=== PATIENT | female | born 1945 | race Caucasian/White ===

== ENCOUNTER 2020-04-14 20:14 | Inpatient (IN) | payer MEDICARE, MEDICAID, SELFPAY ==
--- NOTE | ~2020-04-14 | US_ITS ---
EXAMINATION: NONINVASIVE ASSESSMENT OF THE ARTERIES OF BOTH LOWER EXTREMITIES Kimo Longoria MD CLINICAL INFORMATION: Nonhealing ulcer TECHNIQUE: Bilateral lower extremity duplex ultrasound was performed with velocity measurements and waveform analysis in the common femoral arteries, profunda femoris arteries, proximal mid and distal superficial femoral arteries, popliteal arteries and tibial vessels. This study was performed only at rest. COMPARISON: CT abdomen pelvis 04/15/2020 FINDINGS: Velocities in cm/sec and phasicity as well as the presence of plaque are reported below. RIGHT LEG: There is monophasic flow present in the common femoral artery suggesting inflow disease with SFA occlusion poor runoff visualized. Common Femoral: 38 Profunda Femoris: 37 Proximal SFA: 28 Mid SFA: Occluded Distal SFA: 21, very little flow Popliteal: 48, very little flow Tibial: 27, very little flow LEFT LEG: There is monophasic flow present in the common femoral artery suggesting inflow disease with SFA occlusion and poor runoff. Common Femoral: 132 Profunda Femoris: Not seen Proximal SFA: 13.5, very little flow Mid SFA: Occluded Distal SFA: Occluded Popliteal: 54 Tibial: 28 US/US arterial duplex LE BI IMPRESSION: Marked bilateral peripheral vascular disease bilateral SFA occlusions and monophasic flow in the common femoral arteries suggestive of severe inflow disease. Recent noncontrast CT scan demonstrated considerable atherosclerotic plaque in the aorta and iliac vessels but without IV contrast, the luminal inflow cannot be assessed. CT angiography would be helpful for further evaluation. If the patient's creatinine precludes this, MR angiography may be of value, possibly even with iron contrast agents.
--- NOTE | ~2020-04-14 | XR_ITS ---
EXAMINATION: XR FOOT, RIGHT CLINICAL INFORMATION: Infected great toe. Suspected osteomyelitis. COMPARISON: None TECHNIQUE: AP, lateral, and oblique views of the right foot. FINDINGS: The tip of the terminal phalanx of the right great toe shows cortical destruction and radiolucencies with soft tissue gas seen within the adjacent soft tissues. The findings are highly suspicious for osteomyelitis. Extensive vascular, arterial calcifications are present. No additional sites of osteomyelitis is seen. XR/XR foot RT 2V IMPRESSION: Findings highly concerning for osteomyelitis involving the tip of the terminal phalanx of the right great toe.
--- NOTE | ~2020-04-14 | NM_ITS ---
Myocardial perfusion study Indication: Preoperative cardiovascular risk stratification Technique: The patient was brought in for a Lexiscan perfusion study on 04/21/2020. Patient performed low-level exercise and was injected 0.4 mg of Lexiscan intravenously. Within a minute of injection, 27 mCi of sestamibi was given intravenously. Images were obtained using the SPECT gamma camera interlaced with the gating device. Images were obtained in supine position. Resting perfusion study was performed on 04/20/2020. Patient was administered 27 mCi of sestamibi intravenously at rest. Images were then obtained in supine position. Images obtained with and without CT attenuation. Total DLP 75 mGy-cm. Images were processed with the software and compared side to side in short axis, horizontal long axis and vertical long axis views. Findings: The stress perfusion study showed non attenuated images show mildly reduced uptake in the basal and mid inferior wall of the LV myocardium. Remainder of the LV myocardium is normally perfused. There is suggestion of left ventricle hypertrophy. Attenuation corrected images show moderately reduced uptake in the basal inferior and mildly reduced uptake in the mid inferior as well as distal septum of the LV myocardium.. The gated study shows reduced LV systolic function with calculated LVEF of 41%. LV cavity is mildly dilated size. The gated study shows normal wall thickening and contraction of all segments except basal and mid inferior wall. Resting study shows normal uptake of radiotracer in all segments of LV myocardium on non attenuated images.. Gating at rest reveals normal systolic wall motion with ejection fraction at 58%. The findings are consistent with moderate size mild intensity mid and basal inferior wall ischemia. NM/NM vivienne perf SPECT rest & str Impression: 1. Myocardial perfusion imaging study shows moderate size inferior wall ischemia, however this may be underestimated given the TID and change in ejection fraction at rest 2. Gated LVEF is 41% with stress and 58% with rest 3. Transient ischemic dilatation present EKG is nondiagnostic for ischemia
--- NOTE | ~2020-04-14 | CT_ITS ---
EXAMINATION: CT RIGHT LOWER LEG AND RIGHT FOOT WITHOUT CONTRAST CLINICAL INFORMATION: Right great toe osteonecrosis/cellulitis. COMPARISON: None TECHNIQUE: 3 mm axial images of right lower leg from just above the knee joint to the right foot were obtained without contrast. 1 mm coronal and sagittal images of right lower leg and 2 mm thin sagittal and coronal images of right foot were obtained without contrast. This CT examination was performed using dose optimization techniques as appropriate, variously including the following: Automated exposure control. Adjustment of mA and/or kV according to patient size (this includes techniques or standardized protocols for targeted exams where dose is matched to indication/reason for exam; i.e. extremities or head). Use of iterative reconstruction technique. DLP: 369 mGy-cm FINDINGS: RIGHT LOWER LEG: There is atherosclerotic calcification of popliteal artery and bifurcation into anterior and posterior tibial branches. The posterior tibial artery extends into the right foot. The anterolateral and posterior muscular compartments appear normal and symmetrical to the contralateral side. There is no evidence of a cellulitis in the right mid lower leg. No periosteal thickening, fracture or lesions seen. RIGHT FOOT: There is mild superficial edema along the posterior right lower leg beginning about the ankle joint and extending to the level of ankle joint and inferiorly. There is superficial edema visualized in anterior and lateral foot. This edema extends into the anterior and posterior compartments of the proximal and mid foot region and beyond into the right great toe region. Mild focal gas collection is seen at the dorsal tip of the right greater toe likely from focal inflammatory process. There is no drainable abscess visualized. Visualized calcaneum, tarsal and mid foot bones are intact. No bony erosive changes seen involving the phalanges. No fracture seen either. No fracture or periosteal elevation. There is normal articulation of the intertarsal joints. No lytic or sclerotic process seen. CT/CT lower leg RT wo con IMPRESSION: Diffuse superficial edema involving posterior right lower leg extending into the anterior and posterior compartments of right foot and into the right great toe. There is a focal gas collection seen along the dorsal tip of the right great toe, but no drainable abscess seen. There is no bony erosive changes, periosteal thickening or fracture seen in the right lower extremity or the right foot. The joint spaces are maintained throughout. There is atherosclerotic calcification of anterior and posterior tibial arteries with posterior tibial artery continuing into the right foot.
--- NOTE | ~2020-04-14 | XR_ITS ---
EXAMINATION: XR CHEST CLINICAL INFORMATION: Cough and fever COMPARISON: 09/12/2017 TECHNIQUE: Frontal view of the chest was obtained. FINDINGS: Normal cardiomediastinal silhouette. Hypoinflation of the lungs with subtle hazy opacity in the right lower lobe. No pleural effusion or pneumothorax. No acute osseous abnormality. XR/XR chest 1V IMPRESSION: Low lung volumes with subtle hazy opacity in the right lower lobe that may reflect atelectasis or developing infiltrate.
--- NOTE | ~2020-04-14 | CT_ITS ---
EXAMINATION: CT ABDOMEN AND PELVIS WITHOUT CONTRAST CLINICAL INFORMATION: Abdominal discomfort/back pain COMPARISON: None TECHNIQUE: Multidetector volumetric imaging was performed from the superior aspect of the liver through the pubic symphysis. Sagittal and coronal reformatted images were obtained on the technologist's workstation. This CT examination was performed using dose optimization techniques as appropriate, variously including the following: *Automated exposure control *Adjustment of mA and/or kV according to patient size (this includes techniques or standardized protocols for targeted exams where dose is matched to indication/reason for exam; i.e. extremities or head) *Use of iterative reconstruction technique DLP: 468 mGy-cm FINDINGS: LUNG BASES: The visualized lung bases are unremarkable. LIVER, GALLBLADDER, AND BILIARY TREE: The liver is normal in size, shape, and attenuation. No focal hepatic lesion or biliary ductal dilatation is present. The gallbladder is unremarkable with no evidence of radiopaque gallstones, gallbladder wall thickening, or obvious pericholecystic inflammatory changes. PANCREAS: Unremarkable. SPLEEN: Unremarkable. ADRENAL GLANDS: Unremarkable. KIDNEYS AND URETERS: The kidneys are normal in size, shape, and attenuation. Renal hilar calcifications are suspected to predominantly be vascular, though a few tiny parenchymal calculi may be present in the left kidney. No hydronephrosis, hydroureter, or obstructing calculi seen. No perinephric stranding. BLADDER: Minimally distended with a thick-walled appearance. Tiny focus of gas is present. GASTROINTESTINAL TRACT: Colonic diverticulosis is noted. There is prominent fat density at the hepatic flexure suspicious for a lipoma. No significant bowel wall thickening is seen. No evidence of bowel obstruction. No free fluid or free air is seen. ABDOMINAL WALL: No significant hernia is appreciated. LYMPH NODES: Normal. VASCULAR: There is atherosclerotic calcification along the aorta and iliac arteries. PELVIC VISCERA: Patient is status post hysterectomy. OSSEOUS STRUCTURES: There is extensive facet arthropathy of the lower lumbar spine with slightly greater than anterolisthesis of L3 on L4 and L4 on L5. CT/CT abdomen pelvis wo con IMPRESSION: 1. Extensive facet arthropathy of the lower lumbar spine. 2. Thick-walled appearance of the urinary bladder may be due to underdistention. Small focus of gas is present which could be due to recent catheterization versus infection in the proper clinical setting.
[2020-04-14 20:37] VITALS: BP 196/75; PULSE 108; RESP 20; TEMP 36.8; O2SAT 98; BMI 32.3
--- NOTE | 2020-04-14 20:45 | PC.NURSE ---
patient was brought back from triage by triage nurse, upon arriving into the room the patient was c/o rt foot pain 9/10 and described painful ambulation due to her foot pain.
--- NOTE | 2020-04-14 21:12 | ED.FEMALEGU ---
HPI - Female Genitourinary General Chief complaint: Urogenital-Female Stated complaint: ?Uti Time Seen by Provider: 04/14/20 20:52 Source: patient Mode of arrival: ambulatory Limitations: no limitations History of Present Illness HPI Narrative: 75-year-old female who presents emergency department with multiple complaints. The patient states that she is having pain in her right lower back with pain that radiates down her leg to her right foot. She states she has had back pain for over 2 years and is a constant. She states that she has had increased pain in her right foot and right leg over the last 1-2 weeks. The patient is blind he is not aware that her right foot and toe are swollen in her right foot appears to be infected. She states that the foot pain is moderate to severe in intensity, is constant and throbbing, the pain is worse with walking. She also complains of pain when she urinates. She states that this has been going on since October of 2019. She states she was treated with ciprofloxacin but this did not resolve her symptoms. She currently complains of painful urination and frequency. She denied fever, chills, nausea, vomiting. She states that she is feeling very weak. She also is complaining of constipation. She states that she has had constipation on off for many years. She states that she has been drinking prune juice and she is moving her bowels now. The patient is blind, she states that she lives at home alone. She states that she does have help from her daughter and her grandson. Related Data Allergies Allergy/AdvReac Type Severity Reaction Status Date / Time No Known Allergies Allergy Verified 04/14/20 20:37 [No Known Allergies*] Review of Systems Review of Systems: Yes all other systems are reviewed and are negative Neurologic: Reports Abnormal speech present REPLACED BY [facility] Past Medical History REPLACED BY [facility] Narrative: Patient has a history of diabetes. She is blind. She lives alone. She denies tobacco, alcohol and drug use. Medical History Blind Diabetes Social History Social History Alcohol intake: never Smoking Status: Former smoker Use of substances other than those prescribed or required for medical reasons: No Advance Directives: No Physical Exam Vital Signs: Vital Signs: Last Vital Signs Temp 98.2 F 04/14/20 22:00 Pulse 106 H 04/14/20 23:41 Resp 10 L 04/14/20 23:41 BP 180/84 H 04/14/20 23:41 Pulse Ox 98 04/14/20 23:41 Body Mass Index 32.3 Const: General: cooperative Orientation/consciousness: oriented to person and oriented to place Limitations: no limitations HENMT: Head: Yes normal to inspection, Yes normocephalic and Yes atraumatic Ears: external ears normal General nose exam: Normal external nose present Face and sinus: Yes normal facial exam Mouth: Normal oral and palatal mucosa present Throat: Yes posterior oropharynx normal Eyes: Periorbital: periorbital findings normal Eyelids: Yes eyelids normal Conjunctivae: conjunctivae normal Sclerae: sclerae normal Corneas: corneas normal Pupils: Equal, round and reactive pupils present Neck: Neck: Yes full ROM, Yes no lymphadenopathy, Yes no meningeal signs, Yes trachea midline and Yes supple Chest: Chest palpation & inspection: normal inspection of the chest and normal palpation of entire chest wall Resp: Effort & Inspection: normal respiratory effort and able to speak in complete sentences Auscultation: clear to auscultation bilaterally Cardio: Rate: regular rate Rhythm: regular rhythm Heart sounds: S1 normal heart sound present, S2 normal heart sound present and no murmurs GI: Inspection: Yes normal to inspection Palpation (GI): Soft to palpation, nontender, no guarding, not rigid and No hepatosplenomegaly present : General: Yes no CVA tenderness Back/Spine/Pelvis: Back: no CVA tenderness Cervical Spine: normal cervical lordosis Thoracic/Lumbar Spine: thoracic and lumbar spine normal to inspection and paraspinal muscle tenderness bilaterally in the mid lumbar and in the lower lumbar Skin: Lesions: no lesions Rashes: other (Right great toe infection) Wounds: no wounds Neuro: General: oriented to person, oriented to place and no meningeal signs Cranial nerves: Yes CN's II-XII intact bilaterally and Yes Equal, round and reactive pupils present Cognition (Neuro): normal cognition Speech: Abnormal speech present Motor exam (neuro): 5/5 motor strength present throughout Extrem: Other: The tip of the right great toe appears to be necrotic, the right great toe is erythematous and swollen, very tender to palpation, the erythema extends to the 1st and 2nd MTP joints, the left foot is swollen and tender compared to the right foot the swelling continues down to the right ankle. The right foot and ankle is warm to the touch compared to the left. Psych: Appearance: well kempt Mental Status: mental status grossly normal Speech and movement: Normal speech and movement present Affect: normal affect Attitude: cooperative Thought process: Normal thought process present Thought content: Normal thought content present Course Course Course Narrative: 75-year-old female with history of diabetes who presents with multiple complaints including back pain, constipation, right leg and foot pain and weakness. Physical examination reveals a cellulitis of the right great toe with necrosis at the tip and cellulitis of the right foot. I did order a sepsis workup on the patient. I will obtain an x-ray of the right foot to evaluate for possible osteomyelitis. The patient will be treated with Tylenol 975 mg orally for pain and Ancef 2 g IV for cellulitis. 2254: The patient's laboratory evaluation revealed anemia with an H&H of 8.8 in 28.6, elevated glucose of 293. The patient's BUN and creatinine are elevated at 48 and 3.18. I did order a 2nd L of normal saline IV. Potassium was elevated 6.0, I will repeat this to make sure that this not represent hemolysis. The patient's lactic acid was not elevated and the patient's COVID-19 is negative. I do not think the patient has sepsis at this time. The patient's x-ray of her right foot is consistent with osteomyelitis of the distal phalanx of the great toe. I will discuss the patient's presentation with the covering hospitalist. 2309: I did discuss the patient's presentation with the covering hospitalist the patient will be admitted for further treatment. 0009: The patient's repeat potassium was 5.3. Will continue to follow the potassium. I did reach the patient's daughter and informed her that the patient will be admitted for further treatment. MDM - Female Genitourinary Lab Data Result diagrams: 04/14/20 21:49 04/14/20 23:29 Labs: Lab Results 04/14/20 04/14/20 04/14/20 Range/Units 21:49 21:49 21:49 WBC 9.9 (4.8-10.8) X10*3/uL RBC 3.14 L (4.20-5.50) X10*6/uL Hgb 8.8 L (12.0-16.0) g/dl Hct 28.6 L (37-47) % MCV 91.1 (80-98) fL MCH 28.0 (27.0-33.0) pg MCHC 30.8 L (31.0-35.0) g/dl RDW 12.6 (11.0-16.0) % Plt Count 352 (160-400) X10*3/uL MPV 9.5 (9.4-12.3) fL Immature Gran % (Auto) 0.4 (0.0-0.4) % Neut % (Auto) 73.4 H (45-73) % Lymph % (Auto) 17.4 L (20-40) % [place] % (Auto) 7.3 (2-11) % Eos % (Auto) 0.9 (0-4) % Baso % (Auto) 0.6 (0-2) % Lymph # (Auto) 1.7 (1.2-4.9) X10*3/uL [place] # (Auto) 0.7 (0.1-1.2) X10*3/uL Eos # (Auto) 0.1 (0.0-0.4) X10*3/uL Baso # (Auto) 0.1 (0.0-0.2) X10*3/uL Abs Immat Gran (auto) 0.04 H (0.00-0.03) X10*3/uL Absolute Neuts (auto) 7.3 (2.0-8.3) X10*3/uL Absolute Nucleated RBC 0.000 (0.0-0.012) X10*3/uL Nucleated RBC % (auto) 0.0 (0.0-0.2) /100WBC ESR 114 H (0-20) MM/HR PT 12.8 (10.8-13.0) SEC INR 1.1 (0.9-1.1) APTT 36.8 (24.1-38.0) SEC Sodium (135-145) mmol/L Potassium (3.3-5.1) mmol/L Chloride (96-108) mmol/L Carbon Dioxide (22-29) mmol/L Anion Gap (12-20) BUN (9-16) mg/dL Creatinine (0.5-1.4) mg/dL Estim Creat Clear Calc Estimated GFR Random Glucose (60-115) mg/dL Lactic Acid (0.5-2.0) mmol/L Calcium (8.4-10.2) mg/dL Total Bilirubin (0.0-1.0) mg/dL AST (5-31) U/L ALT (0-31) U/L Alkaline Phosphatase (39-117) U/L Total Protein (6.5-8.0) g/dL Albumin (3.5-5.0) g/dL Lipase (8-78) U/L Urine Color Urine Appearance Urine pH (5.0-8.0) Ur Specific [place] (1.005-1.025) Urine Protein (NEG-TRACE) MG/DL Urine Glucose (UA) (NEG) MG/DL Urine Ketones (NEG) MG/DL Urine Blood (NEG) Urine Nitrite (NEG) Ur Leukocyte Esterase (NEG) Urine RBC (0) /HPF Urine WBC (0-4) /HPF Ur Squamous Epith Cells /LPF Urine Bacteria /LPF Urine Mucus /LPF COVID-19 ([facility]) (Negative) COVID-19 Clin Com 04/14/20 04/14/20 04/14/20 Range/Units 21:49 21:49 21:50 WBC (4.8-10.8) X10*3/uL RBC (4.20-5.50) X10*6/uL Hgb (12.0-16.0) g/dl Hct (37-47) % MCV (80-98) fL MCH (27.0-33.0) pg MCHC (31.0-35.0) g/dl RDW (11.0-16.0) % Plt Count (160-400) X10*3/uL MPV (9.4-12.3) fL Immature Gran % (Auto) (0.0-0.4) % Neut % (Auto) (45-73) % Lymph % (Auto) (20-40) % [place] % (Auto) (2-11) % Eos % (Auto) (0-4) % Baso % (Auto) (0-2) % Lymph # (Auto) (1.2-4.9) X10*3/uL [place] # (Auto) (0.1-1.2) X10*3/uL Eos # (Auto) (0.0-0.4) X10*3/uL Baso # (Auto) (0.0-0.2) X10*3/uL Abs Immat Gran (auto) (0.00-0.03) X10*3/uL Absolute Neuts (auto) (2.0-8.3) X10*3/uL Absolute Nucleated RBC (0.0-0.012) X10*3/uL Nucleated RBC % (auto) (0.0-0.2) /100WBC ESR (0-20) MM/HR PT (10.8-13.0) SEC INR (0.9-1.1) APTT (24.1-38.0) SEC Sodium 137 (135-145) mmol/L Potassium 6.0 H* (3.3-5.1) mmol/L Chloride 106 (96-108) mmol/L Carbon Dioxide 21 L (22-29) mmol/L Anion Gap 16 (12-20) BUN 48 H (9-16) mg/dL Creatinine 3.18 H (0.5-1.4) mg/dL Estim Creat Clear Calc 17.0 Estimated GFR 14 Random Glucose 293 H (60-115) mg/dL Lactic Acid 0.8 (0.5-2.0) mmol/L Calcium 8.3 L (8.4-10.2) mg/dL Total Bilirubin 0.3 (0.0-1.0) mg/dL AST 18 (5-31) U/L ALT < 6 (0-31) U/L Alkaline Phosphatase 78 (39-117) U/L Total Protein 7.3 (6.5-8.0) g/dL Albumin 3.5 (3.5-5.0) g/dL Lipase 66 (8-78) U/L Urine Color Urine Appearance Urine pH (5.0-8.0) Ur Specific [place] (1.005-1.025) Urine Protein (NEG-TRACE) MG/DL Urine Glucose (UA) (NEG) MG/DL Urine Ketones (NEG) MG/DL Urine Blood (NEG) Urine Nitrite (NEG) Ur Leukocyte Esterase (NEG) Urine RBC (0) /HPF Urine WBC (0-4) /HPF Ur Squamous Epith Cells /LPF Urine Bacteria /LPF Urine Mucus /LPF COVID-19 ([facility]) Negative (Negative) COVID-19 Clin Com See Note 04/14/20 Range/Units 23:03 WBC (4.8-10.8) X10*3/uL RBC (4.20-5.50) X10*6/uL Hgb (12.0-16.0) g/dl Hct (37-47) % MCV (80-98) fL MCH (27.0-33.0) pg MCHC (31.0-35.0) g/dl RDW (11.0-16.0) % Plt Count (160-400) X10*3/uL MPV (9.4-12.3) fL Immature Gran % (Auto) (0.0-0.4) % Neut % (Auto) (45-73) % Lymph % (Auto) (20-40) % [place] % (Auto) (2-11) % Eos % (Auto) (0-4) % Baso % (Auto) (0-2) % Lymph # (Auto) (1.2-4.9) X10*3/uL [place] # (Auto) (0.1-1.2) X10*3/uL Eos # (Auto) (0.0-0.4) X10*3/uL Baso # (Auto) (0.0-0.2) X10*3/uL Abs Immat Gran (auto) (0.00-0.03) X10*3/uL Absolute Neuts (auto) (2.0-8.3) X10*3/uL Absolute Nucleated RBC (0.0-0.012) X10*3/uL Nucleated RBC % (auto) (0.0-0.2) /100WBC ESR (0-20) MM/HR PT (10.8-13.0) SEC INR (0.9-1.1) APTT (24.1-38.0) SEC Sodium (135-145) mmol/L Potassium (3.3-5.1) mmol/L Chloride (96-108) mmol/L Carbon Dioxide (22-29) mmol/L Anion Gap (12-20) BUN (9-16) mg/dL Creatinine (0.5-1.4) mg/dL Estim Creat Clear Calc Estimated GFR Random Glucose (60-115) mg/dL Lactic Acid (0.5-2.0) mmol/L Calcium (8.4-10.2) mg/dL Total Bilirubin (0.0-1.0) mg/dL AST (5-31) U/L ALT (0-31) U/L Alkaline Phosphatase (39-117) U/L Total Protein (6.5-8.0) g/dL Albumin (3.5-5.0) g/dL Lipase (8-78) U/L Urine Color YELLOW Urine Appearance CLOUDY Urine pH 6.0 (5.0-8.0) Ur Specific [place] 1.020 (1.005-1.025) Urine Protein 2+ H (NEG-TRACE) MG/DL Urine Glucose (UA) 100 H (NEG) MG/DL Urine Ketones NEG (NEG) MG/DL Urine Blood 2+ H (NEG) Urine Nitrite POS H (NEG) Ur Leukocyte Esterase 2+ H (NEG) Urine RBC 1-4 (0) /HPF Urine WBC TNTC H (0-4) /HPF Ur Squamous Epith Cells 1+ /LPF Urine Bacteria 2+ /LPF Urine Mucus TRACE /LPF COVID-19 ([facility]) (Negative) COVID-19 Clin Com Discharge Plan Discharge Clinical Impression: Diabetic foot infection, Osteomyelitis of great toe of right foot, Acute kidney injury Patient Disposition: Admitted As Inpatient
[2020-04-14 21:56] LABS: MANUAL DIFF FLAG NO
[2020-04-14] MEDS: Acetaminophen 325 MG TABLET 975 MG PO (21:58)
[2020-04-14] MEDS: 0.9 % Sodium Chloride 1,000 ML 999 ML IV ×2 (21:58→23:19)
[2020-04-14 21:59] LABS: Basophils Absolute Auto 0.1 X10*3/uL (0.0-0.2); Basophils Percent Auto 0.6 % (0-2); Eosinophils Absolute Auto 0.1 X10*3/uL (0.0-0.4); Eosinophils Percent Auto 0.9 % (0-4); Hematocrit 28.6 % (37-47); Hemoglobin 8.8 g/dl (12.0-16.0); Imm Gran Abs Auto 0.04 X10*3/uL (0.00-0.03); Imm Gran Pct Auto 0.4 % (0.0-0.4); Lymphocytes Absolute Auto 1.7 X10*3/uL (1.2-4.9); Lymphocytes Percent Auto 17.4 % (20-40); Mean Corpuscular HGB Conc 30.8 g/dl (31.0-35.0); Mean Corpuscular Volume 91.1 fL (80-98); Mean Platelet Volume 9.5 fL (9.4-12.3); Monocytes Absolute Auto 0.7 X10*3/uL (0.1-1.2); Monocytes Percent Auto 7.3 % (2-11); Neutrophils Absolute Auto 7.3 X10*3/uL (2.0-8.3); Neutrophils Percent Auto 73.4 % (45-73); Platelet Count 352 X10*3/uL (160-400); Red Blood Count 3.14 X10*6/uL (4.20-5.50); Red Cell Distribution Width 12.6 % (11.0-16.0); White Blood Count 9.9 X10*3/uL (4.8-10.8)
[2020-04-14] MEDS: ceFAZolin Sodium/Dextrose,Iso 2 GM/50 ML PIGGYBACK IV (21:59)
[2020-04-14 22:00] VITALS: BP 186/79; PULSE 99; RESP 18; TEMP 36.8; O2SAT 99
[2020-04-14 22:05] LABS: INTERNATIONAL NORM RATIO 1.1 (0.9-1.1); Prothrombin Time 12.8 SEC (10.8-13.0)
--- NOTE | 2020-04-14 22:08 | PC.NURSE ---
patient a&ox3, iv inserted, labs drawn, covid swab performed, pt medicated per order, will continue to monitor.
[2020-04-14 22:14] LABS: Partial Thromboplastin Time 36.8 SEC (24.1-38.0)
[2020-04-14 22:19] LABS: COVID-19 Test Negative (Negative); IDNOW Serial# 9DD0AD1C
[2020-04-14 22:28] LABS: Lactic Acid 0.8 mmol/L (0.5-2.0)
[2020-04-14 22:30] LABS: Alanine Aminotransferase < 6 U/L (0-31); Albumin Level 3.5 g/dL (3.5-5.0); Alkaline Phosphatase 78 U/L (39-117); Aspartate Amino Transferase 18 U/L (5-31); Bilirubin Total 0.3 mg/dL (0.0-1.0); Blood Urea Nitrogen 48 mg/dL (9-16); Calcium 8.3 mg/dL (8.4-10.2); Estimated Glomerular Filt Rate 14; Glucose Random 293 mg/dL (60-115); Lipase 66 U/L (8-78); Sodium 137 mmol/L (135-145); Total Protein 7.3 g/dL (6.5-8.0)
[2020-04-14 22:37] LABS: Anion Gap 16 (12-20); Carbon Dioxide 21 mmol/L (22-29); Chloride 106 mmol/L (96-108)
--- NOTE | 2020-04-14 22:44 | ECG_ITS ---
Test Reason : REPEAT Blood Pressure : / mmHG Vent. Rate : 101 BPM Atrial Rate : 101 BPM P-R Int : 134 ms QRS Dur : 078 ms QT Int : 356 ms P-R-T Axes : 069 -61 043 degrees QTc Int : 461 ms Sinus tachycardia Left anterior fascicular block Abnormal ECG When compared with ECG of 12-SEP-2017 23:45, Nonspecific T wave abnormality now evident in Lateral leads Referred By: Adam Diaz Electronically Signed By:GEOVANNI GAITAN
[2020-04-14 22:45] LABS: Erythrocyte Sedimentation Rate 114 MM/HR (0-20)
--- NOTE | 2020-04-14 23:12 | PM.IMHP ---
History of Present Illness Date of Service: 04/14/20 Chief Complaint: leg pain 75-year-old female with a past medical history of hypertension, hyperlipidemia, diabetes, legally blind, lives alone presented to the hospital with a chief complaint of right foot and leg pain. Patient denies any chest pain palpitations lightheadedness or dizziness. Denies any GI or symptoms. Review of all other systems is negative except mentioned above ER course: Per ER physician patient noted to have KRYSTYNA and hyperkalemia, given insulin and dextrose. Repeat labs pending. Also noted to have diabetic foot infection/cellulitis with tip of the right great toe necrosis. X-rays concerning for osteomyelitis. Given IV antibiotics. Blood cultures and. Admitted to the hospital for further management. [facility] Medical History Blind Diabetes Social History Household Members: None Housing: Condominium Do you presently have visiting nurse or other home services: No Alcohol intake: never Smoking Status: Former smoker Use of substances other than those prescribed or required for medical reasons: No Currently Displaying Signs/Symptoms of Drug Intoxication Withdrawal: No Have you been hit, kicked, punched, or otherwise hurt by someone within the past year? If so, by whom?: No Do you feel safe in your current relationship?: No Current Relationship Is there a partner from a previous relationship who is making you feel unsafe now?: No Are you made to feel afraid or neglected: No Advance Directives: No Do you have thoughts of harming others: None Do you have a plan to hurt others: No Plan Recently lost weight without trying: Yes Meds Allergies Allergy/AdvReac Type Severity Reaction Status Date / Time No Known Allergies Allergy Verified 04/14/20 20:37 [No Known Allergies*] Active Medications: Current Medications Generic Name Dose Route Start Last Admin Trade Name Freq PRN Reason Stop Dose Admin Acetaminophen 650 mg 04/14/20 23:06 Acetaminophen 325 Mg Tablet PO Q6H PRN Pain, Mild (Pain Scale 1-3) Docusate Sodium 100 mg 04/15/20 09:00 Docusate Sodium 100 Mg Capsule PO BID RAUL Heparin Sodium (Porcine) 5,000 unit 04/14/20 23:15 Heparin Sodium,Porcine 5,000 Unit/Ml Vial SUBCUT Q12H [facility] Sodium Chloride 1,000 mls @ 999 mls/hr 04/14/20 22:53 Ns IV 04/14/20 23:53 .Q1H1M STA Vancomycin HCl 1,000 mg/ 270 mls @ 270 mls/hr 04/14/20 23:15 Sodium Chloride IV Q12H RAUL Piperacillin Sod/Tazobactam 50 mls @ 100 mls/hr 04/14/20 23:15 Sod 2.25 gm/ Sodium Chloride IV Q8H RAUL Sodium Chloride 1,000 mls @ 100 mls/hr 04/14/20 23:15 IVCONT .Q10H RAUL Insulin Human Lispro 0 unit 04/15/20 07:30 Insulin Lispro 100 Unit/Ml 3 Ml Vial SUBCUT QIDACHS [facility] Protocol Pharmacy Consult 1 each 04/14/20 22:58 Consult Rx Perform Med Rec MISCELLANE ONCE PRN Consult order Pharmacy Consult 1 each 04/14/20 23:02 Consult Rx Vancomycin Dosing MISCELLANE DAILY PRN Consult order Senna 17.2 mg 04/14/20 23:06 Sennosides 8.6 Mg Tablet PO BEDTIME PRN Constipation Sodium Chloride 3 ml 04/15/20 00:00 0.9 % Sodium Chloride Flush 3 Ml Syringe IVFLUSH QSHIFT [facility] Home Medications Medication Instructions Recorded Confirmed Last Taken Type aspirin 81 mg PO DAILY 04/15/20 04/15/20 Unknown History atropine 1 drp BID 04/15/20 04/15/20 Unknown History glyburide 1 tab PO BID 04/15/20 04/15/20 Unknown History prednisolone acetate 1 drp DAILY 04/15/20 04/15/20 Unknown History timolol maleate 1 drp OPHTHALMIC-RIGHT DAILY 04/15/20 04/15/20 Unknown History Physical Exam Vital Signs and Narrative: Vital Signs: Last Vital Signs Temp 98.2 F 04/14/20 22:00 Pulse 99 04/14/20 22:00 Resp 18 04/14/20 22:00 BP 186/79 H 04/14/20 22:00 Pulse Ox 99 04/14/20 22:00 Body Mass Index 32.3 Gen: Appears be in no acute distress HEENT: NCAT, Moist mucosa. Pulmonary: Vesicular breath sounds, fair air entry CVS: Normal S1-S2 Abdomen: BS+, Soft, Nontender Extremities: Warm well perfused; right foot vomited and hyperemia, right great to hyperemic with tip having necrotic findings. Neuro: Alert and awake. Results Labs CBC and Chem 7: 04/15/20 06:03 04/15/20 06:03 Labs: Laboratory Results - last 24 hr 04/14/20 04/14/20 04/14/20 21:49 21:49 21:49 MCV 91.1 MCH 28.0 MCHC 30.8 L RDW 12.6 Plt Count 352 MPV 9.5 Immature Gran % (Auto) 0.4 Neut % (Auto) 73.4 H Lymph % (Auto) 17.4 L [place] % (Auto) 7.3 Eos % (Auto) 0.9 Baso % (Auto) 0.6 Lymph # (Auto) 1.7 [place] # (Auto) 0.7 Eos # (Auto) 0.1 Baso # (Auto) 0.1 Abs Immat Gran (auto) 0.04 H Absolute Neuts (auto) 7.3 Absolute Nucleated RBC 0.000 Nucleated RBC % (auto) 0.0 ESR 114 H PT 12.8 INR 1.1 APTT 36.8 Anion Gap Estim Creat Clear Calc Estimated GFR Random Glucose Lactic Acid Calcium Total Bilirubin AST ALT Alkaline Phosphatase Total Protein Albumin Lipase COVID-19 ([facility]) COVID-[place] 04/14/20 04/14/20 04/14/20 21:49 21:49 21:50 MCV MCH MCHC RDW Plt Count MPV Immature Gran % (Auto) Neut % (Auto) Lymph % (Auto) [place] % (Auto) Eos % (Auto) Baso % (Auto) Lymph # (Auto) [place] # (Auto) Eos # (Auto) Baso # (Auto) Abs Immat Gran (auto) Absolute Neuts (auto) Absolute Nucleated RBC Nucleated RBC % (auto) ESR PT INR APTT Anion Gap 16 Estim Creat Clear Calc 17.0 Estimated GFR 14 Random Glucose 293 H Lactic Acid 0.8 Calcium 8.3 L Total Bilirubin 0.3 AST 18 ALT < 6 Alkaline Phosphatase 78 Total Protein 7.3 Albumin 3.5 Lipase 66 COVID-19 ([facility]) Negative COVID-19 Clin Com See Note Imaging Radiologist's Impressions: Impressions Foot X-Ray 04/14/20 21:05 IMPRESSION: Findings highly concerning for osteomyelitis involving the tip of the terminal phalanx of the right great toe. Assessment and Plan (1) Diabetic foot infection: Status: Acute 75-year-old female with a past medical history of hypertension, hyperlipidemia, diabetes, legally blind, lives alone presented to the hospital with a chief complaint of right lower extremity pain. Right leg cellulitis/diabetic foot infection/osteomyelitis of great toe: Noted tip of the great toe necrosis. Will keep the patient on IV vancomycin and Zosyn. Orthopedics consulted for further recommendations from great toe. Will obtain a CT of the leg and CT of the foot Id consult Back pain: Chronic; Non focal; CT shows There is extensive facet arthropathy of the lower lumbar spine with slightly greater than anterolisthesis of L3 on L4 and L4 on L5. UTI: CT shows Thick bladder; on antibiotics; Urology consult KRYSTYNA: Unknown baseline creatinine. IV fluids. Nephrology consult; CT abdomen Hyperkalemia: Received insulin and dextrose. Repeat levels. Diabetes: Insulin sliding scale Hypertension/hyperlipidemia: Continue home medications. Patient's blood pressure slightly elevated. Will continue to monitor. Legally Mariel: c/w home eye drops; Will defer ti AM to confirm home eye drops dosages and directions. Code status: Full code
[2020-04-14 23:16] LABS: Appearance Urine CLOUDY; Color Urine YELLOW; Glucose Urine UA 100 MG/DL (NEG); Leukocyte Esterase Urine 2+ (NEG); Nitrite Urine POS (NEG); UACC Culture Trigger YES; Urine Blood 2+ (NEG); Urine Ketones NEG (NEG); Urine Protein 2+ MG/DL (NEG-TRACE)
[2020-04-14 23:22] LABS: Bacteria Urine 2+ /LPF; Mucus Urine TRACE /LPF; Squamous Epithelial Cell Urine 1+ /LPF; WBC Urine TNTC /HPF (0-4)
[2020-04-14 23:41] VITALS: BP 180/84; PULSE 106; RESP 10; O2SAT 98
[2020-04-14 23:53] LABS: Potassium 5.3 mmol/L (3.3-5.1)
[2020-04-15] VITALS (7 sets, daily range): BP systolic 140–182; BP diastolic 62–80; PULSE 85–105; RESP 17–18; TEMP 36.6–37.7; O2SAT 93–97
[2020-04-15] MEDS: 0.9 % Sodium Chloride Flush 3 ML SYRINGE IVFLUSH ×2 (02:09→09:11)
[2020-04-15] MEDS: Sodium Chloride 0.45 % 1,000 ML 100 ML IVCONT ×2 (02:10→15:03)
[2020-04-15] MEDS: Heparin Sodium,Porcine 5,000 UNIT/ML VIAL 5000 UNIT SUBCUT ×3 (02:16→22:35)
[2020-04-15] MEDS: Piperacillin Sodium/Tazobactam 2.25 GM in 0.9 % Sodium Chloride 50 ML IV ×3 (02:17→16:59)
[2020-04-15] MEDS: vancomycin HCL 1,000 MG in 0.9 % Sodium Chloride 250 ML 270 MG IV (02:51)
[2020-04-15] MEDS: oxyCODONE HCl Immed Release 5 MG TABLET 2.5 MG PO (03:15)
[2020-04-15 07:04] LABS: MANUAL DIFF FLAG NO
[2020-04-15 07:16] LABS: Basophils Absolute Auto 0.1 X10*3/uL (0.0-0.2); Basophils Percent Auto 0.7 % (0-2); Eosinophils Absolute Auto 0.2 X10*3/uL (0.0-0.4); Eosinophils Percent Auto 2.7 % (0-4); Hematocrit 25.5 % (37-47); Hemoglobin 7.8 g/dl (12.0-16.0); Imm Gran Abs Auto 0.04 X10*3/uL (0.00-0.03); Imm Gran Pct Auto 0.5 % (0.0-0.4); Lymphocytes Percent Auto 23.6 % (20-40); Mean Corpuscular HGB Conc 30.6 g/dl (31.0-35.0); Mean Corpuscular Hemoglobin 27.7 pg (27.0-33.0); Mean Corpuscular Volume 90.4 fL (80-98); Monocytes Absolute Auto 0.8 X10*3/uL (0.1-1.2); Monocytes Percent Auto 9.3 % (2-11); Neutrophils Absolute Auto 5.5 X10*3/uL (2.0-8.3); Neutrophils Percent Auto 63.2 % (45-73); Platelet Count 341 X10*3/uL (160-400); Red Blood Count 2.82 X10*6/uL (4.20-5.50); Red Cell Distribution Width 12.5 % (11.0-16.0); White Blood Count 8.6 X10*3/uL (4.8-10.8)
[2020-04-15 07:39] LABS: Blood Urea Nitrogen 43 mg/dL (9-16); Creatinine Clr Calc Pharmacy 20.5; Estimated Glomerular Filt Rate 18; Glucose Random 137 mg/dL (60-115)
[2020-04-15 07:58] LABS: Anion Gap 13 (12-20); Calcium 7.8 mg/dL (8.4-10.2); Carbon Dioxide 21 mmol/L (22-29); Chloride 111 mmol/L (96-108); Potassium 5.4 mmol/L (3.3-5.1); Sodium 140 mmol/L (135-145)
[2020-04-15 08:05] LABS: Glucose, Whole Blood 129 mg/dL (60-115)
[2020-04-15] MEDS: Docusate Sodium 100 MG CAPSULE PO ×2 (09:12→22:35)
[2020-04-15] MEDS: glyBURIDE 5 MG TABLET PO ×2 (09:12→17:00)
[2020-04-15] MEDS: Aspirin 81 MG TAB.CHEW PO (09:12)
[2020-04-15] MEDS: Atropine Sulfate 1 % Ophth Sol 2 ML BOTTLE 1 DROP EYE-LEFT ×3 (09:13→22:39)
[2020-04-15] MEDS: prednisoLONE Acetate 1 % Oph Susp 5 ML DRPBTL 1 DROP EYE-LEFT (09:14)
--- NOTE | 2020-04-15 09:16 | P.PNIM_ITS ---
Subjective Subjective Date of Service: 04/15/20 <Ronda Yoo NP - Last Filed: 04/15/20 14:08> 04/15/20 <Olivier Root MD - Last Filed: 04/15/20 15:32> Interval History: Follow up for UTI and right great toe necrosis. She is feeling better today, less abdominal pain. She is having some exacerbation of back pain <Ronda Yoo NP - Last Filed: 04/15/20 14:08> Physical Exam Vital Signs: Vital Signs: Last Vital Signs Temp 97.8 F 04/15/20 08:00 Pulse 102 H 04/15/20 08:00 Resp 17 04/15/20 08:00 BP 160/70 H 04/15/20 08:00 Pulse Ox 95 04/15/20 08:00 Body Mass Index 32.3 <Ronda Yoo NP - Last Filed: 04/15/20 14:08> Appearing in no acute distress head is normocephalic atraumatic lung sounds are clear to auscultation heart regular rate rhythm, clear S1, S2 positive bowel sounds, abdomen is soft, nontender neuro patient is alert x3, no focal deficits Skin. Dry feet bilaterally, Right great toe necrosis with eschar <Ronda Yoo NP - Last Filed: 04/15/20 14:08> Objective Data Current Medications Generic Name Dose Route Start Last Admin Trade Name Freq PRN Reason Stop Dose Admin Acetaminophen 650 mg 04/14/20 23:06 Acetaminophen 325 Mg Tablet PO Q6H PRN Pain, Mild (Pain Scale 1-3) Aspirin 81 mg 04/15/20 09:00 Aspirin 81 Mg Tab.Chew PO DAILY [facility] Atropine Sulfate 1 drop 04/15/20 09:00 Atropine Sulfate 1 % Ophth Jacki 2 Ml Bottle EYE-LEFT TID RAUL Docusate Sodium 100 mg 04/15/20 09:00 Docusate Sodium 100 Mg Capsule PO BID RAUL Glyburide 5 mg 04/15/20 08:00 Glyburide 5 Mg Tablet PO BIDWM [facility] Heparin Sodium (Porcine) 5,000 unit 04/14/20 23:15 04/15/20 02:16 Heparin Sodium,Porcine 5,000 Unit/Ml Vial SUBCUT 5,000 unit BID RAUL Administration Piperacillin Sod/Tazobactam 50 mls @ 100 mls/hr 04/15/20 00:00 04/15/20 02:52 Sod 2.25 gm/ Sodium Chloride IV Infused Q8H [facility] Infusion Sodium Chloride 1,000 mls @ 100 mls/hr 04/14/20 23:15 04/15/20 02:10 IVCONT 100 mls/hr .Q10H RAUL Administration Insulin Human Lispro 0 unit 04/15/20 07:30 04/15/20 08:22 Insulin Lispro 100 Unit/Ml 3 Ml Vial SUBCUT Not Given QIDACHS [facility] Protocol Lidocaine 2 patch 04/15/20 09:15 Lidocaine 4 % Patch Adh..Patch TRANSDERMA DAILY [facility] Protocol Oxycodone HCl 2.5 mg 04/15/20 02:39 04/15/20 03:15 Oxycodone Hcl Immed Release 5 Mg Tablet PO 2.5 mg Q6H PRN Administration [facility] Consult 1 each 04/14/20 22:58 Consult Rx Perform Med Rec MISCELLANE ONCE PRN Consult order Pharmacy Consult 1 each 04/14/20 23:02 Consult Rx Vancomycin Dosing MISCELLANE DAILY PRN Consult order Prednisolone Acetate 1 drop 04/15/20 09:00 Prednisolone Acetate 1 % Oph Susp 5 Ml Drpbtl EYE-LEFT DAILY RAUL Senna 17.2 mg 04/14/20 23:06 Sennosides 8.6 Mg Tablet PO BEDTIME PRN Constipation Sodium Chloride 3 ml 04/15/20 00:00 04/15/20 02:09 0.9 % Sodium Chloride Flush 3 Ml Syringe IVFLUSH 3 ml QSHIFT RAUL Administration Timolol Maleate 1 drop 04/15/20 09:00 Timolol Maleate Xe 0.25 % Gel 5 Ml Drbtl EYE-RIGHT DAILY RAUL <Ronda Yoo NP - Last Filed: 04/15/20 14:08> Labs CBC & Chem 7: : 04/15/20 06:03 04/15/20 06:03 <Ronda Yoo NP - Last Filed: 04/15/20 14:08> Assessment and Plan (1) Diabetic foot infection: Status: Acute <Ronda Yoo NP - Last Filed: 04/15/20 14:08> Assessment and Plan: 75-year-old female with a past medical history of hypertension, hyperlipidemia, diabetes, legally blind, lives alone presented to the hospital with a chief complaint of right lower extremity pain. # Diabetic foot infection/? osteomyelitis of great toe -Stop Vanco will continue Zosyn for now -General surgery/vascular consult for debridement, may need amputation. -Consider wound care consult # UTI -Zosyn -Follow urine culture # KRYSTYNA. Patient states chronic, ? diabetic nephropathy -Nephrology consult. -Avoid nephrotoxins. #Hyperkalemia. -Kayex now. Trend. #Back pain. Chronic -Add Lidocaine patch, continue Oxycodone. #Diabetes -Insulin sliding scale, ADA diet # Legally Blind -Home eye drops. Attending: Dr. Root. <Ronda Yoo NP - Last Filed: 04/15/20 14:08>
[2020-04-15] MEDS: Sodium Polystyrene Sulfon/Sorb 15 GM/60 ML ORAL.SUSP PO (10:41)
[2020-04-15] MEDS: Lidocaine 4 % Patch ADH..PATCH 2 PATCH TRANSDERMA (10:42)
--- NOTE | 2020-04-15 10:57 | PM.CNGS ---
History of Present Illness Consult details Consult date: 04/15/20 <MARI Dyson - Last Filed: 04/15/20 11:27> Requesting physician: Ronda Yoo <MARI Dyson - Last Filed: 04/15/20 11:27> Narrative: 75 yo female w/ hx of DM presents for 1-2 weeks of worsening Right foot, Right leg and Right back pain. She states that the pain has been worsening and is consistently worse with walking. Patient is legally blind so she is unable to see how the foot looks. She presented to the ED yesterday for worsening sympotms. X-Ray in ED showed liekly osteomyelitis of the Right great toe. CT scan results are pending. Patient was examined at bedside this AM. She reports that her pain has improved. No new complaints. <MARI Dyson - Last Filed: 04/15/20 11:27> Review of Systems Review of Systems: Yes all other systems are reviewed and are negative <MARI Dyson - Last Filed: 04/15/20 11:27> Musculoskeletal: Musculoskeletal: Reports back pain <MARI Dyson - Last Filed: 04/15/20 11:27> Comments: Right foot pain. <MARI Dyson - Last Filed: 04/15/20 11:27> [facility] Past Medical History Medical History: Medical History Blind Diabetes <MARI Dyson - Last Filed: 04/15/20 11:27> Social History Social History: Social History Household Members: None Housing: Condominium Do you presently have visiting nurse or other home services: No Alcohol intake: never Smoking Status: Former smoker Use of substances other than those prescribed or required for medical reasons: No Currently Displaying Signs/Symptoms of Drug Intoxication Withdrawal: No Have you been hit, kicked, punched, or otherwise hurt by someone within the past year? If so, by whom?: No Do you feel safe in your current relationship?: No Current Relationship Is there a partner from a previous relationship who is making you feel unsafe now?: No Are you made to feel afraid or neglected: No Advance Directives: No Do you have thoughts of harming others: None Do you have a plan to hurt others: No Plan Recently lost weight without trying: Yes <MARI Dyson - Last Filed: 04/15/20 11:27> Meds Allergies/Adverse reactions: Allergies Allergy/AdvReac Type Severity Reaction Status Date / Time No Known Allergies Allergy Verified 04/14/20 20:37 [No Known Allergies*] <MARI Dyson - Last Filed: 04/15/20 11:27> Active Medications: Current Medications Generic Name Dose Route Start Last Admin Trade Name Freq PRN Reason Stop Dose Admin Acetaminophen 650 mg 04/14/20 23:06 Acetaminophen 325 Mg Tablet PO Q6H PRN Pain, Mild (Pain Scale 1-3) Aspirin 81 mg 04/15/20 09:00 04/15/20 09:12 Aspirin 81 Mg Tab.Chew PO 81 mg DAILY [facility] Administration Atropine Sulfate 1 drop 04/15/20 09:00 04/15/20 09:13 Atropine Sulfate 1 % Ophth Jacki 2 Ml Bottle EYE-LEFT 1 drop TID [facility] Administration Docusate Sodium 100 mg 04/15/20 09:00 04/15/20 09:12 Docusate Sodium 100 Mg Capsule PO 100 mg BID RAUL Administration Glyburide 5 mg 04/15/20 08:00 04/15/20 09:12 Glyburide 5 Mg Tablet PO 5 mg BIDWM RAUL Administration Heparin Sodium (Porcine) 5,000 unit 04/14/20 23:15 04/15/20 09:11 Heparin Sodium,Porcine 5,000 Unit/Ml Vial SUBCUT 5,000 unit BID [facility] Administration Piperacillin Sod/Tazobactam 50 mls @ 100 mls/hr 04/15/20 00:00 04/15/20 10:27 Sod 2.25 gm/ Sodium Chloride IV Infused Q8H [facility] Infusion Sodium Chloride 1,000 mls @ 100 mls/hr 04/14/20 23:15 04/15/20 10:45 IVCONT Not Given .Q10H [facility] Insulin Human Lispro 0 unit 04/15/20 07:30 04/15/20 08:22 Insulin Lispro 100 Unit/Ml 3 Ml Vial SUBCUT Not Given QIDACHS [facility] Protocol Lidocaine 2 patch 04/15/20 09:15 04/15/20 10:42 Lidocaine 4 % Patch Adh..Patch TRANSDERMA 2 patch DAILY RAUL Administration Protocol Oxycodone HCl 2.5 mg 04/15/20 02:39 04/15/20 03:15 Oxycodone Hcl Immed Release 5 Mg Tablet PO 2.5 mg Q6H PRN Administration [facility] Consult 1 each 04/14/20 22:58 Consult Rx Perform Med Rec MISCELLANE ONCE PRN Consult order Pharmacy Consult 1 each 04/14/20 23:02 Consult Rx Vancomycin Dosing MISCELLANE DAILY PRN Consult order Prednisolone Acetate 1 drop 04/15/20 09:00 04/15/20 09:14 Prednisolone Acetate 1 % Oph Susp 5 Ml Drpbtl EYE-LEFT 1 drop DAILY RAUL Administration Senna 17.2 mg 04/14/20 23:06 Sennosides 8.6 Mg Tablet PO BEDTIME PRN Constipation Sodium Chloride 3 ml 04/15/20 00:00 04/15/20 09:11 0.9 % Sodium Chloride Flush 3 Ml Syringe IVFLUSH 3 ml QSHIFT RAUL Administration Timolol Maleate 1 drop 04/15/20 09:00 04/15/20 10:07 Timolol Maleate Xe 0.25 % Gel 5 Ml Drbtl EYE-RIGHT Not Given DAILY [facility]UL <MARI Dyson - Last Filed: 04/15/20 11:27> Home medications: Home Medications Medication Instructions Recorded Confirmed Last Taken Type aspirin 81 mg PO DAILY 04/15/20 04/15/20 Unknown History atropine 1 drp BID 04/15/20 04/15/20 Unknown History glyburide 1 tab PO BID 04/15/20 04/15/20 Unknown History prednisolone acetate 1 drp DAILY 04/15/20 04/15/20 Unknown History timolol maleate 1 drp OPHTHALMIC-RIGHT DAILY 04/15/20 04/15/20 Unknown History <MARI Dyson - Last Filed: 04/15/20 11:27> Physical Exam Vital Signs: Vital Signs: Last Vital Signs Temp 97.8 F 04/15/20 08:00 Pulse 102 H 04/15/20 08:00 Resp 17 04/15/20 08:00 BP 160/70 H 04/15/20 08:00 Pulse Ox 95 04/15/20 08:00 Body Mass Index 32.3 <MARI Dyson - Last Filed: 04/15/20 11:27> Const: General: cooperative, no acute distress and awake <MARI Dyson Last Filed: 04/15/20 11:27> Eyes: Other: Legally blind <MARI Dyson Dalia Last Filed: 04/15/20 11:27> Neck: Neck: Yes no JVD <MARI Dyson Dalia Last Filed: 04/15/20 11:27> Resp: Effort & Inspection: normal respiratory effort and able to speak in complete sentences <MARI Dyson - Last Filed: 04/15/20 11:27> Cardio: Rate: tachycardic <MARI Dyson Last Filed: 04/15/20 11:27> Peripheral pulses: other (Unable to plapate DP, PT bilaterally) <MARI Dyson - Last Filed: 04/15/20 11:27> Extrem: Other: Right great toe medial tip appears necrotic, the right great toe is erythematous and swollen, tender to palpation, the erythema extends to the 1st and 2nd MTP joints. Tenderness extends to the ankle. There is no distinct pocket on fluctuance. <MARI Dyson Last Filed: 04/15/20 11:27> Results Labs Result diagrams: : 04/15/20 06:03 04/15/20 06:03 <MARI Dyson - Last Filed: 04/15/20 11:27> Labs: Abnormal lab results 04/14/20 04/14/20 04/14/20 Range/Units 21:49 21:49 21:49 RBC 3.14 L (4.20-5.50) X10*6/uL Hgb 8.8 L (12.0-16.0) g/dl Hct 28.6 L (37-47) % MCHC 30.8 L (31.0-35.0) g/dl Immature Gran % (Auto) (0.0-0.4) % Neut % (Auto) 73.4 H (45-73) % Lymph % (Auto) 17.4 L (20-40) % Abs Immat Gran (auto) 0.04 H (0.00-0.03) X10*3/uL ESR 114 H (0-20) MM/HR Potassium 6.0 H* (3.3-5.1) mmol/L Chloride (96-108) mmol/L Carbon Dioxide 21 L (22-29) mmol/L BUN 48 H (9-16) mg/dL Creatinine 3.18 H (0.5-1.4) mg/dL POC Glucose (60-115) mg/dL Random Glucose 293 H (60-115) mg/dL Calcium 8.3 L (8.4-10.2) mg/dL Urine Protein (NEG-TRACE) MG/DL Urine Glucose (UA) (NEG) MG/DL Urine Blood (NEG) Urine Nitrite (NEG) Ur Leukocyte Esterase (NEG) Urine WBC (0-4) /HPF 04/14/20 04/14/20 04/15/20 Range/Units 23:03 23:29 06:03 RBC 2.82 L (4.20-5.50) X10*6/uL Hgb 7.8 L (12.0-16.0) g/dl Hct 25.5 L (37-47) % MCHC 30.6 L (31.0-35.0) g/dl Immature Gran % (Auto) 0.5 H (0.0-0.4) % Neut % (Auto) (45-73) % Lymph % (Auto) (20-40) % Abs Immat Gran (auto) 0.04 H (0.00-0.03) X10*3/uL ESR (0-20) MM/HR Potassium 5.3 H (3.3-5.1) mmol/L Chloride (96-108) mmol/L Carbon Dioxide (22-29) mmol/L BUN (9-16) mg/dL Creatinine (0.5-1.4) mg/dL POC Glucose (60-115) mg/dL Random Glucose (60-115) mg/dL Calcium (8.4-10.2) mg/dL Urine Protein 2+ H (NEG-TRACE) MG/DL Urine Glucose (UA) 100 H (NEG) MG/DL Urine Blood 2+ H (NEG) Urine Nitrite POS H (NEG) Ur Leukocyte Esterase 2+ H (NEG) Urine WBC TNTC H (0-4) /HPF 04/15/20 04/15/20 Range/Units 06:03 07:26 RBC (4.20-5.50) X10*6/uL Hgb (12.0-16.0) g/dl Hct (37-47) % MCHC (31.0-35.0) g/dl Immature Gran % (Auto) (0.0-0.4) % Neut % (Auto) (45-73) % Lymph % (Auto) (20-40) % Abs Immat Gran (auto) (0.00-0.03) X10*3/uL ESR (0-20) MM/HR Potassium 5.4 H (3.3-5.1) mmol/L Chloride 111 H (96-108) mmol/L Carbon Dioxide 21 L (22-29) mmol/L BUN 43 H (9-16) mg/dL Creatinine 2.65 H (0.5-1.4) mg/dL POC Glucose 129 H (60-115) mg/dL Random Glucose 137 H D (60-115) mg/dL Calcium 7.8 L D (8.4-10.2) mg/dL Urine Protein (NEG-TRACE) MG/DL Urine Glucose (UA) (NEG) MG/DL Urine Blood (NEG) Urine Nitrite (NEG) Ur Leukocyte Esterase (NEG) Urine WBC (0-4) /HPF Short CBC 04/14/20 04/15/20 Range/Units 21:49 06:03 WBC 9.9 8.6 (4.8-10.8) X10*3/uL Hgb 8.8 L 7.8 L (12.0-16.0) g/dl Hct 28.6 L 25.5 L (37-47) % Plt Count 352 341 (160-400) X10*3/uL BMP 04/14/20 04/14/20 04/15/20 21:49 23:29 06:03 Sodium 137 140 Potassium 6.0 H* 5.3 H 5.4 H Chloride 106 111 H Carbon Dioxide 21 L 21 L BUN 48 H 43 H Creatinine 3.18 H 2.65 H Calcium 8.3 L 7.8 L D Liver Function 04/14/20 Range/Units 21:49 Total Bilirubin 0.3 (0.0-1.0) mg/dL AST 18 (5-31) U/L ALT < 6 (0-31) U/L Alkaline Phosphatase 78 (39-117) U/L Albumin 3.5 (3.5-5.0) g/dL Urine 04/14/20 Range/Units 23:03 Urine Color YELLOW Urine Appearance CLOUDY Urine pH 6.0 (5.0-8.0) Ur Specific [place] 1.020 (1.005-1.025) Urine Protein 2+ H (NEG-TRACE) MG/DL Urine Glucose (UA) 100 H (NEG) MG/DL All other labs normal. <MARI Dyson - Last Filed: 04/15/20 11:27> Assessment and Plan (1) Osteomyelitis of great toe of right foot: Problem details: 75 yo female w/ hx of DM presents with 1-2 weeks of worsening Right foot pain. Evidence of osteomyelitis via XR.Absent peripheral pulses. <MARI Dyson - Last Filed: 04/15/20 11:27> Status: Acute <MARI Dyson - Last Filed: 04/15/20 11:27> Vascular consult. Continue IV ABX, pain mgmt and IVF. Keep leg elevated. Surgical intervention to be held until vascular work-up can be done BS control via hospitalist team <MARI Dyson - Last Filed: 04/15/20 11:27> . General Surgery Attending - Noel Lowry M.D. Patient was evaluated and discussed with Mr. Maldonado Byers PA-C. I confirm above findings and plan as documented. Pt will need further vascular workup and determination of arterial inflow. No need for emergent surgery over this weekend. <Rosa Lowry MD - Last Filed: 04/15/20 14:28> Procedures Date of Service Date of Service: 04/15/20 <Rosa Lowry MD - Last Filed: 04/15/20 14:28>
[2020-04-15 12:22] LABS: Glucose, Whole Blood 167 mg/dL (60-115)
--- NOTE | 2020-04-15 13:18 | P.CONNP_ITS ---
History of Present Illness Reason for Consult Consult date: 04/15/20 Chief Complaint Chief complaint: KRYSTYNA Review of Systems Review of Systems Yes all other systems are reviewed and are negative Musculoskeletal: Reports back pain Reports Abnormal speech present [facility] Past Medical History Medical History Blind Diabetes Social History Social History Household Members: None Housing: Condominium Do you presently have visiting nurse or other home services: No Alcohol intake: never Smoking Status: Former smoker Use of substances other than those prescribed or required for medical reasons: No Currently Displaying Signs/Symptoms of Drug Intoxication Withdrawal: No Have you been hit, kicked, punched, or otherwise hurt by someone within the past year? If so, by whom?: No Do you feel safe in your current relationship?: No Current Relationship Is there a partner from a previous relationship who is making you feel unsafe now?: No Are you made to feel afraid or neglected: No Advance Directives: No Do you have thoughts of harming others: None Do you have a plan to hurt others: No Plan Recently lost weight without trying: Yes Meds Allergies Allergy/AdvReac Type Severity Reaction Status Date / Time No Known Allergies Allergy Verified 04/14/20 20:37 [No Known Allergies*] Active Medications: Current Medications Generic Name Dose Route Start Last Admin Trade Name Freq PRN Reason Stop Dose Admin Acetaminophen 650 mg 04/14/20 23:06 Acetaminophen 325 Mg Tablet PO Q6H PRN Pain, Mild (Pain Scale 1-3) Aspirin 81 mg 04/15/20 09:00 04/15/20 09:12 Aspirin 81 Mg Tab.Chew PO 81 mg DAILY RAUL Administration Atropine Sulfate 1 drop 04/15/20 09:00 04/15/20 09:13 Atropine Sulfate 1 % Ophth Jacki 2 Ml Bottle EYE-LEFT 1 drop TID [facility]UL Administration Docusate Sodium 100 mg 04/15/20 09:00 04/15/20 09:12 Docusate Sodium 100 Mg Capsule PO 100 mg BID [facility]UL Administration Glyburide 5 mg 04/15/20 08:00 04/15/20 09:12 Glyburide 5 Mg Tablet PO 5 mg BIDWM RAUL Administration Heparin Sodium (Porcine) 5,000 unit 04/14/20 23:15 04/15/20 09:11 Heparin Sodium,Porcine 5,000 Unit/Ml Vial SUBCUT 5,000 unit BID [facility] Administration Piperacillin Sod/Tazobactam 50 mls @ 100 mls/hr 04/15/20 00:00 04/15/20 10:27 Sod 2.25 gm/ Sodium Chloride IV Infused Q8H [facility] Infusion Sodium Chloride 1,000 mls @ 100 mls/hr 04/14/20 23:15 04/15/20 10:45 IVCONT Not Given .Q10H [facility] Insulin Human Lispro 0 unit 04/15/20 07:30 04/15/20 12:41 Insulin Lispro 100 Unit/Ml 3 Ml Vial SUBCUT Not Given QIDACHS [facility] Protocol Lidocaine 2 patch 04/15/20 09:15 04/15/20 10:42 Lidocaine 4 % Patch Adh..Patch TRANSDERMA 2 patch DAILY [facility] Administration Protocol Oxycodone HCl 2.5 mg 04/15/20 02:39 04/15/20 03:15 Oxycodone Hcl Immed Release 5 Mg Tablet PO 2.5 mg Q6H PRN Administration [facility] Consult 1 each 04/14/20 22:58 Consult Rx Perform Med Rec MISCELLANE ONCE PRN Consult order Pharmacy Consult 1 each 04/14/20 23:02 Consult Rx Vancomycin Dosing MISCELLANE DAILY PRN Consult order Prednisolone Acetate 1 drop 04/15/20 09:00 04/15/20 09:14 Prednisolone Acetate 1 % Oph Susp 5 Ml Drpbtl EYE-LEFT 1 drop DAILY [facility] Administration Senna 17.2 mg 04/14/20 23:06 Sennosides 8.6 Mg Tablet PO BEDTIME PRN Constipation Sodium Chloride 3 ml 04/15/20 00:00 04/15/20 09:11 0.9 % Sodium Chloride Flush 3 Ml Syringe IVFLUSH 3 ml QSHIFT [facility] Administration Timolol Maleate 1 drop 04/15/20 09:00 04/15/20 10:07 Timolol Maleate Xe 0.25 % Gel 5 Ml Drbtl EYE-RIGHT Not Given DAILY [facility] Home Medications Medication Instructions Recorded Confirmed Last Taken Type aspirin 81 mg PO DAILY 04/15/20 04/15/20 Unknown History atropine 1 drp BID 04/15/20 04/15/20 Unknown History glyburide 1 tab PO BID 04/15/20 04/15/20 Unknown History prednisolone acetate 1 drp DAILY 04/15/20 04/15/20 Unknown History timolol maleate 1 drp OPHTHALMIC-RIGHT DAILY 04/15/20 04/15/20 Unknown History Physical Exam Vital Signs: Last Vital Signs Temp 100 F 04/15/20 12:00 Pulse 87 04/15/20 12:00 Resp 18 04/15/20 12:00 BP 150/67 H 04/15/20 12:00 Pulse Ox 94 04/15/20 12:00 Body Mass Index 32.3 Const General: cooperative, no acute distress and awake Orientation/consciousness: oriented to person and oriented to place Limitations: no limitations HENMT Head: Yes normal to inspection, Yes normocephalic and Yes atraumatic Ears: external ears normal General nose exam: Normal external nose present Face and sinus: Yes normal facial exam Mouth: Normal oral and palatal mucosa present Throat: Yes posterior oropharynx normal Eyes Periorbital: periorbital findings normal Eyelids: Yes eyelids normal Conjunctivae: conjunctivae normal Sclerae: sclerae normal Corneas: corneas normal Pupils: Equal, round and reactive pupils present Neck Neck: Yes full ROM, Yes no lymphadenopathy, Yes no meningeal signs, Yes trachea midline, Yes supple and Yes no JVD Chest Chest palpation & inspection: normal inspection of the chest and normal palpation of entire chest wall Resp Effort & Inspection: normal respiratory effort and able to speak in complete sentences Auscultation: clear to auscultation bilaterally Cardio Rate: regular rate and tachycardic Rhythm: regular rhythm Heart sounds: S1 normal heart sound present, S2 normal heart sound present and no murmurs Peripheral pulses: other (Unable to plapate DP, PT bilaterally) GI Inspection: Yes normal to inspection Palpation (GI): Soft to palpation, nontender, no guarding, not rigid and No hepatosplenomegaly present General: Yes no CVA tenderness Back/Spine/Pelvis Back: no CVA tenderness Cervical Spine: normal cervical lordosis Thoracic/Lumbar Spine: thoracic and lumbar spine normal to inspection and paraspinal muscle tenderness bilaterally in the mid lumbar and in the lower lumbar Skin Lesions: no lesions Rashes: other (Right great toe infection) Wounds: no wounds Neuro General: oriented to person, oriented to place and no meningeal signs Cranial nerves: Yes CN's II-XII intact bilaterally and Yes Equal, round and reactive pupils present Cognition (Neuro): normal cognition Speech: Abnormal speech present Motor exam (neuro): 5/5 motor strength present throughout Psych Appearance: well kempt Mental Status: mental status grossly normal Speech and movement: Normal speech and movement present Affect: normal affect Attitude: cooperative Thought process: Normal thought process present Thought content: Normal thought content present Results Lab Results Result Diagrams: 04/15/20 06:03 04/15/20 06:03 Lab results: Chemistry 04/14/20 04/14/20 04/15/20 21:49 23:29 06:03 Sodium 137 140 Potassium 6.0 H* 5.3 H 5.4 H Carbon Dioxide 21 L 21 L BUN 48 H 43 H Creatinine 3.18 H 2.65 H Calcium 8.3 L 7.8 L D Hematology 04/14/20 04/15/20 21:49 06:03 WBC 9.9 8.6 Hgb 8.8 L 7.8 L Plt Count 352 341 Urinalysis 04/14/20 23:03 Urine Color YELLOW Urine Appearance CLOUDY Urine pH 6.0 Ur Specific [place] 1.020 Urine Protein 2+ H Urine Glucose (UA) 100 H Urine Ketones NEG Urine Blood 2+ H Urine Nitrite POS H Ur Leukocyte Esterase 2+ H Urine RBC 1-4 Urine WBC TNTC H Ur Squamous Epith Cells 1+ Assessment and Plan (1) Diabetic foot infection: Status: Acute 75-year-old female with a past medical history of hypertension, hyperlipidemia, diabetes, legally blind, lives alone presented to the hospital with a chief complaint of right lower extremity pain. # Diabetic foot infection/? 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 #Hyperkalemia. -improved with Kayexalate continue gentle fluids will follow as re establish OP Procedures Date of Service Date of Service: 04/15/20
--- NOTE | 2020-04-15 13:36 | W.PM.IDCN ---
History of Present Illness Data of Consult Service Date: 04/15/20 Requesting physician: Olivier Root Primary Care Provider: Unknown Physician HPI Reason for consult: osteomyelitis right great toe She presents to hospital with pain 7/10 down back and involving right great toe. She has no fever or chills She has blindness and cannot see well down to toe area She has no MRSA mentioned Review of Systems Review of Systems: Yes all other systems are reviewed and are negative PMFSH Past Medical History Medical History Blind Diabetes Family History Family history: reviewed and not pertinent Social History Social History Household Members: None Housing: Condominium Do you presently have visiting nurse or other home services: No Alcohol intake: never Smoking Status: Former smoker Use of substances other than those prescribed or required for medical reasons: No Currently Displaying Signs/Symptoms of Drug Intoxication Withdrawal: No Have you been hit, kicked, punched, or otherwise hurt by someone within the past year? If so, by whom?: No Do you feel safe in your current relationship?: No Current Relationship Is there a partner from a previous relationship who is making you feel unsafe now?: No Are you made to feel afraid or neglected: No Advance Directives: No Do you have thoughts of harming others: None Do you have a plan to hurt others: No Plan Recently lost weight without trying: Yes Meds Allergies Allergy/AdvReac Type Severity Reaction Status Date / Time No Known Allergies Allergy Verified 04/14/20 20:37 [No Known Allergies*] Active Medications: Current Medications Generic Name Dose Route Start Last Admin Trade Name Freq PRN Reason Stop Dose Admin Acetaminophen 650 mg 04/14/20 23:06 Acetaminophen 325 Mg Tablet PO Q6H PRN Pain, Mild (Pain Scale 1-3) Aspirin 81 mg 04/15/20 09:00 04/15/20 09:12 Aspirin 81 Mg Tab.Chew PO 81 mg DAILY [facility] Administration Atropine Sulfate 1 drop 04/15/20 09:00 04/15/20 09:13 Atropine Sulfate 1 % Ophth Jacki 2 Ml Bottle EYE-LEFT 1 drop TID [facility] Administration Docusate Sodium 100 mg 04/15/20 09:00 04/15/20 09:12 Docusate Sodium 100 Mg Capsule PO 100 mg BID [facility] Administration Glyburide 5 mg 04/15/20 08:00 04/15/20 09:12 Glyburide 5 Mg Tablet PO 5 mg BIDWM [facility] Administration Heparin Sodium (Porcine) 5,000 unit 04/14/20 23:15 04/15/20 09:11 Heparin Sodium,Porcine 5,000 Unit/Ml Vial SUBCUT 5,000 unit BID [facility] Administration Piperacillin Sod/Tazobactam 50 mls @ 100 mls/hr 04/15/20 00:00 04/15/20 10:27 Sod 2.25 gm/ Sodium Chloride IV Infused Q8H [facility] Infusion Sodium Chloride 1,000 mls @ 100 mls/hr 04/14/20 23:15 04/15/20 10:45 IVCONT Not Given .Q10H [facility] Insulin Human Lispro 0 unit 04/15/20 07:30 04/15/20 12:41 Insulin Lispro 100 Unit/Ml 3 Ml Vial SUBCUT Not Given QIDACHS [facility] Protocol Lidocaine 2 patch 04/15/20 09:15 04/15/20 10:42 Lidocaine 4 % Patch Adh..Patch TRANSDERMA 2 patch DAILY [facility] Administration Protocol Oxycodone HCl 2.5 mg 04/15/20 02:39 04/15/20 03:15 Oxycodone Hcl Immed Release 5 Mg Tablet PO 2.5 mg Q6H PRN Administration [facility] Consult 1 each 04/14/20 22:58 Consult Rx Perform Med Rec MISCELLANE ONCE PRN Consult order Pharmacy Consult 1 each 04/14/20 23:02 Consult Rx Vancomycin Dosing MISCELLANE DAILY PRN Consult order Prednisolone Acetate 1 drop 04/15/20 09:00 04/15/20 09:14 Prednisolone Acetate 1 % Oph Susp 5 Ml Drpbtl EYE-LEFT 1 drop DAILY [facility] Administration Senna 17.2 mg 04/14/20 23:06 Sennosides 8.6 Mg Tablet PO BEDTIME PRN Constipation Sodium Chloride 3 ml 04/15/20 00:00 04/15/20 09:11 0.9 % Sodium Chloride Flush 3 Ml Syringe IVFLUSH 3 ml QSHIFT [facility] Administration Timolol Maleate 1 drop 04/15/20 09:00 04/15/20 10:07 Timolol Maleate Xe 0.25 % Gel 5 Ml Drbtl EYE-RIGHT Not Given DAILY [facility] Home Medications Medication Instructions Recorded Confirmed Last Taken Type aspirin 81 mg PO DAILY 04/15/20 04/15/20 Unknown History atropine 1 drp BID 04/15/20 04/15/20 Unknown History glyburide 1 tab PO BID 04/15/20 04/15/20 Unknown History prednisolone acetate 1 drp DAILY 04/15/20 04/15/20 Unknown History timolol maleate 1 drp OPHTHALMIC-RIGHT DAILY 04/15/20 04/15/20 Unknown History Physical Exam Vital Signs: Vital Signs: Last Vital Signs Temp 100 F 04/15/20 12:00 Pulse 87 04/15/20 12:00 Resp 18 04/15/20 12:00 BP 150/67 H 04/15/20 12:00 Pulse Ox 94 04/15/20 12:00 Body Mass Index 32.3 Const: General: cooperative HENMT: Head: Yes normal to inspection Mouth: Normal oral and palatal mucosa present Eyes: General: appearance normal, both eyes and all related structures Resp: Effort & Inspection: normal respiratory effort Cardio: Rate: regular rate Rhythm: regular rhythm GI: Palpation (GI): Soft to palpation and nontender Skin: General skin exam: no rashes or lesions noted Extrem: Other: great toe black tip,mild proximal cellulitis Results Labs CBC & Chem 7: 04/15/20 06:03 04/15/20 06:03 Labs: Short CBC 04/14/20 04/15/20 Range/Units 21:49 06:03 WBC 9.9 8.6 (4.8-10.8) X10*3/uL Hgb 8.8 L 7.8 L (12.0-16.0) g/dl Hct 28.6 L 25.5 L (37-47) % Plt Count 352 341 (160-400) X10*3/uL BMP 04/14/20 04/14/20 04/15/20 21:49 23:29 06:03 Sodium 137 140 Potassium 6.0 H* 5.3 H 5.4 H Chloride 106 111 H Carbon Dioxide 21 L 21 L BUN 48 H 43 H Creatinine 3.18 H 2.65 H Calcium 8.3 L 7.8 L D Liver Function 04/14/20 Range/Units 21:49 Total Bilirubin 0.3 (0.0-1.0) mg/dL AST 18 (5-31) U/L ALT < 6 (0-31) U/L Alkaline Phosphatase 78 (39-117) U/L Albumin 3.5 (3.5-5.0) g/dL Urine 04/14/20 Range/Units 23:03 Urine Color YELLOW Urine Appearance CLOUDY Urine pH 6.0 (5.0-8.0) Ur Specific [place] 1.020 (1.005-1.025) Urine Protein 2+ H (NEG-TRACE) MG/DL Urine Glucose (UA) 100 H (NEG) MG/DL Assessment and Plan (1) Diabetic foot infection: Status: Acute (2) Osteomyelitis of great toe of right foot: Problem details: 75 yo female w/ hx of DM presents with 1-2 weeks of worsening Right foot pain. Evidence of osteomyelitis via XR.Absent peripheral pulses. Status: Acute Agree Piperacillin/Tazobactam May hold Vancomycin for now as no MRSA and has renal dysfunction Vascular or Surgery evaluation Either amputation area or 6 weeks IV which would not be curative
[2020-04-15] MEDS: Acetaminophen 325 MG TABLET 650 MG PO ×2 (14:03→22:53)
[2020-04-15 16:57] LABS: Glucose, Whole Blood 177 mg/dL (60-115)
[2020-04-15 20:54] LABS: Glucose, Whole Blood 118 mg/dL (60-115)
[2020-04-16] MEDS: Piperacillin Sodium/Tazobactam 2.25 GM in 0.9 % Sodium Chloride 50 ML IV ×4 (00:28→23:49)
[2020-04-16] MEDS: Sodium Chloride 0.45 % 1,000 ML 100 ML IVCONT ×2 (01:09→14:29)
[2020-04-16 04:00] VITALS: BP 168/64; PULSE 91; RESP 18; TEMP 37.2; O2SAT 94
[2020-04-16 07:49] VITALS: BP 163/74; PULSE 83; RESP 20; TEMP 37.3; O2SAT 98
[2020-04-16 07:52] LABS: Glucose, Whole Blood 132 mg/dL (60-115)
[2020-04-16] MEDS: Docusate Sodium 100 MG CAPSULE PO ×2 (07:54→21:07)
[2020-04-16] MEDS: Aspirin 81 MG TAB.CHEW PO (07:54)
[2020-04-16] MEDS: glyBURIDE 5 MG TABLET PO ×2 (07:54→16:19)
[2020-04-16] MEDS: Heparin Sodium,Porcine 5,000 UNIT/ML VIAL 5000 UNIT SUBCUT ×2 (07:55→21:07)
[2020-04-16] MEDS: Atropine Sulfate 1 % Ophth Sol 2 ML BOTTLE 1 DROP EYE-LEFT ×3 (07:56→21:21)
[2020-04-16] MEDS: prednisoLONE Acetate 1 % Oph Susp 5 ML DRPBTL 1 DROP EYE-LEFT (07:56)
[2020-04-16] MEDS: Lidocaine 4 % Patch ADH..PATCH 2 PATCH TRANSDERMA (07:57)
[2020-04-16 08:17] LABS: MANUAL DIFF FLAG NO
[2020-04-16 08:25] LABS: Basophils Absolute Auto 0.1 X10*3/uL (0.0-0.2); Basophils Percent Auto 0.5 % (0-2); Eosinophils Absolute Auto 0.4 X10*3/uL (0.0-0.4); Eosinophils Percent Auto 3.8 % (0-4); Hematocrit 25.1 % (37-47); Hemoglobin 7.7 g/dl (12.0-16.0); Imm Gran Abs Auto 0.03 X10*3/uL (0.00-0.03); Imm Gran Pct Auto 0.3 % (0.0-0.4); Lymphocytes Absolute Auto 2.3 X10*3/uL (1.2-4.9); Lymphocytes Percent Auto 24.1 % (20-40); Mean Corpuscular HGB Conc 30.7 g/dl (31.0-35.0); Mean Corpuscular Hemoglobin 27.7 pg (27.0-33.0); Mean Corpuscular Volume 90.3 fL (80-98); Mean Platelet Volume 9.5 fL (9.4-12.3); Monocytes Absolute Auto 0.9 X10*3/uL (0.1-1.2); Neutrophils Percent Auto 62.3 % (45-73); Platelet Count 316 X10*3/uL (160-400); Red Blood Count 2.78 X10*6/uL (4.20-5.50); Red Cell Distribution Width 12.3 % (11.0-16.0); White Blood Count 9.6 X10*3/uL (4.8-10.8)
[2020-04-16 08:45] LABS: Anion Gap 13 (12-20); Blood Urea Nitrogen 37 mg/dL (9-16); Calcium 7.4 mg/dL (8.4-10.2); Carbon Dioxide 21 mmol/L (22-29); Chloride 110 mmol/L (96-108); Creatinine Clr Calc Pharmacy 21.7; Estimated Glomerular Filt Rate 19; Glucose Random 132 mg/dL (60-115); Potassium 4.5 mmol/L (3.3-5.1); Sodium 139 mmol/L (135-145)
--- NOTE | 2020-04-16 08:59 | PM.PNGS ---
Subjective Subjective Date of Service: 04/16/20 <MARI Dyson - Last Filed: 04/16/20 09:10> 04/16/20 <Rosa Lowry MD - Last Filed: 04/16/20 11:08> Patient reports: no new complaints and pain is less <MARI Dyson - Last Filed: 04/16/20 09:10> Interval history: She reports that the foot is feeling better. Denies new fevers, chills or N/V. No new complaints <MARI Dyson - Last Filed: 04/16/20 09:10> Physical Exam Vital Signs: Vital Signs: Last Vital Signs Temp 99.1 F 04/16/20 07:49 Pulse 83 04/16/20 07:49 Resp 20 04/16/20 07:49 BP 163/74 H 04/16/20 07:49 Pulse Ox 98 04/16/20 07:49 Body Mass Index 32.3 <MARI Dyosn - Last Filed: 04/16/20 09:10> Const: General: no acute distress <MARI Dyson - Last Filed: 04/16/20 09:10> Orientation/consciousness: oriented to person and oriented to place <MARI Dyson Last Filed: 04/16/20 09:10> Skin: Other: Improving erythema of the Right foot and less tenderness to palpation. No drainage. <MARI Dyson - Last Filed: 04/16/20 09:10> Neuro: General: oriented to person and oriented to place <MARI Dyson - Last Filed: 04/16/20 09:10> Progress Note: A&P Assessment and plan (1) Osteomyelitis of great toe of right foot: Problem details: 75 yo female w/ hx of DM presents with 1-2 weeks of worsening Right foot pain. Evidence of osteomyelitis via XR. Absent peripheral pulses. CT showed focal gas collection of the Right great toe but no drainable abscess. There is less erythema present this AM. <MARI Dyson Last Filed: 04/16/20 09:10> Status: Acute <MARI Dyson Last Filed: 04/16/20 09:10> Assessment and Plan: Dr Blood from Vascular will evaluate the patient tomorrow Continue pain mgmt and ABX Surgical intervention will likely be needed to remove the necrotic tissue and bone. This will be determined following vascular evaluation. <MARI Dyson - Last Filed: 04/16/20 09:10> . General Surgery Attending - Noel Lowry M.D. Patient was evaluated and examined at the bedside with Mr. Maldonado Byers PA-C. I confirm above findings and plan as documented. Again, the Right foot has some erythema in great toe with black toe tip c/w clinical dry gangrene, c/w CT finding or some gas at the tip of toe without drainable abscess. This does not require emergent amputation/surgery. Best approach is for Vascular Surgery to evaluate arterial circulation and formulate definitive surgical plan as appropriate. We have been told by [facility] [place] that Vascular Surg has been notified and will see pt tomorrow. Pls call us if further needs arise, or if there is any acute changes before tomorrow. <Rosa Lowry MD - Last Filed: 04/16/20 11:08> Fall Risk Details Current Medications: Current Medications Generic Name Dose Route Start Last Admin Trade Name Freq PRN Reason Stop Dose Admin Acetaminophen 650 mg 04/14/20 23:06 04/15/20 22:53 Acetaminophen 325 Mg Tablet PO 650 mg Q6H PRN Administration Pain, Mild (Pain Scale 1-3) Aspirin 81 mg 04/15/20 09:00 04/16/20 07:54 Aspirin 81 Mg Tab.Chew PO 81 mg DAILY [facility] Administration Atropine Sulfate 1 drop 04/15/20 09:00 04/16/20 07:56 Atropine Sulfate 1 % Ophth Jacki 2 Ml Bottle EYE-LEFT 1 drop TID [facility] Administration Docusate Sodium 100 mg 04/15/20 09:00 04/16/20 07:54 Docusate Sodium 100 Mg Capsule PO 100 mg BID [facility] Administration Glyburide 5 mg 04/15/20 08:00 04/16/20 07:54 Glyburide 5 Mg Tablet PO 5 mg BIDWM [facility] Administration Heparin Sodium (Porcine) 5,000 unit 04/14/20 23:15 04/16/20 07:55 Heparin Sodium,Porcine 5,000 Unit/Ml Vial SUBCUT 5,000 unit BID [facility] Administration Piperacillin Sod/Tazobactam 50 mls @ 100 mls/hr 04/15/20 00:00 04/16/20 08:29 Sod 2.25 gm/ Sodium Chloride IV Infused Q8H [facility] Infusion Sodium Chloride 1,000 mls @ 100 mls/hr 04/14/20 23:15 04/16/20 01:09 IVCONT 100 mls/hr .Q10H [facility] Administration Insulin Human Lispro 0 unit 04/15/20 07:30 04/16/20 08:03 Insulin Lispro 100 Unit/Ml 3 Ml Vial SUBCUT Not Given QIDACHS [facility] Protocol Lidocaine 2 patch 04/15/20 09:15 04/16/20 07:57 Lidocaine 4 % Patch Adh..Patch TRANSDERMA 2 patch DAILY [facility] Administration Protocol Oxycodone HCl 2.5 mg 04/15/20 02:39 04/15/20 03:15 Oxycodone Hcl Immed Release 5 Mg Tablet PO 2.5 mg Q6H PRN Administration [facility] Consult 1 each 04/14/20 23:02 Consult Rx Vancomycin Dosing MISCELLANE DAILY PRN Consult order Prednisolone Acetate 1 drop 04/15/20 09:00 04/16/20 07:56 Prednisolone Acetate 1 % Oph Susp 5 Ml Drpbtl EYE-LEFT 1 drop DAILY [facility] Administration Senna 17.2 mg 04/14/20 23:06 Sennosides 8.6 Mg Tablet PO BEDTIME PRN Constipation Sodium Chloride 3 ml 04/15/20 00:00 04/16/20 08:30 0.9 % Sodium Chloride Flush 3 Ml Syringe IVFLUSH Not Given QSHIFT [facility] Timolol Maleate 1 drop 04/15/20 09:00 04/16/20 07:58 Timolol Maleate Xe 0.25 % Gel 5 Ml Drbtl EYE-RIGHT Not Given DAILY [facility] <MARI Dyson - Last Filed: 04/16/20 09:10> Time Spent With Patient Time: Total time spent is greater than 50% in coordination of care (as documented) at patient's floor/unit and/or counseling patient: <MARI Dyson - Last Filed: 04/16/20 09:10> Time with patient: 15 - 24 minutes <Rosa Lowry MD - Last Filed: 04/16/20 11:08> Procedures Date of Service Date of Service: 04/16/20 <Rosa Lowry MD - Last Filed: 04/16/20 11:08>
--- NOTE | 2020-04-16 09:35 | P.PNIM_ITS ---
Subjective Subjective Date of Service: 04/16/20 Interval History: Follow up for UTI and right great toe necrosis. She is feeling better today. She is having some exacerbation of back pain. Physical Exam Vital Signs: Vital Signs: Last Vital Signs Temp 99.1 F 04/16/20 07:49 Pulse 83 04/16/20 07:49 Resp 20 04/16/20 07:49 BP 163/74 H 04/16/20 07:49 Pulse Ox 98 04/16/20 07:49 Body Mass Index 32.3 Appearing in no acute distress lung sounds are clear to auscultation heart regular rate rhythm, clear S1, S2 positive bowel sounds, abdomen is soft, nontender neuro patient is alert x3, no focal deficits Skin. Dry feet bilaterally, Right great toe necrosis with eschar Objective Data Current Medications Generic Name Dose Route Start Last Admin Trade Name Freq PRN Reason Stop Dose Admin Acetaminophen 650 mg 04/14/20 23:06 04/15/20 22:53 Acetaminophen 325 Mg Tablet PO 650 mg Q6H PRN Administration Pain, Mild (Pain Scale 1-3) Aspirin 81 mg 04/15/20 09:00 04/16/20 07:54 Aspirin 81 Mg Tab.Chew PO 81 mg DAILY [facility] Administration Atropine Sulfate 1 drop 04/15/20 09:00 04/16/20 07:56 Atropine Sulfate 1 % Ophth Jacki 2 Ml Bottle EYE-LEFT 1 drop TID [facility]UL Administration Docusate Sodium 100 mg 04/15/20 09:00 04/16/20 07:54 Docusate Sodium 100 Mg Capsule PO 100 mg BID [facility] Administration Glyburide 5 mg 04/15/20 08:00 04/16/20 07:54 Glyburide 5 Mg Tablet PO 5 mg BIDWM [facility] Administration Heparin Sodium (Porcine) 5,000 unit 04/14/20 23:15 04/16/20 07:55 Heparin Sodium,Porcine 5,000 Unit/Ml Vial SUBCUT 5,000 unit BID [facility] Administration Piperacillin Sod/Tazobactam 50 mls @ 100 mls/hr 04/15/20 00:00 04/16/20 08:29 Sod 2.25 gm/ Sodium Chloride IV Infused Q8H [facility] Infusion Sodium Chloride 1,000 mls @ 100 mls/hr 04/14/20 23:15 04/16/20 01:09 IVCONT 100 mls/hr .Q10H [facility] Administration Insulin Human Lispro 0 unit 04/15/20 07:30 04/16/20 08:03 Insulin Lispro 100 Unit/Ml 3 Ml Vial SUBCUT Not Given QIDACHS [facility] Protocol Lidocaine 2 patch 04/15/20 09:15 04/16/20 07:57 Lidocaine 4 % Patch Adh..Patch TRANSDERMA 2 patch DAILY [facility] Administration Protocol Oxycodone HCl 2.5 mg 04/15/20 02:39 04/15/20 03:15 Oxycodone Hcl Immed Release 5 Mg Tablet PO 2.5 mg Q6H PRN Administration [facility] Consult 1 each 04/14/20 23:02 Consult Rx Vancomycin Dosing MISCELLANE DAILY PRN Consult order Prednisolone Acetate 1 drop 04/15/20 09:00 04/16/20 07:56 Prednisolone Acetate 1 % Oph Susp 5 Ml Drpbtl EYE-LEFT 1 drop DAILY [facility] Administration Senna 17.2 mg 04/14/20 23:06 Sennosides 8.6 Mg Tablet PO BEDTIME PRN Constipation Sodium Chloride 3 ml 04/15/20 00:00 04/16/20 08:30 0.9 % Sodium Chloride Flush 3 Ml Syringe IVFLUSH Not Given QSHIFT [facility] Timolol Maleate 1 drop 04/15/20 09:00 04/16/20 07:58 Timolol Maleate Xe 0.25 % Gel 5 Ml Drbtl EYE-RIGHT Not Given DAILY [facility] Labs CBC & Chem 7: 04/16/20 07:55 04/16/20 07:55 Microbiology Microbiology Results: Microbiology 04/14/20 Unknown Urine clean catch - Clean Catch Midstream Urine Culture - Preliminary Gram negative roderick 04/14/20 21:49 Blood - Venous Blood Culture - Preliminary No growth after 24 hours. 04/14/20 21:49 Blood - Venous Blood Culture - Preliminary No growth after 24 hours. Assessment and Plan (1) Osteomyelitis of great toe of right foot: Problem details: 75 yo female w/ hx of DM presents with 1-2 weeks of worsening Right foot pain. Evidence of osteomyelitis via XR. Absent peripheral pulses. CT showed focal gas collection of the Right great toe but no drainable abscess. There is less erythema present this AM. Status: Acute Assessment and Plan: 75-year-old female with a past medical history of hypertension, hyperlipidemia, diabetes, legally blind, lives alone presented to the hospital with a chief complaint of right lower extremity pain. # Diabetic/vascular foot infection/ gas noted on CT. Foot pain and redness decreasing, seen and examined by general surgery with recommendation for vascular surgery consultation. -vascular surgery consultation, may require amputation. -continue Zosyn -pain management # UTI -Zosyn -Follow urine culture # KRYSTYNA on CKD. Diabetic nephropathy -creatinine trending down -nephrology following -avoid nephrotoxins. #Hyperkalemia. Resolved with kayexalate -trend. #Back pain. Chronic -add Lidocaine patch, continue Oxycodone. #Diabetes -insulin sliding scale, ADA diet # Legally Blind -Home eye drops. Attending: Dr. Root
[2020-04-16 11:35] VITALS: BP 165/74; PULSE 86; RESP 20; TEMP 36.6; O2SAT 97
[2020-04-16 11:44] LABS: Glucose, Whole Blood 202 mg/dL (60-115)
--- NOTE | 2020-04-16 12:17 | P.PNNP_ITS ---
Subjective Subjective Date of Service: 04/16/20 Interval history: Follow up for UTI and right great toe necrosis. She is feeling better today. She is having some exacerbation of back pain. Physical Exam Vital Signs: Vital Signs: Last Vital Signs Temp 97.9 F 04/16/20 11:35 Pulse 86 04/16/20 11:35 Resp 20 04/16/20 11:35 BP 165/74 H 04/16/20 11:35 Pulse Ox 97 04/16/20 11:35 Body Mass Index 32.3 Const: General: cooperative, no acute distress and awake [place] ation/consciousness: oriented to person and oriented to place Limitations: no limitations HENMT: Head: Yes normal to inspection, Yes normocephalic and Yes atraumatic Ears: external ears normal General nose exam: Normal external nose present Face and sinus: Yes normal facial exam Mouth: Normal oral and palatal mucosa present Throat: Yes posterior oropharynx normal Eyes: General: appearance normal, both eyes and all related structures Periorbital: periorbital findings normal Eyelids: Yes eyelids normal Conjunctivae: conjunctivae normal Sclerae: sclerae normal Corneas: corneas normal Pupils: Equal, round and reactive pupils present Neck: Neck: Yes full ROM, Yes no lymphadenopathy, Yes no meningeal signs, Yes trachea midline, Yes supple and Yes no JVD Chest: Chest palpation & inspection: normal inspection of the chest and normal palpation of entire chest wall Resp: Effort & Inspection: normal respiratory effort and able to speak in complete sentences Auscultation: clear to auscultation bilaterally Cardio: Rate: regular rate and tachycardic Rhythm: regular rhythm Heart sounds: S1 normal heart sound present, S2 normal heart sound present and no murmurs Peripheral pulses: other (Unable to plapate DP, PT bilaterally) GI: Inspection: Yes normal to inspection Palpation (GI): Soft to palpation, nontender, no guarding, not rigid and No hepatosplenomegaly present : General: Yes no CVA tenderness Back/Spine/Pelvis: Back: no CVA tenderness Cervical Spine: normal cervical lordosis Thoracic/Lumbar Spine: thoracic and lumbar spine normal to in spection and paraspinal muscle tenderness bilaterally in the mid lumbar and in the lower lumbar Skin: Other: Improving erythema of the Right foot and less tenderness to palpation. No drainage. General skin exam: no rashes or lesions noted Lesions: no lesions Rashes: other (Right great toe infection) Wounds: no wounds Neuro: General: oriented to person, oriented to place and no meningeal signs Cranial nerves: Yes CN's II-XII intact bilaterally and Yes Equal, round and reactive pupils present Cognition (Neuro): normal cognition Speech: Abnormal speech present Motor exam (neuro): 5/5 motor strength present throughout Extrem: Other: great toe black tip,mild proximal cellulitis Psych: Appearance: well kempt Mental Status: mental status grossly normal Speech and movement: Normal speech and movement present Affect: normal affect Attitude: cooperative Thought process: Normal thought process present Thought content: Normal thought content present Objective Data Labs CBC & Chem 7: 04/16/20 07:55 04/16/20 07:55 Labs: Laboratory Results - last 24 hr 04/15/20 04/15/20 04/15/20 12:17 16:48 20:46 WBC RBC Hgb Hct MCV MCH MCHC RDW Plt Count MPV Immature Gran % (Auto) Neut % (Auto) Lymph % (Auto) [place] % (Auto) Eos % (Auto) Baso % (Auto) Lymph # (Auto) [place] # (Auto) Eos # (Auto) Baso # (Auto) Abs Immat Gran (auto) Absolute Neuts (auto) Absolute Nucleated RBC Nucleated RBC % (auto) Sodium Potassium Chloride Carbon Dioxide Anion Gap BUN Creatinine Estim Creat Clear Calc Estimated GFR POC Glucose 167 H 177 H 118 H Random Glucose Calcium 04/16/20 04/16/20 04/16/20 07:45 07:55 07:55 WBC 9.6 RBC 2.78 L Hgb 7.7 L Hct 25.1 L MCV 90.3 MCH 27.7 MCHC 30.7 L RDW 12.3 Plt Count 316 MPV 9.5 Immature Gran % (Auto) 0.3 Neut % (Auto) 62.3 Lymph % (Auto) 24.1 [place] % (Auto) 9.0 Eos % (Auto) 3.8 Baso % (Auto) 0.5 Lymph # (Auto) 2.3 [place] # (Auto) 0.9 Eos # (Auto) 0.4 Baso # (Auto) 0.1 Abs Immat Gran (auto) 0.03 Absolute Neuts (auto) 6.0 Absolute Nucleated RBC 0.000 Nucleated RBC % (auto) 0.0 Sodium 139 Potassium 4.5 Chloride 110 H Carbon Dioxide 21 L Anion Gap 13 BUN 37 H Creatinine 2.50 H Estim Creat Clear Calc 21.7 Estimated GFR 19 POC Glucose 132 H Random Glucose 132 H Calcium 7.4 L 04/16/20 11:32 WBC RBC Hgb Hct MCV MCH MCHC RDW Plt Count MPV Immature Gran % (Auto) Neut % (Auto) Lymph % (Auto) [place] % (Auto) Eos % (Auto) Baso % (Auto) Lymph # (Auto) [place] # (Auto) Eos # (Auto) Baso # (Auto) Abs Immat Gran (auto) Absolute Neuts (auto) Absolute Nucleated RBC Nucleated RBC % (auto) Sodium Potassium Chloride Carbon Dioxide Anion Gap BUN Creatinine Estim Creat Clear Calc Estimated GFR POC Glucose 202 H Random Glucose Calcium Microbiology Microbiology Results: Microbiology 04/14/20 Unknown Urine clean catch - Clean Catch Midstream Urine Culture - Preliminary Gram negative roderick 04/14/20 21:49 Blood - Venous Blood Culture - Preliminary No growth after 24 hours. 04/14/20 21:49 Blood - Venous Blood Culture - Preliminary No growth after 24 hours. Assessment & Plan Assessment and plan (1) Osteomyelitis of great toe of right foot: Problem details: 75 yo female w/ hx of DM presents with 1-2 weeks of worsening Right foot pain. Evidence of osteomyelitis via XR. Absent peripheral pulses. CT showed focal gas collection of the Right great toe but no drainable abscess. There is less erythema present this AM. Status: Acute Assessment and Plan: . (2) Acute kidney injury: Problem details: resolving KRYSTYNA with stable lytes no new suggestions Status: Acute Time Spent With Patient Time: Total time spent is greater than 50% in coordination of care (as documented) at patient's floor/unit and/or counseling patient: Procedures Date of Service Date of Service: 04/16/20
[2020-04-16] MEDS: Acetaminophen 325 MG TABLET 650 MG PO ×2 (13:58→23:48)
[2020-04-16] MEDS: 0.9 % Sodium Chloride Flush 3 ML SYRINGE IVFLUSH ×2 (14:01→21:21)
--- NOTE | 2020-04-16 14:56 | MHC.CM.PN ---
PT REPORTS SHE LIVES ALONE AND IS INDEPENDENT WITH ALL CARE AND MOBILITY. PT REPORTS HER PCP IS AT [facility] IN [place]. PT DENIES HAVING ANY DME OR IN HOME SERVICES. PT REPORTS HER DAUGHTER IS HER HCP, COPY REQUESTED. IMM VERBALLY REVIEWED, PT IS LEGALLY BLIND. PT REPORTS UNDERSTANDING HER RIGHTS. PTS GOAL FOR DC IS HOME WITH NO SERVICES PTS DAUGHTER WILL TRANSPORT
[2020-04-16 15:35] VITALS: BP 130/60; PULSE 84; RESP 18; TEMP 36.9; O2SAT 95
[2020-04-16 16:07] LABS: Glucose, Whole Blood 131 mg/dL (60-115)
[2020-04-16 19:00] VITALS: BP 162/77; PULSE 86; RESP 20; TEMP 36.7; O2SAT 97
[2020-04-16 19:59] LABS: Glucose, Whole Blood 142 mg/dL (60-115)
[2020-04-16 23:26] VITALS: BP 184/82; PULSE 56; RESP 18; TEMP 37.4; O2SAT 96
[2020-04-17] VITALS (8 sets, daily range): BP systolic 154–178; BP diastolic 60–80; PULSE 79–98; RESP 16–20; TEMP 36–37.9; O2SAT 94–97; BMI 32.3
[2020-04-17] MEDS: Acetaminophen 325 MG TABLET 650 MG PO ×3 (06:08→21:03)
[2020-04-17 07:34] LABS: Glucose, Whole Blood 61 mg/dL (60-115)
[2020-04-17] MEDS: Docusate Sodium 100 MG CAPSULE PO (08:08)
[2020-04-17] MEDS: Lidocaine 4 % Patch ADH..PATCH 2 PATCH TRANSDERMA (08:08)
[2020-04-17] MEDS: Aspirin 81 MG TAB.CHEW PO (08:08)
[2020-04-17] MEDS: Piperacillin Sodium/Tazobactam 2.25 GM in 0.9 % Sodium Chloride 50 ML IV ×3 (08:08→23:32)
[2020-04-17] MEDS: Heparin Sodium,Porcine 5,000 UNIT/ML VIAL 5000 UNIT SUBCUT ×2 (08:08→20:58)
[2020-04-17] MEDS: prednisoLONE Acetate 1 % Oph Susp 5 ML DRPBTL 1 DROP EYE-LEFT (08:09)
[2020-04-17] MEDS: Atropine Sulfate 1 % Ophth Sol 2 ML BOTTLE 1 DROP EYE-LEFT ×3 (08:09→20:59)
[2020-04-17] MEDS: 0.9 % Sodium Chloride Flush 3 ML SYRINGE IVFLUSH ×2 (08:09→16:21)
--- NOTE | 2020-04-17 10:51 | MHC.CM.PN ---
Patient is on Iv Zosyn for osteomyelitis to right great toe. Waiting for vasc surg consult with ?of toe amp. Patient will need a PT eval to decide on discharge disposition. Patient lives alone and is legally blind. CM will continue to follow patient for discharge needs.
--- NOTE | 2020-04-17 11:21 | P.PNNP_ITS ---
Subjective Subjective Date of Service: 04/17/20 Interval history: Seen and examined. Events noted Physical Exam Vital Signs: Vital Signs: Last Vital Signs Temp 98.6 F 04/17/20 11:08 Pulse 86 04/17/20 11:08 Resp 18 04/17/20 11:08 BP 166/60 H 04/17/20 11:08 Pulse Ox 94 04/17/20 11:08 Body Mass Index 32.3 Const: General: cooperative, no acute distress and awake Orientation/consciousness: oriented to person and oriented to place Lara itations: no limitations HENMT: Head: Yes normal to inspection, Yes normocephalic and Yes atraumatic Ears: external ears normal General nose exam: Normal external nose present Face and sinus: Yes normal facial exam Mouth: Normal oral and palatal mucosa present Throat: Yes posterior oropharynx normal Eyes: General: appearance normal, both eyes and all related structures Periorbital: periorbital findings normal Eyelids: Yes eyelids normal Conjunctivae: conjunctivae normal Sclerae: sclerae normal Corneas: corneas normal Pupils: Equal, round and reactive pupils present Neck: Neck: Yes full ROM, Yes no lymphadenopathy, Yes no meningeal signs, Yes trachea midline, Yes supple and Yes no JVD Chest: Chest palpation & inspection: normal inspection of the chest and normal palpation of entire chest wall Resp: Effort & Inspection: normal respiratory effort and able to speak in complete sentences Auscultation: clear to auscultation bilaterally Cardio: Rate: regular rate and tachycardic Rhythm: regular rhythm Heart sounds: S1 normal heart sound present, S2 normal heart sound present and no murmurs Peripheral pulses: other (Unable to plapate DP, PT bilaterally) GI: Inspection: Yes normal to inspection Palpation (GI): Soft to palpation, nontender, no guarding, not rigid and No hepatosplenomegaly present : General: Yes no CVA tenderness Back/Spine/Pelvis: Back: no CVA tenderness Cervical Spine: normal cervical lordosis Thoracic/Lumbar Spine: thoracic and lumbar spine normal to inspection and paraspinal muscle tenderness bilaterally in the mid lumbar and in the lower lumbar Skin: Other: Improving erythema of the Right foot and less tenderness to palpation. No drainage. General skin exam: no rashes or lesions noted Lesions: no lesions Rashes: other (Right great toe infection) Wounds: no wounds Neuro: General: oriented to person, oriented to place and no meningeal signs Cranial nerves: Yes CN's II-XII intact bilaterally and Yes Equal, round and reactive pupils present Cognition (Neuro): normal cognition Speech: Abnormal speech present Motor exam (neuro): 5/5 motor strength present throughout Extrem: Other: great toe black tip,mild proximal cellulitis Psych: Appearance: well kempt Mental Status: mental status grossly normal Speech and movement: Normal speech and movement present Affect: normal affect Attitude: cooperative Thought process: Normal thought process present Thought content: Normal thought content present Objective Data Labs CBC & Chem 7: 04/16/20 07:55 04/16/20 07:55 Labs: Laboratory Results - last 24 hr 04/16/20 04/16/20 04/16/20 11:32 16:02 19:54 POC Glucose 202 H 131 H 142 H 04/17/20 07:26 POC Glucose 61 Microbiology Microbiology Results: Microbiology 04/14/20 Unknown Urine clean catch - Clean Catch Midstream Urine Culture - Final Klebsiella pneumoniae 04/14/20 21:49 Blood - Venous Blood Culture - Preliminary No growth after 48 hours. 04/14/20 21:49 Blood - Venous Blood Culture - Preliminary No growth after 48 hours. Assessment & Plan Assessment and plan (1) Osteomyelitis of great toe of right foot: Status: Acute Assessment and Plan: . (2) Acute kidney injury: Problem details: 1. KRYSTYNA: Scr decr with ongoing tx of infection/dehydration 2. CKD 3b: bsl SCr 2.0 range from ( 2018); most c/w DN but needs sero/urine studies to fully evaluate 3. Anemia: Feand/or epo def; need to r/o myeloma 4. MBD of CKD 5. Cellulitis/osteo 6. DM REC: sero/urine studies as ordered; avoid NToxins will follow bayron callejas; she wi;; need close renal f/u as outpt Status: Acute Time Spent With Patient Time: Total time spent is greater than 50% in coordination of care (as documented) at patient's floor/unit and/or counseling patient: Procedures Date of Service Date of Service: 04/17/20
[2020-04-17 11:38] LABS: Glucose, Whole Blood 129 mg/dL (60-115)
--- NOTE | 2020-04-17 12:04 | PM.CNGS ---
History of Present Illness Consult details Consult date: 04/17/20 Reason for consult: wound care (Nonhealing right great toe ulcer) Narrative: Very pleasant 75-year-old diabetic female presents for evaluation regarding nonhealing right great toe ulcer. It has been present for some time. According to the patient who is blind she reports that something had bitten her great toe. It had remained nonhealing. It has been going on for some time. She now presents to us for vascular evaluation. Of note at the time of admission she was noted to have acute kidney injury and was subsequently treated for that. Review of Systems Review of Systems: Yes all other systems are reviewed and are negative Constitutional: Constitutional: Reports no additional constitutional complaints ENT: Reports Normal hearing present Cardiovascular: Cardiovascular: Denies chest pain, Denies chest pain at rest, Denies chest pain with activity and Denies pedal edema Respiratory: Respiratory: Denies cough Gastrointestinal: Gastrointestinal: Denies abdominal pain Musculoskeletal: Musculoskeletal: Denies abnormal gait, Denies muscle cramps and Denies radiating pain into limb Integumentary/Breasts: Skin/Breast: Denies skin ulcer and Denies wounds Neurologic: Reports Normal hearing present and Denies abnormal gait Psychiatric: Psychiatric: Reports no additional psychiatric complaints PMFSH Past Medical History Medical History Blind Diabetes Family History Family history: reviewed and not pertinent Social History Social History Household Members: None Housing: Condominium Do you presently have visiting nurse or other home services: No Alcohol intake: never Smoking Status: Former smoker Use of substances other than those prescribed or required for medical reasons: No Currently Displaying Signs/Symptoms of Drug Intoxication Withdrawal: No Have you been hit, kicked, punched, or otherwise hurt by someone within the past year? If so, by whom?: No Do you feel safe in your current relationship?: No Current Relationship Is there a partner from a previous relationship who is making you feel unsafe now?: No Are you made to feel afraid or neglected: No Advance Directives: No Do you have thoughts of harming others: None Do you have a plan to hurt others: No Plan Recently lost weight without trying: Yes service: No Current occupational status: disabled Meds Allergies Allergy/AdvReac Type Severity Reaction Status Date / Time No Known Allergies Allergy Verified 04/14/20 20:37 [No Known Allergies*] Active Medications: Current Medications Generic Name Dose Route Start Last Admin Trade Name Steve PRN Reason Stop Dose Admin Acetaminophen 650 mg 04/14/20 23:06 04/17/20 06:08 Acetaminophen 325 Mg Tablet PO 650 mg Q6H PRN Administration Pain, Mild (Pain Scale 1-3) Aspirin 81 mg 04/15/20 09:00 04/17/20 08:08 Aspirin 81 Mg Tab.Chew PO 81 mg DAILY RAUL Administration Atropine Sulfate 1 drop 04/15/20 09:00 04/17/20 08:09 Atropine Sulfate 1 % Ophth Jacki 2 Ml Bottle EYE-LEFT 1 drop TID [facility] Administration Docusate Sodium 100 mg 04/15/20 09:00 04/17/20 08:08 Docusate Sodium 100 Mg Capsule PO 100 mg BID RAUL Administration Glyburide 5 mg 04/15/20 08:00 04/17/20 08:01 Glyburide 5 Mg Tablet PO Not Given BIDWM [facility] Heparin Sodium (Porcine) 5,000 unit 04/14/20 23:15 04/17/20 08:08 Heparin Sodium,Porcine 5,000 Unit/Ml Vial SUBCUT 5,000 unit BID RAUL Administration Piperacillin Sod/Tazobactam 50 mls @ 100 mls/hr 04/15/20 00:00 04/17/20 09:02 Sod 2.25 gm/ Sodium Chloride IV Infused Q8H [facility] Infusion Insulin Human Lispro 0 unit 04/15/20 07:30 04/17/20 11:59 Insulin Lispro 100 Unit/Ml 3 Ml Vial SUBCUT Not Given QIDACHS [facility] Protocol Lidocaine 2 patch 04/15/20 09:15 04/17/20 08:08 Lidocaine 4 % Patch Adh..Patch TRANSDERMA 2 patch DAILY RAUL Administration Protocol Oxycodone HCl 2.5 mg 04/15/20 02:39 04/15/20 03:15 Oxycodone Hcl Immed Release 5 Mg Tablet PO 2.5 mg Q6H PRN Administration [facility] Consult 1 each 04/14/20 23:02 Consult Rx Vancomycin Dosing MISCELLANE DAILY PRN Consult order Prednisolone Acetate 1 drop 04/15/20 09:00 04/17/20 08:09 Prednisolone Acetate 1 % Oph Susp 5 Ml Drpbtl EYE-LEFT 1 drop DAILY RAUL Administration Senna 17.2 mg 04/14/20 23:06 Sennosides 8.6 Mg Tablet PO BEDTIME PRN Constipation Sodium Chloride 3 ml 04/15/20 00:00 04/17/20 08:09 0.9 % Sodium Chloride Flush 3 Ml Syringe IVFLUSH 3 ml QSHIFT RAUL Administration Timolol Maleate 1 drop 04/15/20 09:00 04/17/20 09:01 Timolol Maleate Xe 0.25 % Gel 5 Ml Drbtl EYE-RIGHT 1 drop DAILY RAUL Administration Home Medications Medication Instructions Recorded Confirmed Last Taken Type aspirin 81 mg PO DAILY 04/15/20 04/15/20 Unknown History atropine 1 drp BID 04/15/20 04/15/20 Unknown History glyburide 1 tab PO BID 04/15/20 04/15/20 Unknown History prednisolone acetate 1 drp DAILY 04/15/20 04/15/20 Unknown History timolol maleate 1 drp OPHTHALMIC-RIGHT DAILY 04/15/20 04/15/20 Unknown History Physical Exam Vital Signs: Vital Signs: Last Vital Signs Temp 98.6 F 04/17/20 11:08 Pulse 86 04/17/20 11:08 Resp 18 04/17/20 11:08 BP 166/60 H 04/17/20 11:08 Pulse Ox 94 04/17/20 11:08 Body Mass Index 32.3 Const: General: cooperative, healthy appearing and comfortable Orientation/consciousness: oriented to person, oriented to place and oriented to time HENMT: Head: Yes normal to inspection Neck: Neck: Yes normal visual inspection Carotids: no bruits Chest: Chest palpation & inspection: normal inspection of the chest Resp: Effort & Inspection: normal respiratory effort and able to speak in complete sentences Auscultation: clear to auscultation bilaterally, no crackles, no rales, no rhonchi and no wheezes Cardio: Rate: regular rate Rhythm: regular rhythm Heart sounds: S1 normal heart sound present and S2 normal heart sound present Bruits: no carotid bruits Peripheral pulses: other (Bilateral DP signals) GI: Inspection: Yes normal to inspection Skin: Wounds: wounds noted (Right great toe dry gangrene) Hair: normal Neuro: General: oriented to person, oriented to place and oriented to time Cranial nerves: Yes CN's II-XII intact bilaterally and Yes Normal hearing present Cognition (Neuro): normal cognition Motor exam (neuro): 5/5 motor strength present throughout Extrem: Other: venous exam: No significant superficial varicosities or spider telangiectasias, minimal edema General: No clubbing, No cyanosis and No edema Psych: Appearance: grossly normal Mental Status: mental status grossly normal Speech and movement: Normal speech and movement present Results Labs Result diagrams: 04/16/20 07:55 04/16/20 07:55 Labs: Abnormal lab results 04/16/20 04/16/20 04/17/20 Range/Units 16:02 19:54 11:31 POC Glucose 131 H 142 H 129 H (60-115) mg/dL Urine 04/14/20 Range/Units 23:03 Urine Color YELLOW Urine Appearance CLOUDY Urine pH 6.0 (5.0-8.0) Ur Specific [place] 1.020 (1.005-1.025) Urine Protein 2+ H (NEG-TRACE) MG/DL Urine Glucose (UA) 100 H (NEG) MG/DL All other labs normal. Assessment and Plan (1) PAD (peripheral artery disease): Status: Acute In short patient has nonhealing right great toe ulcer. There is concern of underlying osteomyelitis, on CT images which I reviewed. I have taken the liberty of ordering noninvasive arterial testing. Based on that she may require endovascular intervention. Once that is accomplished, she will most likely need great toe amputation. This was related to the patient. She demonstrated a clear understanding. Thank you for allowing us to assist in her care. Forty-five minutes was spent with direct discussion with the patient, record assessment, ordering and reviewing imaging, independent assessment of imaging, and management of services. Procedures Date of Service Date of Service: 04/17/20
[2020-04-17 12:29] LABS: Iron 21 mcg/dL (30-160); Percent Iron Saturation 12 % (15-50); Total Iron Binding Capacity 177 mcg/dL (228-428); Unsaturated Iron Binding 156 ug/dL
[2020-04-17] MEDS: Calcium + Vitamin D 250 MG TABLET 500 MG PO (13:54)
[2020-04-17] MEDS: Ascorbic Acid 500 MG TABLET PO (13:54)
--- NOTE | 2020-04-17 14:10 | HO.PM.IMPN ---
Subjective Subjective Date of Service: 04/17/20 Interval History: Patient seen and examined at bedside patient was reporting pain in her foot ENT Ears, Nose, Mouth, and Throat: Reports Normal hearing present Neurologic Neurologic: Reports Normal hearing present and Reports Abnormal speech present Physical Exam Vital Signs: Vital Signs: Last Vital Signs Temp 98.6 F 04/17/20 11:08 Pulse 86 04/17/20 11:08 Resp 18 04/17/20 11:08 BP 166/60 H 04/17/20 11:08 Pulse Ox 94 04/17/20 11:08 Body Mass Index 32.3 Const: General: cooperative, healthy appearing, comfortable, no acute distress and awake Orientation/consciousness: oriented to person, oriented to place and oriented to time Limitations: no limitations HENMT: Head: Yes normal to inspection, Yes normocephalic and Yes atraumatic Ears: external ears normal General nose exam: Normal external nose present Face and sinus: Yes normal facial exam Mouth: Normal oral and palatal mucosa present Throat: Yes posterior oropharynx normal Eyes: General: appearance normal, both eyes and all related structures Periorbital: periorbital findings normal Eyelids: Yes eyelids normal Conjunctivae: conjunctivae normal Sclerae: sclerae normal Corneas: corneas normal Pupils: Equal, round and reactive pupils present Neck: Neck: Yes normal visual inspection, Yes full ROM, Yes no lymphadenopathy, Yes no meningeal signs, Yes trachea midline, Yes supple and Yes no JVD Carotids: no bruits Chest: Chest palpation & inspection: normal inspection of the chest and normal palpation of entire chest wall Resp: Effort & Inspection: normal respiratory effort and able to speak in complete sentences Auscultation: clear to auscultation bilaterally, no crackles, no rales, no rhonchi and no wheezes Cardio: Rate: regular rate and tachycardic Rhythm: regular rhythm Heart sounds: S1 normal heart sound present, S2 normal heart sound present and no murmurs Bruits: no carotid bruits Peripheral pulses: other (Bilateral DP signals) GI: Inspection: Yes normal to inspection Palpation (GI): Soft to palpation, nontender, no guarding, not rigid and No hepatosplenomegaly present : General: Yes no CVA tenderness Back/Spine/Pelvis: Back: no CVA tenderness Cervical Spine: normal cervical lordosis Thoracic/Lumbar Spine: thoracic and lumbar spine normal to inspection and paraspinal muscle tenderness bilaterally in the mid lumbar and in the lower lumbar Skin: Other: Improving erythema of the Right foot and less tenderness to palpation. No drainage. General skin exam: no rashes or lesions noted Lesions: no lesions Rashes: other (Right great toe infection) Wounds: no wounds and wounds noted (Right great toe dry gangrene) Hair: normal Neuro: General: oriented to person, oriented to place, oriented to time and no meningeal signs Cranial nerves: Yes CN's II-XII intact bilaterally, Yes Equal, round and reactive pupils present and Yes Normal hearing present Cognition (Neuro): normal cognition Speech: Abnormal speech present Motor exam (neuro): 5/5 motor strength present throughout Extrem: Other: venous exam: No significant superficial varicosities or spider telangiectasias, minimal edema General: No clubbing, No cyanosis and No edema Psych: Appearance: grossly normal and well kempt Mental Status: mental status grossly normal Speech and movement: Normal speech and movement present Affect: normal affect Attitude: cooperative Thought process: Normal thought process present Thought content: Normal thought content present Objective Data Current Medications Generic Name Dose Route Start Last Admin Trade Name Freq PRN Reason Stop Dose Admin Acetaminophen 650 mg 04/14/20 23:06 04/17/20 06:08 Acetaminophen 325 Mg Tablet PO 650 mg Q6H PRN Administration Pain, Mild (Pain Scale 1-3) Ascorbic Acid 500 mg 04/17/20 13:30 04/17/20 13:54 Ascorbic Acid 500 Mg Tablet PO 500 mg DAILY [facility] Administration Aspirin 81 mg 04/15/20 09:00 04/17/20 08:08 Aspirin 81 Mg Tab.Chew PO 81 mg DAILY [facility] Administration Atropine Sulfate 1 drop 04/15/20 09:00 04/17/20 08:09 Atropine Sulfate 1 % Ophth Jacki 2 Ml Bottle EYE-LEFT 1 drop TID [facility] Administration Calcium Carbonate/Cholecalciferol 500 mg 04/17/20 13:30 04/17/20 13:54 Calcium + Vitamin D 250 Mg Tablet PO 500 mg DAILY [facility] Administration Docusate Sodium 100 mg 04/15/20 09:00 04/17/20 08:08 Docusate Sodium 100 Mg Capsule PO 100 mg BID [facility] Administration Glyburide 5 mg 04/15/20 08:00 04/17/20 08:01 Glyburide 5 Mg Tablet PO Not Given BIDWM [facility] Heparin Sodium (Porcine) 5,000 unit 04/14/20 23:15 04/17/20 08:08 Heparin Sodium,Porcine 5,000 Unit/Ml Vial SUBCUT 5,000 unit BID [facility] Administration Piperacillin Sod/Tazobactam 50 mls @ 100 mls/hr 04/15/20 00:00 04/17/20 09:02 Sod 2.25 gm/ Sodium Chloride IV Infused Q8H [facility] Infusion Insulin Human Lispro 0 unit 04/15/20 07:30 04/17/20 11:59 Insulin Lispro 100 Unit/Ml 3 Ml Vial SUBCUT Not Given QIDACHS [facility] Protocol Lidocaine 2 patch 04/15/20 09:15 04/17/20 08:08 Lidocaine 4 % Patch Adh..Patch TRANSDERMA 2 patch DAILY [facility] Administration Protocol Oxycodone HCl 2.5 mg 04/15/20 02:39 04/15/20 03:15 Oxycodone Hcl Immed Release 5 Mg Tablet PO 2.5 mg Q6H PRN Administration [facility] Consult 1 each 04/14/20 23:02 Consult Rx Vancomycin Dosing MISCELLANE DAILY PRN Consult order Prednisolone Acetate 1 drop 04/15/20 09:00 04/17/20 08:09 Prednisolone Acetate 1 % Oph Susp 5 Ml Drpbtl EYE-LEFT 1 drop DAILY [facility] Administration Senna 17.2 mg 04/14/20 23:06 Sennosides 8.6 Mg Tablet PO BEDTIME PRN Constipation Sodium Chloride 3 ml 04/15/20 00:00 04/17/20 08:09 0.9 % Sodium Chloride Flush 3 Ml Syringe IVFLUSH 3 ml QSHIFT [facility] Administration Timolol Maleate 1 drop 04/15/20 09:00 04/17/20 09:01 Timolol Maleate Xe 0.25 % Gel 5 Ml Drbtl EYE-RIGHT 1 drop DAILY [facility] Administration Labs CBC & Chem 7: 04/16/20 07:55 04/16/20 07:55 Microbiology Microbiology Results: Microbiology 04/14/20 Unknown Urine clean catch - Clean Catch Midstream Urine Culture - Final Klebsiella pneumoniae 04/14/20 21:49 Blood - Venous Blood Culture - Preliminary No growth after 48 hours. 04/14/20 21:49 Blood - Venous Blood Culture - Preliminary No growth after 48 hours. Assessment and Plan (1) Osteomyelitis of great toe of right foot: Status: Acute Assessment and Plan: 75-year-old female with a past medical history of hypertension, hyperlipidemia, diabetes, legally blind, lives alone presented to the hospital with a chief complaint of right lower extremity pain. Diabetic foot infection/ gas noted on CT. Foot pain and redness decreasing, seen and examined by general surgery with recommendation for vascular surgery consultation. vascular surgery consulted plan for arterial study today may require amputation. continue Zosyn -pain management blood cultures so far negative UTI Continue Zosyn urine culture grew Klebsiella KRYSTYNA on CKD. Diabetic nephropathy creatinine trending down Nephrology following Avoid nephrotoxins. Anemia baseline not clear hemoglobin around 8.8 on admission trending down 7.7 today Will check stool for occult blood iron studies consistent with iron deficiency anemia if hemoglobin dropped further will consider transfusion and GI consult will hold heparin subQ Hyperkalemia. Resolved with kayexalate -trend. Back pain. Chronic continue Lidocaine patch continue Oxycodone. Diabetes continue insulin sliding scale, ADA diet Legally Blind -Home eye drops. DVT prophylaxis on heparin subQ will stop heparin subQ as a H&H dropped will start on Venodyne
[2020-04-17 16:46] LABS: Glucose, Whole Blood 116 mg/dL (60-115)
[2020-04-17] MEDS: glyBURIDE 5 MG TABLET PO (17:08)
[2020-04-17 20:00] LABS: Glucose, Whole Blood 181 mg/dL (60-115)
[2020-04-18] VITALS (7 sets, daily range): BP systolic 144–190; BP diastolic 64–84; PULSE 83–97; RESP 17–18; TEMP 36.9–37.2; O2SAT 94–98
[2020-04-18 00:30] LABS: MANUAL DIFF FLAG NO
[2020-04-18 00:33] LABS: Basophils Absolute Auto 0.1 X10*3/uL (0.0-0.2); Basophils Percent Auto 0.5 % (0-2); Eosinophils Absolute Auto 0.4 X10*3/uL (0.0-0.4); Eosinophils Percent Auto 3.8 % (0-4); Hemoglobin 7.8 g/dl (12.0-16.0); Imm Gran Abs Auto 0.04 X10*3/uL (0.00-0.03); Imm Gran Pct Auto 0.4 % (0.0-0.4); Lymphocytes Absolute Auto 2.3 X10*3/uL (1.2-4.9); Lymphocytes Percent Auto 23.5 % (20-40); Mean Corpuscular HGB Conc 31.2 g/dl (31.0-35.0); Mean Corpuscular Volume 89.6 fL (80-98); Mean Platelet Volume 9.6 fL (9.4-12.3); Monocytes Absolute Auto 0.8 X10*3/uL (0.1-1.2); Monocytes Percent Auto 8.1 % (2-11); Neutrophils Absolute Auto 6.3 X10*3/uL (2.0-8.3); Neutrophils Percent Auto 63.7 % (45-73); Platelet Count 302 X10*3/uL (160-400); Red Blood Count 2.79 X10*6/uL (4.20-5.50); Red Cell Distribution Width 12.4 % (11.0-16.0); White Blood Count 9.9 X10*3/uL (4.8-10.8)
[2020-04-18] MEDS: 0.9 % Sodium Chloride Flush 3 ML SYRINGE IVFLUSH ×3 (00:38→15:53)
[2020-04-18 00:50] LABS: Lactic Acid 0.5 mmol/L (0.5-2.0)
[2020-04-18] MEDS: Acetaminophen 325 MG TABLET 650 MG PO ×3 (03:41→21:12)
[2020-04-18 07:11] LABS: Glucose, Whole Blood 88 mg/dL (60-115)
[2020-04-18] MEDS: Aspirin 81 MG TAB.CHEW PO (08:29)
[2020-04-18] MEDS: Calcium + Vitamin D 250 MG TABLET 500 MG PO (08:29)
[2020-04-18] MEDS: Piperacillin Sodium/Tazobactam 2.25 GM in 0.9 % Sodium Chloride 50 ML IV ×3 (08:30→23:13)
[2020-04-18] MEDS: Ascorbic Acid 500 MG TABLET PO (08:30)
[2020-04-18] MEDS: glyBURIDE 5 MG TABLET PO ×2 (08:30→16:01)
[2020-04-18] MEDS: Heparin Sodium,Porcine 5,000 UNIT/ML VIAL 5000 UNIT SUBCUT ×2 (08:30→21:10)
[2020-04-18] MEDS: Atropine Sulfate 1 % Ophth Sol 2 ML BOTTLE 1 DROP EYE-LEFT ×3 (08:42→21:10)
[2020-04-18] MEDS: prednisoLONE Acetate 1 % Oph Susp 5 ML DRPBTL 1 DROP EYE-LEFT (08:42)
[2020-04-18] MEDS: Lidocaine 4 % Patch ADH..PATCH 2 PATCH TRANSDERMA (08:42)
[2020-04-18 09:39] LABS: Anion Gap 12 (12-20); Blood Urea Nitrogen 35 mg/dL (9-16); Carbon Dioxide 23 mmol/L (22-29); Chloride 111 mmol/L (96-108); Creatinine Clr Calc Pharmacy 22.3; Estimated Glomerular Filt Rate 19; Glucose Random 104 mg/dL (60-115); Potassium 4.4 mmol/L (3.3-5.1); Sodium 142 mmol/L (135-145)
[2020-04-18 09:46] LABS: Calcium 8.2 mg/dL (8.4-10.2)
[2020-04-18 11:41] LABS: Glucose, Whole Blood 79 mg/dL (60-115)
[2020-04-18] MEDS: 0.9 % Sodium Chloride 1,000 ML 100 ML IVCONT ×2 (12:22→23:14)
[2020-04-18 13:57] LABS: Calcium (PTHI) 8.1 mg/dL (8.6-10.4); IgA 213 mg/dL (70-320); IgG 1357 mg/dL (600-1540); IgM 37 mg/dL (50-300); PTHI 75 pg/mL (14-64)
--- NOTE | 2020-04-18 14:14 | P.PNIM_ITS ---
Subjective Subjective Date of Service: 04/19/20 Interval History: Patient seen and examined at bedside patient denies any complaint ENT Ears, Nose, Mouth, and Throat: Reports Normal hearing present Neurologic Neurologic: Reports Normal hearing present and Reports Abnormal speech present Physical Exam Vital Signs: Vital Signs: Last Vital Signs Temp 98.9 F 04/18/20 11:28 Pulse 83 04/18/20 11:28 Resp 18 04/18/20 11:28 BP 189/75 H 04/18/20 11:28 Pulse Ox 95 04/18/20 11:28 Body Mass Index 32.3 Const: General: cooperative, healthy appearing, comfortable, no acute distress and awake Orientation/consciousness: oriented to person, oriented to place and oriented to time Limitations: no limitations HENMT: Head: Yes normal to inspection, Yes normocephalic and Yes atraumatic Ears: external ears normal General nose exam: Normal external nose present Face and sinus: Yes normal facial exam Mouth: Normal oral and palatal mucosa present Throat: Yes posterior oropharynx normal Eyes: General: appearance normal, both eyes and all related structures Periorbital: periorbital findings normal Eyelids: Yes eyelids normal Conjunctivae: conjunctivae normal Sclerae: sclerae normal Corneas: corneas normal Pupils: Equal, round and reactive pupils present Neck: Neck: Yes normal visual inspection, Yes full ROM, Yes no lymphadenopathy, Yes no meningeal signs, Yes trachea midline, Yes supple and Yes no JVD Carotids: no bruits Chest: Chest palpation & inspection: normal inspection of the chest and normal palpation of entire chest wall Resp: Effort & Inspection: normal respiratory effort and able to speak in complete sentences Auscultation: clear to auscultation bilaterally, no crackles, no rales, no rhonchi and no wheezes Cardio: Rate: regular rate and tachycardic Rhythm: regular rhythm Heart sounds: S1 normal heart sound present, S2 normal heart sound present and no murmurs Bruits: no carotid bruits Peripheral pulses: other (Bilateral DP signals) GI: Inspection: Yes normal to inspection Palpation (GI): Soft to palpation, nontender, no guarding, not rigid and No hepatosplenomegaly present : General: Yes no CVA tenderness Back/Spine/Pelvis: Back: no CVA tenderness Cervical Spine: normal cervical lordosis Thoracic/Lumbar Spine: thoracic and lumbar spine normal to inspection and paraspinal muscle tenderness bilaterally in the mid lumbar and in the lower lumbar Skin: Other: Improving erythema of the Right foot and less tenderness to palpation. No drainage. General skin exam: no rashes or lesions noted Lesions: no lesions Rashes: other (Right great toe infection) Wounds: no wounds and wounds noted (Right great toe dry gangrene) Hair: normal Neuro: General: oriented to person, oriented to place, oriented to time and no meningeal signs Cranial nerves: Yes CN's II-XII intact bilaterally, Yes Equal, round and reactive pupils present and Yes Normal hearing present Cogni tion (Neuro): normal cognition Speech: Abnormal speech present Motor exam (neuro): 5/5 motor strength present throughout Extrem: Other: venous exam: No significant superficial varicosities or spider telangiectasias, minimal edema General: No clubbing, No cyanosis and No edema Psych: Appearance: grossly normal and well kempt Mental Status: mental status grossly normal Speech and movement: Normal speech and movement present Affect: normal affect Attitude: cooperative Thought process: Normal thought process present Thought content: Normal thought content present Objective Data Current Medications Generic Name Dose Route Start Last Admin Trade Name Harmanq PRN Reason Stop Dose Admin Acetaminophen 650 mg 04/14/20 23:06 04/18/20 03:41 Acetaminophen 325 Mg Tablet PO 650 mg Q6H PRN Administration Pain, Mild (Pain Scale 1-3) Ascorbic Acid 500 mg 04/17/20 13:30 04/18/20 08:30 Ascorbic Acid 500 Mg Tablet PO 500 mg DAILY [facility] Administration Aspirin 81 mg 04/15/20 09:00 04/18/20 08:29 Aspirin 81 Mg Tab.Chew PO 81 mg DAILY [facility] Administration Atropine Sulfate 1 drop 04/15/20 09:00 04/18/20 08:42 Atropine Sulfate 1 % Ophth Jacki 2 Ml Bottle EYE-LEFT 1 drop TID [facility] Administration Calcium Carbonate/Cholecalciferol 500 mg 04/17/20 13:30 04/18/20 08:29 Calcium + Vitamin D 250 Mg Tablet PO 500 mg DAILY [facility] Administration Docusate Sodium 100 mg 04/15/20 09:00 04/18/20 08:41 Docusate Sodium 100 Mg Capsule PO Not Given BID RAUL Glyburide 5 mg 04/15/20 08:00 04/18/20 08:30 Glyburide 5 Mg Tablet PO 5 mg BIDWM [facility] Administration Heparin Sodium (Porcine) 5,000 unit 04/14/20 23:15 04/18/20 08:30 Heparin Sodium,Porcine 5,000 Unit/Ml Vial SUBCUT 5,000 unit BID [facility] Administration Piperacillin Sod/Tazobactam 50 mls @ 100 mls/hr 04/15/20 00:00 04/18/20 09:45 Sod 2.25 gm/ Sodium Chloride IV Infused Q8H [facility] Infusion Sodium Chloride 1,000 mls @ 100 mls/hr 04/18/20 09:30 04/18/20 12:22 Ns IVCONT 100 mls/hr .Q10H [facility] Administration Insulin Human Lispro 0 unit 04/15/20 07:30 04/18/20 12:22 Insulin Lispro 100 Unit/Ml 3 Ml Vial SUBCUT Not Given QIDACHS [facility] Protocol Lidocaine 2 patch 04/15/20 09:15 04/18/20 08:42 Lidocaine 4 % Patch Adh..Patch TRANSDERMA 2 patch DAILY [facility] Administration Protocol Oxycodone HCl 2.5 mg 04/15/20 02:39 04/15/20 03:15 Oxycodone Hcl Immed Release 5 Mg Tablet PO 2.5 mg Q6H PRN Administration [facility] Consult 1 each 04/14/20 23:02 Consult Rx Vancomycin Dosing MISCELLANE DAILY PRN Consult order Prednisolone Acetate 1 drop 04/15/20 09:00 04/18/20 08:42 Prednisolone Acetate 1 % Oph Susp 5 Ml Drpbtl EYE-LEFT 1 drop DAILY [facility] Administration Senna 17.2 mg 04/14/20 23:06 Sennosides 8.6 Mg Tablet PO BEDTIME PRN Constipation Sodium Chloride 3 ml 04/15/20 00:00 04/18/20 08:29 0.9 % Sodium Chloride Flush 3 Ml Syringe IVFLUSH 3 ml QSHIFT [facility] Administration Timolol Maleate 1 drop 04/15/20 09:00 04/18/20 12:04 Timolol Maleate Xe 0.25 % Gel 5 Ml Drbtl EYE-RIGHT Not Given DAILY [facility] Labs CBC & Chem 7: 04/18/20 00:16 04/19/20 05:15 Microbiology Microbiology Results: Microbiology 04/14/20 Unknown Urine clean catch - Clean Catch Midstream Urine Culture - Final Klebsiella pneumoniae 04/14/20 21:49 Blood - Venous Blood Culture - Preliminary No growth after 48 hours. 04/14/20 21:49 Blood - Venous Blood Culture - Preliminary No growth after 48 hours. Assessment and Plan (1) Osteomyelitis of great toe of right foot: Status: Acute Assessment and Plan: 75-year-old female with a past medical history of hypertension, hyperlipidemia, diabetes, legally blind, lives alone presented to the hospital with a chief c omplaint of right lower extremity pain. Diabetic foot infection/ gas noted on CT. vascular surgery consulted arterial studies shows significant stenosis plan for angiogram today will likely need amputation continue Zosyn -pain management blood cultures so far negative UTI Continue Zosyn urine culture grew Klebsiella KRYSTYNA on CKD. Diabetic nephropathy improving creatinine trending down restarted on IV fluid per vascular for angiogram today Nephrology following Avoid nephrotoxins. Anemia baseline not clear hemoglobin around 8.8 on admission slowly trending down 7.7 today stool for occult blood pending iron studies consistent with iron deficiency anemia gi consult pending hold heparin subQ Hyperkalemia. Resolved with kayexalate -trend. Back pain. Chronic continue Lidocaine patch continue Oxycodone. Diabetes continue insulin sliding scale, ADA diet Legally Blind -Home eye drops. DVT prophylaxis on heparin subQ heparin subQ. For drop in H&H continue Venodyne
--- NOTE | 2020-04-18 14:26 | HO.VASCPN ---
Subjective Subjective Date of Service: 04/18/20 Patient reports: no new complaints and feels better Interval history: Patient seen and examined. No events overnight. Has been receiving IV antibiotics. In general patient states that she feels fairly well. She now presents for routine follow-up. Of note noninvasive arterial testing has been performed. Physical Exam Vital Signs: Vital Signs: Last Vital Signs Temp 98.9 F 04/18/20 11:28 Pulse 83 04/18/20 11:28 Resp 18 04/18/20 11:28 BP 189/75 H 04/18/20 11:28 Pulse Ox 95 04/18/20 11:28 Body Mass Index 32.3 Const: General: cooperative, healthy appearing and no acute distress Orientation/consciousness: oriented to person, oriented to place and oriented to time HENMT: Head: Yes normal to inspection Neck: Carotids: no bruits Chest: Chest palpation & inspection: normal inspection of the chest Resp: Effort & Inspection: normal respiratory effort and able to speak in complete sentences Auscultation: clear to auscultation bilaterally Cardio: Rate: regular rate Heart sounds: S1 normal heart sound present and S2 normal heart sound present Peripheral pulses: dorsalis pedis present (Bilateral DP signals) GI: Inspection: Yes normal to inspection Skin: General skin exam: no rashes or lesions noted Wounds: wounds noted (Right great toe) Neuro: General: oriented to person, oriented to place, oriented to time and CN's II-XI intact bilaterally Extrem: General: Yes normal to inspection, Yes full ROM and Yes no clubbing, cyanosis or edema Psych: Appearance: grossly normal and well kempt Speech and movement: Normal speech and movement present Affect: normal affect Progress Note: A&P Assessment and plan (1) PAD (peripheral artery disease): Status: Acute Assessment and Plan: Patient has nonhealing right great toe ulcer. I have discussed the pathophysiology of peripheral vascular disease with the patient. I have also discussed risk factor modification. I have reviewed the patient's arterial testing which reveals popliteal and below-knee disease.. the patient would benefit from a right leg endovascular peripheral angiogram with possible angioplasty, stent, and/or atherectomy. This has been discussed in detail with the patient along with risks, benefits, and complications. This includes but is not limited to bleeding, infection, heart attack, need for emergent surgical repair, limb ischemia, blood vessel damage, bleeding, puncture, kidney injury, bruising, allergic reaction, and skin reaction. The patient demonstrates a clear understanding. We will schedule for the next appropriate time. Thank you for allowing us to assist in this patient's care. Fall Risk Details Current Medications: Current Medications Generic Name Dose Route Start Last Admin Trade Name Freq PRN Reason Stop Dose Admin Acetaminophen 650 mg 04/14/20 23:06 04/18/20 03:41 Acetaminophen 325 Mg Tablet PO 650 mg Q6H PRN Administration Pain, Mild (Pain Scale 1-3) Amlodipine Besylate 5 mg 04/18/20 14:15 Amlodipine Besylate 5 Mg Tablet PO DAILY [facility] Protocol Ascorbic Acid 500 mg 04/17/20 13:30 04/18/20 08:30 Ascorbic Acid 500 Mg Tablet PO 500 mg DAILY [facility] Administration Aspirin 81 mg 04/15/20 09:00 04/18/20 08:29 Aspirin 81 Mg Tab.Chew PO 81 mg DAILY [facility] Administration Atropine Sulfate 1 drop 04/15/20 09:00 04/18/20 08:42 Atropine Sulfate 1 % Ophth Jacki 2 Ml Bottle EYE-LEFT 1 drop TID [facility] Administration Calcium Carbonate/Cholecalciferol 500 mg 04/17/20 13:30 04/18/20 08:29 Calcium + Vitamin D 250 Mg Tablet PO 500 mg DAILY [facility] Administration Docusate Sodium 100 mg 04/15/20 09:00 04/18/20 08:41 Docusate Sodium 100 Mg Capsule PO Not Given BID [facility]UL Glyburide 5 mg 04/15/20 08:00 04/18/20 08:30 Glyburide 5 Mg Tablet PO 5 mg BIDWM [facility] Administration Heparin Sodium (Porcine) 5,000 unit 04/14/20 23:15 04/18/20 08:30 Heparin Sodium,Porcine 5,000 Unit/Ml Vial SUBCUT 5,000 unit BID [facility] Administration Piperacillin Sod/Tazobactam 50 mls @ 100 mls/hr 04/15/20 00:00 04/18/20 09:45 Sod 2.25 gm/ Sodium Chloride IV Infused Q8H [facility] Infusion Sodium Chloride 1,000 mls @ 100 mls/hr 04/18/20 09:30 04/18/20 12:22 Ns IVCONT 100 mls/hr .Q10H [facility] Administration Insulin Human Lispro 0 unit 04/15/20 07:30 04/18/20 12:22 Insulin Lispro 100 Unit/Ml 3 Ml Vial SUBCUT Not Given QIDACHS [facility] Protocol Lidocaine 2 patch 04/15/20 09:15 04/18/20 08:42 Lidocaine 4 % Patch Adh..Patch TRANSDERMA 2 patch DAILY [facility] Administration Protocol Oxycodone HCl 2.5 mg 04/15/20 02:39 04/15/20 03:15 Oxycodone Hcl Immed Release 5 Mg Tablet PO 2.5 mg Q6H PRN Administration [facility] Consult 1 each 04/14/20 23:02 Consult Rx Vancomycin Dosing MISCELLANE DAILY PRN Consult order Prednisolone Acetate 1 drop 04/15/20 09:00 04/18/20 08:42 Prednisolone Acetate 1 % Oph Susp 5 Ml Drpbtl EYE-LEFT 1 drop DAILY [facility] Administration Senna 17.2 mg 04/14/20 23:06 Sennosides 8.6 Mg Tablet PO BEDTIME PRN Constipation Sodium Chloride 3 ml 04/15/20 00:00 04/18/20 08:29 0.9 % Sodium Chloride Flush 3 Ml Syringe IVFLUSH 3 ml QSHIFT [facility] Administration Timolol Maleate 1 drop 04/15/20 09:00 04/18/20 12:04 Timolol Maleate Xe 0.25 % Gel 5 Ml Drbtl EYE-RIGHT Not Given DAILY [facility] Time Spent With Patient Time: Total time spent is greater than 50% in coordination of care (as documented) at patient's floor/unit and/or counseling patient: Time with patient: 15 - 24 minutes
--- NOTE | 2020-04-18 15:47 | PM.EVENT ---
Event Note Date of Service: 04/18/20 Event Note: To OR per Dr Blood Would give po Augmentin with Doxycycline likely several days on discharge
[2020-04-18 16:10] LABS: Glucose, Whole Blood 106 mg/dL (60-115)
[2020-04-18 18:52] LABS: OBS Int Ctl Valid YES; OBS1 NEG (NEG)
--- NOTE | 2020-04-18 19:17 | PM.PNNEP ---
Subjective Subjective Date of Service: 04/18/20 Interval history: seen and examined. Events noted Physical Exam Vital Signs: Vital Signs: Last Vital Signs Temp 98.5 F 04/18/20 19:01 Pulse 83 04/18/20 19:01 Resp 18 04/18/20 19:01 BP 164/68 H 04/18/20 19:01 Pulse Ox 98 04/18/20 19:01 Body Mass Index 32.3 Const: General: cooperative, no acute distress and awake Orientation/consciousness: oriented to person and oriented to place Limitations: no limitations HENMT: Head: Yes normal to inspection, Yes normocephalic and Yes atraumatic Ears: external ears normal General nose exam: Normal external nose present Face and sinus: Yes normal facial exam Mouth: Normal oral and palatal mucosa present Throat: Yes posterior oropharynx normal Eyes: General: appearance normal, both eyes and all related structures Periorbital: periorbital findings normal Eyelids: Yes eyelids normal Conjunctivae: conjunctivae normal Sclerae: sclerae normal Corneas: corneas normal Pupils: Equal, round and reactive pupils present Neck: Neck: Yes full ROM, Yes no lymphadenopathy, Yes no meningeal signs, Yes trachea midline, Yes supple and Yes no JVD Chest: Chest palpation & inspection: normal inspection of the chest and normal palpation of entire chest wall Resp: Effort & Inspection: normal respiratory effort and able to speak in complete sentences Auscultation: clear to auscultation bilaterally Cardio: Rate: regular rate and tachycardic Rhythm: regular rhythm Heart sounds: S1 normal heart sound present, S2 normal heart sound present and no murmurs Peripheral pulses: other (Unable to plapate DP, PT bilaterally) GI: Inspection: Yes normal to inspection Palpation (GI): Soft to palpation, nontender, no guarding, not rigid and No hepatosplenomegaly present : General: Yes no CVA tenderness Back/Spine/Pelvis: Back: no CVA tenderness Cervical Spine: normal cervical lordosis Thoracic/Lumbar Spine: thoracic and lumbar spine normal to inspection and paraspinal muscle tenderness bilaterally in the mid lumbar and in the lower lumbar Skin: Other: Improving erythema of the Right foot and less tenderness to palpation. No drainage. General skin exam: no rashes or lesions noted Lesions: no lesions Rashes: other (Right great toe infection) Wounds: no wounds Neuro: General: oriented to person, oriented to place and no meningeal signs Cranial nerves: Yes CN's II-XII intact bilaterally and Yes Equal, round and reactive pupils present Cognition (Neuro): normal cognition Speech: Abnormal speech present Motor exam (neuro): 5/5 motor strength present throughout Extrem: Other: great toe black tip,mild proximal cellulitis Psych: Appearance: well kempt Mental Status: mental status grossly normal Speech and movement: Normal speech and movement present Affect: normal affect Attitude: cooperative Thought process: Normal thought process present Thought content: Normal thought content present Objective Data Labs CBC & Chem 7: 04/18/20 00:16 04/18/20 08:35 Labs: Laboratory Results - last 24 hr 04/17/20 04/17/20 04/17/20 11:49 11:49 19:51 WBC RBC Hgb Hct MCV MCH MCHC RDW Plt Count MPV Immature Gran % (Auto) Neut % (Auto) Lymph % (Auto) [place] % (Auto) Eos % (Auto) Baso % (Auto) Lymph # (Auto) [place] # (Auto) Eos # (Auto) Baso # (Auto) Abs Immat Gran (auto) Absolute Neuts (auto) Absolute Nucleated RBC Nucleated RBC % (auto) Sodium Potassium Chloride Carbon Dioxide Anion Gap BUN Creatinine Estim Creat Clear Calc Estimated GFR POC Glucose 181 H Random Glucose Lactic Acid Calcium PTH Intact 75 H Calcium (PTH Intact) 8.1 L Stool Occult Blood IgG Total 1357 IgA Total 213 IgM 37 L ALBERTA Interpretation SEE NOTE 04/18/20 04/18/20 04/18/20 00:16 00:16 07:01 WBC 9.9 RBC 2.79 L Hgb 7.8 L Hct 25.0 L MCV 89.6 MCH 28.0 MCHC 31.2 RDW 12.4 Plt Count 302 MPV 9.6 Immature Gran % (Auto) 0.4 Neut % (Auto) 63.7 Lymph % (Auto) 23.5 [place] % (Auto) 8.1 Eos % (Auto) 3.8 Baso % (Auto) 0.5 Lymph # (Auto) 2.3 [place] # (Auto) 0.8 Eos # (Auto) 0.4 Baso # (Auto) 0.1 Abs Immat Gran (auto) 0.04 H Absolute Neuts (auto) 6.3 Absolute Nucleated RBC 0.000 Nucleated RBC % (auto) 0.0 Sodium Potassium Chloride Carbon Dioxide Anion Gap BUN Creatinine Estim Creat Clear Calc Estimated GFR POC Glucose 88 Random Glucose Lactic Acid 0.5 Calcium PTH Intact Calcium (PTH Intact) Stool Occult Blood IgG Total IgA Total IgM ALBERTA Interpretation 04/18/20 04/18/20 04/18/20 08:35 11:36 16:04 WBC RBC Hgb Hct MCV MCH MCHC RDW Plt Count MPV Immature Gran % (Auto) Neut % (Auto) Lymph % (Auto) [place] % (Auto) Eos % (Auto) Baso % (Auto) Lymph # (Auto) [place] # (Auto) Eos # (Auto) Baso # (Auto) Abs Immat Gran (auto) Absolute Neuts (auto) Absolute Nucleated RBC Nucleated RBC % (auto) Sodium 142 Potassium 4.4 Chloride 111 H Carbon Dioxide 23 Anion Gap 12 BUN 35 H Creatinine 2.43 H Estim Creat Clear Calc 22.3 Estimated GFR 19 POC Glucose 79 106 Random Glucose 104 Lactic Acid Calcium 8.2 L D PTH Intact Calcium (PTH Intact) Stool Occult Blood IgG Total IgA Total IgM ALBERTA Interpretation 04/18/20 18:06 WBC RBC Hgb Hct MCV MCH MCHC RDW Plt Count MPV Immature Gran % (Auto) Neut % (Auto) Lymph % (Auto) [place] % (Auto) Eos % (Auto) Baso % (Auto) Lymph # (Auto) [place] # (Auto) Eos # (Auto) Baso # (Auto) Abs Immat Gran (auto) Absolute Neuts (auto) Absolute Nucleated RBC Nucleated RBC % (auto) Sodium Potassium Chloride Carbon Dioxide Anion Gap BUN Creatinine Estim Creat Clear Calc Estimated GFR POC Glucose Random Glucose Lactic Acid Calcium PTH Intact Calcium (PTH Intact) Stool Occult Blood NEG IgG Total IgA Total IgM ALBERTA Interpretation Microbiology Microbiology Results: Microbiology 04/14/20 Unknown Urine clean catch - Clean Catch Midstream Urine Culture - Final Klebsiella pneumoniae 04/14/20 21:49 Blood - Venous Blood Culture - Preliminary No growth after 48 hours. 04/14/20 21:49 Blood - Venous Blood Culture - Preliminary No growth after 48 hours. Assessment & Plan Assessment and plan (1) Osteomyelitis of great toe of right foot: Status: Acute Assessment and Plan: . (2) Acute kidney injury: Problem details: 1. KRYSTYNA: Scr decr with ongoing tx of infection/dehydration 2. CKD 3b: bsl SCr 2.0 range from ( 2018); most c/w DN but needs sero/urine studies to fully evaluate 3. Anemia: Fe and/or epo def; need to r/o myeloma 4. MBD of CKD 5. Cellulitis/osteo 6. DM REC: sero/urine studies as ordered; avoid NToxins will follow with team britta; she will need close renal f/u as outpt Status: Acute Time Spent With Patient Time: Total time spent is greater than 50% in coordination of care (as documented) at patient's floor/unit and/or counseling patient:
[2020-04-18 19:35] LABS: Glucose, Whole Blood 172 mg/dL (60-115)
[2020-04-18 19:38] LABS: Iron 21 mcg/dL (30-160); Percent Iron Saturation 11 % (15-50); Total Iron Binding Capacity 187 mcg/dL (228-428); Unsaturated Iron Binding 166 ug/dL
[2020-04-18 19:58] LABS: Ferritin 218 ng/mL (10-250)
[2020-04-19] VITALS (13 sets, daily range): BP systolic 152–181; BP diastolic 62–78; PULSE 75–88; RESP 14–20; TEMP 36.3–37.8; O2SAT 95–99
[2020-04-19] MEDS: 0.9 % Sodium Chloride Flush 3 ML SYRINGE IVFLUSH ×2 (00:15→15:04)
[2020-04-19 06:44] LABS: Anion Gap 13 (12-20); Blood Urea Nitrogen 34 mg/dL (9-16); Calcium 7.9 mg/dL (8.4-10.2); Carbon Dioxide 23 mmol/L (22-29); Chloride 110 mmol/L (96-108); Creatinine Clr Calc Pharmacy 21.9; Estimated Glomerular Filt Rate 19; Glucose Random 65 mg/dL (60-115); Potassium 4.5 mmol/L (3.3-5.1); Sodium 141 mmol/L (135-145)
[2020-04-19 07:34] LABS: Glucose, Whole Blood 53 mg/dL (60-115)
[2020-04-19] MEDS: Piperacillin Sodium/Tazobactam 2.25 GM in 0.9 % Sodium Chloride 50 ML IV ×3 (08:24→23:02)
[2020-04-19 08:35] LABS: Glucose, Whole Blood 152 mg/dL (60-115)
[2020-04-19] MEDS: Lidocaine HCl 1 % MPF 5 ML VIAL 10 ML SUBCUT (11:54)
[2020-04-19] MEDS: iohexoL 300 MG/ML 100 ML INFUS..BTL IV (11:55)
--- NOTE | 2020-04-19 12:02 | W.PM.OPN ---
Operative Note Operative Note Date of Service: 04/19/20 Narrative: Angiogram report from [facility] Preoperative diagnosis: Peripheral arterial disease of right lower extremity Postoperative diagnosis: Same Procedure: 1. Ultrasound-guided left common femoral access 2. Aortogram with right lower extremity runoff 3. Angioplasty of left external iliac Surgeon:Mateo Blood M.D. [employer] Manager Architect:None Anesthesia: Local with moderate conscious sedation for a total of 52 minutes, performed by de Specimens:none Drains:none Estimated blood loss: Less than 10 ml Indications: Very pleasant 75-year-old female with a nonhealing diabetic right foot ulceration. On noninvasive testing she was noted to have poor flow. She now presents for endovascular intervention. The patient has signed the informed consent after reviewing risks, complications, benefits, and alternatives previously discussed with the patient in my office. The patient was given the opportunity to ask any additional questions or voice any concerns. All questions were answered to the patient's satisfaction. Procedure in detail: Patient was brought to the angiography suite prior to which a time-out was called for patient identification and site verification. Bilateral groins were prepped and draped in the standard surgical fashion. Under ultrasound guidance left common femoral was punctured with micro puncture needle and wire. Subsequently a precision 4 [place] sheath was then placed. GIGAS wire was advanced to the level of the aorta. 4 Malaysian Flush catheter was brought up and parked at the level of the renal arteries. Aortogram was then undertaken. Catheter was brought down to the level of the iliac bifurcation. Iliacs were subsequently imaged. Catheter was then brought in up only to the aorta as there was a total right iliac occlusion. Runoff study was then undertaken. At this point no intervention could be performed on the right side so we decided to treat the left external iliac. We exchanged of for a 6 [place] sheath. 3000 units of systemic heparin was administered. After 5 minutes of circulation time we plasty this area with a regular 8 x 40 balloon. Subsequently we plasty date with a 7 x 40 drug coated balloon. It required a 2nd 7 x 40 drug coated balloon. This was brought into position and under 3 minutes and insufflated for a total of 3 minutes in duration. Once this was accomplished catheter wire sheath were removed Interpretation of films: 1. Ultrasound demonstrates appropriate femoral puncture. Image of which was saved. 2. Aortogram demonstrates appropriate caliber aorta. Minimal disease. Appropriate take-off of the renals. 3. Iliac images demonstrate direct pressure was held for 10 minutes patient tolerated the procedure well returned to recovery with stable vitals. Still not disease in the left external iliac. 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 4. Right side demonstrated iliac occlusion. There was some flow through the profundus and origin of SFA. SFA was totally occluded with reconstitution at the above knee popliteal. It appeared below knee there was a 2 vessel runoff which was hard to visualize but appeared to be anterior tibial and posterior tibial. Conclusion: 1. Successful plasty of left external iliac artery. This was done in preparation for a femoral to femoral bypass. Patient tolerated the procedure well. Will discuss operative intervention with patient. This note is constructed using voice recognition software. While every effort has been made to ensure accuracy, rn corrections errors may have been included. Thank you for allowing me to participate in the care of your patient. Yours sincerely, Mateo Blood MD, FACS, R.P.V.I.
--- NOTE | 2020-04-19 12:44 | MHC.CM.PN ---
Patient is on IV Zosyn for UTI/osteomyelitis. Patient is NPO for angiogram/palsty to RLE, possible toe amp. Discharge plan is pending hospital course and PT eval. CM will continue to follow for discharge needs.
[2020-04-19] MEDS: Acetaminophen 325 MG TABLET 975 MG PO (12:53)
[2020-04-19] MEDS: Clopidogrel Bisulfate 300 MG TABLET PO (12:54)
[2020-04-19] MEDS: Aspirin 325 MG TABLET PO (12:54)
--- NOTE | 2020-04-19 14:07 | HO.PM.IMPN ---
Subjective Subjective Date of Service: 04/19/20 Interval History: Patient seen and examined at bedside patient denies any complaint ENT Ears, Nose, Mouth, and Throat: Reports Normal hearing present Neurologic Neurologic: Reports Normal hearing present and Reports Abnormal speech present Physical Exam Vital Signs: Vital Signs: Last Vital Signs Temp 97.3 F 04/19/20 12:00 Pulse 84 04/19/20 12:29 Resp 14 04/19/20 12:29 BP 180/70 H 04/19/20 12:29 Pulse Ox 95 04/19/20 12:15 Body Mass Index 32.3 Const: General: cooperative, healthy appearing, comfortable, no acute distress and awake Orientation/consciousness: oriented to person, oriented to place and oriented to time Limitations: no limitations HENMT: Head: Yes normal to inspection, Yes normocephalic and Yes atraumatic Ears: external ears normal General nose exam: Normal external nose present Face and sinus: Yes normal facial exam Mouth: Normal oral and palatal mucosa present Throat: Yes posterior oropharynx normal Eyes: General: appearance normal, both eyes and all related structures Periorbital: periorbital findings normal Eyelids: Yes eyelids normal Conjunctivae: conjunctivae normal Sclerae: sclerae normal Corneas: corneas normal Pupils: Equal, round and reactive pupils present Neck: Neck: Yes normal visual inspection, Yes full ROM, Yes no lymphadenopathy, Yes no meningeal signs, Yes trachea midline, Yes supple and Yes no JVD Carotids: no bruits Chest: Chest palpation & inspection: normal inspection of the chest and normal palpation of entire chest wall Resp: Effort & Inspection: normal respiratory effort and able to speak in complete sentences Auscultation: clear to auscultation bilaterally, no crackles, no rales, no rhonchi and no wheezes Cardio: Rate: regular rate and tachycardic Rhythm: regular rhythm Heart sounds: S1 normal heart sound present, S2 normal heart sound present and no murmurs Bruits: no carotid bruits Peripheral pulses: other (Bilateral DP signals) GI: Inspection: Yes normal to inspection Palpation (GI): Soft to palpation, nontender, no guarding, not rigid and No hepatosplenomegaly present : General: Yes no CVA tenderness Back/Spine/Pelvis: Back: no CVA tenderness Cervical Spine: normal cervical lordosis Thoracic/Lumbar Spine: thoracic and lumbar spine normal to inspection and paraspinal muscle tenderness bilaterally in the mid lumbar and in the lower lumbar Skin: Other: Improving erythema of the Right foot and less tenderness to palpation. No drainage. General skin exam: no rashes or lesions noted Lesions: no lesions Rashes: other (Right great toe infection) Wounds: no wounds and wounds noted (Right great toe dry gangrene) Hair: normal Neuro: General: oriented to person, oriented to place, oriented to time and no meningeal signs Cranial nerves: Yes CN's II-XII intact bilaterally, Yes Equal, round and reactive pupils present and Yes Normal hearing present Cognition (Neuro): normal cognition Speech: Abnormal speech present Motor exam (neuro): 5/5 motor strength present throughout Extrem: Other: venous exam: No significant superficial varicosities or spider telangiectasias, minimal edema General: No clubbing, No cyanosis and No edema Psych: Appearance: grossly normal and well kempt Mental Status: mental status grossly normal Speech and movement: Normal speech and movement present Affect: normal affect Attitude: cooperative Thought process: Normal thought process present Thought content: Normal thought content present Objective Data Current Medications Generic Name Dose Route Start Last Admin Trade Name Freq PRN Reason Stop Dose Admin Acetaminophen 650 mg 04/14/20 23:06 04/18/20 21:12 Acetaminophen 325 Mg Tablet PO 650 mg Q6H PRN Administration Pain, Mild (Pain Scale 1-3) Amlodipine Besylate 5 mg 04/18/20 14:15 04/19/20 08:27 Amlodipine Besylate 5 Mg Tablet PO Not Given DAILY [facility] Protocol Ascorbic Acid 500 mg 04/17/20 13:30 04/19/20 08:28 Ascorbic Acid 500 Mg Tablet PO Not Given DAILY [facility] Aspirin 81 mg 04/15/20 09:00 04/19/20 08:28 Aspirin 81 Mg Tab.Chew PO Not Given DAILY [facility] Aspirin 81 mg 04/20/20 09:00 Aspirin 81 Mg Tab.Chew PO DAILY [facility] Atropine Sulfate 1 drop 04/15/20 09:00 04/19/20 08:32 Atropine Sulfate 1 % Ophth Jacki 2 Ml Bottle EYE-LEFT Not Given TID [facility] Calcium Carbonate/Cholecalciferol 500 mg 04/17/20 13:30 04/19/20 08:28 Calcium + Vitamin D 250 Mg Tablet PO Not Given DAILY [facility] Clopidogrel Bisulfate 75 mg 04/20/20 09:00 Clopidogrel Bisulfate 75 Mg Tablet PO DAILY [facility] Docusate Sodium 100 mg 04/15/20 09:00 04/19/20 08:28 Docusate Sodium 100 Mg Capsule PO Not Given BID [facility] Glyburide 5 mg 04/15/20 08:00 04/19/20 08:27 Glyburide 5 Mg Tablet PO Not Given BIDWM [facility] Heparin Sodium (Porcine) 5,000 unit 04/14/20 23:15 04/19/20 08:28 Heparin Sodium,Porcine 5,000 Unit/Ml Vial SUBCUT Not Given BID [facility] Piperacillin Sod/Tazobactam 50 mls @ 100 mls/hr 04/15/20 00:00 04/19/20 09:04 Sod 2.25 gm/ Sodium Chloride IV Infused Q8H [facility] Infusion Sodium Chloride 1,000 mls @ 100 mls/hr 04/18/20 09:30 04/19/20 11:41 Ns IVCONT Infused .Q10H [facility] Infusion Sodium Chloride 1,000 mls @ 100 mls/hr 04/19/20 12:05 Ns IVCONT 04/19/20 16:00 .Q10H [facility] Insulin Human Lispro 0 unit 04/15/20 07:30 04/19/20 11:41 Insulin Lispro 100 Unit/Ml 3 Ml Vial SUBCUT Not Given QIDACHS [facility] Protocol Lidocaine 2 patch 04/15/20 09:15 04/19/20 08:29 Lidocaine 4 % Patch Adh..Patch TRANSDERMA Not Given DAILY [facility] Protocol Oxycodone HCl 2.5 mg 04/15/20 02:39 04/15/20 03:15 Oxycodone Hcl Immed Release 5 Mg Tablet PO 2.5 mg Q6H PRN Administration [facility] Consult 1 each 04/14/20 23:02 Consult Rx Vancomycin Dosing MISCELLANE DAILY PRN Consult order Prednisolone Acetate 1 drop 04/15/20 09:00 04/19/20 08:33 Prednisolone Acetate 1 % Oph Susp 5 Ml Drpbtl EYE-LEFT Not Given DAILY [facility] Senna 17.2 mg 04/14/20 23:06 Sennosides 8.6 Mg Tablet PO BEDTIME PRN Constipation Sodium Chloride 3 ml 04/15/20 00:00 04/19/20 08:25 0.9 % Sodium Chloride Flush 3 Ml Syringe IVFLUSH Not Given QSHIFT [facility] Timolol Maleate 1 drop 04/15/20 09:00 04/19/20 08:33 Timolol Maleate Xe 0.25 % Gel 5 Ml Drbtl EYE-RIGHT Not Given DAILY [facility] Labs CBC & Chem 7: 04/18/20 00:16 04/19/20 05:15 Microbiology Microbiology Results: Microbiology 04/18/20 00:12 Blood - Venous Blood Culture - Preliminary No growth after 24 hours. 04/18/20 00:16 Blood - Venous Blood Culture - Preliminary No growth after 24 hours. 04/14/20 Unknown Urine clean catch - Clean Catch Midstream Urine Culture - Final Klebsiella pneumoniae 04/14/20 21:49 Blood - Venous Blood Culture - Preliminary No growth after 48 hours. 04/14/20 21:49 Blood - Venous Blood Culture - Preliminary No growth after 48 hours. Assessment and Plan (1) Osteomyelitis of great toe of right foot: Status: Acute Assessment and Plan: 75-year-old female with a past medical history of hypertension, hyperlipidemia, diabetes, legally blind, lives alone presented to the hospital with a chief complaint of right lower extremity pain. Diabetic foot infection/ gas noted on CT. vascular surgery consulted arterial studies shows significant stenosis plan for angiogram today will likely need amputation continue Zosyn -pain management blood cultures so far negative UTI Continue Zosyn urine culture grew Klebsiella KRYSTYNA on CKD. Diabetic nephropathy improving creatinine trending down restarted on IV fluid per vascular for angiogram today Nephrology following Avoid nephrotoxins. Anemia baseline not clear hemoglobin around 8.8 on admission slowly trending down 7.7 today stool for occult blood pending iron studies consistent with iron deficiency anemia gi consult pending hold heparin subQ Hyperkalemia. Resolved with kayexalate -trend. Back pain. Chronic continue Lidocaine patch continue Oxycodone. Diabetes continue insulin sliding scale, ADA diet Legally Blind -Home eye drops. DVT prophylaxis on heparin subQ heparin subQ. For drop in H&H continue Venodyne
[2020-04-19] MEDS: 0.9 % Sodium Chloride 1,000 ML 100 ML IVCONT ×2 (15:04→23:05)
[2020-04-19] MEDS: Atropine Sulfate 1 % Ophth Sol 2 ML BOTTLE 1 DROP EYE-LEFT ×2 (15:04→21:15)
[2020-04-19 16:18] LABS: Glucose, Whole Blood 81 mg/dL (60-115)
[2020-04-19] MEDS: glyBURIDE 5 MG TABLET PO (16:26)
[2020-04-19 20:26] LABS: Glucose, Whole Blood 183 mg/dL (60-115)
--- NOTE | 2020-04-19 21:03 | CONS_ITS ---
DATE OF SERVICE: 04/19/2020 REFERRING PHYSICIAN: Jourdan Siddiqi MD REASON FOR CONSULTATION: Anemia. HISTORY OF PRESENT ILLNESS: The patient is a pleasant 75-year-old woman, who was admitted to the hospital on April 14 after presenting to the emergency room with right foot and leg pain. She was noted to have a diabetic foot infection as well as hyperkalemia and elevated kidney function tests. Consultation is requested regarding the patient's anemia. The patient denies any GI symptoms. She has not noted any change in her bowel movements, but is legally blind. She has no complaints of abdominal pain. She does take an aspirin on a daily basis. She has never undergone colonoscopy because of fear of the procedure. Her blood count on admission showed a hematocrit of 28.6, which has decreased slightly to 25 over the past 4 days. Iron studies have shown a saturation of 11% and stool occult blood testing has been negative. She denies any upper GI symptoms. PAST MEDICAL HISTORY: 1. Hypertension. 2. Hyperlipidemia. 3. Diabetes mellitus. 4. Foot infection as above. 5. Acute on chronic kidney disease. CURRENT MEDICATIONS: Her current medication list is reviewed in the chart. ALLERGIES: THERE ARE NONE REPORTED. FAMILY HISTORY: She denies GI malignancy. SOCIAL HISTORY: There is no current tobacco, alcohol, or substance abuse. REVIEW OF SYSTEMS: SKIN: No pruritus. HEENT: Negative. CARDIOPULMONARY: She denies shortness of breath or chest pain. GASTROINTESTINAL: As above. GENITOURINARY: Negative. NEUROPSYCHIATRIC: Negative. PHYSICAL EXAMINATION: GENERAL: Shows a pleasant female, lying comfortably in bed. VITAL SIGNS: Reviewed in electronic medical record and are stable. SKIN: Anicteric. HEENT: Shows no scleral icterus. NECK: Without lymphadenopathy or thyromegaly. LUNGS: Clear. HEART: Shows a regular rate and rhythm. S1, S2. No murmur. ABDOMEN: Soft without focal masses or tenderness. Bowel sounds are present. No organomegaly is noted. EXTREMITIES: Show gangrenous changes to her right great toe. IMPRESSION: Anemia. She does appear to have a component of iron deficiency given her iron saturation of 11%. Her stool occult blood testing is negative and she does not appear to have any active GI bleeding at this time. She has been using aspirin on a regular basis at home and may have some mild gastritis from this. I would recommend a course of treatment with famotidine to cover any component of gastritis after her acute problems of kidney injury and gangrenous toe are resolved. She could consider elective outpatient colonoscopy. This was discussed with the patient. Thanks for asking me to see her. I will follow her in the hospital with you. MD BENJA Zapata/NEENA / [phone]
[2020-04-19] MEDS: Acetaminophen 325 MG TABLET 650 MG PO (23:05)
[2020-04-20] VITALS (10 sets, daily range): BP systolic 155–192; BP diastolic 62–86; PULSE 75–99; RESP 16–19; TEMP 36.4–38.2; O2SAT 91–98
--- NOTE | 2020-04-20 | CA_ITS ---
Acquisition Time: 2020-04-21 09:02:41 Total Exercise Time: 00:02:00 Test Indications: PREOP Medications: SEE CHART Protocol: LEXISCAN Max HR: 110 BPM 76% of Pred: 144 BPM Max BP: 156/068 mmHG Max Work Load: 1.0 METS Pharmacological stress test using Lexiscan while lying down. Pt denies any anginal sx. EKG with occ. PVC's, non-diagnostic for ischemia. Nuclear images to follow. Normotensive response to test. Test reviewed with Dr. Martin. Referred By: Carson Almeida Overread By: Andrew Bianchi
[2020-04-20] MEDS: Acetaminophen 325 MG TABLET 650 MG PO ×3 (01:59→20:00)
[2020-04-20 06:53] LABS: Anion Gap 10 (12-20); Blood Urea Nitrogen 34 mg/dL (9-16); Calcium 7.3 mg/dL (8.4-10.2); Carbon Dioxide 22 mmol/L (22-29); Chloride 111 mmol/L (96-108); Creatinine Clr Calc Pharmacy 20.7; Estimated Glomerular Filt Rate 18; Glucose Random 142 mg/dL (60-115); Potassium 4.3 mmol/L (3.3-5.1); Sodium 139 mmol/L (135-145)
[2020-04-20 07:34] LABS: Glucose, Whole Blood 126 mg/dL (60-115)
[2020-04-20] MEDS: Piperacillin Sodium/Tazobactam 2.25 GM in 0.9 % Sodium Chloride 50 ML IV ×2 (08:46→15:43)
[2020-04-20] MEDS: 0.9 % Sodium Chloride Flush 3 ML SYRINGE IVFLUSH (08:46)
[2020-04-20] MEDS: glyBURIDE 5 MG TABLET PO (08:48)
[2020-04-20] MEDS: Calcium + Vitamin D 250 MG TABLET 500 MG PO (08:48)
[2020-04-20] MEDS: Aspirin 81 MG TAB.CHEW PO (08:50)
[2020-04-20] MEDS: Ascorbic Acid 500 MG TABLET PO (08:50)
[2020-04-20] MEDS: Atropine Sulfate 1 % Ophth Sol 2 ML BOTTLE 1 DROP EYE-LEFT ×3 (08:52→21:14)
[2020-04-20] MEDS: prednisoLONE Acetate 1 % Oph Susp 5 ML DRPBTL 1 DROP EYE-LEFT (08:53)
[2020-04-20] MEDS: Lidocaine 4 % Patch ADH..PATCH 2 PATCH TRANSDERMA (08:57)
[2020-04-20] MEDS: 0.9 % Sodium Chloride 1,000 ML 100 ML IVCONT ×2 (10:49→21:14)
[2020-04-20 11:23] LABS: Glucose, Whole Blood 148 mg/dL (60-115)
--- NOTE | 2020-04-20 11:35 | PM.CNCAR ---
History of Present Illness History of Present Illness Date of Service: 04/20/20 Requesting physician: Michaelle Knapp Chief complaint: Preoperative cardiovascular risk assessment Narrative: Pleasant 75-year-old female with background history of peripheral vascular disease, diabetes, kidney disease who presented with nonhealing ulcer on lower extremity and underwent angiography showing severe peripheral vascular disease. She is being considered for aortobifem bypass surgery by Dr. Blood. We have been asked to assess her for perioperative cardiovascular risk. She is quite limited in her day-to-day life and does not do exercise regularly. She also is legally blind which limits her. She is denying any chest discomfort shortness of breath at lower level activities that she does. Blood pressure is high. [facility] Past Medical History Medical History Blind Diabetes Family History Family history: reviewed and not pertinent Social History Social History Household Members: None Housing: Condominium Do you presently have visiting nurse or other home services: No Alcohol intake: never Smoking Status: Former smoker Use of substances other than those prescribed or required for medical reasons: No Currently Displaying Signs/Symptoms of Drug Intoxication Withdrawal: No Have you been hit, kicked, punched, or otherwise hurt by someone within the past year? If so, by whom?: No Do you feel safe in your current relationship?: No Current Relationship Is there a partner from a previous relationship who is making you feel unsafe now?: No Are you made to feel afraid or neglected: No Advance Directives: No Do you have thoughts of harming others: None Do you have a plan to hurt others: No Plan Recently lost weight without trying: Yes service: No Current occupational status: disabled Meds Allergies Allergy/AdvReac Type Severity Reaction Status Date / Time No Known Allergies Allergy Verified 04/14/20 20:37 [No Known Allergies*] Active Medications: Current Medications Generic Name Dose Route Start Last Admin Trade Name Freq PRN Reason Stop Dose Admin Acetaminophen 650 mg 04/14/20 23:06 04/20/20 08:57 Acetaminophen 325 Mg Tablet PO 650 mg Q6H PRN Administration Pain, Mild (Pain Scale 1-3) Amlodipine Besylate 5 mg 04/18/20 14:15 04/20/20 09:12 Amlodipine Besylate 5 Mg Tablet PO Not Given DAILY [facility] Protocol Ascorbic Acid 500 mg 04/17/20 13:30 04/20/20 08:50 Ascorbic Acid 500 Mg Tablet PO 500 mg DAILY RAUL Administration Aspirin 81 mg 04/15/20 09:00 04/20/20 08:50 Aspirin 81 Mg Tab.Chew PO 81 mg DAILY RAUL Administration Aspirin 81 mg 04/20/20 09:00 04/20/20 09:13 Aspirin 81 Mg Tab.Chew PO Not Given DAILY [facility] Atropine Sulfate 1 drop 04/15/20 09:00 04/20/20 08:52 Atropine Sulfate 1 % Ophth Jacki 2 Ml Bottle EYE-LEFT 1 drop TID [facility] Administration Calcium Carbonate/Cholecalciferol 500 mg 04/17/20 13:30 04/20/20 08:48 Calcium + Vitamin D 250 Mg Tablet PO 500 mg DAILY [facility] Administration Clopidogrel Bisulfate 75 mg 04/20/20 09:00 04/20/20 09:13 Clopidogrel Bisulfate 75 Mg Tablet PO Not Given DAILY [facility] Docusate Sodium 100 mg 04/15/20 09:00 04/20/20 09:12 Docusate Sodium 100 Mg Capsule PO Not Given BID [facility] Famotidine 20 mg 04/19/20 21:00 04/20/20 09:13 Famotidine 20 Mg Tablet PO Not Given BID [facility] Glyburide 5 mg 04/15/20 08:00 04/20/20 08:48 Glyburide 5 Mg Tablet PO 5 mg BIDWM [facility] Administration Piperacillin Sod/Tazobactam 50 mls @ 100 mls/hr 04/15/20 00:00 04/20/20 10:20 Sod 2.25 gm/ Sodium Chloride IV Infused Q8H [facility] Infusion Sodium Chloride 1,000 mls @ 100 mls/hr 04/18/20 09:30 04/20/20 10:49 Ns IVCONT 100 mls/hr .Q10H [facility] Administration Insulin Human Lispro 0 unit 04/15/20 07:30 04/20/20 07:38 Insulin Lispro 100 Unit/Ml 3 Ml Vial SUBCUT Not Given QIDACHS [facility] Protocol Lidocaine 2 patch 04/15/20 09:15 04/20/20 08:57 Lidocaine 4 % Patch Adh..Patch TRANSDERMA 2 patch DAILY RAUL Administration Protocol Pharmacy Consult 1 each 04/14/20 23:02 Consult Rx Vancomycin Dosing MISCELLANE DAILY PRN Consult order Prednisolone Acetate 1 drop 04/15/20 09:00 04/20/20 08:53 Prednisolone Acetate 1 % Oph Susp 5 Ml Drpbtl EYE-LEFT 1 drop DAILY RAUL Administration Senna 17.2 mg 04/14/20 23:06 Sennosides 8.6 Mg Tablet PO BEDTIME PRN Constipation Sodium Chloride 3 ml 04/15/20 00:00 04/20/20 08:46 0.9 % Sodium Chloride Flush 3 Ml Syringe IVFLUSH 3 ml QSHIFT RAUL Administration Timolol Maleate 1 drop 04/15/20 09:00 04/20/20 09:13 Timolol Maleate Xe 0.25 % Gel 5 Ml Drbtl EYE-RIGHT Not Given DAILY [facility] Home Medications Medication Instructions Recorded Confirmed Last Taken Type aspirin 81 mg PO DAILY 04/15/20 04/15/20 Unknown History atropine 1 drp BID 04/15/20 04/15/20 Unknown History glyburide 1 tab PO BID 04/15/20 04/15/20 Unknown History prednisolone acetate 1 drp DAILY 04/15/20 04/15/20 Unknown History timolol maleate 1 drp OPHTHALMIC-RIGHT DAILY 04/15/20 04/15/20 Unknown History Physical Exam Vital Signs: Vital Signs: Last Vital Signs Temp 98.2 F 04/20/20 09:09 Pulse 99 04/20/20 09:09 Resp 18 04/20/20 09:09 BP 192/66 H 04/20/20 09:09 Pulse Ox 95 04/20/20 09:09 Body Mass Index 32.3 GENERAL APPEARANCE: in no acute distress, legally blind. HEENT: unremarkable. HEAD: normocephalic, atraumatic. NECK/THYROID: no carotid bruit, no jugular venous distention. SKIN: no suspicious lesions, warm and dry. HEART: no murmurs, regular rate and rhythm, S1, S2 normal. LUNGS: clear to auscultation bilaterally. ABDOMEN: normal, bowel sounds present, soft, nontender, nondistended. EXTREMITIES: no clubbing, cyanosis, or edema. NEUROLOGIC: nonfocal, alert and oriented. Line PSYCH: Depressed. Results Labs and Meds Result diagrams: 04/18/20 00:16 04/20/20 05:33 Lab results: Laboratory Results - last 24 hr 04/19/20 04/19/20 04/20/20 16:08 20:10 05:33 Sodium 139 Potassium 4.3 Chloride 111 H Carbon Dioxide 22 Anion Gap 10 L BUN 34 H Creatinine 2.61 H Estim Creat Clear Calc 20.7 Estimated GFR 18 POC Glucose 81 183 H Random Glucose 142 H D Calcium 7.3 L D 04/20/20 04/20/20 07:21 11:19 Sodium Potassium Chloride Carbon Dioxide Anion Gap BUN Creatinine Estim Creat Clear Calc Estimated GFR POC Glucose 126 H 148 H Random Glucose Calcium Assessment and Plan (1) PAD (peripheral artery disease): Status: Acute (2) Essential hypertension: Status: Acute (3) Preoperative cardiovascular examination: Status: Acute 75-year-old female who is being considered for aortobifem bypass surgery for peripheral vascular disease and nonhealing wound. She is quite limited in her day-to-day life. We will start with echocardiography to assess LV for any structural issues. She needs a pharmacologic stress test before we proceed with surgery. Blood pressure is quite elevated. Her kidney function is abnormal at baseline. I think amlodipine should be increased to 10 mg. She can be started on carvedilol 3.125 mg twice a day if amlodipine does not bring the blood pressure down. Due to advanced kidney disease I would not use a thiazide diuretic. Lasix may help her in this situation for blood pressure control. We will follow along with you and help risk stratify her based on the above testing. Thank you for allowing me to participate in the care of your patient. Please feel free to contact me if you have any questions.
--- NOTE | 2020-04-20 14:06 | P.PNVS_ITS ---
Subjective Subjective Date of Service: 04/20/20 Patient reports: no new complaints and feels better Interval history: 75-year-old female postop day 1 status post endovascular intervention of left iliac artery. No postprocedure issues. Doing relatively well. Relatively comfortable. She was already seen this morning by Cardiology. As I was seeing her Nephrology was seeing her as well. Physical Exam Vital Signs: Vital Signs: Last Vital Signs Temp 98.6 F 04/20/20 12:00 Pulse 89 04/20/20 12:00 Resp 18 04/20/20 09:09 BP 180/76 H 04/20/20 12:00 Pulse Ox 96 04/20/20 12:00 Body Mass Index 32.3 Const: General: cooperative, healthy appearing and no acute distress Orientation/consciousness: oriented to person, oriented to place and oriented to time HENMT: Head: Yes normal to inspection Neck: Carotids: no bruits Chest: Chest palpation & inspection: normal inspection of the chest Resp: Effort & Inspection: normal respiratory effort and able to speak in complete sentences Auscultation: clear to auscultation bilaterally Cardio: Rate: regular rate Heart sounds: S1 normal heart sound present and S2 normal heart sound present Peripheral pulses: dorsalis pedis present (Bilateral signals only) GI: Inspection: Yes normal to inspection Skin: General skin exam: no rashes or lesions noted Wounds: no wounds Neuro: General: oriented to person, oriented to place, oriented to time and CN's II-XI intact bilaterally Extrem: General: Yes normal to inspection, Yes full ROM and Yes no clubbing, cyanosis or edema Psych: Appearance: grossly normal and well kempt Speech and movement: Normal speech and movement present Affect: normal affect Progress Note: A&P Assessment and plan (1) PAD (peripheral artery disease): Status: Acute Assessment and Plan: Patient is doing well from endovascular standpoint she will require a femoral to femoral bypass (left to right). I did spend a fair amount of time discussing this procedure with the patient and a laying her fears. We will obtain formal cardiac risk stratification. Based on that will proceed. Her right foot wound is stable at the current time. Thank you for allowing us to assist in her care. Fall Risk Details Current Medications: Current Medications Generic Name Dose Route Start Last Admin Trade Name Freq PRN Reason Stop Dose Admin Acetaminophen 650 mg 04/14/20 23:06 04/20/20 08:57 Acetaminophen 325 Mg Tablet PO 650 mg Q6H PRN Administration Pain, Mild (Pain Scale 1-3) Amlodipine Besylate 5 mg 04/18/20 14:15 04/20/20 09:12 Amlodipine Besylate 5 Mg Tablet PO Not Given DAILY [facility] Protocol Ascorbic Acid 500 mg 04/17/20 13:30 04/20/20 08:50 Ascorbic Acid 500 Mg Tablet PO 500 mg DAILY RAUL Administration Aspirin 81 mg 04/15/20 09:00 04/20/20 08:50 Aspirin 81 Mg Tab.Chew PO 81 mg DAILY [facility] Administration Atropine Sulfate 1 drop 04/15/20 09:00 04/20/20 08:52 Atropine Sulfate 1 % Ophth Jacki 2 Ml Bottle EYE-LEFT 1 drop TID [facility] Administration Calcium Carbonate/Cholecalciferol 500 mg 04/17/20 13:30 04/20/20 08:48 Calcium + Vitamin D 250 Mg Tablet PO 500 mg DAILY [facility] Administration Clopidogrel Bisulfate 75 mg 04/20/20 09:00 04/20/20 09:13 Clopidogrel Bisulfate 75 Mg Tablet PO Not Given DAILY [facility] Docusate Sodium 100 mg 04/15/20 09:00 04/20/20 09:12 Docusate Sodium 100 Mg Capsule PO Not Given BID [facility] Famotidine 20 mg 04/19/20 21:00 04/20/20 09:13 Famotidine 20 Mg Tablet PO Not Given BID [facility] Glyburide 5 mg 04/15/20 08:00 04/20/20 08:48 Glyburide 5 Mg Tablet PO 5 mg BIDWM [facility] Administration Piperacillin Sod/Tazobactam 50 mls @ 100 mls/hr 04/15/20 00:00 04/20/20 10:20 Sod 2.25 gm/ Sodium Chloride IV Infused Q8H [facility] Infusion Sodium Chloride 1,000 mls @ 100 mls/hr 04/18/20 09:30 04/20/20 10:49 Ns IVCONT 100 mls/hr .Q10H [facility] Administration Insulin Human Lispro 0 unit 04/15/20 07:30 04/20/20 12:51 Insulin Lispro 100 Unit/Ml 3 Ml Vial SUBCUT Not Given QIDACHS [facility]PL[facility] Protocol Lidocaine 2 patch 04/15/20 09:15 04/20/20 08:57 Lidocaine 4 % Patch Adh..Patch TRANSDERMA 2 patch DAILY RAUL Administration Protocol Pharmacy Consult 1 each 04/14/20 23:02 Consult Rx Vancomycin Dosing MISCELLANE DAILY PRN Consult order Prednisolone Acetate 1 drop 04/15/20 09:00 04/20/20 08:53 Prednisolone Acetate 1 % Oph Susp 5 Ml Drpbtl EYE-LEFT 1 drop DAILY RAUL Administration Senna 17.2 mg 04/14/20 23:06 Sennosides 8.6 Mg Tablet PO BEDTIME PRN Constipation Sodium Chloride 3 ml 04/15/20 00:00 04/20/20 08:46 0.9 % Sodium Chloride Flush 3 Ml Syringe IVFLUSH 3 ml QSHIFT RAUL Administration Timolol Maleate 1 drop 04/15/20 09:00 04/20/20 09:13 Timolol Maleate Xe 0.25 % Gel 5 Ml Drbtl EYE-RIGHT Not Given DAILY RAUL Time Spent With Patient Time: Total time spent is greater than 50% in coordination of care (as documented) at patient's floor/unit and/or counseling patient: Time with patient: 15 - 24 minutes
--- NOTE | 2020-04-20 16:27 | P.PNIM_ITS ---
Subjective Subjective Date of Service: 04/21/20 Interval History: Patient refusing to take nifedipine since she feels aspirin 325 mg was keeping her blood pressure within normal range, patient is refusing Plavix since she feel bed aspirin 325 mg is enough for her, refusing Pepcid, patient denies any headache or dizziness, noted to have elevated blood pressure 192/66 this morning. General no headache, no dizziness ,no chills. CVS no chest pain, no palpitation. Respiratory no cough, no shortness of breath Gastrointestinal no nausea, no vomiting, no abdominal pain Physical Exam Vital Signs: Vital Signs: Last Vital Signs Temp 100.7 F H 04/20/20 15:48 Pulse 89 04/20/20 15:48 Resp 18 04/20/20 15:48 BP 174/74 H 04/20/20 15:48 Pulse Ox 95 04/20/20 15:48 Body Mass Index 32.3 General patient is legally blind,no acute distress. Neck is supple no JVD. CVS regular rate rhythm, Respiratory lungs clear to auscultation, no respiratory distress, no wheeze, no rhonchi. Gastrointestinal abdomen soft, nontender, bowel sounds audible, no guarding , no rigidity. Extremities right great toe dry gangrene, no drainage, no redness and swelling on dorsum of foot Neuro nonfocal Skin no rash Objective Data Current Medications Generic Name Dose Route Start Last Admin Trade Name Freq PRN Reason Stop Dose Admin Acetaminophen 650 mg 04/14/20 23:06 04/20/20 08:57 Acetaminophen 325 Mg Tablet PO 650 mg Q6H PRN Administration Pain, Mild (Pain Scale 1-3) Amlodipine Besylate 5 mg 04/18/20 14:15 04/20/20 09:12 Amlodipine Besylate 5 Mg Tablet PO Not Given DAILY [facility] Protocol Ascorbic Acid 500 mg 04/17/20 13:30 04/20/20 08:50 Ascorbic Acid 500 Mg Tablet PO 500 mg DAILY RAUL Administration Aspirin 81 mg 04/15/20 09:00 04/20/20 08:50 Aspirin 81 Mg Tab.Chew PO 81 mg DAILY RAUL Administration Atropine Sulfate 1 drop 04/15/20 09:00 04/20/20 15:44 Atropine Sulfate 1 % Ophth Jacki 2 Ml Bottle EYE-LEFT 1 drop TID RAUL Administration Calcium Carbonate/Cholecalciferol 500 mg 04/17/20 13:30 04/20/20 08:48 Calcium + Vitamin D 250 Mg Tablet PO 500 mg DAILY RAUL Administration Clopidogrel Bisulfate 75 mg 04/20/20 09:00 04/20/20 09:13 Clopidogrel Bisulfate 75 Mg Tablet PO Not Given DAILY [facility] Docusate Sodium 100 mg 04/15/20 09:00 04/20/20 09:12 Docusate Sodium 100 Mg Capsule PO Not Given BID [facility] Famotidine 20 mg 04/19/20 21:00 04/20/20 09:13 Famotidine 20 Mg Tablet PO Not Given BID [facility] Glyburide 5 mg 04/15/20 08:00 04/20/20 08:48 Glyburide 5 Mg Tablet PO 5 mg BIDWM RAUL Administration Piperacillin Sod/Tazobactam 50 mls @ 100 mls/hr 04/15/20 00:00 04/20/20 15:43 Sod 2.25 gm/ Sodium Chloride IV 100 mls/hr Q8H RAUL Administration Sodium Chloride 1,000 mls @ 100 mls/hr 04/18/20 09:30 04/20/20 10:49 Ns IVCONT 100 mls/hr .Q10H RAUL Administration Insulin Human Lispro 0 unit 04/15/20 07:30 04/20/20 12:51 Insulin Lispro 100 Unit/Ml 3 Ml Vial SUBCUT Not Given QIDACHS [facility] Protocol Lidocaine 2 patch 04/15/20 09:15 04/20/20 08:57 Lidocaine 4 % Patch Adh..Patch TRANSDERMA 2 patch DAILY RAUL Administration Protocol Pharmacy Consult 1 each 04/14/20 23:02 Consult Rx Vancomycin Dosing MISCELLANE DAILY PRN Consult order Prednisolone Acetate 1 drop 04/15/20 09:00 04/20/20 08:53 Prednisolone Acetate 1 % Oph Susp 5 Ml Drpbtl EYE-LEFT 1 drop DAILY [facility] Administration Senna 17.2 mg 04/14/20 23:06 Sennosides 8.6 Mg Tablet PO BEDTIME PRN Constipation Sodium Chloride 3 ml 04/15/20 00:00 04/20/20 15:42 0.9 % Sodium Chloride Flush 3 Ml Syringe IVFLUSH Not Given QSHIFT [facility] Timolol Maleate 1 drop 04/15/20 09:00 04/20/20 09:13 Timolol Maleate Xe 0.25 % Gel 5 Ml Drbtl EYE-RIGHT Not Given DAILY [facility] Labs CBC & Chem 7: 04/21/20 04:59 04/21/20 04:59 Microbiology Microbiology Results: Microbiology 04/18/20 00:12 Blood - Venous Blood Culture - Preliminary No growth after 48 hours. 04/18/20 00:16 Blood - Venous Blood Culture - Preliminary No growth after 48 hours. 04/14/20 21:49 Blood - Venous Blood Culture - Final No growth after 5 days. 04/14/20 21:49 Blood - Venous Blood Culture - Final No growth after 5 days. 04/14/20 Unknown Urine clean catch - Clean Catch Midstream Urine Culture - Final Klebsiella pneumoniae Assessment and Plan (1) Diabetic foot infection: Status: Acute (2) Acute kidney injury: Status: Acute (3) Essential hypertension: Status: Acute (4) PAD (peripheral artery disease): Status: Acute (5) Osteomyelitis of great toe of right foot: Status: Acute Assessment and Plan: 75-year-old female with a past medical history of hypertension, hyperlipidemia, diabetes, legally blind, lives alone presented to the hospital with a chief complaint of right lower extremity pain. Diabetic right foot infection/peripheral arterial disease Continue IV Zosyn renally dosed, being followed by Dr. Blood is scheduled for left to right femoral to femorral bypass on Friday , patient is status post successful plasty of left external iliac artery yesterday, continue pain medication, blood cultures x2 negative, patient started on Plavix however she is refusing to take Plavix and demanding to be placed on aspirin 325 mg daily patient has been given explanation for need for dual anti-platelet agent with peripheral arterial disease but she continued to refuse Patient being followed by Cardiology and Nephrology for preop clearance for upcoming bypass surgery. UTI urine culture grew Klebsiella pneumonia resistant to ampicillin will add IV ceftriaxone Uncontrolled hypertension patient is refusing antihypertensive medications she feels aspirin alone is enough to take care of her blood pressure patient has been inform about the risk of persistent hypertension including CVA, cardiac disease and hemorrhage. KRYSTYNA on CKD. History of chronic kidney disease with baseline creatinine around 2 most consistent with diabetic nephropathy, creatinine trending down Diabetic nephropathy improving creatinine trending down but slight bump today since yesterday, will follow renal function closely since patient underwent angiogram yesterday, being followed closely by Dr. Carey Avoid nephrotoxins. Anemia baseline hematocrit not available History of chronic anemia noted to have drop in hemoglobin, stool guaiac came back negative patient seen by Dr. Diego he recommended Pepcid with possibility of gastritis with chronic use of aspirin And recommend outpatient colonoscopy, iron studies consistent with iron deficiency anemia due to low iron saturation , will follow CBC patient refusing to take Pepcid, patient has been inform about need for use of Pepcid she understands but continue to refuse Hyperkalemia. Resolved with kayexalate Back pain. Chronic with no acute exacerbation continue lidocaine and oxycodone Diabetes Blood sugars stable continue ADA diet and insulin sliding scale at home patient takes glyburide twice daily will reduce dose due to acute renal failure to glyburide once daily. Legally Blind continue Home eye drops. DVT prophylaxis on mechanical device avoid anticoagulation due to low H&H
[2020-04-20 16:32] LABS: Glucose, Whole Blood 74 mg/dL (60-115)
[2020-04-20] MEDS: cefTRIAXone sodium 1 GM in 0.9 % Sodium Chloride 50 ML IV (17:46)
--- NOTE | 2020-04-20 18:48 | PC.NURSE ---
Patient underwent nuclear stress test today, resting images tomorrow morning. Patient continued to refuse prescribed medications, including amlodipine, Plavix, and pepcid. Manual BP elevated in the morning, patient reporting that aspirin helps with BP. Patient affixed to c/o leg pain and only requests aspirin for relief. Hospitalist educated patient extensively and vascular surgeon notified of patient's medication non-compliance. Some BP improvement on own, now in the 170s systolic. Patient on continuous fluids and abx. No further complaints or complications.
[2020-04-20 20:05] LABS: Glucose, Whole Blood 125 mg/dL (60-115)
--- NOTE | 2020-04-20 20:07 | P.PNNP_ITS ---
Subjective Subjective Date of Service: 04/20/20 Interval history: Seen and examined. Events noted Physical Exam Vital Signs: Vital Signs: Last Vital Signs Temp 97.6 F 04/20/20 19:38 Pulse 75 04/20/20 19:38 Resp 18 04/20/20 19:38 BP 155/62 H 04/20/20 19:38 Pulse Ox 95 04/20/20 19:38 Body Mass Index 32.3 Const: General: cooperative, no acute distress and awake Orientation/consciousness: oriented to person and oriented to place Lara itations: no limitations HENMT: Head: Yes normal to inspection, Yes normocephalic and Yes atraumatic Ears: external ears normal General nose exam: Normal external nose present Face and sinus: Yes normal facial exam Mouth: Normal oral and palatal mucosa present Throat: Yes posterior oropharynx normal Eyes: General: appearance normal, both eyes and all related structures Periorbital: periorbital findings normal Eyelids: Yes eyelids normal Conjunctivae: conjunctivae normal Sclerae: sclerae normal Corneas: corneas normal Pupils: Equal, round and reactive pupils present Neck: Neck: Yes full ROM, Yes no lymphadenopathy, Yes no meningeal signs, Yes trachea midline, Yes supple and Yes no JVD Chest: Chest palpation & inspection: normal inspection of the chest and normal palpation of entire chest wall Resp: Effort & Inspection: normal respiratory effort and able to speak in complete sentences Auscultation: clear to auscultation bilaterally Cardio: Rate: regular rate and tachycardic Rhythm: regular rhythm Heart sounds: S1 normal heart sound present, S2 normal heart sound present and no murmurs Peripheral pulses: other (Unable to plapate DP, PT bilaterally) GI: Inspection: Yes normal to inspection Palpation (GI): Soft to palpation, nontender, no guarding, not rigid and No hepatosplenomegaly present : General: Yes no CVA tenderness Back/Spine/Pelvis: Back: no CVA tenderness Cervical Spine: normal cervical lordosis Thoracic/Lumbar Spine: thoracic and lumbar spine normal to inspection and paraspinal muscle tenderness bilaterally in the mid lumbar and in the lower lumbar Skin: Other: Improving erythema of the Right foot and less tenderness to palpation. No drainage. General skin exam: no rashes or lesions noted Lesions: no lesions Rashes: other (Right great toe infection) Wounds: no wounds Neuro: General: oriented to person, oriented to place and no meningeal signs Cranial nerves: Yes CN's II-XII intact bilaterally and Yes Equal, round and reactive pupils present Cognition (Neuro): normal cognition Speech: Abnormal speech present Motor exam (neuro): 5/5 motor strength present throughout Extrem: Other: great toe black tip,mild proximal cellulitis Psych: Appearance: well kempt Mental Status: mental status grossly normal Speech and movement: Normal speech and movement present Affect: normal affect Attitude: cooperative Thought process: Normal thought process present Thought content: Normal thought content present Objective Data Labs CBC & Chem 7: 04/18/20 00:16 04/20/20 05:33 Labs: Laboratory Results - last 24 hr 04/19/20 04/20/20 04/20/20 20:10 05:33 07:21 Sodium 139 Potassium 4.3 Chloride 111 H Carbon Dioxide 22 Anion Gap 10 L BUN 34 H Creatinine 2.61 H Estim Creat Clear Calc 20.7 Estimated GFR 18 POC Glucose 183 H 126 H Random Glucose 142 H D Calcium 7.3 L D 04/20/20 04/20/20 04/20/20 11:19 16:24 19:55 Sodium Potassium Chloride Carbon Dioxide Anion Gap BUN Creatinine Estim Creat Clear Calc Estimated GFR POC Glucose 148 H 74 125 H Random Glucose Calcium Microbiology Microbiology Results: Microbiology 04/18/20 00:12 Blood - Venous Blood Culture - Preliminary No growth after 48 hours. 04/18/20 00:16 Blood - Venous Blood Culture - Preliminary No growth after 48 hours. 04/14/20 21:49 Blood - Venous Blood Culture - Final No growth after 5 days. 04/14/20 21:49 Blood - Venous Blood Culture - Final No growth after 5 days. 04/14/20 Unknown Urine clean catch - Clean Catch Midstream Urine Culture - Final Klebsiella pneumoniae Assessment & Plan Assessment and plan (1) Osteomyelitis of great toe of right foot: Status: Acute Assessment and Plan: . (2) Acute kidney injury: Problem details: 1. KRYSTYNA: Scr decr with ongoing tx of infection/dehydration and now IV Contrast load makes her at risk for superimposed WOODY KRYSTYNA insult 2. CKD 3b: bsl SCr 2.0 range from ( 2018); most c/w DN but needs sero/urine studies to fully evaluate 3. Anemia: Fe and epo def; need to r/o myeloma 4. MBD of CKD 5. Cellulitis/osteo and ischemic leg now being scheduled for LE vascular bypass 6. DM 7. HTN labile REC: sero/urine studies as ordered; avoid NToxins; po Fe ( avoid IV Fe in setting of infection) will follow with team britta; she will need close renal f/u as outpt Status: Acute Time Spent With Patient Time: Total time spent is greater than 50% in coordination of care (as documented) at patient's floor/unit and/or counseling patient:
[2020-04-21] VITALS (8 sets, daily range): BP systolic 160–190; BP diastolic 62–79; PULSE 97–108; RESP 18–20; TEMP 36.2–38.8; O2SAT 92–96
[2020-04-21] MEDS: Piperacillin Sodium/Tazobactam 2.25 GM in 0.9 % Sodium Chloride 50 ML IV ×2 (00:26→07:33)
[2020-04-21] MEDS: Acetaminophen 325 MG TABLET 650 MG PO ×2 (04:16→19:59)
--- NOTE | 2020-04-21 05:13 | PC.NURSE ---
pt febrile throughout shift despite Tylenol, heart rate increased to 100's, upon 4am assessment pt found to be hypoxic with 02 sat 86% on room air, pt placed on 2l nc wiht good effect. made aware, new order for BC and lactic acid. pt getting NS at 100ml/hr, ? another covid swab, nonew order at this time. pt resting in bed, call talamantes within reach, high fall risk precautions in place.
[2020-04-21 05:22] LABS: MANUAL DIFF FLAG NO
[2020-04-21 05:24] LABS: Basophils Absolute Auto 0.1 X10*3/uL (0.0-0.2); Basophils Percent Auto 0.4 % (0-2); Eosinophils Absolute Auto 0.2 X10*3/uL (0.0-0.4); Eosinophils Percent Auto 1.4 % (0-4); Hematocrit 22.3 % (37-47); Imm Gran Abs Auto 0.05 X10*3/uL (0.00-0.03); Imm Gran Pct Auto 0.4 % (0.0-0.4); Lymphocytes Absolute Auto 1.4 X10*3/uL (1.2-4.9); Lymphocytes Percent Auto 11.4 % (20-40); Mean Corpuscular HGB Conc 30.5 g/dl (31.0-35.0); Mean Corpuscular Hemoglobin 27.6 pg (27.0-33.0); Mean Corpuscular Volume 90.7 fL (80-98); Mean Platelet Volume 10.2 fL (9.4-12.3); Monocytes Percent Auto 8.1 % (2-11); Neutrophils Absolute Auto 9.8 X10*3/uL (2.0-8.3); Neutrophils Percent Auto 78.3 % (45-73); Platelet Count 250 X10*3/uL (160-400); Red Blood Count 2.46 X10*6/uL (4.20-5.50); Red Cell Distribution Width 12.7 % (11.0-16.0); White Blood Count 12.5 X10*3/uL (4.8-10.8)
[2020-04-21 05:34] LABS: Hemoglobin 6.8 g/dl (12.0-16.0)
[2020-04-21 05:41] LABS: Lactic Acid 0.6 mmol/L (0.5-2.0)
[2020-04-21 05:45] LABS: Anion Gap 15 (12-20); Blood Urea Nitrogen 32 mg/dL (9-16); Calcium 7.6 mg/dL (8.4-10.2); Carbon Dioxide 17 mmol/L (22-29); Chloride 112 mmol/L (96-108); Creatinine Clr Calc Pharmacy 18.8; Estimated Glomerular Filt Rate 16; Glucose Random 132 mg/dL (60-115); Sodium 140 mmol/L (135-145)
[2020-04-21 07:29] LABS: Glucose, Whole Blood 108 mg/dL (60-115)
[2020-04-21] MEDS: 0.9 % Sodium Chloride 1,000 ML 100 ML IVCONT (07:33)
[2020-04-21] MEDS: Calcium + Vitamin D 250 MG TABLET 500 MG PO (07:37)
[2020-04-21] MEDS: Lidocaine 4 % Patch ADH..PATCH 2 PATCH TRANSDERMA (07:37)
[2020-04-21] MEDS: glyBURIDE 5 MG TABLET PO (07:38)
[2020-04-21] MEDS: Aspirin 81 MG TAB.CHEW PO (07:38)
[2020-04-21] MEDS: Ascorbic Acid 500 MG TABLET PO (07:38)
--- NOTE | 2020-04-21 09:00 | CA_ITS ---
Transthoracic Echocardiogram Patient (Last, First, Middle): Vesta Vences, Gender: Female Date of : 1945 Age: 75 Procedure Date: 04/21/2020 Procedure Type: Transthoracic Echocardiogram Location: [facility] [place] Height: 167.64 cm Weight: 90.72 kg BSA: 2.00 m2 Heart Rate: bpm BP: 192 / 66 mmHg Environmental Adviser: Referring MD: Mateo Blood MD Symptoms: cad history Study Quality: Good Conclusions: - The visually estimated ejection fraction is between 60-65%. - Elevated filling pressures. - Normal right ventricular cavity size and systolic function. - There is moderate mitral valve regurgitation. Findings Left Ventricle Normal left ventricular size and systolic function. There is moderately increased left ventricular wall thickness. The visually estimated ejection fraction is between 60-65%. There is no evidence of regional wall motion abnormalities. Abnormal diastolic function is noted. Spectral Doppler is indicative of an impaired relaxation filling pattern. Elevated filling pressures. Right Ventricle Normal right ventricular cavity size and systolic function. Atria The left atrium is likely dilated. Aortic Valve The aortic valve structure and function is likely normal. There is no aortic valve stenosis. There is no aortic valve regurgitation. Mitral Valve There is moderate mitral valve regurgitation. There is no mitral valve stenosis. Posterior mitral valve leaflet appears restricted in some views. Pulmonic Valve The pulmonic valve is likely normal. Tricuspid Valve Normal tricuspid valve structure and function. There is mild tricuspid valve regurgitation. Great Vessels All visible segments of the aorta are normal in size. The visualized portions of the pulmonary artery and branches are normal. Venous The inferior vena cava is normal in size and collapses less than 50% with inspiration. Pericardium/Pleural There is no evidence of pericardial effusion. Prior Study Comparison No prior study available for comparison. Measurements 2D Linear Measurements IVSd: 1.22 0.6-0.9/0.6-1.0 cm LVIDd: 4.87 3.9-5.3/4.2-5.9 cm LVIDs: 3.02 2.0-3.6 cm LVPWd: 1.24 0.7-1.1 cm Ao Root: 3.05 2.1-3.5 cm LV Mass: 288.17 67-162/88-224 g LVOT Diam: 2.26 3.0+(-)1.3 cm Mitral Valve MV Pk E: 0.93 MV PK A: 1.05 MV Decel Time: 145.71 E/A: 0.88 E'Lateral: 0.06 E'Medial: 0.03 Decel [place]: 6.35 Aortic Valve AoV Pk Rodríguez: 1.37 AoV Mn Rodríguez: 1.04 AoV VTI: 0.32 AoV Pk Grad: 7.47 Aov Mn Grad: 4.77 LVOT LVOT Pk Rodríguez: 1.01 LVOT Mn Rodríguez: 0.68 LVOT VTI: 0.21 LVOT Pk Grad: 4.09 LVOT Mn Grad: 2.18 LVOT Diam: 2.26 LVOT Area: 4.02 Diastolic Function MV Pk E: 0.93 MV Pk A: 1.05 E/A: 0.88 E'Medial: 0.03 E' Laterial: 0.06 Tricuspid Valve TR Pk Rodríguez: 3.08 TR Pk Grad: 38.06 RA Press: 3.00 RVSP: 43.00 Great Vessels Aorta Ao Root-2D: 3.05 2.0-3.7 cm Ao Asc: 2.84 2.1-3.4 cm Pulmonary Valve PV Pk Rodríguez: 0.92 Peak PV Grad: 3.36 Updated in Other Vendor System with Status of Final Carson Almeida MD electronically signed on 04/22/2020 10:26:07 AM with status of Final
[2020-04-21] MEDS: Atropine Sulfate 1 % Ophth Sol 2 ML BOTTLE 1 DROP EYE-LEFT ×2 (10:55→16:21)
[2020-04-21] MEDS: prednisoLONE Acetate 1 % Oph Susp 5 ML DRPBTL 1 DROP EYE-LEFT (10:56)
[2020-04-21 11:42] LABS: Glucose, Whole Blood 86 mg/dL (60-115)
[2020-04-21 11:51] LABS: CDIFF Ag Negative (Negative); CDIFF Internal ctrl Dots and bkg OK (V); CDiff Toxin Negative (Negative)
--- NOTE | 2020-04-21 11:55 | MHC.CM.PN ---
ROMERO attempted to contact pts daughter, Amara ([phone]), to request a copy of pts HCP and discuss pts treatment/DC plan, however the call went to . A message was left requesting a call back. CM called [facility] ([phone]) where pt reported receiving her primary care. ROMERO was informed the pt had never been seen there but they were able to see that her PCP is Supa Hair. They also confirmed they did not see a HCP on file. ROMERO attempted to contact pts PCP, supa Hair ([phone]) however the number is out of service.
[2020-04-21] MEDS: Loperamide HCl 2 MG CAPSULE PO (12:08)
[2020-04-21] MEDS: Sodium Ferric Gluconat/Sucrose 125 MG in 0.9 % Sodium Chloride 100 ML 100 MG IV (12:08)
[2020-04-21 13:09] LABS: Immature Retic Fraction 12.5 % (3.0-15.9); Retic HGB Equivalent 27.9 pg (30.0-35.0); Reticulocyte Percent 1.2 % (0.5-1.8); Reticulocytes Absolute 0.032 X10*6/uL (0.026-0.095)
--- NOTE | 2020-04-21 13:13 | P.PNVS_ITS ---
Subjective Subjective Date of Service: 04/21/20 Patient reports: no new complaints and feels better Interval history: Patient seen and examined. No significant interval issues. She was on her way down to get stress testing this morning. Notes the lower extremity feels approximately the same. She has several questions in regards to her lower extremity. She has been fairly noncompliant. She has been refusing multiple medications including Plavix. of note, she is being treated for a UTI as well. Physical Exam Vital Signs: Vital Signs: Last Vital Signs Temp 98.8 F 04/21/20 11:04 Pulse 102 H 04/21/20 11:04 Resp 18 04/21/20 11:04 BP 190/77 H 04/21/20 11:04 Pulse Ox 95 04/21/20 11:04 Body Mass Index 32.3 Const: General: cooperative, healthy appearing and no acute distress Orientation/consciousness: oriented to person, oriented to place and oriented to time HENMT: Head: Yes normal to inspection Neck: Carotids: no bruits Chest: Chest palpation & inspection: normal inspection of the chest Resp: Effort & Inspection: normal respiratory effort and able to speak in complete sentences Auscultation: clear to auscultation bilaterally Cardio: Rate: regular rate Heart sounds: S1 normal heart sound present and S2 normal heart sound present GI: Inspection: Yes normal to inspection Skin: General skin exam: no rashes or lesions noted Wounds: wounds noted (Right great toe gangrene) Neuro: General: oriented to person, oriented to place, oriented to time and CN's II-XI intact bilaterally Extrem: General: Yes normal to inspection, Yes full ROM and Yes no clubbing, cyanosis or edema Psych: Appearance: grossly normal and well kempt Speech and movement: Normal speech and movement present Affect: normal affect Progress Note: A&P Assessment and plan (1) PAD (peripheral artery disease): Status: Acute Assessment and Plan: await cardio eval.upon echo and stress. Anemia and infection must be resolved prior to intervention. Discussed with patient the need for compliance of medications. Will follow up. Fall Risk Details Current Medications: Current Medications Generic Name Dose Route Start Last Admin Trade Name Freq PRN Reason Stop Dose Admin Acetaminophen 650 mg 04/14/20 23:06 04/21/20 04:16 Acetaminophen 325 Mg Tablet PO 650 mg Q6H PRN Administration Pain, Mild (Pain Scale 1-3) Amlodipine Besylate 5 mg 04/18/20 14:15 04/21/20 09:05 Amlodipine Besylate 5 Mg Tablet PO Not Given DAILY [facility] Protocol Ascorbic Acid 500 mg 04/17/20 13:30 04/21/20 07:38 Ascorbic Acid 500 Mg Tablet PO 500 mg DAILY [facility] Administration Aspirin 81 mg 04/15/20 09:00 04/21/20 07:38 Aspirin 81 Mg Tab.Chew PO 81 mg DAILY [facility] Administration Atropine Sulfate 1 drop 04/15/20 09:00 04/21/20 10:55 Atropine Sulfate 1 % Ophth Jacki 2 Ml Bottle EYE-LEFT 1 drop TID [facility] Administration Calcium Carbonate/Cholecalciferol 500 mg 04/17/20 13:30 04/21/20 07:37 Calcium + Vitamin D 250 Mg Tablet PO 500 mg DAILY [facility] Administration Clopidogrel Bisulfate 75 mg 04/20/20 09:00 04/21/20 09:06 Clopidogrel Bisulfate 75 Mg Tablet PO Not Given DAILY [facility] Docusate Sodium 100 mg 04/15/20 09:00 04/21/20 09:06 Docusate Sodium 100 Mg Capsule PO Not Given BID [facility] Famotidine 20 mg 04/22/20 09:00 Famotidine 20 Mg Tablet PO DAILY [facility] Glyburide 5 mg 04/21/20 09:00 04/21/20 07:38 Glyburide 5 Mg Tablet PO 5 mg DAILY [facility] Administration Piperacillin Sod/Tazobactam 50 mls @ 100 mls/hr 04/15/20 00:00 04/21/20 09:06 Sod 2.25 gm/ Sodium Chloride IV Infused Q8H [facility] Infusion Sodium Chloride 1,000 mls @ 100 mls/hr 04/18/20 09:30 04/21/20 07:33 Ns IVCONT 100 mls/hr .Q10H [facility] Administration Ceftriaxone Sodium 1 gm/ 50 mls @ 100 mls/hr 04/20/20 17:00 04/20/20 18:28 Sodium Chloride IV Infused Q24H [facility] Infusion Insulin Human Lispro 0 unit 04/15/20 07:30 04/21/20 11:42 Insulin Lispro 100 Unit/Ml 3 Ml Vial SUBCUT Not Given QIDACHS [facility] Protocol Lidocaine 2 patch 04/15/20 09:15 04/21/20 07:37 Lidocaine 4 % Patch Adh..Patch TRANSDERMA 2 patch DAILY [facility] Administration Protocol Omeprazole 20 mg 04/22/20 06:30 Omeprazole 20 Mg Capsule.Dr PO DAILY@0630 [facility] Pharmacy Consult 1 each 04/14/20 23:02 Consult Rx Vancomycin Dosing MISCELLANE DAILY PRN Consult order Prednisolone Acetate 1 drop 04/15/20 09:00 04/21/20 10:56 Prednisolone Acetate 1 % Oph Susp 5 Ml Drpbtl EYE-LEFT 1 drop DAILY [facility] Administration Senna 17.2 mg 04/14/20 23:06 Sennosides 8.6 Mg Tablet PO BEDTIME PRN Constipation Sodium Chloride 3 ml 04/15/20 00:00 04/21/20 07:38 0.9 % Sodium Chloride Flush 3 Ml Syringe IVFLUSH Not Given QSHIFT [facility] Timolol Maleate 1 drop 04/15/20 09:00 04/21/20 09:06 Timolol Maleate Xe 0.25 % Gel 5 Ml Drbtl EYE-RIGHT Not Given DAILY [facility] Time Spent With Patient Time: Total time spent is greater than 50% in coordination of care (as documented) at patient's floor/unit and/or counseling patient: Time with patient: 15 - 24 minutes
--- NOTE | 2020-04-21 13:14 | P.CNHO_ITS ---
Subjective - Subjective Chief complaint: None Patient: new to practice Consult date: 04/21/20 Requesting Physician: Dr. Knapp Primary Care Provider: Unknown Physician HPI - Consult Narrative Reason for consult: Worsening anemia Narrative: Vesta Vences is a 75 year old female who has been admitted with diabetic foot infection, osteomyelitis and now found to have worsening anemia. On admission was 8.8 G/dL and this gradually declined to 6.8 G/dL on 04/21/2020. She has renal insufficiency, her creatinine on admission was 3.18. Further blood work revealed iron deficiency. She refused blood transfusion and also most of her oral medications including iron supplementation. Review of Systems - Neurologic Reports hearing normal, Reports abnormal speech, Denies abnormal gait [facility] Medical History: Medical History (Last Reviewed 04/23/20 @ 18:17 by Kwasi Nolasco) Blind Diabetes UTI due to Klebsiella species Family history: reviewed and not pertinent Social History: Social History (Last Reviewed 04/15/20 @ 13:37 by Rosina Stein MD) Living Situation History: Household Members: None Housing: Condominium Do you presently have visiting nurse or other home services: No Alcohol History: Alcohol intake: never Tobacco History: Smoking Status: Former smoker Substance Use History: Use of substances other than those prescribed or required for medical reasons : No Currently Displaying Signs/Symptoms of Drug Intoxication Withdrawal: No Domestic Abuse History: Have you been hit, kicked, punched, or otherwise hurt by someone within the past year? If so, by whom?: No Do you feel safe in your current relationship?: No Current Relationship Is there a partner from a previous relationship who is making you feel unsafe now?: No Are you made to feel afraid or neglected: No Advance Directives: Advance Directives: No Advance Directives Information Provided: Advance Directives Information Provided comment: declined Homicidal Assessment: Do you have thoughts of harming others: None Do you have a plan to hurt others: No Plan Nutrition Assessment: Recently lost weight without trying: Yes How much weight loss: Unsure Eating poorly because of decreased appetite: No Nutrition screen score: 4 Occupation Assessmet: service: No Current occupational status: disabled Smoking status: Former smoker Home Medications and Allergies Current Medications: Current Medications Generic Name Dose Route Start Last Admin Trade Name Freq PRN Reason Stop Dose Admin Acetaminophen 650 mg 04/14/20 23:06 04/21/20 04:16 Acetaminophen 325 Mg Tablet PO 650 mg Q6H PRN Administration Pain, Mild (Pain Scale 1-3) Amlodipine Besylate 5 mg 04/18/20 14:15 04/21/20 09:05 Amlodipine Besylate 5 Mg Tablet PO Not Given DAILY [facility] Protocol Ascorbic Acid 500 mg 04/17/20 13:30 04/21/20 07:38 Ascorbic Acid 500 Mg Tablet PO 500 mg DAILY [facility] Administration Aspirin 81 mg 04/15/20 09:00 04/21/20 07:38 Aspirin 81 Mg Tab.Chew PO 81 mg DAILY [facility] Administration Atropine Sulfate 1 drop 04/15/20 09:00 04/21/20 10:55 Atropine Sulfate 1 % Ophth Jacki 2 Ml Bottle EYE-LEFT 1 drop TID [facility] Administration Calcium Carbonate/Cholecalciferol 500 mg 04/17/20 13:30 04/21/20 07:37 Calcium + Vitamin D 250 Mg Tablet PO 500 mg DAILY [facility] Administration Clopidogrel Bisulfate 75 mg 04/20/20 09:00 04/21/20 09:06 Clopidogrel Bisulfate 75 Mg Tablet PO Not Given DAILY [facility] Docusate Sodium 100 mg 04/15/20 09:00 04/21/20 09:06 Docusate Sodium 100 Mg Capsule PO Not Given BID [facility] Famotidine 20 mg 04/22/20 09:00 Famotidine 20 Mg Tablet PO DAILY [facility] Glyburide 5 mg 04/21/20 09:00 04/21/20 07:38 Glyburide 5 Mg Tablet PO 5 mg DAILY [facility] Administration Piperacillin Sod/Tazobactam 50 mls @ 100 mls/hr 04/15/20 00:00 04/21/20 09:06 Sod 2.25 gm/ Sodium Chloride IV Infused Q8H [facility] Infusion Sodium Chloride 1,000 mls @ 100 mls/hr 04/18/20 09:30 04/21/20 07:33 Ns IVCONT 100 mls/hr .Q10H [facility] Administration Ceftriaxone Sodium 1 gm/ 50 mls @ 100 mls/hr 04/20/20 17:00 04/20/20 18:28 Sodium Chloride IV Infused Q24H [facility] Infusion Insulin Human Lispro 0 unit 04/15/20 07:30 04/21/20 11:42 Insulin Lispro 100 Unit/Ml 3 Ml Vial SUBCUT Not Given QIDACHS [facility] Protocol Lidocaine 2 patch 04/15/20 09:15 04/21/20 07:37 Lidocaine 4 % Patch Adh..Patch TRANSDERMA 2 patch DAILY [facility] Administration Protocol Omeprazole 20 mg 04/22/20 06:30 Omeprazole 20 Mg Capsule.Dr PO DAILY@0630 [facility] Pharmacy Consult 1 each 04/14/20 23:02 Consult Rx Vancomycin Dosing MISCELLANE DAILY PRN Consult order Prednisolone Acetate 1 drop 04/15/20 09:00 04/21/20 10:56 Prednisolone Acetate 1 % Oph Susp 5 Ml Drpbtl EYE-LEFT 1 drop DAILY [facility] Administration Senna 17.2 mg 04/14/20 23:06 Sennosides 8.6 Mg Tablet PO BEDTIME PRN Constipation Sodium Chloride 3 ml 04/15/20 00:00 04/21/20 07:38 0.9 % Sodium Chloride Flush 3 Ml Syringe IVFLUSH Not Given QSHIFT [facility] Timolol Maleate 1 drop 04/15/20 09:00 04/21/20 09:06 Timolol Maleate Xe 0.25 % Gel 5 Ml Drbtl EYE-RIGHT Not Given DAILY [facility] Home Medications Medication Instructions Recorded Confirmed Type aspirin 81 mg PO DAILY 04/15/20 04/15/20 History atropine 1 drp BID 04/15/20 04/15/20 History glyburide 1 tab PO BID 04/15/20 04/15/20 History prednisolone acetate 1 drp DAILY 04/15/20 04/15/20 History timolol maleate 1 drp OPHTHALMIC-RIGHT DAILY 04/15/20 04/15/20 History Allergies Allergy/AdvReac Type Severity Reaction Status Date / Time No Known Allergies Allergy Verified 04/14/20 20:37 [No Known Allergies*] Physical Exam Vital signs: Vital Signs Temp 98.8 F 04/21/20 11:04 Pulse 102 H 04/21/20 11:04 Resp 18 04/21/20 11:04 BP 190/77 H 04/21/20 11:04 Pulse Ox 95 04/21/20 11:04 Intake & Output 04/20/20 04/21/20 04/21/20 18:59 06:59 18:59 Intake Total 1390 / 2940 1550 / 2940 1050 / 1050 Output Total Balance 1390 / 2939 1549 / 2939 1050 / 1050 Intake: Intake, Oral Amount 240 / 740 500 / 740 Intake, IV Amount 1150 / 2200 1050 / 2200 1050 / 1050 Piperacillin Sodium/Tazobactam 100 / 150 50 / 150 50 / 50 2.25 gm In 0.9 % Sodium Chloride 50 ml @ 100 mls/hr IV Q8H [facility] Rx#:[id number] cefTRIAXone sodium 1 gm In 0.9 50 / 50 % Sodium Chloride 50 ml @ 100 mls/hr IV Q24H [facility] Rx#: [id number] 0.9 % Sodium Chloride 1,000 ml 1000 / 2000 1000 / 2000 1000 / 1000 @ 100 mls/hr IVCONT .Q10H [facility] Rx#:[id number] Output: Output, Stool Amount Other: Meal Refused No NPO Yes No Breakfast % Eaten 75% Dinner % Eaten 100% Number of Incontinent Voids 2 1 Number of Bowel Movements 1 3 Urine inc Urine Color Yellow Yellow Last Bowel Movement 04/21/20 04/21/20 Stool Incontinent Incontinent Stool Amount Moderate Large Stool Color Brown Green Stool Consistency Loose Pasty Liquid Weight 90.718 kg Hem/Onc Consult Result - Labs CBC & Chem 7: 04/23/20 06:01 04/24/20 05:18 Labs: Short CBC 04/21/20 Range/Units 04:59 WBC 12.5 H (4.8-10.8) X10*3/uL Hgb 6.8 L* (12.0-16.0) g/dl Hct 22.3 L (37-47) % Plt Count 250 (160-400) X10*3/uL BMP 04/21/20 04:59 Sodium 140 Potassium 4.0 Chloride 112 H Carbon Dioxide 17 L BUN 32 H Creatinine 2.89 H Calcium 7.6 L Assessment and Plan (1) Anemia Status: Acute Qualifiers: Anemia type: iron deficiency 1. 75-year-old woman with multiple medical problems presenting with right leg cellulitis, osteomyelitis of great toe. She has renal insufficiency and has developed normocytic anemia. Hemoglobin was 8.8 gram/dL, this gradually declined to 6.8 gram/dL. She has iron deficiency, renal insufficiency as well as infection/osteomyelitis, chronic diabetes all of which are contributing to her anemia. She refused blood transfusion. Her hemoglobin today is below 7 gram/dL, ideally she should receive blood transfusion. Parenteral iron therapy is generally not given in the face of active infection, however because of her worsening anemia and multiple comorbidities I would recommend at least 1 dose of IV Ferrlecit. She should also be started on oral iron supplementation twice daily with vitamin-C. Apparently she has been refusing oral medications. Procrit can be administered, but transferrin saturation should be at least 30% for Procrit to be effective. Vitamin B12, folate levels are pending. I thank you for this consultation.
[2020-04-21 13:16] LABS: Lactate Dehydrogenase 250 U/L (122-220)
[2020-04-21 15:36] LABS: Kappa, Serum 368 mg/dL (176-443); Kappa/Lambda Ratio, Serum 2.37 (1.29-2.55); Lambda, Serum 155 mg/dL (91-240)
--- NOTE | 2020-04-21 15:47 | PM.IDPN ---
Subjective Subjective Date of Service: 04/27/20 Interval History: she has no dysuria at this time ,not sure if had earlier Objective Data Labs CBC & Chem 7: 04/26/20 05:45 04/26/20 05:45 Labs: Laboratory Results - last 24 hr 04/17/20 04/20/20 04/20/20 11:49 16:24 19:55 WBC RBC Hgb Hct MCV MCH MCHC RDW Plt Count MPV Immature Gran % (Auto) Neut % (Auto) Lymph % (Auto) [place] % (Auto) Eos % (Auto) Baso % (Auto) Lymph # (Auto) [place] # (Auto) Eos # (Auto) Baso # (Auto) Abs Immat Gran (auto) Absolute Neuts (auto) Absolute Nucleated RBC Nucleated RBC % (auto) Absolute Retic Percent Retic Immature Retic Fraction Retic Hgb Equivalent Sodium Potassium Chloride Carbon Dioxide Anion Gap BUN Creatinine Estim Creat Clear Calc Estimated GFR POC Glucose 74 125 H Random Glucose Lactic Acid Calcium Lactate Dehydrogenase [place]/Lambda Ratio 2.37 [place] Light Chain Anal 368 Lambda Light Chain Anal 155 C. difficile Toxin A&B C. difficile Antigen C. difficile Interpret Blood Type Antibody Screen Crossmatch 04/21/20 04/21/20 04/21/20 04:59 04:59 04:59 WBC 12.5 H RBC 2.46 L Hgb 6.8 L* Hct 22.3 L MCV 90.7 MCH 27.6 MCHC 30.5 L RDW 12.7 Plt Count 250 MPV 10.2 Immature Gran % (Auto) 0.4 Neut % (Auto) 78.3 H Lymph % (Auto) 11.4 L [place] % (Auto) 8.1 Eos % (Auto) 1.4 Baso % (Auto) 0.4 Lymph # (Auto) 1.4 [place] # (Auto) 1.0 Eos # (Auto) 0.2 Baso # (Auto) 0.1 Abs Immat Gran (auto) 0.05 H Absolute Neuts (auto) 9.8 H Absolute Nucleated RBC 0.000 Nucleated RBC % (auto) 0.0 Absolute Retic Percent Retic Immature Retic Fraction Retic Hgb Equivalent Sodium 140 Potassium 4.0 Chloride 112 H Carbon Dioxide 17 L Anion Gap 15 BUN 32 H Creatinine 2.89 H Estim Creat Clear Calc 18.8 Estimated GFR 16 POC Glucose Random Glucose 132 H Lactic Acid 0.6 Calcium 7.6 L Lactate Dehydrogenase [place]/Lambda Ratio [place] Light Chain Anal Lambda Light Chain Anal C. difficile Toxin A&B C. difficile Antigen C. difficile Interpret Blood Type Antibody Screen Crossmatch 04/21/20 04/21/20 04/21/20 07:23 11:05 11:37 WBC RBC Hgb Hct MCV MCH MCHC RDW Plt Count MPV Immature Gran % (Auto) Neut % (Auto) Lymph % (Auto) [place] % (Auto) Eos % (Auto) Baso % (Auto) Lymph # (Auto) [place] # (Auto) Eos # (Auto) Baso # (Auto) Abs Immat Gran (auto) Absolute Neuts (auto) Absolute Nucleated RBC Nucleated RBC % (auto) Absolute Retic Percent Retic Immature Retic Fraction Retic Hgb Equivalent Sodium Potassium Chloride Carbon Dioxide Anion Gap BUN Creatinine Estim Creat Clear Calc Estimated GFR POC Glucose 108 86 Random Glucose Lactic Acid Calcium Lactate Dehydrogenase [place]/Lambda Ratio [place] Light Chain Anal Lambda Light Chain Anal C. difficile Toxin A&B Negative C. difficile Antigen Negative C. difficile Interpret SEE NOTE Blood Type Antibody Screen Crossmatch 04/21/20 04/21/20 04/21/20 12:33 12:33 12:33 WBC RBC Hgb Hct MCV MCH MCHC RDW Plt Count MPV Immature Gran % (Auto) Neut % (Auto) Lymph % (Auto) [place] % (Auto) Eos % (Auto) Baso % (Auto) Lymph # (Auto) [place] # (Auto) Eos # (Auto) Baso # (Auto) Abs Immat Gran (auto) Absolute Neuts (auto) Absolute Nucleated RBC Nucleated RBC % (auto) Absolute Retic 0.032 Percent Retic 1.2 Immature Retic Fraction 12.5 Retic Hgb Equivalent 27.9 L Sodium Potassium Chloride Carbon Dioxide Anion Gap BUN Creatinine Estim Creat Clear Calc Estimated GFR POC Glucose Random Glucose Lactic Acid Calcium Lactate Dehydrogenase 250 H [place]/Lambda Ratio [place] Light Chain Anal Lambda Light Chain Anal C. difficile Toxin A&B C. difficile Antigen C. difficile Interpret Blood Type O Positive Antibody Screen NEGATIVE Crossmatch See Detail Microbiology Microbiology Results: Microbiology 04/18/20 00:12 Blood - Venous Blood Culture - Preliminary No growth after 48 hours. 04/18/20 00:16 Blood - Venous Blood Culture - Preliminary No growth after 48 hours. 04/14/20 21:49 Blood - Venous Blood Culture - Final No growth after 5 days. 04/14/20 21:49 Blood - Venous Blood Culture - Final No growth after 5 days. 04/14/20 Unknown Urine clean catch - Clean Catch Midstream Urine Culture - Final Klebsiella pneumoniae Physical Exam Vital Signs: Vital Signs: Last Vital Signs Temp 100.2 F 04/21/20 12:00 Pulse 103 H 04/21/20 12:00 Resp 20 04/21/20 12:00 BP 173/76 H 04/21/20 12:00 Pulse Ox 96 04/21/20 12:00 Body Mass Index 32.3 Const: General: cooperative HENMT: Head: Yes normal to inspection Mouth: Normal oral and palatal mucosa present Eyes: General: appearance normal, both eyes and all related structures Resp: Effort & Inspection: normal respiratory effort Cardio: Rate: regular rate Rhythm: regular rhythm GI: Palpation (GI): Soft to palpation and nontender Skin: General skin exam: no rashes or lesions noted Extrem: General: Yes normal to inspection Assessment and Plan Assessment and plan (1) Osteomyelitis of great toe of right foot: Status: Acute (2) UTI due to Klebsiella species: Problem details: She is on antibiotics Some fever may be due to diabetic foot infection She seems to have no rash or reaction to antibiotics Status: Acute Assessment and Plan: Ceftriaxone also covers foot Flagyl foot Time Spent With Patient Time: Total time spent is greater than 50% in coordination of care (as documented) at patient's floor/unit and/or counseling patient: Time with patient: 15 - 24 minutes
[2020-04-21] MEDS: metroNIDAZOLE/NS 500 MG/100 ML PIGGYBACK 100 MG IV ×2 (16:20→22:30)
[2020-04-21 16:40] LABS: Glucose, Whole Blood 161 mg/dL (60-115)
--- NOTE | 2020-04-21 18:06 | PM.PNNEP ---
Subjective Subjective Date of Service: 04/21/20 Interval history: Seen and examined. Events noted Refusing meds on/off Physical Exam Vital Signs: Vital Signs: Last Vital Signs Temp 97.2 F 04/21/20 15:51 Pulse 66 04/21/20 18:05 Resp 18 04/21/20 15:51 BP 160/70 H 04/21/20 15:51 Pulse Ox 93 04/21/20 15:51 Body Mass Index 32.3 Const: General: cooperative, no acute distress and awake Orientation/consciousness: oriented to person and oriented to place Limitations: no limitations HENMT: Head: Yes normal to inspection, Yes normocephalic and Yes atraumatic Ears: external ears normal General nose exam: Normal external nose present Face and sinus: Yes normal facial exam Mouth: Normal oral and palatal mucosa present Throat: Yes posterior oropharynx normal Eyes: General: appearance normal, both eyes and all related structures Periorbital: periorbital findings normal Eyelids: Yes eyelids normal Conjunctivae: conjunctivae normal Sclerae: sclerae normal Corneas: corneas normal Pupils: Equal, round and reactive pupils present Neck: Neck: Yes full ROM, Yes no lymphadenopathy, Yes no meningeal signs, Yes trachea midline, Yes supple and Yes no JVD Carotids: no bruits Chest: Chest palpation & inspection: normal inspection of the chest and normal palpation of entire chest wall Resp: Effort & Inspection: normal respiratory effort and able to speak in complete sentences Auscultation: clear to auscultation bilaterally Cardio: Rate: regular rate and tachycardic Rhythm: regular rhythm Heart sounds: S1 normal heart sound present, S2 normal heart sound present and no murmurs Bruits: no carotid bruits Peripheral pulses: other (Unable to plapate DP, PT bilaterally) GI: Inspection: Yes normal to inspection Palpation (GI): Soft to palpation, nontender, no guarding, not rigid and No hepatosplenomegaly present : General: Yes no CVA tenderness Back/Spine/Pelvis: Back: no CVA tenderness Cervical Spine: normal cervical lordosis Thoracic/Lumbar Spine: thoracic and lumbar spine normal to inspection and paraspinal muscle tenderness bilaterally in the mid lumbar and in the lower lumbar Skin: Other: Improving erythema of the Right foot and less tenderness to palpation. No drainage. General skin exam: no rashes or lesions noted Lesions: no lesions Rashes: other (Right great toe infection) Wounds: no wounds Hair: normal Neuro: General: oriented to person, oriented to place and no meningeal signs Cranial nerves: Yes CN's II-XII intact bilaterally and Yes Equal, round and reactive pupils present Cognition (Neuro): normal cognition Speech: Abnormal speech present Motor exam (neuro): 5/5 motor strength present throughout Extrem: Other: great toe black tip,mild proximal cellulitis General: Yes normal to inspection, Yes full ROM, Yes no clubbing, cyanosis or edema, No clubbing, No cyanosis and No edema Psych: Appearance: well kempt Mental Status: mental status grossly normal Speech and movement: Normal speech and movement present Affect: normal affect Attitude: cooperative Thought process: Normal thought process present Thought content: Normal thought content present Objective Data Labs CBC & Chem 7: 04/21/20 04:59 04/21/20 04:59 Labs: Laboratory Results - last 24 hr 04/17/20 04/20/20 04/21/20 11:49 19:55 04:59 WBC RBC Hgb Hct MCV MCH MCHC RDW Plt Count MPV Immature Gran % (Auto) Neut % (Auto) Lymph % (Auto) [place] % (Auto) Eos % (Auto) Baso % (Auto) Lymph # (Auto) [place] # (Auto) Eos # (Auto) Baso # (Auto) Abs Immat Gran (auto) Absolute Neuts (auto) Absolute Nucleated RBC Nucleated RBC % (auto) Absolute Retic Percent Retic Immature Retic Fraction Retic Hgb Equivalent Sodium 140 Potassium 4.0 Chloride 112 H Carbon Dioxide 17 L Anion Gap 15 BUN 32 H Creatinine 2.89 H Estim Creat Clear Calc 18.8 Estimated GFR 16 POC Glucose 125 H Random Glucose 132 H Lactic Acid Calcium 7.6 L Lactate Dehydrogenase [place]/Lambda Ratio 2.37 [place] Light Chain Anal 368 L[place] Light Chain Anal 155 C. difficile Toxin A&B C. difficile Antigen C. difficile Interpret Blood Type Antibody Screen Crossmatch 04/21/20 04/21/20 04/21/20 04:59 04:59 07:23 WBC 12.5 H RBC 2.46 L Hgb 6.8 L* Hct 22.3 L MCV 90.7 MCH 27.6 MCHC 30.5 L RDW 12.7 Plt Count 250 MPV 10.2 Immature Gran % (Auto) 0.4 Neut % (Auto) 78.3 H Lymph % (Auto) 11.4 L [place] % (Auto) 8.1 Eos % (Auto) 1.4 Baso % (Auto) 0.4 Lymph # (Auto) 1.4 [place] # (Auto) 1.0 Eos # (Auto) 0.2 Baso # (Auto) 0.1 Abs Immat Gran (auto) 0.05 H Absolute Neuts (auto) 9.8 H Absolute Nucleated RBC 0.000 Nucleated RBC % (auto) 0.0 Absolute Retic Percent Retic Immature Retic Fraction Retic Hgb Equivalent Sodium Potassium Chloride Carbon Dioxide Anion Gap BUN Creatinine Estim Creat Clear Calc Estimated GFR POC Glucose 108 Random Glucose Lactic Acid 0.6 Calcium Lactate Dehydrogenase [place]/Lambda Ratio [place] Light Chain Anal Lambda Light Chain Anal C. difficile Toxin A&B C. difficile Antigen C. difficile Interpret Blood Type Antibody Screen Crossmatch 04/21/20 04/21/20 04/21/20 11:05 11:37 12:33 WBC RBC Hgb Hct MCV MCH MCHC RDW Plt Count MPV Immature Gran % (Auto) Neut % (Auto) Lymph % (Auto) [place] % (Auto) Eos % (Auto) Baso % (Auto) Lymph # (Auto) [place] # (Auto) Eos # (Auto) Baso # (Auto) Abs Immat Gran (auto) Absolute Neuts (auto) Absolute Nucleated RBC Nucleated RBC % (auto) Absolute Retic Percent Retic Immature Retic Fraction Retic Hgb Equivalent Sodium Potassium Chloride Carbon Dioxide Anion Gap BUN Creatinine Estim Creat Clear Calc Estimated GFR POC Glucose 86 Random Glucose Lactic Acid Calcium Lactate Dehydrogenase [place]/Lambda Ratio [place] Light Chain Anal Lambda Light Chain Anal C. difficile Toxin A&B Negative C. difficile Antigen Negative C. difficile Interpret SEE NOTE Blood Type O Positive Antibody Screen NEGATIVE Crossmatch See Detail 04/21/20 04/21/20 04/21/20 12:33 12:33 16:21 WBC RBC Hgb Hct MCV MCH MCHC RDW Plt Count MPV Immature Gran % (Auto) Neut % (Auto) Lymph % (Auto) [place] % (Auto) Eos % (Auto) Baso % (Auto) Lymph # (Auto) [place] # (Auto) Eos # (Auto) Baso # (Auto) Abs Immat Gran (auto) Absolute Neuts (auto) Absolute Nucleated RBC Nucleated RBC % (auto) Absolute Retic 0.032 Percent Retic 1.2 Immature Retic Fraction 12.5 Retic Hgb Equivalent 27.9 L Sodium Potassium Chloride Carbon Dioxide Anion Gap BUN Creatinine Estim Creat Clear Calc Estimated GFR POC Glucose 161 H Random Glucose Lactic Acid Calcium Lactate Dehydrogenase 250 H [place]/Lambda Ratio [place] Light Chain Anal Lambda Light Chain Anal C. difficile Toxin A&B C. difficile Antigen C. difficile Interpret Blood Type Antibody Screen Crossmatch Microbiology Microbiology Results: Microbiology 04/18/20 00:12 Blood - Venous Blood Culture - Preliminary No growth after 48 hours. 04/18/20 00:16 Blood - Venous Blood Culture - Preliminary No growth after 48 hours. 04/14/20 21:49 Blood - Venous Blood Culture - Final No growth after 5 days. 04/14/20 21:49 Blood - Venous Blood Culture - Final No growth after 5 days. 04/14/20 Unknown Urine clean catch - Clean Catch Midstream Urine Culture - Final Klebsiella pneumoniae Assessment & Plan Assessment and plan (1) Osteomyelitis of great toe of right foot: Status: Acute (2) Acute kidney injury: Status: Acute (3) Diabetic foot infection: Status: Acute (4) Essential hypertension: Status: Acute (5) PAD (peripheral artery disease): Status: Acute Assessment and Plan: . 75-year-old female with a past medical history of hypertension, hyperlipidemia, diabetes, legally blind, lives alone presented to the hospital with a chief complaint of right lower extremity pain w/u c/w osteo and isxchemic leg s/p angio and now being eval for vasc leg bypass 1. KRYSTYNA: multoifact including IV dye load; active infection and uncontrolled HTN 2. 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 Anemia: epo and Fe def 4. PVDz 5. Uncontrolled HTN: refusing meds 6. Blind 7. Ques competnecy given her refusal of BP meds and xfusion REC: track UOP/renal fumc; encourage her to take meds and xfusion; procrit once BP contorlloed; PO Fe ( avoid IV Fe fgivne active infection). Time Spent With Patient Time: Total time spent is greater than 50% in coordination of care (as documented) at patient's floor/unit and/or counseling patient:
[2020-04-21] MEDS: cefTRIAXone sodium 1 GM in 0.9 % Sodium Chloride 50 ML IV (18:15)
--- NOTE | 2020-04-21 18:15 | P.PNIM_ITS ---
Subjective Subjective Date of Service: 04/22/20 Interval History: Patient noted to have diarrhea this morning multiple episodes non bloody denies abdominal pain no associated nausea, last night noted to have a temp of 101.2 degrees, with no worsening shortness of breath or cough. [employer] no headache, no dizziness CVS no chest pain, no palpitation GI no nausea, no vomiting no abdominal pain , multiple episodes of diarrhea Physical Exam Vital Signs: Vital Signs: Last Vital Signs Temp 97.2 F 04/21/20 15:51 Pulse 100 04/21/20 15:51 Resp 18 04/21/20 15:51 BP 160/70 H 04/21/20 15:51 Pulse Ox 93 04/21/20 15:51 Body Mass Index 32.3 General patient is legally blind,no acute distress. Neck is supple no JVD. CVS regular rate rhythm, Respiratory lungs clear to auscultation, no respiratory distress, no wheeze, no rhonchi. Gastrointestinal abdomen soft, nontender, bowel sounds audible, no guarding , no rigidity. Extremities right great toe dry gangrene, no drainage, no redness and swelling on dorsum of foot Neuro nonfocal Skin no rash Objective Data Current Medications Generic Name Dose Route Start Last Admin Trade Name Freq PRN Reason Stop Dose Admin Acetaminophen 650 mg 04/14/20 23:06 04/21/20 04:16 Acetaminophen 325 Mg Tablet PO 650 mg Q6H PRN Administration Pain, Mild (Pain Scale 1-3) Amlodipine Besylate 5 mg 04/18/20 14:15 04/21/20 09:05 Amlodipine Besylate 5 Mg Tablet PO Not Given DAILY [facility] Protocol Ascorbic Acid 500 mg 04/17/20 13:30 04/21/20 07:38 Ascorbic Acid 500 Mg Tablet PO 500 mg DAILY RAUL Administration Aspirin 325 mg 04/22/20 09:00 Aspirin 325 Mg Tablet PO DAILY [facility] Atropine Sulfate 1 drop 04/15/20 09:00 04/21/20 16:21 Atropine Sulfate 1 % Ophth Jacki 2 Ml Bottle EYE-LEFT 1 drop TID RAUL Administration Calcium Carbonate/Cholecalciferol 500 mg 04/17/20 13:30 04/21/20 07:37 Calcium + Vitamin D 250 Mg Tablet PO 500 mg DAILY RAUL Administration Clopidogrel Bisulfate 75 mg 04/20/20 09:00 04/21/20 09:06 Clopidogrel Bisulfate 75 Mg Tablet PO Not Given DAILY [facility] Docusate Sodium 100 mg 04/15/20 09:00 04/21/20 09:06 Docusate Sodium 100 Mg Capsule PO Not Given BID [facility] Glyburide 5 mg 04/21/20 09:00 04/21/20 07:38 Glyburide 5 Mg Tablet PO 5 mg DAILY [facility] Administration Sodium Chloride 1,000 mls @ 100 mls/hr 04/18/20 09:30 04/21/20 07:33 Ns IVCONT 100 mls/hr .Q10H [facility] Administration Ceftriaxone Sodium 1 gm/ 50 mls @ 100 mls/hr 04/20/20 17:00 04/20/20 18:28 Sodium Chloride IV Infused Q24H [facility] Infusion Metronidazole 500 mg in 100 mls @ 100 mls/hr 04/21/20 16:00 04/21/20 16:20 Flagyl IV 100 mls/hr Q8H [facility] Administration Insulin Human Lispro 0 unit 04/15/20 07:30 04/21/20 18:13 Insulin Lispro 100 Unit/Ml 3 Ml Vial SUBCUT Not Given QIDACHS [facility] Protocol Lidocaine 2 patch 04/15/20 09:15 04/21/20 07:37 Lidocaine 4 % Patch Adh..Patch TRANSDERMA 2 patch DAILY [facility] Administration Protocol Omeprazole 20 mg 04/22/20 06:30 Omeprazole 20 Mg Capsule.Dr PO DAILY@0630 [facility] Pharmacy Consult 1 each 04/14/20 23:02 Consult Rx Vancomycin Dosing MISCELLANE DAILY PRN Consult order Prednisolone Acetate 1 drop 04/15/20 09:00 04/21/20 10:56 Prednisolone Acetate 1 % Oph Susp 5 Ml Drpbtl EYE-LEFT 1 drop DAILY [facility] Administration Senna 17.2 mg 04/14/20 23:06 Sennosides 8.6 Mg Tablet PO BEDTIME PRN Constipation Sodium Chloride 3 ml 04/15/20 00:00 04/21/20 18:13 0.9 % Sodium Chloride Flush 3 Ml Syringe IVFLUSH Not Given QSHIFT [facility] Timolol Maleate 1 drop 04/15/20 09:00 04/21/20 09:06 Timolol Maleate Xe 0.25 % Gel 5 Ml Drbtl EYE-RIGHT Not Given DAILY [facility] Labs CBC & Chem 7: 04/22/20 06:07 04/22/20 06:07 Microbiology Microbiology Results: Microbiology 04/18/20 00:12 Blood - Venous Blood Culture - Preliminary No growth after 48 hours. 04/18/20 00:16 Blood - Venous Blood Culture - Preliminary No growth after 48 hours. 04/14/20 21:49 Blood - Venous Blood Culture - Final No growth after 5 days. 04/14/20 21:49 Blood - Venous Blood Culture - Final No growth after 5 days. 04/14/20 Unknown Urine clean catch - Clean Catch Midstream Urine Culture - Final Klebsiella pneumoniae Assessment and Plan (1) UTI due to Klebsiella species: Problem details: It is unclear activity, she may have colonization Status: Acute (2) Anemia: Status: Acute (3) Essential hypertension: Status: Acute (4) PAD (peripheral artery disease): Status: Acute (5) Diabetic foot infection: Status: Acute (6) Osteomyelitis of great toe of right foot: Status: Acute (7) Acute kidney injury: Status: Acute Assessment and Plan: 75-year-old female with a past medical history of hypertension, hyperlipidemia, diabetes, legally blind, lives alone presented to the hospital with a chief complaint of right lower extremity pain. Diabetic right foot infection/peripheral arterial disease Patient denies foot pain, noted to have fever last night while on IV Zosyn, case discussed with ID , Dr. Stein adjusted antibiotic IV Zosyn discontinued patient continued on IV ceftriaxone and Flagyl added, being followed by Dr. Blood is scheduled for left to right femoral to femorral bypass on Friday , patient is status post successful plasty of left external iliac artery 0n 04/19/20, continue pain medication, blood cultures x2 negative, patient started on Plavix however she is refusing to take Plavix and demanding to be placed on aspirin 325 mg daily , spoke with Dr. Blood and he agreed to place patient on aspirin 325 severino ly will discontinue Plavix Patient being followed by Cardiology and Nephrology for preop clearance for upcoming bypass surgery. Undergoing Lexiscan stress test and echocardiogram report pending. Diarrhea Patient noted to have multiple loose stools with no blood will check stool for C diff and order Imodium question likely contributed by antibiotic. UTI urine culture grew Klebsiella pneumonia continue IV ceftriaxone day 2 Uncontrolled hypertension patient is refusing antihypertensive medications she feels aspirin alone is enough to take care of her blood pressure patient has been inform about the risk of persistent hypertension including CVA, cardiac disease and hemorrhage. Will obtain psych eval for competency KRYSTYNA on CKD. History of chronic kidney disease with baseline creatinine around 2 most consistent with diabetic nephropathy, creatinine gradually trending up, will follow renal function closely since patient underwent angiogram and today having diarrhea, case discussed with Dr. Carey will decrease rate of IV fluids to 80 mL/hour Avoid nephrotoxins. Acute on chronic anemia, noted to have significant drop in hematocrit this a.m. patient asymptomatic with no chest pain, no shortness of breath, lightheadedness or dizziness, no hematemesis or melena noted. stool guaiac came back negative, iron studies consistent with mild iron deficiency, patient seen by Dr. Diego he recommended Pepcid with possibility of gastritis with chronic use of aspirin And recommend outpatient colonoscopy, iron studies consistent with iron deficiency anemia ordered to 2 unit of packed RBC however patient is refusing blood transfusion, workup for hemolysis, B12 folate ordered, also consulted Dr. Monroy to assist with anemia, she is recommending IV Ferrlecit and by mouth iron replacement with vitamin-C and once transferrin saturation is 30% she recommend Procrit, will follow CBC closely. Hyperkalemia. Resolved with kayexalate Back pain. Chronic with no acute exacerbation continue lidocaine and oxycodone Diabetes Blood sugars stable continue ADA diet and insulin sliding scale at home patient takes glyburide twice daily ,dose reduce to once daily due to acute renal fail ure . Legally Blind continue Home eye drops. DVT prophylaxis on mechanical device avoid anticoagulation due to low H&H
--- NOTE | 2020-04-21 18:43 | PC.NURSE ---
When patient awoke this morning, she was in a cold sweat following a low grade fever of 100.0/101.0 last night; PRN tylenol effective, temp 98.8 this morning. Patient refused Plavix, Amlodipine, and pepcid. Patient's H+H low, patient refused blood transfusion despite education from this RN and hospitalist. Patient agreed to receive 1 time dose of IV iron. Patient had multiple bouts of diarrhea, stool specimen collected, negative for C-Diff, 1 time dose of Loperamide given with good effect. Patient underwent stress test this morning and echocardiogram this afternoon. Patient's POC prior to dinner 161; patient refused insulin per facility sliding scale policy.
[2020-04-21] MEDS: 0.9 % Sodium Chloride Flush 3 ML SYRINGE IVFLUSH (20:03)
[2020-04-21 20:16] LABS: Glucose, Whole Blood 199 mg/dL (60-115)
[2020-04-22] VITALS (15 sets, daily range): BP systolic 151–188; BP diastolic 62–81; PULSE 77–110; RESP 20–24; TEMP 36.3–38; O2SAT 94–98
[2020-04-22] MEDS: hydrALAZINE HCl 20 MG/ML VIAL 5 MG IVPUSH (02:15)
[2020-04-22] MEDS: Acetaminophen 325 MG TABLET 650 MG PO ×2 (02:43→20:45)
--- NOTE | 2020-04-22 02:47 | PC.NURSE ---
At beginning of shift pt. refusing most medications and treatments, made aware. BP elevated, refusing anything but aspirin. States, My doctor at home prescribed me aspirin and that is all I will take. Pt. educated about importance of BP medications and hgb levels and need for blood. Pt spoke with sister in front of this RN who convinced pt to receive ordered blood transfusions. Dr. Hernandez made aware. Pt signed consent form and 1st unit transfused. Pt spiking low grade temps between 99.9-100.0. Medicated with tylenol. Pt also has blood pressures sustaining in the 180s systolic. made aware and one time order dose of 5mg IV hydralazine administered. 2nd unit of blood transfusing at this time. Pt remains asymptomatic, all other VSS. Pt is on 2L O2 satting 95%. Will continue to monitor and reassess.
[2020-04-22] MEDS: 0.9 % Sodium Chloride 1,000 ML 75 ML IVCONT ×2 (05:11→18:10)
[2020-04-22 06:58] LABS: MANUAL DIFF FLAG NO
[2020-04-22 07:03] LABS: Basophils Absolute Auto 0.1 X10*3/uL (0.0-0.2); Basophils Percent Auto 0.5 % (0-2); Eosinophils Absolute Auto 0.3 X10*3/uL (0.0-0.4); Eosinophils Percent Auto 2.3 % (0-4); Hematocrit 25.9 % (37-47); Imm Gran Abs Auto 0.08 X10*3/uL (0.00-0.03); Imm Gran Pct Auto 0.6 % (0.0-0.4); Lymphocytes Absolute Auto 1.9 X10*3/uL (1.2-4.9); Lymphocytes Percent Auto 14.1 % (20-40); Mean Corpuscular HGB Conc 30.9 g/dl (31.0-35.0); Mean Corpuscular Volume 90.6 fL (80-98); Mean Platelet Volume 10.1 fL (9.4-12.3); Monocytes Absolute Auto 1.3 X10*3/uL (0.1-1.2); Monocytes Percent Auto 9.7 % (2-11); Neutrophils Absolute Auto 9.6 X10*3/uL (2.0-8.3); Neutrophils Percent Auto 72.8 % (45-73); Platelet Count 236 X10*3/uL (160-400); Red Blood Count 2.86 X10*6/uL (4.20-5.50); Red Cell Distribution Width 13.1 % (11.0-16.0); White Blood Count 13.2 X10*3/uL (4.8-10.8)
[2020-04-22 07:14] LABS: Glucose, Whole Blood 91 mg/dL (60-115)
[2020-04-22 07:33] LABS: Anion Gap 12 (12-20); Blood Urea Nitrogen 31 mg/dL (9-16); Calcium 7.5 mg/dL (8.4-10.2); Carbon Dioxide 19 mmol/L (22-29); Chloride 114 mmol/L (96-108); Creatinine Clr Calc Pharmacy 17.7; Estimated Glomerular Filt Rate 15; Glucose Random 110 mg/dL (60-115); Sodium 141 mmol/L (135-145)
[2020-04-22] MEDS: Lidocaine 4 % Patch ADH..PATCH 2 PATCH TRANSDERMA (08:02)
[2020-04-22] MEDS: Calcium + Vitamin D 250 MG TABLET 500 MG PO (08:04)
[2020-04-22] MEDS: amLODIPine Besylate 5 MG TABLET PO (08:05)
[2020-04-22] MEDS: 0.9 % Sodium Chloride Flush 3 ML SYRINGE IVFLUSH ×3 (08:11→20:42)
[2020-04-22] MEDS: metroNIDAZOLE/NS 500 MG/100 ML PIGGYBACK 100 MG IV ×2 (08:11→17:06)
[2020-04-22] MEDS: glyBURIDE 5 MG TABLET PO (08:12)
[2020-04-22] MEDS: Aspirin 325 MG TABLET PO (08:12)
[2020-04-22] MEDS: Ascorbic Acid 500 MG TABLET PO (08:12)
[2020-04-22] MEDS: Atropine Sulfate 1 % Ophth Sol 2 ML BOTTLE 1 DROP EYE-LEFT ×2 (08:15→17:07)
[2020-04-22] MEDS: prednisoLONE Acetate 1 % Oph Susp 5 ML DRPBTL 1 DROP EYE-LEFT (08:15)
--- NOTE | 2020-04-22 09:46 | P.PNIM_ITS ---
Subjective Subjective Date of Service: 04/22/20 Interval History: Patient had fever last night and is soaked in sweat this morning complaining of postnasal drip and cough requesting for Robitussin DM, admits that every year same time she gets sinus infections, diarrhea resolved, patient is more cooperative received blood transfusion later in the afternoon agreeing to take blood pressure medication. ROS GEN fever, postnasal drip [employer] no headache, no dizziness CVS no chest pain, no palpitation GI no nausea, no vomiting no abdominal pain ,no diarrhea Physical Exam Vital Signs: Vital Signs: Last Vital Signs Temp 98.8 F 04/22/20 07:34 Pulse 110 H 04/22/20 08:05 Resp 24 H 04/22/20 07:34 BP 178/68 H 04/22/20 08:05 Pulse Ox 94 04/22/20 07:34 Body Mass Index 32.3 General awake alert, and cooperative. Neck is supple no JVD. CVS regular rate rhythm, Respiratory lungs clear to auscultation, no respiratory distress, no wheeze, no rhonchi. Gastrointestinal abdomen soft, nontender, bowel sounds audible, no guarding , no rigidity. Extremities right great toe dry gangrene, no drainage, no redness and no swelling on dorsum of foot Neuro nonfocal, legally blind Skin no rash Objective Data Current Medications Generic Name Dose Route Start Last Admin Trade Name Harmanq PRN Reason Stop Dose Admin Acetaminophen 650 mg 04/14/20 23:06 04/22/20 02:43 Acetaminophen 325 Mg Tablet PO 650 mg Q6H PRN Administration Pain, Mild (Pain Scale 1-3) Amlodipine Besylate 5 mg 04/18/20 14:15 04/22/20 08:05 Amlodipine Besylate 5 Mg Tablet PO 5 mg DAILY RAUL Administration Protocol Ascorbic Acid 500 mg 04/17/20 13:30 04/22/20 08:12 Ascorbic Acid 500 Mg Tablet PO 500 mg DAILY RAUL Administration Aspirin 325 mg 04/22/20 09:00 04/22/20 08:12 Aspirin 325 Mg Tablet PO 325 mg DAILY RAUL Administration Atropine Sulfate 1 drop 04/15/20 09:00 04/22/20 08:15 Atropine Sulfate 1 % Ophth Jacki 2 Ml Bottle EYE-LEFT 1 drop TID RAUL Administration Calcium Carbonate/Cholecalciferol 500 mg 04/17/20 13:30 04/22/20 08:04 Calcium + Vitamin D 250 Mg Tablet PO 500 mg DAILY RAUL Administration Docusate Sodium 100 mg 04/15/20 09:00 04/22/20 08:20 Docusate Sodium 100 Mg Capsule PO Not Given BID RAUL Glyburide 5 mg 04/21/20 09:00 04/22/20 08:12 Glyburide 5 Mg Tablet PO 5 mg DAILY RAUL Administration Guaifenesin/Dextromethorphan 10 ml 04/22/20 09:30 Guaifenesin Dm 100/10/5 Ml 5 Ml Syrup PO Q6H [facility] Sodium Chloride 1,000 mls @ 75 mls/hr 04/18/20 09:30 04/22/20 05:11 Ns IVCONT 75 mls/hr .[id number] [facility] Administration Ceftriaxone Sodium 1 gm/ 50 mls @ 100 mls/hr 04/20/20 17:00 04/21/20 18:46 Sodium Chloride IV Infused Q24H [facility] Infusion Metronidazole 500 mg in 100 mls @ 100 mls/hr 04/21/20 16:00 04/22/20 08:11 Flagyl IV 100 mls/hr Q8H [facility] Administration Insulin Human Lispro 0 unit 04/15/20 07:30 04/22/20 08:14 Insulin Lispro 100 Unit/Ml 3 Ml Vial SUBCUT Not Given QIDACHS [facility] Protocol Lidocaine 2 patch 04/15/20 09:15 04/22/20 08:02 Lidocaine 4 % Patch Adh..Patch TRANSDERMA 2 patch DAILY [facility] Administration Protocol Omeprazole 20 mg 04/22/20 06:30 04/22/20 05:55 Omeprazole 20 Mg Capsule.Dr PO Not Given DAILY@0630 [facility] Pharmacy Consult 1 each 04/14/20 23:02 Consult Rx Vancomycin Dosing MISCELLANE DAILY PRN Consult order Prednisolone Acetate 1 drop 04/15/20 09:00 04/22/20 08:15 Prednisolone Acetate 1 % Oph Susp 5 Ml Drpbtl EYE-LEFT 1 drop DAILY [facility] Administration Senna 17.2 mg 04/14/20 23:06 Sennosides 8.6 Mg Tablet PO BEDTIME PRN Constipation Sodium Chloride 3 ml 04/15/20 00:00 04/22/20 08:11 0.9 % Sodium Chloride Flush 3 Ml Syringe IVFLUSH 3 ml QSHIFT [facility] Administration Timolol Maleate 1 drop 04/15/20 09:00 04/22/20 08:38 Timolol Maleate Xe 0.25 % Gel 5 Ml Drbtl EYE-RIGHT 1 drop DAILY RAUL Administration Labs CBC & Chem 7: 04/22/20 06:07 04/22/20 06:07 Microbiology Microbiology Results: Microbiology 04/21/20 05:05 Blood - Venous Blood Culture - Preliminary No growth after 24 hours. 04/21/20 04:59 Blood - Venous Blood Culture - Preliminary No growth after 24 hours. 04/18/20 00:12 Blood - Venous Blood Culture - Preliminary No growth after 48 hours. 04/18/20 00:16 Blood - Venous Blood Culture - Preliminary No growth after 48 hours. 04/14/20 21:49 Blood - Venous Blood Culture - Final No growth after 5 days. 04/14/20 21:49 Blood - Venous Blood Culture - Final No growth after 5 days. 04/14/20 Unknown Urine clean catch - Clean Catch Midstream Urine Culture - Final Klebsiella pneumoniae Assessment and Plan (1) Osteomyelitis of great toe of right foot: Status: Acute (2) UTI due to Klebsiella species: Problem details: It is unclear activity, she may have colonization Status: Acute (3) Anemia: Status: Acute (4) Essential hypertension: Status: Acute (5) PAD (peripheral artery disease): Status: Acute (6) Diabetic foot infection: Status: Acute (7) Acute kidney injury: Status: Acute (8) Diarrhea: Status: Acute Assessment and Plan: 75-year-old female with a past medical history of hypertension, hyperlipidemia, diabetes, legally blind, lives alone presented to the hospital with a chief complaint of right lower extremity pain. Diabetic right foot infection/peripheral arterial disease Recurrent fever at night, WBC trending up patient seen by Dr. Stein she discontinued IV Zosyn, and continued treatment with IV ceftriaxone and Flagyl added, will discuss further adjustment of antibiotic due to persistent fevers being followed by Dr. Blood is scheduled for left to right femoral to femorral bypass on Friday , patient is status post successful plasty of left external iliac artery 0n 04/19/20, continue pain medication, blood cultures x2 negative, patient started on Plavix however she is refusing to take Plavix and demanding to be placed on aspirin 325 mg daily , spoke with Dr. Blood and he agreed to place patient on aspirin 325 daily , Plavix discontinued. Patient being followed by Cardiology and Nephrology for preop clearance for upcoming bypass surgery. Lexiscan showed moderate size inferior wall ischemia EF 41% with stress and 58 with rest and echocardiogram report pending. Will discuss treatment options with Cardiology. Will check lipid profile add beta- blockers continue asa. Diarrhea Resolved, C diff negative was likely related to antibiotics. UTI urine culture grew Klebsiella pneumonia continue IV ceftriaxone day 3 Uncontrolled hypertension patient agreeing to take blood pressure medication will give Norvasc 5 mg and add beta-isidra. 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 History of chronic kidney disease with baseline creatinine around 2 most consistent with diabetic nephropathy, creatinine gradually trending up, will follow renal function closely since patient underwent angiogram and had diarrhea, case discussed with Dr. Carey will continue IV fluids to 80 mL/hour Avoid nephrotoxins. Acute on chronic anemia, noted to have significant drop in hematocrit therefore received 2 units of packed RBC hematocrit improved, patient received 1 dose of IV Ferrlecit Will place patient on iron supplement and vitamin-C B12/ folate are pending ,patient asymptomatic with no chest pain, no shortness of breath, lightheadedness or dizziness, no hematemesis or melena noted. stool guaiac came back negative, iron studies consistent with mild iron deficiency, patient seen by Dr. Diego he recommended Pepcid with possibility of gastritis with chronic use of aspirin And recommend outpatient colonoscopy. Patient also evaluated by Dr. Monroy will follow recommendation Hyperkalemia. Resolved with kayexalate Back pain. Chronic with no acute exacerbation continue lidocaine and oxycodone Diabetes Blood sugars stable continue ADA diet and insulin sliding scale at home patient takes glyburide twice daily ,dose reduce to once daily due to acute renal failure . Legally Blind continue Home eye drops. DVT prophylaxis on mechanical device avoid anticoagulation due to low H&H
[2020-04-22] MEDS: guaiFENesin DM 100/10/5 ML 5 ML SYRUP 10 ML PO ×3 (10:09→20:42)
[2020-04-22 10:29] LABS: Cholesterol 219 mg/dL; HDL Cholesterol 31 mg/dL; LDL Cholesterol Calculated 160 mg/dl; Triglycerides 144 mg/dL
[2020-04-22 11:31] LABS: Glucose, Whole Blood 75 mg/dL (60-115)
--- NOTE | 2020-04-22 11:42 | PM.HEMONCPN ---
Medical Summary - Medical Summary Date of Service: 04/22/20 Chief complaint: normochromic normocytic multifactorial anemia Review of Systems - Constitutional Reports anorexia - ENT Reports system reviewed and no additional complaints, except as documented - Cardiovascular Reports fast heart rate - Respiratory Reports chest congestion - Gastrointestinal Reports other - Genitourinary Reports other - Musculoskeletal Reports other - Neurologic Reports hearing normal, Reports abnormal speech, Denies abnormal gait [facility] Medical History: Medical History (Last Updated 04/21/20 @ 15:49 by Rosina Stein MD) Blind Diabetes UTI due to Klebsiella species Family history: reviewed and not pertinent Social History: Social History (Last Reviewed 04/15/20 @ 13:37 by Rosina Stein MD) Living Situation History: Household Members: None Housing: Condominium Do you presently have visiting nurse or other home services: No Alcohol History: Alcohol intake: never Tobacco History: Smoking Status: Former smoker Substance Use History: Use of substances other than those prescribed or required for medical reasons: No Currently Displaying Signs/Symptoms of Drug Intoxication Withdrawal: No Domestic Abuse History: Have you been hit, kicked, punched, or otherwise hurt by someone within the past year? If so, by whom?: No Do you feel safe in your current relationship?: No Current Relationship Is there a partner from a previous relationship who is making you feel unsafe now?: No Are you made to feel afraid or neglected: No Advance Directives: Advance Directives: No Advance Directives Information Provided: Advance Directives Information Provided comment: declined Homicidal Assessment: Do you have thoughts of harming others: None Do you have a plan to hurt others: No Plan Nutrition Assessment: Recently lost weight without trying: Yes How much weight loss: Unsure Eating poorly because of decreased appetite: No Nutrition screen score: 4 Occupation Assessmet: service: No Current occupational status: disabled Smoking status: Former smoker Home Medications and Allergies Current Medications: Current Medications Generic Name Dose Route Start Last Admin Trade Name Freq PRN Reason Stop Dose Admin Acetaminophen 650 mg 04/14/20 23:06 04/22/20 02:43 Acetaminophen 325 Mg Tablet PO 650 mg Q6H PRN Administration Pain, Mild (Pain Scale 1-3) Amlodipine Besylate 5 mg 04/18/20 14:15 04/22/20 08:05 Amlodipine Besylate 5 Mg Tablet PO 5 mg DAILY RAUL Administration Protocol Ascorbic Acid 500 mg 04/17/20 13:30 04/22/20 08:12 Ascorbic Acid 500 Mg Tablet PO 500 mg DAILY RAUL Administration Aspirin 325 mg 04/22/20 09:00 04/22/20 08:12 Aspirin 325 Mg Tablet PO 325 mg DAILY RAUL Administration Atropine Sulfate 1 drop 04/15/20 09:00 04/22/20 08:15 Atropine Sulfate 1 % Ophth Jacki 2 Ml Bottle EYE-LEFT 1 drop TID RAUL Administration Calcium Carbonate/Cholecalciferol 500 mg 04/17/20 13:30 04/22/20 08:04 Calcium + Vitamin D 250 Mg Tablet PO 500 mg DAILY RAUL Administration Docusate Sodium 100 mg 04/15/20 09:00 04/22/20 08:20 Docusate Sodium 100 Mg Capsule PO Not Given BID RAUL Glyburide 5 mg 04/21/20 09:00 04/22/20 08:12 Glyburide 5 Mg Tablet PO 5 mg DAILY RAUL Administration Guaifenesin/Dextromethorphan 10 ml 04/22/20 09:30 04/22/20 10:09 Guaifenesin Dm 100/10/5 Ml 5 Ml Syrup PO 10 ml Q6H RAUL Administration Sodium Chloride 1,000 mls @ 75 mls/hr 04/18/20 09:30 04/22/20 05:11 Ns IVCONT 75 mls/hr .[id number] RAUL Administration Ceftriaxone Sodium 1 gm/ 50 mls @ 100 mls/hr 04/20/20 17:00 04/21/20 18:46 Sodium Chloride IV Infused Q24H RAUL Infusion Metronidazole 500 mg in 100 mls @ 100 mls/hr 04/21/20 16:00 04/22/20 09:56 Flagyl IV Infused Q8H [facility] Infusion Insulin Human Lispro 0 unit 04/15/20 07:30 04/22/20 08:14 Insulin Lispro 100 Unit/Ml 3 Ml Vial SUBCUT Not Given QIDACHS [facility] Protocol Lidocaine 2 patch 04/15/20 09:15 04/22/20 08:02 Lidocaine 4 % Patch Adh..Patch TRANSDERMA 2 patch DAILY RAUL Administration Protocol Metoprolol Tartrate 25 mg 04/22/20 21:00 Metoprolol Tartrate 25 Mg Tablet PO BID [facility] Protocol Omeprazole 20 mg 04/22/20 06:30 04/22/20 05:55 Omeprazole 20 Mg Capsule.Dr PO Not Given DAILY@0630 [facility] Pharmacy Consult 1 each 04/14/20 23:02 Consult Rx Vancomycin Dosing MISCELLANE DAILY PRN Consult order Prednisolone Acetate 1 drop 04/15/20 09:00 04/22/20 08:15 Prednisolone Acetate 1 % Oph Susp 5 Ml Drpbtl EYE-LEFT 1 drop DAILY RAUL Administration Senna 17.2 mg 04/14/20 23:06 Sennosides 8.6 Mg Tablet PO BEDTIME PRN Constipation Sodium Chloride 3 ml 04/15/20 00:00 04/22/20 08:11 0.9 % Sodium Chloride Flush 3 Ml Syringe IVFLUSH 3 ml QSHIFT [facility] Administration Timolol Maleate 1 drop 04/15/20 09:00 04/22/20 08:38 Timolol Maleate Xe 0.25 % Gel 5 Ml Drbtl EYE-RIGHT 1 drop DAILY [facility] Administration Home Medications Medication Instructions Recorded Confirmed Type aspirin 81 mg PO DAILY 04/15/20 04/15/20 History atropine 1 drp BID 04/15/20 04/15/20 History glyburide 1 tab PO BID 04/15/20 04/15/20 History prednisolone acetate 1 drp DAILY 04/15/20 04/15/20 History timolol maleate 1 drp OPHTHALMIC-RIGHT DAILY 04/15/20 04/15/20 History Allergies Allergy/AdvReac Type Severity Reaction Status Date / Time No Known Allergies Allergy Verified 04/14/20 20:37 [No Known Allergies*] Exam Vital signs: Vital Signs Temp 98.8 F 04/22/20 07:34 Pulse 110 H 04/22/20 08:05 Resp 24 H 04/22/20 07:34 BP 178/68 H 04/22/20 08:05 Pulse Ox 94 04/22/20 07:34 Intake & Output 04/21/20 04/22/20 04/22/20 18:59 06:59 18:59 Intake Total 2550 / 3711 1161 / 3711 100 / 100 Output Total 800 / 800 Balance 2550 / 2911 361 / 2911 100 / 100 Urine Output (Average ml/kg/hr) 0.18 0.18 Intake: Intake, Oral Amount 240 / 740 500 / 740 Intake (Blood Product) Amount 561 / 561 Red Blood Cells Aph (E0685) 283 / 283 Unit [id number] Red Blood Cells Aph (E0686) 278 / 278 Unit [id number] Intake, IV Amount 2310 / 2410 100 / 2410 100 / 100 Piperacillin Sodium/Tazobactam 50 / 50 2.25 gm In 0.9 % Sodium Chloride 50 ml @ 100 mls/hr IV Q8H [facility] Rx#:[id number] Sodium Ferric Gluconat/Sucrose 110 / 110 125 mg In 0.9 % Sodium Chloride 100 ml @ 100 mls/hr IV ONCE ONE Rx#:[id number] cefTRIAXone sodium 1 gm In 0.9 50 / 50 % Sodium Chloride 50 ml @ 100 mls/hr IV Q24H [facility] Rx#: [id number] metroNIDAZOLE/NS 500 mg In 100 100 / 200 100 / 200 100 / 100 ml @ 100 mls/hr IV Q8H [facility] Rx#: [id number] 0.9 % Sodium Chloride 1,000 ml 2000 / 2000 @ 75 mls/hr IVCONT .[id number] [facility] Rx#:[id number] Output: Output, Urine Amount 200 / 200 Output, Stool Amount 600 / 600 Other: Lunch % Eaten 75% Dinner % Eaten 100% Number of Incontinent Voids 2 1 Number of Bowel Movements 4 Urine Bedpan Urine Color Yellow Last Bowel Movement 04/21/20 04/21/20 Stool Bedpan Stool Amount Moderate Stool Color Yellow Stool Consistency Liquid Weight 90.718 kg Body Mass Index 32.3 - Constitutional Present: no acute distress - Routine HEENT Exam Head: Present: atraumatic - Routine Neck Exam Present: full ROM (clear) - Routine Cardiovascular Exam Cardiovascular: Present: RRR - Routine Abdominal Exam Present: soft - Routine Rectal Exam Patient deferred: visual exam - Routine Extremities Exam Present: nontender Data - Labs CBC & Chem 7: 04/22/20 06:07 04/22/20 06:07 Labs: 04/14/20 Urine Culture Routine 04/14/20 21:05 XR foot RT 2V Stat 0.9 % Sodium Chloride [Ns] 1,000 ml IV 999 mls/hr Acetaminophen [Tylenol] 975 mg PO ONCE STA 04/14/20 21:19 ceFAZolin Sodium/Dextrose,Iso [Ancef] 2 gm in 50 ml IV ONCE 04/14/20 21:49 Complete Blood Count Auto Diff Stat Comprehensive Met. Panel Stat Erythrocyte Sedimentation Rate Stat Lactic Acid Stat Lipase Stat Partial Thromboplastin Time Stat Prothrombin Time INR Stat Blood Culture X2 [BC] Stat 04/14/20 21:50 COVID-19 ID NOW (Martinez) Stat 04/14/20 22:44 ECG 12 lead EKG Stat EKG Documentation DIRECTED 04/14/20 22:53 0.9 % Sodium Chloride [Ns] 1,000 ml IV 999 mls/hr 04/14/20 22:58 Consult Rx Perform Med Rec 1 each MISCELLANE ONCE PRN 04/14/20 23:03 UA CC w/rflx Micro + Cult Stat 04/14/20 23:08 Transfer Order Routine 04/14/20 23:15 Heparin Sodium,Porcine 5,000 unit SUBCUT BID Sodium Chloride 0.45 % 1,000 ml IVCONT 100 mls/hr 04/14/20 23:29 Potassium Stat 04/14/20 23:45 vancomycin HCL 1,000 mg 0.9 % Sodium Chloride [Ns] 250 ml IV ONCE 04/15/20 00:00 CT abdomen pelvis wo con Stat CT foot RT wo con Routine CT lower leg RT wo con Routine Piperacillin Sodium/Tazobactam [Zosyn] 2.25 gm 0.9 % Sodium Chloride [Ns] 50 ml IV Q8H 04/15/20 02:12 Piperacillin Sodium/Tazobactam [Zosyn] 2.25 gm IV .STK-MED ONE 04/15/20 02:26 vancomycin HCL 1,000 mg .ROUTE .STK-MED ONE 04/15/20 02:39 oxyCODONE HCl Immed Release [Roxicodone] 2.5 mg PO Q6H PRN 04/15/20 02:43 Consult to Urology Routine 04/15/20 06:03 Basic Metabolic Panel DAILY Complete Blood Count Auto Diff DAILY@0600 Magnesium Routine 04/15/20 07:26 Glucose, Whole Blood Routine 04/15/20 08:00 glyBURIDE [Diabeta] 5 mg PO BIDWM 04/15/20 08:54 Piperacillin Sodium/Tazobactam [Zosyn] 2.25 gm IV .STK-MED ONE 04/15/20 09:00 Aspirin 81 mg PO DAILY Atropine Sulfate 1 % Ophth Jacki 1 drop EYE-LEFT BID 04/15/20 09:12 Diabetic Diet 04/15/20 09:26 Sodium Polystyrene Sulfon/Sorb [Kayexalate] 15 gm PO ONCE ONE 04/15/20 12:17 Glucose, Whole Blood Routine 04/15/20 16:48 Glucose, Whole Blood Routine 04/15/20 16:52 Piperacillin Sodium/Tazobactam [Zosyn] 2.25 gm IV .STK-MED ONE 04/15/20 20:46 Glucose, Whole Blood Routine 04/16/20 00:23 Piperacillin Sodium/Tazobactam [Zosyn] 2.25 gm IV .STK-MED ONE 04/16/20 06:00 vancomycin HCL 750 mg vancomycin HCL 500 mg 0.9 % Sodium Chloride [Ns] 250 ml IV Q48H 04/16/20 07:41 Piperacillin Sodium/Tazobactam [Zosyn] 2.25 gm IV .STK-MED ONE 04/16/20 07:45 Glucose, Whole Blood Routine 04/16/20 07:55 Basic Metabolic Panel Stat Complete Blood Count Auto Diff Stat 04/16/20 11:32 Glucose, Whole Blood Routine 04/16/20 15:32 Piperacillin Sodium/Tazobactam [Zosyn] 2.25 gm IV .STK-MED ONE 04/16/20 16:02 Glucose, Whole Blood Routine 04/16/20 19:54 Glucose, Whole Blood Routine 04/16/20 23:43 Piperacillin Sodium/Tazobactam [Zosyn] 2.25 gm IV .STK-MED ONE 04/17/20 07:26 Glucose, Whole Blood Routine 04/17/20 07:51 Piperacillin Sodium/Tazobactam [Zosyn] 2.25 gm IV .STK-MED ONE 04/17/20 11:31 Glucose, Whole Blood Routine 04/17/20 11:49 Immunofixation Pnl, Serum Routine [place]/Lambda Light Chain Serum Routine PTHI Routine 04/17/20 11:50 IRON PROFILE Routine 04/17/20 12:03 US arterial duplex LE BI Routine 04/17/20 15:58 Piperacillin Sodium/Tazobactam [Zosyn] 2.25 gm IV .STK-MED ONE 04/17/20 16:34 Glucose, Whole Blood Routine 04/17/20 19:51 Glucose, Whole Blood Routine 04/17/20 23:18 Piperacillin Sodium/Tazobactam [Zosyn] 2.25 gm IV .STK-MED ONE 04/17/20 23:59 Complete Blood Count Auto Diff Stat Lactic Acid Stat 04/18/20 IR guard captain iliac Routine 04/18/20 07:01 Glucose, Whole Blood Routine 04/18/20 08:22 Piperacillin Sodium/Tazobactam [Zosyn] 2.25 gm IV .STK-MED ONE 04/18/20 08:35 Basic Metabolic Panel Routine Ferritin Routine IRON PROFILE Routine 04/18/20 09:18 Vital Signs PROTOCOL 04/18/20 11:36 Glucose, Whole Blood Routine 04/18/20 15:38 Piperacillin Sodium/Tazobactam [Zosyn] 2.25 gm IV .STK-MED ONE 04/18/20 16:04 Glucose, Whole Blood Routine 04/18/20 18:06 [id number] Routine 04/18/20 19:21 Glucose, Whole Blood Routine 04/18/20 19:26 Add Laboratory Test Routine 04/18/20 23:06 Piperacillin Sodium/Tazobactam [Zosyn] 2.25 gm IV .STK-MED ONE 04/19/20 IR us guide venous access Routine 04/19/20 00:01 NPO Diet 04/19/20 05:15 Basic Metabolic Panel DAILY@0600 04/19/20 07:20 Glucose, Whole Blood Routine 04/19/20 07:58 Dextrose 50 % [D50] 25 gm .ROUTE .STK-MED ONE 04/19/20 08:08 Dextrose 50 % [D50] 25 gm IVPUSH ONCE ONE 04/19/20 08:21 Piperacillin Sodium/Tazobactam [Zosyn] 2.25 gm IV .STK-MED ONE 04/19/20 08:31 Glucose, Whole Blood Routine 04/19/20 10:07 Lidocaine HCl 1 % MPF [Xylocaine 1 % MPF] 5 ml .ROUTE .STK-MED ONE iohexoL 300 MG/ML [Omnipaque 300 MG/ML] 100 ml .ROUTE .STK-MED ONE iohexoL 300 MG/ML [Omnipaque 300 MG/ML] 50 ml .ROUTE .STK-MED ONE 04/19/20 10:08 Heparin Sodium (Porcine)/NS/PF 2,000 unit in 1,000 ml IV As directed 04/19/20 10:12 Heparin Sodium,Porcine 10,000 unit IVPUSH .STK-MED ONE Midazolam HCl/PF [Versed] 2 mg .ROUTE .STK-MED ONE Naloxone HCl [Narcan] 0.4 mg .ROUTE .STK-MED ONE fentaNYL citrate/PF [Sublimaze] 50 mcg .ROUTE .STK-MED ONE flumazeniL [Romazicon] 0.05 mg .ROUTE .STK-MED ONE 04/19/20 11:53 Lidocaine HCl 1 % MPF [Xylocaine 1 % MPF] 10 ml SUBCUT ONCE ONE 04/19/20 11:54 iohexoL 300 MG/ML [Omnipaque 300 MG/ML] 50 ml IV ONCE ONE 04/19/20 11:55 iohexoL 300 MG/ML [Omnipaque 300 MG/ML] 100 ml IV ONCE ONE 04/19/20 12:00 Diabetic Diet 04/19/20 12:05 0.9 % Sodium Chloride [Ns] 1,000 ml IVCONT 100 mls/hr 04/19/20 12:08 Clopidogrel Bisulfate [Plavix] 300 mg PO ONCE ONE 04/19/20 12:09 Aspirin 325 mg PO ONCE ONE 04/19/20 12:41 Acetaminophen [Tylenol] 975 mg PO NOW STA 04/19/20 12:50 Acetaminophen [Tylenol] 325 mg .ROUTE .STK-MED ONE Aspirin 325 mg .ROUTE .STK-MED ONE Clopidogrel Bisulfate [Plavix] 300 mg .ROUTE .STK-MED ONE 04/19/20 14:45 Piperacillin Sodium/Tazobactam [Zosyn] 2.25 gm IV .STK-MED ONE 04/19/20 16:08 Glucose, Whole Blood Routine 04/19/20 20:10 Glucose, Whole Blood Routine 04/19/20 21:00 Famotidine [Pepcid] 20 mg PO BID 04/19/20 22:57 Piperacillin Sodium/Tazobactam [Zosyn] 2.25 gm IV .STK-MED ONE 04/20/20 CA lexiscan stress w vivienne Routine 04/20/20 05:33 Basic Metabolic Panel DAILY@0600 04/20/20 07:21 Glucose, Whole Blood Routine 04/20/20 08:33 Piperacillin Sodium/Tazobactam [Zosyn] 2.25 gm IV .STK-MED ONE 04/20/20 09:00 Aspirin 81 mg PO DAILY Clopidogrel Bisulfate [Plavix] 75 mg PO DAILY 04/20/20 11:10 NPO Diet 04/20/20 11:19 Glucose, Whole Blood Routine 04/20/20 11:33 NM vivienne perf SPECT rest & str Routine 04/20/20 11:45 hydroCHLOROthiazide [Microzide] 12.5 mg PO DAILY 04/20/20 15:38 Piperacillin Sodium/Tazobactam [Zosyn] 2.25 gm IV .STK-MED ONE 04/20/20 16:24 Glucose, Whole Blood Routine 04/20/20 17:27 cefTRIAXone sodium [Rocephin] 1 gm .ROUTE .STK-MED ONE 04/20/20 19:55 Glucose, Whole Blood Routine 04/20/20 23:41 Piperacillin Sodium/Tazobactam [Zosyn] 2.25 gm IV .STK-MED ONE 04/21/20 04:59 Basic Metabolic Panel DAILY@0600 Complete Blood Count Auto Diff Stat Lactic Acid Stat 04/21/20 07:23 Glucose, Whole Blood Routine 04/21/20 07:28 Piperacillin Sodium/Tazobactam [Zosyn] 2.25 gm IV .STK-MED ONE 04/21/20 09:00 CA echo transthoracic complete Routine 04/21/20 09:10 Aminophylline 500 mg IV .STK-MED ONE Regadenoson [Lexiscan] 0.4 mg .ROUTE .STK-MED ONE 04/21/20 11:05 CDiff with Reflex to PCR Routine 04/21/20 11:26 Loperamide HCl [Imodium] 2 mg PO ONCE ONE 04/21/20 11:37 Glucose, Whole Blood Routine 04/21/20 11:38 Sodium Ferric Gluconat/Sucrose [Ferrlecit] 125 mg 0.9 % Sodium Chloride [Ns] 100 ml IV ONCE 04/21/20 11:48 Add Laboratory Test Routine 04/21/20 12:33 Red Blood Cells Urgent Type and Screen Urgent Lactate Dehydrogenase Urgent Reticulocyte Count Urgent 04/21/20 16:21 Glucose, Whole Blood Routine 04/21/20 18:11 cefTRIAXone sodium [Rocephin] 1 gm .ROUTE .STK-MED ONE 04/21/20 18:14 Epoetin Tacho [Procrit] 20,000 unit SUBCUT ONCE ONE 04/21/20 20:07 Glucose, Whole Blood Routine 04/22/20 01:52 hydrALAZINE HCl [Apresoline] 5 mg IVPUSH ONCE ONE 04/22/20 06:07 Basic Metabolic Panel DAILY@0600 Complete Blood Count Auto Diff Routine Lipid Panel Routine 04/22/20 07:10 Glucose, Whole Blood Routine 04/22/20 09:00 Famotidine [Pepcid] 20 mg PO DAILY 04/22/20 10:12 Add Laboratory Test Routine 04/22/20 11:26 Glucose, Whole Blood Routine Laboratory Last Values WBC 13.2 X10*3/uL (4.8-10.8) H 04/22/20 06:07 RBC 2.86 X10*6/uL (4.20-5.50) L 04/22/20 06:07 Hgb 8.0 g/dl (12.0-16.0) L 04/22/20 06:07 Hct 25.9 % (37-47) L 04/22/20 06:07 MCV 90.6 fL (80-98) 04/22/20 06:07 MCH 28.0 pg (27.0-33.0) 04/22/20 06:07 MCHC 30.9 g/dl (31.0-35.0) L 04/22/20 06:07 RDW 13.1 % (11.0-16.0) 04/22/20 06:07 Plt Count 236 X10*3/uL (160-400) 04/22/20 06:07 MPV 10.1 fL (9.4-12.3) 04/22/20 06:07 Immature Gran % (Auto) 0.6 % (0.0-0.4) H 04/22/20 06:07 Neut % (Auto) 72.8 % (45-73) 04/22/20 06:07 Lymph % (Auto) 14.1 % (20-40) L 04/22/20 06:07 Ray % (Auto) 9.7 % (2-11) 04/22/20 06:07 Eos % (Auto) 2.3 % (0-4) 04/22/20 06:07 Baso % (Auto) 0.5 % (0-2) 04/22/20 06:07 Lymph # (Auto) 1.9 X10*3/uL (1.2-4.9) 04/22/20 06:07 Ray # (Auto) 1.3 X10*3/uL (0.1-1.2) H 04/22/20 06:07 Eos # (Auto) 0.3 X10*3/uL (0.0-0.4) 04/22/20 06:07 Baso # (Auto) 0.1 X10*3/uL (0.0-0.2) 04/22/20 06:07 Abs Immat Gran (auto) 0.08 X10*3/uL (0.00-0.03) H 04/22/20 06:07 Absolute Neuts (auto) 9.6 X10*3/uL (2.0-8.3) H 04/22/20 06:07 Absolute Nucleated RBC 0.000 X10*3/uL (0.0-0.012) 04/22/20 06:07 Nucleated RBC % (auto) 0.0 /100WBC (0.0-0.2) 04/22/20 06:07 ESR 114 MM/HR (0-20) H 04/14/20 21:49 Absolute Retic 0.032 X10*6/uL (0.026-0.095) 04/21/20 12:33 Percent Retic 1.2 % (0.5-1.8) 04/21/20 12:33 Immature Retic Fraction 12.5 % (3.0-15.9) 04/21/20 12:33 Retic Hgb Equivalent 27.9 pg (30.0-35.0) L 04/21/20 12:33 PT 12.8 SEC (10.8-13.0) 04/14/20 21:49 INR 1.1 (0.9-1.1) 04/14/20 21:49 APTT 36.8 SEC (24.1-38.0) 04/14/20 21:49 Sodium 141 mmol/L (135-145) 04/22/20 06:07 Potassium 4.0 mmol/L (3.3-5.1) 04/22/20 06:07 Chloride 114 mmol/L (96-108) H 04/22/20 06:07 Carbon Dioxide 19 mmol/L (22-29) L 04/22/20 06:07 Anion Gap 12 (12-20) 04/22/20 06:07 BUN 31 mg/dL (9-16) H 04/22/20 06:07 Creatinine 3.07 mg/dL (0.5-1.4) H 04/22/20 06:07 Estim Creat Clear Calc 17.7 04/22/20 06:07 Estimated GFR 15 04/22/20 06:07 POC Glucose 75 mg/dL (60-115) 04/22/20 11:26 Random Glucose 110 mg/dL (60-115) 04/22/20 06:07 Lactic Acid 0.6 mmol/L (0.5-2.0) 04/21/20 04:59 Calcium 7.5 mg/dL (8.4-10.2) L 04/22/20 06:07 Magnesium 2.0 mg/dL (1.6-2.6) 04/15/20 06:03 Magnesium Cancelled 04/15/20 06:03 Iron 21 mcg/dL (30-160) L 04/18/20 08:35 TIBC 187 mcg/dL (228-428) L 04/18/20 08:35 % Saturation 11 % (15-50) L 04/18/20 08:35 Unsat Iron Binding 166 ug/dL 04/18/20 08:35 Ferritin 218 ng/mL (10-250) 04/18/20 08:35 Total Bilirubin 0.3 mg/dL (0.0-1.0) 04/14/20 21:49 AST 18 U/L (5-31) 04/14/20 21:49 ALT < 6 U/L (0-31) 04/14/20 21:49 Alkaline Phosphatase 78 U/L (39-117) 04/14/20 21:49 Lactate Dehydrogenase 250 U/L (122-220) H 04/21/20 12:33 Total Protein 7.3 g/dL (6.5-8.0) 04/14/20 21:49 Albumin 3.5 g/dL (3.5-5.0) 04/14/20 21:49 Triglycerides 144 mg/dL 04/22/20 06:07 Cholesterol 219 mg/dL 04/22/20 06:07 LDL Cholesterol, Calc 160 mg/dl 04/22/20 06:07 HDL Cholesterol 31 mg/dL 04/22/20 06:07 Lipase 66 U/L (8-78) 04/14/20 21:49 PTH Intact 75 pg/mL (14-64) H 04/17/20 11:49 Calcium (PTH Intact) 8.1 mg/dL (8.6-10.4) L 04/17/20 11:49 Urine Color YELLOW 04/14/20 23:03 Urine Appearance CLOUDY 04/14/20 23:03 Urine pH 6.0 (5.0-8.0) 04/14/20 23:03 Ur Specific [place] 1.020 (1.005-1.025) 04/14/20 23:03 Urine Protein 2+ MG/DL (NEG-TRACE) H 04/14/20 23:03 Urine Glucose (UA) 100 MG/DL (NEG) H 04/14/20 23:03 Urine Ketones NEG MG/DL (NEG) 04/14/20 23:03 Urine Blood 2+ (NEG) H 04/14/20 23:03 Urine Nitrite POS (NEG) H 04/14/20 23:03 Ur Leukocyte Esterase 2+ (NEG) H 04/14/20 23:03 Urine RBC 1-4 /HPF (0) 04/14/20 23:03 Urine WBC TNTC /HPF (0-4) H 04/14/20 23:03 Ur Squamous Epith Cells 1+ /LPF 04/14/20 23:03 Urine Bacteria 2+ /LPF 04/14/20 23:03 Urine Mucus TRACE /LPF 04/14/20 23:03 Stool Occult Blood NEG (NEG) 04/18/20 18:06 IgG Total 1357 mg/dL (600-1540) 04/17/20 11:49 IgA Total 213 mg/dL (70-320) 04/17/20 11:49 IgM 37 mg/dL (50-300) L 04/17/20 11:49 [place]/Lambda Ratio 2.37 (1.29-2.55) 04/17/20 11:49 ALBERTA Interpretation SEE NOTE 04/17/20 11:49 [place] Light Chain Anal 368 mg/dL (176-443) 04/17/20 11:49 Lambda Light Chain Anal 155 mg/dL (91-240) 04/17/20 11:49 C. difficile Toxin A&B Negative (Negative) 04/21/20 11:05 C. difficile Antigen Negative (Negative) 04/21/20 11:05 C. difficile Interpret SEE NOTE 04/21/20 11:05 COVID-19 (CHANTELLE) Negative (Negative) 04/14/20 21:50 COVID-19 Clin Com See Note 04/14/20 21:50 Blood Type O Positive 04/21/20 12:33 Antibody Screen NEGATIVE 04/21/20 12:33 Crossmatch See Detail 04/21/20 12:33 - Imaging Radiologist's impression: ITS Impressions Foot X-Ray 04/14/20 21:05 IMPRESSION: Findings highly concerning for osteomyelitis involving the tip of the terminal phalanx of the right great toe. Abdomen/Pelvis CT 04/15/20 00:00 IMPRESSION: 1. Extensive facet arthropathy of the lower lumbar spine. 2. Thick-walled appearance of the urinary bladder may be due to underdistention. Small focus of gas is present which could be due to recent catheterization versus infection in the proper clinical setting. Lower Extremity CT 04/15/20 00:00 IMPRESSION: Diffuse superficial edema involving posterior right lower leg extending into the anterior and posterior compartments of right foot and into the right great toe. There is a focal gas collection seen along the dorsal tip of the right great toe, but no drainable abscess seen. There is no bony erosive changes, periosteal thickening or fracture seen in the right lower extremity or the right foot. The joint spaces are maintained throughout. There is atherosclerotic calcification of anterior and posterior tibial arteries with posterior tibial artery continuing into the right foot. Foot CT 04/15/20 00:45 IMPRESSION: Diffuse superficial edema involving posterior right lower leg extending into the anterior and posterior compartments of right foot and into the right great toe. There is a focal gas collection seen along the dorsal tip of the right great toe, but no drainable abscess seen. There is no bony erosive changes, periosteal thickening or fracture seen in the right lower extremity or the right foot. The joint spaces are maintained throughout. There is atherosclerotic calcification of anterior and posterior tibial arteries with posterior tibial artery continuing into the right foot. Duplex Scan Lower Extremity Artery 04/17/20 12:03 IMPRESSION: Marked bilateral peripheral vascular disease bilateral SFA occlusions and monophasic flow in the common femoral arteries suggestive of severe inflow disease. Recent noncontrast CT scan demonstrated considerable atherosclerotic plaque in the aorta and iliac vessels but without IV contrast, the luminal inflow cannot be assessed. CT angiography would be helpful for further evaluation. If the patient's creatinine precludes this, MR angiography may be of value, possibly even with iron contrast agents. Myocardial Perfusion Scan Nuc Med 04/20/20 11:33 Impression: 1. Myocardial perfusion imaging study shows moderate size inferior wall ischemia, however this may be underestimated given the TID and change in ejection fraction at rest 2. Gated LVEF is 41% with stress and 58% with rest 3. Transient ischemic dilatation present EKG is nondiagnostic for ischemia Progress Note: A/P (1) Anemia Start date: 04/22/20 (The evaluation is still in progress. Recommend transfusion of red cells if she becomes asymptomatic. I will cover this weekend.) Status: Acute - Time Spent With Patient Total time spent is greater than 50% in coordination of care (as documented) at patient's floor/unit and/or counseling patient: 15 - 24 minutes
[2020-04-22 13:09] LABS: Folate 9.8 ng/mL (> or = 4.0); Vitamin B12 159 pg/mL (200-900)
--- NOTE | 2020-04-22 13:38 | PM.PNCARD ---
Subjective Subjective Date of Service: 04/22/20 Interval history: Spiked fever yesterday. Quite confused this morning. Denying any symptoms. Was refusing medications but agreeable to take medications now. Nuclear stress test was high risk showing transient ischemic dilatation pointing towards multivessel disease. Review of Systems Review of Systems Limited. Denying any chest discomfort. Physical Exam Vital Signs: Last Vital Signs Temp 99.1 F 04/22/20 11:50 Pulse 87 04/22/20 11:50 Resp 20 04/22/20 11:50 BP 158/76 H 04/22/20 11:50 Pulse Ox 94 04/22/20 11:50 Body Mass Index 32.3 GENERAL APPEARANCE: in no acute distress, legally blind. HEENT: unremarkable. HEAD: normocephalic, atraumatic. HEART: no murmurs, regular rate and rhythm, S1, S2 normal. LUNGS: clear to auscultation bilaterally. ABDOMEN: normal, bowel sounds present, soft, nontender, nondistended. EXTREMITIES: no clubbing, cyanosis, or edema. NEUROLOGIC: nonfocal, alert and oriented. Blind. PSYCH: Depressed. Results Labs and Meds Result diagrams: 04/22/20 06:07 04/22/20 06:07 Lab results: Laboratory Results - last 24 hr 04/17/20 04/21/20 04/21/20 11:49 04:59 12:33 WBC RBC Hgb Hct MCV MCH MCHC RDW Plt Count MPV Immature Gran % (Auto) Neut % (Auto) Lymph % (Auto) [place] % (Auto) Eos % (Auto) Baso % (Auto) Lymph # (Auto) [place] # (Auto) Eos # (Auto) Baso # (Auto) Abs Immat Gran (auto) Absolute Neuts (auto) Absolute Nucleated RBC Nucleated RBC % (auto) Sodium Potassium Chloride Carbon Dioxide Anion Gap BUN Creatinine Estim Creat Clear Calc Estimated GFR POC Glucose Random Glucose Calcium Triglycerides Cholesterol LDL Cholesterol, Calc HDL Cholesterol Vitamin B12 159 L Folate 9.8 [place]/Lambda Ratio 2.37 [place] Light Chain Anal 368 Lambda Light Chain Anal 155 Blood Type O Positive Antibody Screen NEGATIVE Crossmatch See Detail 04/21/20 04/21/20 04/22/20 16:21 20:07 06:07 WBC RBC Hgb Hct MCV MCH MCHC RDW Plt Count MPV Immature Gran % (Auto) Neut % (Auto) Lymph % (Auto) [place] % (Auto) Eos % (Auto) Baso % (Auto) Lymph # (Auto) [place] # (Auto) Eos # (Auto) Baso # (Auto) Abs Immat Gran (auto) Absolute Neuts (auto) Absolute Nucleated RBC Nucleated RBC % (auto) Sodium 141 Potassium 4.0 Chloride 114 H Carbon Dioxide 19 L Anion Gap 12 BUN 31 H Creatinine 3.07 H Estim Creat Clear Calc 17.7 Estimated GFR 15 POC Glucose 161 H 199 H Random Glucose 110 Calcium 7.5 L Triglycerides 144 Cholesterol 219 LDL Cholesterol, Calc 160 HDL Cholesterol 31 Vitamin B12 Folate [place]/Lambda Ratio [place] Light Chain Anal Lambda Light Chain Anal Blood Type Antibody Screen Crossmatch 04/22/20 04/22/20 04/22/20 06:07 07:10 11:26 WBC 13.2 H RBC 2.86 L Hgb 8.0 L Hct 25.9 L MCV 90.6 MCH 28.0 MCHC 30.9 L RDW 13.1 Plt Count 236 MPV 10.1 Immature Gran % (Auto) 0.6 H Neut % (Auto) 72.8 Lymph % (Auto) 14.1 L [place] % (Auto) 9.7 Eos % (Auto) 2.3 Baso % (Auto) 0.5 Lymph # (Auto) 1.9 [place] # (Auto) 1.3 H Eos # (Auto) 0.3 Baso # (Auto) 0.1 Abs Immat Gran (auto) 0.08 H Absolute Neuts (auto) 9.6 H Absolute Nucleated RBC 0.000 Nucleated RBC % (auto) 0.0 Sodium Potassium Chloride Carbon Dioxide Anion Gap BUN Creatinine Estim Creat Clear Calc Estimated GFR POC Glucose 91 75 Random Glucose Calcium Triglycerides Cholesterol LDL Cholesterol, Calc HDL Cholesterol Vitamin B12 Folate [place]/Lambda Ratio [place] Light Chain Anal Lambda Light Chain Anal Blood Type Antibody Screen Crossmatch Imaging Radiologist's impression: Impressions Chest X-Ray 04/22/20 12:30 IMPRESSION: Low lung volumes with subtle hazy opacity in the right lower lobe that may reflect atelectasis or developing infiltrate. Progress Note: A&P Assessment and plan (1) Essential hypertension: Status: Acute (2) PAD (peripheral artery disease): Status: Acute (3) Preoperative cardiovascular examination: Status: Acute Assessment and Plan: 75-year-old female with diabetes, chronic kidney disease and peripheral vascular disease. She was being assessed for aortobifem bypass surgery for nonhealing wound on leg. She underwent echocardiography which did not show any significant issues but nuclear stress tests is showing inferior perfusion defect as well as transient ischemic dilatation pointing to her multivessel disease. I think with her risk factors it is likely that she has underlying multivessel disease. I think she is high risk for surgery at this stage. Unfortunately she is quite unstable with confusion and fevers ongoing and I feel currently we cannot do further testing for coronary disease. As she improves we can rediscuss this. She also has been refusing medications and has agreed to take medications today. Her blood pressure is quite elevated. I think the metoprolol should be increased to 50 mg twice a day. Her amlodipine should be increased to 10 mg once a day. She does not want to take baby aspirin and has been adamant that she wants to take 325 mg of aspirin. She should stay on PPI. Thank you for allowing me to participate in the care of your patient. Please feel free to contact me if you have any questions. Fall Risk Details Current Medications: Current Medications Generic Name Dose Route Start Last Admin Trade Name Freq PRN Reason Stop Dose Admin Acetaminophen 650 mg 04/14/20 23:06 04/22/20 02:43 Acetaminophen 325 Mg Tablet PO 650 mg Q6H PRN Administration Pain, Mild (Pain Scale 1-3) Amlodipine Besylate 10 mg 04/23/20 09:00 Amlodipine Besylate 5 Mg Tablet PO DAILY [facility] Protocol Ascorbic Acid 500 mg 04/17/20 13:30 04/22/20 08:12 Ascorbic Acid 500 Mg Tablet PO 500 mg DAILY RAUL Administration Aspirin 325 mg 04/22/20 09:00 04/22/20 08:12 Aspirin 325 Mg Tablet PO 325 mg DAILY RAUL Administration Atorvastatin Calcium 80 mg 04/22/20 21:00 Atorvastatin Calcium 80 Mg Tablet PO BEDTIME RAUL Atropine Sulfate 1 drop 04/15/20 09:00 04/22/20 08:15 Atropine Sulfate 1 % Ophth Jacki 2 Ml Bottle EYE-LEFT 1 drop TID RAUL Administration Calcium Carbonate/Cholecalciferol 500 mg 04/17/20 13:30 04/22/20 08:04 Calcium + Vitamin D 250 Mg Tablet PO 500 mg DAILY RAUL Administration Docusate Sodium 100 mg 04/15/20 09:00 04/22/20 08:20 Docusate Sodium 100 Mg Capsule PO Not Given BID [facility] Glyburide 5 mg 04/21/20 09:00 04/22/20 08:12 Glyburide 5 Mg Tablet PO 5 mg DAILY RAUL Administration Guaifenesin/Dextromethorphan 10 ml 04/22/20 09:30 04/22/20 10:09 Guaifenesin Dm 100/10/5 Ml 5 Ml Syrup PO 10 ml Q6H RAUL Administration Sodium Chloride 1,000 mls @ 75 mls/hr 04/18/20 09:30 04/22/20 05:11 Ns IVCONT 75 mls/hr .[id number] [facility] Administration Ceftriaxone Sodium 1 gm/ 50 mls @ 100 mls/hr 04/20/20 17:00 04/21/20 18:46 Sodium Chloride IV Infused Q24H [facility] Infusion Metronidazole 500 mg in 100 mls @ 100 mls/hr 04/21/20 16:00 04/22/20 09:56 Flagyl IV Infused Q8H [facility] Infusion Insulin Human Lispro 0 unit 04/15/20 07:30 04/22/20 13:28 Insulin Lispro 100 Unit/Ml 3 Ml Vial SUBCUT Not Given QIDACHS [facility] Protocol Lidocaine 2 patch 04/15/20 09:15 04/22/20 08:02 Lidocaine 4 % Patch Adh..Patch TRANSDERMA 2 patch DAILY [facility] Administration Protocol Metoprolol Tartrate 25 mg 04/22/20 21:00 Metoprolol Tartrate 25 Mg Tablet PO BID [facility] Protocol Omeprazole 20 mg 04/22/20 06:30 04/22/20 05:55 Omeprazole 20 Mg Capsule.Dr PO Not Given DAILY@0630 [facility] Pharmacy Consult 1 each 04/14/20 23:02 Consult Rx Vancomycin Dosing MISCELLANE DAILY PRN Consult order Prednisolone Acetate 1 drop 04/15/20 09:00 04/22/20 08:15 Prednisolone Acetate 1 % Oph Susp 5 Ml Drpbtl EYE-LEFT 1 drop DAILY [facility] Administration Senna 17.2 mg 04/14/20 23:06 Sennosides 8.6 Mg Tablet PO BEDTIME PRN Constipation Sodium Chloride 3 ml 04/15/20 00:00 04/22/20 08:11 0.9 % Sodium Chloride Flush 3 Ml Syringe IVFLUSH 3 ml QSHIFT [facility] Administration Timolol Maleate 1 drop 04/15/20 09:00 04/22/20 08:38 Timolol Maleate Xe 0.25 % Gel 5 Ml Drbtl EYE-RIGHT 1 drop DAILY RAUL Administration Time Spent With Patient Time: Total time spent is greater than 50% in coordination of care (as documented) at patient's floor/unit and/or counseling patient: Time with patient: less than 15 minutes
--- NOTE | 2020-04-22 14:51 | PM.IDPN ---
Subjective Subjective Date of Service: 04/22/20 Interval History: patient offers no complaints Objective Data Labs CBC & Chem 7: 04/22/20 06:07 04/22/20 06:07 Labs: Laboratory Results - last 24 hr 04/17/20 04/21/20 04/21/20 11:49 04:59 12:33 WBC RBC Hgb Hct MCV MCH MCHC RDW Plt Count MPV Immature Gran % (Auto) Neut % (Auto) Lymph % (Auto) [place] % (Auto) Eos % (Auto) Baso % (Auto) Lymph # (Auto) [place] # (Auto) Eos # (Auto) Baso # (Auto) Abs Immat Gran (auto) Absolute Neuts (auto) Absolute Nucleated RBC Nucleated RBC % (auto) Sodium Potassium Chloride Carbon Dioxide Anion Gap BUN Creatinine Estim Creat Clear Calc Estimated GFR POC Glucose Random Glucose Calcium Triglycerides Cholesterol LDL Cholesterol, Calc HDL Cholesterol Vitamin B12 159 L Folate 9.8 [place]/Lambda Ratio 2.37 [place] Light Chain Anal 368 [place] Light Chain Anal 155 Blood Type O Positive Antibody Screen NEGATIVE Crossmatch See Detail 04/21/20 04/21/20 04/22/20 16:21 20:07 06:07 WBC RBC Hgb Hct MCV MCH MCHC RDW Plt Count MPV Immature Gran % (Auto) Neut % (Auto) Lymph % (Auto) [place] % (Auto) Eos % (Auto) Baso % (Auto) Lymph # (Auto) [place] # (Auto) Eos # (Auto) Baso # (Auto) Abs Immat Gran (auto) Absolute Neuts (auto) Absolute Nucleated RBC Nucleated RBC % (auto) Sodium 141 Potassium 4.0 Chloride 114 H Carbon Dioxide 19 L Anion Gap 12 BUN 31 H Creatinine 3.07 H Estim Creat Clear Calc 17.7 Estimated GFR 15 POC Glucose 161 H 199 H Random Glucose 110 Calcium 7.5 L Triglycerides 144 Cholesterol 219 LDL Cholesterol, Calc 160 HDL Cholesterol 31 Vitamin B12 Folate [place]/Lambda Ratio [place] Light Chain Anal Lambda Light Chain Anal Blood Type Antibody Screen Crossmatch 04/22/20 04/22/20 04/22/20 06:07 07:10 11:26 WBC 13.2 H RBC 2.86 L Hgb 8.0 L Hct 25.9 L MCV 90.6 MCH 28.0 MCHC 30.9 L RDW 13.1 Plt Count 236 MPV 10.1 Immature Gran % (Auto) 0.6 H Neut % (Auto) 72.8 Lymph % (Auto) 14.1 L [place] % (Auto) 9.7 Eos % (Auto) 2.3 Baso % (Auto) 0.5 Lymph # (Auto) 1.9 [place] # (Auto) 1.3 H Eos # (Auto) 0.3 Baso # (Auto) 0.1 Abs Immat Gran (auto) 0.08 H Absolute Neuts (auto) 9.6 H Absolute Nucleated RBC 0.000 Nucleated RBC % (auto) 0.0 Sodium Potassium Chloride Carbon Dioxide Anion Gap BUN Creatinine Estim Creat Clear Calc Estimated GFR POC Glucose 91 75 Random Glucose Calcium Triglycerides Cholesterol LDL Cholesterol, Calc HDL Cholesterol Vitamin B12 Folate [place]/Lambda Ratio [place] Light Chain Anal Lambda Light Chain Anal Blood Type Antibody Screen Crossmatch Microbiology Microbiology Results: Microbiology 04/21/20 05:05 Blood - Venous Blood Culture - Preliminary No growth after 24 hours. 04/21/20 04:59 Blood - Venous Blood Culture - Preliminary No growth after 24 hours. 04/18/20 00:12 Blood - Venous Blood Culture - Preliminary No growth after 48 hours. 04/18/20 00:16 Blood - Venous Blood Culture - Preliminary No growth after 48 hours. 04/14/20 21:49 Blood - Venous Blood Culture - Final No growth after 5 days. 04/14/20 21:49 Blood - Venous Blood Culture - Final No growth after 5 days. 04/14/20 Unknown Urine clean catch - Clean Catch Midstream Urine Culture - Final Klebsiella pneumoniae Physical Exam Vital Signs: Vital Signs: Last Vital Signs Temp 99.1 F 04/22/20 11:50 Pulse 87 04/22/20 11:50 Resp 20 04/22/20 11:50 BP 158/76 H 04/22/20 11:50 Pulse Ox 94 04/22/20 11:50 Body Mass Index 32.3 Const: General: cooperative HENMT: Head: Yes normal to inspection Resp: Effort & Inspection: normal respiratory effort Cardio: Rate: regular rate Rhythm: regular rhythm Assessment and Plan Assessment and plan (1) UTI due to Klebsiella species: Problem details: She is on antibiotics Some fever may be due to diabetic foot infection She seems to have no rash or reaction to antibiotics Status: Acute Assessment and Plan: Continue Ceftriaxone OK infection point of view for surgical intervention at this time (2) Diabetic foot infection: Problem details: continue antibiotics,plan per Dr Blood Status: Acute Time Spent With Patient Time: Total time spent is greater than 50% in coordination of care (as documented) at patient's floor/unit and/or counseling patient: Time with patient: 15 - 24 minutes
[2020-04-22 16:05] LABS: Glucose, Whole Blood 81 mg/dL (60-115)
--- NOTE | 2020-04-22 17:03 | PM.PNNEP ---
Subjective Subjective Date of Service: 04/22/20 Interval history: Seen and examined. Events noted Physical Exam Vital Signs: Vital Signs: Last Vital Signs Temp 97.4 F 04/22/20 15:23 Pulse 90 04/22/20 15:23 Resp 20 04/22/20 15:23 BP 163/68 H 04/22/20 15:23 Pulse Ox 94 04/22/20 15:23 Body Mass Index 32.3 Const: General: cooperative, no acute distress and awake Orientation/consciousness: oriented to person and oriented to place Limitations: no limitations HENMT: Head: Yes normal to inspection, Yes normocephalic and Yes atraumatic Ears: external ears normal General nose exam: Normal external nose present Face and sinus: Yes normal facial exam Mouth: Normal oral and palatal mucosa present Throat: Yes posterior oropharynx normal Eyes: General: appearance normal, both eyes and all related structures Periorbital: periorbital findings normal Eyelids: Yes eyelids normal Conjunctivae: conjunctivae normal Sclerae: sclerae normal Corneas: corneas normal Pupils: Equal, round and reactive pupils present Neck: Neck: Yes full ROM, Yes no lymphadenopathy, Yes no meningeal signs, Yes trachea midline, Yes supple and Yes no JVD Carotids: no bruits Chest: Chest palpation & inspection: normal inspection of the chest and normal palpation of entire chest wall Resp: Effort & Inspection: normal respiratory effort and able to speak in complete sentences Auscultation: clear to auscultation bilaterally Cardio: Rate: regular rate and tachycardic Rhythm: regular rhythm Heart sounds: S1 normal heart sound present, S2 normal heart sound present and no murmurs Bruits: no carotid bruits Peripheral pulses: other (Unable to plapate DP, PT bilaterally) GI: Inspection: Yes normal to inspection Palpation (GI): Soft to palpation, nontender, no guarding, not rigid and No hepatosplenomegaly present : General: Yes no CVA tenderness Back/Spine/Pelvis: Back: no CVA tenderness Cervical Spine: normal cervical lordosis Thoracic/Lumbar Spine: thoracic and lumbar spine normal to inspection and paraspinal muscle tenderness bilaterally in the mid lumbar and in the lower lumbar Skin: Other: Improving erythema of the Right foot and less tenderness to palpation. No drainage. General skin exam: no rashes or lesions noted Lesions: no lesions Rashes: other (Right great toe infection) Wounds: no wounds Hair: normal Neuro: General: oriented to person, oriented to place and no meningeal signs Cranial nerves: Yes CN's II-XII intact bilaterally and Yes Equal, round and reactive pupils present Cognition (Neuro): normal cognition Speech: Abnormal speech present Motor exam (neuro): 5/5 motor strength present throughout Extrem: Other: great toe black tip,mild proximal cellulitis General: Yes normal to inspection, Yes full ROM, Yes no clubbing, cyanosis or edema, No clubbing, No cyanosis and No edema Psych: Appearance: well kempt Mental Status: mental status grossly normal Speech and movement: Normal speech and movement present Affect: normal affect Attitude: cooperative Thought process: Normal thought process present Thought content: Normal thought content present Objective Data Labs CBC & Chem 7: 04/22/20 06:07 04/22/20 06:07 Labs: Laboratory Results - last 24 hr 04/21/20 04/21/20 04/21/20 04:59 12:33 20:07 WBC RBC Hgb Hct MCV MCH MCHC RDW Plt Count MPV Immature Gran % (Auto) Neut % (Auto) Lymph % (Auto) [place] % (Auto) Eos % (Auto) Baso % (Auto) Lymph # (Auto) [place] # (Auto) Eos # (Auto) Baso # (Auto) Abs Immat Gran (auto) Absolute Neuts (auto) Absolute Nucleated RBC Nucleated RBC % (auto) Sodium Potassium Chloride Carbon Dioxide Anion Gap BUN Creatinine Estim Creat Clear Calc Estimated GFR POC Glucose 199 H Random Glucose Calcium Triglycerides Cholesterol LDL Cholesterol, Calc HDL Cholesterol Vitamin B12 159 L Folate 9.8 Blood Type O Positive Antibody Screen NEGATIVE Crossmatch See Detail 04/22/20 04/22/20 04/22/20 06:07 06:07 07:10 WBC 13.2 H RBC 2.86 L Hgb 8.0 L Hct 25.9 L MCV 90.6 MCH 28.0 MCHC 30.9 L RDW 13.1 Plt Count 236 MPV 10.1 Immature Gran % (Auto) 0.6 H Neut % (Auto) 72.8 Lymph % (Auto) 14.1 L [place] % (Auto) 9.7 Eos % (Auto) 2.3 Baso % (Auto) 0.5 Lymph # (Auto) 1.9 [place] # (Auto) 1.3 H Eos # (Auto) 0.3 Baso # (Auto) 0.1 Abs Immat Gran (auto) 0.08 H Absolute Neuts (auto) 9.6 H Absolute Nucleated RBC 0.000 Nucleated RBC % (auto) 0.0 Sodium 141 Potassium 4.0 Chloride 114 H Carbon Dioxide 19 L Anion Gap 12 BUN 31 H Creatinine 3.07 H Estim Creat Clear Calc 17.7 Estimated GFR 15 POC Glucose 91 Random Glucose 110 Calcium 7.5 L Triglycerides 144 Cholesterol 219 LDL Cholesterol, Calc 160 HDL Cholesterol 31 Vitamin B12 Folate Blood Type Antibody Screen Crossmatch 04/22/20 04/22/20 11:26 15:59 WBC RBC Hgb Hct MCV MCH MCHC RDW Plt Count MPV Immature Gran % (Auto) Neut % (Auto) Lymph % (Auto) [place] % (Auto) Eos % (Auto) Baso % (Auto) Lymph # (Auto) [place] # (Auto) Eos # (Auto) Baso # (Auto) Abs Immat Gran (auto) Absolute Neuts (auto) Absolute Nucleated RBC Nucleated RBC % (auto) Sodium Potassium Chloride Carbon Dioxide Anion Gap BUN Creatinine Estim Creat Clear Calc Estimated GFR POC Glucose 75 81 Random Glucose Calcium Triglycerides Cholesterol LDL Cholesterol, Calc HDL Cholesterol Vitamin B12 Folate Blood Type Antibody Screen Crossmatch Microbiology Microbiology Results: Microbiology 04/21/20 05:05 Blood - Venous Blood Culture - Preliminary No growth after 24 hours. 04/21/20 04:59 Blood - Venous Blood Culture - Preliminary No growth after 24 hours. 04/18/20 00:12 Blood - Venous Blood Culture - Preliminary No growth after 48 hours. 04/18/20 00:16 Blood - Venous Blood Culture - Preliminary No growth after 48 hours. 04/14/20 21:49 Blood - Venous Blood Culture - Final No growth after 5 days. 04/14/20 21:49 Blood - Venous Blood Culture - Final No growth after 5 days. 04/14/20 Unknown Urine clean catch - Clean Catch Midstream Urine Culture - Final Klebsiella pneumoniae Assessment & Plan Assessment and plan (1) Osteomyelitis of great toe of right foot: Status: Acute (2) Acute kidney injury: Status: Acute (3) Diabetic foot infection: Problem details: continue antibiotics,plan per Dr Blood Status: Acute (4) Essential hypertension: Status: Acute (5) PAD (peripheral artery disease): Status: Acute Assessment and Plan: . 75-year-old female with a past medical history of hypertension, hyperlipidemia, diabetes, legally blind, lives alone presented to the hospital with a chief complaint of right lower extremity pain w/u c/w osteo and isxchemic leg s/p angio and now being eval for vasc leg bypass 1. KRYSTYNA: cont incr Scr today; multoifact including IV dye load; active infection and uncontrolled HTN 2. 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 Anemia: epo and Fe def 4. PVDz 5. Uncontrolled HTN: refusing meds on/off 6. Blind 7. Ques competnecy given her refusal of BP meds and xfusion REC: track UOP/renal fumc; encourage her to take meds and xfusion; procrit as noted; PO Fe ( avoid IV Fe given active infection). Time Spent With Patient Time: Total time spent is greater than 50% in coordination of care (as documented) at patient's floor/unit and/or counseling patient:
[2020-04-22] MEDS: cefTRIAXone sodium 1 GM in 0.9 % Sodium Chloride 50 ML IV (18:23)
[2020-04-22 19:47] LABS: Glucose, Whole Blood 85 mg/dL (60-115)
[2020-04-22] MEDS: Metoprolol Tartrate 25 MG TABLET PO (20:41)
[2020-04-22] MEDS: Atorvastatin Calcium 80 MG TABLET PO (20:41)
[2020-04-23] MEDS: metroNIDAZOLE/NS 500 MG/100 ML PIGGYBACK 100 MG IV ×4 (00:38→23:24)
[2020-04-23 03:35] VITALS: BP 174/69; PULSE 91; RESP 18; TEMP 37.3; O2SAT 96
[2020-04-23] MEDS: guaiFENesin DM 100/10/5 ML 5 ML SYRUP 10 ML PO ×4 (03:36→21:01)
[2020-04-23 06:28] LABS: MANUAL DIFF FLAG NO
[2020-04-23 06:46] LABS: Basophils Absolute Auto 0.1 X10*3/uL (0.0-0.2); Basophils Percent Auto 0.5 % (0-2); Eosinophils Absolute Auto 0.3 X10*3/uL (0.0-0.4); Eosinophils Percent Auto 2.3 % (0-4); Hematocrit 26.2 % (37-47); Hemoglobin 8.1 g/dl (12.0-16.0); Imm Gran Abs Auto 0.07 X10*3/uL (0.00-0.03); Imm Gran Pct Auto 0.5 % (0.0-0.4); Lymphocytes Percent Auto 15.3 % (20-40); Mean Corpuscular HGB Conc 30.9 g/dl (31.0-35.0); Mean Corpuscular Hemoglobin 28.1 pg (27.0-33.0); Mean Platelet Volume 10.4 fL (9.4-12.3); Monocytes Absolute Auto 1.2 X10*3/uL (0.1-1.2); Monocytes Percent Auto 9.2 % (2-11); Neutrophils Absolute Auto 9.4 X10*3/uL (2.0-8.3); Neutrophils Percent Auto 72.2 % (45-73); Platelet Count 251 X10*3/uL (160-400); Red Blood Count 2.88 X10*6/uL (4.20-5.50); Red Cell Distribution Width 13.2 % (11.0-16.0)
[2020-04-23 07:19] VITALS: BP 152/68; PULSE 92; RESP 18; TEMP 37.2; O2SAT 95
[2020-04-23 08:00] LABS: Glucose, Whole Blood 42 mg/dL (60-115)
[2020-04-23 08:01] LABS: Anion Gap 13 (12-20); Blood Urea Nitrogen 31 mg/dL (9-16); Calcium 7.4 mg/dL (8.4-10.2); Carbon Dioxide 18 mmol/L (22-29); Chloride 113 mmol/L (96-108); Estimated Glomerular Filt Rate 16; Glucose Random 48 mg/dL (60-115); Potassium 3.9 mmol/L (3.3-5.1); Sodium 140 mmol/L (135-145)
[2020-04-23 08:31] LABS: Glucose, Whole Blood 72 mg/dL (60-115)
[2020-04-23] MEDS: Metoprolol Tartrate 25 MG TABLET PO ×2 (08:45→12:06)
[2020-04-23] MEDS: Aspirin 325 MG TABLET PO (08:45)
[2020-04-23] MEDS: Ascorbic Acid 250 MG TABLET PO ×2 (08:46→21:03)
[2020-04-23] MEDS: Docusate Sodium 100 MG CAPSULE PO ×2 (08:46→21:02)
[2020-04-23] MEDS: Ferrous Sulfate 324 MG TABLET.DR PO ×2 (08:46→16:45)
[2020-04-23] MEDS: amLODIPine Besylate 5 MG TABLET 10 MG PO (08:51)
[2020-04-23] MEDS: Lidocaine 4 % Patch ADH..PATCH 2 PATCH TRANSDERMA (08:59)
[2020-04-23] MEDS: Calcium + Vitamin D 250 MG TABLET 500 MG PO (09:00)
[2020-04-23 09:09] LABS: Glucose, Whole Blood 120 mg/dL (60-115)
[2020-04-23] MEDS: Atropine Sulfate 1 % Ophth Sol 2 ML BOTTLE 1 DROP EYE-LEFT ×3 (10:28→21:03)
[2020-04-23] MEDS: prednisoLONE Acetate 1 % Oph Susp 5 ML DRPBTL 1 DROP EYE-LEFT (10:28)
[2020-04-23] MEDS: 0.9 % Sodium Chloride 1,000 ML 75 ML IVCONT (10:31)
[2020-04-23] MEDS: 0.9 % Sodium Chloride Flush 3 ML SYRINGE IVFLUSH ×3 (10:31→23:27)
[2020-04-23 11:14] VITALS: BP 142/72; PULSE 87; RESP 20; TEMP 36.8; O2SAT 92
[2020-04-23 11:33] LABS: Glucose, Whole Blood 151 mg/dL (60-115)
--- NOTE | 2020-04-23 13:40 | HO.PM.IMPN ---
Subjective Subjective Date of Service: 04/23/20 Interval History: Patient offers no acute complaints but enquiring about all the medicines, she wants to know why she is getting high dose of Lipitor and want to know other reasons in dosages of all antihypertensive medication otherwise denies any chest pain, no shortness of breath or palpitation. ROS General no headache, no dizziness, no fever chills. CVS no chest pain, no palpitation. Respiratory no cough, no shortness of breath Gastrointestinal no nausea no vomiting, no abdominal pain, no diarrhea Physical Exam Vital Signs: Vital Signs: Last Vital Signs Temp 98.3 F 04/23/20 11:14 Pulse 87 04/23/20 11:14 Resp 20 04/23/20 11:14 BP 142/72 H 04/23/20 11:14 Pulse Ox 92 04/23/20 11:14 Body Mass Index 32.3 General awake alert, and cooperative. Neck is supple no JVD. CVS regular rate rhythm, Respiratory lungs clear to auscultation, no respiratory distress, no wheeze, no rhonchi. Gastrointestinal abdomen soft, nontender, bowel sounds audible, no guarding , no rigidity. Extremities right great toe dry gangrene, no drainage, no redness and no swelling on dorsum of foot Neuro nonfocal, legally blind Skin no rash Objective Data Current Medications Generic Name Dose Route Start Last Admin Trade Name Steve PRN Reason Stop Dose Admin Acetaminophen 650 mg 04/14/20 23:06 04/22/20 20:45 Acetaminophen 325 Mg Tablet PO 650 mg Q6H PRN Administration Pain, Mild (Pain Scale 1-3) Amlodipine Besylate 10 mg 04/23/20 09:00 04/23/20 08:51 Amlodipine Besylate 5 Mg Tablet PO 10 mg DAILY RAUL Administration Protocol Ascorbic Acid 250 mg 04/23/20 09:00 04/23/20 08:46 Ascorbic Acid 250 Mg Tablet PO 250 mg BID RAUL Administration Aspirin 325 mg 04/22/20 09:00 04/23/20 08:45 Aspirin 325 Mg Tablet PO 325 mg DAILY RAUL Administration Atorvastatin Calcium 80 mg 04/22/20 21:00 04/22/20 20:41 Atorvastatin Calcium 80 Mg Tablet PO 80 mg BEDTIME RAUL Administration Atropine Sulfate 1 drop 04/15/20 09:00 04/23/20 10:28 Atropine Sulfate 1 % Ophth Jacki 2 Ml Bottle EYE-LEFT 1 drop TID [facility] Administration Calcium Carbonate/Cholecalciferol 500 mg 04/17/20 13:30 04/23/20 09:00 Calcium + Vitamin D 250 Mg Tablet PO 500 mg DAILY [facility] Administration Docusate Sodium 100 mg 04/15/20 09:00 04/23/20 08:46 Docusate Sodium 100 Mg Capsule PO 100 mg BID [facility] Administration Ferrous Sulfate 324 mg 04/23/20 08:00 04/23/20 08:46 Ferrous Sulfate 324 Mg Tablet. PO 324 mg BIDWM [facility] Administration Guaifenesin/Dextromethorphan 10 ml 04/22/20 09:30 04/23/20 10:30 Guaifenesin Dm 100/10/5 Ml 5 Ml Syrup PO 10 ml Q6H [facility] Administration Ceftriaxone Sodium 1 gm/ 50 mls @ 100 mls/hr 04/20/20 17:00 04/22/20 19:03 Sodium Chloride IV Infused Q24H [facility] Infusion Metronidazole 500 mg in 100 mls @ 100 mls/hr 04/21/20 16:00 04/23/20 10:00 Flagyl IV Infused Q8H [facility] Infusion Insulin Human Lispro 0 unit 04/15/20 07:30 04/23/20 12:13 Insulin Lispro 100 Unit/Ml 3 Ml Vial SUBCUT Not Given QIDACHS [facility] Protocol Lidocaine 2 patch 04/15/20 09:15 04/23/20 08:59 Lidocaine 4 % Patch Adh..Patch TRANSDERMA 2 patch DAILY [facility] Administration Protocol Metoprolol Tartrate 50 mg 04/23/20 21:00 Metoprolol Tartrate 25 Mg Tablet PO BID [facility] Protocol Omeprazole 20 mg 04/22/20 06:30 04/23/20 06:28 Omeprazole 20 Mg Capsule. PO Not Given DAILY@0630 [facility] Pharmacy Consult 1 each 04/14/20 23:02 Consult Rx Vancomycin Dosing MISCELLANE DAILY PRN Consult order Prednisolone Acetate 1 drop 04/15/20 09:00 04/23/20 10:28 Prednisolone Acetate 1 % Oph Susp 5 Ml Drpbtl EYE-LEFT 1 drop DAILY [facility] Administration Senna 17.2 mg 04/14/20 23:06 Sennosides 8.6 Mg Tablet PO BEDTIME PRN Constipation Sodium Chloride 3 ml 04/15/20 00:00 04/23/20 10:31 0.9 % Sodium Chloride Flush 3 Ml Syringe IVFLUSH 3 ml QSHIFT RAUL Administration Timolol Maleate 1 drop 04/15/20 09:00 04/23/20 10:29 Timolol Maleate Xe 0.25 % Gel 5 Ml Drbtl EYE-RIGHT 1 drop DAILY RAUL Administration Labs CBC & Chem 7: 04/23/20 06:01 04/23/20 06:01 Microbiology Microbiology Results: Microbiology 04/21/20 05:05 Blood - Venous Blood Culture - Preliminary No growth after 48 hours. 04/21/20 04:59 Blood - Venous Blood Culture - Preliminary No growth after 48 hours. 04/18/20 00:12 Blood - Venous Blood Culture - Final No growth after 5 days. 04/18/20 00:16 Blood - Venous Blood Culture - Final No growth after 5 days. 04/14/20 21:49 Blood - Venous Blood Culture - Final No growth after 5 days. 04/14/20 21:49 Blood - Venous Blood Culture - Final No growth after 5 days. 04/14/20 Unknown Urine clean catch - Clean Catch Midstream Urine Culture - Final Klebsiella pneumoniae Assessment and Plan (1) Diarrhea: Status: Acute (2) UTI due to Klebsiella species: Problem details: She is on antibiotics Some fever may be due to diabetic foot infection She seems to have no rash or reaction to antibiotics Status: Acute (3) Anemia: Status: Acute (4) Essential hypertension: Status: Acute (5) PAD (peripheral artery disease): Status: Acute (6) Osteomyelitis of great toe of right foot: Status: Acute (7) Acute kidney injury: Status: Acute Assessment and Plan: 75-year-old female with a past medical history of hypertension, hyperlipidemia, diabetes, legally blind, lives alone presented to the hospital with a chief complaint of right lower extremity pain. Diabetic right foot infection/peripheral arterial disease No recurrent fevers, WBC remains elevated with no change, on IV ceftriaxone and Flagyl for right toe infection being followed by Dr. Blood and need left to right femoral to femorral bypass but patient deemed high risk by Cardiology and seems has underlying multivessel coronary artery disease Will continue current IV antibiotics and will discuss further treatment options with Dr. Blood Lexiscan showed moderate size inferior wall ischemia EF 41% with stress and 58 with rest and echocardiogram Diarrhea Resolved, C diff negative was likely related to antibiotics. UTI urine culture grew Klebsiella pneumonia continue IV ceftriaxone day 4/7 Uncontrolled hypertension blood pressure improved since patient agreed to take blood pressure medication dose of Norvasc increased to 10 mg and metoprolol increased to 50 mg b.i.d. 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 History of chronic kidney disease with baseline creatinine around 2 most consistent with diabetic nephropathy, creatinine today stable at 2.8 will follow renal function closely case discussed with Dr. Carey will DC IV fluid Avoid nephrotoxins. Acute on chronic anemia, noted to have significant drop in hematocrit therefore received 2 units of packed RBC hematocrit improved, patient received 1 dose of IV Ferrlecit And now on iron supplement and vitamin-C B12 is low at 159/ folate is normal will place patient on B12 supplement. stool guaiac came back negative, iron studies consistent with mild iron deficiency, patient seen by Dr. Diego he recommended Pepcid with possibility of gastritis with chronic use of aspirin And recommend outpatient colonoscopy. Patient also evaluated by Dr. Monroy and she agrees with iron replacement. Hyperkalemia. Resolved with kayexalate Back pain. Chronic with no acute exacerbation continue lidocaine and oxycodone Diabetes Noted to have low blood sugars today therefore will discontinue glyburide, follow blood sugar closely and continue ADA diet and insulin sliding scale Legally Blind continue Home eye drops. DVT prophylaxis on mechanical device avoid anticoagulation due to low H&H
--- NOTE | 2020-04-23 15:17 | P.PNHO_ITS ---
Medical Summary - Medical Summary Date of Service: 04/23/20 Interval History Interval history: Her hematocrit has increased to 26.2. Her concern today was with new cholesterol medication. Review of Systems - Neurologic Reports hearing normal, Reports abnormal speech, Denies abnormal gait [facility] Medical History: Medical History (Last Updated 04/21/20 @ 15:49 by Rosina Stein MD) Blind Diabetes UTI due to Klebsiella species Family history: reviewed and not pertinent Social History: Social History (Last Reviewed 04/15/20 @ 13:37 by Rosina Stein MD) Living Situation History: Household Members: None Housing: Condominium Do you presently have visiting nurse or other home services: No Alcohol History: Alcohol intake: never Tobacco History: Smoking Status: Former smoker Substance Use History: Use of substances other than those prescribed or required for medical reasons : No Currently Displaying Signs/Symptoms of Drug Intoxication Withdrawal: No Domestic Abuse History: Have you been hit, kicked, punched, or otherwise hurt by someone within the past year? If so, by whom?: No Do you feel safe in your current relationship?: No Current Relationship Is there a partner from a previous relationship who is making you feel unsafe now?: No Are you made to feel afraid or neglected: No Advance Directives: Advance Directives: No Advance Directives Information Provided: Advance Directives Information Provided comment: declined Homicidal Assessment: Do you have thoughts of harming others: None Do you have a plan to hurt others: No Plan Nutrition Assessment: Recently lost weight without trying: Yes How much weight loss: Unsure Eating poorly because of decreased appetite: No Nutrition screen score: 4 Occupation Assessmet: service: No Current occupational status: disabled Smoking status: Former smoker Home Medications and Allergies Current Medications: Current Medications Generic Name Dose Route Start Last Admin Trade Name Freq PRN Reason Stop Dose Admin Acetaminophen 650 mg 04/14/20 23:06 04/22/20 20:45 Acetaminophen 325 Mg Tablet PO 650 mg Q6H PRN Administration Pain, Mild (Pain Scale 1-3) Amlodipine Besylate 10 mg 04/23/20 09:00 04/23/20 08:51 Amlodipine Besylate 5 Mg Tablet PO 10 mg DAILY RAUL Administration Protocol Ascorbic Acid 250 mg 04/23/20 09:00 04/23/20 08:46 Ascorbic Acid 250 Mg Tablet PO 250 mg BID RAUL Administration Aspirin 325 mg 04/22/20 09:00 04/23/20 08:45 Aspirin 325 Mg Tablet PO 325 mg DAILY RAUL Administration Atorvastatin Calcium 80 mg 04/22/20 21:00 04/22/20 20:41 Atorvastatin Calcium 80 Mg Tablet PO 80 mg BEDTIME RAUL Administration Atropine Sulfate 1 drop 04/15/20 09:00 04/23/20 10:28 Atropine Sulfate 1 % Ophth Jacki 2 Ml Bottle EYE-LEFT 1 drop TID RAUL Administration Calcium Carbonate/Cholecalciferol 500 mg 04/17/20 13:30 04/23/20 09:00 Calcium + Vitamin D 250 Mg Tablet PO 500 mg DAILY RAUL Administration Cyanocobalamin 1,000 mcg 04/23/20 14:15 Cyanocobalamin (Vitamin B-12) 1,000 Mcg/Ml Vial IM 05/14/20 09:01 Q7D@0900 RAUL Docusate Sodium 100 mg 04/15/20 09:00 04/23/20 08:46 Docusate Sodium 100 Mg Capsule PO 100 mg BID COUNT INCLUDES THE [facility] Administration Ferrous Sulfate 324 mg 04/23/20 08:00 04/23/20 08:46 Ferrous Sulfate 324 Mg Tablet. PO 324 mg BIDWM RAUL Administration Guaifenesin/Dextromethorphan 10 ml 04/22/20 09:30 04/23/20 10:30 Guaifenesin Dm 100/10/5 Ml 5 Ml Syrup PO 10 ml Q6H RAUL Administration Ceftriaxone Sodium 1 gm/ 50 mls @ 100 mls/hr 04/20/20 17:00 04/22/20 19:03 Sodium Chloride IV Infused Q24H RAUL Infusion Metronidazole 500 mg in 100 mls @ 100 mls/hr 04/21/20 16:00 04/23/20 10:00 Flagyl IV Infused Q8H COUNT INCLUDES THE [facility] Infusion Insulin Human Lispro 0 unit 04/15/20 07:30 04/23/20 12:13 Insulin Lispro 100 Unit/Ml 3 Ml Vial SUBCUT Not Given QIDACHS COUNT INCLUDES THE [facility] Protocol Lidocaine 2 patch 04/15/20 09:15 04/23/20 08:59 Lidocaine 4 % Patch Adh..Patch TRANSDERMA 2 patch DAILY COUNT INCLUDES THE [facility] Administration Protocol Metoprolol Tartrate 50 mg 04/23/20 21:00 Metoprolol Tartrate 25 Mg Tablet PO BID COUNT INCLUDES THE [facility] Protocol Omeprazole 20 mg 04/22/20 06:30 04/23/20 06:28 Omeprazole 20 Mg Capsule.Dr PO Not Given DAILY@0630 COUNT INCLUDES THE [facility] Pharmacy Consult 1 each 04/14/20 23:02 Consult Rx Vancomycin Dosing MISCELLANE DAILY PRN Consult order Prednisolone Acetate 1 drop 04/15/20 09:00 04/23/20 10:28 Prednisolone Acetate 1 % Oph Susp 5 Ml Drpbtl EYE-LEFT 1 drop DAILY RAUL Administration Senna 17.2 mg 04/14/20 23:06 Sennosides 8.6 Mg Tablet PO BEDTIME PRN Constipation Sodium Chloride 3 ml 04/15/20 00:00 04/23/20 10:31 0.9 % Sodium Chloride Flush 3 Ml Syringe IVFLUSH 3 ml QSHIFT COUNT INCLUDES THE [facility] Administration Timolol Maleate 1 drop 04/15/20 09:00 04/23/20 10:29 Timolol Maleate Xe 0.25 % Gel 5 Ml Drbtl EYE-RIGHT 1 drop DAILY RAUL Administration Home Medications Medication Instructions Recorded Confirmed Type aspirin 81 mg PO DAILY 04/15/20 04/15/20 History atropine 1 drp BID 04/15/20 04/15/20 History glyburide 1 tab PO BID 04/15/20 04/15/20 History prednisolone acetate 1 drp DAILY 04/15/20 04/15/20 History timolol maleate 1 drp OPHTHALMIC-RIGHT DAILY 04/15/20 04/15/20 History Allergies Allergy/AdvReac Type Severity Reaction Status Date / Time No Known Allergies Allergy Verified 04/14/20 20:37 [No Known Allergies*] Exam Vital signs: Vital Signs Temp 98.3 F 04/23/20 11:14 Pulse 87 04/23/20 11:14 Resp 20 04/23/20 11:14 BP 142/72 H 04/23/20 11:14 Pulse Ox 92 04/23/20 11:14 Intake & Output 04/22/20 04/23/20 04/23/20 17:59 06:59 18:59 Intake Total 661.25 / 661.25 Output Total 200 / 200 Balance 461.25 / 461.25 Urine Output (Average ml/kg/hr) 0.18 Intake: Intake, Oral Amount 360 / 360 Intake, IV Amount 301.25 / 301.25 cefTRIAXone sodium 1 gm In 0.9 % Sodium Chloride 50 ml @ 100 mls/hr IV Q24H COUNT INCLUDES THE [facility] Rx#: [id number] metroNIDAZOLE/NS 500 mg In 100 100 / 100 ml @ 100 mls/hr IV Q8H COUNT INCLUDES THE [facility] Rx#: [id number] 0.9 % Sodium Chloride 1,000 ml 201.25 / 201.25 @ 75 mls/hr IVCONT .[id number] COUNT INCLUDES THE [facility] Rx#:[id number] Output: Output, Urine Amount 200 / 200 Other: Breakfast % Eaten 50% Lunch % Eaten 50% Number of Bowel Movements 1 Urine Bedside Commode Urine Color Last Bowel Movement Stool Bedside Commode Stool Consistency Loose Weight 90.718 kg Body Mass Index 32.3 - Constitutional Present: no acute distress - Routine HEENT Exam Head: Present: atraumatic - Routine Neck Exam Present: full ROM (clear) - Routine Cardiovascular Exam Cardiovascular: Present: RRR - Routine Abdominal Exam Present: soft - Routine Rectal Exam Patient deferred: visual exam - Routine Extremities Exam Present: nontender Data - Labs CBC & Chem 7: 04/23/20 06:01 04/23/20 06:01 Labs: 04/14/20 Urine Culture Routine 04/14/20 21:05 XR foot RT 2V Stat 0.9 % Sodium Chloride [Ns] 1,000 ml IV 999 mls/hr Acetaminophen [Tylenol] 975 mg PO ONCE STA 04/14/20 21:19 ceFAZolin Sodium/Dextrose,Iso [Ancef] 2 gm in 50 ml IV ONCE 04/14/20 21:49 Complete Blood Count Auto Diff Stat Comprehensive Met. Panel Stat Erythrocyte Sedimentation Rate Stat Lactic Acid Stat Lipase Stat Partial Thromboplastin Time Stat Prothrombin Time INR Stat Blood Culture X2 [BC] Stat 04/14/20 21:50 COVID-19 ID NOW (Martinez) Stat 04/14/20 22:44 ECG 12 lead EKG Stat EKG Documentation DIRECTED 04/14/20 22:53 0.9 % Sodium Chloride [Ns] 1,000 ml IV 999 mls/hr 04/14/20 22:58 Consult Rx Perform Med Rec 1 each MISCELLANE ONCE PRN 04/14/20 23:03 UA CC w/rflx Micro + Cult Stat 04/14/20 23:08 Transfer Order Routine 04/14/20 23:15 Heparin Sodium,Porcine 5,000 unit SUBCUT BID Sodium Chloride 0.45 % 1,000 ml IVCONT 100 mls/hr 04/14/20 23:29 Potassium Stat 04/14/20 23:45 vancomycin HCL 1,000 mg 0.9 % Sodium Chloride [Ns] 250 ml IV ONCE 04/15/20 00:00 CT abdomen pelvis wo con Stat CT foot RT wo con Routine CT lower leg RT wo con Routine Piperacillin Sodium/Tazobactam [Zosyn] 2.25 gm 0.9 % Sodium Chloride [Ns] 50 ml IV Q8H 04/15/20 02:12 Piperacillin Sodium/Tazobactam [Zosyn] 2.25 gm IV .STK-MED ONE 04/15/20 02:26 vancomycin HCL 1,000 mg .ROUTE .STK-MED ONE 04/15/20 02:39 oxyCODONE HCl Immed Release [Roxicodone] 2.5 mg PO Q6H PRN 04/15/20 02:43 Consult to Urology Routine 04/15/20 06:03 Basic Metabolic Panel DAILY Complete Blood Count Auto Diff DAILY@0600 Magnesium Routine 04/15/20 07:26 Glucose, Whole Blood Routine 04/15/20 08:00 glyBURIDE [Diabeta] 5 mg PO BIDWM 04/15/20 08:54 Piperacillin Sodium/Tazobactam [Zosyn] 2.25 gm IV .STK-MED ONE 04/15/20 09:00 Aspirin 81 mg PO DAILY Atropine Sulfate 1 % Ophth Jacki 1 drop EYE-LEFT BID 04/15/20 09:12 Diabetic Diet 04/15/20 09:26 Sodium Polystyrene Sulfon/Sorb [Kayexalate] 15 gm PO ONCE ONE 04/15/20 12:17 Glucose, Whole Blood Routine 04/15/20 16:48 Glucose, Whole Blood Routine 04/15/20 16:52 Piperacillin Sodium/Tazobactam [Zosyn] 2.25 gm IV .STK-MED ONE 04/15/20 20:46 Glucose, Whole Blood Routine 04/16/20 00:23 Piperacillin Sodium/Tazobactam [Zosyn] 2.25 gm IV .STK-MED ONE 04/16/20 06:00 vancomycin HCL 750 mg vancomycin HCL 500 mg 0.9 % Sodium Chloride [Ns] 250 ml IV Q48H 04/16/20 07:41 Piperacillin Sodium/Tazobactam [Zosyn] 2.25 gm IV .STK-MED ONE 04/16/20 07:45 Glucose, Whole Blood Routine 04/16/20 07:55 Basic Metabolic Panel Stat Complete Blood Count Auto Diff Stat 04/16/20 11:32 Glucose, Whole Blood Routine 04/16/20 15:32 Piperacillin Sodium/Tazobactam [Zosyn] 2.25 gm IV .STK-MED ONE 04/16/20 16:02 Glucose, Whole Blood Routine 04/16/20 19:54 Glucose, Whole Blood Routine 04/16/20 23:43 Piperacillin Sodium/Tazobactam [Zosyn] 2.25 gm IV .STK-MED ONE 04/17/20 07:26 Glucose, Whole Blood Routine 04/17/20 07:51 Piperacillin Sodium/Tazobactam [Zosyn] 2.25 gm IV .STK-MED ONE 04/17/20 11:31 Glucose, Whole Blood Routine 04/17/20 11:49 Immunofixation Pnl, Serum Routine [place]/Lambda Light Chain Serum Routine PTHI Routine 04/17/20 11:50 IRON PROFILE Routine 04/17/20 12:03 US arterial duplex LE BI Routine 04/17/20 15:58 Piperacillin Sodium/Tazobactam [Zosyn] 2.25 gm IV .STK-MED ONE 04/17/20 16:34 Glucose, Whole Blood Routine 04/17/20 19:51 Glucose, Whole Blood Routine 04/17/20 23:18 Piperacillin Sodium/Tazobactam [Zosyn] 2.25 gm IV .STK-MED ONE 04/17/20 23:59 Complete Blood Count Auto Diff Stat Lactic Acid Stat 04/18/20 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 Routine 04/18/20 07:01 Glucose, Whole Blood Routine 04/18/20 08:22 Piperacillin Sodium/Tazobactam [Zosyn] 2.25 gm IV .STK-MED ONE 04/18/20 08:35 Basic Metabolic Panel Routine Ferritin Routine IRON PROFILE Routine 04/18/20 09:18 Vital Signs PROTOCOL 04/18/20 11:36 Glucose, Whole Blood Routine 04/18/20 15:38 Piperacillin Sodium/Tazobactam [Zosyn] 2.25 gm IV .STK-MED ONE 04/18/20 16:04 Glucose, Whole Blood Routine 04/18/20 18:06 [id number] Routine 04/18/20 19:21 Glucose, Whole Blood Routine 04/18/20 19:26 Add Laboratory Test Routine 04/18/20 23:06 Piperacillin Sodium/Tazobactam [Zosyn] 2.25 gm IV .STK-MED ONE 04/19/20 IR us guide venous access Routine 04/19/20 00:01 NPO Diet 04/19/20 05:15 Basic Metabolic Panel DAILY@0600 04/19/20 07:20 Glucose, Whole Blood Routine 04/19/20 07:58 Dextrose 50 % [D50] 25 gm .ROUTE .STK-MED ONE 04/19/20 08:08 Dextrose 50 % [D50] 25 gm IVPUSH ONCE ONE 04/19/20 08:21 Piperacillin Sodium/Tazobactam [Zosyn] 2.25 gm IV .STK-MED ONE 04/19/20 08:31 Glucose, Whole Blood Routine 04/19/20 10:07 Lidocaine HCl 1 % MPF [Xylocaine 1 % MPF] 5 ml .ROUTE .STK-MED ONE iohexoL 300 MG/ML [Omnipaque 300 MG/ML] 100 ml .ROUTE .STK-MED ONE iohexoL 300 MG/ML [Omnipaque 300 MG/ML] 50 ml .ROUTE .STK-MED ONE 04/19/20 10:08 Heparin Sodium (Porcine)/NS/PF 2,000 unit in 1,000 ml IV As directed 04/19/20 10:12 Heparin Sodium,Porcine 10,000 unit IVPUSH .STK-MED ONE Midazolam HCl/PF [Versed] 2 mg .ROUTE .STK-MED ONE Naloxone HCl [Narcan] 0.4 mg .ROUTE .STK-MED ONE fentaNYL citrate/PF [Sublimaze] 50 mcg .ROUTE .STK-MED ONE flumazeniL [Romazicon] 0.05 mg .ROUTE .STK-MED ONE 04/19/20 11:53 Lidocaine HCl 1 % MPF [Xylocaine 1 % MPF] 10 ml SUBCUT ONCE ONE 04/19/20 11:54 iohexoL 300 MG/ML [Omnipaque 300 MG/ML] 50 ml IV ONCE ONE 04/19/20 11:55 iohexoL 300 MG/ML [Omnipaque 300 MG/ML] 100 ml IV ONCE ONE 04/19/20 12:00 Diabetic Diet 04/19/20 12:05 0.9 % Sodium Chloride [Ns] 1,000 ml IVCONT 100 mls/hr 04/19/20 12:08 Clopidogrel Bisulfate [Plavix] 300 mg PO ONCE ONE 04/19/20 12:09 Aspirin 325 mg PO ONCE ONE 04/19/20 12:41 Acetaminophen [Tylenol] 975 mg PO NOW STA 04/19/20 12:50 Acetaminophen [Tylenol] 325 mg .ROUTE .STK-MED ONE Aspirin 325 mg .ROUTE .STK-MED ONE Clopidogrel Bisulfate [Plavix] 300 mg .ROUTE .STK-MED ONE 04/19/20 14:45 Piperacillin Sodium/Tazobactam [Zosyn] 2.25 gm IV .STK-MED ONE 04/19/20 16:08 Glucose, Whole Blood Routine 04/19/20 20:10 Glucose, Whole Blood Routine 04/19/20 21:00 Famotidine [Pepcid] 20 mg PO BID 04/19/20 22:57 Piperacillin Sodium/Tazobactam [Zosyn] 2.25 gm IV .STK-MED ONE 04/20/20 CA lexiscan stress w vivienne Routine 04/20/20 05:33 Basic Metabolic Panel DAILY@0600 04/20/20 07:21 Glucose, Whole Blood Routine 04/20/20 08:33 Piperacillin Sodium/Tazobactam [Zosyn] 2.25 gm IV .STK-MED ONE 04/20/20 09:00 Aspirin 81 mg PO DAILY Clopidogrel Bisulfate [Plavix] 75 mg PO DAILY 04/20/20 11:10 NPO Diet 04/20/20 11:19 Glucose, Whole Blood Routine 04/20/20 11:33 NM vivienne perf SPECT rest & str Routine 04/20/20 11:45 hydroCHLOROthiazide [Microzide] 12.5 mg PO DAILY 04/20/20 15:38 Piperacillin Sodium/Tazobactam [Zosyn] 2.25 gm IV .STK-MED ONE 04/20/20 16:24 Glucose, Whole Blood Routine 04/20/20 17:27 cefTRIAXone sodium [Rocephin] 1 gm .ROUTE .STK-MED ONE 04/20/20 19:55 Glucose, Whole Blood Routine 04/20/20 23:41 Piperacillin Sodium/Tazobactam [Zosyn] 2.25 gm IV .STK-MED ONE 04/21/20 04:59 Basic Metabolic Panel DAILY@0600 Complete Blood Count Auto Diff Stat Lactic Acid Stat 04/21/20 07:23 Glucose, Whole Blood Routine 04/21/20 07:28 Piperacillin Sodium/Tazobactam [Zosyn] 2.25 gm IV .STK-MED ONE 04/21/20 09:00 CA echo transthoracic complete Routine 04/21/20 09:10 Aminophylline 500 mg IV .STK-MED ONE Regadenoson [Lexiscan] 0.4 mg .ROUTE .STK-MED ONE 04/21/20 11:05 CDiff with Reflex to PCR Routine 04/21/20 11:26 Loperamide HCl [Imodium] 2 mg PO ONCE ONE 04/21/20 11:37 Glucose, Whole Blood Routine 04/21/20 11:38 Sodium Ferric Gluconat/Sucrose [Ferrlecit] 125 mg 0.9 % Sodium Chloride [Ns] 100 ml IV ONCE 04/21/20 11:48 Add Laboratory Test Routine 04/21/20 12:33 Red Blood Cells Urgent Type and Screen Urgent Lactate Dehydrogenase Urgent Reticulocyte Count Urgent 04/21/20 16:21 Glucose, Whole Blood Routine 04/21/20 18:11 cefTRIAXone sodium [Rocephin] 1 gm .ROUTE .STK-MED ONE 04/21/20 18:14 Epoetin Tacho [Procrit] 20,000 unit SUBCUT ONCE ONE 04/21/20 20:07 Glucose, Whole Blood Routine 04/22/20 01:52 hydrALAZINE HCl [Apresoline] 5 mg IVPUSH ONCE ONE 04/22/20 06:07 Basic Metabolic Panel DAILY@0600 Complete Blood Count Auto Diff Routine Lipid Panel Routine 04/22/20 07:10 Glucose, Whole Blood Routine 04/22/20 09:00 Famotidine [Pepcid] 20 mg PO DAILY 04/22/20 10:12 Add Laboratory Test Routine 04/22/20 11:26 Glucose, Whole Blood Routine Laboratory Last Values WBC 13.2 X10*3/uL (4.8-10.8) H 04/22/20 06:07 RBC 2.86 X10*6/uL (4.20-5.50) L 04/22/20 06:07 Hgb 8.0 g/dl (12.0-16.0) L 04/22/20 06:07 Hct 25.9 % (37-47) L 04/22/20 06:07 MCV 90.6 fL (80-98) 04/22/20 06:07 MCH 28.0 pg (27.0-33.0) 04/22/20 06:07 MCHC 30.9 g/dl (31.0-35.0) L 04/22/20 06:07 RDW 13.1 % (11.0-16.0) 04/22/20 06:07 Plt Count 236 X10*3/uL (160-400) 04/22/20 06:07 MPV 10.1 fL (9.4-12.3) 04/22/20 06:07 Immature Gran % (Auto) 0.6 % (0.0-0.4) H 04/22/20 06:07 Neut % (Auto) 72.8 % (45-73) 04/22/20 06:07 Lymph % (Auto) 14.1 % (20-40) L 04/22/20 06:07 Cloud % (Auto) 9.7 % (2-11) 04/22/20 06:07 Eos % (Auto) 2.3 % (0-4) 04/22/20 06:07 Baso % (Auto) 0.5 % (0-2) 04/22/20 06:07 Lymph # (Auto) 1.9 X10*3/uL (1.2-4.9) 04/22/20 06:07 Cloud # (Auto) 1.3 X10*3/uL (0.1-1.2) H 04/22/20 06:07 Eos # (Auto) 0.3 X10*3/uL (0.0-0.4) 04/22/20 06:07 Baso # (Auto) 0.1 X10*3/uL (0.0-0.2) 04/22/20 06:07 Abs Immat Gran (auto) 0.08 X10*3/uL (0.00-0.03) H 04/22/20 06:07 Absolute Neuts (auto) 9.6 X10*3/uL (2.0-8.3) H 04/22/20 06:07 Absolute Nucleated RBC 0.000 X10*3/uL (0.0-0.012) 04/22/20 06:07 Nucleated RBC % (auto) 0.0 /100WBC (0.0-0.2) 04/22/20 06:07 ESR 114 MM/HR (0-20) H 04/14/20 21:49 Absolute Retic 0.032 X10*6/uL (0.026-0.095) 04/21/20 12:33 Percent Retic 1.2 % (0.5-1.8) 04/21/20 12:33 Immature Retic Fraction 12.5 % (3.0-15.9) 04/21/20 12:33 Retic Hgb Equivalent 27.9 pg (30.0-35.0) L 04/21/20 12:33 PT 12.8 SEC (10.8-13.0) 04/14/20 21:49 INR 1.1 (0.9-1.1) 04/14/20 21:49 APTT 36.8 SEC (24.1-38.0) 04/14/20 21:49 Sodium 141 mmol/L (135-145) 04/22/20 06:07 Potassium 4.0 mmol/L (3.3-5.1) 04/22/20 06:07 Chloride 114 mmol/L (96-108) H 04/22/20 06:07 Carbon Dioxide 19 mmol/L (22-29) L 04/22/20 06:07 Anion Gap 12 (12-20) 04/22/20 06:07 BUN 31 mg/dL (9-16) H 04/22/20 06:07 Creatinine 3.07 mg/dL (0.5-1.4) H 04/22/20 06:07 Estim Creat Clear Calc 17.7 04/22/20 06:07 Estimated GFR 15 04/22/20 06:07 POC Glucose 75 mg/dL (60-115) 04/22/20 11:26 Random Glucose 110 mg/dL (60-115) 04/22/20 06:07 Lactic Acid 0.6 mmol/L (0.5-2.0) 04/21/20 04:59 Calcium 7.5 mg/dL (8.4-10.2) L 04/22/20 06:07 Magnesium 2.0 mg/dL (1.6-2.6) 04/15/20 06:03 Magnesium Cancelled 04/15/20 06:03 Iron 21 mcg/dL (30-160) L 04/18/20 08:35 TIBC 187 mcg/dL (228-428) L 04/18/20 08:35 % Saturation 11 % (15-50) L 04/18/20 08:35 Unsat Iron Binding 166 ug/dL 04/18/20 08:35 Ferritin 218 ng/mL (10-250) 04/18/20 08:35 Total Bilirubin 0.3 mg/dL (0.0-1.0) 04/14/20 21:49 AST 18 U/L (5-31) 04/14/20 21:49 ALT < 6 U/L (0-31) 04/14/20 21:49 Alkaline Phosphatase 78 U/L (39-117) 04/14/20 21:49 Lactate Dehydrogenase 250 U/L (122-220) H 04/21/20 12:33 Total Protein 7.3 g/dL (6.5-8.0) 04/14/20 21:49 Albumin 3.5 g/dL (3.5-5.0) 04/14/20 21:49 Triglycerides 144 mg/dL 04/22/20 06:07 Cholesterol 219 mg/dL 04/22/20 06:07 LDL Cholesterol, Calc 160 mg/dl 04/22/20 06:07 HDL Cholesterol 31 mg/dL 04/22/20 06:07 Lipase 66 U/L (8-78) 04/14/20 21:49 PTH Intact 75 pg/mL (14-64) H 04/17/20 11:49 Calcium (PTH Intact) 8.1 mg/dL (8.6-10.4) L 04/17/20 11:49 Urine Color YELLOW 04/14/20 23:03 Urine Appearance CLOUDY 04/14/20 23:03 Urine pH 6.0 (5.0-8.0) 04/14/20 23:03 Ur Specific [place] 1.020 (1.005-1.025) 04/14/20 23:03 Urine Protein 2+ MG/DL (NEG-TRACE) H 04/14/20 23:03 Urine Glucose (UA) 100 MG/DL (NEG) H 04/14/20 23:03 Urine Ketones NEG MG/DL (NEG) 04/14/20 23:03 Urine Blood 2+ (NEG) H 04/14/20 23:03 Urine Nitrite POS (NEG) H 04/14/20 23:03 Ur Leukocyte Esterase 2+ (NEG) H 04/14/20 23:03 Urine RBC 1-4 /HPF (0) 04/14/20 23:03 Urine WBC TNTC /HPF (0-4) H 04/14/20 23:03 Ur Squamous Epith Cells 1+ /LPF 04/14/20 23:03 Urine Bacteria 2+ /LPF 04/14/20 23:03 Urine Mucus TRACE /LPF 04/14/20 23:03 Stool Occult Blood NEG (NEG) 04/18/20 18:06 IgG Total 1357 mg/dL (600-1540) 04/17/20 11:49 IgA Total 213 mg/dL (70-320) 04/17/20 11:49 IgM 37 mg/dL (50-300) L 04/17/20 11:49 [place]/Lambda Ratio 2.37 (1.29-2.55) 04/17/20 11:49 ALBERTA Interpretation SEE NOTE 04/17/20 11:49 [place] Light Chain Anal 368 mg/dL (176-443) 04/17/20 11:49 Lambda Light Chain Anal 155 mg/dL (91-240) 04/17/20 11:49 C. difficile Toxin A&B Negative (Negative) 04/21/20 11:05 C. difficile Antigen Negative (Negative) 04/21/20 11:05 C. difficile Interpret SEE NOTE 04/21/20 11:05 COVID-19 (CHANTELLE) Negative (Negative) 04/14/20 21:50 COVID-19 Clin Com See Note 04/14/20 21:50 Blood Type O Positive 04/21/20 12:33 Antibody Screen NEGATIVE 04/21/20 12:33 Crossmatch See Detail 04/21/20 12:33 - Imaging Radiologist's impression: ITS Impressions Foot X-Ray 04/14/20 21:05 IMPRESSION: Findings highly concerning for osteomyelitis involving the tip of the terminal phalanx of the right great toe. Abdomen/Pelvis CT 04/15/20 00:00 IMPRESSION: 1. Extensive facet arthropathy of the lower lumbar spine. 2. Thick-walled appearance of the urinary bladder may be due to underdistention. Small focus of gas is present which could be due to recent catheterization versus infection in the proper clinical setting. Lower Extremity CT 04/15/20 00:00 IMPRESSION: Diffuse superficial edema involving posterior right lower leg extending into the anterior and posterior compartments of right foot and into the right great toe. There is a focal gas collection seen along the dorsal tip of the right great toe, but no drainable abscess seen. There is no bony erosive changes, periosteal thickening or fracture seen in the right lower extremity or the right foot. The joint spaces are maintained throughout. There is atherosclerotic calcification of anterior and posterior tibial arteries with posterior tibial artery continuing into the right foot. Foot CT 04/15/20 00:45 IMPRESSION: Diffuse superficial edema involving posterior right lower leg extending into the anterior and posterior compartments of right foot and into the right great toe. There is a focal gas collection seen along the dorsal tip of the right great toe, but no drainable abscess seen. There is no bony erosive changes, periosteal thickening or fracture seen in the right lower extremity or the right foot. The joint spaces are maintained throughout. There is atherosclerotic calcification of anterior and posterior tibial arteries with posterior tibial artery continuing into the right foot. Duplex Scan Lower Extremity Artery 04/17/20 12:03 IMPRESSION: Marked bilateral peripheral vascular disease bilateral SFA occlusions and monophasic flow in the common femoral arteries suggestive of severe inflow disease. Recent noncontrast CT scan demonstrated considerable atherosclerotic plaque in the aorta and iliac vessels but without IV contrast, the luminal inflow cannot be assessed. CT angiography would be helpful for further evaluation. If the patient's creatinine precludes this, MR angiography may be of value, possibly even with iron contrast agents. Myocardial Perfusion Scan Nuc Med 04/20/20 11:33 Impression: 1. Myocardial perfusion imaging study shows moderate size inferior wall ischemia, however this may be underestimated given the TID and change in ejection fraction at rest 2. Gated LVEF is 41% with stress and 58% with rest 3. Transient ischemic dilatation present EKG is nondiagnostic for ischemia Chest X-Ray 04/22/20 12:30 IMPRESSION: Low lung volumes with subtle hazy opacity in the right lower lobe that may reflect atelectasis or developing infiltrate. Progress Note: A/P (1) Anemia Start date: 04/22/20 (The evaluation is still in progress. Recommend transfusion of red cells if she becomes asymptomatic. I will cover this weekend.) Status: Acute - Time Spent With Patient Total time spent is greater than 50% in coordination of care (as documented) at patient's floor/unit and/or counseling patient: 15 - 24 minutes
[2020-04-23 15:40] VITALS: BP 151/71; PULSE 86; RESP 18; TEMP 37.4; O2SAT 94
[2020-04-23 16:34] LABS: Glucose, Whole Blood 71 mg/dL (60-115)
[2020-04-23] MEDS: Cyanocobalamin (Vitamin B-12) 1,000 MCG/ML VIAL 1000 MCG IM (16:45)
[2020-04-23] MEDS: cefTRIAXone sodium 1 GM in 0.9 % Sodium Chloride 50 ML IV (17:27)
--- NOTE | 2020-04-23 17:54 | P.CNPS_ITS ---
History of Present Illness Date of Service: 04/23/2020 Chief Complaint: Preoperative cardiovascular risk assessment Reason for Consult: competency evaluation Requesting physician: Michaelle Knapp Discussed with referring provider: Yes Sources of Information: patient interviewed and chart reviewed HPI Narrative: I was asked to evaluate competency for this patient with multiple medical issues as noted by the primary team. For Patient is pre-surgical for a femoral bypass. Has also been refusing some medications. Question of competency was raised. I initially tried to see the patient on 04/22/2020 but was unable as she was not arousable and gave random responses. I returned today to evaluate patient and she seemed to be pleasant cooperative oriented in all fo urs. She was aware she was at [facility] and the purpose of the hospitalization. she is aware that she is pre-surgical. She knew the purpose of surgery and wished to undergo surgery to improve circulation in her legs and to aid in healing her ulcer. She requested clarification on the risk of surgery and complications. I have discussed this with and she will defer to Dr. Blood. from a psychiatric standpoint patient reports having multiple losses recently which has got her worried and stressed. However she expresses motivation to live and continue seeking care despite multiple medical issues as noted in the medical record. Past Psychiatric History: None that patient reported Medical Evaluation Reviewed: Yes Review of Systems Review of Systems per primary service No all other systems are reviewed and are negative, unobtainable due to endotracheal tube, Unobtainable due to mental condition, Unobtainable due to mental status or Other [facility] Medical History Blind Diabetes UTI due to Klebsiella species Family History: deferred Social History: lives by herself Substance History: none Diagnostics Vital Signs (24Hr): Vital Signs - 24 hr 04/22/20 19:19 04/22/20 20:41 04/22/20 23:33 Temperature 99.2 F 97.9 F Pulse Rate 94 92 77 Respiratory Rate 20 20 Blood Pressure 169/67 H 169/67 H 151/62 H Pulse Oximetry 96 98 04/23/20 03:35 04/23/20 07:19 04/23/20 11:14 Temperature 99.1 F 98.9 F 98.3 F Pulse Rate 91 92 87 Respiratory Rate 18 18 20 Blood Pressure 174/69 H 152/68 H 142/72 H Pulse Oximetry 96 95 92 04/23/20 15:40 Temperature 99.3 F Pulse Rate 86 Respiratory Rate 18 Blood Pressure 151/71 H Pulse Oximetry 94 Body Mass Index 32.3 Labs Results: 04/23/20 06:01 04/23/20 06:01 Labs: Laboratory Results - last 48 hr 04/21/20 04/21/20 04/21/20 04:59 12:33 20:07 WBC RBC Hgb Hct MCV MCH MCHC RDW Plt Count MPV Immature Gran % (Auto) Neut % (Auto) Lymph % (Auto) [place] % (Auto) Eos % (Auto) Baso % (Auto) Lymph # (Auto) [place] # (Auto) Eos # (Auto) Baso # (Auto) Abs Immat Gran (auto) Absolute Neuts (auto) Absolute Nucleated RBC Nucleated RBC % (auto) Sodium Potassium Chloride Carbon Dioxide Anion Gap BUN Creatinine Estim Creat Clear Calc Estimated GFR POC Glucose 199 H Random Glucose Calcium Triglycerides Cholesterol LDL Cholesterol, Calc HDL Cholesterol Vitamin B12 159 L Folate 9.8 Blood Type O Positive Antibody Screen NEGATIVE Crossmatch See Detail 04/22/20 04/22/20 04/22/20 06:07 06:07 07:10 WBC 13.2 H RBC 2.86 L Hgb 8.0 L Hct 25.9 L MCV 90.6 MCH 28.0 MCHC 30.9 L RDW 13.1 Plt Count 236 MPV 10.1 Immature Gran % (Auto) 0.6 H Neut % (Auto) 72.8 Lymph % (Auto) 14.1 L [place] % (Auto) 9.7 Eos % (Auto) 2.3 Baso % (Auto) 0.5 Lymph # (Auto) 1.9 [place] # (Auto) 1.3 H Eos # (Auto) 0.3 Baso # (Auto) 0.1 Abs Immat Gran (auto) 0.08 H Absolute Neuts (auto) 9.6 H Absolute Nucleated RBC 0.000 Nucleated RBC % (auto) 0.0 Sodium 141 Potassium 4.0 Chloride 114 H Carbon Dioxide 19 L Anion Gap 12 BUN 31 H Creatinine 3.07 H Estim Creat Clear Calc 17.7 Estimated GFR 15 POC Glucose 91 Random Glucose 110 Calcium 7.5 L Triglycerides 144 Cholesterol 219 LDL Cholesterol, Calc 160 HDL Cholesterol 31 Vitamin B12 Folate Blood Type Antibody Screen Crossmatch 04/22/20 04/22/20 04/22/20 11:26 15:59 19:41 WBC RBC Hgb Hct MCV MCH MCHC RDW Plt Count MPV Immature Gran % (Auto) Neut % (Auto) Lymph % (Auto) [place] % (Auto) Eos % (Auto) Baso % (Auto) Lymph # (Auto) [place] # (Auto) Eos # (Auto) Baso # (Auto) Abs Immat Gran (auto) Absolute Neuts (auto) Absolute Nucleated RBC Nucleated RBC % (auto) Sodium Potassium Chloride Carbon Dioxide Anion Gap BUN Creatinine Estim Creat Clear Calc Estimated GFR POC Glucose 75 81 85 Random Glucose Calcium Triglycerides Cholesterol LDL Cholesterol, Calc HDL Cholesterol Vitamin B12 Folate Blood Type Antibody Screen Crossmatch 04/23/20 04/23/20 04/23/20 06:01 06:01 07:24 WBC 13.0 H RBC 2.88 L Hgb 8.1 L Hct 26.2 L MCV 91.0 MCH 28.1 MCHC 30.9 L RDW 13.2 Plt Count 251 MPV 10.4 Immature Gran % (Auto) 0.5 H Neut % (Auto) 72.2 Lymph % (Auto) 15.3 L [place] % (Auto) 9.2 Eos % (Auto) 2.3 Baso % (Auto) 0.5 Lymph # (Auto) 2.0 [place] # (Auto) 1.2 Eos # (Auto) 0.3 Baso # (Auto) 0.1 Abs Immat Gran (auto) 0.07 H Absolute Neuts (auto) 9.4 H Absolute Nucleated RBC 0.000 Nucleated RBC % (auto) 0.0 Sodium 140 Potassium 3.9 Chloride 113 H Carbon Dioxide 18 L Anion Gap 13 BUN 31 H Creatinine 2.85 H Estim Creat Clear Calc 19.0 Estimated GFR 16 POC Glucose 42 L* Random Glucose 48 L* Calcium 7.4 L Triglycerides Cholesterol LDL Cholesterol, Calc HDL Cholesterol Vitamin B12 Folate Blood Type Antibody Screen Crossmatch 04/23/20 04/23/20 04/23/20 08:22 09:05 11:20 WBC RBC Hgb Hct MCV MCH MCHC RDW Plt Count MPV Immature Gran % (Auto) Neut % (Auto) Lymph % (Auto) [place] % (Auto) Eos % (Auto) Baso % (Auto) Lymph # (Auto) [place] # (Auto) Eos # (Auto) Baso # (Auto) Abs Immat Gran (auto) Absolute Neuts (auto) Absolute Nucleated RBC Nucleated RBC % (auto) Sodium Potassium Chloride Carbon Dioxide Anion Gap BUN Creatinine Estim Creat Clear Calc Estimated GFR POC Glucose 72 120 H 151 H Random Glucose Calcium Triglycerides Cholesterol LDL Cholesterol, Calc HDL Cholesterol Vitamin B12 Folate Blood Type Antibody Screen Crossmatch 04/23/20 16:30 WBC RBC Hgb Hct MCV MCH MCHC RDW Plt Count MPV Immature Gran % (Auto) Neut % (Auto) Lymph % (Auto) [place] % (Auto) Eos % (Auto) Baso % (Auto) Lymph # (Auto) [place] # (Auto) Eos # (Auto) Baso # (Auto) Abs Immat Gran (auto) Absolute Neuts (auto) Absolute Nucleated RBC Nucleated RBC % (auto) Sodium Potassium Chloride Carbon Dioxide Anion Gap BUN Creatinine Estim Creat Clear Calc Estimated GFR POC Glucose 71 Random Glucose Calcium Triglycerides Cholesterol LDL Cholesterol, Calc HDL Cholesterol Vitamin B12 Folate Blood Type Antibody Screen Crossmatch Imaging Radiology Impressions: ITS Impressions Foot X-Ray 04/14/20 21:05 IMPRESSION: Findings highly concerning for osteomyelitis involving the tip of the terminal phalanx of the right great toe. Abdomen/Pelvis CT 04/15/20 00:00 IMPRESSION: 1. Extensive facet arthropathy of the lower lumbar spine. 2. Thick-walled appearance of the urinary bladder may be due to underdistention. Small focus of gas is present which could be due to recent catheterization versus infection in the proper clinical setting. Lower Extremity CT 04/15/20 00:00 IMPRESSION: Diffuse superficial edema involving posterior right lower leg extending into the anterior and posterior compartments of right foot and into the right great toe. There is a focal gas collection seen along the dorsal tip of the right great toe, but no drainable abscess seen. There is no bony erosive changes, periosteal thickening or fracture seen in the right lower extremity or the right foot. The joint spaces are maintained throughout. There is atherosclerotic calcification of anterior and posterior tibial arteries with posterior tibial artery continuing into the right foot. Foot CT 04/15/20 00:45 IMPRESSION: Diffuse superficial edema involving posterior right lower leg extending into the anterior and posterior compartments of right foot and into the right great toe. There is a focal gas collection seen along the dorsal tip of the right great toe, but no drainable abscess seen. There is no bony erosive changes, periosteal thickening or fracture seen in the right lower extremity or the right foot. The joint spaces are maintained throughout. There is atherosclerotic calcification of anterior and posterior tibial arteries with posterior tibial artery continuing into the right foot. Duplex Scan Lower Extremity Artery 04/17/20 12:03 IMPRESSION: Marked bilateral peripheral vascular disease bilateral SFA occlusions and monophasic flow in the common femoral arteries suggestive of severe inflow disease. Recent noncontrast CT scan demonstrated considerable atherosclerotic plaque in the aorta and iliac vessels but without IV contrast, the luminal inflow cannot be assessed. CT angiography would be helpful for further evaluation. If the patient's creatinine precludes this, MR angiography may be of value, possibly even with iron contrast agents. Myocardial Perfusion Scan Nuc Med 04/20/20 11:33 Impression: 1. Myocardial perfusion imaging study shows moderate size inferior wall ischemia, however this may be underestimated given the TID and change in ejection fraction at rest 2. Gated LVEF is 41% with stress and 58% with rest 3. Transient ischemic dilatation present EKG is nondiagnostic for ischemia Chest X-Ray 04/22/20 12:30 IMPRESSION: Low lung volumes with subtle hazy opacity in the right lower lobe that may reflect atelectasis or developing infiltrate. Mental Status Exam Mental Status Exam Patient Appearance: Fatigued and Disheveled Patient Orientation: Person, Place, Time and Situation Level of Consciousness: Awake Patient Behavior: Talkative Mood Description: Calm and Anxious Affect Description: Calm Patient Cognition Impaired: No Ability to Follow Directions: Good Speech Pattern: Clear Memory Description: Intact Hallucinations: None Delusions: Not Present Thought Process: Intact Thought Content: positive for Intact Judgement: Fair Judgement and Insight: patient is aware of the nature surgery and medical interventions and agrees to the same. However she wishes for more clarification as to the risks given cardiac status. Medications Medications Current Medications Generic Name Dose Route Start Last Admin Trade Name Freq PRN Reason Stop Dose Admin Acetaminophen 650 mg 04/14/20 23:06 04/22/20 20:45 Acetaminophen 325 Mg Tablet PO 650 mg Q6H PRN Administration Pain, Mild (Pain Scale 1-3) Amlodipine Besylate 10 mg 04/23/20 09:00 04/23/20 08:51 Amlodipine Besylate 5 Mg Tablet PO 10 mg DAILY RAUL Administration Protocol Ascorbic Acid 250 mg 04/23/20 09:00 04/23/20 08:46 Ascorbic Acid 250 Mg Tablet PO 250 mg BID RAUL Administration Aspirin 325 mg 04/22/20 09:00 04/23/20 08:45 Aspirin 325 Mg Tablet PO 325 mg DAILY RAUL Administration Atorvastatin Calcium 80 mg 04/22/20 21:00 04/22/20 20:41 Atorvastatin Calcium 80 Mg Tablet PO 80 mg BEDTIME RAUL Administration Atropine Sulfate 1 drop 04/15/20 09:00 04/23/20 16:29 Atropine Sulfate 1 % Ophth Jacki 2 Ml Bottle EYE-LEFT 1 drop TID RAUL Administration Calcium Carbonate/Cholecalciferol 500 mg 04/17/20 13:30 04/23/20 09:00 Calcium + Vitamin D 250 Mg Tablet PO 500 mg DAILY [facility] Administration Cyanocobalamin 1,000 mcg 04/23/20 14:15 04/23/20 16:45 Cyanocobalamin (Vitamin B-12) 1,000 Mcg/Ml Vial IM 05/14/20 09:01 1,000 mcg Q7D@0900 [facility] Administration Docusate Sodium 100 mg 04/15/20 09:00 04/23/20 08:46 Docusate Sodium 100 Mg Capsule PO 100 mg BID RAUL Administration Ferrous Sulfate 324 mg 04/23/20 08:00 04/23/20 16:45 Ferrous Sulfate 324 Mg Tablet. PO 324 mg BIDWM RAUL Administration Guaifenesin/Dextromethorphan 10 ml 04/22/20 09:30 04/23/20 16:28 Guaifenesin Dm 100/10/5 Ml 5 Ml Syrup PO 10 ml Q6H [facility] Administration Ceftriaxone Sodium 1 gm/ 50 mls @ 100 mls/hr 04/20/20 17:00 04/23/20 17:27 Sodium Chloride IV 100 mls/hr Q24H [facility] Administration Metronidazole 500 mg in 100 mls @ 100 mls/hr 04/21/20 16:00 04/23/20 17:33 Flagyl IV Infused Q8H [facility] Infusion Insulin Human Lispro 0 unit 04/15/20 07:30 04/23/20 16:31 Insulin Lispro 100 Unit/Ml 3 Ml Vial SUBCUT Not Given QIDACHS [facility] Protocol Lidocaine 2 patch 04/15/20 09:15 04/23/20 08:59 Lidocaine 4 % Patch Adh..Patch TRANSDERMA 2 patch DAILY [facility] Administration Protocol Metoprolol Tartrate 50 mg 04/23/20 21:00 Metoprolol Tartrate 25 Mg Tablet PO BID [facility] Protocol Omeprazole 20 mg 04/22/20 06:30 04/23/20 06:28 Omeprazole 20 Mg Capsule. PO Not Given DAILY@0630 [facility] Pharmacy Consult 1 each 04/14/20 23:02 Consult Rx Vancomycin Dosing MISCELLANE DAILY PRN Consult order Prednisolone Acetate 1 drop 04/15/20 09:00 04/23/20 10:28 Prednisolone Acetate 1 % Oph Susp 5 Ml Drpbtl EYE-LEFT 1 drop DAILY [facility]UL Administration Senna 17.2 mg 04/14/20 23:06 Sennosides 8.6 Mg Tablet PO BEDTIME PRN Constipation Sodium Chloride 3 ml 04/15/20 00:00 04/23/20 16:28 0.9 % Sodium Chloride Flush 3 Ml Syringe IVFLUSH 3 ml QSHIFT [facility] Administration Timolol Maleate 1 drop 04/15/20 09:00 04/23/20 10:29 Timolol Maleate Xe 0.25 % Gel 5 Ml Drbtl EYE-RIGHT 1 drop DAILY [facility]UL Administration Allergies Allergies Allergy/AdvReac Type Severity Reaction Status Date / Time No Known Allergies Allergy Verified 04/14/20 20:37 [No Known Allergies*] Assessment & Plan Patient is competent to make medical decisions. Today she was in clear mentation and has a good idea of the need for surgery. However she wants clarification regarding risks of surgery in the context of cardiac status. And approach of education clarification and communication with this patient would be helpful. I have discussed the case with Dr. Knapp Greater than 50% of the session was spent on counseling and/or coordination of care
--- NOTE | 2020-04-23 19:21 | P.PNNP_ITS ---
Subjective Subjective Date of Service: 04/23/20 Interval history: Seen and examined. Events noted Physical Exam Vital Signs: Vital Signs: Last Vital Signs Temp 99.3 F 04/23/20 15:40 Pulse 86 04/23/20 15:40 Resp 18 04/23/20 15:40 BP 151/71 H 04/23/20 15:40 Pulse Ox 94 04/23/20 15:40 Body Mass Index 32.3 Const: General: cooperative, no acute distress and awake Orientation/consciousness: oriented to person and oriented to place Li mitations: no limitations HENMT: Head: Yes normal to inspection, Yes normocephalic and Yes atraumatic Ears: external ears normal General nose exam: Normal external nose present Face and sinus: Yes normal facial exam Mouth: Normal oral and palatal mucosa present Throat: Yes posterior oropharynx normal Eyes: General: appearance normal, both eyes and all related structures Periorbital: periorbital findings normal Eyelids: Yes eyelids normal Conjunctivae: conjunctivae normal Sclerae: sclerae normal Corneas: corneas normal Pupils: Equal, round and reactive pupils present Neck: Neck: Yes full ROM, Yes no lymphadenopathy, Yes no meningeal signs, Yes trachea midline, Yes supple and Yes no JVD Carotids: no bruits Chest: Chest palpation & inspection: normal inspection of the chest and normal palpation of entire chest wall Resp: Effort & Inspection: normal respiratory effort and able to speak in complete sentences Auscultation: clear to auscultation bilaterally Cardio: Rate: regular rate and tachycardic Rhythm: regular rhythm Heart sounds: S1 normal heart sound present, S2 normal heart sound present and no murmurs Bruits: no carotid bruits Peripheral pulses: other (Unable to plapate DP, PT bilaterally) GI: Inspection: Yes normal to inspection Palpation (GI): Soft to palpation, nontender, no guarding, not rigid and No hepatosplenomegaly present : General: Yes no CVA tenderness Back/Spine/Pelvis: Back: no CVA tenderness Cervical Spine: normal cervical lordosis Thoracic/Lumbar Spine: thoracic and lumbar spine normal to inspection and paraspinal muscle tenderness bilaterally in the mid lumbar and in the lower lumbar Skin: Other: Improving erythema of the Right foot and less tenderness to palpation. No drainage. General skin exam: no rashes or lesions noted Lesions: no lesions Rashes: other (Right great toe infection) Wounds: no wounds Hair: normal Neuro: General: oriented to person, oriented to place and no meningeal signs Cranial nerves: Yes CN's II-XII intact bilaterally and Yes Equal, round and reactive pupils present Cognition (Neuro): normal cognition Speech: Abnormal speech present Motor exam (neuro): 5/5 motor strength present throughout Extrem: Other: great toe black tip,mild proximal cellulitis General: Yes normal to inspection, Yes full ROM, Yes no clubbing, cyanosis or edema, No clubbing, No cyanosis and No edema Psych: Appearance: well kempt Mental Status: mental status grossly normal Speech and movement: Normal speech and movement present Affect: normal affect Attitude: cooperative Thought process: Normal thought process p resent Thought content: Normal thought content present Objective Data Labs CBC & Chem 7: 04/23/20 06:01 04/23/20 06:01 Labs: Laboratory Results - last 24 hr 04/22/20 04/23/20 04/23/20 19:41 06:01 06:01 WBC 13.0 H RBC 2.88 L Hgb 8.1 L Hct 26.2 L MCV 91.0 MCH 28.1 MCHC 30.9 L RDW 13.2 Plt Count 251 MPV 10.4 Immature Gran % (Auto) 0.5 H Neut % (Auto) 72.2 Lymph % (Auto) 15.3 L [place] % (Auto) 9.2 Eos % (Auto) 2.3 Baso % (Auto) 0.5 Lymph # (Auto) 2.0 [place] # (Auto) 1.2 Eos # (Auto) 0.3 Baso # (Auto) 0.1 Abs Immat Gran (auto) 0.07 H Absolute Neuts (auto) 9.4 H Absolute Nucleated RBC 0.000 Nucleated RBC % (auto) 0.0 Sodium 140 Potassium 3.9 Chloride 113 H Carbon Dioxide 18 L Anion Gap 13 BUN 31 H Creatinine 2.85 H Estim Creat Clear Calc 19.0 Estimated GFR 16 POC Glucose 85 Random Glucose 48 L* Calcium 7.4 L 04/23/20 04/23/20 04/23/20 07:24 08:22 09:05 WBC RBC Hgb Hct MCV MCH MCHC RDW Plt Count MPV Immature Gran % (Auto) Neut % (Auto) Lymph % (Auto) [place] % (Auto) Eos % (Auto) Baso % (Auto) Lymph # (Auto) [place] # (Auto) Eos # (Auto) Baso # (Auto) Abs Immat Gran (auto) Absolute Neuts (auto) Absolute Nucleated RBC Nucleated RBC % (auto) Sodium Potassium Chloride Carbon Dioxide Anion Gap BUN Creatinine Estim Creat Clear Calc Estimated GFR POC Glucose 42 L* 72 120 H Random Glucose Calcium 04/23/20 04/23/20 11:20 16:30 WBC RBC Hgb Hct MCV MCH MCHC RDW Plt Count MPV Immature Gran % (Auto) Neut % (Auto) Lymph % (Auto) [place] % (Auto) Eos % (Auto) Baso % (Auto) Lymph # (Auto) [place] # (Auto) Eos # (Auto) Baso # (Auto) Abs Immat Gran (auto) Absolute Neuts (auto) Absolute Nucleated RBC Nucleated RBC % (auto) Sodium Potassium Chloride Carbon Dioxide Anion Gap BUN Creatinine Estim Creat Clear Calc Estimated GFR POC Glucose 151 H 71 Random Glucose Calcium Microbiology Microbiology Results: Microbiology 04/21/20 05:05 Blood - Venous Blood Culture - Preliminary No growth after 48 hours. 04/21/20 04:59 Blood - Venous Blood Culture - Preliminary No growth after 48 hours. 04/18/20 00:12 Blood - Venous Blood Culture - Final No growth after 5 days. 04/18/20 00:16 Blood - Venous Blood Culture - Final No growth after 5 days. 04/14/20 21:49 Blood - Venous Blood Culture - Final No growth after 5 days. 04/14/20 21:49 Blood - Venous Blood Culture - Final No growth after 5 days. 04/14/20 Unknown Urine clean catch - Clean Catch Midstream Urine Culture - Final Klebsiella pneumoniae Assessment & Plan Assessment and plan (1) Osteomyelitis of great toe of right foot: Status: Acute (2) Acute kidney injury: Status: Acute (3) Diabetic foot infection: Problem details: continue antibiotics,plan per Dr Blood Status: Acute (4) Essential hypertension: Status: Acute (5) PAD (peripheral artery disease): Status: Acute Assessment and Plan: . 75-year-old female with a past medical history of hypertension, hyperlipidemia, diabetes, legally blind, lives alone presented to the hospital with a chief complaint of right lower extremity pain w/u c/w osteo and isxchemic leg s/p angio and now being eval for vasc leg bypass 1. KRYSTYNA: Scr slrt better today but still not back to bsl; multoifact including IV dye load; active infection and uncontrolled HTN 2. 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 Anemia: epo and Fe def 4. PVDz 5. H/O Uncontrolled HTN: refusing meds on/off 6. Blind REC: track UOP/renal fumc; encourage her to take meds and xfusion as needed; procrit as noted; PO Fe ( avoid IV Fe given active infection); protect non- dominant arm for future AVF Time Spent With Patient Time: Total time spent is greater than 50% in coordination of care (as documented) at patient's floor/unit and/or counseling patient:
[2020-04-23 19:26] VITALS: BP 176/76; PULSE 92; RESP 18; TEMP 37.1; O2SAT 94
[2020-04-23 19:55] LABS: Glucose, Whole Blood 106 mg/dL (60-115)
[2020-04-23] MEDS: Metoprolol Tartrate 25 MG TABLET 50 MG PO (21:02)
[2020-04-23] MEDS: Atorvastatin Calcium 80 MG TABLET PO (21:03)
[2020-04-24] VITALS (9 sets, daily range): BP systolic 144–175; BP diastolic 64–77; PULSE 58–94; RESP 18–20; TEMP 36.1–36.9; O2SAT 92–98
[2020-04-24] MEDS: traZODone HCL 25 MG HALFTAB PO (00:23)
[2020-04-24] MEDS: Acetaminophen 325 MG TABLET 650 MG PO (00:23)
[2020-04-24] MEDS: Omeprazole 20 MG CAPSULE.DR PO (05:04)
[2020-04-24] MEDS: guaiFENesin DM 100/10/5 ML 5 ML SYRUP 10 ML PO ×2 (05:04→16:49)
--- NOTE | 2020-04-24 05:46 | MHC.PIE ---
late entry 04/233 p; pt c/o sob, anxious and agitated i; dr cary notified; new order trazodone 25 mg now, atarax 25 mg q8 prn, duoneb upd q4 prn i; pt slept comfortably throughout the night, will cont to monitor
[2020-04-24 06:28] LABS: Anion Gap 15 (12-20); Blood Urea Nitrogen 36 mg/dL (9-16); Calcium 7.7 mg/dL (8.4-10.2); Carbon Dioxide 17 mmol/L (22-29); Chloride 112 mmol/L (96-108); Creatinine Clr Calc Pharmacy 18.8; Estimated Glomerular Filt Rate 16; Glucose Random 90 mg/dL (60-115); Potassium 4.5 mmol/L (3.3-5.1); Sodium 139 mmol/L (135-145)
[2020-04-24 08:02] LABS: Glucose, Whole Blood 87 mg/dL (60-115)
[2020-04-24] MEDS: Aspirin 325 MG TABLET PO (08:15)
[2020-04-24] MEDS: Calcium + Vitamin D 250 MG TABLET 500 MG PO (08:16)
[2020-04-24] MEDS: Metoprolol Tartrate 25 MG TABLET 50 MG PO ×2 (08:17→20:46)
[2020-04-24] MEDS: amLODIPine Besylate 5 MG TABLET 10 MG PO (08:18)
[2020-04-24] MEDS: Ascorbic Acid 250 MG TABLET PO ×2 (08:18→20:46)
[2020-04-24] MEDS: Ferrous Sulfate 324 MG TABLET.DR PO ×2 (08:19→16:49)
[2020-04-24] MEDS: Docusate Sodium 100 MG CAPSULE PO (08:19)
[2020-04-24] MEDS: 0.9 % Sodium Chloride Flush 3 ML SYRINGE IVFLUSH ×2 (08:21→16:52)
[2020-04-24] MEDS: metroNIDAZOLE/NS 500 MG/100 ML PIGGYBACK 100 MG IV ×2 (08:21→16:51)
[2020-04-24] MEDS: Atropine Sulfate 1 % Ophth Sol 2 ML BOTTLE 1 DROP EYE-LEFT ×2 (08:22→16:52)
[2020-04-24] MEDS: prednisoLONE Acetate 1 % Oph Susp 5 ML DRPBTL 1 DROP EYE-LEFT (08:23)
[2020-04-24] MEDS: Lidocaine 4 % Patch ADH..PATCH 2 PATCH TRANSDERMA (08:28)
--- NOTE | 2020-04-24 08:52 | MHC.CM.PN ---
pt is in need of surgery, however it is unclear as to if she will have it. pt may be in need of STR at some point after this hospitalization pending a PT eval. cm to cont. to follow.
--- NOTE | 2020-04-24 11:43 | HO.VASCPN ---
Subjective Subjective Date of Service: 04/24/20 Patient reports: no new complaints and feels better Interval history: 75-year-old female with nonhealing right great toe ulcer. She has significantly more confused this morning. Did have a pleasant conversation but upon discussion with her she was not oriented to time place or person. She has undergone cardiac risk stratification. No significant change in her nonhealing ulcer. Physical Exam Vital Signs: Vital Signs: Last Vital Signs Temp 98.1 F 04/24/20 08:00 Pulse 94 04/24/20 08:18 Resp 20 04/24/20 08:00 BP 169/77 H 04/24/20 08:18 Pulse Ox 98 04/24/20 08:00 Body Mass Index 32.3 Const: General: cooperative, healthy appearing and no acute distress Orientation/consciousness: oriented to person, oriented to place and oriented to time HENMT: Head: Yes normal to inspection Neck: Carotids: no bruits Chest: Chest palpation & inspection: normal inspection of the chest Resp: Effort & Inspection: normal respiratory effort and able to speak in complete sentences Auscultation: clear to auscultation bilaterally Cardio: Rate: regular rate Heart sounds: S1 normal heart sound present and S2 normal heart sound present GI: Inspection: Yes normal to inspection Skin: General skin exam: no rashes or lesions noted Wounds: wounds noted (Right great toe dry gangrene with surrounding cellulitis) Neuro: General: oriented to person, oriented to place, oriented to time and CN's II-XI intact bilaterally Extrem: General: Yes normal to inspection, Yes full ROM and Yes no clubbing, cyanosis or edema Psych: Appearance: grossly normal and well kempt Speech and movement: Normal speech and movement present Affect: normal affect Progress Note: A&P Assessment and plan (1) PAD (peripheral artery disease): Status: Acute Assessment and Plan: Patient has nonhealing right great toe ulcer. Will continue with conservative measures including antibiotics for now. She does need femoral to femoral bypass. She will need cardiac clearance prior to major intervention. At the current time she is on stable to undergo cardiac catheterization. Once she is stable and undergoes cardiac catheterization she may have vascular revision which will most likely require a femoral to femoral bypass (left to right). If she undergoes amp without revascularization it will most likely be nonhealing and end up as a BKA. At the current time would continue would conservative antibiotics right now. Once stable will undergo cardiac risk stratification. We will peripherally follow with you. Thank you for allowing us to assist in her care. Fall Risk Details Current Medications: Current Medications Generic Name Dose Route Start Last Admin Trade Name Steve PRN Reason Stop Dose Admin Acetaminophen 650 mg 04/14/20 23:06 04/24/20 00:23 Acetaminophen 325 Mg Tablet PO 650 mg Q6H PRN Administration Pain, Mild (Pain Scale 1-3) Albuterol/Ipratropium 3 ml 04/23/20 23:39 Albuterol/Iprat 2.5/0.5mg 3 Ml Ampul.Neb INHALE RQ4H PRN Shortness of Breath/Wheezing Amlodipine Besylate 10 mg 04/23/20 09:00 04/24/20 08:18 Amlodipine Besylate 5 Mg Tablet PO 10 mg DAILY RAUL Administration Protocol Ascorbic Acid 250 mg 04/23/20 09:00 04/24/20 08:18 Ascorbic Acid 250 Mg Tablet PO 250 mg BID RAUL Administration Aspirin 325 mg 04/22/20 09:00 04/24/20 08:15 Aspirin 325 Mg Tablet PO 325 mg DAILY RAUL Administration Atorvastatin Calcium 80 mg 04/22/20 21:00 04/23/20 21:03 Atorvastatin Calcium 80 Mg Tablet PO 80 mg BEDTIME RAUL Administration Atropine Sulfate 1 drop 04/15/20 09:00 04/24/20 08:22 Atropine Sulfate 1 % Ophth Jacki 2 Ml Bottle EYE-LEFT 1 drop TID RAUL Administration Calcium Carbonate/Cholecalciferol 500 mg 04/17/20 13:30 04/24/20 08:16 Calcium + Vitamin D 250 Mg Tablet PO 500 mg DAILY RAUL Administration Cyanocobalamin 1,000 mcg 04/23/20 14:15 04/23/20 16:45 Cyanocobalamin (Vitamin B-12) 1,000 Mcg/Ml Vial IM 05/14/20 09:01 1,000 mcg Q7D@0900 RAUL Administration Docusate Sodium 100 mg 04/15/20 09:00 04/24/20 08:19 Docusate Sodium 100 Mg Capsule PO 100 mg BID RAUL Administration Ferrous Sulfate 324 mg 04/23/20 08:00 04/24/20 08:19 Ferrous Sulfate 324 Mg Tablet. PO 324 mg BIDWM RAUL Administration Guaifenesin/Dextromethorphan 10 ml 04/22/20 09:30 04/24/20 09:52 Guaifenesin Dm 100/10/5 Ml 5 Ml Syrup PO Not Given Q6H RAUL Hydroxyzine HCl 25 mg 04/23/20 23:39 Hydroxyzine Hcl 25 Mg Tablet PO Q8H PRN anxiety/restlessness Ceftriaxone Sodium 1 gm/ 50 mls @ 100 mls/hr 04/20/20 17:00 04/23/20 18:14 Sodium Chloride IV Infused Q24H RAUL Infusion Metronidazole 500 mg in 100 mls @ 100 mls/hr 04/21/20 16:00 04/24/20 09:52 Flagyl IV Infused Q8H RAUL Infusion Insulin Human Lispro 0 unit 04/15/20 07:30 04/24/20 08:35 Insulin Lispro 100 Unit/Ml 3 Ml Vial SUBCUT Not Given QIDACHS [facility] Protocol Lidocaine 2 patch 04/15/20 09:15 04/24/20 08:28 Lidocaine 4 % Patch Adh..Patch TRANSDERMA 2 patch DAILY [facility] Administration Protocol Metoprolol Tartrate 50 mg 04/23/20 21:00 04/24/20 08:17 Metoprolol Tartrate 25 Mg Tablet PO 50 mg BID [facility] Administration Protocol Omeprazole 20 mg 04/22/20 06:30 04/24/20 05:04 Omeprazole 20 Mg Capsule.Dr PO 20 mg DAILY@0630 [facility] Administration Pharmacy Consult 1 each 04/14/20 23:02 Consult Rx Vancomycin Dosing MISCELLANE DAILY PRN Consult order Prednisolone Acetate 1 drop 04/15/20 09:00 04/24/20 08:23 Prednisolone Acetate 1 % Oph Susp 5 Ml Drpbtl EYE-LEFT 1 drop DAILY [facility] Administration Senna 17.2 mg 04/14/20 23:06 Sennosides 8.6 Mg Tablet PO BEDTIME PRN Constipation Sodium Chloride 3 ml 04/15/20 00:00 04/24/20 08:21 0.9 % Sodium Chloride Flush 3 Ml Syringe IVFLUSH 3 ml QSHIFT [facility] Administration Timolol Maleate 1 drop 04/15/20 09:00 04/24/20 08:23 Timolol Maleate Xe 0.25 % Gel 5 Ml Drbtl EYE-RIGHT 1 drop DAILY RAUL Administration Time Spent With Patient Time: Total time spent is greater than 50% in coordination of care (as documented) at patient's floor/unit and/or counseling patient: Time with patient: 15 - 24 minutes
[2020-04-24 11:56] LABS: Glucose, Whole Blood 71 mg/dL (60-115)
--- NOTE | 2020-04-24 13:04 | HO.PM.IMPN ---
Subjective Subjective Date of Service: 04/24/20 Interval History: Patient complaining of something chewing on her toes, especially right big toe, otherwise denies any shortness of breath, no pain, no fever chills no other acute issues overnight ROS General no headache, no dizziness, no fever, chills. CVS no chest pain, no palpitation. Respiratory no cough, no shortness of breath Gastrointestinal no nausea, no vomiting, no abdominal pain, no diarrhea Physical Exam Vital Signs: Vital Signs: Last Vital Signs Temp 98.4 F 04/24/20 11:51 Pulse 58 04/24/20 11:51 Resp 18 04/24/20 11:51 BP 163/70 H 04/24/20 11:51 Pulse Ox 95 04/24/20 11:51 Body Mass Index 32.3 General awake alert, and cooperative. Neck is supple no JVD. CVS regular rate rhythm, Respiratory lungs clear to auscultation, no respiratory distress, no wheeze, no rhonchi. Gastrointestinal abdomen soft, nontender, bowel sounds audible, no guarding , no rigidity. Extremities right great toe dry gangrene, no drainage, no redness and no swelling on dorsum of foot Neuro nonfocal, legally blind Skin no rash Objective Data Current Medications Generic Name Dose Route Start Last Admin Trade Name Freq PRN Reason Stop Dose Admin Acetaminophen 650 mg 04/14/20 23:06 04/24/20 00:23 Acetaminophen 325 Mg Tablet PO 650 mg Q6H PRN Administration Pain, Mild (Pain Scale 1-3) Albuterol/Ipratropium 3 ml 04/23/20 23:39 Albuterol/Iprat 2.5/0.5mg 3 Ml Ampul.Neb INHALE RQ4H PRN Shortness of Breath/Wheezing Amlodipine Besylate 10 mg 04/23/20 09:00 04/24/20 08:18 Amlodipine Besylate 5 Mg Tablet PO 10 mg DAILY RAUL Administration Protocol Ascorbic Acid 250 mg 04/23/20 09:00 04/24/20 08:18 Ascorbic Acid 250 Mg Tablet PO 250 mg BID RAUL Administration Aspirin 325 mg 04/22/20 09:00 04/24/20 08:15 Aspirin 325 Mg Tablet PO 325 mg DAILY RAUL Administration Atorvastatin Calcium 80 mg 04/22/20 21:00 04/23/20 21:03 Atorvastatin Calcium 80 Mg Tablet PO 80 mg BEDTIME RAUL Administration Atropine Sulfate 1 drop 04/15/20 09:00 04/24/20 08:22 Atropine Sulfate 1 % Ophth Jacki 2 Ml Bottle EYE-LEFT 1 drop TID [facility] Administration Calcium Carbonate/Cholecalciferol 500 mg 04/17/20 13:30 04/24/20 08:16 Calcium + Vitamin D 250 Mg Tablet PO 500 mg DAILY RAUL Administration Cyanocobalamin 1,000 mcg 04/23/20 14:15 04/23/20 16:45 Cyanocobalamin (Vitamin B-12) 1,000 Mcg/Ml Vial IM 05/14/20 09:01 1,000 mcg Q7D@0900 RAUL Administration Docusate Sodium 100 mg 04/15/20 09:00 04/24/20 08:19 Docusate Sodium 100 Mg Capsule PO 100 mg BID [facility] Administration Ferrous Sulfate 324 mg 04/23/20 08:00 04/24/20 08:19 Ferrous Sulfate 324 Mg Tablet. PO 324 mg BIDWM RAUL Administration Guaifenesin/Dextromethorphan 10 ml 04/22/20 09:30 04/24/20 09:52 Guaifenesin Dm 100/10/5 Ml 5 Ml Syrup PO Not Given Q6H [facility] Heparin Sodium (Porcine) 5,000 unit 04/24/20 12:45 Heparin Sodium,Porcine 5,000 Unit/Ml Vial SUBCUT Q12H [facility] Hydroxyzine HCl 25 mg 04/23/20 23:39 Hydroxyzine Hcl 25 Mg Tablet PO Q8H PRN anxiety/restlessness Ceftriaxone Sodium 1 gm/ 50 mls @ 100 mls/hr 04/20/20 17:00 04/23/20 18:14 Sodium Chloride IV Infused Q24H [facility] Infusion Metronidazole 500 mg in 100 mls @ 100 mls/hr 04/21/20 16:00 04/24/20 09:52 Flagyl IV Infused Q8H [facility] Infusion Insulin Human Lispro 0 unit 04/15/20 07:30 04/24/20 12:47 Insulin Lispro 100 Unit/Ml 3 Ml Vial SUBCUT Not Given QIDACHS [facility] Protocol Lidocaine 2 patch 04/15/20 09:15 04/24/20 08:28 Lidocaine 4 % Patch Adh..Patch TRANSDERMA 2 patch DAILY [facility] Administration Protocol Metoprolol Tartrate 50 mg 04/23/20 21:00 04/24/20 08:17 Metoprolol Tartrate 25 Mg Tablet PO 50 mg BID [facility] Administration Protocol Omeprazole 20 mg 04/22/20 06:30 04/24/20 05:04 Omeprazole 20 Mg Capsule.Dr PO 20 mg DAILY@0630 [facility] Administration Pharmacy Consult 1 each 04/14/20 23:02 Consult Rx Vancomycin Dosing MISCELLANE DAILY PRN Consult order Prednisolone Acetate 1 drop 04/15/20 09:00 04/24/20 08:23 Prednisolone Acetate 1 % Oph Susp 5 Ml Drpbtl EYE-LEFT 1 drop DAILY [facility] Administration Senna 17.2 mg 04/14/20 23:06 Sennosides 8.6 Mg Tablet PO BEDTIME PRN Constipation Sodium Chloride 3 ml 04/15/20 00:00 04/24/20 08:21 0.9 % Sodium Chloride Flush 3 Ml Syringe IVFLUSH 3 ml QSHIFT [facility] Administration Timolol Maleate 1 drop 04/15/20 09:00 04/24/20 08:23 Timolol Maleate Xe 0.25 % Gel 5 Ml Drbtl EYE-RIGHT 1 drop DAILY [facility] Administration Labs CBC & Chem 7: 04/23/20 06:01 04/24/20 05:18 Microbiology Microbiology Results: Microbiology 04/21/20 05:05 Blood - Venous Blood Culture - Preliminary No growth after 48 hours. 04/21/20 04:59 Blood - Venous Blood Culture - Preliminary No growth after 48 hours. 04/18/20 00:12 Blood - Venous Blood Culture - Final No growth after 5 days. 04/18/20 00:16 Blood - Venous Blood Culture - Final No growth after 5 days. 04/14/20 21:49 Blood - Venous Blood Culture - Final No growth after 5 days. 04/14/20 21:49 Blood - Venous Blood Culture - Final No growth after 5 days. 04/14/20 Unknown Urine clean catch - Clean Catch Midstream Urine Culture - Final Klebsiella pneumoniae Assessment and Plan (1) Diarrhea: Status: Acute (2) UTI due to Klebsiella species: Problem details: She is on antibiotics Some fever may be due to diabetic foot infection She seems to have no rash or reaction to antibiotics Status: Acute (3) Anemia: Status: Acute (4) Essential hypertension: Status: Acute (5) PAD (peripheral artery disease): Status: Acute (6) Diabetic foot infection: Problem details: continue antibiotics,plan per Dr Blood Status: Acute (7) Osteomyelitis of great toe of right foot: Status: Acute (8) Acute kidney injury: Status: Acute Assessment and Plan: 75-year-old female with a past medical history of hypertension, hyperlipidemia, diabetes, legally blind, lives alone presented to the hospital with a chief complaint of right lower extremity pain. Diabetic right foot infection/right toe gangrene/peripheral arterial disease No recurrent fevers, WBC remains elevated around 13,000, on IV ceftriaxone and Flagyl for right toe infection being followed by Dr. Blood , since patient has a positive stress test and require a cardiac catheterization, he recommend to proceed with femur old to female oral bypass left to right after patient undergoes cardiac catheterization since he feels that patient undergo amputation without revascularization it will most likely be nonhealing and end up as a BKA, therefore discuss case with Dr. Jinny Stein really recommend ertapenem 0.5 mg for 6 weeks, will place a midline anti biotic use Will discuss with Cardiology about plan for cardiac catheterization Lexiscan showed moderate size inferior wall ischemia EF 41% with stress and 58 with rest and echocardiogram Diarrhea Resolved, C diff negative was likely related to antibiotics. UTI urine culture grew Klebsiella pneumonia continue IV ceftriaxone day 5/7 Uncontrolled hypertension blood pressure remains elevated increased dose of Norvasc to 10 mg and metoprolol increased to 50 mg b.i.d. yesterday follow blood pressure today remains elevated will add Hydralazine KRYSTYNA on CKD 3B. History of chronic kidney disease with baseline creatinine around 2 most consistent with diabetic nephropathy, creatinine today stable around 2.8 will follow renal function closely case discussed with Dr. Carey s/p IV fluid Avoid nephrotoxins. Acute on chronic anemia, noted to have significant drop in hematocrit therefore received 2 units of packed RBC hematocrit improved, patient received 1 dose of IV Ferrlecit And now on iron supplement and vitamin-C B12 is low at 159/ folate is normal patient started on im B12 supplement. stool guaiac came back negative, iron studies consistent with mild iron deficiency, patient seen by Dr. Diego he recommended Pepcid with possibility of gastritis with chronic use of aspirin And recommend outpatient colonoscopy. Patient also evaluated by Dr. Monroy and she agrees with iron replacement. Hyperkalemia. Resolved with kayexalate Back pain. Chronic with no acute exacerbation continue lidocaine and oxycodone Diabetes Noted to have low blood sugars today therefore will discontinue glyburide, follow blood sugar closely and continue ADA diet and insulin sliding scale Legally Blind continue Home eye drops. Competency eval obtained since patient was refusing medications and was resistant to treatment, patient currently more cooperative taking medication, seen by Dr. Nolasco patient is competent to make medical decision, case discussed with psychiatrist. DVT prophylaxis will place patient on subQ heparin and DC mechanical device since stool guaiac negative.
--- NOTE | 2020-04-24 13:31 | MHC.CLN ---
F/U 75/100% PO INTAKE DIET RX: 2200DM-RECOMMEND 1600 CALORIES PER DAY TO PROMOTE SLOW WT LOSS NOTED FRAGILE SKIN FOLLOWING
--- NOTE | 2020-04-24 14:26 | PM.EVENT ---
Event Note Date of Service: 04/24/20 Event Note: would give 6 weeks total Ertapenem .5 mg daily if surgery not done to remove toe
[2020-04-24] MEDS: Heparin Sodium,Porcine 5,000 UNIT/ML VIAL 5000 UNIT SUBCUT (14:48)
[2020-04-24 16:07] LABS: Haptoglobin 357 mg/dL (43-212)
[2020-04-24 16:18] LABS: Glucose, Whole Blood 95 mg/dL (60-115)
--- NOTE | 2020-04-24 16:19 | P.PNNP_ITS ---
Subjective Subjective Date of Service: 04/24/20 Interval history: Seen and examined. Events noted Physical Exam Vital Signs: Vital Signs: Last Vital Signs Temp 97.3 F 04/24/20 15:46 Pulse 82 04/24/20 15:46 Resp 18 04/24/20 15:46 BP 144/64 H 04/24/20 15:46 Pulse Ox 95 04/24/20 15:46 Body Mass Index 32.3 Const: General: cooperative, no acute distress and awake Orientation/consciousness: oriented to person and oriented to place Li mitations: no limitations HENMT: Head: Yes normal to inspection, Yes normocephalic and Yes atraumatic Ears: external ears normal General nose exam: Normal external nose present Face and sinus: Yes normal facial exam Mouth: Normal oral and palatal mucosa present Throat: Yes posterior oropharynx normal Eyes: General: appearance normal, both eyes and all related structures Periorbital: periorbital findings normal Eyelids: Yes eyelids normal Conjunctivae: conjunctivae normal Sclerae: sclerae normal Corneas: corneas normal Pupils: Equal, round and reactive pupils present Neck: Neck: Yes full ROM, Yes no lymphadenopathy, Yes no meningeal signs, Yes trachea midline, Yes supple and Yes no JVD Carotids: no bruits Chest: Chest palpation & inspection: normal inspection of the chest and normal palpation of entire chest wall Resp: Effort & Inspection: normal respiratory effort and able to speak in complete sentences Auscultation: clear to auscultation bilaterally Cardio: Rate: regular rate and tachycardic Rhythm: regular rhythm Heart sounds: S1 normal heart sound present, S2 normal heart sound present and no murmurs Bruits: no carotid bruits Peripheral pulses: other (Unable to plapate DP, PT bilaterally) GI: Inspection: Yes normal to inspection Palpation (GI): Soft to palpation, nontender, no guarding, not rigid and No hepatosplenomegaly present : General: Yes no CVA tenderness Back/Spine/Pelvis: Back: no CVA tenderness Cervical Spine: normal cervical lordosis Thoracic/Lumbar Spine: thoracic and lumbar spine normal to inspection and paraspinal muscle tenderness bilaterally in the mid lumbar and in the lower lumbar Skin: Other: Improving erythema of the Right foot and less tenderness to palpation. No drainage. General skin exam: no rashes or lesions noted Lesions: no lesions Rashes: other (Right great toe infection) Wounds: no wounds Hair: normal Neuro: General: oriented to person, oriented to place and no meningeal signs Cranial nerves: Yes CN's II-XII intact bilaterally and Yes Equal, round and reactive pupils present Cognition (Neuro): normal cognition Speech: Abnormal speech present Motor exam (neuro): 5/5 motor strength present throughout Extrem: Other: great toe black tip,mild proximal cellulitis General: Yes normal to inspection, Yes full ROM, Yes no clubbing, cyanosis or edema, No clubbing, No cyanosis and No edema Psych: Appearance: well kempt Mental Status: mental status grossly normal Speech and movement: Normal speech and movement present Affect: normal affect Attitude: cooperative Thought process: Normal thought process p resent Thought content: Normal thought content present Objective Data Labs CBC & Chem 7: 04/23/20 06:01 04/24/20 05:18 Labs: Laboratory Results - last 24 hr 04/21/20 04/23/20 04/23/20 12:32 16:30 19:51 Haptoglobin 357 H Sodium Potassium Chloride Carbon Dioxide Anion Gap BUN Creatinine Estim Creat Clear Calc Estimated GFR POC Glucose 71 106 Random Glucose Calcium 04/24/20 04/24/20 04/24/20 05:18 07:55 11:49 Haptoglobin Sodium 139 Potassium 4.5 Chloride 112 H Carbon Dioxide 17 L Anion Gap 15 BUN 36 H Creatinine 2.88 H Estim Creat Clear Calc 18.8 Estimated GFR 16 POC Glucose 87 71 Random Glucose 90 D Calcium 7.7 L 04/24/20 16:11 Haptoglobin Sodium Potassium Chloride Carbon Dioxide Anion Gap BUN Creatinine Estim Creat Clear Calc Estimated GFR POC Glucose 95 Random Glucose Calcium Microbiology Microbiology Results: Microbiology 04/21/20 05:05 Blood - Venous Blood Culture - Preliminary No growth after 48 hours. 04/21/20 04:59 Blood - Venous Blood Culture - Preliminary No growth after 48 hours. 04/18/20 00:12 Blood - Venous Blood Culture - Final No growth after 5 days. 04/18/20 00:16 Blood - Venous Blood Culture - Final No growth after 5 days. 04/14/20 21:49 Blood - Venous Blood Culture - Final No growth after 5 days. 04/14/20 21:49 Blood - Venous Blood Culture - Final No growth after 5 days. 04/14/20 Unknown Urine clean catch - Clean Catch Midstream Urine Culture - Final Klebsiella pneumoniae Assessment & Plan Assessment and plan (1) Osteomyelitis of great toe of right foot: Status: Acute (2) Acute kidney injury: Status: Acute (3) Diabetic foot infection: Problem details: continue antibiotics,plan per Dr Blood Status: Acute (4) Essential hypertension: Status: Acute (5) PAD (peripheral artery disease): Status: Acute Assessment and Plan: . 75-year-old female with a past medical history of hypertension, hyperlipidemia, diabetes, legally blind, lives alone presented to the hospital with a chief complaint of right lower extremity pain w/u c/w osteo and isxchemic leg s/p angio and now being eval for vasc leg bypass 1. KRYSTYNA: Scrstuck at 2.8 and ques new bsl vs delayed furhter recovery 2. 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 Anemia: epo and Fe def 4. PVDz 5. H/O Uncontrolled HTN: refusing meds on/off 6. Blind REC: cont procrit and PO Fe; track UOP/renal fumc; encourage her to take meds and xfusion as needed; PO Fe ( avoid IV Fe given active infection); protect non-dominant arm for future AVF; ques vascular bypass later this week Time Spent With Patient Time: Total time spent is greater than 50% in coordination of care (as doc umented) at patient's floor/unit and/or counseling patient:
[2020-04-24] MEDS: cefTRIAXone sodium 1 GM in 0.9 % Sodium Chloride 50 ML IV (18:41)
[2020-04-24 19:56] LABS: Glucose, Whole Blood 158 mg/dL (60-115)
[2020-04-24] MEDS: Atorvastatin Calcium 80 MG TABLET PO (20:47)
[2020-04-25] VITALS (8 sets, daily range): BP systolic 139–168; BP diastolic 53–84; PULSE 63–84; RESP 18–20; TEMP 36.4–37.2; O2SAT 94–97
[2020-04-25] MEDS: 0.9 % Sodium Chloride Flush 3 ML SYRINGE IVFLUSH ×4 (01:15→23:53)
[2020-04-25] MEDS: Heparin Sodium,Porcine 5,000 UNIT/ML VIAL 5000 UNIT SUBCUT ×3 (01:15→23:54)
[2020-04-25] MEDS: metroNIDAZOLE/NS 500 MG/100 ML PIGGYBACK 100 MG IV ×4 (01:15→23:53)
[2020-04-25] MEDS: Acetaminophen 325 MG TABLET 650 MG PO ×2 (05:22→10:37)
[2020-04-25] MEDS: guaiFENesin DM 100/10/5 ML 5 ML SYRUP 10 ML PO ×4 (05:23→21:10)
[2020-04-25] MEDS: Omeprazole 20 MG CAPSULE.DR PO (05:23)
[2020-04-25 07:59] LABS: Glucose, Whole Blood 166 mg/dL (60-115)
[2020-04-25] MEDS: Docusate Sodium 100 MG CAPSULE PO (09:24)
[2020-04-25] MEDS: Ascorbic Acid 250 MG TABLET PO ×2 (09:24→21:12)
[2020-04-25] MEDS: Calcium + Vitamin D 250 MG TABLET 500 MG PO (09:24)
[2020-04-25] MEDS: Metoprolol Tartrate 25 MG TABLET 50 MG PO ×2 (09:24→21:12)
[2020-04-25] MEDS: Aspirin 325 MG TABLET PO (09:24)
[2020-04-25] MEDS: Lidocaine 4 % Patch ADH..PATCH 2 PATCH TRANSDERMA (09:24)
[2020-04-25] MEDS: Ferrous Sulfate 324 MG TABLET.DR PO ×2 (09:25→17:45)
[2020-04-25] MEDS: amLODIPine Besylate 5 MG TABLET 10 MG PO (09:25)
[2020-04-25] MEDS: Atropine Sulfate 1 % Ophth Sol 2 ML BOTTLE 1 DROP EYE-LEFT ×2 (10:29→21:15)
[2020-04-25] MEDS: prednisoLONE Acetate 1 % Oph Susp 5 ML DRPBTL 1 DROP EYE-LEFT (10:31)
[2020-04-25 11:13] LABS: Glucose, Whole Blood 186 mg/dL (60-115)
--- NOTE | 2020-04-25 12:14 | P.PNNP_ITS ---
Subjective Subjective Date of Service: 04/25/20 Interval history: Seen and examined. Events noted Physical Exam Vital Signs: Vital Signs: Last Vital Signs Temp 97.6 F 04/25/20 08:00 Pulse 82 04/25/20 11:11 Resp 18 04/25/20 08:00 BP 163/73 H 04/25/20 11:11 Pulse Ox 97 04/25/20 11:11 Body Mass Index 32.3 Const: General: cooperative, no acute distress and awake Orientation/consciousness: oriented to person and oriented to place Li mitations: no limitations HENMT: Head: Yes normal to inspection, Yes normocephalic and Yes atraumatic Ears: external ears normal General nose exam: Normal external nose present Face and sinus: Yes normal facial exam Mouth: Normal oral and palatal mucosa present Throat: Yes posterior oropharynx normal Eyes: General: appearance normal, both eyes and all related structures Periorbital: periorbital findings normal Eyelids: Yes eyelids normal Conjunctivae: conjunctivae normal Sclerae: sclerae normal Corneas: corneas normal Pupils: Equal, round and reactive pupils present Neck: Neck: Yes full ROM, Yes no lymphadenopathy, Yes no meningeal signs, Yes trachea midline, Yes supple and Yes no JVD Carotids: no bruits Chest: Chest palpation & inspection: normal inspection of the chest and normal palpation of entire chest wall Resp: Effort & Inspection: normal respiratory effort and able to speak in complete sentences Auscultation: clear to auscultation bilaterally Cardio: Rate: regular rate and tachycardic Rhythm: regular rhythm Heart sounds: S1 normal heart sound present, S2 normal heart sound present and no murmurs Bruits: no carotid bruits Peripheral pulses: other (Unable to plapate DP, PT bilaterally) GI: Inspection: Yes normal to inspection Palpation (GI): Soft to palpation, nontender, no guarding, not rigid and No hepatosplenomegaly present : General: Yes no CVA tenderness Back/Spine/Pelvis: Back: no CVA tenderness Cervical Spine: normal cervical lordosis Thoracic/Lumbar Spine: thoracic and lumbar spine normal to inspection and paraspinal muscle tenderness bilaterally in the mid lumbar and in the lower lumbar Skin: Other: Improving erythema of the Right foot and less tenderness to palpation. No drainage. General skin exam: no rashes or lesions noted Lesions: no lesions Rashes: other (Right great toe infection) Wounds: no wounds Hair: normal Neuro: General: oriented to person, oriented to place and no meningeal signs Cranial nerves: Yes CN's II-XII intact bilaterally and Yes Equal, round and reactive pupils present Cognition (Neuro): normal cognition Speech: Abnormal speech present Motor exam (neuro): 5/5 motor strength present throughout Extrem: Other: great toe black tip,mild proximal cellulitis General: Yes normal to inspection, Yes full ROM, Yes no clubbing, cyanosis or edema, No clubbing, No cyanosis and No edema Psych: Appearance: well kempt Mental Status: mental status grossly normal Speech and movement: Normal speech and movement present Affect: normal affect Attitude: cooperative Thought process: Normal thought process p resent Thought content: Normal thought content present Objective Data Labs CBC & Chem 7: 04/23/20 06:01 04/24/20 05:18 Labs: Laboratory Results - last 24 hr 04/21/20 04/24/20 04/24/20 12:32 16:11 19:45 Haptoglobin 357 H POC Glucose 95 158 H 04/25/20 04/25/20 07:54 11:10 Haptoglobin POC Glucose 166 H 186 H Microbiology Microbiology Results: Microbiology 04/21/20 05:05 Blood - Venous Blood Culture - Preliminary No growth after 48 hours. 04/21/20 04:59 Blood - Venous Blood Culture - Preliminary No growth after 48 hours. 04/18/20 00:12 Blood - Venous Blood Culture - Final No growth after 5 days. 04/18/20 00:16 Blood - Venous Blood Culture - Final No growth after 5 days. 04/14/20 21:49 Blood - Venous Blood Culture - Final No growth after 5 days. 04/14/20 21:49 Blood - Venous Blood Culture - Final No growth after 5 days. 04/14/20 Unknown Urine clean catch - Clean Catch Midstream Urine Culture - Final Klebsiella pneumoniae Assessment & Plan Assessment and plan (1) Osteomyelitis of great toe of right foot: Status: Acute (2) Acute kidney injury: Status: Acute (3) Diabetic foot infection: Problem details: continue antibiotics,plan per Dr Blood Status: Acute (4) Essential hypertension: Status: Acute (5) PAD (peripheral artery disease): Status: Acute Assessment and Plan: . 75-year-old female with a past medical history of hypertension, hyperlipidemia, diabetes, legally blind, lives alone presented to the hospital with a chief complaint of right lower extremity pain w/u c/w osteo and isxchemic leg s/p angio and now being eval for vasc leg bypass 1. KRYSTYNA: Scr stuck at 2.8 and ques new bsl vs delayed furhter recovery 2. 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 Anemia: epo and Fe def 4. PVDz 5. H/O Uncontrolled HTN: refusing meds on/off 6. Blind 7. NAGMA REC: cont procrit and PO Fe; cont po NaHCO3; track UOP/renal fumc; encourage her to take meds and xfusion as needed; PO Fe ( avoid IV Fe given active infection); protect non-dominant arm for future AVF; ques vascular bypass later this week Time Spent With Patient Time: Total time spent is greater than 50% in coordination of care (as documented) at patient's floor/unit and/or counseling patient:
--- NOTE | 2020-04-25 13:35 | MHC.CM.PN ---
CM met with patient at the bedside to get STR choices, patient's choice [facility]. Instructed patient might need meet criteria for acute rehab but will make referrals. Patient is refusing to give choices for STR stating I'm not going to a shelter. CM instructed patient she will not be going to the LTC floor and will be going to rehab department which is separate from LTC. Patient continue to refuse to give choices. CM made referral's to [facility] and [facility]. CM will continue to follow patient for discharge needs.
--- NOTE | 2020-04-25 15:52 | HO.PM.IMPN ---
Subjective Subjective Date of Service: 04/25/20 Interval History: Patient eating request this morning, denies shortness of breath cough no other acute issues overnight has been mostly in bed, prior to coming to hospital patient was ambulating. ROS General no headache, no dizziness, no fever, chills. CVS no chest pain, no palpitation. Respiratory no cough, no shortness of breath Gastrointestinal no nausea, no vomiting, no abdominal pain, no diarrhea Physical Exam Vital Signs: Vital Signs: Last Vital Signs Temp 98 F 04/25/20 15:24 Pulse 80 04/25/20 15:24 Resp 18 04/25/20 15:24 BP 139/53 L 04/25/20 15:24 Pulse Ox 96 04/25/20 15:24 Body Mass Index 32.3 General awake, alert, and cooperative. No change in examination today Neck is supple no JVD. CVS regular rate rhythm, Respiratory lungs clear to auscultation, no respiratory distress, no wheeze, no rhonchi. Gastrointestinal abdomen soft, nontender, bowel sounds audible, no guarding , no rigidity. Extremities right great toe dry gangrene, no drainage, no redness and no swelling on dorsum of foot Neuro nonfocal, legally blind Skin no rash Objective Data Current Medications Generic Name Dose Route Start Last Admin Trade Name Freq PRN Reason Stop Dose Admin Acetaminophen 650 mg 04/14/20 23:06 04/25/20 10:37 Acetaminophen 325 Mg Tablet PO 650 mg Q6H PRN Administration Pain, Mild (Pain Scale 1-3) Albuterol/Ipratropium 3 ml 04/23/20 23:39 Albuterol/Iprat 2.5/0.5mg 3 Ml Ampul.Neb INHALE RQ4H PRN Shortness of Breath/Wheezing Amlodipine Besylate 10 mg 04/23/20 09:00 04/25/20 09:25 Amlodipine Besylate 5 Mg Tablet PO 10 mg DAILY RAUL Administration Protocol Ascorbic Acid 250 mg 04/23/20 09:00 04/25/20 09:24 Ascorbic Acid 250 Mg Tablet PO 250 mg BID RAUL Administration Aspirin 325 mg 04/22/20 09:00 04/25/20 09:24 Aspirin 325 Mg Tablet PO 325 mg DAILY RAUL Administration Atorvastatin Calcium 80 mg 04/22/20 21:00 04/24/20 20:47 Atorvastatin Calcium 80 Mg Tablet PO 80 mg BEDTIME RAUL Administration Atropine Sulfate 1 drop 04/15/20 09:00 04/25/20 14:00 Atropine Sulfate 1 % Ophth Jacki 2 Ml Bottle EYE-LEFT Not Given TID [facility] Calcium Carbonate/Cholecalciferol 500 mg 04/17/20 13:30 04/25/20 09:24 Calcium + Vitamin D 250 Mg Tablet PO 500 mg DAILY [facility] Administration Cyanocobalamin 1,000 mcg 04/23/20 14:15 04/23/20 16:45 Cyanocobalamin (Vitamin B-12) 1,000 Mcg/Ml Vial IM 05/14/20 09:01 1,000 mcg Q7D@0900 [facility]1983 Administration Docusate Sodium 100 mg 04/15/20 09:00 04/25/20 09:24 Docusate Sodium 100 Mg Capsule PO 100 mg BID [facility]1983 Administration Ferrous Sulfate 324 mg 04/23/20 08:00 04/25/20 09:25 Ferrous Sulfate 324 Mg Tablet. PO 324 mg BIDWM [facility]1983 Administration Guaifenesin/Dextromethorphan 10 ml 04/22/20 09:30 04/25/20 13:58 Guaifenesin Dm 100/10/5 Ml 5 Ml Syrup PO 10 ml Q6H [facility]1983 Administration Heparin Sodium (Porcine) 5,000 unit 04/24/20 12:45 04/25/20 13:59 Heparin Sodium,Porcine 5,000 Unit/Ml Vial SUBCUT 5,000 unit Q12H [facility]1983 Administration Hydroxyzine HCl 25 mg 04/23/20 23:39 Hydroxyzine Hcl 25 Mg Tablet PO Q8H PRN anxiety/restlessness Ceftriaxone Sodium 1 gm/ 50 mls @ 100 mls/hr 04/20/20 17:00 04/24/20 19:24 Sodium Chloride IV Infused Q24H [facility] Infusion Metronidazole 500 mg in 100 mls @ 100 mls/hr 04/21/20 16:00 04/25/20 15:43 Flagyl IV 100 mls/hr Q8H [facility] Administration Insulin Human Lispro 0 unit 04/15/20 07:30 04/25/20 12:05 Insulin Lispro 100 Unit/Ml 3 Ml Vial SUBCUT Not Given QIDACHS [facility] Protocol Lidocaine 2 patch 04/15/20 09:15 04/25/20 09:24 Lidocaine 4 % Patch Adh..Patch TRANSDERMA 2 patch DAILY [facility] Administration Protocol Metoprolol Tartrate 50 mg 04/23/20 21:00 04/25/20 09:24 Metoprolol Tartrate 25 Mg Tablet PO 50 mg BID [facility] Administration Protocol Omeprazole 20 mg 04/22/20 06:30 04/25/20 05:23 Omeprazole 20 Mg Capsule.Dr PO 20 mg DAILY@0630 [facility] Administration Pharmacy Consult 1 each 04/14/20 23:02 Consult Rx Vancomycin Dosing MISCELLANE DAILY PRN Consult order Prednisolone Acetate 1 drop 04/15/20 09:00 04/25/20 10:31 Prednisolone Acetate 1 % Oph Susp 5 Ml Drpbtl EYE-LEFT 1 drop DAILY [facility] Administration Senna 17.2 mg 04/14/20 23:06 Sennosides 8.6 Mg Tablet PO BEDTIME PRN Constipation Sodium Bicarbonate 650 mg 04/25/20 21:00 Sodium Bicarbonate 650 Mg Tablet PO BID RAUL Sodium Chloride 3 ml 04/15/20 00:00 04/25/20 15:43 0.9 % Sodium Chloride Flush 3 Ml Syringe IVFLUSH 3 ml QSHIFT [facility] Administration Timolol Maleate 1 drop 04/15/20 09:00 04/25/20 10:30 Timolol Maleate Xe 0.25 % Gel 5 Ml Drbtl EYE-RIGHT 1 drop DAILY RAUL Administration Labs CBC & Chem 7: 04/23/20 06:01 04/24/20 05:18 Microbiology Microbiology Results: Microbiology 04/21/20 05:05 Blood - Venous Blood Culture - Preliminary No growth after 48 hours. 04/21/20 04:59 Blood - Venous Blood Culture - Preliminary No growth after 48 hours. 04/18/20 00:12 Blood - Venous Blood Culture - Final No growth after 5 days. 04/18/20 00:16 Blood - Venous Blood Culture - Final No growth after 5 days. 04/14/20 21:49 Blood - Venous Blood Culture - Final No growth after 5 days. 04/14/20 21:49 Blood - Venous Blood Culture - Final No growth after 5 days. 04/14/20 Unknown Urine clean catch - Clean Catch Midstream Urine Culture - Final Klebsiella pneumoniae Assessment and Plan (1) Osteomyelitis of great toe of right foot: Status: Acute (2) UTI due to Klebsiella species: Problem details: She is on antibiotics Some fever may be due to diabetic foot infection She seems to have no rash or reaction to antibiotics Status: Acute (3) Anemia: Status: Acute (4) Preoperative cardiovascular examination: Status: Acute (5) Essential hypertension: Status: Acute (6) PAD (peripheral artery disease): Status: Acute (7) Acute kidney injury: Status: Acute (8) Diabetic foot infection: Problem details: continue antibiotics,plan per Dr Blood Status: Acute Assessment and Plan: 75-year-old female with a past medical history of hypertension, hyperlipidemia, diabetes, legally blind, lives alone presented to the hospital with a chief complaint of right lower extremity pain. Diabetic right foot infection/right toe gangrene/peripheral arterial disease No recurrent fevers, WBC elevated around 13,000, on IV ceftriaxone and Flagyl day 5 for right toe infection being followed by Dr. Blood , since patient has a positive stress test and require a cardiac catheterization, he recommend to proceed with fem to feml bypass left to right after patient undergoes cardiac catheterization since he feels if patient undergo amputation without revascularization it will most likely be nonhealing and end up as a BKA, therefore discuss case with Dr. Jinny Stein she recommend ertapenem 0.5 mg for 6 weeks, will place a Santos catheter for IV antibiotic to prevent her arm for future dialysis catheter spoke with Dr. Patterson from Cardiology there is no plan for cardiac catheterization with ongoing renal failure . Lexiscan showed moderate size inferior wall ischemia EF 41% with stress and 58 with rest and echocardiogram Informed patient about long-term antibiotics since surgery cannot be performed due to reasons mentioned above. Acute hypoxic respiratory failure Likely related to atelectasis/or pneumonia right lower lobe, patient is on IV ceftriaxone, encourage incentive spirometry out of bed to chair continue supportive care. Diarrhea Resolved, C diff negative was likely related to antibiotics. UTI urine culture grew Klebsiella pneumonia continue IV ceftriaxone day 6/7 Uncontrolled hypertension blood pressure better controlled with increased dose of Norvasc 10 mg and metoprolol 50 mg b.i.d. follow blood pressure closely KRYSTYNA on CKD 3B. History of chronic kidney disease with baseline creatinine around 2 most consistent with diabetic nephropathy, creatinine remains around 2.[address] Carey He feels likely its new baseline versus delayed recovery he recommend to continue soda bicarb and wants to protect nondominant arm for future AVF. Acute on chronic anemia, noted to have significant drop in hematocrit therefore received 2 units of packed RBC hematocrit improved, patient received 1 dose of IV Ferrlecit And now on iron supplement and vitamin-C. B12 is low at 159/ folate is normal patient started on im B12 supplement. stool guaiac came back negative, iron studies consistent with mild iron deficiency, patient seen by Dr. Diego he recommended Pepcid with possibility of gastritis with chronic use of aspirin And recommend outpatient colonoscopy. Patient also evaluated by Dr. Monroy and she agrees with iron replacement. Hyperkalemia. Resolved with kayexalate Back pain. Chronic with no acute exacerbation continue lidocaine and oxycodone Diabetes Noted to have low blood sugars today therefore will discontinue glyburide, follow blood sugar closely and continue ADA diet and insulin sliding scale Legally Blind continue Home eye drops. Competency eval obtained since patient was refusing medications and was resistant to treatment, patient currently more cooperative taking medication, seen by Dr. Nolasco patient is competent to make medical decision, case discussed with psychiatrist. Disposition patient evaluated by Physical therapy and they are recommending short-term rehab to maximize function and safety in the home DVT prophylaxis will place patient on subQ heparin and DC mechanical device since stool guaiac negative.
[2020-04-25 16:05] LABS: Glucose, Whole Blood 240 mg/dL (60-115)
[2020-04-25] MEDS: cefTRIAXone sodium 1 GM in 0.9 % Sodium Chloride 50 ML IV (17:45)
[2020-04-25 21:05] LABS: Glucose, Whole Blood 227 mg/dL (60-115)
[2020-04-25] MEDS: Atorvastatin Calcium 80 MG TABLET PO (21:11)
[2020-04-25] MEDS: Sodium Bicarbonate 650 MG TABLET PO (21:11)
--- NOTE | 2020-04-25 22:57 | PM.EVENT ---
Event Note Date of Service: 04/25/20 Event Note: Elevated troponin: Patient denied pain. EKG nonischemic. Forwarded EKG to Dr Martin, recommended no further intervention/therapy.
--- NOTE | 2020-04-25 23:16 | PC.NURSE ---
2100 poc 227; Patient refusing insulin coverage, educated patient on importance of medication. Hospitalist made aware patient refused insulin.
[2020-04-26] VITALS: BP 152/70; PULSE 89; RESP 16; TEMP 37.3; O2SAT 91
[2020-04-26] MEDS: Acetaminophen 325 MG TABLET 650 MG PO (01:25)
[2020-04-26] MEDS: hydrOXYzine HCL 25 MG TABLET PO (01:25)
[2020-04-26 03:59] VITALS: BP 158/72; PULSE 88; RESP 16; TEMP 37.2; O2SAT 92
[2020-04-26] MEDS: guaiFENesin DM 100/10/5 ML 5 ML SYRUP 10 ML PO ×4 (04:33→20:11)
[2020-04-26] MEDS: Omeprazole 20 MG CAPSULE.DR PO (06:09)
[2020-04-26 06:51] LABS: MANUAL DIFF FLAG NO
[2020-04-26 06:56] LABS: Basophils Absolute Auto 0.1 X10*3/uL (0.0-0.2); Basophils Percent Auto 0.4 % (0-2); Eosinophils Absolute Auto 0.5 X10*3/uL (0.0-0.4); Eosinophils Percent Auto 4.2 % (0-4); Hematocrit 28.8 % (37-47); Imm Gran Abs Auto 0.11 X10*3/uL (0.00-0.03); Lymphocytes Absolute Auto 1.8 X10*3/uL (1.2-4.9); Lymphocytes Percent Auto 16.3 % (20-40); Mean Corpuscular HGB Conc 31.3 g/dl (31.0-35.0); Mean Corpuscular Hemoglobin 28.3 pg (27.0-33.0); Mean Corpuscular Volume 90.6 fL (80-98); Mean Platelet Volume 9.9 fL (9.4-12.3); Monocytes Absolute Auto 1.1 X10*3/uL (0.1-1.2); Monocytes Percent Auto 9.5 % (2-11); Neutrophils Absolute Auto 7.8 X10*3/uL (2.0-8.3); Neutrophils Percent Auto 68.6 % (45-73); Platelet Count 380 X10*3/uL (160-400); Red Blood Count 3.18 X10*6/uL (4.20-5.50); Red Cell Distribution Width 13.3 % (11.0-16.0); White Blood Count 11.3 X10*3/uL (4.8-10.8)
[2020-04-26 07:28] LABS: Anion Gap 13 (12-20); Blood Urea Nitrogen 44 mg/dL (9-16); Calcium 7.7 mg/dL (8.4-10.2); Carbon Dioxide 18 mmol/L (22-29); Chloride 113 mmol/L (96-108); Creatinine Clr Calc Pharmacy 18.8; Estimated Glomerular Filt Rate 16; Glucose Random 211 mg/dL (60-115); Potassium 4.5 mmol/L (3.3-5.1); Sodium 139 mmol/L (135-145)
[2020-04-26 08:00] VITALS: BP 176/81; PULSE 71; RESP 18; TEMP 36.3; O2SAT 97
[2020-04-26 08:12] LABS: Glucose, Whole Blood 171 mg/dL (60-115)
[2020-04-26] MEDS: Ferrous Sulfate 324 MG TABLET.DR PO ×2 (08:34→17:27)
[2020-04-26] MEDS: Sodium Bicarbonate 650 MG TABLET PO ×2 (08:34→20:11)
[2020-04-26] MEDS: amLODIPine Besylate 5 MG TABLET 10 MG PO (08:34)
[2020-04-26] MEDS: Docusate Sodium 100 MG CAPSULE PO ×2 (08:34→20:11)
[2020-04-26] MEDS: Metoprolol Tartrate 25 MG TABLET 50 MG PO ×2 (08:34→20:11)
[2020-04-26] MEDS: Aspirin 325 MG TABLET PO (08:34)
[2020-04-26] MEDS: Ascorbic Acid 250 MG TABLET PO ×2 (08:35→20:12)
[2020-04-26] MEDS: Calcium + Vitamin D 250 MG TABLET 500 MG PO (08:35)
[2020-04-26] MEDS: 0.9 % Sodium Chloride Flush 3 ML SYRINGE IVFLUSH ×2 (08:35→17:13)
[2020-04-26] MEDS: metroNIDAZOLE/NS 500 MG/100 ML PIGGYBACK 100 MG IV ×2 (08:35→17:14)
[2020-04-26] MEDS: Lidocaine 4 % Patch ADH..PATCH 2 PATCH TRANSDERMA (08:36)
[2020-04-26] MEDS: prednisoLONE Acetate 1 % Oph Susp 5 ML DRPBTL 1 DROP EYE-LEFT (08:58)
[2020-04-26] MEDS: Atropine Sulfate 1 % Ophth Sol 2 ML BOTTLE 1 DROP EYE-LEFT ×3 (08:58→20:12)
[2020-04-26 11:22] LABS: Glucose, Whole Blood 202 mg/dL (60-115)
[2020-04-26 11:34] VITALS: BP 110/60; PULSE 75; RESP 20; TEMP 36.8; O2SAT 99
[2020-04-26] MEDS: Heparin Sodium,Porcine 5,000 UNIT/ML VIAL 5000 UNIT SUBCUT (13:57)
--- NOTE | 2020-04-26 14:21 | MHC.CM.PN ---
Patient will need STR upon discharge, [facility] denied and [facility] is interested. Patient will get PICC line placement for IV ABT. Patient will need BLS transport. CM will continue to follow for discharge needs.
[2020-04-26 15:31] VITALS: BP 155/65; PULSE 82; RESP 19; TEMP 36.5; O2SAT 93
[2020-04-26 16:08] LABS: Glucose, Whole Blood 195 mg/dL (60-115)
--- NOTE | 2020-04-26 16:19 | HO.PM.IMPN ---
Subjective Subjective Date of Service: 04/26/20 Interval History: Patient feels tired did not have a good night sleep but unable to explain why, denies pain, no nausea vomiting eating breakfast, no acute issues overnight. ROS General no headache, no dizziness, no fever, chills. CVS no chest pain, no palpitation. Respiratory no cough, no shortness of breath Gastrointestinal no nausea, no vomiting, no abdominal pain, no diarrhea Physical Exam Vital Signs: Vital Signs: Last Vital Signs Temp 97.7 F 04/26/20 15:31 Pulse 82 04/26/20 15:31 Resp 19 04/26/20 15:31 BP 155/65 H 04/26/20 15:31 Pulse Ox 93 04/26/20 15:31 Body Mass Index 32.3 General awake, alert, in no acute distress Neck is supple no JVD. CVS regular rate rhythm, Respiratory lungs clear to auscultation, no respiratory distress, no wheeze, no rhonchi. Gastrointestinal abdomen soft, nontender, bowel sounds audible, no guarding , no rigidity. Extremities right great toe dry gangrene, no drainage, no redness and no swelling on dorsum of foot Neuro nonfocal, legally blind Skin no rash Objective Data Current Medications Generic Name Dose Route Start Last Admin Trade Name Freq PRN Reason Stop Dose Admin Acetaminophen 650 mg 04/14/20 23:06 04/26/20 01:25 Acetaminophen 325 Mg Tablet PO 650 mg Q6H PRN Administration Pain, Mild (Pain Scale 1-3) Albuterol/Ipratropium 3 ml 04/23/20 23:39 Albuterol/Iprat 2.5/0.5mg 3 Ml Ampul.Neb INHALE RQ4H PRN Shortness of Breath/Wheezing Amlodipine Besylate 10 mg 04/23/20 09:00 04/26/20 08:34 Amlodipine Besylate 5 Mg Tablet PO 10 mg DAILY RAUL Administration Protocol Ascorbic Acid 250 mg 04/23/20 09:00 04/26/20 08:35 Ascorbic Acid 250 Mg Tablet PO 250 mg BID RAUL Administration Aspirin 325 mg 04/22/20 09:00 04/26/20 08:34 Aspirin 325 Mg Tablet PO 325 mg DAILY RAUL Administration Atorvastatin Calcium 80 mg 04/22/20 21:00 04/25/20 21:11 Atorvastatin Calcium 80 Mg Tablet PO 80 mg BEDTIME RAUL Administration Atropine Sulfate 1 drop 04/15/20 09:00 04/26/20 13:57 Atropine Sulfate 1 % Ophth Jacki 2 Ml Bottle EYE-LEFT 1 drop TID RAUL Administration Calcium Carbonate/Cholecalciferol 500 mg 04/17/20 13:30 04/26/20 08:35 Calcium + Vitamin D 250 Mg Tablet PO 500 mg DAILY RAUL Administration Cyanocobalamin 1,000 mcg 04/23/20 14:15 04/23/20 16:45 Cyanocobalamin (Vitamin B-12) 1,000 Mcg/Ml Vial IM 05/14/20 09:01 1,000 mcg Q7D@0900 RAUL Administration Docusate Sodium 100 mg 04/15/20 09:00 04/26/20 08:34 Docusate Sodium 100 Mg Capsule PO 100 mg BID RAUL Administration Ferrous Sulfate 324 mg 04/23/20 08:00 04/26/20 08:34 Ferrous Sulfate 324 Mg Tablet. PO 324 mg BIDWM RAUL Administration Guaifenesin/Dextromethorphan 10 ml 04/22/20 09:30 04/26/20 13:57 Guaifenesin Dm 100/10/5 Ml 5 Ml Syrup PO 10 ml Q6H RAUL Administration Heparin Sodium (Porcine) 5,000 unit 04/24/20 12:45 04/26/20 13:57 Heparin Sodium,Porcine 5,000 Unit/Ml Vial SUBCUT 5,000 unit Q12H RAUL Administration Hydroxyzine HCl 25 mg 04/23/20 23:39 04/26/20 01:25 Hydroxyzine Hcl 25 Mg Tablet PO 25 mg Q8H PRN Administration anxiety/restlessness Ceftriaxone Sodium 1 gm/ 50 mls @ 100 mls/hr 04/20/20 17:00 04/25/20 18:46 Sodium Chloride IV Infused Q24H RAUL Infusion Metronidazole 500 mg in 100 mls @ 100 mls/hr 04/21/20 16:00 04/26/20 12:30 Flagyl IV Infused Q8H [facility] Infusion Insulin Human Lispro 0 unit 04/15/20 07:30 04/26/20 12:30 Insulin Lispro 100 Unit/Ml 3 Ml Vial SUBCUT Not Given QIDACHS [facility] Protocol Lidocaine 2 patch 04/15/20 09:15 04/26/20 08:36 Lidocaine 4 % Patch Adh..Patch TRANSDERMA 1 patch DAILY RAUL Administration Protocol Metoprolol Tartrate 50 mg 04/23/20 21:00 04/26/20 08:34 Metoprolol Tartrate 25 Mg Tablet PO 50 mg BID [facility] Administration Protocol Omeprazole 20 mg 04/22/20 06:30 04/26/20 06:09 Omeprazole 20 Mg Capsule.Dr PO 20 mg DAILY@0630 [facility] Administration Pharmacy Consult 1 each 04/14/20 23:02 Consult Rx Vancomycin Dosing MISCELLANE DAILY PRN Consult order Prednisolone Acetate 1 drop 04/15/20 09:00 04/26/20 08:58 Prednisolone Acetate 1 % Oph Susp 5 Ml Drpbtl EYE-LEFT 1 drop DAILY [facility] Administration Senna 17.2 mg 04/14/20 23:06 Sennosides 8.6 Mg Tablet PO BEDTIME PRN Constipation Sodium Bicarbonate 650 mg 04/25/20 21:00 04/26/20 08:34 Sodium Bicarbonate 650 Mg Tablet PO 650 mg BID RAUL Administration Sodium Chloride 3 ml 04/15/20 00:00 04/26/20 08:35 0.9 % Sodium Chloride Flush 3 Ml Syringe IVFLUSH 3 ml QSHIFT [facility] Administration Timolol Maleate 1 drop 04/15/20 09:00 04/26/20 08:58 Timolol Maleate Xe 0.25 % Gel 5 Ml Drbtl EYE-RIGHT 1 drop DAILY RAUL Administration Labs CBC & Chem 7: 04/26/20 05:45 04/26/20 05:45 Microbiology Microbiology Results: Microbiology 04/21/20 05:05 Blood - Venous Blood Culture - Final No growth after 5 days. 04/21/20 04:59 Blood - Venous Blood Culture - Final No growth after 5 days. 04/18/20 00:12 Blood - Venous Blood Culture - Final No growth after 5 days. 04/18/20 00:16 Blood - Venous Blood Culture - Final No growth after 5 days. 04/14/20 21:49 Blood - Venous Blood Culture - Final No growth after 5 days. 04/14/20 21:49 Blood - Venous Blood Culture - Final No growth after 5 days. 04/14/20 Unknown Urine clean catch - Clean Catch Midstream Urine Culture - Final Klebsiella pneumoniae Assessment and Plan (1) Osteomyelitis of great toe of right foot: Status: Acute (2) Diabetic foot infection: Problem details: continue antibiotics,plan per Dr Blood Status: Acute (3) Diarrhea: Status: Acute (4) UTI due to Klebsiella species: Problem details: She is on antibiotics Some fever may be due to diabetic foot infection She seems to have no rash or reaction to antibiotics Status: Acute (5) Anemia: Status: Acute (6) Essential hypertension: Status: Acute (7) PAD (peripheral artery disease): Status: Acute (8) Acute kidney injury: Status: Acute (9) Coronary artery disease: Status: Acute Assessment and Plan: 75-year-old female with a past medical history of hypertension, hyperlipidemia, diabetes, legally blind, lives alone presented to the hospital with a chief complaint of right lower extremity pain. Diabetic right foot infection/right toe gangrene/peripheral arterial disease No recurrent fevers, WBC trended down,on IV ceftriaxone and Flagyl day 7 for right toe infection will change to ertapenem 0.5 mg upon discharge for 6 weeks. being followed by Dr. Blood , since patient has a positive stress test and will require a cardiac catheterization, he recommend to proceed with fem to fem bypass left to right after patient undergoes cardiac catheterization since he feels if patient undergo amputation without revascularization it will most likely be nonhealing and end up as a BKA, therefore discuss case with Dr. Jinny Stein she recommend ertapenem 0.5 mg for 6 weeks, Santos catheter will be placed tomorrow for IV antibiotic to prevent her arm for future dialysis catheter, will keep her NPO spoke with Dr. Patterson from Cardiology there is no plan for cardiac catheterization with ongoing renal failure . Lexiscan showed moderate size inferior wall ischemia EF 41% with stress and 58 with rest and echocardiogram Informed patient about long-term antibiotics since surgery cannot be performed due to reasons mentioned above. Coronary artery disease diagnosed by Lexiscan stress test continue aspirin Lopressor amlodipine and statin, patient is adamant that she wants to take 325 mg of aspirin therefore continue the same However patient declined Plavix that was recommended by Dr. Blood for peripheral artery disease. Acute hypoxic respiratory failure Likely related to atelectasis/ pneumonia right lower lobe, patient is on IV ceftriaxone, encourage incentive spirometry out of bed to chair continue supportive care, cough medication. Diarrhea Resolved, C diff negative was likely related to antibiotics. UTI urine culture grew Klebsiella pneumonia continue IV ceftriaxone day 7 Uncontrolled hypertension blood pressure better controlled with increased dose of Norvasc 10 mg and metoprolol 50 mg b.i.d. follow blood pressure closely still with intermittent high blood pressure KRYSTYNA on CKD 3B. History of chronic kidney disease with baseline creatinine around 2 most consistent with diabetic nephropathy, creatinine remains around 2.[address] Carey He feels likely its new baseline versus delayed recovery he recommend to continue soda bicarb and wants to protect nondominant arm for future AVF. Acute on chronic anemia, noted to have significant drop in hematocrit therefore received 2 units of packed RBC hematocrit improved, patient received 1 dose of IV Ferrlecit And now on iron supplement and vitamin-C. B12 is low at 159/ folate is normal patient started on im B12 supplement for 7 days will need weekly B12 shots for 4 weeks and then Q monthly. stool guaiac came back negative, iron studies consistent with mild iron deficiency, patient seen by Dr. Diego he recommended ppi with possibility of gastritis with chronic use of aspirin And recommend outpatient colonoscopy. Patient also evaluated by Dr. Monroy and she agrees with iron replacement. Hyperkalemia. Resolved with kayexalate Back pain. Chronic with no acute exacerbation continue lidocaine and oxycodone Diabetes Noted to have low blood sugars therefore discontinue glyburide, blood sugar trending up will resume glyburide, continue ADA diet and insulin sliding scale Legally Blind continue Home eye drops. Competency eval obtained since patient was refusing medications and was resistant to treatment, patient currently more cooperative taking medication, seen by Dr. Nolasco patient is competent to make medical decision, case discussed with psychiatrist. Disposition patient evaluated by Physical therapy and they are recommending short-term rehab to maximize function and safety in the home DVT prophylaxis will place patient on subQ heparin and DC mechanical device since stool guaiac negative.
[2020-04-26] MEDS: Cyanocobalamin (Vitamin B-12) 1,000 MCG/ML VIAL 1000 MCG IM (17:14)
[2020-04-26] MEDS: cefTRIAXone sodium 1 GM in 0.9 % Sodium Chloride 50 ML IV (18:11)
[2020-04-26 19:14] VITALS: BP 151/65; PULSE 86; RESP 19; TEMP 36.3; O2SAT 93
--- NOTE | 2020-04-26 19:42 | P.PNNP_ITS ---
Subjective Subjective Date of Service: 04/26/20 Interval history: Seen and examiend. Events noted Physical Exam Vital Signs: Vital Signs: Last Vital Signs Temp 97.4 F 04/26/20 19:14 Pulse 86 04/26/20 19:14 Resp 19 04/26/20 19:14 BP 151/65 H 04/26/20 19:14 Pulse Ox 93 04/26/20 19:14 Body Mass Index 32.3 Const: General: cooperative, no acute distress and awake Orientation/consciousness: oriented to person and oriented to place Li mitations: no limitations HENMT: Head: Yes normal to inspection, Yes normocephalic and Yes atraumatic Ears: external ears normal General nose exam: Normal external nose present Face and sinus: Yes normal facial exam Mouth: Normal oral and palatal mucosa present Throat: Yes posterior oropharynx normal Eyes: General: appearance normal, both eyes and all related structures Periorbital: periorbital findings normal Eyelids: Yes eyelids normal Conjunctivae: conjunctivae normal Sclerae: sclerae normal Corneas: corneas normal Pupils: Equal, round and reactive pupils present Neck: Neck: Yes full ROM, Yes no lymphadenopathy, Yes no meningeal signs, Yes trachea midline, Yes supple and Yes no JVD Carotids: no bruits Chest: Chest palpation & inspection: normal inspection of the chest and normal palpation of entire chest wall Resp: Effort & Inspection: normal respiratory effort and able to speak in complete sentences Auscultation: clear to auscultation bilaterally Cardio: Rate: regular rate and tachycardic Rhythm: regular rhythm Heart sounds: S1 normal heart sound present, S2 normal heart sound present and no murmurs Bruits: no carotid bruits Peripheral pulses: other (Unable to plapate DP, PT bilaterally) GI: Inspection: Yes normal to inspection Palpation (GI): Soft to palpation, nontender, no guarding, not rigid and No hepatosplenomegaly present : General: Yes no CVA tenderness Back/Spine/Pelvis: Back: no CVA tenderness Cervical Spine: normal cervical lordosis Thoracic/Lumbar Spine: thoracic and lumbar spine normal to inspection and paraspinal muscle tenderness bilaterally in the mid lumbar and in the lower lumbar Skin: Other: Improving erythema of the Right foot and less tenderness to palpation. No drainage. General skin exam: no rashes or lesions noted Lesions: no lesions Rashes: other (Right great toe infection) Wounds: no wounds Hair: normal Neuro: General: oriented to person, oriented to place and no meningeal signs Cranial nerves: Yes CN's II-XII intact bilaterally and Yes Equal, round and reactive pupils present Cognition (Neuro): normal cognition Speech: Abnormal speech present Motor exam (neuro): 5/5 motor strength present throughout Extrem: Other: great toe black tip,mild proximal cellulitis General: Yes normal to inspection, Yes full ROM, Yes no clubbing, cyanosis or edema, No clubbing, No cyanosis and No edema Psych: Appearance: well kempt Mental Status: mental status grossly normal Speech and movement: Normal speech and movement present Affect: normal affect Attitude: cooperative Thought process: Normal thought process p resent Thought content: Normal thought content present Objective Data Labs CBC & Chem 7: 04/26/20 05:45 04/26/20 05:45 Labs: Laboratory Results - last 24 hr 04/25/20 04/26/20 04/26/20 21:00 05:45 05:45 WBC 11.3 H RBC 3.18 L Hgb 9.0 L Hct 28.8 L MCV 90.6 MCH 28.3 MCHC 31.3 RDW 13.3 Plt Count 380 D MPV 9.9 Immature Gran % (Auto) 1.0 H Neut % (Auto) 68.6 Lymph % (Auto) 16.3 L [place] % (Auto) 9.5 Eos % (Auto) 4.2 H Baso % (Auto) 0.4 Lymph # (Auto) 1.8 [place] # (Auto) 1.1 Eos # (Auto) 0.5 H Baso # (Auto) 0.1 Abs Immat Gran (auto) 0.11 H Absolute Neuts (auto) 7.8 Absolute Nucleated RBC 0.000 Nucleated RBC % (auto) 0.0 Sodium 139 Potassium 4.5 Chloride 113 H Carbon Dioxide 18 L Anion Gap 13 BUN 44 H Creatinine 2.88 H Estim Creat Clear Calc 18.8 Estimated GFR 16 POC Glucose 227 H Random Glucose 211 H D Calcium 7.7 L 04/26/20 04/26/20 04/26/20 08:06 11:19 16:05 WBC RBC Hgb Hct MCV MCH MCHC RDW Plt Count MPV Immature Gran % (Auto) Neut % (Auto) Lymph % (Auto) [place] % (Auto) Eos % (Auto) Baso % (Auto) Lymph # (Auto) [place] # (Auto) Eos # (Auto) Baso # (Auto) Abs Immat Gran (auto) Absolute Neuts (auto) Absolute Nucleated RBC Nucleated RBC % (auto) Sodium Potassium Chloride Carbon Dioxide Anion Gap BUN Creatinine Estim Creat Clear Calc Estimated GFR POC Glucose 171 H 202 H 195 H Random Glucose Calcium Microbiology Microbiology Results: Microbiology 04/21/20 05:05 Blood - Venous Blood Culture - Final No growth after 5 days. 04/21/20 04:59 Blood - Venous Blood Culture - Final No growth after 5 days. 04/18/20 00:12 Blood - Venous Blood Culture - Final No growth after 5 days. 04/18/20 00:16 Blood - Venous Blood Culture - Final No growth after 5 days. 04/14/20 21:49 Blood - Venous Blood Culture - Final No growth after 5 days. 04/14/20 21:49 Blood - Venous Blood Culture - Final No growth after 5 days. 04/14/20 Unknown Urine clean catch - Clean Catch Midstream Urine Culture - Final Klebsiella pneumoniae Assessment & Plan Assessment and plan (1) Osteomyelitis of great toe of right foot: Status: Acute (2) Acute kidney injury: Status: Acute (3) Diabetic foot infection: Problem details: continue antibiotics,plan per Dr Blood Status: Acute (4) Essential hypertension: Status: Acute (5) PAD (peripheral artery disease): Status: Acute Assessment and Plan: . 75-year-old female with a past medical history of hypertension, hyperlipidemia, diabetes, legally blind, lives alone presented to the hospital with a chief complaint of right lower extremity pain w/u c/w osteo and isxchemic leg s/p angio and now being eval for vasc leg bypass 1. KRYSTYNA: Scr stuck at 2.8 and ques new bsl vs delayed furhter recovery 2. 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 Anemia: epo and Fe def 4. PVDz 5. HTN: doing betterf 6. Blind 7. NAGMA REC: cont procrit and PO Fe; cont po NaHCO3; track UOP/renal fumc; encourage her to take meds and xfusion as needed; PO Fe ( avoid IV Fe given active infection); protect non-dominant arm for future AVF; ques vascular bypass later this week appears to be cancelled and to get IV ABx via herrera Time Spent With Patient Time: Total time spent is greater than 50% in coordination of care (as documented) at patient's floor/unit and/or counseling patient:
[2020-04-26 19:43] LABS: Glucose, Whole Blood 231 mg/dL (60-115)
[2020-04-26] MEDS: Insulin Lispro 100 UNIT/ML 3 ML VIAL SUBCUT (20:10)
[2020-04-26] MEDS: Atorvastatin Calcium 80 MG TABLET PO (20:11)
[2020-04-27] VITALS (9 sets, daily range): BP systolic 155–190; BP diastolic 66–81; PULSE 75–89; RESP 16–22; TEMP 36.1–37.2; O2SAT 90–94
[2020-04-27] MEDS: Heparin Sodium,Porcine 5,000 UNIT/ML VIAL 5000 UNIT SUBCUT ×2 (00:08→23:01)
[2020-04-27] MEDS: metroNIDAZOLE/NS 500 MG/100 ML PIGGYBACK 100 MG IV ×4 (00:10→22:59)
[2020-04-27] MEDS: 0.9 % Sodium Chloride Flush 3 ML SYRINGE IVFLUSH ×4 (00:32→23:03)
[2020-04-27] MEDS: guaiFENesin DM 100/10/5 ML 5 ML SYRUP 10 ML PO ×3 (03:12→19:44)
[2020-04-27] MEDS: Metoprolol Tartrate 25 MG TABLET PO (04:47)
[2020-04-27 06:38] LABS: INTERNATIONAL NORM RATIO 1.2 (0.9-1.1); Prothrombin Time 14.2 SEC (10.8-13.0)
[2020-04-27 06:41] LABS: Partial Thromboplastin Time 35.3 SEC (24.1-38.0)
[2020-04-27 07:21] LABS: Glucose, Whole Blood 187 mg/dL (60-115)
[2020-04-27] MEDS: Metoprolol Tartrate 25 MG TABLET 50 MG PO ×2 (09:08→19:44)
[2020-04-27] MEDS: amLODIPine Besylate 5 MG TABLET 10 MG PO (09:08)
--- NOTE | 2020-04-27 11:15 | IR_ITS ---
PROCEDURE: IR TUNNELED CENTRAL VENOUS CATHETER PLACEMENT REFERRING PROVIDER: Jerad Lopes PROCEDURAL PERSONNEL: Attending Physician(s): Mc Samuels MD Resident Physician(s): None Advanced Practice Provider(s): None PREPROCEDURE DIAGNOSIS: Osteomyelitis POSTPROCEDURE DIAGNOSIS: Same INDICATION: Long-term antibiotic therapy ADDITIONAL CLINICAL HISTORY: None COMPLICATIONS: No immediate complications. IR/IR cvc insert peripheral IMPRESSION: Insertion of [id number] power injectable single-lumen tunneled Proline catheter, with tip in the expected location of the cavoatrial junction. PLAN: The catheter may be used immediately. PROCEDURE SUMMARY: - Venous access with ultrasound guidance - Tunneled central venous catheter insertion with fluoroscopic guidance - Additional procedure(s): None PROCEDURE DETAILS: PREPROCEDURE: Consent: Informed consent for the procedure including risks, benefits and alternatives was obtained and time out was performed prior to the procedure. Preparation (MIPS): The site was prepared and draped using all elements of maximal sterile barrier technique including sterile gloves, sterile gown, cap, mask, large sterile sheet, sterile ultrasound probe cover, hand hygiene and cutaneous antisepsis with 2% chlorhexidine. Medical reason for site preparation exception (MIPS): Not applicable ANESTHESIA/SEDATION: Level of anesthesia/sedation: Moderate sedation (conscious sedation) Anesthesia/sedation administered by: Independent trained observer under attending supervision with continuous monitoring of the patient?s level of consciousness and physiologic status Total intra-service sedation time (minutes): 20 Sedation Medications 1. Versed: 0.5 mg IV 2. Fentanyl: 25 mcg IV ACCESS: Local anesthesia was administered. The vessel was sonographically evaluated and determined to be patent. Real time ultrasound was used to visualize needle entry into the vessel and a permanent image was stored. Vein accessed: Internal jugular vein Access technique: Micropuncture set with 21 gauge needle Access attempts: 1 Following access the guidewire was removed in its entirety, visually inspected and determined to be intact. CATHETER PLACEMENT: An incision was made near the venous access site and the catheter was tunneled subcutaneously to the venous access site and trimmed to appropriate length. The catheter was advanced via a peel-away sheath into the vein under fluoroscopic guidance. Catheter tip location was fluoroscopically verified and a permanent image was stored. Catheter placed: Proline (Medcomp) Catheter size (Kosovan): 5 Catheter trimmed length (cm): 30 Catheter flush: Heparin (100 units/mL) CLOSURE: A sterile dressing was applied. Access site closure technique: Tissue adhesive Catheter securement technique: Stat-Lock CONTRAST: Contrast agent: None Contrast volume (mL): 0 RADIATION DOSE: Fluoroscopy time (minutes): 1.2 Kerma area product (uGy-m2): 127 ADDITIONAL DETAILS: Additional description of procedure: None Equipment details: None Specimens removed: None Estimated blood loss (mL): Less than 10 Standardized report: [email or web address] ATTESTATION: Signer name: Mc Samuels I attest that I was present for the entire procedure. I reviewed the stored images and agree with the report as written.
[2020-04-27 11:43] LABS: Glucose, Whole Blood 157 mg/dL (60-115)
[2020-04-27] MEDS: prednisoLONE Acetate 1 % Oph Susp 5 ML DRPBTL 1 DROP EYE-LEFT (11:46)
[2020-04-27] MEDS: Atropine Sulfate 1 % Ophth Sol 2 ML BOTTLE 1 DROP EYE-LEFT ×2 (11:46→19:45)
[2020-04-27] MEDS: Lidocaine HCl 1 % MPF 5 ML VIAL 10 ML SUBCUT (11:47)
[2020-04-27] MEDS: Calcium + Vitamin D 250 MG TABLET 500 MG PO (13:24)
[2020-04-27] MEDS: Sodium Bicarbonate 650 MG TABLET PO ×2 (13:25→19:44)
[2020-04-27] MEDS: Docusate Sodium 100 MG CAPSULE PO ×2 (13:25→19:44)
[2020-04-27] MEDS: Ferrous Sulfate 324 MG TABLET.DR PO (13:25)
[2020-04-27] MEDS: Aspirin 325 MG TABLET PO (13:25)
[2020-04-27] MEDS: Cyanocobalamin (Vitamin B-12) 1,000 MCG/ML VIAL 1000 MCG IM (13:25)
[2020-04-27] MEDS: Ascorbic Acid 250 MG TABLET PO ×2 (13:26→19:44)
--- NOTE | 2020-04-27 13:55 | HO.PM.IMPN ---
Subjective Subjective Date of Service: 04/27/20 Interval History: no pain Cardiovascular Cardiovascular: Reports no additional cardiovascular complaints Gastrointestinal Gastrointestinal: Reports no additional gastrointestinal complaints Physical Exam Vital Signs: Vital Signs: Last Vital Signs Temp 97 F 04/27/20 11:40 Pulse 81 04/27/20 11:40 Resp 20 04/27/20 11:40 BP 169/77 H 04/27/20 11:40 Pulse Ox 94 04/27/20 11:40 Body Mass Index 32.3 General: AO X 3, no acute distress Resp: CTA bilateral CVS: S1,S2,RRR GI: soft, non tender, non distended Neuro: motor grossly intact Psych: appropriate affect Objective Data Current Medications Generic Name Dose Route Start Last Admin Trade Name Freq PRN Reason Stop Dose Admin Acetaminophen 650 mg 04/14/20 23:06 04/26/20 01:25 Acetaminophen 325 Mg Tablet PO 650 mg Q6H PRN Administration Pain, Mild (Pain Scale 1-3) Albuterol/Ipratropium 3 ml 04/23/20 23:39 Albuterol/Iprat 2.5/0.5mg 3 Ml Ampul.Neb INHALE RQ4H PRN Shortness of Breath/Wheezing Amlodipine Besylate 10 mg 04/23/20 09:00 04/27/20 09:08 Amlodipine Besylate 5 Mg Tablet PO 10 mg DAILY RAUL Administration Protocol Ascorbic Acid 250 mg 04/23/20 09:00 04/27/20 13:26 Ascorbic Acid 250 Mg Tablet PO 250 mg BID RAUL Administration Aspirin 325 mg 04/22/20 09:00 04/27/20 13:25 Aspirin 325 Mg Tablet PO 325 mg DAILY RAUL Administration Atorvastatin Calcium 80 mg 04/22/20 21:00 04/26/20 20:11 Atorvastatin Calcium 80 Mg Tablet PO 80 mg BEDTIME RAUL Administration Atropine Sulfate 1 drop 04/15/20 09:00 04/27/20 11:46 Atropine Sulfate 1 % Ophth Jacki 2 Ml Bottle EYE-LEFT 1 drop TID RAUL Administration Calcium Carbonate/Cholecalciferol 500 mg 04/17/20 13:30 04/27/20 13:24 Calcium + Vitamin D 250 Mg Tablet PO 500 mg DAILY RAUL Administration Cyanocobalamin 1,000 mcg 04/26/20 16:45 04/27/20 13:25 Cyanocobalamin (Vitamin B-12) 1,000 Mcg/Ml Vial IM 04/29/20 09:01 1,000 mcg DAILY RAUL Administration Docusate Sodium 100 mg 04/15/20 09:00 04/27/20 13:25 Docusate Sodium 100 Mg Capsule PO 100 mg BID [facility] Administration Ferrous Sulfate 324 mg 04/23/20 08:00 04/27/20 13:25 Ferrous Sulfate 324 Mg Tablet. PO 324 mg BIDWM RAUL Administration Glyburide 2.5 mg 04/27/20 09:00 04/27/20 13:26 Glyburide 2.5 Mg Tablet PO Not Given DAILY [facility] Guaifenesin/Dextromethorphan 10 ml 04/22/20 09:30 04/27/20 13:24 Guaifenesin Dm 100/10/5 Ml 5 Ml Syrup PO 10 ml Q6H [facility] Administration Heparin Sodium (Porcine) 5,000 unit 04/24/20 12:45 04/27/20 00:08 Heparin Sodium,Porcine 5,000 Unit/Ml Vial SUBCUT 5,000 unit Q12H [facility] Administration Hydroxyzine HCl 25 mg 04/23/20 23:39 04/26/20 01:25 Hydroxyzine Hcl 25 Mg Tablet PO 25 mg Q8H PRN Administration anxiety/restlessness Ceftriaxone Sodium 1 gm/ 50 mls @ 100 mls/hr 04/20/20 17:00 04/26/20 19:40 Sodium Chloride IV Infused Q24H [facility] Infusion Metronidazole 500 mg in 100 mls @ 100 mls/hr 04/21/20 16:00 04/27/20 11:45 Flagyl IV 100 mls/hr Q8H [facility] Administration Insulin Human Lispro 0 unit 04/15/20 07:30 04/27/20 13:49 Insulin Lispro 100 Unit/Ml 3 Ml Vial SUBCUT Not Given QIDACHS [facility] Protocol Lidocaine 2 patch 04/15/20 09:15 04/27/20 13:26 Lidocaine 4 % Patch Adh..Patch TRANSDERMA Not Given DAILY [facility] Protocol Metoprolol Tartrate 50 mg 04/23/20 21:00 04/27/20 09:08 Metoprolol Tartrate 25 Mg Tablet PO 50 mg BID [facility] Administration Protocol Omeprazole 20 mg 04/22/20 06:30 04/27/20 06:06 Omeprazole 20 Mg Capsule. PO Not Given DAILY@0630 [facility] Pharmacy Consult 1 each 04/14/20 23:02 Consult Rx Vancomycin Dosing MISCELLANE DAILY PRN Consult order Prednisolone Acetate 1 drop 04/15/20 09:00 04/27/20 11:46 Prednisolone Acetate 1 % Oph Susp 5 Ml Drpbtl EYE-LEFT 1 drop DAILY RAUL Administration Senna 17.2 mg 04/14/20 23:06 Sennosides 8.6 Mg Tablet PO BEDTIME PRN Constipation Sodium Bicarbonate 650 mg 04/25/20 21:00 04/27/20 13:25 Sodium Bicarbonate 650 Mg Tablet PO 650 mg BID RAUL Administration Sodium Chloride 3 ml 04/15/20 00:00 04/27/20 11:45 0.9 % Sodium Chloride Flush 3 Ml Syringe IVFLUSH 3 ml QSHIFT RAUL Administration Timolol Maleate 1 drop 04/15/20 09:00 04/27/20 11:46 Timolol Maleate Xe 0.25 % Gel 5 Ml Drbtl EYE-RIGHT 1 drop DAILY RAUL Administration Labs CBC & Chem 7: 04/26/20 05:45 04/26/20 05:45 Microbiology Microbiology Results: Microbiology 04/21/20 05:05 Blood - Venous Blood Culture - Final No growth after 5 days. 04/21/20 04:59 Blood - Venous Blood Culture - Final No growth after 5 days. 04/18/20 00:12 Blood - Venous Blood Culture - Final No growth after 5 days. 04/18/20 00:16 Blood - Venous Blood Culture - Final No growth after 5 days. 04/14/20 21:49 Blood - Venous Blood Culture - Final No growth after 5 days. 04/14/20 21:49 Blood - Venous Blood Culture - Final No growth after 5 days. 04/14/20 Unknown Urine clean catch - Clean Catch Midstream Urine Culture - Final Klebsiella pneumoniae Assessment and Plan (1) Osteomyelitis of great toe of right foot: Status: Acute (2) Diabetic foot infection: Problem details: continue antibiotics,plan per Dr Blood Status: Acute (3) Diarrhea: Status: Acute (4) UTI due to Klebsiella species: Problem details: She is on antibiotics Some fever may be due to diabetic foot infection She seems to have no rash or reaction to antibiotics Status: Acute (5) Anemia: Status: Acute (6) Essential hypertension: Status: Acute (7) PAD (peripheral artery disease): Status: Acute (8) Acute kidney injury: Status: Acute (9) Coronary artery disease: Status: Acute Assessment and Plan: 75-year-old female with a past medical history of hypertension, hyperlipidemia, diabetes, legally blind, lives alone presented to the hospital with a chief complaint of right lower extremity pain. Diabetic right foot infection/right toe gangrene/peripheral arterial disease No recurrent fevers, WBC trended down,on IV ceftriaxone and Flagyl day 8 for right toe infection will change to ertapenem 0.5 mg upon discharge for 6 weeks. - may be issue with [facility] however, will see if can be changed being followed by Dr. Blood , since patient has a positive stress test and will require a cardiac catheterization, he recommend to proceed with fem to fem bypass left to right after patient undergoes cardiac catheterization since he feels if patient undergo amputation without revascularization it will most likely be nonhealing and end up as a BKA, therefore discuss case with Dr. Jinny Stein she recommend ertapenem 0.5 mg for 6 weeks, Santos catheter placed today for IV antibiotic to prevent her arm for future dialysis catheter per Cardiology there is no plan for cardiac catheterization with ongoing renal failure . Lexiscan showed moderate size inferior wall ischemia EF 41% with stress and 58 with rest and echocardiogram Informed patient about long-term antibiotics since surgery cannot be performed due to reasons mentioned above. Coronary artery disease diagnosed by Lexiscan stress test continue aspirin Lopressor amlodipine and statin, patient is adamant that she wants to take 325 mg of aspirin therefore continue the same However patient declined Plavix that was recommended by Dr. Blood for peripheral artery disease. Acute hypoxic respiratory failure Likely related to atelectasis/ pneumonia right lower lobe, patient is on IV ceftriaxone, encourage incentive spirometry out of bed to chair continue supportive care, cough medication. Diarrhea Resolved, C diff negative was likely related to antibiotics. UTI urine culture grew Klebsiella pneumonia continue IV ceftriaxone day 8 Uncontrolled hypertension blood pressure better controlled with increased dose of Norvasc 10 mg and metoprolol 50 mg b.i.d. follow blood pressure closely still with intermittent high blood pressure KRYSTYNA on CKD 3B. History of chronic kidney disease with baseline creatinine around 2 most consistent with diabetic nephropathy, creatinine remains around 2.[address] Carey He feels likely its new baseline versus delayed recovery he recommend to continue soda bicarb and wants to protect nondominant arm for future AVF. Acute on chronic anemia, noted to have significant drop in hematocrit therefore received 2 units of packed RBC hematocrit improved, patient received 1 dose of IV Ferrlecit And now on iron supplement and vitamin-C. B12 is low at 159/ folate is normal patient started on im B12 supplement for 7 days will need weekly B12 shots for 4 weeks and then Q monthly. stool guaiac came back negative, iron studies consistent with mild iron deficiency, patient seen by Dr. Diego he recommended ppi with possibility of gastritis with chronic use of aspirin And recommend outpatient colonoscopy. Patient also evaluated by Dr. Monroy and she agrees with iron replacement. Hyperkalemia. Resolved with kayexalate Back pain. Chronic with no acute exacerbation continue lidocaine and oxycodone Diabetes gylburide Legally Blind continue Home eye drops. Competency eval obtained since patient was refusing medications and was resistant to treatment, patient currently more cooperative taking medication, seen by Dr. Nolasco patient is competent to make medical decision, case discussed with psychiatrist. Disposition patient evaluated by Physical therapy and they are recommending short-term rehab to maximize function and safety in the home DVT prophylaxis will place patient on subQ heparin and DC mechanical device since stool guaiac negative.
--- NOTE | 2020-04-27 15:01 | MHC.CM.PN ---
CM met with patient to explain [facility] are not willing to take her r/t she does not meet acute rehab criteria. Patient choices are [facility], [facility], [facility] and [facility]. Referrals made via allscripts. CM will continue to follow for discharge needs.
--- NOTE | 2020-04-27 15:22 | P.PNNP_ITS ---
Subjective Subjective Date of Service: 04/27/20 Interval history: Seen and examined. Events noted Physical Exam Vital Signs: Vital Signs: Last Vital Signs Temp 97 F 04/27/20 11:40 Pulse 81 04/27/20 11:40 Resp 20 04/27/20 11:40 BP 169/77 H 04/27/20 11:40 Pulse Ox 94 04/27/20 11:40 Body Mass Index 32.3 Const: General: cooperative, no acute distress and awake Orientation/consciousness: oriented to person and oriented to place Lara itations: no limitations HENMT: Head: Yes normal to inspection, Yes normocephalic and Yes atraumatic Ears: external ears normal General nose exam: Normal external nose present Face and sinus: Yes normal facial exam Mouth: Normal oral and palatal mucosa present Throat: Yes posterior oropharynx normal Eyes: General: appearance normal, both eyes and all related structures Periorbital: periorbital findings normal Eyelids: Yes eyelids normal Conjunctivae: conjunctivae normal Sclerae: sclerae normal Corneas: corneas normal Pupils: Equal, round and reactive pupils present Neck: Neck: Yes full ROM, Yes no lymphadenopathy, Yes no meningeal signs, Yes trachea midline, Yes supple and Yes no JVD Carotids: no bruits Chest: Chest palpation & inspection: normal inspection of the chest and normal palpation of entire chest wall Resp: Effort & Inspection: normal respiratory effort and able to speak in complete sentences Auscultation: clear to auscultation bilaterally Cardio: Rate: regular rate and tachycardic Rhythm: regular rhythm Heart sounds: S1 normal heart sound present, S2 normal heart sound present and no murmurs Bruits: no carotid bruits Peripheral pulses: other (Unable to plapate DP, PT bilaterally) GI: Inspection: Yes normal to inspection Palpation (GI): Soft to palpation, nontender, no guarding, not rigid and No hepatosplenomegaly present : General: Yes no CVA tenderness Back/Spine/Pelvis: Back: no CVA tenderness Cervical Spine: normal cervical lordosis Thoracic/Lumbar Spine: thoracic and lumbar spine normal to inspection and paraspinal muscle tenderness bilaterally in the mid lumbar and in the lower lumbar Skin: Other: Improving erythema of the Right foot and less tenderness to palpation. No drainage. General skin exam: no rashes or lesions noted Lesions: no lesions Rashes: other (Right great toe infection) Wounds: no wounds Hair: normal Neuro: General: oriented to person, oriented to place and no meningeal signs Cranial nerves: Yes CN's II-XII intact bilaterally and Yes Equal, round and reactive pupils present Cognition (Neuro): normal cognition Speech: Abnormal speech present Motor exam (neuro): 5/5 motor strength present throughout Extrem: Other: great toe black tip,mild proximal cellulitis General: Yes normal to inspection, Yes full ROM, Yes no clubbing, cyanosis or edema, No clubbing, No cyanosis and No edema Psych: Appearance: well kempt Mental Status: mental status grossly normal Speech and movement: Normal speech and movement present Affect: normal affect Attitude: cooperative Thought process: Normal thought process pr esent Thought content: Normal thought content present Objective Data Labs CBC & Chem 7: 04/26/20 05:45 04/26/20 05:45 Labs: Laboratory Results - last 24 hr 04/26/20 04/26/20 04/27/20 16:05 19:37 05:31 PT 14.2 H INR 1.2 H APTT 35.3 POC Glucose 195 H 231 H 04/27/20 04/27/20 07:04 11:39 PT INR APTT POC Glucose 187 H 157 H Microbiology Microbiology Results: Microbiology 04/21/20 05:05 Blood - Venous Blood Culture - Final No growth after 5 days. 04/21/20 04:59 Blood - Venous Blood Culture - Final No growth after 5 days. 04/18/20 00:12 Blood - Venous Blood Culture - Final No growth after 5 days. 04/18/20 00:16 Blood - Venous Blood Culture - Final No growth after 5 days. 04/14/20 21:49 Blood - Venous Blood Culture - Final No growth after 5 days. 04/14/20 21:49 Blood - Venous Blood Culture - Final No growth after 5 days. 04/14/20 Unknown Urine clean catch - Clean Catch Midstream Urine Culture - Final Klebsiella pneumoniae Assessment & Plan Assessment and plan (1) Osteomyelitis of great toe of right foot: Status: Acute (2) Acute kidney injury: Status: Acute (3) Diabetic foot infection: Problem details: continue antibiotics,plan per Dr Blood Status: Acute (4) Essential hypertension: Status: Acute (5) PAD (peripheral artery disease): Status: Acute Assessment and Plan: . 75-year-old female with a past medical history of hypertension, hyperlipidemia, diabetes, legally blind, lives alone presented to the hospital with a chief complaint of right lower extremity pain w/u c/w osteo and isxchemic leg s/p angio and was being eval for vasc leg bypass but decision was NOT to do this 1. KRYSTYNA: Scr stuck at 2.8 and ques new bsl vs delayed furhter recovery 2. 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 Anemia: epo and Fe def 4. PVDz 5. HTN: remains labile 6. Blind 7. NAGMA 8. AMS: ques bsl dementia and at her bsl REC: cont procrit and PO Fe; cont po NaHCO3; track UOP/renal fumc; encourage her to take meds and xfusion as needed; PO Fe ( avoid IV Fe given active infection); protect non-dominant arm for future AVF; IV ABx via herrera Time Spent With Patient Time: Total time spent is greater than 50% in coordination of care (as documented) at patient's floor/unit and/or counseling patient:
[2020-04-27 16:29] LABS: Glucose, Whole Blood 273 mg/dL (60-115)
[2020-04-27] MEDS: cefTRIAXone sodium 1 GM in 0.9 % Sodium Chloride 50 ML IV (16:29)
[2020-04-27] MEDS: Atorvastatin Calcium 80 MG TABLET PO (19:45)
[2020-04-27] MEDS: Acetaminophen 325 MG TABLET 650 MG PO (19:55)
[2020-04-27 19:56] LABS: Glucose, Whole Blood 253 mg/dL (60-115)
[2020-04-27] MEDS: hydrOXYzine HCL 25 MG TABLET PO (19:56)
[2020-04-28 04:00] VITALS: BP 158/72; PULSE 80; RESP 18; TEMP 36.9; O2SAT 98
[2020-04-28] MEDS: Omeprazole 20 MG CAPSULE.DR PO (04:45)
[2020-04-28] MEDS: guaiFENesin DM 100/10/5 ML 5 ML SYRUP 10 ML PO (04:45)
[2020-04-28 06:08] LABS: MANUAL DIFF FLAG NO
[2020-04-28 06:19] LABS: Basophils Absolute Auto 0.1 X10*3/uL (0.0-0.2); Basophils Percent Auto 0.5 % (0-2); Eosinophils Absolute Auto 0.4 X10*3/uL (0.0-0.4); Hematocrit 28.5 % (37-47); Hemoglobin 8.7 g/dl (12.0-16.0); Imm Gran Abs Auto 0.13 X10*3/uL (0.00-0.03); Imm Gran Pct Auto 1.2 % (0.0-0.4); Lymphocytes Absolute Auto 1.8 X10*3/uL (1.2-4.9); Lymphocytes Percent Auto 16.4 % (20-40); Mean Corpuscular HGB Conc 30.5 g/dl (31.0-35.0); Mean Corpuscular Hemoglobin 27.7 pg (27.0-33.0); Mean Corpuscular Volume 90.8 fL (80-98); Mean Platelet Volume 9.6 fL (9.4-12.3); Monocytes Percent Auto 8.7 % (2-11); Neutrophils Absolute Auto 7.6 X10*3/uL (2.0-8.3); Neutrophils Percent Auto 69.2 % (45-73); Platelet Count 439 X10*3/uL (160-400); Red Blood Count 3.14 X10*6/uL (4.20-5.50); Red Cell Distribution Width 13.8 % (11.0-16.0)
[2020-04-28 06:58] LABS: Anion Gap 14 (12-20); Blood Urea Nitrogen 44 mg/dL (9-16); Carbon Dioxide 17 mmol/L (22-29); Chloride 114 mmol/L (96-108); Creatinine Clr Calc Pharmacy 17.2; Estimated Glomerular Filt Rate 14; Glucose Fasting 200 mg/dL (60-99); Potassium 4.2 mmol/L (3.3-5.1); Sodium 141 mmol/L (135-145)
[2020-04-28 07:52] VITALS: BP 179/82; PULSE 91; RESP 22; TEMP 36.9; O2SAT 91
[2020-04-28] MEDS: 0.9 % Sodium Chloride Flush 3 ML SYRINGE IVFLUSH (08:02)
[2020-04-28] MEDS: prednisoLONE Acetate 1 % Oph Susp 5 ML DRPBTL 1 DROP EYE-LEFT (08:05)
[2020-04-28] MEDS: Atropine Sulfate 1 % Ophth Sol 2 ML BOTTLE 1 DROP EYE-LEFT (08:05)
[2020-04-28] MEDS: metroNIDAZOLE/NS 500 MG/100 ML PIGGYBACK 100 MG IV (08:12)
[2020-04-28] MEDS: Acetaminophen 325 MG TABLET 650 MG PO (08:14)
[2020-04-28] MEDS: hydrOXYzine HCL 25 MG TABLET PO (08:15)
[2020-04-28] MEDS: Ferrous Sulfate 324 MG TABLET.DR PO (08:15)
[2020-04-28] MEDS: amLODIPine Besylate 5 MG TABLET 10 MG PO (08:16)
[2020-04-28] MEDS: Ascorbic Acid 250 MG TABLET PO (08:17)
[2020-04-28] MEDS: Calcium + Vitamin D 250 MG TABLET 500 MG PO (08:17)
[2020-04-28] MEDS: Cyanocobalamin (Vitamin B-12) 1,000 MCG/ML VIAL 1000 MCG IM (08:17)
[2020-04-28] MEDS: Metoprolol Tartrate 25 MG TABLET 50 MG PO (08:18)
[2020-04-28] MEDS: Sodium Bicarbonate 650 MG TABLET PO (08:19)
[2020-04-28] MEDS: glyBURIDE 2.5 MG TABLET PO (08:20)
[2020-04-28] MEDS: Heparin Sodium,Porcine Flush 50 UNITS, 0.9 % Sodium Chloride Flush 5 ML IVFLUSH (08:27)
[2020-04-28 10:00] VITALS: BP 179/82; PULSE 91; O2SAT 91
--- NOTE | 2020-04-28 10:55 | PM.DS ---
DS: Providers Provider Date of Service: 04/28/20 Date of admission: 04/14/20 23:05 Primary care physician: Unknown Physician Consults: 04/14/20 23:02 Consult to Nephrology Routine Consulting Provider: Jayjay Bentley Reason for consultation: balta/hyperkalemia 04/15/20 00:01 Consult to Infectious Diseases Routine Consulting Provider: Rosina Stein Reason for consultation: DM foot infection/osteomyelitis 04/15/20 02:43 Consult to Urology Routine Consulting Provider: Da De La Torre Reason for consultation: uti; thick urnary bladder 04/15/20 09:12 Consult to General Surgery Routine Consulting Provider: Maldonado Byers Reason for consultation: Right great toe ulcer, ? debridement Has provider been notified: No 04/15/20 12:26 Consult to Vascular Surgery Routine Consulting Provider: Mateo Blood Reason for consultation: diabetic foot ulcer vs vascular ulcer Has provider been notified: No 04/18/20 14:23 Consult to Gastroenterology Routine Consulting Provider: Billie Chahal Reason for consultation: anemia 04/20/20 07:51 Consult to Cardiology Routine Consulting Provider: Moise Martin Reason for consultation: pre op eval for open fem-fem bypass Has provider been notified: No 04/21/20 11:32 Consult to Hematology / Oncology Routine Consulting Provider: Chrissy Monroy Reason for consultation: anemia Has provider been notified: Yes 04/21/20 14:49 Consult to Psychiatry Routine Consulting Provider: Cece Morley Reason for consultation: competency Has provider been notified: No DS: Diagnosis Discharge Diagnosis (1) Osteomyelitis of great toe of right foot: Status: Acute (2) UTI due to Klebsiella species: Status: Acute Problem details: She is on antibiotics Some fever may be due to diabetic foot infection She seems to have no rash or reaction to antibiotics (3) Coronary artery disease: Status: Acute (4) Diarrhea: Status: Acute (5) PAD (peripheral artery disease): Status: Acute (6) Acute kidney injury: Status: Acute DS: Medications Discharge Medications Home Medications: Home Medications Medication Instructions Recorded Confirmed aspirin 81 mg PO DAILY 04/15/20 04/15/20 atropine 1 drp BID 04/15/20 04/15/20 prednisolone acetate 1 drp DAILY 04/15/20 04/15/20 timolol maleate 1 drp OPHTHALMIC-RIGHT DAILY 04/15/20 04/15/20 Previous Rx's Medication Instructions Recorded amlodipine 10 mg PO DAILY #30 tab 04/28/20 ascorbic acid (vitamin C) 250 mg PO BID #30 tab 04/28/20 atorvastatin 80 mg PO BEDTIME #30 tab 04/28/20 ertapenem [Invanz] 0.5 g IV Q24H #34 ea 04/28/20 ferrous sulfate 324 mg PO BIDWM #30 tab 04/28/20 glyburide 2.5 mg PO DAILY #30 tab 04/28/20 metoprolol tartrate 50 mg PO BID #60 tab 04/28/20 omeprazole 20 mg PO DAILY@0630 #30 cap 04/28/20 sodium bicarbonate 650 mg PO BID #60 tab 04/28/20 DS: Summary Hospital Course Hospital Course: patient was admitted for Diabetic right foot infection/right toe gangrene/peripheral arterial disease. she was treated with ceftriaxone and Flagyl for 8 days during inpatient stay. At discharge she will be treated with ertapenem 0.5 g IV daily for total course of 6 weeks via herrera catheter. End date 05/31/2020. Patient was evaluated by vascular surgery determine patient will require fem to fem bypass [id number] prior to any amputation. This is put on hold due to positive stress test. Patient should eventually need cardiac catheterization. However, given acute on chronic kidney injury this was postponed. Patient was evaluated by Nephrology who felt this was likely consistent with diabetic nephropathy and patient is at new baseline around 2.8. Therefore, plan is to conservatively treat with IV antibiotics although there is high likelihood of failure. Ultimately patient would need amputation, but this will need to be done after both cardiac catheterization and lower extremity revascularization. Patient is to follow up with Cardiology as outpatient to set up cardiac catheterization. In the meantime she will continue with IV antibiotics at [facility]. Patient was noted to be B12 deficient and was started on B12 IM and should continue orally. Time Spent with Patient Time attestation: Total time spent providing and/or coordinating discharge services: Discharge coordination time: Greater than 30 minutes Physical Exam Vital Signs: Vital Signs: Last Vital Signs Temp 98.5 F 04/28/20 07:52 Pulse 91 04/28/20 10:00 Resp 22 H 04/28/20 07:52 BP 179/82 H 04/28/20 10:00 Pulse Ox 91 L 04/28/20 10:00 Body Mass Index 32.3 General: AO X 3, no acute distress Resp: CTA bilateral CVS: S1,S2,RRR GI: soft, non tender, non distended Neuro: motor grossly intact Psych: appropriate affect DS: Data Data Completed and Pending Labs on day of discharge: Laboratory Results - last 24 hr 04/27/20 04/27/20 04/27/20 11:39 16:25 19:49 WBC RBC Hgb Hct MCV MCH MCHC RDW Plt Count MPV Immature Gran % (Auto) Neut % (Auto) Lymph % (Auto) [place] % (Auto) Eos % (Auto) Baso % (Auto) Lymph # (Auto) [place] # (Auto) Eos # (Auto) Baso # (Auto) Abs Immat Gran (auto) Absolute Neuts (auto) Absolute Nucleated RBC Nucleated RBC % (auto) Sodium Potassium Chloride Carbon Dioxide Anion Gap BUN Creatinine Estim Creat Clear Calc Estimated GFR POC Glucose 157 H 273 H 253 H Fasting Glucose Calcium 04/28/20 04/28/20 05:24 05:24 WBC 11.0 H RBC 3.14 L Hgb 8.7 L Hct 28.5 L MCV 90.8 MCH 27.7 MCHC 30.5 L RDW 13.8 Plt Count 439 H MPV 9.6 Immature Gran % (Auto) 1.2 H Neut % (Auto) 69.2 Lymph % (Auto) 16.4 L [place] % (Auto) 8.7 Eos % (Auto) 4.0 Baso % (Auto) 0.5 Lymph # (Auto) 1.8 [place] # (Auto) 1.0 Eos # (Auto) 0.4 Baso # (Auto) 0.1 Abs Immat Gran (auto) 0.13 H Absolute Neuts (auto) 7.6 Absolute Nucleated RBC 0.000 Nucleated RBC % (auto) 0.0 Sodium 141 Potassium 4.2 Chloride 114 H Carbon Dioxide 17 L Anion Gap 14 BUN 44 H Creatinine 3.16 H Estim Creat Clear Calc 17.2 Estimated GFR 14 POC Glucose Fasting Glucose 200 H Calcium 8.0 L Discharge Plan Discharge Patient Disposition: Xfer SNF Referrals: Physician,Unknown [Primary Care Provider] - Discharge Medications: New ferrous sulfate 324 mg (65 mg iron) Tablet,Delayed Release (Dr/Ec) 324 mg PO BIDWM Qty: 30 RF: 0 amlodipine 5 mg Tablet 10 mg PO DAILY Qty: 30 RF: 0 atorvastatin 80 mg Tablet 80 mg PO BEDTIME Qty: 30 RF: 0 metoprolol tartrate 25 mg Tablet 50 mg PO BID Qty: 60 RF: 0 omeprazole 20 mg Capsule,Delayed Release(Dr/Ec) 20 mg PO DAILY@0630 Qty: 30 RF: 0 sodium bicarbonate 650 mg Tablet 650 mg PO BID Qty: 60 RF: 0 glyburide 2.5 mg Tablet 2.5 mg PO DAILY Qty: 30 RF: 0 ascorbic acid (vitamin C) 250 mg Tablet 250 mg PO BID Qty: 30 RF: 0 ertapenem [Invanz] 1 gram recon soln 0.5 g IV Q24H Qty: 34 RF: 0 Continued prednisolone acetate 1 % drops,suspension 1 drp DAILY RF: 0 timolol maleate 0.25 % drops 1 drp ophthalmic-Right DAILY RF: 0 aspirin 81 mg Tablet 81 mg PO DAILY RF: 0 atropine 1 % drops 1 drp BID RF: 0 Discontinued glyburide 5 mg tablet 1 tab PO BID RF: 0 Discharge Orders: Discharge Order (Routine); Ordered 04/28/20 Ordered By: Jerad Lopes Activity on Discharge: As tolerated Stand Alone Forms: Patient Portal Discharge page Care Plan Goals: recovery Health Concerns: DFU, PVD, CAD Plan of Treatment: total 6 week ertapenem, follow up vascular and cardiology
[2020-04-28 11:29] LABS: Glucose, Whole Blood 197 mg/dL (60-115)
[2020-04-28 11:29] LABS: Glucose, Whole Blood 211 mg/dL (60-115)
--- NOTE | 2020-04-28 11:48 | MHC.CM.PN ---
Patient will be discharging today to [place] in [facility] at 2pm via BLS transport. Patient and nurse are aware.
[2020-04-28 11:52] LABS: COVID-19 Test Negative (Negative); IDNOW Serial# 9DD0AD1C
[2020-04-28 12:00] VITALS: BP 152/79; PULSE 81; RESP 18; TEMP 36.9; O2SAT 93
[2020-04-28 13:43] VITALS: BP 152/79; PULSE 81; O2SAT 93
== END 2020-04-28 14:49 | disposition skilled nursing facility (03) | DRG 628 ==
LOC: HO.ED 22:57 → HO.EDOVER 23:14 → HO.IMC 23:18
PROVIDERS: Family Medicine; Hospitalist; Internal Medicine; Internal Medicine Nephrology; Nurse Practitioner Acute Care; Radiology Diagnostic Radiology; Surgery Vascular Surgery; Admitting Provider Hospitalist; Emergency Provider Emergency Medicine Emergency Medical Services; PCP Internal Medicine; Visit Provider Internal Medicine
PROC: 047J3Z1 Dilation of Left External Iliac Artery using Drug-Coated Balloon, Percutaneous Approach (ICD-10-PCS; principal; 2020-04-19 09:00)
DX: E11.69 Type 2 diabetes mellitus with other specified complication (principal); J96.01 Acute respiratory failure with hypoxia; A48.0 Gas gangrene; N39.0 Urinary tract infection, site not specified; M86.9 Osteomyelitis, unspecified; L03.115 Cellulitis of right lower limb; E87.2 Acidosis; E11.52 Type 2 diabetes mellitus with diabetic peripheral angiopathy with gangrene; N17.9 Acute kidney failure, unspecified; E87.5 Hyperkalemia; E11.621 Type 2 diabetes mellitus with foot ulcer; L97.514 Non-pressure chronic ulcer of other part of right foot with necrosis of bone; D63.1 Anemia in chronic kidney disease; E11.22 Type 2 diabetes mellitus with diabetic chronic kidney disease; E78.5 Hyperlipidemia, unspecified; N25.0 Renal osteodystrophy; N18.4 Chronic kidney disease, stage 4 (severe); B96.1 Klebsiella pneumoniae [K. pneumoniae] as the cause of diseases classified elsewhere; H54.8 Legal blindness, as defined in USA; Z91.14 Patient's other noncompliance with medication regimen; G89.29 Other chronic pain; Z20.822 Contact with and (suspected) exposure to COVID-19; Z87.891 Personal history of nicotine dependence; Z79.82 Long term (current) use of aspirin; Z79.899 Other long term (current) drug therapy
CPT/HCPCS: 36415; 36573; 37220; 71045; 73620; 73700; 74176; 75625; 76937; 78452; 80048; 80053; 80061; 81001; 81003; 82272; 82607; 82728; 82746; 82784; 82947; 83010; 83540; 83605; 83615; 83690; 83735; 83883; 83970; 84132; 85025; 85045; 85610; 85652; 85730; 86334; 86850; 86900; 86923; 87040; 87086; 87088; 87186; 87324; 87449; 87635; 93005; 93017; 93306; 93925; 96361; 96365; 97116; 97162; 97530; 99152; 99153; 99231; 99285; A9500; C1725; C1751; C1769; C1887; C1894; J0280; J0690; J0696; J0885; J1642; J2543; J2785; J2916; J3370; P9016; Q9967

== ENCOUNTER → 2020-05-26 13:48 | Outpatient (BNVA) | payer MEDICARE, MEDICAID, SELFPAY | PROVIDERS: Visit Provider Internal Medicine | DX: M86.9 Osteomyelitis, unspecified (principal) | CPT/HCPCS: 99212 ==

== ENCOUNTER → 2020-06-15 15:57 | Outpatient (BNVA) | payer MEDICARE, MEDICAID, SELFPAY | PROVIDERS: Visit Provider Surgery Vascular Surgery | DX: I73.9 Peripheral vascular disease, unspecified (principal) | CPT/HCPCS: 99212 ==

== ENCOUNTER → 2020-06-26 12:41 | Day surgery (SDC) | payer MEDICARE, MEDICAID, SELFPAY ==
--- NOTE | ~2020-06-26 | IR_ITS ---
EXAMINATION: IR REMOVAL OF RIGHT CRANDALL CLINICAL INFORMATION: No need of Crandall catheter. Long-term antibiotics have been terminated. COMPARISON: Insertion of Crandall catheter 04/27/2020 TECHNIQUE: Following prepping the left anterior chest wall entry point of the Crandall catheter in a sterile fashion, 1% lidocaine was injected at entry point and subcutaneously. A curved hemostat was administered through a small skin incision at the entry point, and blunt dissection was performed around the cuff of the catheter. Within 5 minutes, the cuff was loosened from the underlying scar, and the whole catheter was removed. Complete hemostasis achieved at puncture site. A sterile dressing was applied post-procedure. Patient tolerated procedure extremely well. 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 There was no bleeding seen.
== END ==
PROVIDERS: Visit Provider Radiology Diagnostic Radiology
DX: Z45.2 Encounter for adjustment and management of vascular access device (principal)
CPT/HCPCS: 36589; 36597

== ENCOUNTER 2020-07-06 12:37 | Outpatient (RCR) | payer MEDICARE, MEDICAID, SELFPAY | END 2020-08-04 11:37 | disposition home or self-care (01) | LOC: HO.WCC 12:37 | PROVIDERS: Visit Provider Surgery | DX: E11.621 Type 2 diabetes mellitus with foot ulcer (principal); E11.52 Type 2 diabetes mellitus with diabetic peripheral angiopathy with gangrene; L97.514 Non-pressure chronic ulcer of other part of right foot with necrosis of bone; E11.22 Type 2 diabetes mellitus with diabetic chronic kidney disease; N18.9 Chronic kidney disease, unspecified; H54.7 Unspecified visual loss; Z79.899 Other long term (current) drug therapy | CPT/HCPCS: 99213 ==

== ENCOUNTER 2020-07-27 16:05 | Inpatient (IN) | payer MEDICARE, MEDICAID, SELFPAY ==
--- NOTE | ~2020-07-27 | XR_ITS ---
EXAMINATION: RIGHT FOOT AND KUB. CLINICAL INFORMATION: Right great toe wound. Evaluate for stricture. COMPARISON: None TECHNIQUE: 3 views right foot. 2 views one view KUB.. FINDINGS: KUB: There is moderate stool and gas seen throughout the colon without distention. There is no organomegaly. No radiopaque calculi. There is mild scoliosis of dorsolumbar spine. Right toe: There is ostial lysis involving the medial aspect distal phalanx, right great toe consistent with osteomyelitis. There is moderate soft tissue swelling. The PIP joint space is preserved. The proximal phalanx first digit and the rest of the right foot appears unremarkable. There is vascular calcification seen throughout the right foot. No acute fracture. XR/XR foot RT 2V IMPRESSION: Findings suggestive of osteomyelitis distal phalanx right great toe with moderate soft tissue swelling and edema. No visible acute fracture or dislocation. Moderate constipation. Moderate S-shaped scoliosis of dorsolumbar spine.
--- NOTE | ~2020-07-27 | XR_ITS ---
EXAMINATION: RIGHT FOOT AND KUB. CLINICAL INFORMATION: Right great toe wound. Evaluate for stricture. COMPARISON: None TECHNIQUE: 3 views right foot. 2 views one view KUB.. FINDINGS: KUB: There is moderate stool and gas seen throughout the colon without distention. There is no organomegaly. No radiopaque calculi. There is mild scoliosis of dorsolumbar spine. Right toe: There is ostial lysis involving the medial aspect distal phalanx, right great toe consistent with osteomyelitis. There is moderate soft tissue swelling. The PIP joint space is preserved. The proximal phalanx first digit and the rest of the right foot appears unremarkable. There is vascular calcification seen throughout the right foot. No acute fracture. XR/XR KUB IMPRESSION: Findings suggestive of osteomyelitis distal phalanx right great toe with moderate soft tissue swelling and edema. No visible acute fracture or dislocation. Moderate constipation. Moderate S-shaped scoliosis of dorsolumbar spine.
--- NOTE | ~2020-07-27 | CT_ITS ---
EXAMINATION: CT ABDOMEN AND PELVIS WITHOUT CONTRAST CLINICAL INFORMATION: Vomiting. Constipation. COMPARISON: CT abdomen pelvis 04/15/2020 TECHNIQUE: Multidetector volumetric imaging was performed from the superior aspect of the liver through the pubic symphysis. Sagittal and coronal reformatted images were obtained on the technologist's workstation. This CT examination was performed using dose optimization techniques as appropriate, variously including the following: *Automated exposure control *Adjustment of mA and/or kV according to patient size (this includes techniques or standardized protocols for targeted exams where dose is matched to indication/reason for exam; i.e. extremities or head) *Use of iterative reconstruction technique DLP: 453 mGy-cm FINDINGS: LUNG BASES: The visualized lung bases are unremarkable. LIVER, GALLBLADDER, AND BILIARY TREE: The liver is normal in size, shape, and attenuation. No focal hepatic lesion or biliary ductal dilatation is present. The gallbladder is unremarkable with no evidence of radiopaque gallstones, gallbladder wall thickening, or obvious pericholecystic inflammatory changes. PANCREAS: Unremarkable. SPLEEN: Unremarkable. ADRENAL GLANDS: Unremarkable. KIDNEYS AND URETERS: There are numerous small calcifications in the right and left renal joan that are likely vascular. Could not entirely excluded though tiny nonobstructive renal stones. There is no hydronephrosis. No ureteral stone BLADDER: Unremarkable. GASTROINTESTINAL TRACT: There are numerous diverticula of the sigmoid colon and left colon. There are scattered diverticula in the right colon There is no diverticulitis. There is no bowel wall thickening /edema. There is no bowel obstruction. There is a moderate volume of stool in the colon. The appendix is normal . There are mildly prominent proximal small bowel loops but no transition point. The stomach is normal. There is no hiatal hernia. ABDOMINAL WALL: No significant hernia is appreciated. LYMPH NODES: Normal. VASCULAR: Vascular calcifications throughout the abdomen and the pelvis. There is no aneurysm. PELVIC VISCERA: Uterus is absent. There is no adnexal abnormality. OSSEOUS STRUCTURES: Unremarkable. CT/CT abdomen pelvis wo con IMPRESSION: 1. No acute abnormality the abdomen or pelvis. 2. Marked diverticulosis of the colon. No evidence of diverticulitis. There is no acute abnormality of the bowel.
--- NOTE | ~2020-07-27 | XR_ITS ---
EXAMINATION: XR ABDOMEN KUB CLINICAL INDICATION: Vomiting bile COMPARISON: CT abdomen pelvis 07/27/2020. KUB 07/27/2020 TECHNIQUE: AP view of the abdomen. FINDINGS: Surgical skin clips and a vertical longitudinal line over the left and right groin. Moderate volume of stool in the colon. No abnormally dilated bowel loop. Nonobstructive bowel pattern. No radiopaque urinary calculi. There are vascular calcifications in the right and left renal joan and of the aorta and iliac arteries. XR/XR KUB IMPRESSION: No acute change.
--- NOTE | 2020-07-27 16:17 | ECG_ITS ---
Test Reason : VOMITTING Blood Pressure : / mmHG Vent. Rate : 102 BPM Atrial Rate : 102 BPM P-R Int : 132 ms QRS Dur : 088 ms QT Int : 354 ms P-R-T Axes : 054 -58 062 degrees QTc Int : 461 ms Sinus tachycardia Left anterior fascicular block Abnormal ECG When compared with ECG of 14-APR-2020 23:35, No significant change was found Referred By: Jada Chaves Electronically Signed By:GEOVANNI GAITAN
[2020-07-27 16:23] VITALS: BP 172/72; PULSE 100; RESP 18; TEMP 36.8; O2SAT 98; BMI 23.1
--- NOTE | 2020-07-27 16:34 | ED.EXTPRO ---
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 Concern from staff at wound care who has been taking care of a chronic wound on the right great toe that the wound is worsened with both wet and dry gangrene with a foul odor. Dr Blood from vascular has been involved. She has had some nausea, vomiting x 2 days and feeling generally weak in addition to body aches, chills. Related Data Home Medications Medication Instructions Recorded Confirmed atropine 1 drp OPHTHALMIC-LEFT TID 04/15/20 07/27/20 prednisolone acetate 1 drp OPHTHALMIC-LEFT DAILY 04/15/20 07/27/20 timolol maleate 1 drp OPHTHALMIC-RIGHT DAILY 04/15/20 07/27/20 acetaminophen 1,000 mg PO TID PRN 07/27/20 07/27/20 aspirin 81 mg PO DAILY 07/27/20 07/27/20 bumetanide 0.5 mg PO BID 07/27/20 07/27/20 calcitriol 0.25 mcg PO DAILY 07/27/20 07/27/20 cholecalciferol (vitamin D3) 50 mcg PO DAILY 07/27/20 07/27/20 cyanocobalamin (vitamin B-12) 1,000 mcg IM QMONTH 07/27/20 07/27/20 fexofenadine 60 mg PO DAILY 07/27/20 07/27/20 fluticasone propionate [Flonase] 1 spray INTRANASAL DAILY 07/27/20 07/27/20 glyburide 5 mg PO DAILY 07/27/20 07/27/20 sevelamer HCl 800 mg PO TID 07/27/20 07/27/20 vitamin E 400 unit PO DAILY 07/27/20 07/27/20 Previous Rx's Medication Instructions Recorded amlodipine 10 mg PO DAILY #30 tab 04/28/20 ascorbic acid (vitamin C) 250 mg PO BID #30 tab 04/28/20 atorvastatin 80 mg PO BEDTIME #30 tab 04/28/20 metoprolol tartrate 50 mg PO BID #60 tab 04/28/20 omeprazole 20 mg PO DAILY@0630 #30 cap 04/28/20 doxycycline hyclate 100 mg capsule 100 mg PO BID 30 Days #60 cap 05/26/20 Allergies Allergy/AdvReac Type Severity Reaction Status Date / Time No Known Allergies Allergy Verified 06/15/20 16:02 [No Known Allergies*] Review of Systems Review of Systems: Yes all other systems are reviewed and are negative Constitutional: Constitutional: Reports no additional constitutional complaints, Reports body ache(s), Reports chills, Denies fever(s), Denies headache(s) and Reports weakness Eyes: Eyes: Reports no additional eye complaints and Denies change in vision ENT: Reports system reviewed and no additional complaints, except as documented, Denies dizziness, Denies headache(s), Denies nasal congestion, Denies nasal discharge and Denies neck pain Cardiovascular: Cardiovascular: Reports no additional cardiovascular complaints, Denies chest pain, Denies leg edema and Denies dyspnea Respiratory: Respiratory: Reports no additional respiratory complaints, Denies cough and Denies dyspnea Gastrointestinal: Gastrointestinal: Reports no additional gastrointestinal complaints, Denies abdominal pain, Denies diarrhea, Reports nausea and Reports vomiting Genitourinary: Genitourinary: Reports no additional female genitourinary complaints and Denies urinary incontinence Musculoskeletal: Musculoskeletal: Reports no additional musculoskeletal complaints, Denies back pain, Denies arthralgias, Denies joint swelling, Denies neck pain, Denies numbness and Denies tingling Integumentary/Breasts: Skin/Breast: Reports system reviewed and no additional complaints, except as docu and Denies rash Neurologic: Reports system reviewed and no additional complaints, except as documented, Denies Abnormal speech present, Denies dizziness, Denies headache(s), Denies numbness, Denies tingling and Reports weakness PMFSH Past Medical History Attestation statement: The following information was validated with the patient. Source: old records reviewed and nursing notes reviewed Medical History Blind Diabetes UTI due to Klebsiella species Social History Social History Household Members: None Housing: Condominium Do you presently have visiting nurse or other home services: No Alcohol intake: unknown Smoked in Last 30 Days: No Use of substances other than those prescribed or required for medical reasons: No Advance Directives: No Advance Directives Information Provided: Yes service: No Current occupational status: disabled Physical Exam Vital Signs: Vital Signs: Last Vital Signs Temp 98.2 F 07/27/20 16:23 Pulse 97 07/27/20 18:33 Resp 16 07/27/20 18:33 BP 172/67 H 07/27/20 18:33 Pulse Ox 100 07/27/20 18:33 Body Mass Index 23.1 Const: General: cooperative, healthy appearing, comfortable and no acute distress Orientation/consciousness: patient oriented x3 Limitations: no limitations HENMT: Head: Yes normal to inspection Ears: hearing grossly normal bilaterally General nose exam: Normal external nose present Face and sinus: Yes normal facial exam Mouth: Normal oral and palatal mucosa present Throat: Yes posterior oropharynx normal Neck: Neck: Yes normal visual inspection Chest: Chest palpation & inspection: normal inspection of the chest Resp: Effort & Inspection: normal respiratory effort Auscultation: clear to auscultation bilaterally Cardio: Rate: regular rate Rhythm: regular rhythm Peripheral pulses: Peripheral pulses 2+ throughout GI: Inspection: Yes normal to inspection Palpation (GI): Soft to palpation and nontender Auscultation: normal bowel sounds Back/Spine/Pelvis: Thoracic/Lumbar Spine: thoracic and lumbar spine normal to inspection Skin: General skin exam: no rashes or lesions noted Neuro: General: patient oriented x3 and moves all extremities Cognition (Neuro): normal cognition Speech: No Abnormal speech present Extrem: Other: General: Yes normal to inspection Course Course Course Narrative: 75 yo female coming from wound care with worsening right great toe infection (now wet/dry gangrene, foul odor) with chills, body aches, gen weakness and vomiting. Will need labs including blood cultures, lactic acid, COVID screen, foot/abdomen x-ray, antibiotics and admission. 1900-Anemia at baseline, renal function at baseline. X-ray concerning for osteo. Discussed with Dr Hernandez who accepted admission. MDM - Extremity (Nontraumatic) Lab Data Result diagrams: 07/27/20 17:10 07/27/20 17:10 Labs: Lab Results 07/27/20 07/27/20 07/27/20 Range/Units 17:10 17:10 17:10 WBC 9.0 (4.8-10.8) X10*3/uL RBC 3.18 L (4.20-5.50) X10*6/uL Hgb 8.8 L (12.0-16.0) g/dl Hct 27.1 L (37-47) % MCV 85.2 (80-98) fL MCH 27.7 (27.0-33.0) pg MCHC 32.5 (31.0-35.0) g/dl RDW 15.7 (11.0-16.0) % Plt Count 288 D (160-400) X10*3/uL MPV 9.5 (9.4-12.3) fL Immature Gran % (Auto) 0.2 (0.0-0.4) % Neut % (Auto) 72.6 (45-73) % Lymph % (Auto) 17.6 L (20-40) % Posey % (Auto) 7.6 (2-11) % Eos % (Auto) 1.3 (0-4) % Baso % (Auto) 0.7 (0-2) % Lymph # (Auto) 1.6 (1.2-4.9) X10*3/uL Posey # (Auto) 0.7 (0.1-1.2) X10*3/uL Eos # (Auto) 0.1 (0.0-0.4) X10*3/uL Baso # (Auto) 0.1 (0.0-0.2) X10*3/uL Abs Immat Gran (auto) 0.02 (0.00-0.03) X10*3/uL Absolute Neuts (auto) 6.5 (2.0-8.3) X10*3/uL Absolute Nucleated RBC 0.000 (0.0-0.012) X10*3/uL Nucleated RBC % (auto) 0.0 (0.0-0.2) /100WBC Sodium 137 (135-145) mmol/L Potassium 5.0 (3.3-5.1) mmol/L Chloride 109 H (96-108) mmol/L Carbon Dioxide 18 L (22-29) mmol/L Anion Gap 15 (12-20) BUN 65 H (9-16) mg/dL Creatinine 3.10 H (0.5-1.4) mg/dL Estim Creat Clear Calc 14.5 Estimated GFR 15 Random Glucose 159 H (60-115) mg/dL Lactic Acid 0.7 (0.5-2.0) mmol/L Calcium 9.5 D (8.4-10.2) mg/dL Total Bilirubin 0.4 (0.0-1.0) mg/dL Direct Bilirubin < 0.2 (0.0-0.5) mg/dL AST 12 (5-31) U/L ALT < 6 (0-31) U/L Alkaline Phosphatase 85 (39-117) U/L Total Protein 7.7 (6.5-8.0) g/dL Albumin 3.7 (3.5-5.0) g/dL COVID-19 ([facility]) (Negative) COVID-19 Clin Com 07/27/20 Range/Units 17:10 WBC (4.8-10.8) X10*3/uL RBC (4.20-5.50) X10*6/uL Hgb (12.0-16.0) g/dl Hct (37-47) % MCV (80-98) fL MCH (27.0-33.0) pg MCHC (31.0-35.0) g/dl RDW (11.0-16.0) % Plt Count (160-400) X10*3/uL MPV (9.4-12.3) fL Immature Gran % (Auto) (0.0-0.4) % Neut % (Auto) (45-73) % Lymph % (Auto) (20-40) % Posey % (Auto) (2-11) % Eos % (Auto) (0-4) % Baso % (Auto) (0-2) % Lymph # (Auto) (1.2-4.9) X10*3/uL Posey # (Auto) (0.1-1.2) X10*3/uL Eos # (Auto) (0.0-0.4) X10*3/uL Baso # (Auto) (0.0-0.2) X10*3/uL Abs Immat Gran (auto) (0.00-0.03) X10*3/uL Absolute Neuts (auto) (2.0-8.3) X10*3/uL Absolute Nucleated RBC (0.0-0.012) X10*3/uL Nucleated RBC % (auto) (0.0-0.2) /100WBC Sodium (135-145) mmol/L Potassium (3.3-5.1) mmol/L Chloride (96-108) mmol/L Carbon Dioxide (22-29) mmol/L Anion Gap (12-20) BUN (9-16) mg/dL Creatinine (0.5-1.4) mg/dL Estim Creat Clear Calc Estimated GFR Random Glucose (60-115) mg/dL Lactic Acid (0.5-2.0) mmol/L Calcium (8.4-10.2) mg/dL Total Bilirubin (0.0-1.0) mg/dL Direct Bilirubin (0.0-0.5) mg/dL AST (5-31) U/L ALT (0-31) U/L Alkaline Phosphatase (39-117) U/L Total Protein (6.5-8.0) g/dL Albumin (3.5-5.0) g/dL COVID-19 ([facility]) Negative (Negative) COVID-19 Clin Com See Note Imaging Data Abdominal x-ray: Attestation: I personally reviewed and interpreted this imaging study as follows: Radiologist's impression: Moderate constipation. Moderate S-shaped scoliosis of dorsolumbar spine. right foot xray: Attestation: I personally reviewed and interpreted this imaging study as follows: Radiologist's impression: IMPRESSION: Findings suggestive of osteomyelitis distal phalanx right great toe with moderate soft tissue swelling and edema. No visible acute fracture or dislocation. ECG Data Attestation EKG: I personally reviewed and interpreted this ECG as follows: ECG interpretation date: 07/27/20 ECG interpretation time: 17:13 Interpretation: ST with rate 102, normal pr, normal qrs, normal qtc Discharge Plan Discharge Clinical Impression: Osteomyelitis of great toe of right foot, Anemia, CKD (chronic kidney disease) Patient Disposition: Admitted As Inpatient Prescriptions: No Action prednisolone acetate 1 % drops,suspension 1 drp ophthalmic-Left DAILY RF: 0 timolol maleate 0.25 % drops 1 drp ophthalmic-Right DAILY RF: 0 atropine 1 % drops 1 drp ophthalmic-Left TID RF: 0 amlodipine 5 mg Tablet 10 mg PO DAILY Qty: 30 RF: 0 atorvastatin 80 mg Tablet 80 mg PO BEDTIME Qty: 30 RF: 0 metoprolol tartrate 25 mg Tablet 50 mg PO BID Qty: 60 RF: 0 omeprazole 20 mg Capsule,Delayed Release(Dr/Ec) 20 mg PO DAILY@0630 Qty: 30 RF: 0 ascorbic acid (vitamin C) 250 mg Tablet 250 mg PO BID Qty: 30 RF: 0 fexofenadine 60 mg Tablet 60 mg PO DAILY RF: 0 glyburide 5 mg Tablet 5 mg PO DAILY RF: 0 sevelamer HCl 800 mg Tablet 800 mg PO TID RF: 0 aspirin 81 mg Tablet,Delayed Release (Dr/Ec) 81 mg PO DAILY RF: 0 acetaminophen 500 mg Tablet 1,000 mg PO TID PRN (Reason: Pain (Scale Score 1-3)) RF: 0 bumetanide 0.5 mg Tablet 0.5 mg PO BID RF: 0 fluticasone propionate [Flonase] 50 mcg/actuation [place],Suspension 1 spray INTRANASAL DAILY RF: 0 calcitriol 0.25 mcg Capsule 0.25 mcg PO DAILY RF: 0 vitamin E 400 unit Capsule 400 unit PO DAILY RF: 0 cholecalciferol (vitamin D3) 50 mcg (2,000 unit) Tablet 50 mcg PO DAILY RF: 0 cyanocobalamin (vitamin B-12) 1,000 mcg/mL Kit 1,000 mcg IM QMONTH RF: 0 doxycycline hyclate 100 mg capsule 100 mg PO BID 30 Days Qty: 60 RF: 1
[2020-07-27 17:17] LABS: MANUAL DIFF FLAG NO
[2020-07-27 17:20] LABS: Basophils Absolute Auto 0.1 X10*3/uL (0.0-0.2); Basophils Percent Auto 0.7 % (0-2); Eosinophils Absolute Auto 0.1 X10*3/uL (0.0-0.4); Eosinophils Percent Auto 1.3 % (0-4); Hematocrit 27.1 % (37-47); Hemoglobin 8.8 g/dl (12.0-16.0); Imm Gran Abs Auto 0.02 X10*3/uL (0.00-0.03); Imm Gran Pct Auto 0.2 % (0.0-0.4); Lymphocytes Absolute Auto 1.6 X10*3/uL (1.2-4.9); Lymphocytes Percent Auto 17.6 % (20-40); Mean Corpuscular HGB Conc 32.5 g/dl (31.0-35.0); Mean Corpuscular Hemoglobin 27.7 pg (27.0-33.0); Mean Corpuscular Volume 85.2 fL (80-98); Mean Platelet Volume 9.5 fL (9.4-12.3); Monocytes Absolute Auto 0.7 X10*3/uL (0.1-1.2); Monocytes Percent Auto 7.6 % (2-11); Neutrophils Absolute Auto 6.5 X10*3/uL (2.0-8.3); Neutrophils Percent Auto 72.6 % (45-73); Platelet Count 288 X10*3/uL (160-400); Red Blood Count 3.18 X10*6/uL (4.20-5.50); Red Cell Distribution Width 15.7 % (11.0-16.0)
[2020-07-27] MEDS: ondansetron HCL 4 MG/2 ML VIAL IVPUSH ×2 (17:25→22:41)
[2020-07-27] MEDS: Piperacillin Sodium/Tazobactam 3.375 GM in 0.9 % Sodium Chloride 50 ML IV (17:25)
[2020-07-27] MEDS: Morphine Sulfate 4 MG/ML CARTRIDGE IVPUSH ×2 (17:32→22:41)
[2020-07-27 17:36] LABS: Lactic Acid 0.7 mmol/L (0.5-2.0)
[2020-07-27 17:45] LABS: Alanine Aminotransferase < 6 U/L (0-31); Albumin Level 3.7 g/dL (3.5-5.0); Alkaline Phosphatase 85 U/L (39-117); Anion Gap 15 (12-20); Aspartate Amino Transferase 12 U/L (5-31); Bilirubin Direct < 0.2 mg/dL (0.0-0.5); Bilirubin Total 0.4 mg/dL (0.0-1.0); Blood Urea Nitrogen 65 mg/dL (9-16); COVID-19 Test Negative (Negative); Calcium 9.5 mg/dL (8.4-10.2); Carbon Dioxide 18 mmol/L (22-29); Chloride 109 mmol/L (96-108); Creatinine Clr Calc Pharmacy 14.5; Estimated Glomerular Filt Rate 15; Glucose Random 159 mg/dL (60-115); IDNOW Serial# 9DD0AD1C; Sodium 137 mmol/L (135-145); Total Protein 7.7 g/dL (6.5-8.0)
[2020-07-27 17:52] VITALS: PULSE 95; RESP 16; O2SAT 100
[2020-07-27] MEDS: vancomycin HCL 1,000 MG in 0.9 % Sodium Chloride 250 ML 270 MG IV (18:28)
--- NOTE | 2020-07-27 18:29 | HE.PHANOTE ---
Pharmacy Consult ? Medication Reconciliation Pharmacy has completed the medication reconciliation and there were no significant medication issues requiring provider attention. Suni JohnsonD
[2020-07-27 18:33] VITALS: BP 172/67; PULSE 97; RESP 16; O2SAT 100
--- NOTE | 2020-07-27 21:29 | MHC.CM.PN ---
Addendum entered by Nani Montes 07/27/20 21:55: IMM read to patient. Pt verbalizes understand and signed with initials. 07/27/20@2054 Original Note: CM met with pt. Pt has been blind since 2013. Pt lives in LTC at [facility]. Pt has been there since April for PT and wound care. Pt uses a wheelchair and tells CM she doesn't walk anymore. Pt has wet/dry gangrene of R great toe. Pt has osteomyelitis in the right great toe. Pt tells CM she does not want to return to [facility], as she feels they have not taken very good care of her toe and she is not comfortable there. Pt states she would like to go to [facility]. HCP is on file. HCP/daughter, Amara Paredes ([phone]). D/C plan is to continue LTC, possibly at another facility. Transportation via S. CM to follow for d/c needs.
[2020-07-27 22:41] VITALS: RESP 20
[2020-07-27] MEDS: Acetaminophen 325 MG TABLET 650 MG PO (22:41)
[2020-07-27 22:57] VITALS: BP 179/78; PULSE 105; RESP 15; TEMP 36.6; O2SAT 98
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
[2020-07-27 23:23] VITALS: BP 177/67; PULSE 105; RESP 18; TEMP 37.1; O2SAT 97
[2020-07-27] MEDS: Atropine Sulfate 1 % Ophth Sol 2 ML BOTTLE 1 DROP EYE-LEFT (23:33)
[2020-07-27] MEDS: 0.9 % Sodium Chloride Flush 3 ML SYRINGE IVFLUSH (23:40)
[2020-07-28] MEDS: Piperacillin Sodium/Tazobactam 3.375 GM in 0.9 % Sodium Chloride 50 ML IV ×3 (01:00→16:43)
[2020-07-28 03:36] VITALS: BP 131/61; PULSE 87; RESP 17; TEMP 36.3; O2SAT 98
[2020-07-28] MEDS: Omeprazole 20 MG CAPSULE.DR PO (05:52)
[2020-07-28 06:36] LABS: MANUAL DIFF FLAG NO
[2020-07-28 06:57] LABS: Basophils Absolute Auto 0.1 X10*3/uL (0.0-0.2); Basophils Percent Auto 0.7 % (0-2); Eosinophils Absolute Auto 0.2 X10*3/uL (0.0-0.4); Eosinophils Percent Auto 1.7 % (0-4); Hematocrit 24.7 % (37-47); Hemoglobin 7.9 g/dl (12.0-16.0); Imm Gran Abs Auto 0.03 X10*3/uL (0.00-0.03); Imm Gran Pct Auto 0.3 % (0.0-0.4); Lymphocytes Absolute Auto 2.9 X10*3/uL (1.2-4.9); Lymphocytes Percent Auto 29.5 % (20-40); Mean Corpuscular Hemoglobin 27.9 pg (27.0-33.0); Mean Corpuscular Volume 87.3 fL (80-98); Mean Platelet Volume 9.7 fL (9.4-12.3); Monocytes Absolute Auto 1.1 X10*3/uL (0.1-1.2); Monocytes Percent Auto 11.1 % (2-11); Neutrophils Absolute Auto 5.6 X10*3/uL (2.0-8.3); Neutrophils Percent Auto 56.7 % (45-73); Platelet Count 290 X10*3/uL (160-400); Red Blood Count 2.83 X10*6/uL (4.20-5.50); Red Cell Distribution Width 15.7 % (11.0-16.0); White Blood Count 9.8 X10*3/uL (4.8-10.8)
--- NOTE | 2020-07-28 07:09 | PC.NURSE ---
pt refused all pm medications aware
[2020-07-28 07:19] LABS: Anion Gap 16 (12-20); Blood Urea Nitrogen 64 mg/dL (9-16); Calcium 9.2 mg/dL (8.4-10.2); Carbon Dioxide 18 mmol/L (22-29); Chloride 111 mmol/L (96-108); Creatinine Clr Calc Pharmacy 13.9; Estimated Glomerular Filt Rate 14; Glucose Random 105 mg/dL (60-115); Potassium 5.2 mmol/L (3.3-5.1); Sodium 140 mmol/L (135-145)
[2020-07-28 07:26] LABS: Glucose, Whole Blood 94 mg/dL (60-115)
[2020-07-28 07:29] LABS: Erythrocyte Sedimentation Rate 95 MM/HR (0-20)
[2020-07-28 08:00] VITALS: BP 166/74; PULSE 92; RESP 18; TEMP 36.3; O2SAT 98
[2020-07-28] MEDS: Cholecalciferol (Vitamin D3) 25 MCG TABLET 50 MCG PO (08:25)
[2020-07-28] MEDS: Aspirin Enteric Coated 81 MG TABLET.DR PO (08:25)
[2020-07-28] MEDS: Ascorbic Acid 250 MG TABLET PO (08:26)
[2020-07-28] MEDS: Atropine Sulfate 1 % Ophth Sol 2 ML BOTTLE 1 DROP EYE-LEFT ×3 (08:27→20:52)
[2020-07-28] MEDS: 0.9 % Sodium Chloride Flush 3 ML SYRINGE IVFLUSH ×2 (08:32→16:43)
--- NOTE | 2020-07-28 10:26 | P.CONGS_ITS ---
History of Present Illness Consult details Consult date: 07/28/20 Reason for consult: wound care Narrative: Complex 75-year-old female presents for vascular evaluation. She is a patient well known to me with history of peripheral vascular disease and nonhealing right great toe. [facility] and there was concern about her overall status of the foot. She has been subsequently admitted. She now presents for vascular evaluation. Review of Systems Review of Systems: Yes all other systems are reviewed and are negative Constitutional: Constitutional: Reports no additional constitutional complaints ENT: Reports Normal hearing present Cardiovascular: Cardiovascular: Denies chest pain, Denies chest pain at rest, Denies chest pain with activity and Denies pedal edema Respiratory: Respiratory: Denies cough Gastrointestinal: Gastrointestinal: Denies abdominal pain Musculoskeletal: Musculoskeletal: Denies abnormal gait, Denies muscle cramps and Denies radiating pain into limb Integumentary/Breasts: Skin/Breast: Denies skin ulcer and Denies wounds Neurologic: Reports Normal hearing present and Denies abnormal gait Psychiatric: Psychiatric: Reports no additional psychiatric complaints [facility] Past Medical History Medical History (Updated 07/28/20 @ 10:30 by Mateo Blood MD) Anemia Blind CKD (chronic kidney disease) Coronary artery disease Diabetes Diabetic foot infection Essential hypertension PAD (peripheral artery disease) UTI due to Klebsiella species Social History Social History Household Members: None Housing: [facility]dc Do you presently have visiting nurse or other home services: No Alcohol intake: unknown Patient Tobacco Use Status: Never used Tobacco Smoked in Last 30 Days: No Use of substances other than those prescribed or required for medical reasons: No Currently Displaying Signs/Symptoms of Drug Intoxication Withdrawal: No Have you been hit, kicked, punched, or otherwise hurt by someone within the past year? If so, by whom?: No Do you feel safe in your current relationship?: No Current Relationship Is there a partner from a previous relationship who is making you feel unsafe no w?: No Are you made to feel afraid or neglected: No Advance Directives: No Advance Directives Information Provided: Yes Recently lost weight without trying: Yes How much weight loss: 24-33 pounds Nutrition Risks: No Nutritional Risk service: No Current occupational status: disabled Meds Allergies Allergy/AdvReac Type Severity Reaction Status Date / Time No Known Allergies Allergy Verified 06/15/20 16:02 [No Known Allergies*] Active Medications: Current Medications Generic Name Dose Route Start Last Admin Trade Name Steve PRN Reason Stop Dose Admin Acetaminophen 650 mg 07/27/20 22:23 07/27/20 22:41 Acetaminophen 325 Mg Tablet PO 650 mg Q6H PRN Administration Pain, Mild (Pain Scale 1-3) Amlodipine Besylate 10 mg 07/28/20 09:00 07/28/20 08:13 Amlodipine Besylate 5 Mg Tablet PO Not Given DAILY [facility] Protocol Ascorbic Acid 250 mg 07/28/20 09:00 07/28/20 08:26 Ascorbic Acid 250 Mg Tablet PO 250 mg BID RAUL Administration Aspirin 81 mg 07/28/20 09:00 07/28/20 08:25 Aspirin Enteric Coated 81 Mg Tablet. PO 81 mg DAILY [facility] Administration Atorvastatin Calcium 80 mg 07/27/20 22:23 07/27/20 23:32 Atorvastatin Calcium 80 Mg Tablet PO Not Given BEDTIME [facility] Atropine Sulfate 1 drop 07/27/20 22:23 07/28/20 08:27 Atropine Sulfate 1 % Ophth Jacki 2 Ml Bottle EYE-LEFT 1 drop TID [facility] Administration Bumetanide 0.5 mg 07/27/20 22:23 07/28/20 08:14 Bumetanide 1 Mg Tablet PO Not Given BID [facility] Protocol Calcitriol 0.25 mcg 07/28/20 09:00 Calcitriol 0.25 Mcg Capsule PO DAILY [facility] Cyanocobalamin 1,000 mcg 08/15/20 09:00 Cyanocobalamin (Vitamin B-12) 1,000 Mcg/Ml Vial IM Q28D [facility] Docusate Sodium 100 mg 07/27/20 22:23 Docusate Sodium 100 Mg Capsule PO DAILY PRN Constipation Fluticasone Propionate 1 spray 07/28/20 09:00 Fluticasone Propionate Nasal 16 Gm [place] NOSTRIL-B DAILY [facility] Vancomycin HCl 750 mg/ Sodium 265 mls @ 265 mls/hr 07/29/20 17:00 Chloride IV Q24H [facility] Piperacillin Sod/Tazobactam 50 mls @ 100 mls/hr 07/28/20 01:00 07/28/20 09:02 Sod 3.375 gm/ Sodium Chloride IV Infused Q8H [facility] Infusion Insulin Human Lispro 0 unit 07/28/20 07:30 07/28/20 08:11 Insulin Lispro 100 Unit/Ml 3 Ml Vial SUBCUT Not Given QIDACHS [facility] Protocol Loratadine 10 mg 07/28/20 09:00 07/28/20 08:14 Loratadine 10 Mg Tablet PO Not Given DAILY [facility] Metoprolol Tartrate 50 mg 07/27/20 22:23 07/28/20 08:13 Metoprolol Tartrate 50 Mg Tablet PO Not Given BID [facility] Protocol Morphine Sulfate 4 mg 07/27/20 22:23 07/27/20 22:41 Morphine Sulfate 4 Mg/Ml Cartridge IVPUSH 4 mg Q4H PRN Administration Pain, Severe (Pain Scale 7-10) Non-Formulary Medication 1 drop 07/28/20 09:00 Timolol Maleate EYE-RIGHT DAILY [facility] Omeprazole 20 mg 07/28/20 06:30 07/28/20 05:52 Omeprazole 20 Mg Capsule.Dr PO 20 mg DAILY@0630 [facility] Administration Ondansetron HCl 4 mg 07/27/20 22:23 07/27/20 22:41 Ondansetron Hcl 4 Mg/2 Ml Vial IVPUSH 4 mg Q8H PRN Administration Nausea and Vomiting Pharmacy Consult 1 each 07/27/20 16:25 Consult Rx Perform Med Rec MISCELLANE ONCE PRN Consult order Pharmacy Consult 1 each 07/27/20 16:38 Consult Rx Vancomycin Dosing MISCELLANE DAILY PRN Consult order Polyethylene Glycol 17 gm 07/28/20 09:00 07/28/20 08:12 Polyethylene Glycol 3350 17 Gm Powd.Pack PO Not Given DAILY [facility] Prednisolone Acetate 1 drop 07/28/20 09:00 Prednisolone Acetate 1 % Oph Susp 5 Ml Drpbtl EYE-LEFT DAILY [facility] Sevelamer Carbonate 800 mg 07/28/20 09:00 07/28/20 08:12 Sevelamer Carbonate Tablet 800 Mg Tablet PO Not Given TID [facility] Sodium Chloride 3 ml 07/28/20 00:00 07/28/20 08:32 0.9 % Sodium Chloride Flush 3 Ml Syringe IVFLUSH 3 ml QSHIFT [facility] Administration Vitamin D 50 mcg 07/28/20 09:00 07/28/20 08:25 Cholecalciferol (Vitamin D3) 25 Mcg Tablet PO 50 mcg DAILY [facility] Administration Home Medications Medication Instructions Recorded Confirmed Last Taken Type atropine 1 drp OPHTHALMIC-LEFT TID 04/15/20 07/27/20 Unknown History prednisolone acetate 1 drp OPHTHALMIC-LEFT DAILY 04/15/20 07/27/20 Unknown History timolol maleate 1 drp OPHTHALMIC-RIGHT DAILY 04/15/20 07/27/20 Unknown History acetaminophen 1,000 mg PO TID PRN 07/27/20 07/27/20 Unknown History aspirin 81 mg PO DAILY 07/27/20 07/27/20 Unknown History bumetanide 0.5 mg PO BID 07/27/20 07/27/20 Unknown History calcitriol 0.25 mcg PO DAILY 07/27/20 07/27/20 Unknown History cholecalciferol (vitamin D3) 50 mcg PO DAILY 07/27/20 07/27/20 Unknown History cyanocobalamin (vitamin B-12) 1,000 mcg IM QMONTH 07/27/20 07/27/20 07/18/20 History fexofenadine 60 mg PO DAILY 07/27/20 07/27/20 Unknown History fluticasone propionate [Flonase] 1 spray INTRANASAL DAILY 07/27/20 07/27/20 Unknown History glyburide 5 mg PO DAILY 07/27/20 07/27/20 Unknown History sevelamer HCl 800 mg PO TID 07/27/20 07/27/20 Unknown History vitamin E 400 unit PO DAILY 07/27/20 07/27/20 Unknown History Physical Exam Vital Signs: Vital Signs: Last Vital Signs Temp 97.4 F 07/28/20 08:00 Pulse 92 07/28/20 08:00 Resp 18 07/28/20 08:00 BP 166/74 H 07/28/20 08:00 Pulse Ox 98 07/28/20 08:00 Body Mass Index 23.1 Const: General: cooperative, healthy appearing and comfortable Orientation/consciousness: oriented to person, oriented to place and oriented to time HENMT: Head: Yes normal to inspection Neck: Neck: Yes normal visual inspection Carotids: no bruits Chest: Chest palpation & inspection: normal inspection of the chest Resp: Effort & Inspection: normal respiratory effort and able to speak in complete sentences Auscultation: clear to auscultation bilaterally, no crackles, no rales, no rhonchi and no wheezes Cardio: Rate: regular rate Rhythm: regular rhythm Heart sounds: S1 normal heart sound present and S2 normal heart sound present Bruits: no carotid bruits Peripheral pulses: dorsalis pedis present (Right side DP signal) GI: Inspection: Yes normal to inspection Skin: Wounds: wounds noted (Right great toe gangrene) Hair: normal Neuro: General: oriented to person, oriented to place and oriented to time Cranial nerves: Yes CN's II-XII intact bilaterally and Yes Normal hearing present Cognition (Neuro): normal cognition Motor exam (neuro): 5/5 motor strength present throughout Extrem: Other: venous exam: No significant superficial varicosities or spider telangiectasias, minimal edema General: No clubbing, No cyanosis and No edema Psych: Appearance: grossly normal Mental Status: mental status grossly normal Speech and movement: Normal speech and movement present Results Labs Result diagrams: 07/28/20 06:05 07/28/20 06:05 Labs: Abnormal lab results 07/27/20 07/27/20 07/28/20 Range/Units 17:10 17:10 06:05 RBC 3.18 L 2.83 L (4.20-5.50) X10*6/uL Hgb 8.8 L 7.9 L (12.0-16.0) g/dl Hct 27.1 L 24.7 L (37-47) % Lymph % (Auto) 17.6 L (20-40) % [place] % (Auto) 11.1 H (2-11) % ESR (0-20) MM/HR Potassium (3.3-5.1) mmol/L Chloride 109 H (96-108) mmol/L Carbon Dioxide 18 L (22-29) mmol/L BUN 65 H (9-16) mg/dL Creatinine 3.10 H (0.5-1.4) mg/dL Random Glucose 159 H (60-115) mg/dL 07/28/20 07/28/20 Range/Units 06:05 06:06 RBC (4.20-5.50) X10*6/uL Hgb (12.0-16.0) g/dl Hct (37-47) % Lymph % (Auto) (20-40) % [place] % (Auto) (2-11) % ESR 95 H (0-20) MM/HR Potassium 5.2 H (3.3-5.1) mmol/L Chloride 111 H (96-108) mmol/L Carbon Dioxide 18 L (22-29) mmol/L BUN 64 H (9-16) mg/dL Creatinine 3.22 H (0.5-1.4) mg/dL Random Glucose (60-115) mg/dL Short CBC 07/27/20 07/28/20 Range/Units 17:10 06:05 WBC 9.0 9.8 (4.8-10.8) X10*3/uL Hgb 8.8 L 7.9 L (12.0-16.0) g/dl Hct 27.1 L 24.7 L (37-47) % Plt Count 288 D 290 (160-400) X10*3/uL BMP 07/27/20 07/28/20 17:10 06:05 Sodium 137 140 Potassium 5.0 5.2 H Chloride 109 H 111 H Carbon Dioxide 18 L 18 L BUN 65 H 64 H Creatinine 3.10 H 3.22 H Calcium 9.5 D 9.2 Liver Function 07/27/20 Range/Units 17:10 Total Bilirubin 0.4 (0.0-1.0) mg/dL Direct Bilirubin < 0.2 (0.0-0.5) mg/dL AST 12 (5-31) U/L ALT < 6 (0-31) U/L Alkaline Phosphatase 85 (39-117) U/L Albumin 3.7 (3.5-5.0) g/dL All other labs normal. Assessment and Plan (1) PAD (peripheral artery disease): Status: Acute In short patient has nonhealing great toe ulceration - right. She has significant peripheral vascular disease. She had undergone an angiogram on 04/19/2020 which demonstrated an occluded right iliac artery. She is in need for a fem-fem bypass (left to right). Unfortunately and amputation will not heal without revascularization. She was seen and evaluated by Dr. Almeida from Cardiology on 04/22/2020. At that time it was felt she had multi-vessel coronary disease. She had some confusion and fevers at that point and cardiac catheterization was withheld. She appears to be stable now. She may need transfer to [facility] for cardiac catheterization. Would recommend radial approach. Once she is stable from a cardiac standpoint would perform fem-fem bypass and subsequent toe amputation. Thank you for allowing us to assist in her care. If there are any questions or concerns please do not hesitate to contact us. Procedures Date of Service Date of Service: 07/28/20
[2020-07-28 11:19] VITALS: BP 158/61; PULSE 86; RESP 18; TEMP 36.3; O2SAT 97
[2020-07-28 11:21] VITALS: BMI 23.1
[2020-07-28 11:31] LABS: Glucose, Whole Blood 85 mg/dL (60-115)
[2020-07-28] MEDS: calcitrioL 0.25 MCG CAPSULE PO (11:56)
--- NOTE | 2020-07-28 12:32 | MHC.CM.PN ---
EMR REVIEWED, PER VASCULAR CONSULT PT MAY NEED TXFR TO [facility] FOR CARDIAC CATH WHICH WAS DECLINED IN APRIL 2020 DUE TO CONFUSION AND FEVERS, PT WILL ALSO NEED RIGHT GREAT TOE AMP DUE TO NONHEALING WOUND, NO PLAN FOR D/C TODAY, PER PT REQUEST REFERRAL MADE TO [facility] FOR LTC DUE TO PT NOT BEING HAPPY WITH [facility] [place].
--- NOTE | 2020-07-28 13:47 | P.CONGS_ITS ---
History of Present Illness Consult details Consult date: 07/28/20 Requesting physician: Michaelle Knapp Narrative: Vesta Vences is a 75-year-old female patient with a known history of peripheral vascular disease presenting with a nonhealing right great toe wound. The patient has been under the care of Dr. Blood from vascular surgery with plans for possible fem-fem bypass. General surgery consultation was requested for management of the great toe wound. [facility] feels the dressings were not being changed appropriately. She denies current pain in the foot and toe. The patient is currently admitted to the hospitalist service. Foot x-ray upon admission reveals: Right toe: There is ostial lysis involving the medial aspect distal phalanx, right great toe consistent with osteomyelitis. There is moderate soft tissue swelling. The PIP joint space is preserved. The proximal phalanx first digit and the rest of the right foot appears unremarkable. There is vascular calcification seen throughout the right foot. No acute fracture. Review of Systems Constitutional: Constitutional: Reports body ache(s), Denies chills and Denies fever(s) Eyes: Comments: Blindness Respiratory: Respiratory: Denies chest congestion, Denies cough and Denies hemoptysis Gastrointestinal: Gastrointestinal: Denies abdominal pain, Denies hematochezia, Reports nausea and Denies vomiting Musculoskeletal: Musculoskeletal: Reports as per [facility] Past Medical History Medical History Anemia Blind CKD (chronic kidney disease) Coronary artery disease Diabetes Diabetic foot infection Essential hypertension PAD (peripheral artery disease) UTI due to Klebsiella species Social History Social History Household Members: None Housing: Shelter Do you presently have visiting nurse or other home services: No Alcohol intake: unknown Patient Tobacco Use Status: Never used Tobacco Smoked in Last 30 Days: No Use of substances other than those prescribed or required for medical reasons: No Currently Displaying Signs/Symptoms of Drug Intoxication Withdrawal: No Have you been hit, kicked, punched, or otherwise hurt by someone within the past year? If so, by whom?: No Do you feel safe in your current relationship?: No Current Relationship Is there a partner from a previous relationship who is making you feel unsafe now?: No Are you made to feel afraid or neglected: No Advance Directives: No Advance Directives Information Provided: Yes Do you have thoughts of harming others: None Do you have a plan to hurt others: No Plan Recently lost weight without trying: Yes How much weight loss: 24-33 pounds Nutrition Risks: No Nutritional Risk service: No Current occupational status: disabled Meds Allergies Allergy/AdvReac Type Severity Reaction Status Date / Time No Known Allergies Allergy Verified 06/15/20 16:02 [No Known Allergies*] Active Medications: Current Medications Generic Name Dose Route Start Last Admin Trade Name Freq PRN Reason Stop Dose Admin Acetaminophen 650 mg 07/27/20 22:23 07/27/20 22:41 Acetaminophen 325 Mg Tablet PO 650 mg Q6H PRN Administration Pain, Mild (Pain Scale 1-3) Amlodipine Besylate 10 mg 07/28/20 09:00 07/28/20 08:13 Amlodipine Besylate 5 Mg Tablet PO Not Given DAILY [facility] Protocol Ascorbic Acid 250 mg 07/28/20 09:00 07/28/20 08:26 Ascorbic Acid 250 Mg Tablet PO 250 mg BID RAUL Administration Aspirin 81 mg 07/28/20 09:00 07/28/20 08:25 Aspirin Enteric Coated 81 Mg Tablet.Dr PO 81 mg DAILY RAUL Administration Atorvastatin Calcium 80 mg 07/27/20 22:23 07/27/20 23:32 Atorvastatin Calcium 80 Mg Tablet PO Not Given BEDTIME RAUL Atropine Sulfate 1 drop 07/27/20 22:23 07/28/20 08:27 Atropine Sulfate 1 % Ophth Jacki 2 Ml Bottle EYE-LEFT 1 drop TID RAUL Administration Bumetanide 0.5 mg 07/27/20 22:23 07/28/20 08:14 Bumetanide 1 Mg Tablet PO Not Given BID [facility] Protocol Calcitriol 0.25 mcg 07/28/20 09:00 07/28/20 11:56 Calcitriol 0.25 Mcg Capsule PO 0.25 mcg DAILY [facility] Administration Cyanocobalamin 1,000 mcg 08/15/20 09:00 Cyanocobalamin (Vitamin B-12) 1,000 Mcg/Ml Vial IM Q28D [facility] Docusate Sodium 100 mg 07/27/20 22:23 Docusate Sodium 100 Mg Capsule PO DAILY PRN Constipation Fluticasone Propionate 1 spray 07/28/20 09:00 Fluticasone Propionate Nasal 16 Gm Chloride NOSTRIL-B DAILY [facility] Vancomycin HCl 750 mg/ Sodium 265 mls @ 265 mls/hr 07/29/20 17:00 Chloride IV Q24H [facility] Piperacillin Sod/Tazobactam 50 mls @ 100 mls/hr 07/28/20 01:00 07/28/20 09:02 Sod 3.375 gm/ Sodium Chloride IV Infused Q8H [facility] Infusion Insulin Human Lispro 0 unit 07/28/20 07:30 07/28/20 11:56 Insulin Lispro 100 Unit/Ml 3 Ml Vial SUBCUT Not Given QIDACHS [facility] Protocol Loratadine 10 mg 07/28/20 09:00 07/28/20 08:14 Loratadine 10 Mg Tablet PO Not Given DAILY [facility] Metoprolol Tartrate 50 mg 07/27/20 22:23 07/28/20 08:13 Metoprolol Tartrate 50 Mg Tablet PO Not Given BID [facility] Protocol Morphine Sulfate 4 mg 07/27/20 22:23 07/27/20 22:41 Morphine Sulfate 4 Mg/Ml Cartridge IVPUSH 4 mg Q4H PRN Administration Pain, Severe (Pain Scale 7-10) Non-Formulary Medication 1 drop 07/28/20 09:00 Timolol Maleate EYE-RIGHT DAILY [facility] Omeprazole 20 mg 07/28/20 06:30 07/28/20 05:52 Omeprazole 20 Mg Capsule.Dr PO 20 mg DAILY@0630 [facility] Administration Ondansetron HCl 4 mg 07/27/20 22:23 07/27/20 22:41 Ondansetron Hcl 4 Mg/2 Ml Vial IVPUSH 4 mg Q8H PRN Administration Nausea and Vomiting Pharmacy Consult 1 each 07/27/20 16:25 Consult Rx Perform Med Rec MISCELLANE ONCE PRN Consult order Pharmacy Consult 1 each 07/27/20 16:38 Consult Rx Vancomycin Dosing MISCELLANE DAILY PRN Consult order Polyethylene Glycol 17 gm 07/28/20 09:00 07/28/20 08:12 Polyethylene Glycol 3350 17 Gm Powd.Pack PO Not Given DAILY [facility] Prednisolone Acetate 1 drop 07/28/20 09:00 Prednisolone Acetate 1 % Oph Susp 5 Ml Drpbtl EYE-LEFT DAILY [facility] Sevelamer Carbonate 800 mg 07/28/20 09:00 07/28/20 08:12 Sevelamer Carbonate Tablet 800 Mg Tablet PO Not Given TID [facility] Sodium Chloride 3 ml 07/28/20 00:00 07/28/20 08:32 0.9 % Sodium Chloride Flush 3 Ml Syringe IVFLUSH 3 ml QSHIFT [facility] Administration Vitamin D 50 mcg 07/28/20 09:00 07/28/20 08:25 Cholecalciferol (Vitamin D3) 25 Mcg Tablet PO 50 mcg DAILY [facility] Administration Home Medications Medication Instructions Recorded Confirmed Last Taken Type atropine 1 drp OPHTHALMIC-LEFT TID 04/15/20 07/27/20 Unknown History prednisolone acetate 1 drp OPHTHALMIC-LEFT DAILY 04/15/20 07/27/20 Unknown History timolol maleate 1 drp OPHTHALMIC-RIGHT DAILY 04/15/20 07/27/20 Unknown History acetaminophen 1,000 mg PO TID PRN 07/27/20 07/27/20 Unknown History aspirin 81 mg PO DAILY 07/27/20 07/27/20 Unknown History bumetanide 0.5 mg PO BID 07/27/20 07/27/20 Unknown History calcitriol 0.25 mcg PO DAILY 07/27/20 07/27/20 Unknown History cholecalciferol (vitamin D3) 50 mcg PO DAILY 07/27/20 07/27/20 Unknown History cyanocobalamin (vitamin B-12) 1,000 mcg IM QMONTH 07/27/20 07/27/20 07/18/20 History fexofenadine 60 mg PO DAILY 07/27/20 07/27/20 Unknown History fluticasone propionate [Flonase] 1 spray INTRANASAL DAILY 07/27/20 07/27/20 Unknown History glyburide 5 mg PO DAILY 07/27/20 07/27/20 Unknown History sevelamer HCl 800 mg PO TID 07/27/20 07/27/20 Unknown History vitamin E 400 unit PO DAILY 07/27/20 07/27/20 Unknown History Physical Exam Vital Signs: Vital Signs: Last Vital Signs Temp 97.4 F 07/28/20 11:19 Pulse 86 07/28/20 11:19 Resp 18 07/28/20 11:19 BP 158/61 H 07/28/20 11:19 Pulse Ox 97 07/28/20 11:19 Body Mass Index 23.1 Const: General: cooperative, comfortable, no acute distress, alert and awake Nutritional Appearance: average body habitus Orientation/consciousness: patient oriented x3 Limitations: no limitations Resp: Effort & Inspection: normal respiratory effort, no stridor and not tachypneic Auscultation: no wheezes Skin: Other: warm, dry, no rash Neuro: General: patient oriented x3 Extrem: Other: dry gangrene involving the distal phalanx of the great toe right foot with some foul-smelling discharge noted. No tenderness to palpation. Results Labs Result diagrams: 07/28/20 06:05 07/28/20 06:05 Labs: Abnormal lab results 07/27/20 07/27/20 07/28/20 Range/Units 17:10 17:10 06:05 RBC 3.18 L 2.83 L (4.20-5.50) X10*6/uL Hgb 8.8 L 7.9 L (12.0-16.0) g/dl Hct 27.1 L 24.7 L (37-47) % Lymph % (Auto) 17.6 L (20-40) % [place] % (Auto) 11.1 H (2-11) % ESR (0-20) MM/HR Potassium (3.3-5.1) mmol/L Chloride 109 H (96-108) mmol/L Carbon Dioxide 18 L (22-29) mmol/L BUN 65 H (9-16) mg/dL Creatinine 3.10 H (0.5-1.4) mg/dL Random Glucose 159 H (60-115) mg/dL 07/28/20 07/28/20 Range/Units 06:05 06:06 RBC (4.20-5.50) X10*6/uL Hgb (12.0-16.0) g/dl Hct (37-47) % Lymph % (Auto) (20-40) % [place] % (Auto) (2-11) % ESR 95 H (0-20) MM/HR Potassium 5.2 H (3.3-5.1) mmol/L Chloride 111 H (96-108) mmol/L Carbon Dioxide 18 L (22-29) mmol/L BUN 64 H (9-16) mg/dL Creatinine 3.22 H (0.5-1.4) mg/dL Random Glucose (60-115) mg/dL Short CBC 06/17/21 06/18/21 Range/Units 17:10 06:05 WBC 9.0 9.8 (4.8-10.8) X10*3/uL Hgb 8.8 L 7.9 L (12.0-16.0) g/dl Hct 27.1 L 24.7 L (37-47) % Plt Count 288 D 290 (160-400) X10*3/uL BMP 07/27/20 07/28/20 17:10 06:05 Sodium 137 140 Potassium 5.0 5.2 H Chloride 109 H 111 H Carbon Dioxide 18 L 18 L BUN 65 H 64 H Creatinine 3.10 H 3.22 H Calcium 9.5 D 9.2 Liver Function 07/27/20 Range/Units 17:10 Total Bilirubin 0.4 (0.0-1.0) mg/dL Direct Bilirubin < 0.2 (0.0-0.5) mg/dL AST 12 (5-31) U/L ALT < 6 (0-31) U/L Alkaline Phosphatase 85 (39-117) U/L Albumin 3.7 (3.5-5.0) g/dL All other labs normal. Assessment and Plan (1) Osteomyelitis of great toe of right foot: Status: Acute 75-year-old female patient with gangrenous changes of the right great toe as noted above. Patient is being evaluated by vascular surgery (Dr. 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 Patient is felt to require a fem-fem bypass but 1st requires management of her multivessel coronary artery disease. Once this is completed, further management of her vascular disease and great toe gangrene would best be managed by Dr. Blood. I will defer further management to Dr. Blood and sign off. Please re-consult if needed. Procedures Date of Service Date of Service: 07/28/20
[2020-07-28 15:43] VITALS: BP 145/62; PULSE 93; RESP 19; TEMP 37.4; O2SAT 98
[2020-07-28 16:14] LABS: Glucose, Whole Blood 140 mg/dL (60-115)
--- NOTE | 2020-07-28 16:15 | P.PNIM_ITS ---
Subjective Subjective Date of Service: 07/28/20 Interval History: Patient awake alert refusing her blood pressure medication, argues that she is not on antihypertensive medications and she does not have hypertension, requesting for eye cream for left eye dryness and itching, denies fever chills, complaining of pain right big toe. ROS General no fever, no chills [employer] no headache no dizziness CVS no chest pain, no palpitation GI no nausea, no vomiting, no diarrhea no urinary frequency no urgency Physical Exam Vital Signs: Vital Signs: Last Vital Signs Temp 99.4 F 07/28/20 15:43 Pulse 93 07/28/20 15:43 Resp 19 07/28/20 15:43 BP 145/62 H 07/28/20 15:43 Pulse Ox 98 07/28/20 15:43 Body Mass Index 23.1 General awake, alert, in no acute distress Left eye, dry scaly skin at the margins of upper and lower eyelid, patient legally blind Neck is supple no JVD. CVS regular rate rhythm, Respiratory lungs clear to auscultation, no respiratory distress, no wheeze, no rhonchi. Gastrointestinal abdomen soft, nontender, bowel sounds audible, no guarding , no rigidity. Extremities right great toe dry gangrene, no drainage, mild surrounding erythema Neuro nonfocal Skin no rash Objective Data Current Medications Generic Name Dose Route Start Last Admin Trade Name Harmanq PRN Reason Stop Dose Admin Acetaminophen 650 mg 07/27/20 22:23 07/27/20 22:41 Acetaminophen 325 Mg Tablet PO 650 mg Q6H PRN Administration Pain, Mild (Pain Scale 1-3) Amlodipine Besylate 10 mg 07/28/20 09:00 07/28/20 08:13 Amlodipine Besylate 5 Mg Tablet PO Not Given DAILY [facility] Protocol Ascorbic Acid 250 mg 07/28/20 09:00 07/28/20 08:26 Ascorbic Acid 250 Mg Tablet PO 250 mg BID [facility]UL Administration Aspirin 81 mg 07/28/20 09:00 07/28/20 08:25 Aspirin Enteric Coated 81 Mg Tablet. PO 81 mg DAILY [facility] Administration Atorvastatin Calcium 80 mg 07/27/20 22:23 07/27/20 23:32 Atorvastatin Calcium 80 Mg Tablet PO Not Given BEDTIME [facility] Atropine Sulfate 1 drop 07/27/20 22:23 07/28/20 15:06 Atropine Sulfate 1 % Ophth Jacki 2 Ml Bottle EYE-LEFT 1 drop TID [facility] Administration Bumetanide 0.5 mg 07/27/20 22:23 07/28/20 08:14 Bumetanide 1 Mg Tablet PO Not Given BID [facility] Protocol Calcitriol 0.25 mcg 07/28/20 09:00 07/28/20 11:56 Calcitriol 0.25 Mcg Capsule PO 0.25 mcg DAILY [facility] Administration Cyanocobalamin 1,000 mcg 08/15/20 09:00 Cyanocobalamin (Vitamin B-12) 1,000 Mcg/Ml Vial IM Q28D [facility] Docusate Sodium 100 mg 07/27/20 22:23 Docusate Sodium 100 Mg Capsule PO DAILY PRN Constipation Fluticasone Propionate 1 spray 07/28/20 09:00 07/28/20 13:56 Fluticasone Propionate Nasal 16 Gm [place] NOSTRIL-B Not Given DAILY [facility] Vancomycin HCl 750 mg/ Sodium 265 mls @ 265 mls/hr 07/29/20 17:00 Chloride IV Q24H [facility] Piperacillin Sod/Tazobactam 50 mls @ 100 mls/hr 07/28/20 01:00 07/28/20 09:02 Sod 3.375 gm/ Sodium Chloride IV Infused Q8H [facility] Infusion Insulin Human Lispro 0 unit 07/28/20 07:30 07/28/20 11:56 Insulin Lispro 100 Unit/Ml 3 Ml Vial SUBCUT Not Given QIDACHS [facility] Protocol Loratadine 10 mg 07/28/20 09:00 07/28/20 08:14 Loratadine 10 Mg Tablet PO Not Given DAILY [facility] Metoprolol Tartrate 50 mg 07/27/20 22:23 07/28/20 08:13 Metoprolol Tartrate 50 Mg Tablet PO Not Given BID [facility] Protocol Morphine Sulfate 4 mg 07/27/20 22:23 07/27/20 22:41 Morphine Sulfate 4 Mg/Ml Cartridge IVPUSH 4 mg Q4H PRN Administration Pain, Severe (Pain Scale 7-10) Non-Formulary Medication 1 drop 07/28/20 09:00 Timolol Maleate EYE-RIGHT DAILY [facility] Omeprazole 20 mg 07/28/20 06:30 07/28/20 05:52 Omeprazole 20 Mg Capsule.Dr PO 20 mg DAILY@0630 [facility] Administration Ondansetron HCl 4 mg 07/27/20 22:23 07/27/20 22:41 Ondansetron Hcl 4 Mg/2 Ml Vial IVPUSH 4 mg Q8H PRN Administration Nausea and Vomiting Pharmacy Consult 1 each 07/27/20 16:25 Consult Rx Perform Med Rec MISCELLANE ONCE PRN Consult order Pharmacy Consult 1 each 07/27/20 16:38 Consult Rx Vancomycin Dosing MISCELLANE DAILY PRN Consult order Polyethylene Glycol 17 gm 07/28/20 09:00 07/28/20 08:12 Polyethylene Glycol 3350 17 Gm Powd.Pack PO Not Given DAILY [facility] Prednisolone Acetate 1 drop 07/28/20 09:00 07/28/20 13:57 Prednisolone Acetate 1 % Oph Susp 5 Ml Drpbtl EYE-LEFT Not Given DAILY [facility] Sevelamer Carbonate 800 mg 07/28/20 17:00 Sevelamer Carbonate Tablet 800 Mg Tablet PO TIDWM [facility] Sodium Chloride 3 ml 07/28/20 00:00 07/28/20 08:32 0.9 % Sodium Chloride Flush 3 Ml Syringe IVFLUSH 3 ml QSHIFT [facility] Administration Vitamin D 50 mcg 07/28/20 09:00 07/28/20 08:25 Cholecalciferol (Vitamin D3) 25 Mcg Tablet PO 50 mcg DAILY [facility] Administration Labs CBC & Chem 7: 07/28/20 06:05 07/28/20 06:05 Labs: Laboratory Results - last 24 hr 07/27/20 07/27/20 07/27/20 17:10 17:10 17:10 WBC 9.0 RBC 3.18 L Hgb 8.8 L Hct 27.1 L MCV 85.2 MCH 27.7 MCHC 32.5 RDW 15.7 Plt Count 288 D MPV 9.5 Immature Gran % (Auto) 0.2 Neut % (Auto) 72.6 Lymph % (Auto) 17.6 L [place] % (Auto) 7.6 Eos % (Auto) 1.3 Baso % (Auto) 0.7 Lymph # (Auto) 1.6 [place] # (Auto) 0.7 Eos # (Auto) 0.1 Baso # (Auto) 0.1 Abs Immat Gran (auto) 0.02 Absolute Neuts (auto) 6.5 Absolute Nucleated RBC 0.000 Nucleated RBC % (auto) 0.0 ESR Sodium 137 Potassium 5.0 Chloride 109 H Carbon Dioxide 18 L Anion Gap 15 BUN 65 H Creatinine 3.10 H Estim Creat Clear Calc 14.5 Estimated GFR 15 POC Glucose Random Glucose 159 H Lactic Acid 0.7 Calcium 9.5 D Total Bilirubin 0.4 Direct Bilirubin < 0.2 AST 12 ALT < 6 Alkaline Phosphatase 85 C-Reactive Protein Total Protein 7.7 Albumin 3.7 COVID-19 ([facility]) COVID-19 Clin Com 07/27/20 07/28/20 07/28/20 17:10 06:05 06:05 WBC 9.8 RBC 2.83 L Hgb 7.9 L Hct 24.7 L MCV 87.3 MCH 27.9 MCHC 32.0 RDW 15.7 Plt Count 290 MPV 9.7 Immature Gran % (Auto) 0.3 Neut % (Auto) 56.7 Lymph % (Auto) 29.5 [place] % (Auto) 11.1 H Eos % (Auto) 1.7 Baso % (Auto) 0.7 Lymph # (Auto) 2.9 [place] # (Auto) 1.1 Eos # (Auto) 0.2 Baso # (Auto) 0.1 Abs Immat Gran (auto) 0.03 Absolute Neuts (auto) 5.6 Absolute Nucleated RBC 0.000 Nucleated RBC % (auto) 0.0 ESR Sodium 140 Potassium 5.2 H Chloride 111 H Carbon Dioxide 18 L Anion Gap 16 BUN 64 H Creatinine 3.22 H Estim Creat Clear Calc 13.9 Estimated GFR 14 POC Glucose Random Glucose 105 Lactic Acid Calcium 9.2 Total Bilirubin Direct Bilirubin AST ALT Alkaline Phosphatase C-Reactive Protein 0.20 Total Protein Albumin COVID-19 ([facility]) Negative COVID-19 Clin Com See Note 07/28/20 07/28/20 07/28/20 06:06 07:07 11:18 WBC RBC Hgb Hct MCV MCH MCHC RDW Plt Count MPV Immature Gran % (Auto) Neut % (Auto) Lymph % (Auto) [place] % (Auto) Eos % (Auto) Baso % (Auto) Lymph # (Auto) [place] # (Auto) Eos # (Auto) Baso # (Auto) Abs Immat Gran (auto) Absolute Neuts (auto) Absolute Nucleated RBC Nucleated RBC % (auto) ESR 95 H Sodium Potassium Chloride Carbon Dioxide Anion Gap BUN Creatinine Estim Creat Clear Calc Estimated GFR POC Glucose 94 85 Random Glucose Lactic Acid Calcium Total Bilirubin Direct Bilirubin AST ALT Alkaline Phosphatase C-Reactive Protein Total Protein Albumin COVID-19 ([facility]) COVID-19 Clin Com 07/28/20 16:07 WBC RBC Hgb Hct MCV MCH MCHC RDW Plt Count MPV Immature Gran % (Auto) Neut % (Auto) Lymph % (Auto) [place] % (Auto) Eos % (Auto) Baso % (Auto) Lymph # (Auto) [place] # (Auto) Eos # (Auto) Baso # (Auto) Abs Immat Gran (auto) Absolute Neuts (auto) Absolute Nucleated RBC Nucleated RBC % (auto) ESR Sodium Potassium Chloride Carbon Dioxide Anion Gap BUN Creatinine Estim Creat Clear Calc Estimated GFR POC Glucose 140 H Random Glucose Lactic Acid Calcium Total Bilirubin Direct Bilirubin AST ALT Alkaline Phosphatase C-Reactive Protein Total Protein Albumin COVID-19 ([facility]) COVID-19 Clin Com Quality Stroke Does the patient have a stroke diagnosis?: No VTE Prior VTE?: No VTE Risk Level:: Medical - moderate - high VTE Device Contraindication: N/A - Device Ordered VTE Drug Contraindication: Treatment Not Indicated Assessment and Plan (1) Osteomyelitis of great toe of right foot: Status: Acute (2) PAD (peripheral artery disease): Status: Acute Assessment and Plan: 75-year-old female a past medical history of diabetes, hypertension, osteomyelitis of the right great toe who presents to the hospital with nonhealing as well as gangrene and was smelly discharge from right great toe. # acute osteomyelitis of the right great toe with significant peripheral vascular disease recently admitted in April and underwent extensive workup. - afebrile, no leukocytosis, patient was treated for the same toe in April with antibiotic ertapenem but returns today sent by wound clinic for gangrenous toe - continue IV Vanco and IV Zosyn day 1, patient seen by Dr. Blood he recommend fem-fem bypass left to right, but prior to that he recommend cardiac catheterization due to history of multivessel coronary artery disease therefore he recommend Cardiology consultation and transfer to [facility] once she is stable from cardiac standpoint he will perform the surgery and subsequent toe amputation. ESR 95 # severe constipation - continue bowel regimen # normocytic anemia - patient chronically anemic, no evidence of acute bleed, likely due to acute infection hold transfusion - follow CBC # hypertension - patient refusing medication, patient had similar behavior during last hospitalization and a competency eval was obtained patient seen by psych and they felt that patient is competent to make decision Inform patient about consequences of high blood pressure but she adamantly continue to refuse # diabetes mellitus - stable blood sugars, continue low-dose sliding scale insulin, patient takes glyburide at home, continue diabetic diet # left eye upper and lower eyelid dryness and rash likely eczema question related to chronic use of eye drops will use emolient and if not better consider steroid cream. DVT prophylaxis: SCDs in the setting of possible intervention by surgery for osteomyelitis
--- NOTE | 2020-07-28 16:33 | P.CNID_ITS ---
History of Present Illness Data of Consult Service Date: 07/28/20 Requesting physician: Michaelle Knapp Primary Care Provider: Nonstaff Physician HPI Reason for consult: right toe redness,chills She presents with weakness and chills for a day She has had right great toe with necrosis and has seen Wound Center necrosis present several days Review of Systems Review of Systems: Yes Unobtainable due to mental status PMFSH Past Medical History Medical History Anemia Blind CKD (chronic kidney disease) Coronary artery disease Diabetes Diabetic foot infection Essential hypertension PAD (peripheral artery disease) UTI due to Klebsiella species Family History Family history: reviewed and not pertinent Social History Social History Household Members: None Housing: Long Term Do you presently have visiting nurse or other home services: No Alcohol intake: unknown Patient Tobacco Use Status: Never used Tobacco Smoked in Last 30 Days: No Use of substances other than those prescribed or required for medical reasons: No Currently Displaying Signs/Symptoms of Drug Intoxication Withdrawal: No Have you been hit, kicked, punched, or otherwise hurt by someone within the past year? If so, by whom?: No Do you feel safe in your current relationship?: No Current Relationship Is there a partner from a previous relationship who is making you feel unsafe now?: No Are you made to feel afraid or neglected: No Advance Directives: No Advance Directives Information Provided: Yes Do you have thoughts of harming others: None Do you have a plan to hurt others: No Plan Recently lost weight without trying: Yes How much weight loss: 24-33 pounds Nutrition Risks: No Nutritional Risk service: No Current occupational status: disabled Meds Allergies Allergy/AdvReac Type Severity Reaction Status Date / Time No Known Allergies Allergy Verified 06/15/20 16:02 [No Known Allergies*] Active Medications: Current Medications Generic Name Dose Route Start Last Admin Trade Name Freq PRN Reason Stop Dose Admin Acetaminophen 650 mg 07/27/20 22:23 07/27/20 22:41 Acetaminophen 325 Mg Tablet PO 650 mg Q6H PRN Administration Pain, Mild (Pain Scale 1-3) Amlodipine Besylate 10 mg 07/28/20 09:00 07/28/20 08:13 Amlodipine Besylate 5 Mg Tablet PO Not Given DAILY [facility] Protocol Ascorbic Acid 250 mg 07/28/20 09:00 07/28/20 08:26 Ascorbic Acid 250 Mg Tablet PO 250 mg BID [facility] Administration Aspirin 81 mg 07/28/20 09:00 07/28/20 08:25 Aspirin Enteric Coated 81 Mg Tablet.Dr PO 81 mg DAILY [facility] Administration Atorvastatin Calcium 80 mg 07/27/20 22:23 07/27/20 23:32 Atorvastatin Calcium 80 Mg Tablet PO Not Given BEDTIME [facility] Atropine Sulfate 1 drop 07/27/20 22:23 07/28/20 15:06 Atropine Sulfate 1 % Ophth Jacki 2 Ml Bottle EYE-LEFT 1 drop TID [facility] Administration Bumetanide 0.5 mg 07/27/20 22:23 07/28/20 08:14 Bumetanide 1 Mg Tablet PO Not Given BID [facility] Protocol Calcitriol 0.25 mcg 07/28/20 09:00 07/28/20 11:56 Calcitriol 0.25 Mcg Capsule PO 0.25 mcg DAILY [facility] Administration Cyanocobalamin 1,000 mcg 08/15/20 09:00 Cyanocobalamin (Vitamin B-12) 1,000 Mcg/Ml Vial IM Q28D [facility] Docusate Sodium 100 mg 07/27/20 22:23 Docusate Sodium 100 Mg Capsule PO DAILY PRN Constipation Fluticasone Propionate 1 spray 07/28/20 09:00 07/28/20 13:56 Fluticasone Propionate Nasal 16 Gm [place] NOSTRIL-B Not Given DAILY [facility] Vancomycin HCl 750 mg/ Sodium 265 mls @ 265 mls/hr 07/29/20 17:00 Chloride IV Q24H [facility] Piperacillin Sod/Tazobactam 50 mls @ 100 mls/hr 07/28/20 01:00 07/28/20 09:02 Sod 3.375 gm/ Sodium Chloride IV Infused Q8H [facility] Infusion Insulin Human Lispro 0 unit 07/28/20 07:30 07/28/20 11:56 Insulin Lispro 100 Unit/Ml 3 Ml Vial SUBCUT Not Given QIDACHS [facility] Protocol Loratadine 10 mg 07/28/20 09:00 07/28/20 08:14 Loratadine 10 Mg Tablet PO Not Given DAILY [facility] Metoprolol Tartrate 50 mg 07/27/20 22:23 07/28/20 08:13 Metoprolol Tartrate 50 Mg Tablet PO Not Given BID [facility] Protocol Morphine Sulfate 4 mg 07/27/20 22:23 07/27/20 22:41 Morphine Sulfate 4 Mg/Ml Cartridge IVPUSH 4 mg Q4H PRN Administration Pain, Severe (Pain Scale 7-10) Non-Formulary Medication 1 drop 07/28/20 09:00 Timolol Maleate EYE-RIGHT DAILY [facility] Omeprazole 20 mg 07/28/20 06:30 07/28/20 05:52 Omeprazole 20 Mg Capsule.Dr PO 20 mg DAILY@0630 [facility] Administration Ondansetron HCl 4 mg 07/27/20 22:23 07/27/20 22:41 Ondansetron Hcl 4 Mg/2 Ml Vial IVPUSH 4 mg Q8H PRN Administration Nausea and Vomiting Pharmacy Consult 1 each 07/27/20 16:25 Consult Rx Perform Med Rec MISCELLANE ONCE PRN Consult order Pharmacy Consult 1 each 07/27/20 16:38 Consult Rx Vancomycin Dosing MISCELLANE DAILY PRN Consult order Polyethylene Glycol 17 gm 07/28/20 09:00 07/28/20 08:12 Polyethylene Glycol 3350 17 Gm Powd.Pack PO Not Given DAILY [facility] Prednisolone Acetate 1 drop 07/28/20 09:00 07/28/20 13:57 Prednisolone Acetate 1 % Oph Susp 5 Ml Drpbtl EYE-LEFT Not Given DAILY [facility] Sevelamer Carbonate 800 mg 07/28/20 17:00 Sevelamer Carbonate Tablet 800 Mg Tablet PO TIDWM [facility] Sodium Chloride 3 ml 07/28/20 00:00 07/28/20 08:32 0.9 % Sodium Chloride Flush 3 Ml Syringe IVFLUSH 3 ml QSHIFT [facility] Administration Vitamin D 50 mcg 07/28/20 09:00 07/28/20 08:25 Cholecalciferol (Vitamin D3) 25 Mcg Tablet PO 50 mcg DAILY [facility] Administration Home Medications Medication Instructions Recorded Confirmed Last Taken Type atropine 1 drp OPHTHALMIC-LEFT TID 04/15/20 07/27/20 Unknown History prednisolone acetate 1 drp OPHTHALMIC-LEFT DAILY 04/15/20 07/27/20 Unknown History timolol maleate 1 drp OPHTHALMIC-RIGHT DAILY 04/15/20 07/27/20 Unknown History acetaminophen 1,000 mg PO TID PRN 07/27/20 07/27/20 Unknown History aspirin 81 mg PO DAILY 07/27/20 07/27/20 Unknown History bumetanide 0.5 mg PO BID 07/27/20 07/27/20 Unknown History calcitriol 0.25 mcg PO DAILY 07/27/20 07/27/20 Unknown History cholecalciferol (vitamin D3) 50 mcg PO DAILY 07/27/20 07/27/20 Unknown History cyanocobalamin (vitamin B-12) 1,000 mcg IM QMONTH 07/27/20 07/27/20 07/18/20 History fexofenadine 60 mg PO DAILY 07/27/20 07/27/20 Unknown History fluticasone propionate [Flonase] 1 spray INTRANASAL DAILY 07/27/20 07/27/20 Unknown History glyburide 5 mg PO DAILY 07/27/20 07/27/20 Unknown History sevelamer HCl 800 mg PO TID 07/27/20 07/27/20 Unknown History vitamin E 400 unit PO DAILY 07/27/20 07/27/20 Unknown History Physical Exam Vital Signs: Vital Signs: Last Vital Signs Temp 99.4 F 07/28/20 15:43 Pulse 93 07/28/20 15:43 Resp 19 07/28/20 15:43 BP 145/62 H 07/28/20 15:43 Pulse Ox 98 07/28/20 15:43 Body Mass Index 23.1 Const: General: cooperative HENMT: Head: Yes normal to inspection Mouth: Normal oral and palatal mucosa present Resp: Effort & Inspection: normal respiratory effort Cardio: Rate: regular rate Rhythm: regular rhythm GI: Palpation (GI): Soft to palpation and nontender Extrem: Other: right great toe necrosis Results Labs CBC & Chem 7: 07/28/20 06:05 07/28/20 06:05 Labs: Short CBC 07/27/20 07/28/20 Range/Units 17:10 06:05 WBC 9.0 9.8 (4.8-10.8) X10*3/uL Hgb 8.8 L 7.9 L (12.0-16.0) g/dl Hct 27.1 L 24.7 L (37-47) % Plt Count 288 D 290 (160-400) X10*3/uL BMP 07/27/20 07/28/20 17:10 06:05 Sodium 137 140 Potassium 5.0 5.2 H Chloride 109 H 111 H Carbon Dioxide 18 L 18 L BUN 65 H 64 H Creatinine 3.10 H 3.22 H Calcium 9.5 D 9.2 Liver Function 07/27/20 Range/Units 17:10 Total Bilirubin 0.4 (0.0-1.0) mg/dL Direct Bilirubin < 0.2 (0.0-0.5) mg/dL AST 12 (5-31) U/L ALT < 6 (0-31) U/L Alkaline Phosphatase 85 (39-117) U/L Albumin 3.7 (3.5-5.0) g/dL Assessment and Plan (1) Osteomyelitis of great toe of right foot: Status: Acute She has area of gangrene ,demarcated She has chills and reported anorexia There is concern over bacteremia,staph or other,including gram negative Suggest Continue IV Vancomycin and Zosyn If not bacteremic stop IV antibiotics and amputation of affected areas of toe
[2020-07-28 19:42] VITALS: BP 156/64; PULSE 96; RESP 19; TEMP 36.6; O2SAT 98
[2020-07-28 20:19] LABS: Glucose, Whole Blood 188 mg/dL (60-115)
[2020-07-28] MEDS: Acetaminophen 325 MG TABLET 650 MG PO (20:49)
[2020-07-29] VITALS (7 sets, daily range): BP systolic 140–192; BP diastolic 60–77; PULSE 84–99; RESP 14–18; TEMP 36.2–36.8; O2SAT 97–99
[2020-07-29] MEDS: 0.9 % Sodium Chloride Flush 3 ML SYRINGE IVFLUSH ×3 (00:23→16:24)
[2020-07-29] MEDS: Piperacillin Sodium/Tazobactam 3.375 GM in 0.9 % Sodium Chloride 50 ML IV ×3 (01:51→16:25)
[2020-07-29] MEDS: Acetaminophen 325 MG TABLET 650 MG PO (06:01)
[2020-07-29] MEDS: Omeprazole 20 MG CAPSULE.DR PO (06:01)
[2020-07-29 07:39] LABS: Glucose, Whole Blood 86 mg/dL (60-115)
[2020-07-29] MEDS: Cholecalciferol (Vitamin D3) 25 MCG TABLET 50 MCG PO (08:53)
[2020-07-29] MEDS: Aspirin Enteric Coated 81 MG TABLET.DR PO (08:53)
[2020-07-29] MEDS: Ascorbic Acid 250 MG TABLET PO (08:53)
[2020-07-29] MEDS: calcitrioL 0.25 MCG CAPSULE PO (08:58)
[2020-07-29] MEDS: Atropine Sulfate 1 % Ophth Sol 2 ML BOTTLE 1 DROP EYE-LEFT ×3 (08:58→21:51)
[2020-07-29] MEDS: prednisoLONE Acetate 1 % Oph Susp 5 ML DRPBTL 1 DROP EYE-LEFT (08:59)
[2020-07-29 11:17] LABS: Anion Gap 14 (12-20); Blood Urea Nitrogen 69 mg/dL (9-16); Calcium 8.9 mg/dL (8.4-10.2); Carbon Dioxide 20 mmol/L (22-29); Chloride 108 mmol/L (96-108); Creatinine Clr Calc Pharmacy 12.8; Estimated Glomerular Filt Rate 13; Glucose Random 149 mg/dL (60-115); Potassium 4.6 mmol/L (3.3-5.1); Sodium 137 mmol/L (135-145)
[2020-07-29 11:24] LABS: Glucose, Whole Blood 153 mg/dL (60-115)
--- NOTE | 2020-07-29 11:37 | PC.NURSE ---
Dr Bradshaw aware opf pt refusal for certain medications today
--- NOTE | 2020-07-29 11:44 | PM.CNCAR ---
History of Present Illness History of Present Illness Date of Service: 07/29/20 Consult reason: pre-op evaluation Chief complaint: Osteo Narrative: This is a cardiology consultation regarding preoperative risk stratification for vascular surgery. She was previously seen by our colleagues about 3 months ago. At that time, based on stress test, she was thought to have possibly multivessel coronary artery disease. However it does not appear that she underwent any further workup due to ongoing medical issues at that time. Now she is admitted again with nonhealing ulcer in her lower extremity and we have been asked to once again see her in this regard. Patient denies any known history of coronary disease myocardial infarction. She has visual impairment but states that she still lives alone. Otherwise within limits of her activity, she has not noticed any cardiac symptoms like angina or shortness of breath or in fact anything else at all. Review of Systems Review of Systems: Yes all other systems are reviewed and are negative Cardiovascular: Cardiovascular: Reports as per HPI, Reports no additional cardiovascular complaints, Denies acrocyanosis, Denies cool extremities, Denies painful fingertips, Denies chest pain, Denies chest pain at rest, Denies diaphoresis, Denies syncope, Denies irregular heart rhythm, Denies claudication, Denies leg edema, Denies lightheadedness, Denies palpitations and Denies dyspnea Respiratory: Respiratory: Denies dyspnea Neurologic: Denies syncope Endocrine: Endocrine: Denies palpitations PMFSH Past Medical History Medical History Anemia Blind CKD (chronic kidney disease) Coronary artery disease Diabetes Diabetic foot infection Essential hypertension PAD (peripheral artery disease) UTI due to Klebsiella species Family History Family history: reviewed and not pertinent Social History Social History Household Members: None Housing: Senior Living Do you presently have visiting nurse or other home services: No Alcohol intake: unknown Patient Tobacco Use Status: Never used Tobacco Smoked in Last 30 Days: No Use of substances other than those prescribed or required for medical reasons: No Currently Displaying Signs/Symptoms of Drug Intoxication Withdrawal: No Have you been hit, kicked, punched, or otherwise hurt by someone within the past year? If so, by whom?: No Do you feel safe in your current relationship?: No Current Relationship Is there a partner from a previous relationship who is making you feel unsafe now?: No Are you made to feel afraid or neglected: No Advance Directives: No Advance Directives Information Provided: Yes Do you have thoughts of harming others: None Do you have a plan to hurt others: No Plan Recently lost weight without trying: Yes How much weight loss: 24-33 pounds Nutrition Risks: No Nutritional Risk service: No Current occupational status: disabled Meds Allergies Allergy/AdvReac Type Severity Reaction Status Date / Time No Known Allergies Allergy Verified 06/15/20 16:02 [No Known Allergies*] Active Medications: Current Medications Generic Name Dose Route Start Last Admin Trade Name Freq PRN Reason Stop Dose Admin Acetaminophen 650 mg 07/27/20 22:23 07/29/20 06:01 Acetaminophen 325 Mg Tablet PO 650 mg Q6H PRN Administration Pain, Mild (Pain Scale 1-3) Amlodipine Besylate 10 mg 07/28/20 09:00 07/29/20 08:57 Amlodipine Besylate 5 Mg Tablet PO Not Given DAILY [facility] Protocol Artificial Tears 2 drop 07/29/20 13:00 Artificial Tears 15 Ml Drops EYE-LEFT QID RAUL Ascorbic Acid 250 mg 07/28/20 09:00 07/29/20 08:53 Ascorbic Acid 250 Mg Tablet PO 250 mg BID RAUL Administration Aspirin 81 mg 07/28/20 09:00 07/29/20 08:53 Aspirin Enteric Coated 81 Mg Tablet.Dr PO 81 mg DAILY [facility] Administration Atorvastatin Calcium 80 mg 07/27/20 22:23 07/28/20 20:56 Atorvastatin Calcium 80 Mg Tablet PO Not Given BEDTIME [facility] Atropine Sulfate 1 drop 07/27/20 22:23 07/29/20 08:58 Atropine Sulfate 1 % Ophth Jacki 2 Ml Bottle EYE-LEFT 1 drop TID RAUL Administration Bumetanide 0.5 mg 07/27/20 22:23 07/29/20 08:57 Bumetanide 1 Mg Tablet PO Not Given BID [facility] Protocol Calcitriol 0.25 mcg 07/28/20 09:00 07/29/20 08:58 Calcitriol 0.25 Mcg Capsule PO 0.25 mcg DAILY [facility] Administration Cyanocobalamin 1,000 mcg 08/15/20 09:00 Cyanocobalamin (Vitamin B-12) 1,000 Mcg/Ml Vial IM Q28D [facility] Docusate Sodium 100 mg 07/27/20 22:23 Docusate Sodium 100 Mg Capsule PO DAILY PRN Constipation Erythromycin 1 cm 07/29/20 13:00 Erythromycin Base 0.5% Oph Oin 1 Gm Tube EYE-LEFT QID [facility] Fluticasone Propionate 1 spray 07/28/20 09:00 07/29/20 08:58 Fluticasone Propionate Nasal 16 Gm [place] NOSTRIL-B Not Given DAILY [facility] Vancomycin HCl 750 mg/ Sodium 265 mls @ 265 mls/hr 07/29/20 17:00 Chloride IV Q24H [facility] Piperacillin Sod/Tazobactam 50 mls @ 100 mls/hr 07/28/20 01:00 07/29/20 09:24 Sod 3.375 gm/ Sodium Chloride IV Infused Q8H [facility] Infusion Insulin Human Lispro 0 unit 07/28/20 07:30 07/29/20 11:36 Insulin Lispro 100 Unit/Ml 3 Ml Vial SUBCUT Not Given QIDACHS [facility] Protocol Loratadine 10 mg 07/28/20 09:00 07/29/20 08:54 Loratadine 10 Mg Tablet PO Not Given DAILY [facility] Metoprolol Tartrate 50 mg 07/27/20 22:23 07/29/20 08:55 Metoprolol Tartrate 50 Mg Tablet PO Not Given BID [facility] Protocol Morphine Sulfate 4 mg 07/27/20 22:23 07/27/20 22:41 Morphine Sulfate 4 Mg/Ml Cartridge IVPUSH 4 mg Q4H PRN Administration Pain, Severe (Pain Scale 7-10) Non-Formulary Medication 1 drop 07/28/20 09:00 Timolol Maleate EYE-RIGHT DAILY [facility] Omeprazole 20 mg 07/28/20 06:30 07/29/20 06:01 Omeprazole 20 Mg Capsule.Dr PO 20 mg DAILY@0630 [facility] Administration Ondansetron HCl 4 mg 07/27/20 22:23 07/27/20 22:41 Ondansetron Hcl 4 Mg/2 Ml Vial IVPUSH 4 mg Q8H PRN Administration Nausea and Vomiting Pharmacy Consult 1 each 07/27/20 16:25 Consult Rx Perform Med Rec MISCELLANE ONCE PRN Consult order Pharmacy Consult 1 each 07/27/20 16:38 Consult Rx Vancomycin Dosing MISCELLANE DAILY PRN Consult order Polyethylene Glycol 17 gm 07/28/20 09:00 07/29/20 08:59 Polyethylene Glycol 3350 17 Gm Powd.Pack PO Not Given DAILY [facility] Prednisolone Acetate 1 drop 07/28/20 09:00 07/29/20 08:59 Prednisolone Acetate 1 % Oph Susp 5 Ml Drpbtl EYE-LEFT 1 drop DAILY [facility] Administration Sevelamer Carbonate 800 mg 07/28/20 17:00 07/29/20 11:36 Sevelamer Carbonate Tablet 800 Mg Tablet PO Not Given TIDWM [facility] Sodium Chloride 3 ml 07/28/20 00:00 07/29/20 08:51 0.9 % Sodium Chloride Flush 3 Ml Syringe IVFLUSH 3 ml QSHIFT [facility] Administration Vitamin D 50 mcg 07/28/20 09:00 07/29/20 08:53 Cholecalciferol (Vitamin D3) 25 Mcg Tablet PO 50 mcg DAILY [facility] Administration Home Medications Medication Instructions Recorded Confirmed Last Taken Type atropine 1 drp OPHTHALMIC-LEFT TID 04/15/20 07/27/20 Unknown History prednisolone acetate 1 drp OPHTHALMIC-LEFT DAILY 04/15/20 07/27/20 Unknown History timolol maleate 1 drp OPHTHALMIC-RIGHT DAILY 04/15/20 07/27/20 Unknown History acetaminophen 1,000 mg PO TID PRN 07/27/20 07/27/20 Unknown History aspirin 81 mg PO DAILY 07/27/20 07/27/20 Unknown History bumetanide 0.5 mg PO BID 07/27/20 07/27/20 Unknown History calcitriol 0.25 mcg PO DAILY 07/27/20 07/27/20 Unknown History cholecalciferol (vitamin D3) 50 mcg PO DAILY 07/27/20 07/27/20 Unknown History cyanocobalamin (vitamin B-12) 1,000 mcg IM QMONTH 07/27/20 07/27/20 07/18/20 History fexofenadine 60 mg PO DAILY 07/27/20 07/27/20 Unknown History fluticasone propionate [Flonase] 1 spray INTRANASAL DAILY 07/27/20 07/27/20 Unknown History glyburide 5 mg PO DAILY 07/27/20 07/27/20 Unknown History sevelamer HCl 800 mg PO TID 07/27/20 07/27/20 Unknown History vitamin E 400 unit PO DAILY 07/27/20 07/27/20 Unknown History Physical Exam Vital Signs: Vital Signs: Last Vital Signs Temp 98.2 F 07/29/20 08:00 Pulse 84 07/29/20 08:00 Resp 18 07/29/20 08:00 BP 157/66 H 07/29/20 08:00 Pulse Ox 99 07/29/20 08:00 Body Mass Index 23.1 Const: General: cooperative and no acute distress HENMT: Other: Unremarkable Neck: Neck: Yes normal visual inspection Chest: Chest palpation & inspection: normal inspection of the chest Resp: Auscultation: clear to auscultation bilaterally, no crackles and no wheezes Cardio: Jugular venous distension: no JVD Palpation: normal PMI Heart sounds: S1 normal heart sound present, S2 normal heart sound present, no gallops, no murmurs and no rubs GI: Palpation (GI): Soft to palpation Back/Spine/Pelvis: Other: unremarkable Skin: General skin exam: no rashes or lesions noted Neuro: Cranial nerves: Yes Other cranial nerve findings present Extrem: General: Yes no clubbing, cyanosis or edema Psych: Mental Status: other Results Labs and Meds Result diagrams: 07/28/20 06:05 07/29/20 10:28 Lab results: Laboratory Results - last 24 hr 07/28/20 07/28/20 07/29/20 16:07 20:05 07:35 Sodium Potassium Chloride Carbon Dioxide Anion Gap BUN Creatinine Estim Creat Clear Calc Estimated GFR POC Glucose 140 H 188 H 86 Random Glucose Calcium 07/29/20 07/29/20 10:28 11:20 Sodium 137 Potassium 4.6 Chloride 108 Carbon Dioxide 20 L Anion Gap 14 BUN 69 H Creatinine 3.49 H Estim Creat Clear Calc 12.8 Estimated GFR 13 POC Glucose 153 H Random Glucose 149 H D Calcium 8.9 ECG Attestation: I personally reviewed and interpreted this ECG as follows: Interpretation: EKG with sinus tachycardia, 102/Min; left anterior fascicular block; cannot exclude old anterior infarct. Overall, similar to prior. Assessment and Plan (1) Preoperative cardiovascular examination: Status: Acute (2) Abnormal myocardial perfusion study: Status: Acute (3) PAD (peripheral artery disease): Status: Acute (4) Osteomyelitis of great toe of right foot: Status: Acute Labs reviewed. Hemoglobin 7.9. White cells 9.8. Platelets 290. BUN is 69. Creatinine is 3.49. Potassium 4.6. Creatinine is overall have been high in the last few months. Echocardiogram with LVEF of 60-65% but no obvious wall motion abnormalities. There was moderate mitral regurgitation. Myocardial perfusion imaging study showed moderate-sized inferior ischemia and transient ischemic dilatation. Overall, there is suspicion for multivessel coronary artery disease. However when I talked to her about cardiac catheterization does not appear that she is too inclined for it. There is a clear risk of contrast induced nephropathy. Overall, from the vascular standpoint, she will be at high risk for any vascular procedures. Will follow up with you. Procedures Date of Service Date of Service: 07/29/20
[2020-07-29] MEDS: Artificial Tears 15 ML DROPS 2 DROP EYE-LEFT ×3 (13:55→21:51)
[2020-07-29] MEDS: Erythromycin Base 0.5% Oph Oin 1 GM TUBE 1 CM EYE-LEFT ×3 (13:55→21:48)
--- NOTE | 2020-07-29 14:36 | P.PNIM_ITS ---
Subjective Subjective Date of Service: 07/29/20 Interval History: painful R great toe R eyelid itching denies chest pain not willing to undergo HD Physical Exam Vital Signs: Vital Signs: Last Vital Signs Temp 98.3 F 07/29/20 12:00 Pulse 89 07/29/20 12:00 Resp 18 07/29/20 12:00 BP 140/60 H 07/29/20 12:00 Pulse Ox 98 07/29/20 12:00 Body Mass Index 23.1 Gen: in NAD, legally blind HEENT: edema and scaly discharge of L upper and lower eyelids, sclera anicteric, moist mucus membranes Neck: supple Lungs: clear to auscultation bilaterally Heart: regular rate and rhythm, no murmurs Abd: soft, non-tender, non-distended Ext: R great toe with dry gangrene, no proximal erythema or purulence Skin: warm/well-perfused Neuro: alert and oriented x3, no focal findings Psych: appropriate affect Objective Data Current Medications Generic Name Dose Route Start Last Admin Trade Name Harmanq PRN Reason Stop Dose Admin Acetaminophen 650 mg 07/27/20 22:23 07/29/20 06:01 Acetaminophen 325 Mg Tablet PO 650 mg Q6H PRN Administration Pain, Mild (Pain Scale 1-3) Amlodipine Besylate 10 mg 07/28/20 09:00 07/29/20 08:57 Amlodipine Besylate 5 Mg Tablet PO Not Given DAILY [facility] Protocol Artificial Tears 2 drop 07/29/20 13:00 07/29/20 13:55 Artificial Tears 15 Ml Drops EYE-LEFT 2 drop QID [facility] Administration Ascorbic Acid 250 mg 07/28/20 09:00 07/29/20 08:53 Ascorbic Acid 250 Mg Tablet PO 250 mg BID [facility]UL Administration Aspirin 81 mg 07/28/20 09:00 07/29/20 08:53 Aspirin Enteric Coated 81 Mg Tablet.Dr PO 81 mg DAILY [facility] Administration Atorvastatin Calcium 80 mg 07/27/20 22:23 07/28/20 20:56 Atorvastatin Calcium 80 Mg Tablet PO Not Given BEDTIME [facility] Atropine Sulfate 1 drop 07/27/20 22:23 07/29/20 08:58 Atropine Sulfate 1 % Ophth Jacki 2 Ml Bottle EYE-LEFT 1 drop TID [facility] Administration Bumetanide 0.5 mg 07/27/20 22:23 07/29/20 08:57 Bumetanide 1 Mg Tablet PO Not Given BID [facility] Protocol Calcitriol 0.25 mcg 07/28/20 09:00 07/29/20 08:58 Calcitriol 0.25 Mcg Capsule PO 0.25 mcg DAILY [facility] Administration Cyanocobalamin 1,000 mcg 08/15/20 09:00 Cyanocobalamin (Vitamin B-12) 1,000 Mcg/Ml Vial IM Q28D [facility] Docusate Sodium 100 mg 07/27/20 22:23 Docusate Sodium 100 Mg Capsule PO DAILY PRN Constipation Erythromycin 1 cm 07/29/20 13:00 07/29/20 13:55 Erythromycin Base 0.5% Oph Oin 1 Gm Tube EYE-LEFT 1 cm QID [facility] Administration Fluticasone Propionate 1 spray 07/28/20 09:00 07/29/20 08:58 Fluticasone Propionate Nasal 16 Gm [place] NOSTRIL-B Not Given DAILY [facility] Vancomycin HCl 750 mg/ Sodium 265 mls @ 265 mls/hr 07/29/20 17:00 Chloride IV Q24H [facility] Piperacillin Sod/Tazobactam 50 mls @ 100 mls/hr 07/28/20 01:00 07/29/20 09:24 Sod 3.375 gm/ Sodium Chloride IV Infused Q8H [facility] Infusion Insulin Human Lispro 0 unit 07/28/20 07:30 07/29/20 11:36 Insulin Lispro 100 Unit/Ml 3 Ml Vial SUBCUT Not Given QIDACHS [facility] Protocol Loratadine 10 mg 07/28/20 09:00 07/29/20 08:54 Loratadine 10 Mg Tablet PO Not Given DAILY [facility] Metoprolol Tartrate 50 mg 07/27/20 22:23 07/29/20 08:55 Metoprolol Tartrate 50 Mg Tablet PO Not Given BID [facility] Protocol Morphine Sulfate 4 mg 07/27/20 22:23 07/27/20 22:41 Morphine Sulfate 4 Mg/Ml Cartridge IVPUSH 4 mg Q4H PRN Administration Pain, Severe (Pain Scale 7-10) Non-Formulary Medication 1 drop 07/28/20 09:00 Timolol Maleate EYE-RIGHT DAILY [facility] Omeprazole 20 mg 07/28/20 06:30 07/29/20 06:01 Omeprazole 20 Mg Capsule.Dr PO 20 mg DAILY@0630 [facility] Administration Ondansetron HCl 4 mg 07/27/20 22:23 07/27/20 22:41 Ondansetron Hcl 4 Mg/2 Ml Vial IVPUSH 4 mg Q8H PRN Administration Nausea and Vomiting Pharmacy Consult 1 each 07/27/20 16:25 Consult Rx Perform Med Rec MISCELLANE ONCE PRN Consult order Pharmacy Consult 1 each 07/27/20 16:38 Consult Rx Vancomycin Dosing MISCELLANE DAILY PRN Consult order Polyethylene Glycol 17 gm 07/28/20 09:00 07/29/20 08:59 Polyethylene Glycol 3350 17 Gm Powd.Pack PO Not Given DAILY [facility] Prednisolone Acetate 1 drop 07/28/20 09:00 07/29/20 08:59 Prednisolone Acetate 1 % Oph Susp 5 Ml Drpbtl EYE-LEFT 1 drop DAILY [facility] Administration Sevelamer Carbonate 800 mg 07/28/20 17:00 07/29/20 11:36 Sevelamer Carbonate Tablet 800 Mg Tablet PO Not Given TIDWM [facility] Sodium Chloride 3 ml 07/28/20 00:00 07/29/20 08:51 0.9 % Sodium Chloride Flush 3 Ml Syringe IVFLUSH 3 ml QSHIFT [facility] Administration Vitamin D 50 mcg 07/28/20 09:00 07/29/20 08:53 Cholecalciferol (Vitamin D3) 25 Mcg Tablet PO 50 mcg DAILY [facility] Administration Labs CBC & Chem 7: 07/28/20 06:05 07/29/20 10:28 Labs: Laboratory Results - last 24 hr 07/28/20 07/28/20 07/29/20 16:07 20:05 07:35 Sodium Potassium Chloride Carbon Dioxide Anion Gap BUN Creatinine Estim Creat Clear Calc Estimated GFR POC Glucose 140 H 188 H 86 Random Glucose Calcium 07/29/20 07/29/20 10:28 11:20 Sodium 137 Potassium 4.6 Chloride 108 Carbon Dioxide 20 L Anion Gap 14 BUN 69 H Creatinine 3.49 H Estim Creat Clear Calc 12.8 Estimated GFR 13 POC Glucose 153 H Random Glucose 149 H D Calcium 8.9 Microbiology Microbiology Results: Microbiology 07/27/20 17:11 Blood Culture - Preliminary Blood - Venous No growth after 24 hours. 07/27/20 17:10 Blood Culture - Preliminary Blood - Venous No growth after 24 hours. Quality Stroke Does the patient have a stroke diagnosis?: No VTE Prior VTE?: No VTE Risk Level:: Medical - moderate - high VTE Device Contraindication: N/A - Device Ordered VTE Drug Contraindication: Treatment Not Indicated Assessment and Plan (1) Osteomyelitis of great toe of right foot: Status: Acute (2) PAD (peripheral artery disease): Status: Acute Assessment and Plan: hospital d#3 75yo F with DM2, HTN, PAD, abnormal stress test back in April [facility] in [facility] with nonhealing gangrenous R great toe # acute osteomyelitis R great toe with gangrene # PAD # likely underlying CAD - previously treated at last admission in April with long-term IV ertapenem - IV vanco + pip/anny d#2; follow vanco trough - per Vascular Surgery needs fem-fem bypass L->R but due to hx of abnormal stress test (04/20/20 inferior perfusion defect as well as transient ischemic dilatation) indicated likely multivessel disease. 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 per psychiatry evaluation last admission pt competent to make own decision. continue to revisit. # L eye blepharitis - erythromycin ointment, artifical tears # DM2 - correction-dose lispro # VTE ppx - UFH
[2020-07-29] MEDS: Heparin Sodium,Porcine 5,000 UNIT/ML VIAL 5000 UNIT SUBCUT (16:31)
[2020-07-29 16:42] LABS: Glucose, Whole Blood 148 mg/dL (60-115)
[2020-07-29] MEDS: vancomycin HCL 750 MG in 0.9 % Sodium Chloride 250 ML 265 MG IV (17:02)
[2020-07-29] MEDS: Morphine Sulfate 4 MG/ML CARTRIDGE IVPUSH (18:35)
[2020-07-29 20:40] LABS: Glucose, Whole Blood 169 mg/dL (60-115)
[2020-07-30] MEDS: Piperacillin Sodium/Tazobactam 3.375 GM in 0.9 % Sodium Chloride 50 ML IV ×3 (02:28→16:28)
[2020-07-30 03:26] VITALS: BP 170/71; PULSE 94; RESP 16; TEMP 36.6; O2SAT 94
[2020-07-30] MEDS: Omeprazole 20 MG CAPSULE.DR PO (06:18)
[2020-07-30 06:49] LABS: Hematocrit 23.4 % (37-47); Hemoglobin 7.3 g/dl (12.0-16.0); Mean Corpuscular HGB Conc 31.2 g/dl (31.0-35.0); Mean Corpuscular Hemoglobin 27.1 pg (27.0-33.0); Mean Platelet Volume 9.6 fL (9.4-12.3); Platelet Count 241 X10*3/uL (160-400); Red Blood Count 2.69 X10*6/uL (4.20-5.50); Red Cell Distribution Width 15.4 % (11.0-16.0); White Blood Count 8.7 X10*3/uL (4.8-10.8)
[2020-07-30 07:06] LABS: Anion Gap 13 (12-20); Blood Urea Nitrogen 72 mg/dL (9-16); Calcium 8.8 mg/dL (8.4-10.2); Carbon Dioxide 21 mmol/L (22-29); Chloride 110 mmol/L (96-108); Creatinine Clr Calc Pharmacy 13.5; Estimated Glomerular Filt Rate 14; Glucose Random 102 mg/dL (60-115); Potassium 4.7 mmol/L (3.3-5.1); Sodium 139 mmol/L (135-145)
[2020-07-30 07:09] LABS: Iron 34 mcg/dL (30-160); Percent Iron Saturation 20 % (15-50); Total Iron Binding Capacity 173 mcg/dL (228-428); Unsaturated Iron Binding 139 ug/dL
[2020-07-30 07:19] VITALS: BP 154/85; PULSE 96; RESP 18; TEMP 36.6; O2SAT 98
[2020-07-30 07:31] LABS: Glucose, Whole Blood 96 mg/dL (60-115)
[2020-07-30] MEDS: 0.9 % Sodium Chloride Flush 3 ML SYRINGE IVFLUSH ×3 (08:36→21:25)
[2020-07-30] MEDS: Cholecalciferol (Vitamin D3) 25 MCG TABLET 50 MCG PO (08:37)
[2020-07-30] MEDS: Bumetanide 1 MG TABLET 0.5 MG PO (08:37)
[2020-07-30] MEDS: calcitrioL 0.25 MCG CAPSULE PO (08:38)
[2020-07-30] MEDS: Aspirin Enteric Coated 81 MG TABLET.DR PO (08:38)
[2020-07-30] MEDS: Metoprolol Tartrate 50 MG TABLET PO ×2 (08:39→21:22)
[2020-07-30] MEDS: Ascorbic Acid 250 MG TABLET PO ×2 (08:39→21:22)
[2020-07-30] MEDS: amLODIPine Besylate 5 MG TABLET 10 MG PO (08:39)
[2020-07-30] MEDS: Atropine Sulfate 1 % Ophth Sol 2 ML BOTTLE 1 DROP EYE-LEFT ×3 (08:45→21:27)
[2020-07-30] MEDS: Erythromycin Base 0.5% Oph Oin 1 GM TUBE 1 CM EYE-LEFT ×4 (08:46→20:05)
[2020-07-30] MEDS: Artificial Tears 15 ML DROPS 2 DROP EYE-LEFT ×4 (08:46→21:27)
[2020-07-30 10:57] LABS: Glucose, Whole Blood 134 mg/dL (60-115)
[2020-07-30 11:03] VITALS: BP 161/73; PULSE 93; RESP 18; TEMP 36.1; O2SAT 99
--- NOTE | 2020-07-30 14:19 | HO.PM.IMPN ---
Subjective Subjective Date of Service: 07/30/20 Interval History: R great toe pain improved L eye swelling/irritation improving Declines blood transfusion Does not want to undergo cardiac catheterization Adamant about never wanting to undergo HD Physical Exam Vital Signs: Vital Signs: Last Vital Signs Temp 97.0 F 07/30/20 11:03 Pulse 93 07/30/20 11:03 Resp 18 07/30/20 11:03 BP 161/73 H 07/30/20 11:03 Pulse Ox 99 07/30/20 11:03 Body Mass Index 23.1 Gen: in NAD, legally blind HEENT: edema of L upper and lower eyelids, sclera anicteric, moist mucus membranes Neck: supple Lungs: clear to auscultation bilaterally Heart: regular rate and rhythm, no murmurs Abd: soft, non-tender, non-distended Ext: R great toe with dry gangrene, no proximal erythema or purulence Skin: warm/well-perfused Neuro: alert and oriented x3, no focal findings Psych: appropriate affect Objective Data Current Medications Generic Name Dose Route Start Last Admin Trade Name Harmanq PRN Reason Stop Dose Admin Acetaminophen 650 mg 07/27/20 22:23 07/29/20 06:01 Acetaminophen 325 Mg Tablet PO 650 mg Q6H PRN Administration Pain, Mild (Pain Scale 1-3) Amlodipine Besylate 10 mg 07/28/20 09:00 07/30/20 08:39 Amlodipine Besylate 5 Mg Tablet PO 10 mg DAILY RAUL Administration Protocol Artificial Tears 2 drop 07/29/20 13:00 07/30/20 12:42 Artificial Tears 15 Ml Drops EYE-LEFT 2 drop QID RAUL Administration Ascorbic Acid 250 mg 07/28/20 09:00 07/30/20 08:39 Ascorbic Acid 250 Mg Tablet PO 250 mg BID RAUL Administration Aspirin 81 mg 07/28/20 09:00 07/30/20 08:38 Aspirin Enteric Coated 81 Mg Tablet.Dr PO 81 mg DAILY RAUL Administration Atorvastatin Calcium 80 mg 07/27/20 22:23 07/29/20 21:23 Atorvastatin Calcium 80 Mg Tablet PO Not Given BEDTIME RAUL Atropine Sulfate 1 drop 07/27/20 22:23 07/30/20 08:45 Atropine Sulfate 1 % Ophth Jacki 2 Ml Bottle EYE-LEFT 1 drop TID RAUL Administration Bumetanide 0.5 mg 07/27/20 22:23 07/30/20 08:37 Bumetanide 1 Mg Tablet PO 0.5 mg BID [facility] Administration Protocol Calcitriol 0.25 mcg 07/28/20 09:00 07/30/20 08:38 Calcitriol 0.25 Mcg Capsule PO 0.25 mcg DAILY [facility] Administration Cyanocobalamin 1,000 mcg 08/15/20 09:00 Cyanocobalamin (Vitamin B-12) 1,000 Mcg/Ml Vial IM Q28D [facility] Docusate Sodium 100 mg 07/27/20 22:23 Docusate Sodium 100 Mg Capsule PO DAILY PRN Constipation Erythromycin 1 cm 07/29/20 13:00 07/30/20 13:31 Erythromycin Base 0.5% Oph Oin 1 Gm Tube EYE-LEFT 1 cm QID [facility] Administration Fluticasone Propionate 1 spray 07/28/20 09:00 07/30/20 08:44 Fluticasone Propionate Nasal 16 Gm [place] NOSTRIL-B Not Given DAILY [facility] Heparin Sodium (Porcine) 5,000 unit 07/29/20 17:00 07/30/20 06:03 Heparin Sodium,Porcine 5,000 Unit/Ml Vial SUBCUT Not Given Q12H [facility] Vancomycin HCl 750 mg/ Sodium 265 mls @ 265 mls/hr 07/29/20 17:00 07/29/20 18:02 Chloride IV Infused Q24H [facility] Infusion Piperacillin Sod/Tazobactam 50 mls @ 100 mls/hr 07/28/20 01:00 07/30/20 09:09 Sod 3.375 gm/ Sodium Chloride IV Infused Q8H [facility] Infusion Insulin Human Lispro 0 unit 07/28/20 07:30 07/30/20 11:42 Insulin Lispro 100 Unit/Ml 3 Ml Vial SUBCUT Not Given QIDACHS [facility] Protocol Loratadine 10 mg 07/28/20 09:00 07/30/20 08:43 Loratadine 10 Mg Tablet PO Not Given DAILY [facility] Metoprolol Tartrate 50 mg 07/27/20 22:23 07/30/20 08:39 Metoprolol Tartrate 50 Mg Tablet PO 50 mg BID [facility] Administration Protocol Morphine Sulfate 4 mg 07/27/20 22:23 07/29/20 18:35 Morphine Sulfate 4 Mg/Ml Cartridge IVPUSH 4 mg Q4H PRN Administration Pain, Severe (Pain Scale 7-10) Non-Formulary Medication 1 drop 06/18/21 09:00 Timolol Maleate EYE-RIGHT DAILY [facility] Omeprazole 20 mg 07/28/20 06:30 07/30/20 06:18 Omeprazole 20 Mg Capsule.Dr PO 20 mg DAILY@0630 RAUL Administration Ondansetron HCl 4 mg 07/27/20 22:23 07/27/20 22:41 Ondansetron Hcl 4 Mg/2 Ml Vial IVPUSH 4 mg Q8H PRN Administration Nausea and Vomiting Pharmacy Consult 1 each 07/27/20 16:25 Consult Rx Perform Med Rec MISCELLANE ONCE PRN Consult order Pharmacy Consult 1 each 07/27/20 16:38 Consult Rx Vancomycin Dosing MISCELLANE DAILY PRN Consult order Polyethylene Glycol 17 gm 07/28/20 09:00 07/30/20 08:42 Polyethylene Glycol 3350 17 Gm Powd.Pack PO Not Given DAILY RAUL Prednisolone Acetate 1 drop 07/28/20 09:00 07/30/20 08:45 Prednisolone Acetate 1 % Oph Susp 5 Ml Drpbtl EYE-LEFT Not Given DAILY [facility] Sevelamer Carbonate 800 mg 07/28/20 17:00 07/30/20 11:43 Sevelamer Carbonate Tablet 800 Mg Tablet PO Not Given TIDWM [facility] Sodium Chloride 3 ml 07/28/20 00:00 07/30/20 08:36 0.9 % Sodium Chloride Flush 3 Ml Syringe IVFLUSH 3 ml QSHIFT [facility] Administration Vitamin D 50 mcg 07/28/20 09:00 07/30/20 08:37 Cholecalciferol (Vitamin D3) 25 Mcg Tablet PO 50 mcg DAILY [facility] Administration Labs CBC & Chem 7: 07/30/20 06:25 07/30/20 06:25 Labs: Laboratory Results - last 24 hr 07/29/20 07/29/20 07/30/20 16:33 20:36 06:25 WBC 8.7 RBC 2.69 L Hgb 7.3 L Hct 23.4 L MCV 87.0 MCH 27.1 MCHC 31.2 RDW 15.4 Plt Count 241 MPV 9.6 Absolute Nucleated RBC 0.000 Nucleated RBC % (auto) 0.0 Sodium Potassium Chloride Carbon Dioxide Anion Gap BUN Creatinine Estim Creat Clear Calc Estimated GFR POC Glucose 148 H 169 H Random Glucose Calcium Iron TIBC % Saturation Unsat Iron Binding 07/30/20 07/30/2007/30/21 06:25 06:25 07:23 WBC RBC Hgb Hct MCV MCH MCHC RDW Plt Count MPV Absolute Nucleated RBC Nucleated RBC % (auto) Sodium 139 Potassium 4.7 Chloride 110 H Carbon Dioxide 21 L Anion Gap 13 BUN 72 H Creatinine 3.31 H Estim Creat Clear Calc 13.5 Estimated GFR 14 POC Glucose 96 Random Glucose 102 Calcium 8.8 Iron 34 TIBC 173 L % Saturation 20 Unsat Iron Binding 139 07/30/20 10:49 WBC RBC Hgb Hct MCV MCH MCHC RDW Plt Count MPV Absolute Nucleated RBC Nucleated RBC % (auto) Sodium Potassium Chloride Carbon Dioxide Anion Gap BUN Creatinine Estim Creat Clear Calc Estimated GFR POC Glucose 134 H Random Glucose Calcium Iron TIBC % Saturation Unsat Iron Binding Microbiology Microbiology Results: Microbiology 07/27/20 17:11 Blood Culture - Preliminary Blood - Venous No growth after 48 hours. 07/27/20 17:10 Blood Culture - Preliminary Blood - Venous No growth after 48 hours. Quality Stroke Does the patient have a stroke diagnosis?: No VTE Prior VTE?: No VTE Risk Level:: Medical - moderate - high VTE Device Contraindication: N/A - Device Ordered VTE Drug Contraindication: Treatment Not Indicated Assessment and Plan (1) Osteomyelitis of great toe of right foot: Status: Acute (2) PAD (peripheral artery disease): Status: Acute Assessment and Plan: hospital d#5 75yo F with DM2, HTN, PAD, abnormal stress test back in April sent in from [facility] with nonhealing gangrenous R great toe # acute osteomyelitis R great toe with gangrene # PAD (R iliac artery occlusion) # likely underlying CAD - previously treated at last admission in April with long-term IV ertapenem - IV vanco + pip/anny d#3; follow vanco trough - per Vascular Surgery needs fem-fem bypass L->R, without which an amputation site would not heal properly. But she had an abnormal stress test (04/20/20 inferior perfusion defect as well as transient ischemic dilatation) indicating likely multivessel disease. She refuses cardiac catheterization, however. Will discuss options with Vascular Surgery and ID tomorrow. 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 # normocytic anemia - likely anemia of CKD + due to underlying osteomyelitis but check FOBT. T+S but refuses blood transfusion # severe constipation - continue bowel regimen # B12 deficiency - on IM repletion monthly, level pending # HTN - refusing medication (amlodipine + metoprolol). per psychiatry evaluation last admission pt competent to make own decision. continue to revisit. # L eye blepharitis - erythromycin ointment, artifical tears # DM2 - correction-dose lispro # VTE ppx - UFH
--- NOTE | 2020-07-30 14:35 | PM.PNNEP ---
Subjective Subjective Date of Service: 07/30/20 Interval history: Resting in the bed Blind R great toe pain improved L eye swelling/irritation Apparantly declines blood transfusion/ Does not want to undergo cardiac catheterization Physical Exam Vital Signs: Vital Signs: Last Vital Signs Temp 97.0 F 07/30/20 11:03 Pulse 93 07/30/20 11:03 Resp 18 07/30/20 11:03 BP 161/73 H 07/30/20 11:03 Pulse Ox 99 07/30/20 11:03 Body Mass Index 23.1 Const: General: cooperative, healthy appearing, comfortable, no acute distress, alert and awake Nutritional Appearance: average body habitus Orientation/consciousness: oriented to person, oriented to place, oriented to time and patient oriented x3 Limitations: no limitations HENMT: Other: Unremarkable Head: Yes normal to inspection Ears: hearing grossly normal bilaterally General nose exam: Normal external nose present Face and sinus: Yes normal facial exam Mouth: Normal oral and palatal mucosa present Throat: Yes posterior oropharynx normal Eyes: Other: 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 eyes, scabbing under the left lower eyelid General: appearance normal, both eyes and all related structures Pupils: Equal, round and reactive pupils present Neck: Neck: Yes normal visual inspection Carotids: no bruits Chest: Chest palpation & inspection: normal inspection of the chest Resp: Effort & Inspection: normal respiratory effort, able to speak in complete sentences, no stridor and not tachypneic Auscultation: clear to auscultation bilaterally, no crackles, no rales, no rhonchi and no wheezes Cardio: Jugular venous distension: no JVD Palpation: normal PMI Rate: regular rate Rhythm: regular rhythm Heart sounds: S1 normal heart sound present, S2 normal heart sound present, no gallops, no murmurs and no rubs Bruits: no carotid bruits Peripheral pulses: Peripheral pulses 2+ throughout and dorsalis pedis present (Right side DP signal) GI: Inspection: Yes normal to inspection Palpation (GI): Soft to palpation and nontender Auscultation: normal bowel sounds Back/Spine/Pelvis: Other: unremarkable Thoracic/Lumbar Spine: thoracic and lumbar spine normal to inspection Skin: Other: warm, dry, no rash General skin exam: no rashes or lesions noted Wounds: wounds noted (Right great toe gangrene) Hair: normal Neuro: General: oriented to person, oriented to place, oriented to time, patient oriented x3 and moves all extremities Cranial nerves: Yes CN's II-XII intact bilaterally, Yes Equal, round and reactive pupils present, Yes Normal hearing present and Yes Other cranial nerve findings present Cognition (Neuro): normal cognition Speech: No Abnormal speech present Gait exam (Neuro): Normal gait present Motor exam (neuro): 5/5 motor strength present throughout Extrem: Other: right great toe necrosis General: Yes normal to inspection, Yes no clubbing, cyanosis or edema, Yes no pedal edema, No clubbing, No cyanosis and No edema Psych: Appearance: grossly normal Mental Status: mental status grossly normal and other Speech and movement: Normal speech and movement present Objective Data Labs CBC & Chem 7: 07/30/20 06:25 07/30/20 06:25 Labs: Laboratory Results - last 24 hr 07/29/20 07/29/20 07/30/20 16:33 20:36 06:25 WBC 8.7 RBC 2.69 L Hgb 7.3 L Hct 23.4 L MCV 87.0 MCH 27.1 MCHC 31.2 RDW 15.4 Plt Count 241 MPV 9.6 Absolute Nucleated RBC 0.000 Nucleated RBC % (auto) 0.0 Sodium Potassium Chloride Carbon Dioxide Anion Gap BUN Creatinine Estim Creat Clear Calc Estimated GFR POC Glucose 148 H 169 H Random Glucose Calcium Iron TIBC % Saturation Unsat Iron Binding 07/30/20 07/30/20 07/30/20 06:25 06:25 07:23 WBC RBC Hgb Hct MCV MCH MCHC RDW Plt Count MPV Absolute Nucleated RBC Nucleated RBC % (auto) Sodium 139 Potassium 4.7 Chloride 110 H Carbon Dioxide 21 L Anion Gap 13 BUN 72 H Creatinine 3.31 H Estim Creat Clear Calc 13.5 Estimated GFR 14 POC Glucose 96 Random Glucose 102 Calcium 8.8 Iron 34 TIBC 173 L % Saturation 20 Unsat Iron Binding 139 07/30/20 10:49 WBC RBC Hgb Hct MCV MCH MCHC RDW Plt Count MPV Absolute Nucleated RBC Nucleated RBC % (auto) Sodium Potassium Chloride Carbon Dioxide Anion Gap BUN Creatinine Estim Creat Clear Calc Estimated GFR POC Glucose 134 H Random Glucose Calcium Iron TIBC % Saturation Unsat Iron Binding Microbiology Microbiology Results: Microbiology 07/27/20 17:11 Blood - Venous Blood Culture - Preliminary No growth after 48 hours. 07/27/20 17:10 Blood - Venous Blood Culture - Preliminary No growth after 48 hours. Assessment & Plan Assessment and plan (1) Osteomyelitis of great toe of right foot: Status: Acute (2) PAD (peripheral artery disease): Status: Acute Assessment and Plan: 75yo F with DM2, HTN, PAD, abnormal stress test back in April sent in from [facility] with nonhealing gangrenous R great toe -Mild KRYSTYNA - Better -CKD 4/5 at baseline -Acute osteomyelitis R great toe with gangrene - PAD (R iliac artery occlusion) -likely underlying CAD Avoid Nephrotoxins On Vanco and Zosyn- Follow Vanc levels Per Vascular Surgery needs fem-fem bypass L->R, Needs a cardiac cath She refuses cardiac catheterization If She agrees for a cath - Suggest IVF 100 ml 8 hrs pre and post cath likely anemia of CKD - refuses blood transfusion- ? Epo def - % sat is 20% - Fe stores OK Will check Ferritin Epo- 20 K x 1 dose today Time Spent With Patient Time: Total time spent is greater than 50% in coordination of care (as documented) at patient's floor/unit and/or counseling patient: Procedures Date of Service Date of Service: 07/30/20 Progress Note: Quality Stroke Does the patient have a stroke diagnosis?: No
[2020-07-30 15:38] VITALS: BP 136/63; PULSE 84; RESP 16; TEMP 36.5; O2SAT 97
[2020-07-30] MEDS: Heparin Sodium,Porcine 5,000 UNIT/ML VIAL 5000 UNIT SUBCUT (16:28)
[2020-07-30 16:32] LABS: Glucose, Whole Blood 156 mg/dL (60-115)
[2020-07-30] MEDS: vancomycin HCL 750 MG in 0.9 % Sodium Chloride 250 ML 265 MG IV (17:05)
--- NOTE | 2020-07-30 17:54 | PC.NURSE ---
PT CONTINUES TO REFUSE SOME MEDICATIONS THROUGHOUT THE DAY. ENCOURAGED TO TAKE MEDICATIONS PRESCRIBED. STILL REMAINS ADAMANT ABOUT CERTAIN MEDICATIONS.
[2020-07-30 19:36] VITALS: BP 175/77; PULSE 86; RESP 14; TEMP 36.4; O2SAT 95
[2020-07-30] MEDS: Acetaminophen 325 MG TABLET 650 MG PO (20:00)
[2020-07-30 20:40] LABS: Glucose, Whole Blood 158 mg/dL (60-115)
[2020-07-30 21:22] VITALS: BP 175/77; PULSE 86
[2020-07-31] VITALS (7 sets, daily range): BP systolic 137–180; BP diastolic 52–79; PULSE 77–98; RESP 14–18; TEMP 36–37.2; O2SAT 96–98
[2020-07-31] MEDS: Piperacillin Sodium/Tazobactam 3.375 GM in 0.9 % Sodium Chloride 50 ML IV ×3 (01:01→16:19)
[2020-07-31] MEDS: Omeprazole 20 MG CAPSULE.DR PO (05:40)
[2020-07-31] MEDS: Heparin Sodium,Porcine 5,000 UNIT/ML VIAL 5000 UNIT SUBCUT ×2 (05:40→16:27)
[2020-07-31 06:41] LABS: Hematocrit 23.3 % (37-47); Hemoglobin 7.3 g/dl (12.0-16.0); Mean Corpuscular HGB Conc 31.3 g/dl (31.0-35.0); Mean Corpuscular Hemoglobin 27.4 pg (27.0-33.0); Mean Corpuscular Volume 87.6 fL (80-98); Mean Platelet Volume 9.9 fL (9.4-12.3); Platelet Count 240 X10*3/uL (160-400); Red Blood Count 2.66 X10*6/uL (4.20-5.50); Red Cell Distribution Width 15.5 % (11.0-16.0); White Blood Count 7.3 X10*3/uL (4.8-10.8)
[2020-07-31 06:55] LABS: Anion Gap 12 (12-20); Blood Urea Nitrogen 68 mg/dL (9-16); Calcium 8.9 mg/dL (8.4-10.2); Carbon Dioxide 19 mmol/L (22-29); Chloride 110 mmol/L (96-108); Creatinine Clr Calc Pharmacy 13.8; Estimated Glomerular Filt Rate 14; Glucose Random 120 mg/dL (60-115); Potassium 4.4 mmol/L (3.3-5.1); Sodium 137 mmol/L (135-145)
[2020-07-31 07:11] LABS: Ferritin 320 ng/mL (10-250)
[2020-07-31 07:42] LABS: Glucose, Whole Blood 108 mg/dL (60-115)
[2020-07-31 08:48] LABS: Vitamin B12 > 2000 pg/mL (200-900)
[2020-07-31] MEDS: 0.9 % Sodium Chloride Flush 3 ML SYRINGE IVFLUSH ×3 (09:26→23:19)
[2020-07-31] MEDS: Aspirin Enteric Coated 81 MG TABLET.DR PO (09:29)
[2020-07-31] MEDS: Cholecalciferol (Vitamin D3) 25 MCG TABLET 50 MCG PO (09:29)
[2020-07-31] MEDS: Erythromycin Base 0.5% Oph Oin 1 GM TUBE 1 CM EYE-LEFT ×4 (09:29→21:27)
[2020-07-31] MEDS: calcitrioL 0.25 MCG CAPSULE PO (09:29)
[2020-07-31] MEDS: Ascorbic Acid 250 MG TABLET PO ×2 (09:37→21:26)
[2020-07-31] MEDS: Atropine Sulfate 1 % Ophth Sol 2 ML BOTTLE 1 DROP EYE-LEFT ×3 (09:56→21:26)
[2020-07-31] MEDS: Artificial Tears 15 ML DROPS 2 DROP EYE-LEFT ×4 (09:56→21:26)
[2020-07-31] MEDS: Metoprolol Tartrate 50 MG TABLET PO ×2 (09:59→21:26)
--- NOTE | 2020-07-31 11:31 | CONS_ITS ---
DATE OF SERVICE: 07/29/2020 REASON FOR CONSULTATION: Consult requested by the medical team to evaluate and help in management of patient with renal insufficiency who might be scheduled for a cardiac cath. HISTORY OF PRESENT ILLNESS: The patient is a 75-year-old female with past medical history of chronic kidney disease, history of hypertension, and chronic anemia, who presented to the hospital with right big toe pain. She has had this big toe problem since March when she was admitted. She had osteomyelitis and treatment, which included an antibiotic with ertapenem. She was also planning to have a surgical intervention by Dr. Blood and followed by Wound Care. She went to Wound Care the day of admission was noticed to have gangrene and she was advised to come to the hospital. There was no headache, vision changes, chest pain, shortness of breath, abdominal pain, nausea, vomiting, dysuria, urgency of urination, or frequent urination. In the ER, the patient was hemodynamically stable. Lab work showed the patient was anemic with a hemoglobin of 8.8, BUN of 65, and creatinine of 3.1. She had sinus tachycardia. CT scan of the abdomen and pelvis is negative for any acute changes. This CT was done without intravenous contrast. There is no hydronephrosis. REVIEW OF SYSTEMS: As noted above. Other systems are reviewed and negative. PAST MEDICAL HISTORY: History of coronary artery disease, hypertension, chronic anemia, blindness, CKD stage 4/5, followed by Dr. Carey in his office. MEDICATIONS: At home include amlodipine, ascorbic acid, aspirin, atorvastatin, bumetanide, calcitriol, cyanocobalamin, Colace, fluticasone, polyethylene glycol, prednisolone, sevelamer, vitamin D. PERTINENT AND SOCIAL HISTORY: The patient does not smoke, drink, or use alcohol. PHYSICAL EXAMINATION: GENERAL: The patient is resting in the bed, awake, able to follow commands. VITAL SIGNS: Blood pressure was 140/60, pulse 89, afebrile. HEENT: Shows pupils equal and bilaterally reactive to light. She is legally blind. NECK: Supple. CARDIOVASCULAR SYSTEM: S1, S2 without rub or murmur. RESPIRATORY SYSTEM: Air entry decreased in the bases. ABDOMEN: Soft, nontender. No guarding. No rigidity. Bowel sounds normal. EXTREMITIES: Showed right toe gangrene, which is dressed. No edema. LABORATORY DATA: Labs done today. Sodium 137, potassium 4.6, chloride 108, CO2 of 20, BUN 69, creatinine 3.49. Hemoglobin 7.9, hematocrit 25, WBC 9.8, platelets 290. IMPRESSION: 1. 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 I doubt there is significant acute component. 2. Gangrene of the toe. 3. Normocytic anemia due to multifactorial reasons. We will check iron stores. She likely has erythropoietin deficiency as well. She has history of B12 deficiency. 4. Hypertension and she has been refusing medication apparently. 5. Type 2 diabetes mellitus. 6. The patient needs a cardiac catheterization before her revascularization surgery by vascular surgery/fem-fem bypass. RECOMMENDATIONS: The patient is at high of worsening renal function. Her creatinine is already on the high side with severely depressed renal function. She might benefit from intravenous hydration pre and post catheterization. I explained to the patient about the risk of contrast nephropathy. Apparently, the patient has been refusing to have a cardiac cath. In the meantime, I agree with the present antibiotic regimens include vancomycin and Zosyn. We need to follow vancomycin and dose based on the levels. In regard to anemia, I have taken the liberty to order iron stores. We will consider giving her erythropoietin if her iron stores are adequate. As the patient is on antibiotics, she is not a candidate for IV iron, but if she is iron deficient, we can certainly start her on p.o. iron. I recommend continuation of Renagel for hyperphosphatemia. Apparently, she is refusing blood pressure medication, which needs to be addressed and I will continue the present dose of Bumex. Thank you for allowing me to participate in medical management of the patient. MD MICHELLE Son/NEENA / [id number]
[2020-07-31 11:35] LABS: Glucose, Whole Blood 173 mg/dL (60-115)
--- NOTE | 2020-07-31 11:53 | P.PNVS_ITS ---
Subjective Subjective Date of Service: 07/31/20 Patient reports: no new complaints Interval history: Patient seen and examined. No events over the past weekend. Doing fairly well. In much better spirits this morning. Patient was seen in conjunction with Cardiology P Physical Exam Vital Signs: Vital Signs: Last Vital Signs Temp 97.1 F 07/31/20 11:30 Pulse 81 07/31/20 11:30 Resp 18 07/31/20 11:30 BP 141/52 H 07/31/20 11:30 Pulse Ox 98 07/31/20 11:30 Body Mass Index 23.1 Const: General: cooperative, healthy appearing and no acute distress Orientation/consciousness: oriented to person, oriented to place and oriented to time HENMT: Head: Yes normal to inspection Neck: Carotids: no bruits Chest: Chest palpation & inspection: normal inspection of the chest Resp: Effort & Inspection: normal respiratory effort and able to speak in complete sentences Auscultation: clear to auscultation bilaterally Cardio: Rate: regular rate Heart sounds: S1 normal heart sound present and S2 normal heart sound present Peripheral pulses: dorsalis pedis present on the right (Right side DP signal) GI: Inspection: Yes normal to inspection Skin: General skin exam: no rashes or lesions noted Wounds: wounds noted (Right great toe gangrene) Neuro: General: oriented to person, oriented to place, oriented to time and CN's II-XI intact bilaterally Extrem: General: Yes normal to inspection, Yes full ROM and Yes no clubbing, cyanosis or edema Psych: Appearance: grossly normal and well kempt Speech and movement: Normal speech and movement present Affect: normal affect Progress Note: A&P Assessment and plan (1) PAD (peripheral artery disease): Status: Acute Assessment and Plan: Very complex patient with nonhealing right great toe ulcer. Unfortunately she has significant peripheral vascular disease and will require femoral to femoral bypass. It appears that she has multivessel coronary disease. She will most likely require cardiac catheterization prior to intervention. Of note I did do a prior intervention on her on 04/18 2020 which was a peripheral intervention with a contrast load. At that time her GFR was 14. It did improve somewhat after the procedure and is now back to baseline of 14. Nephrology input appreciated - pre and post procedure hydration orders noted. Cardiac catheterization may be prudent prior to peripheral bypass. Unfortunately great toe amputation would not heal, prior to vascular is a bolanos. Would note most likely end up with a BKA. Will continue to follow with you. Thank you for allowing us to assist in her care. If there are any questions or concerns please do not hesitate to contact us. Fall Risk Details Current Medications: Current Medications Generic Name Dose Route Start Last Admin Trade Name Harmanq PRN Reason Stop Dose Admin Acetaminophen 650 mg 07/27/20 22:23 07/30/20 20:00 Acetaminophen 325 Mg Tablet PO 650 mg Q6H PRN Administration Pain, Mild (Pain Scale 1-3) Amlodipine Besylate 10 mg 07/28/20 09:00 07/31/20 09:34 Amlodipine Besylate 5 Mg Tablet PO Not Given DAILY [facility] Protocol Artificial Tears 2 drop 07/29/20 13:00 07/31/20 09:56 Artificial Tears 15 Ml Drops EYE-LEFT 2 drop QID [facility]UL Administration Ascorbic Acid 250 mg 07/28/20 09:00 07/31/20 09:37 Ascorbic Acid 250 Mg Tablet PO 250 mg BID [facility]UL Administration Aspirin 81 mg 07/28/20 09:00 07/31/20 09:29 Aspirin Enteric Coated 81 Mg Tablet. PO 81 mg DAILY [facility] Administration Atorvastatin Calcium 80 mg 07/27/20 22:23 07/30/20 21:31 Atorvastatin Calcium 80 Mg Tablet PO Not Given BEDTIME [facility] Atropine Sulfate 1 drop 07/27/20 22:23 07/31/20 09:56 Atropine Sulfate 1 % Ophth Jacki 2 Ml Bottle EYE-LEFT 1 drop TID RAUL Administration Bumetanide 0.5 mg 07/27/20 22:23 07/31/20 09:29 Bumetanide 1 Mg Tablet PO Not Given BID [facility] Protocol Calcitriol 0.25 mcg 07/28/20 09:00 07/31/20 09:29 Calcitriol 0.25 Mcg Capsule PO 0.25 mcg DAILY [facility] Administration Cyanocobalamin 1,000 mcg 08/15/20 09:00 Cyanocobalamin (Vitamin B-12) 1,000 Mcg/Ml Vial IM Q28D [facility] Docusate Sodium 100 mg 07/27/20 22:23 Docusate Sodium 100 Mg Capsule PO DAILY PRN Constipation Erythromycin 1 cm 07/29/20 13:00 07/31/20 09:29 Erythromycin Base 0.5% Oph Oin 1 Gm Tube EYE-LEFT 1 cm QID RAUL Administration Fluticasone Propionate 1 spray 07/28/20 09:00 07/31/20 09:56 Fluticasone Propionate Nasal 16 Gm [place] NOSTRIL-B Not Given DAILY [facility] Heparin Sodium (Porcine) 5,000 unit 07/29/20 17:00 07/31/20 05:40 Heparin Sodium,Porcine 5,000 Unit/Ml Vial SUBCUT 5,000 unit Q12H [facility] Administration Vancomycin HCl 750 mg/ Sodium 265 mls @ 265 mls/hr 07/29/20 17:00 07/30/20 18:05 Chloride IV Infused Q24H [facility] Infusion Piperacillin Sod/Tazobactam 50 mls @ 100 mls/hr 07/28/20 01:00 07/31/20 10:02 Sod 3.375 gm/ Sodium Chloride IV Infused Q8H [facility] Infusion Insulin Human Lispro 0 unit 07/28/20 07:30 07/31/20 11:46 Insulin Lispro 100 Unit/Ml 3 Ml Vial SUBCUT Not Given QIDACHS [facility] Protocol Loratadine 10 mg 07/28/20 09:00 07/31/20 09:57 Loratadine 10 Mg Tablet PO Not Given DAILY [facility] Metoprolol Tartrate 50 mg 07/27/20 22:23 07/31/20 09:59 Metoprolol Tartrate 50 Mg Tablet PO 50 mg BID [facility] Administration Protocol Morphine Sulfate 4 mg 07/27/20 22:23 07/29/20 18:35 Morphine Sulfate 4 Mg/Ml Cartridge IVPUSH 4 mg Q4H PRN Administration Pain, Severe (Pain Scale 7-10) Non-Formulary Medication 1 drop 07/28/20 09:00 Timolol Maleate EYE-RIGHT DAILY [facility] Omeprazole 20 mg 07/28/20 06:30 07/31/20 05:40 Omeprazole 20 Mg Capsule.Dr PO 20 mg DAILY@0630 [facility] Administration Ondansetron HCl 4 mg 07/27/20 22:23 07/27/20 22:41 Ondansetron Hcl 4 Mg/2 Ml Vial IVPUSH 4 mg Q8H PRN Administration Nausea and Vomiting Pharmacy Consult 1 each 07/27/20 16:25 Consult Rx Perform Med Rec MISCELLANE ONCE PRN Consult order Pharmacy Consult 1 each 07/27/20 16:38 Consult Rx Vancomycin Dosing MISCELLANE DAILY PRN Consult order Polyethylene Glycol 17 gm 07/28/20 09:00 07/31/20 09:57 Polyethylene Glycol 3350 17 Gm Powd.Pack PO Not Given DAILY [facility] Prednisolone Acetate 1 drop 07/28/20 09:00 07/31/20 10:02 Prednisolone Acetate 1 % Oph Susp 5 Ml Drpbtl EYE-LEFT Not Given DAILY [facility] Sevelamer Carbonate 800 mg 07/28/20 17:00 07/31/20 09:34 Sevelamer Carbonate Tablet 800 Mg Tablet PO Not Given TIDWM [facility] Sodium Chloride 3 ml 07/28/20 00:00 07/31/20 09:26 0.9 % Sodium Chloride Flush 3 Ml Syringe IVFLUSH 3 ml QSHIFT [facility] Administration Vitamin D 50 mcg 07/28/20 09:00 07/31/20 09:29 Cholecalciferol (Vitamin D3) 25 Mcg Tablet PO 50 mcg DAILY [facility] Administration Time Spent With Patient Time: Total time spent is greater than 50% in coordination of care (as documented) at patient's floor/unit and/or counseling patient: Time with patient: 15 - 24 minutes Procedures Date of Service Date of Service: 07/31/20 Quality Stroke Does the patient have a stroke diagnosis?: No VTE Prior VTE?: No VTE Risk Level:: Medical - moderate - high VTE Device Contraindication: N/A - Device Ordered VTE Drug Contraindication: Treatment Not Indicated
--- NOTE | 2020-07-31 11:55 | PM.PNCARD ---
Subjective Subjective Date of Service: 08/01/20 Interval history: Complaining of right great toe pain. Review of Systems Review of Systems Good appetite. No fevers Physical Exam Vital Signs: Last Vital Signs Temp 97.1 F 07/31/20 11:30 Pulse 81 07/31/20 11:30 Resp 18 07/31/20 11:30 BP 141/52 H 07/31/20 11:30 Pulse Ox 98 07/31/20 11:30 Body Mass Index 23.1 GENERAL APPEARANCE: in no acute distress, pleasant. NECK: no carotid bruit, no jugular venous distention. SKIN: no suspicious lesions, warm and dry. HEART: no murmurs, regular rate and rhythm. LUNGS: clear to auscultation bilaterally. ABDOMEN: soft, nontender. NEUROLOGIC: No gross deficits, AAO X 3 Results Labs and Meds Result diagrams: 07/31/20 06:05 07/31/20 06:05 Lab results: Laboratory Results - last 24 hr 07/29/20 07/30/20 07/30/20 10:28 16:27 20:25 WBC RBC Hgb Hct MCV MCH MCHC RDW Plt Count MPV Absolute Nucleated RBC Nucleated RBC % (auto) Sodium Potassium Chloride Carbon Dioxide Anion Gap BUN Creatinine Estim Creat Clear Calc Estimated GFR POC Glucose 156 H 158 H Random Glucose Calcium Ferritin Vitamin B12 > 2000 H Blood Type Antibody Screen 07/31/20 07/31/20 07/31/20 06:05 06:05 06:05 WBC 7.3 RBC 2.66 L Hgb 7.3 L Hct 23.3 L MCV 87.6 MCH 27.4 MCHC 31.3 RDW 15.5 Plt Count 240 MPV 9.9 Absolute Nucleated RBC 0.000 Nucleated RBC % (auto) 0.0 Sodium 137 Potassium 4.4 Chloride 110 H Carbon Dioxide 19 L Anion Gap 12 BUN 68 H Creatinine 3.24 H Estim Creat Clear Calc 13.8 Estimated GFR 14 POC Glucose Random Glucose 120 H Calcium 8.9 Ferritin Vitamin B12 Blood Type O Positive Antibody Screen NEGATIVE 07/31/20 07/31/20 07/31/20 06:05 07:35 11:29 WBC RBC Hgb Hct MCV MCH MCHC RDW Plt Count MPV Absolute Nucleated RBC Nucleated RBC % (auto) Sodium Potassium Chloride Carbon Dioxide Anion Gap BUN Creatinine Estim Creat Clear Calc Estimated GFR POC Glucose 108 173 H Random Glucose Calcium Ferritin 320 H Vitamin B12 Blood Type Antibody Screen Progress Note: A&P Assessment and plan (1) Abnormal myocardial perfusion study: Status: Acute (2) PAD (peripheral artery disease): Status: Acute (3) Osteomyelitis of great toe of right foot: Status: Acute Assessment and Plan: 75-year-old female with osteomyelitis and PVD. She had a high risk stress test with TID pointing towards multivessel disease. She has CKD and we have been asked to risk stratify her before vascular surgery. She require a high risk surgery. She has DM, CKD and high risk stress test. I think she is high risk for surgery. Cardiac catheterization will not change her surgical risk and will add to procedural complications including worsening of renal function which can worsen her morbidity. We will follow along with you. Fall Risk Details Current Medications: Current Medications Generic Name Dose Route Start Last Admin Trade Name Freq PRN Reason Stop Dose Admin Acetaminophen 650 mg 07/27/20 22:23 07/30/20 20:00 Acetaminophen 325 Mg Tablet PO 650 mg Q6H PRN Administration Pain, Mild (Pain Scale 1-3) Amlodipine Besylate 10 mg 07/28/20 09:00 07/31/20 09:34 Amlodipine Besylate 5 Mg Tablet PO Not Given DAILY [facility] Protocol Artificial Tears 2 drop 07/29/20 13:00 07/31/20 09:56 Artificial Tears 15 Ml Drops EYE-LEFT 2 drop QID RAUL Administration Ascorbic Acid 250 mg 07/28/20 09:00 07/31/20 09:37 Ascorbic Acid 250 Mg Tablet PO 250 mg BID RAUL Administration Aspirin 81 mg 07/28/20 09:00 07/31/20 09:29 Aspirin Enteric Coated 81 Mg Tablet. PO 81 mg DAILY [facility] Administration Atorvastatin Calcium 80 mg 07/27/20 22:23 07/30/20 21:31 Atorvastatin Calcium 80 Mg Tablet PO Not Given BEDTIME RAUL Atropine Sulfate 1 drop 07/27/20 22:23 07/31/20 09:56 Atropine Sulfate 1 % Ophth Jacki 2 Ml Bottle EYE-LEFT 1 drop TID RAUL Administration Bumetanide 0.5 mg 07/27/20 22:23 07/31/20 09:29 Bumetanide 1 Mg Tablet PO Not Given BID RAUL Protocol Calcitriol 0.25 mcg 07/28/20 09:00 07/31/20 09:29 Calcitriol 0.25 Mcg Capsule PO 0.25 mcg DAILY [facility] Administration Cyanocobalamin 1,000 mcg 08/15/20 09:00 Cyanocobalamin (Vitamin B-12) 1,000 Mcg/Ml Vial IM Q28D [facility] Docusate Sodium 100 mg 07/27/20 22:23 Docusate Sodium 100 Mg Capsule PO DAILY PRN Constipation Erythromycin 1 cm 07/29/20 13:00 07/31/20 09:29 Erythromycin Base 0.5% Oph Oin 1 Gm Tube EYE-LEFT 1 cm QID RAUL Administration Fluticasone Propionate 1 spray 07/28/20 09:00 07/31/20 09:56 Fluticasone Propionate Nasal 16 Gm [place] NOSTRIL-B Not Given DAILY [facility] Heparin Sodium (Porcine) 5,000 unit 07/29/20 17:00 07/31/20 05:40 Heparin Sodium,Porcine 5,000 Unit/Ml Vial SUBCUT 5,000 unit Q12H [facility] Administration Vancomycin HCl 750 mg/ Sodium 265 mls @ 265 mls/hr 07/29/20 17:00 07/30/20 18:05 Chloride IV Infused Q24H [facility] Infusion Piperacillin Sod/Tazobactam 50 mls @ 100 mls/hr 07/28/20 01:00 07/31/20 10:02 Sod 3.375 gm/ Sodium Chloride IV Infused Q8H [facility] Infusion Insulin Human Lispro 0 unit 07/28/20 07:30 07/31/20 11:46 Insulin Lispro 100 Unit/Ml 3 Ml Vial SUBCUT Not Given QIDACHS [facility] Protocol Loratadine 10 mg 07/28/20 09:00 07/31/20 09:57 Loratadine 10 Mg Tablet PO Not Given DAILY [facility] Metoprolol Tartrate 50 mg 07/27/20 22:23 07/31/20 09:59 Metoprolol Tartrate 50 Mg Tablet PO 50 mg BID [facility] Administration Protocol Morphine Sulfate 4 mg 07/27/20 22:23 07/29/20 18:35 Morphine Sulfate 4 Mg/Ml Cartridge IVPUSH 4 mg Q4H PRN Administration Pain, Severe (Pain Scale 7-10) Non-Formulary Medication 1 drop 07/28/20 09:00 Timolol Maleate EYE-RIGHT DAILY [facility] Omeprazole 20 mg 07/28/20 06:30 07/31/20 05:40 Omeprazole 20 Mg Capsule.Dr PO 20 mg DAILY@0630 [facility] Administration Ondansetron HCl 4 mg 07/27/20 22:23 07/27/20 22:41 Ondansetron Hcl 4 Mg/2 Ml Vial IVPUSH 4 mg Q8H PRN Administration Nausea and Vomiting Pharmacy Consult 1 each 07/27/20 16:25 Consult Rx Perform Med Rec MISCELLANE ONCE PRN Consult order Pharmacy Consult 1 each 07/27/20 16:38 Consult Rx Vancomycin Dosing MISCELLANE DAILY PRN Consult order Polyethylene Glycol 17 gm 07/28/20 09:00 07/31/20 09:57 Polyethylene Glycol 3350 17 Gm Powd.Pack PO Not Given DAILY [facility] Prednisolone Acetate 1 drop 07/28/20 09:00 07/31/20 10:02 Prednisolone Acetate 1 % Oph Susp 5 Ml Drpbtl EYE-LEFT Not Given DAILY [facility] Sevelamer Carbonate 800 mg 07/28/20 17:00 07/31/20 09:34 Sevelamer Carbonate Tablet 800 Mg Tablet PO Not Given TIDWM [facility] Sodium Chloride 3 ml 07/28/20 00:00 07/31/20 09:26 0.9 % Sodium Chloride Flush 3 Ml Syringe IVFLUSH 3 ml QSHIFT [facility] Administration Vitamin D 50 mcg 07/28/20 09:00 07/31/20 09:29 Cholecalciferol (Vitamin D3) 25 Mcg Tablet PO 50 mcg DAILY [facility] Administration Time Spent With Patient Time: Total time spent is greater than 50% in coordination of care (as documented) at patient's floor/unit and/or counseling patient: Time with patient: 25 - 35 minutes Progress Note: Quality Stroke Does the patient have a stroke diagnosis?: No Procedures Date of Service Date of Service: 07/31/20
--- NOTE | 2020-07-31 12:20 | MHC.CM.PN ---
EMR REVIEWED, PT DECLINING CARDIAC CATH, FEM-BIPAP AND BLOOD TRANSFUSIONS, HOSPITALIST TO CONSULT WITH DR. GAMBLE TO DETERMINE WHETHER HE WILL CONTINUE W/TOE AMP, CM ALSO WORKING ON NEW SNF FOR PT AURY TO HER NOT WANTING TO RETURN TO CARE ONE OF [facility] IS REVIEWEING PT. D/C PLAN: STR - UNCLEAR OF FACILITY AT THIS TIME, BLS TRANSPORT
--- NOTE | 2020-07-31 12:52 | P.PNIM_ITS ---
Subjective Subjective Date of Service: 07/31/20 Interval History: still refuses cardiac cath + transfusion and would not want HD pain well-controlled Physical Exam Vital Signs: Vital Signs: Last Vital Signs Temp 97.1 F 07/31/20 11:30 Pulse 81 07/31/20 11:30 Resp 18 07/31/20 11:30 BP 141/52 H 07/31/20 11:30 Pulse Ox 98 07/31/20 11:30 Body Mass Index 23.1 Gen: in NAD, legally blind HEENT: edema of L upper and lower eyelids, sclera anicteric, moist mucus membranes Neck: supple Lungs: clear to auscultation bilaterally Heart: regular rate and rhythm, no murmurs Abd: soft, non-tender, non-distended Ext: R great toe with dry gangrene, no proximal erythema or purulence Skin: warm/well-perfused Neuro: alert and oriented x3, no focal findings Psych: appropriate affect Objective Data Current Medications Generic Name Dose Route Start Last Admin Trade Name Freq PRN Reason Stop Dose Admin Acetaminophen 650 mg 07/27/20 22:23 07/30/20 20:00 Acetaminophen 325 Mg Tablet PO 650 mg Q6H PRN Administration Pain, Mild (Pain Scale 1-3) Amlodipine Besylate 10 mg 07/28/20 09:00 07/31/20 09:34 Amlodipine Besylate 5 Mg Tablet PO Not Given DAILY [facility] Protocol Artificial Tears 2 drop 07/29/20 13:00 07/31/20 09:56 Artificial Tears 15 Ml Drops EYE-LEFT 2 drop QID RAUL Administration Ascorbic Acid 250 mg 07/28/20 09:00 07/31/20 09:37 Ascorbic Acid 250 Mg Tablet PO 250 mg BID RAUL Administration Aspirin 81 mg 07/28/20 09:00 07/31/20 09:29 Aspirin Enteric Coated 81 Mg Tablet.Dr PO 81 mg DAILY [facility] Administration Atorvastatin Calcium 80 mg 07/27/20 22:23 07/30/20 21:31 Atorvastatin Calcium 80 Mg Tablet PO Not Given BEDTIME RAUL Atropine Sulfate 1 drop 07/27/20 22:23 07/31/20 09:56 Atropine Sulfate 1 % Ophth Jacki 2 Ml Bottle EYE-LEFT 1 drop TID RAUL Administration Bumetanide 0.5 mg 07/27/20 22:23 07/31/20 09:29 Bumetanide 1 Mg Tablet PO Not Given BID RAUL Protocol Calcitriol 0.25 mcg 07/28/20 09:00 07/31/20 09:29 Calcitriol 0.25 Mcg Capsule PO 0.25 mcg DAILY [facility] Administration Cyanocobalamin 1,000 mcg 08/15/20 09:00 Cyanocobalamin (Vitamin B-12) 1,000 Mcg/Ml Vial IM Q28D [facility] Docusate Sodium 100 mg 07/27/20 22:23 Docusate Sodium 100 Mg Capsule PO DAILY PRN Constipation Erythromycin 1 cm 07/29/20 13:00 07/31/20 09:29 Erythromycin Base 0.5% Oph Oin 1 Gm Tube EYE-LEFT 1 cm QID [facility] Administration Fluticasone Propionate 1 spray 07/28/20 09:00 07/31/20 09:56 Fluticasone Propionate Nasal 16 Gm [place] NOSTRIL-B Not Given DAILY [facility] Heparin Sodium (Porcine) 5,000 unit 07/29/20 17:00 07/31/20 05:40 Heparin Sodium,Porcine 5,000 Unit/Ml Vial SUBCUT 5,000 unit Q12H [facility] Administration Vancomycin HCl 750 mg/ Sodium 265 mls @ 265 mls/hr 07/29/20 17:00 07/30/20 18:05 Chloride IV Infused Q24H [facility] Infusion Piperacillin Sod/Tazobactam 50 mls @ 100 mls/hr 07/28/20 01:00 07/31/20 10:02 Sod 3.375 gm/ Sodium Chloride IV Infused Q8H [facility] Infusion Insulin Human Lispro 0 unit 07/28/20 07:30 07/31/20 11:46 Insulin Lispro 100 Unit/Ml 3 Ml Vial SUBCUT Not Given QIDACHS [facility] Protocol Loratadine 10 mg 07/28/20 09:00 07/31/20 09:57 Loratadine 10 Mg Tablet PO Not Given DAILY [facility] Metoprolol Tartrate 50 mg 07/27/20 22:23 07/31/20 09:59 Metoprolol Tartrate 50 Mg Tablet PO 50 mg BID [facility] Administration Protocol Morphine Sulfate 4 mg 07/27/20 22:23 07/29/20 18:35 Morphine Sulfate 4 Mg/Ml Cartridge IVPUSH 4 mg Q4H PRN Administration Pain, Severe (Pain Scale 7-10) Non-Formulary Medication 1 drop 07/28/20 09:00 Timolol Maleate EYE-RIGHT DAILY [facility] Omeprazole 20 mg 07/28/20 06:30 07/31/20 05:40 Omeprazole 20 Mg Capsule.Dr PO 20 mg DAILY@0630 [facility] Administration Ondansetron HCl 4 mg 07/27/20 22:23 07/27/20 22:41 Ondansetron Hcl 4 Mg/2 Ml Vial IVPUSH 4 mg Q8H PRN Administration Nausea and Vomiting Pharmacy Consult 1 each 07/27/20 16:25 Consult Rx Perform Med Rec MISCELLANE ONCE PRN Consult order Pharmacy Consult 1 each 07/27/20 16:38 Consult Rx Vancomycin Dosing MISCELLANE DAILY PRN Consult order Polyethylene Glycol 17 gm 07/28/20 09:00 07/31/20 09:57 Polyethylene Glycol 3350 17 Gm Powd.Pack PO Not Given DAILY [facility] Prednisolone Acetate 1 drop 07/28/20 09:00 07/31/20 10:02 Prednisolone Acetate 1 % Oph Susp 5 Ml Drpbtl EYE-LEFT Not Given DAILY [facility] Sevelamer Carbonate 800 mg 07/28/20 17:00 07/31/20 12:03 Sevelamer Carbonate Tablet 800 Mg Tablet PO Not Given TIDWM [facility] Sodium Chloride 3 ml 07/28/20 00:00 07/31/20 09:26 0.9 % Sodium Chloride Flush 3 Ml Syringe IVFLUSH 3 ml QSHIFT [facility] Administration Vitamin D 50 mcg 07/28/20 09:00 07/31/20 09:29 Cholecalciferol (Vitamin D3) 25 Mcg Tablet PO 50 mcg DAILY [facility] Administration Labs CBC & Chem 7: 07/31/20 06:05 07/31/20 06:05 Labs: Laboratory Results - last 24 hr 07/29/20 07/30/20 07/30/20 10:28 16:27 20:25 WBC RBC Hgb Hct MCV MCH MCHC RDW Plt Count MPV Absolute Nucleated RBC Nucleated RBC % (auto) Sodium Potassium Chloride Carbon Dioxide Anion Gap BUN Creatinine Estim Creat Clear Calc Estimated GFR POC Glucose 156 H 158 H Random Glucose Calcium Ferritin Vitamin B12 > 2000 H Blood Type Antibody Screen 07/31/20 07/31/20 07/31/20 06:05 06:05 06:05 WBC 7.3 RBC 2.66 L Hgb 7.3 L Hct 23.3 L MCV 87.6 MCH 27.4 MCHC 31.3 RDW 15.5 Plt Count 240 MPV 9.9 Absolute Nucleated RBC 0.000 Nucleated RBC % (auto) 0.0 Sodium 137 Potassium 4.4 Chloride 110 H Carbon Dioxide 19 L Anion Gap 12 BUN 68 H Creatinine 3.24 H Estim Creat Clear Calc 13.8 Estimated GFR 14 POC Glucose Random Glucose 120 H Calcium 8.9 Ferritin Vitamin B12 Blood Type O Positive Antibody Screen NEGATIVE 07/31/20 07/31/20 07/31/20 06:05 07:35 11:29 WBC RBC Hgb Hct MCV MCH MCHC RDW Plt Count MPV Absolute Nucleated RBC Nucleated RBC % (auto) Sodium Potassium Chloride Carbon Dioxide Anion Gap BUN Creatinine Estim Creat Clear Calc Estimated GFR POC Glucose 108 173 H Random Glucose Calcium Ferritin 320 H Vitamin B12 Blood Type Antibody Screen Quality Stroke Does the patient have a stroke diagnosis?: No VTE Prior VTE?: No VTE Risk Level:: Medical - moderate - high VTE Device Contraindication: N/A - Device Ordered VTE Drug Contraindication: Treatment Not Indicated Assessment and Plan (1) Osteomyelitis of great toe of right foot: Status: Acute (2) PAD (peripheral artery disease): Status: Acute Assessment and Plan: hospital d#5 75yo F with DM2, HTN, PAD, abnormal stress test back in April [facility] in [facility] with nonhealing gangrenous R great toe # acute osteomyelitis R great toe with gangrene # PAD (R iliac artery occlusion) # suspect underlying CAD - previously treated at last admission in April with long-term IV ertapenem - IV vanco + pip/anny d#4; follow vanco trough - per Vascular Surgery needs fem-fem bypass L->R, without which an amputation site would not heal properly. But she had an abnormal stress test (04/20/20 inferior perfusion defect as well as transient ischemic dilatation) indicating likely multivessel disease. She refuses cardiac catheterization, however. Without revascularization, the only viable option is a BKA. She also refuses blood transfusion and as such will not be able to undergo vascular surgery at this institution. 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 avoid nephrotoxins. if she consents to a contrast study, recommend pre- and post-contrast IV hydration # normocytic anemia - likely anemia of CKD + due to underlying osteomyelitis but check FOBT. T+S active but refuses transfusion. epo given as per Nephrology 07/30 # severe constipation - continue bowel regimen # B12 deficiency - on IM repletion monthly # HTN - refusing medication (amlodipine + metoprolol). per psychiatry evaluation last admission pt competent to make own decision. continue to revisit. # L eye blepharitis - improving with erythromycin ointment, artificial tears # DM2 - correction-dose lispro # VTE ppx - UFH
--- NOTE | 2020-07-31 15:36 | MHC.CLN ---
NUTRITION FOLLOW UP PO DOCUMENTATION SHOWS PATIENT EATING 50-100% AT MEALS. CONTINUE CURRENT DIET AND SUPPLEMENTS.
--- NOTE | 2020-07-31 15:48 | PC.NURSE ---
Skin assessment completed today. Gangrenous right great toe. Reddened and swollen left eye.
[2020-07-31 16:35] LABS: Glucose, Whole Blood 154 mg/dL (60-115)
--- NOTE | 2020-07-31 16:36 | PM.PNNEP ---
Subjective Subjective Date of Service: 07/31/20 Interval history: still refuses cardiac cath + transfusion and would not want HD Physical Exam Vital Signs: Vital Signs: Last Vital Signs Temp 97.5 F 07/31/20 15:14 Pulse 79 07/31/20 15:14 Resp 14 07/31/20 15:14 BP 166/72 H 07/31/20 15:14 Pulse Ox 97 07/31/20 15:14 Body Mass Index 23.1 Gen: in NAD, legally blind HEENT: edema of L upper and lower eyelids, sclera anicteric, moist mucus membranes Neck: supple Lungs: clear to auscultation bilaterally Heart: regular rate and rhythm, no murmurs Abd: soft, non-tender, non-distended Ext: R great toe with dry gangrene, no proximal erythema or purulence Skin: warm/well-perfused Neuro: alert and oriented x3, no focal findings Psych: appropriate affect Objective Data Labs CBC & Chem 7: 07/31/20 06:05 07/31/20 06:05 Labs: Laboratory Results - last 24 hr 07/29/20 07/30/20 07/31/20 10:28 20:25 06:05 WBC 7.3 RBC 2.66 L Hgb 7.3 L Hct 23.3 L MCV 87.6 MCH 27.4 MCHC 31.3 RDW 15.5 Plt Count 240 MPV 9.9 Absolute Nucleated RBC 0.000 Nucleated RBC % (auto) 0.0 Sodium Potassium Chloride Carbon Dioxide Anion Gap BUN Creatinine Estim Creat Clear Calc Estimated GFR POC Glucose 158 H Random Glucose Calcium Ferritin Vitamin B12 > 2000 H Blood Type Antibody Screen 07/31/20 07/31/20 07/31/20 06:05 06:05 06:05 WBC RBC Hgb Hct MCV MCH MCHC RDW Plt Count MPV Absolute Nucleated RBC Nucleated RBC % (auto) Sodium 137 Potassium 4.4 Chloride 110 H Carbon Dioxide 19 L Anion Gap 12 BUN 68 H Creatinine 3.24 H Estim Creat Clear Calc 13.8 Estimated GFR 14 POC Glucose Random Glucose 120 H Calcium 8.9 Ferritin 320 H Vitamin B12 Blood Type O Positive Antibody Screen NEGATIVE 07/31/20 07/31/20 07/31/20 07:35 11:29 16:26 WBC RBC Hgb Hct MCV MCH MCHC RDW Plt Count MPV Absolute Nucleated RBC Nucleated RBC % (auto) Sodium Potassium Chloride Carbon Dioxide Anion Gap BUN Creatinine Estim Creat Clear Calc Estimated GFR POC Glucose 108 173 H 154 H Random Glucose Calcium Ferritin Vitamin B12 Blood Type Antibody Screen Microbiology Microbiology Results: Microbiology 07/27/20 17:11 Blood - Venous Blood Culture - Preliminary No growth after 48 hours. 07/27/20 17:10 Blood - Venous Blood Culture - Preliminary No growth after 48 hours. Assessment & Plan Time Spent With Patient Time: 75yo F with DM2, HTN, PAD, abnormal stress test back in April sent in from [facility] with nonhealing gangrenous R great toe -Mild KRYSTYNA - Better -CKD 4/5 at baseline -Acute osteomyelitis R great toe with gangrene - PAD (R iliac artery occlusion) -likely underlying CAD Avoid Nephrotoxins On Vanco and Zosyn- Follow Vanc levels Per Vascular Surgery needs fem-fem bypass L->R, Needs a cardiac cath She refuses cardiac catheterization If She agrees for a cath - Suggest IVF 100 ml 8 hrs pre and post cath likely anemia of CKD - refuses blood transfusion- ? Epo def - % sat is 20% - Fe stores OK Epo- 20 K x 1 dose given yesterday Total time spent is greater than 50% in coordination of care (as documented) at patient's floor/unit and/or counseling patient: Procedures Date of Service Date of Service: 07/31/20 Progress Note: Quality Stroke Does the patient have a stroke diagnosis?: No
[2020-07-31 17:26] LABS: Vancomycin Random 15.7 mcg/mL (15-20)
[2020-07-31 20:49] LABS: Glucose, Whole Blood 161 mg/dL (60-115)
[2020-08-01] VITALS (7 sets, daily range): BP systolic 140–176; BP diastolic 63–70; PULSE 75–83; RESP 16–18; TEMP 36–36.8; O2SAT 97
[2020-08-01] MEDS: Piperacillin Sodium/Tazobactam 3.375 GM in 0.9 % Sodium Chloride 50 ML IV ×3 (00:16→16:46)
[2020-08-01] MEDS: Acetaminophen 325 MG TABLET 650 MG PO ×3 (04:08→22:46)
[2020-08-01] MEDS: Heparin Sodium,Porcine 5,000 UNIT/ML VIAL 5000 UNIT SUBCUT ×2 (06:10→18:22)
[2020-08-01] MEDS: Omeprazole 20 MG CAPSULE.DR PO (06:10)
[2020-08-01 08:03] LABS: Glucose, Whole Blood 119 mg/dL (60-115)
[2020-08-01] MEDS: calcitrioL 0.25 MCG CAPSULE PO (09:20)
[2020-08-01] MEDS: Ascorbic Acid 250 MG TABLET PO ×2 (09:20→22:45)
[2020-08-01] MEDS: Erythromycin Base 0.5% Oph Oin 1 GM TUBE 1 CM EYE-LEFT ×3 (09:20→22:46)
[2020-08-01] MEDS: Aspirin Enteric Coated 81 MG TABLET.DR PO (09:20)
[2020-08-01] MEDS: Cholecalciferol (Vitamin D3) 25 MCG TABLET 50 MCG PO (09:20)
[2020-08-01] MEDS: Atropine Sulfate 1 % Ophth Sol 2 ML BOTTLE 1 DROP EYE-LEFT ×3 (09:21→22:46)
[2020-08-01] MEDS: Artificial Tears 15 ML DROPS 2 DROP EYE-LEFT ×3 (09:21→22:45)
[2020-08-01] MEDS: 0.9 % Sodium Chloride Flush 3 ML SYRINGE IVFLUSH ×3 (09:23→22:46)
[2020-08-01 11:41] LABS: Glucose, Whole Blood 164 mg/dL (60-115)
--- NOTE | 2020-08-01 14:12 | P.PNVS_ITS ---
Subjective Subjective Date of Service: 08/01/20 Patient reports: no new complaints Physical Exam Vital Signs: Vital Signs: Last Vital Signs Temp 97.7 F 08/01/20 11:22 Pulse 77 08/01/20 11:22 Resp 18 08/01/20 11:22 BP 161/70 H 08/01/20 11:22 Pulse Ox 97 08/01/20 11:22 Body Mass Index 23.1 Const: General: cooperative, healthy appearing and no acute distress Orientation/consciousness: oriented to person, oriented to place and oriented to time HENMT: Head: Yes normal to inspection Neck: Carotids: no bruits Chest: Chest palpation & inspection: normal inspection of the chest Resp: Effort & Inspection: normal respiratory effort and able to speak in complete sentences Auscultation: clear to auscultation bilaterally Cardio: Rate: regular rate Heart sounds: S1 normal heart sound present and S2 normal heart sound present GI: Inspection: Yes normal to inspection Skin: General skin exam: no rashes or lesions noted Wounds: wounds noted (Right great toe gangrene) Neuro: General: oriented to person, oriented to place, oriented to time and CN's II-XI intact bilaterally Extrem: General: Yes normal to inspection, Yes full ROM and Yes no clubbing, cyanosis or edema Psych: Appearance: grossly normal and well kempt Speech and movement: Normal speech and movement present Affect: normal affect Progress Note: A&P Assessment and plan (1) PAD (peripheral artery disease): Status: Acute Assessment and Plan: Patient for femoral to femoral bypass. Cardiology input appreciated in apparently cardiac catheterization is now not needed. I have discussed the procedure in detail with the patient including risks benefits complications. In addition we did discuss the importance of the potential of blood transfusion as well. She is in agreement. She would like me to have a discussion with her sister tomorrow regarding this. If all are agreeable we will schedule soon thereafter. Thank you for allowing us to assist in her care. If there are any questions or concerns please do not hesitate to contact us. Fall Risk Details Current Medications: Current Medications Generic Name Dose Route Start Last Admin Trade Name Freq PRN Reason Stop Dose Admin Acetaminophen 650 mg 07/27/20 22:23 08/01/20 09:20 Acetaminophen 325 Mg Tablet PO 650 mg Q6H PRN Administration Pain, Mild (Pain Scale 1-3) Amlodipine Besylate 10 mg 07/28/20 09:00 08/01/20 09:25 Amlodipine Besylate 5 Mg Tablet PO Not Given DAILY [facility] Protocol Artificial Tears 2 drop 07/29/20 13:00 08/01/20 09:21 Artificial Tears 15 Ml Drops EYE-LEFT 2 drop QID RAUL Administration Ascorbic Acid 250 mg 07/28/20 09:00 08/01/20 09:20 Ascorbic Acid 250 Mg Tablet PO 250 mg BID [facility] Administration Aspirin 81 mg 07/28/20 09:00 08/01/20 09:20 Aspirin Enteric Coated 81 Mg Tablet.Dr PO 81 mg DAILY [facility] Administration Atorvastatin Calcium 80 mg 07/27/20 22:23 07/31/20 21:27 Atorvastatin Calcium 80 Mg Tablet PO Not Given BEDTIME [facility] Atropine Sulfate 1 drop 07/27/20 22:23 08/01/20 09:21 Atropine Sulfate 1 % Ophth Jacki 2 Ml Bottle EYE-LEFT 1 drop TID [facility] Administration Bumetanide 0.5 mg 07/27/20 22:23 08/01/20 09:22 Bumetanide 1 Mg Tablet PO Not Given BID [facility] Protocol Calcitriol 0.25 mcg 07/28/20 09:00 08/01/20 09:20 Calcitriol 0.25 Mcg Capsule PO 0.25 mcg DAILY [facility] Administration Cyanocobalamin 1,000 mcg 08/15/20 09:00 Cyanocobalamin (Vitamin B-12) 1,000 Mcg/Ml Vial IM Q28D [facility] Docusate Sodium 100 mg 07/27/20 22:23 Docusate Sodium 100 Mg Capsule PO DAILY PRN Constipation Erythromycin 1 cm 07/29/20 13:00 08/01/20 09:20 Erythromycin Base 0.5% Oph Oin 1 Gm Tube EYE-LEFT 1 cm QID [facility] Administration Fluticasone Propionate 1 spray 07/28/20 09:00 08/01/20 09:33 Fluticasone Propionate Nasal 16 Gm [place] NOSTRIL-B Not Given DAILY [facility] Heparin Sodium (Porcine) 5,000 unit 07/29/20 17:00 08/01/20 06:10 Heparin Sodium,Porcine 5,000 Unit/Ml Vial SUBCUT 5,000 unit Q12H [facility] Administration Piperacillin Sod/Tazobactam 50 mls @ 100 mls/hr 07/28/20 01:00 08/01/20 12:02 Sod 3.375 gm/ Sodium Chloride IV Infused Q8H [facility] Infusion Vancomycin HCl 750 mg/ Sodium 265 mls @ 265 mls/hr 08/01/20 17:00 Chloride IV Q48H [facility] Sodium Chloride 500 mls @ 125 mls/hr 08/03/20 01:00 Ns IV 08/03/20 08:59 .Q4H [facility] Insulin Human Lispro 0 unit 07/28/20 07:30 08/01/20 12:01 Insulin Lispro 100 Unit/Ml 3 Ml Vial SUBCUT Not Given QIDACHS [facility] Protocol Loratadine 10 mg 07/28/20 09:00 08/01/20 09:23 Loratadine 10 Mg Tablet PO Not Given DAILY [facility] Metoprolol Tartrate 50 mg 07/27/20 22:23 08/01/20 09:23 Metoprolol Tartrate 50 Mg Tablet PO Not Given BID [facility] Protocol Morphine Sulfate 4 mg 07/27/20 22:23 07/29/20 18:35 Morphine Sulfate 4 Mg/Ml Cartridge IVPUSH 4 mg Q4H PRN Administration Pain, Severe (Pain Scale 7-10) Non-Formulary Medication 1 drop 07/28/20 09:00 Timolol Maleate EYE-RIGHT DAILY [facility] Omeprazole 20 mg 07/28/20 06:30 08/01/20 06:10 Omeprazole 20 Mg Capsule.Dr PO 20 mg DAILY@0630 [facility] Administration Ondansetron HCl 4 mg 07/27/20 22:23 07/27/20 22:41 Ondansetron Hcl 4 Mg/2 Ml Vial IVPUSH 4 mg Q8H PRN Administration Nausea and Vomiting Pharmacy Consult 1 each 07/27/20 16:25 Consult Rx Perform Med Rec MISCELLANE ONCE PRN Consult order Pharmacy Consult 1 each 07/27/20 16:38 Consult Rx Vancomycin Dosing MISCELLANE DAILY PRN Consult order Polyethylene Glycol 17 gm 07/28/20 09:00 08/01/20 09:23 Polyethylene Glycol 3350 17 Gm Powd.Pack PO Not Given DAILY [facility] Sevelamer Carbonate 800 mg 07/28/20 17:00 08/01/20 12:02 Sevelamer Carbonate Tablet 800 Mg Tablet PO Not Given TIDWM [facility] Sodium Chloride 3 ml 07/28/20 00:00 08/01/20 09:23 0.9 % Sodium Chloride Flush 3 Ml Syringe IVFLUSH 3 ml QSHIFT [facility] Administration Vitamin D 50 mcg 07/28/20 09:00 08/01/20 09:20 Cholecalciferol (Vitamin D3) 25 Mcg Tablet PO 50 mcg DAILY [facility] Administration Time Spent With Patient Time: Total time spent is greater than 50% in coordination of care (as documented) at patient's floor/unit and/or counseling patient: Time with patient: 25 - 35 minutes Procedures Date of Service Date of Service: 08/01/20 Quality Stroke Does the patient have a stroke diagnosis?: No VTE Prior VTE?: No VTE Risk Level:: Medical - moderate - high VTE Device Contraindication: N/A - Device Ordered VTE Drug Contraindication: Treatment Not Indicated
--- NOTE | 2020-08-01 14:44 | P.PNIM_ITS ---
Subjective Subjective Date of Service: 08/01/20 Interval History: No new complaints Now willing to undergo fem/fem bypass and blood transfusion if necessary Physical Exam Vital Signs: Vital Signs: Last Vital Signs Temp 97.7 F 08/01/20 11:22 Pulse 77 08/01/20 11:22 Resp 18 08/01/20 11:22 BP 161/70 H 08/01/20 11:22 Pulse Ox 97 08/01/20 11:22 Body Mass Index 23.1 Gen: in NAD, legally blind HEENT: edema of L upper and lower eyelids, sclera anicteric, moist mucus membranes Neck: supple Lungs: clear to auscultation bilaterally Heart: regular rate and rhythm, no murmurs Abd: soft, non-tender, non-distended Ext: R great toe with dry gangrene, no proximal erythema or purulence Skin: warm/well-perfused Neuro: alert and oriented x3, no focal findings Psych: appropriate affect Objective Data Current Medications Generic Name Dose Route Start Last Admin Trade Name Freq PRN Reason Stop Dose Admin Acetaminophen 650 mg 07/27/20 22:23 08/01/20 09:20 Acetaminophen 325 Mg Tablet PO 650 mg Q6H PRN Administration Pain, Mild (Pain Scale 1-3) Amlodipine Besylate 10 mg 07/28/20 09:00 08/01/20 09:25 Amlodipine Besylate 5 Mg Tablet PO Not Given DAILY [facility] Protocol Artificial Tears 2 drop 07/29/20 13:00 08/01/20 09:21 Artificial Tears 15 Ml Drops EYE-LEFT 2 drop QID RAUL Administration Ascorbic Acid 250 mg 07/28/20 09:00 08/01/20 09:20 Ascorbic Acid 250 Mg Tablet PO 250 mg BID [facility]UL Administration Aspirin 81 mg 07/28/20 09:00 08/01/20 09:20 Aspirin Enteric Coated 81 Mg Tablet.Dr PO 81 mg DAILY [facility] Administration Atorvastatin Calcium 80 mg 07/27/20 22:23 07/31/20 21:27 Atorvastatin Calcium 80 Mg Tablet PO Not Given BEDTIME [facility] Atropine Sulfate 1 drop 07/27/20 22:23 08/01/20 09:21 Atropine Sulfate 1 % Ophth Jacki 2 Ml Bottle EYE-LEFT 1 drop TID [facility] Administration Bumetanide 0.5 mg 07/27/20 22:23 08/01/20 09:22 Bumetanide 1 Mg Tablet PO Not Given BID [facility] Protocol Calcitriol 0.25 mcg 07/28/20 09:00 08/01/20 09:20 Calcitriol 0.25 Mcg Capsule PO 0.25 mcg DAILY [facility] Administration Cyanocobalamin 1,000 mcg 08/15/20 09:00 Cyanocobalamin (Vitamin B-12) 1,000 Mcg/Ml Vial IM Q28D [facility] Docusate Sodium 100 mg 07/27/20 22:23 Docusate Sodium 100 Mg Capsule PO DAILY PRN Constipation Erythromycin 1 cm 07/29/20 13:00 08/01/20 09:20 Erythromycin Base 0.5% Oph Oin 1 Gm Tube EYE-LEFT 1 cm QID [facility] Administration Fluticasone Propionate 1 spray 07/28/20 09:00 08/01/20 09:33 Fluticasone Propionate Nasal 16 Gm [place] NOSTRIL-B Not Given DAILY [facility] Heparin Sodium (Porcine) 5,000 unit 07/29/20 17:00 08/01/20 06:10 Heparin Sodium,Porcine 5,000 Unit/Ml Vial SUBCUT 5,000 unit Q12H [facility] Administration Piperacillin Sod/Tazobactam 50 mls @ 100 mls/hr 07/28/20 01:00 08/01/20 12:02 Sod 3.375 gm/ Sodium Chloride IV Infused Q8H [facility] Infusion Vancomycin HCl 750 mg/ Sodium 265 mls @ 265 mls/hr 08/01/20 17:00 Chloride IV Q48H [facility] Sodium Chloride 500 mls @ 125 mls/hr 08/03/20 01:00 Ns IV 08/03/20 08:59 .Q4H [facility] Insulin Human Lispro 0 unit 07/28/20 07:30 08/01/20 12:01 Insulin Lispro 100 Unit/Ml 3 Ml Vial SUBCUT Not Given QIDACHS [facility] Protocol Loratadine 10 mg 07/28/20 09:00 08/01/20 09:23 Loratadine 10 Mg Tablet PO Not Given DAILY [facility] Metoprolol Tartrate 50 mg 07/27/20 22:23 08/01/20 09:23 Metoprolol Tartrate 50 Mg Tablet PO Not Given BID [facility] Protocol Morphine Sulfate 4 mg 07/27/20 22:23 07/29/20 18:35 Morphine Sulfate 4 Mg/Ml Cartridge IVPUSH 4 mg Q4H PRN Administration Pain, Severe (Pain Scale 7-10) Non-Formulary Medication 1 drop 07/28/20 09:00 Timolol Maleate EYE-RIGHT DAILY [facility] Omeprazole 20 mg 07/28/20 06:30 08/01/20 06:10 Omeprazole 20 Mg Capsule. PO 20 mg DAILY@0630 [facility] Administration Ondansetron HCl 4 mg 07/27/20 22:23 07/27/20 22:41 Ondansetron Hcl 4 Mg/2 Ml Vial IVPUSH 4 mg Q8H PRN Administration Nausea and Vomiting Pharmacy Consult 1 each 07/27/20 16:25 Consult Rx Perform Med Rec MISCELLANE ONCE PRN Consult order Pharmacy Consult 1 each 07/27/20 16:38 Consult Rx Vancomycin Dosing MISCELLANE DAILY PRN Consult order Polyethylene Glycol 17 gm 07/28/20 09:00 08/01/20 09:23 Polyethylene Glycol 3350 17 Gm Powd.Pack PO Not Given DAILY [facility] Sevelamer Carbonate 800 mg 07/28/20 17:00 08/01/20 12:02 Sevelamer Carbonate Tablet 800 Mg Tablet PO Not Given TIDWM [facility] Sodium Chloride 3 ml 07/28/20 00:00 08/01/20 09:23 0.9 % Sodium Chloride Flush 3 Ml Syringe IVFLUSH 3 ml QSHIFT [facility] Administration Vitamin D 50 mcg 07/28/20 09:00 08/01/20 09:20 Cholecalciferol (Vitamin D3) 25 Mcg Tablet PO 50 mcg DAILY [facility] Administration Labs CBC & Chem 7: 07/31/20 06:05 07/31/20 06:05 Labs: Laboratory Results - last 24 hr 07/31/20 07/31/20 07/31/20 16:26 16:37 20:39 POC Glucose 154 H 161 H Random Vancomycin 15.7 08/01/20 08/01/20 07:56 11:21 POC Glucose 119 H 164 H Random Vancomycin Quality Stroke Does the patient have a stroke diagnosis?: No VTE Prior VTE?: No VTE Risk Level:: Medical - moderate - high VTE Device Contraindication: N/A - Device Ordered VTE Drug Contraindication: Treatment Not Indicated Assessment and Plan (1) Osteomyelitis of great toe of right foot: Status: Acute (2) PAD (peripheral artery disease): Status: Acute Assessment and Plan: hospital d#6 75yo F with DM2, HTN, PAD, abnormal stress test back in April sent in from [facility] with nonhealing gangrenous R great toe # acute osteomyelitis R great toe with gangrene # PAD (R iliac artery occlusion) # suspect underlying CAD - previously treated at last admission in April with long-term IV ertapenem - IV vanco + pip/anny d#5; vanco trough therapeutic - per Vascular Surgery needs fem-fem bypass L->R, without which an amputation site would not heal properly. But she had an abnormal stress test (04/20/20 inferior perfusion defect as well as transient ischemic dilatation) indicating likely multivessel disease. Per Cardiology, she cardiac catheterization would not change her surgical risk and will add to procedural complications including worsening of renal function. Without revascularization, the only viable option is a BKA. 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 avoid nephrotoxins. will give pre- and post- angiogram IV normal saline # normocytic anemia - likely anemia of CKD + due to underlying osteomyelitis but check FOBT. T+S active and now agreeable to transfusion if needed. epo given as per Nephrology 07/30 # severe constipation - continue bowel regimen # B12 deficiency - on IM repletion monthly # HTN - refusing medication (amlodipine + metoprolol). per psychiatry evaluation last admission pt competent to make own decision. continue to revisit. # L eye blepharitis - improving with erythromycin ointment, artificial tears # DM2 - correction-dose lispro # VTE ppx - UFH
[2020-08-01 16:40] LABS: Glucose, Whole Blood 162 mg/dL (60-115)
[2020-08-01 17:26] LABS: Vancomycin Random 12.9 mcg/mL (15-20)
[2020-08-01] MEDS: vancomycin HCL 750 MG in 0.9 % Sodium Chloride 250 ML 265 MG IV (18:21)
[2020-08-01 20:31] LABS: Glucose, Whole Blood 163 mg/dL (60-115)
[2020-08-01] MEDS: Metoprolol Tartrate 50 MG TABLET PO (22:46)
[2020-08-02] VITALS (7 sets, daily range): BP systolic 145–168; BP diastolic 60–74; PULSE 60–90; RESP 18–20; TEMP 36.3–37.1; O2SAT 96–98
[2020-08-02] MEDS: Piperacillin Sodium/Tazobactam 3.375 GM in 0.9 % Sodium Chloride 50 ML IV ×3 (01:51→16:43)
[2020-08-02] MEDS: Heparin Sodium,Porcine 5,000 UNIT/ML VIAL 5000 UNIT SUBCUT ×2 (05:52→16:43)
[2020-08-02 08:07] LABS: Glucose, Whole Blood 182 mg/dL (60-115)
[2020-08-02 09:04] LABS: Hematocrit 24.6 % (37-47); Hemoglobin 7.7 g/dl (12.0-16.0); Mean Corpuscular HGB Conc 31.3 g/dl (31.0-35.0); Mean Corpuscular Hemoglobin 27.6 pg (27.0-33.0); Mean Corpuscular Volume 88.2 fL (80-98); Mean Platelet Volume 9.9 fL (9.4-12.3); Platelet Count 258 X10*3/uL (160-400); Red Blood Count 2.79 X10*6/uL (4.20-5.50); Red Cell Distribution Width 15.4 % (11.0-16.0); White Blood Count 9.6 X10*3/uL (4.8-10.8)
[2020-08-02 09:11] LABS: Partial Thromboplastin Time 48.3 SEC (24.1-38.0)
[2020-08-02 09:15] LABS: Estimated Average Glucose 131 mg/dL; Hemoglobin A1C 94.5927 umol/L; Hemoglobin A1c % 6.2 %
[2020-08-02 09:19] LABS: Anion Gap 11 (12-20); Blood Urea Nitrogen 49 mg/dL (9-16); C Reactive Protein 0.24 mg/dL (< or = 0.50); Calcium 8.9 mg/dL (8.4-10.2); Carbon Dioxide 21 mmol/L (22-29); Chloride 111 mmol/L (96-108); Creatinine Clr Calc Pharmacy 13.8; Estimated Glomerular Filt Rate 14; Glucose Random 186 mg/dL (60-115); Potassium 4.1 mmol/L (3.3-5.1); Sodium 139 mmol/L (135-145)
[2020-08-02] MEDS: Cholecalciferol (Vitamin D3) 25 MCG TABLET 50 MCG PO (09:43)
[2020-08-02] MEDS: Erythromycin Base 0.5% Oph Oin 1 GM TUBE 1 CM EYE-LEFT ×4 (09:43→21:00)
[2020-08-02] MEDS: Aspirin Enteric Coated 81 MG TABLET.DR PO (09:43)
[2020-08-02] MEDS: Ascorbic Acid 250 MG TABLET PO ×2 (09:43→20:59)
[2020-08-02] MEDS: calcitrioL 0.25 MCG CAPSULE PO (09:43)
[2020-08-02] MEDS: 0.9 % Sodium Chloride Flush 3 ML SYRINGE IVFLUSH ×3 (09:45→23:36)
--- NOTE | 2020-08-02 09:45 | MHC.CM.NN ---
EMR REVIEWED, CM IN ROOM WHEN PT WAS MTG W/DR GAMBLE AND HOSPITALIST, PT GIVING VERBAL AGREEMENT FOR TRANSFUSION IF NECESSARY, FEM-FEM BIPAP AND GREAT TOE AMP TOMORROW 08/03/20, CM WILL CONT TO FOLLOW D/C NEEDS. D/C PLAN: [facility]RICK LEWIS FOR STR, [facility] FOR BLS TRANSPORT.
[2020-08-02] MEDS: Artificial Tears 15 ML DROPS 2 DROP EYE-LEFT ×4 (09:59→20:59)
[2020-08-02] MEDS: Atropine Sulfate 1 % Ophth Sol 2 ML BOTTLE 1 DROP EYE-LEFT ×3 (10:01→20:59)
--- NOTE | 2020-08-02 11:42 | HO.VASCPN ---
Subjective Subjective Date of Service: 08/02/20 Patient reports: no new complaints Interval history: 75-year-old diabetic female for vascular follow-up of nonhealing right great toe ulcer. She is in need of a vascular bypass. She has been doing relatively well overnight. She has requested that I have a conversation with her sister regarding the operation. The patient was seen in conjunction with the hospitalist team. Physical Exam Vital Signs: Vital Signs: Last Vital Signs Temp 97.4 F 08/02/20 07:57 Pulse 83 08/02/20 07:57 Resp 18 08/02/20 07:57 BP 164/74 H 08/02/20 07:57 Pulse Ox 98 08/02/20 07:57 Body Mass Index 23.1 Const: General: cooperative, healthy appearing and no acute distress Orientation/consciousness: oriented to person, oriented to place and oriented to time HENMT: Head: Yes normal to inspection Neck: Carotids: no bruits Chest: Chest palpation & inspection: normal inspection of the chest Resp: Effort & Inspection: normal respiratory effort and able to speak in complete sentences Auscultation: clear to auscultation bilaterally Cardio: Rate: regular rate Heart sounds: S1 normal heart sound present and S2 normal heart sound present GI: Inspection: Yes normal to inspection Skin: General skin exam: no rashes or lesions noted Wounds: wounds noted (Right great toe gangrene) Neuro: General: oriented to person, oriented to place, oriented to time and CN's II-XI intact bilaterally Extrem: General: Yes normal to inspection, Yes full ROM and Yes no clubbing, cyanosis or edema Psych: Appearance: grossly normal and well kempt Speech and movement: Normal speech and movement present Affect: normal affect Progress Note: A&P Assessment and plan (1) PAD (peripheral artery disease): Status: Acute Assessment and Plan: In short patient has a nonhealing right great toe ulceration. The patient will require a femoral to femoral bypass with right great toe amputation. I had a detailed discussion with the patient regarding risks benefits complications. After much discussion she was in agreement. In addition she did consent to use of blood products. I had a a telephone conversation with her Mayuri Peoples was in [place]. Her telephone #[phone]. I did review the procedure in detail with her. She was in agreement as well. I also did review with her that cardiology did not feel a coronary angiogram was of benefit. We will schedule her for tomorrow. Thank you for allowing us to assist in her care. If there are any questions or concerns please do not hesitate to contact us. Fall Risk Details Current Medications: Current Medications Generic Name Dose Route Start Last Admin Trade Name Steve PRN Reason Stop Dose Admin Acetaminophen 650 mg 07/27/20 22:23 08/01/20 22:46 Acetaminophen 325 Mg Tablet PO 650 mg Q6H PRN Administration Pain, Mild (Pain Scale 1-3) Amlodipine Besylate 10 mg 07/28/20 09:00 08/02/20 09:45 Amlodipine Besylate 5 Mg Tablet PO Not Given DAILY [facility] Protocol Artificial Tears 2 drop 07/29/20 13:00 08/02/20 09:59 Artificial Tears 15 Ml Drops EYE-LEFT 2 drop QID RAUL Administration Ascorbic Acid 250 mg 07/28/20 09:00 08/02/20 09:43 Ascorbic Acid 250 Mg Tablet PO 250 mg BID RAUL Administration Aspirin 81 mg 07/28/20 09:00 08/02/20 09:43 Aspirin Enteric Coated 81 Mg Tablet. PO 81 mg DAILY RAUL Administration Atorvastatin Calcium 80 mg 07/27/20 22:23 08/01/20 22:37 Atorvastatin Calcium 80 Mg Tablet PO Not Given BEDTIME RAUL Atropine Sulfate 1 drop 07/27/20 22:23 08/02/20 10:01 Atropine Sulfate 1 % Ophth Jacki 2 Ml Bottle EYE-LEFT 1 drop TID RAUL Administration Bumetanide 0.5 mg 07/27/20 22:23 08/02/20 09:45 Bumetanide 1 Mg Tablet PO Not Given BID [facility] Protocol Calcitriol 0.25 mcg 07/28/20 09:00 08/02/20 09:43 Calcitriol 0.25 Mcg Capsule PO 0.25 mcg DAILY RAUL Administration Cyanocobalamin 1,000 mcg 08/15/20 09:00 Cyanocobalamin (Vitamin B-12) 1,000 Mcg/Ml Vial IM Q28D RAUL Docusate Sodium 100 mg 07/27/20 22:23 Docusate Sodium 100 Mg Capsule PO DAILY PRN Constipation Erythromycin 1 cm 07/29/20 13:00 08/02/20 09:43 Erythromycin Base 0.5% Oph Oin 1 Gm Tube EYE-LEFT 1 cm QID RAUL Administration Fluticasone Propionate 1 spray 07/28/20 09:00 08/02/20 10:02 Fluticasone Propionate Nasal 16 Gm [place] NOSTRIL-B Not Given DAILY [facility] Heparin Sodium (Porcine) 5,000 unit 07/29/20 17:00 08/02/20 05:52 Heparin Sodium,Porcine 5,000 Unit/Ml Vial SUBCUT 5,000 unit Q12H [facility] Administration Piperacillin Sod/Tazobactam 50 mls @ 100 mls/hr 07/28/20 01:00 08/02/20 10:12 Sod 3.375 gm/ Sodium Chloride IV Infused Q8H [facility] Infusion Vancomycin HCl 750 mg/ Sodium 265 mls @ 265 mls/hr 08/01/20 17:00 08/01/20 20:10 Chloride IV Infused Q48H [facility] Infusion Sodium Chloride 500 mls @ 125 mls/hr 08/03/20 01:00 Ns IV 08/03/20 08:59 .Q4H [facility] Insulin Human Lispro 0 unit 07/28/20 07:30 08/02/20 08:44 Insulin Lispro 100 Unit/Ml 3 Ml Vial SUBCUT Not Given QIDACHS [facility] Protocol Loratadine 10 mg 07/28/20 09:00 08/02/20 09:46 Loratadine 10 Mg Tablet PO Not Given DAILY [facility] Metoprolol Tartrate 50 mg 07/27/20 22:23 08/02/20 10:02 Metoprolol Tartrate 50 Mg Tablet PO Not Given BID [facility] Protocol Non-Formulary Medication 1 drop 07/28/20 09:00 Timolol Maleate EYE-RIGHT DAILY [facility] Omeprazole 20 mg 07/28/20 06:30 08/02/20 05:53 Omeprazole 20 Mg Capsule.Dr PO Not Given DAILY@0630 [facility] Ondansetron HCl 4 mg 07/27/20 22:23 07/27/20 22:41 Ondansetron Hcl 4 Mg/2 Ml Vial IVPUSH 4 mg Q8H PRN Administration Nausea and Vomiting Pharmacy Consult 1 each 07/27/20 16:25 Consult Rx Perform Med Rec MISCELLANE ONCE PRN Consult order Pharmacy Consult 1 each 07/27/20 16:38 Consult Rx Vancomycin Dosing MISCELLANE DAILY PRN Consult order Polyethylene Glycol 17 gm 07/28/20 09:00 08/02/20 09:46 Polyethylene Glycol 3350 17 Gm Powd.Pack PO Not Given DAILY [facility] Sevelamer Carbonate 800 mg 07/28/20 17:00 08/02/20 09:45 Sevelamer Carbonate Tablet 800 Mg Tablet PO Not Given TIDWM RAUL Sodium Chloride 3 ml 07/28/20 00:00 08/02/20 09:45 0.9 % Sodium Chloride Flush 3 Ml Syringe IVFLUSH 3 ml QSHIFT RAUL Administration Vitamin D 50 mcg 07/28/20 09:00 08/02/20 09:43 Cholecalciferol (Vitamin D3) 25 Mcg Tablet PO 50 mcg DAILY RAUL Administration Time Spent With Patient Time: Total time spent is greater than 50% in coordination of care (as documented) at patient's floor/unit and/or counseling patient: Time with patient: Greater than 35 minutes Procedures Date of Service Date of Service: 08/02/20 Quality Stroke Does the patient have a stroke diagnosis?: No VTE Prior VTE?: No VTE Risk Level:: Medical - moderate - high VTE Device Contraindication: N/A - Device Ordered VTE Drug Contraindication: Treatment Not Indicated
[2020-08-02 11:47] LABS: Glucose, Whole Blood 227 mg/dL (60-115)
--- NOTE | 2020-08-02 11:55 | PM.PNNEP ---
Subjective Subjective Date of Service: 08/02/20 Interval history: No new complaints Now willing to undergo fem/fem bypass Scheduled for AM Physical Exam Vital Signs: Vital Signs: Last Vital Signs Temp 97.4 F 08/02/20 07:57 Pulse 83 08/02/20 07:57 Resp 18 08/02/20 07:57 BP 164/74 H 08/02/20 07:57 Pulse Ox 98 08/02/20 07:57 Body Mass Index 23.1 Const General: cooperative, healthy appearing and no acute distress Orientation/consciousness: oriented to person, oriented to place and oriented to time HENMT Head: Yes normal to inspection Neck Carotids: no bruits Chest Chest palpation & inspection: normal inspection of the chest Resp Effort & Inspection: normal respiratory effort and able to speak in complete sentences Auscultation: clear to auscultation bilaterally Cardio Rate: regular rate Heart sounds: S1 normal heart sound present and S2 normal heart sound present GI Inspection: Yes normal to inspection Skin General skin exam: no rashes or lesions noted Wounds: wounds noted (Right great toe gangrene) Neuro General: oriented to person, oriented to place, oriented to time and CN's II-XI intact bilaterally Extrem General: Yes normal to inspection, Yes full ROM and Yes no clubbing, cyanosis or edema Psych Appearance: grossly normal and well kempt Speech and movement: Normal speech and movement present Affect: normal affect Const: General: cooperative, healthy appearing, comfortable, no acute distress, alert and awake Nutritional Appearance: average body habitus Orientation/consciousness: oriented to person, oriented to place, oriented to time and patient oriented x3 Limitations: no limitations HENMT: Other: Unremarkable Head: Yes normal to inspection Ears: hearing grossly normal bilaterally General nose exam: Normal external nose present Face and sinus: Yes normal facial exam Mouth: Normal oral and palatal mucosa present Throat: Yes posterior oropharynx normal Eyes: Other: 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 eyes, scabbing under the left lower eyelid General: appearance normal, both eyes and all related structures Pupils: Equal, round and reactive pupils present Neck: Neck: Yes normal visual inspection Carotids: no bruits Chest: Chest palpation & inspection: normal inspection of the chest Resp: Effort & Inspection: normal respiratory effort, able to speak in complete sentences, no stridor and not tachypneic Auscultation: clear to auscultation bilaterally, no crackles, no rales, no rhonchi and no wheezes Cardio: Jugular venous distension: no JVD Palpation: normal PMI Rate: regular rate Rhythm: regular rhythm Heart sounds: S1 normal heart sound present, S2 normal heart sound present, no gallops, no murmurs and no rubs Bruits: no carotid bruits Peripheral pulses: Peripheral pulses 2+ throughout and dorsalis pedis present (Right side DP signal) GI: Inspection: Yes normal to inspection Palpation (GI): Soft to palpation and nontender Auscultation: normal bowel sounds Back/Spine/Pelvis: Other: unremarkable Thoracic/Lumbar Spine: thoracic and lumbar spine normal to inspection Skin: Other: warm, dry, no rash General skin exam: no rashes or lesions noted Wounds: wounds noted (Right great toe gangrene) Hair: normal Neuro: General: oriented to person, oriented to place, oriented to time, patient oriented x3 and moves all extremities Cranial nerves: Yes CN's II-XII intact bilaterally, Yes Equal, round and reactive pupils present, Yes Normal hearing present and Yes Other cranial nerve findings present Cognition (Neuro): normal cognition Speech: No Abnormal speech present Gait exam (Neuro): Normal gait present Motor exam (neuro): 5/5 motor strength present throughout Extrem: Other: right great toe necrosis General: Yes normal to inspection, Yes no clubbing, cyanosis or edema, Yes no pedal edema, No clubbing, No cyanosis and No edema Psych: Appearance: grossly normal Mental Status: mental status grossly normal and other Speech and movement: Normal speech and movement present Objective Data Labs CBC & Chem 7: 08/02/20 08:41 08/02/20 08:41 Labs: Laboratory Results - last 24 hr 08/01/20 08/01/20 08/01/20 16:24 16:32 20:23 WBC RBC Hgb Hct MCV MCH MCHC RDW Plt Count MPV Absolute Nucleated RBC Nucleated RBC % (auto) APTT Sodium Potassium Chloride Carbon Dioxide Anion Gap BUN Creatinine Estim Creat Clear Calc Estimated GFR POC Glucose 162 H 163 H Random Glucose Estimat Average Glucose Hemoglobin A1c % Calcium C-Reactive Protein Random Vancomycin 12.9 L 08/02/20 08/02/20 08/02/20 07:56 08:41 08:41 WBC RBC Hgb Hct MCV MCH MCHC RDW Plt Count MPV Absolute Nucleated RBC Nucleated RBC % (auto) APTT 48.3 H Sodium 139 Potassium 4.1 Chloride 111 H Carbon Dioxide 21 L Anion Gap 11 L BUN 49 H Creatinine 3.25 H Estim Creat Clear Calc 13.8 Estimated GFR 14 POC Glucose 182 H Random Glucose 186 H D Estimat Average Glucose Hemoglobin A1c % Calcium 8.9 C-Reactive Protein 0.24 Random Vancomycin 08/02/20 08/02/20 08/02/20 08:41 08:41 11:40 WBC 9.6 RBC 2.79 L Hgb 7.7 L Hct 24.6 L MCV 88.2 MCH 27.6 MCHC 31.3 RDW 15.4 Plt Count 258 MPV 9.9 Absolute Nucleated RBC 0.000 Nucleated RBC % (auto) 0.0 APTT Sodium Potassium Chloride Carbon Dioxide Anion Gap BUN Creatinine Estim Creat Clear Calc Estimated GFR POC Glucose 227 H Random Glucose Estimat Average Glucose 131 Hemoglobin A1c % 6.2 Calcium C-Reactive Protein Random Vancomycin Microbiology Microbiology Results: Microbiology 07/27/20 17:11 Blood - Venous Blood Culture - Final No growth after 5 days. 07/27/20 17:10 Blood - Venous Blood Culture - Final No growth after 5 days. Assessment & Plan Assessment and plan (1) PAD (peripheral artery disease): Status: Acute Assessment and Plan: 75yo F with DM2, HTN, PAD, abnormal stress test back in April sent in from [facility] with nonhealing gangrenous R great toe -Mild KRYSTYNA - Better- Close to baseline -CKD 4/5 at baseline -Acute osteomyelitis R great toe with gangrene - PAD (R iliac artery occlusion) -likely underlying CAD Avoid Nephrotoxins On Vanco and Zosyn- Follow Vanc levels Refusing a cardiac cath likely anemia of CKD - now agrees for a blood transfusion- ? Epo def - % sat is 20% - Fe stores OK Epo- 20 K x 1 dose given this week For FEm- Fem bypass soon Will follow Time Spent With Patient Time: Total time spent is greater than 50% in coordination of care (as documented) at patient's floor/unit and/or counseling patient: Procedures Date of Service Date of Service: 08/02/20 Progress Note: Quality Stroke Does the patient have a stroke diagnosis?: No
[2020-08-02 12:17] LABS: Erythrocyte Sedimentation Rate 92 MM/HR (0-20)
--- NOTE | 2020-08-02 13:24 | MHC.CLN ---
FOLLOW UP REVIEWED PO DOCUMENTATION, SHOWING IMPROVED INTAKE, WITH MEALS 50-100%. CONTINUE CURRENT DIET AND SUPPLEMENT.
--- NOTE | 2020-08-02 15:10 | P.PNIM_ITS ---
Subjective Subjective Date of Service: 08/02/20 Interval History: Consents to surgery tomorrow Minimal R toe pain Physical Exam Vital Signs: Vital Signs: Last Vital Signs Temp 97.4 F 08/02/20 12:00 Pulse 82 08/02/20 12:00 Resp 18 08/02/20 12:00 BP 161/70 H 08/02/20 12:00 Pulse Ox 96 08/02/20 12:00 Body Mass Index 23.1 Gen: in NAD, legally blind HEENT: edema of L upper and lower eyelids, sclera anicteric, moist mucus membranes Neck: supple Lungs: clear to auscultation bilaterally Heart: regular rate and rhythm, no murmurs Abd: soft, non-tender, non-distended Ext: R great toe with dry gangrene, no proximal erythema or purulence Skin: warm/well-perfused Neuro: alert and oriented x3, no focal findings Psych: appropriate affect Objective Data Current Medications Generic Name Dose Route Start Last Admin Trade Name Freq PRN Reason Stop Dose Admin Acetaminophen 650 mg 07/27/20 22:23 08/01/20 22:46 Acetaminophen 325 Mg Tablet PO 650 mg Q6H PRN Administration Pain, Mild (Pain Scale 1-3) Amlodipine Besylate 10 mg 07/28/20 09:00 08/02/20 09:45 Amlodipine Besylate 5 Mg Tablet PO Not Given DAILY [facility] Protocol Artificial Tears 2 drop 07/29/20 13:00 08/02/20 14:05 Artificial Tears 15 Ml Drops EYE-LEFT 2 drop QID RAUL Administration Ascorbic Acid 250 mg 07/28/20 09:00 08/02/20 09:43 Ascorbic Acid 250 Mg Tablet PO 250 mg BID RAUL Administration Aspirin 81 mg 07/28/20 09:00 08/02/20 09:43 Aspirin Enteric Coated 81 Mg Tablet.Dr PO 81 mg DAILY RAUL Administration Atorvastatin Calcium 80 mg 07/27/20 22:23 08/01/20 22:37 Atorvastatin Calcium 80 Mg Tablet PO Not Given BEDTIME RAUL Atropine Sulfate 1 drop 07/27/20 22:23 08/02/20 14:06 Atropine Sulfate 1 % Ophth Jacki 2 Ml Bottle EYE-LEFT 1 drop TID RAUL Administration Bumetanide 0.5 mg 07/27/20 22:23 08/02/20 09:45 Bumetanide 1 Mg Tablet PO Not Given BID [facility] Protocol Calcitriol 0.25 mcg 07/28/20 09:00 08/02/20 09:43 Calcitriol 0.25 Mcg Capsule PO 0.25 mcg DAILY RAUL Administration Cyanocobalamin 1,000 mcg 08/15/20 09:00 Cyanocobalamin (Vitamin B-12) 1,000 Mcg/Ml Vial IM Q28D [facility] Docusate Sodium 100 mg 07/27/20 22:23 Docusate Sodium 100 Mg Capsule PO DAILY PRN Constipation Erythromycin 1 cm 07/29/20 13:00 08/02/20 14:06 Erythromycin Base 0.5% Oph Oin 1 Gm Tube EYE-LEFT 1 cm QID [facility] Administration Fluticasone Propionate 1 spray 07/28/20 09:00 08/02/20 10:02 Fluticasone Propionate Nasal 16 Gm [place] NOSTRIL-B Not Given DAILY [facility] Heparin Sodium (Porcine) 5,000 unit 07/29/20 17:00 08/02/20 05:52 Heparin Sodium,Porcine 5,000 Unit/Ml Vial SUBCUT 5,000 unit Q12H [facility] Administration Piperacillin Sod/Tazobactam 50 mls @ 100 mls/hr 07/28/20 01:00 08/02/20 10:12 Sod 3.375 gm/ Sodium Chloride IV Infused Q8H [facility] Infusion Vancomycin HCl 750 mg/ Sodium 265 mls @ 265 mls/hr 08/01/20 17:00 08/01/20 20:10 Chloride IV Infused Q48H [facility] Infusion Sodium Chloride 500 mls @ 125 mls/hr 08/03/20 01:00 Ns IV 08/03/20 08:59 .Q4H [facility] Insulin Human Lispro 0 unit 07/28/20 07:30 08/02/20 13:06 Insulin Lispro 100 Unit/Ml 3 Ml Vial SUBCUT Not Given QIDACHS [facility] Protocol Loratadine 10 mg 07/28/20 09:00 08/02/20 09:46 Loratadine 10 Mg Tablet PO Not Given DAILY [facility] Metoprolol Tartrate 50 mg 07/27/20 22:23 08/02/20 10:02 Metoprolol Tartrate 50 Mg Tablet PO Not Given BID [facility] Protocol Non-Formulary Medication 1 drop 07/28/20 09:00 Timolol Maleate EYE-RIGHT DAILY [facility] Omeprazole 20 mg 07/28/20 06:30 08/02/20 05:53 Omeprazole 20 Mg Capsule. PO Not Given DAILY@0630 [facility] Ondansetron HCl 4 mg 07/27/20 22:23 07/27/20 22:41 Ondansetron Hcl 4 Mg/2 Ml Vial IVPUSH 4 mg Q8H PRN Administration Nausea and Vomiting Pharmacy Consult 1 each 07/27/20 16:25 Consult Rx Perform Med Rec MISCELLANE ONCE PRN Consult order Pharmacy Consult 1 each 07/27/20 16:38 Consult Rx Vancomycin Dosing MISCELLANE DAILY PRN Consult order Polyethylene Glycol 17 gm 07/28/20 09:00 08/02/20 09:46 Polyethylene Glycol 3350 17 Gm Powd.Pack PO Not Given DAILY [facility] Sevelamer Carbonate 800 mg 07/28/20 17:00 08/02/20 13:06 Sevelamer Carbonate Tablet 800 Mg Tablet PO Not Given TIDWM [facility] Sodium Chloride 3 ml 07/28/20 00:00 08/02/20 09:45 0.9 % Sodium Chloride Flush 3 Ml Syringe IVFLUSH 3 ml QSHIFT [facility] Administration Vitamin D 50 mcg 07/28/20 09:00 08/02/20 09:43 Cholecalciferol (Vitamin D3) 25 Mcg Tablet PO 50 mcg DAILY [facility] Administration Labs CBC & Chem 7: 08/02/20 08:41 08/02/20 08:41 Labs: Laboratory Results - last 24 hr 08/01/20 08/01/20 08/01/20 16:24 16:32 20:23 WBC RBC Hgb Hct MCV MCH MCHC RDW Plt Count MPV Absolute Nucleated RBC Nucleated RBC % (auto) ESR APTT Sodium Potassium Chloride Carbon Dioxide Anion Gap BUN Creatinine Estim Creat Clear Calc Estimated GFR POC Glucose 162 H 163 H Random Glucose Estimat Average Glucose Hemoglobin A1c % Calcium C-Reactive Protein Random Vancomycin 12.9 L 08/02/20 08/02/20 08/02/20 07:56 08:41 08:41 WBC RBC Hgb Hct MCV MCH MCHC RDW Plt Count MPV Absolute Nucleated RBC Nucleated RBC % (auto) ESR 92 H APTT Sodium 139 Potassium 4.1 Chloride 111 H Carbon Dioxide 21 L Anion Gap 11 L BUN 49 H Creatinine 3.25 H Estim Creat Clear Calc 13.8 Estimated GFR 14 POC Glucose 182 H Random Glucose 186 H D Estimat Average Glucose Hemoglobin A1c % Calcium 8.9 C-Reactive Protein 0.24 Random Vancomycin 08/02/20 08/02/20 08/02/20 08:41 08:41 08:41 WBC 9.6 RBC 2.79 L Hgb 7.7 L Hct 24.6 L MCV 88.2 MCH 27.6 MCHC 31.3 RDW 15.4 Plt Count 258 MPV 9.9 Absolute Nucleated RBC 0.000 Nucleated RBC % (auto) 0.0 ESR APTT 48.3 H Sodium Potassium Chloride Carbon Dioxide Anion Gap BUN Creatinine Estim Creat Clear Calc Estimated GFR POC Glucose Random Glucose Estimat Average Glucose 131 Hemoglobin A1c % 6.2 Calcium C-Reactive Protein Random Vancomycin 08/02/20 11:40 WBC RBC Hgb Hct MCV MCH MCHC RDW Plt Count MPV Absolute Nucleated RBC Nucleated RBC % (auto) ESR APTT Sodium Potassium Chloride Carbon Dioxide Anion Gap BUN Creatinine Estim Creat Clear Calc Estimated GFR POC Glucose 227 H Random Glucose Estimat Average Glucose Hemoglobin A1c % Calcium C-Reactive Protein Random Vancomycin Microbiology Microbiology Results: Microbiology 07/27/20 17:11 Blood Culture - Final Blood - Venous No growth after 5 days. 07/27/20 17:10 Blood Culture - Final Blood - Venous No growth after 5 days. Quality Stroke Does the patient have a stroke diagnosis?: No VTE Prior VTE?: No VTE Risk Level:: Medical - moderate - high VTE Device Contraindication: N/A - Device Ordered VTE Drug Contraindication: Treatment Not Indicated Assessment and Plan (1) Osteomyelitis of great toe of right foot: Status: Acute (2) PAD (peripheral artery disease): Status: Acute Assessment and Plan: hospital d#7 75yo F with DM2, HTN, PAD, abnormal stress test back in April sent in from [facility] with nonhealing gangrenous R great toe # acute osteomyelitis R great toe with gangrene # PAD (R iliac artery occlusion) # suspect underlying CAD - previously treated at last admission in April with long-term IV ertapenem - IV vanco + pip/anny d#6; vanco trough therapeutic; change to PO ABX after amputation - per Vascular Surgery needs fem-fem bypass L->R, without which an amputation site would not heal properly. But she had an abnormal stress test (04/20/20 inferior perfusion defect as well as transient ischemic dilatation) indicating likely multivessel disease. Per Cardiology, she cardiac catheterization would not change her surgical risk and will add to procedural complications including worsening of renal function. Without revascularization, the only viable option is a BKA. 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 avoid nephrotoxins. will give pre- and post- angiogram IV normal saline # normocytic anemia - likely anemia of CKD + due to underlying osteomyelitis but check FOBT. T+S active and now agreeable to transfusion if needed. epo given as per Nephrology 07/30 # severe constipation - continue bowel regimen # B12 deficiency - on IM repletion monthly # HTN - refusing medication (amlodipine + metoprolol). per psychiatry evaluation last admission pt competent to make own decision. continue to revisit. # L eye blepharitis - improving with erythromycin ointment, artificial tears # DM2 - correction-dose lispro; well-controlled, A1c only 6.2 # VTE ppx - UFH
[2020-08-02 17:00] LABS: Glucose, Whole Blood 196 mg/dL (60-115)
[2020-08-02 20:47] LABS: Glucose, Whole Blood 218 mg/dL (60-115)
[2020-08-02] MEDS: Acetaminophen 325 MG TABLET 650 MG PO (21:06)
[2020-08-03] VITALS (22 sets, daily range): BP systolic 136–193; BP diastolic 46–85; PULSE 64–105; RESP 12–20; TEMP 36.1–37.2; O2SAT 95–100
[2020-08-03] MEDS: Piperacillin Sodium/Tazobactam 3.375 GM in 0.9 % Sodium Chloride 50 ML IV ×4 (01:11→23:54)
[2020-08-03] MEDS: 0.9 % Sodium Chloride 500 ML 125 ML IV ×2 (01:43→06:12)
--- NOTE | 2020-08-03 02:03 | PC.NURSE ---
Patient refused 2100 bedtime medications; lipitor 80 mg, bumex 0.5 mg, lopressor 50 mg, and insulin coverage. Dr. Herrera made aware. Half hour later, reattempted to administer medications, patient continues to refuse.
[2020-08-03 07:49] LABS: Glucose, Whole Blood 122 mg/dL (60-115)
[2020-08-03] MEDS: 0.9 % Sodium Chloride Flush 3 ML SYRINGE IVFLUSH ×3 (08:44→23:46)
[2020-08-03] MEDS: Atropine Sulfate 1 % Ophth Sol 2 ML BOTTLE 1 DROP EYE-LEFT ×2 (09:05→19:25)
[2020-08-03] MEDS: Erythromycin Base 0.5% Oph Oin 1 GM TUBE 1 CM EYE-LEFT ×3 (09:05→20:58)
[2020-08-03] MEDS: Artificial Tears 15 ML DROPS 2 DROP EYE-LEFT ×2 (09:05→19:28)
--- NOTE | 2020-08-03 11:09 | HO.PM.IMPN ---
Subjective Subjective Date of Service: 08/03/20 Interval History: No toe pain Nervous about surgery Denies chest pain Denies dyspnea Physical Exam Vital Signs: Vital Signs: Last Vital Signs Temp 97.0 F 08/03/20 08:00 Pulse 80 08/03/20 08:00 Resp 18 08/03/20 08:00 BP 173/77 H 08/03/20 08:00 Pulse Ox 99 08/03/20 08:00 Body Mass Index 23.1 Gen: in NAD, legally blind HEENT: resolving edema of L upper and lower eyelids, sclera anicteric, moist mucus membranes Neck: supple Lungs: clear to auscultation bilaterally Heart: regular rate and rhythm, no murmurs Abd: soft, non-tender, non-distended Ext: R great toe with dry gangrene, no proximal erythema or purulence Skin: warm/well-perfused Neuro: alert and oriented x3, no focal findings Psych: appropriate affect Objective Data Current Medications Generic Name Dose Route Start Last Admin Trade Name Freq PRN Reason Stop Dose Admin Acetaminophen 650 mg 07/27/20 22:23 08/02/20 21:06 Acetaminophen 325 Mg Tablet PO 650 mg Q6H PRN Administration Pain, Mild (Pain Scale 1-3) Amlodipine Besylate 10 mg 07/28/20 09:00 08/03/20 08:45 Amlodipine Besylate 5 Mg Tablet PO Not Given DAILY [facility] Protocol Artificial Tears 2 drop 07/29/20 13:00 08/03/20 09:05 Artificial Tears 15 Ml Drops EYE-LEFT 2 drop QID RAUL Administration Ascorbic Acid 250 mg 07/28/20 09:00 08/03/20 08:45 Ascorbic Acid 250 Mg Tablet PO Not Given BID RAUL Aspirin 81 mg 07/28/20 09:00 08/03/20 08:45 Aspirin Enteric Coated 81 Mg Tablet.Dr PO Not Given DAILY RAUL Atorvastatin Calcium 80 mg 07/27/20 22:23 08/02/20 21:02 Atorvastatin Calcium 80 Mg Tablet PO Not Given BEDTIME RAUL Atropine Sulfate 1 drop 07/27/20 22:23 08/03/20 09:05 Atropine Sulfate 1 % Ophth Jacki 2 Ml Bottle EYE-LEFT 1 drop TID RAUL Administration Bumetanide 0.5 mg 07/27/20 22:23 08/03/20 08:45 Bumetanide 1 Mg Tablet PO Not Given BID [facility] Protocol Calcitriol 0.25 mcg 07/28/20 09:00 08/03/20 08:45 Calcitriol 0.25 Mcg Capsule PO Not Given DAILY [facility] Cyanocobalamin 1,000 mcg 08/15/20 09:00 Cyanocobalamin (Vitamin B-12) 1,000 Mcg/Ml Vial IM Q28D [facility] Docusate Sodium 100 mg 07/27/20 22:23 Docusate Sodium 100 Mg Capsule PO DAILY PRN Constipation Erythromycin 1 cm 07/29/20 13:00 08/03/20 09:05 Erythromycin Base 0.5% Oph Oin 1 Gm Tube EYE-LEFT 1 cm QID [facility] Administration Fluticasone Propionate 1 spray 07/28/20 09:00 08/03/20 08:46 Fluticasone Propionate Nasal 16 Gm Justice NOSTRIL-B Not Given DAILY [facility] Heparin Sodium (Porcine) 5,000 unit 07/29/20 17:00 08/03/20 06:03 Heparin Sodium,Porcine 5,000 Unit/Ml Vial SUBCUT Not Given Q12H [facility] Piperacillin Sod/Tazobactam 50 mls @ 100 mls/hr 07/28/20 01:00 08/03/20 09:38 Sod 3.375 gm/ Sodium Chloride IV Infused Q8H [facility] Infusion Vancomycin HCl 750 mg/ Sodium 265 mls @ 265 mls/hr 08/01/20 17:00 08/01/20 20:10 Chloride IV Infused Q48H [facility] Infusion Insulin Human Lispro 0 unit 07/28/20 07:30 08/03/20 08:44 Insulin Lispro 100 Unit/Ml 3 Ml Vial SUBCUT Not Given QIDACHS [facility] Protocol Loratadine 10 mg 07/28/20 09:00 08/03/20 08:46 Loratadine 10 Mg Tablet PO Not Given DAILY [facility] Metoprolol Tartrate 50 mg 07/27/20 22:23 08/03/20 08:46 Metoprolol Tartrate 50 Mg Tablet PO Not Given BID [facility] Protocol Non-Formulary Medication 1 drop 07/28/20 09:00 Timolol Maleate EYE-RIGHT DAILY [facility] Omeprazole 20 mg 07/28/20 06:30 08/03/20 06:09 Omeprazole 20 Mg Capsule.Dr PO Not Given DAILY@0630 [facility] Ondansetron HCl 4 mg 07/27/20 22:23 07/27/20 22:41 Ondansetron Hcl 4 Mg/2 Ml Vial IVPUSH 4 mg Q8H PRN Administration Nausea and Vomiting Pharmacy Consult 1 each 07/27/20 16:25 Consult Rx Perform Med Rec MISCELLANE ONCE PRN Consult order Pharmacy Consult 1 each 07/27/20 16:38 Consult Rx Vancomycin Dosing MISCELLANE DAILY PRN Consult order Polyethylene Glycol 17 gm 07/28/20 09:00 08/03/20 09:05 Polyethylene Glycol 3350 17 Gm Powd.Pack PO Not Given DAILY RAUL Sevelamer Carbonate 800 mg 07/28/20 17:00 08/03/20 08:45 Sevelamer Carbonate Tablet 800 Mg Tablet PO Not Given TIDWM RAUL Sodium Chloride 3 ml 07/28/20 00:00 08/03/20 08:44 0.9 % Sodium Chloride Flush 3 Ml Syringe IVFLUSH 3 ml QSHIFT RAUL Administration Vitamin D 50 mcg 07/28/20 09:00 08/03/20 08:46 Cholecalciferol (Vitamin D3) 25 Mcg Tablet PO Not Given DAILY [facility] Labs CBC & Chem 7: 08/02/20 08:41 08/02/20 08:41 Labs: Laboratory Results - last 24 hr 08/02/20 08/02/20 08/02/20 08:41 11:40 16:49 ESR 92 H POC Glucose 227 H 196 H 08/02/20 08/03/20 20:43 07:37 ESR POC Glucose 218 H 122 H Quality Stroke Does the patient have a stroke diagnosis?: No VTE Prior VTE?: No VTE Risk Level:: Medical - moderate - high VTE Device Contraindication: N/A - Device Ordered VTE Drug Contraindication: Treatment Not Indicated Assessment and Plan (1) Osteomyelitis of great toe of right foot: Status: Acute (2) PAD (peripheral artery disease): Status: Acute Assessment and Plan: hospital d#8 75yo F with DM2, HTN, PAD, abnormal stress test back in April [facility] with nonhealing gangrenous R great toe # acute osteomyelitis R great toe with gangrene # PAD (R iliac artery occlusion) # suspect underlying CAD - previously treated at last admission in April with long-term IV ertapenem - IV vanco + pip/anny d#7; vanco trough therapeutic; change to PO ABX after amputation - per Vascular Surgery needs fem-fem bypass L->R, without which an amputation site would not heal properly. But she had an abnormal stress test (04/20/20 inferior perfusion defect as well as transient ischemic dilatation) indicating likely multivessel disease. Per Cardiology, she cardiac catheterization would not change her surgical risk and will add to procedural complications including worsening of renal function. Without revascularization, the only viable option is a BKA. 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 avoid nephrotoxins. pre- and post-angiogram IV normal saline # normocytic anemia - likely anemia of CKD + due to underlying osteomyelitis but check FOBT. T+S active and now agreeable to transfusion, 1u requested by surgery/anesthesia today; epo given as per Nephrology 07/30 # severe constipation - continue bowel regimen # B12 deficiency - on IM repletion monthly # HTN - refusing medication (amlodipine + metoprolol). per psychiatry evaluation last admission pt competent to make own decision. continue to revisit. # L eye blepharitis - improving with erythromycin ointment, artificial tears # DM2 - correction-dose lispro; well-controlled, A1c only 6.2 # VTE ppx - UFH # dispo - pt came from [facility] but would like to change to [facility]; CM working on this
[2020-08-03 11:12] LABS: Glucose, Whole Blood 124 mg/dL (60-115)
[2020-08-03] MEDS: Lactated Ringers 1,000 ML 50 ML IVCONT (12:30)
--- NOTE | 2020-08-03 14:00 | P.CONAN_ITS ---
[facility] Active Problems Active Problems: All Active Problems (Updated 07/29/20 @ 11:47 by Roman rutledge MD) Abnormal myocardial perfusion study (Acute) PAD (peripheral artery disease) (Acute) Normocytic anemia (Acute) Constipation (Acute) Osteomyelitis of great toe of right foot (Acute) Diarrhea (Acute) UTI due to Klebsiella species (Acute) Preoperative cardiovascular examination (Acute) Osteomyelitis of great toe of right foot (Acute) Acute kidney injury (Acute) Past Medical History Medical History Anemia Blind CKD (chronic kidney disease) Coronary artery disease Diabetes Diabetic foot infection Essential hypertension PAD (peripheral artery disease) UTI due to Klebsiella species Social History Social History Household Members: None Housing: Intermediate Do you presently have visiting nurse or other home services: No Alcohol intake: unknown Patient Tobacco Use Status: Never used Tobacco Smoked in Last 30 Days: No Second Hand Smoke Exposure: No Use of substances other than those prescribed or required for medical reasons: No Currently Displaying Signs/Symptoms of Drug Intoxication Withdrawal: No Have you been hit, kicked, punched, or otherwise hurt by someone within the past year? If so, by whom?: No Do you feel safe in your current relationship?: No Current Relationship Is there a partner from a previous relationship who is making you feel unsafe now?: No Are you made to feel afraid or neglected: No Are you DNR?: No Advance Directives: No Advance Directives Information Provided: Yes Advance Directives on File: No Do you have thoughts of harming others: None Do you have a plan to hurt others: No Plan Recently lost weight without trying: Yes How much weight loss: 24-33 pounds Nutrition Risks: No Nutritional Risk service: No Current occupational status: disabled Meds Allergies Allergy/AdvReac Type Severity Reaction Status Date / Time No Known Allergies Allergy Verified 06/15/20 16:02 [No Known Allergies*] Active Medications: Current Medications Generic Name Dose Route Start Last Admin Trade Name Freq PRN Reason Stop Dose Admin Acetaminophen 650 mg 07/27/20 22:23 08/02/20 21:06 Acetaminophen 325 Mg Tablet PO 650 mg Q6H PRN Administration Pain, Mild (Pain Scale 1-3) Acetaminophen 650 mg 08/03/20 12:48 Acetaminophen 325 Mg Tablet PO ONCE PRN Pain, Mild (Pain Scale 1-3) Amlodipine Besylate 10 mg 07/28/20 09:00 08/03/20 08:45 Amlodipine Besylate 5 Mg Tablet PO Not Given DAILY [facility] Protocol Artificial Tears 2 drop 07/29/20 13:00 08/03/20 12:57 Artificial Tears 15 Ml Drops EYE-LEFT Not Given QID [facility] Ascorbic Acid 250 mg 07/28/20 09:00 08/03/20 08:45 Ascorbic Acid 250 Mg Tablet PO Not Given BID [facility] Aspirin 81 mg 07/28/20 09:00 08/03/20 08:45 Aspirin Enteric Coated 81 Mg Tablet.Dr PO Not Given DAILY [facility] Atorvastatin Calcium 80 mg 07/27/20 22:23 08/02/20 21:02 Atorvastatin Calcium 80 Mg Tablet PO Not Given BEDTIME [facility] Atropine Sulfate 1 drop 07/27/20 22:23 08/03/20 09:05 Atropine Sulfate 1 % Ophth Jacki 2 Ml Bottle EYE-LEFT 1 drop TID [facility] Administration Bumetanide 0.5 mg 07/27/20 22:23 08/03/20 08:45 Bumetanide 1 Mg Tablet PO Not Given BID [facility] Protocol Calcitriol 0.25 mcg 07/28/20 09:00 08/03/20 08:45 Calcitriol 0.25 Mcg Capsule PO Not Given DAILY [facility] Cyanocobalamin 1,000 mcg 08/15/20 09:00 Cyanocobalamin (Vitamin B-12) 1,000 Mcg/Ml Vial IM Q28D [facility] Docusate Sodium 100 mg 07/27/20 22:23 Docusate Sodium 100 Mg Capsule PO DAILY PRN Constipation Erythromycin 1 cm 07/29/20 13:00 08/03/20 12:57 Erythromycin Base 0.5% Oph Oin 1 Gm Tube EYE-LEFT Not Given QID [facility] Fluticasone Propionate 1 spray 07/28/20 09:00 08/03/20 08:46 Fluticasone Propionate Nasal 16 Gm [place] NOSTRIL-B Not Given DAILY [facility] Heparin Sodium (Porcine) 5,000 unit 07/29/20 17:00 08/03/20 06:03 Heparin Sodium,Porcine 5,000 Unit/Ml Vial SUBCUT Not Given Q12H [facility] Hydromorphone HCl 0.25 mg 08/03/20 12:48 Hydromorphone Hcl 0.5 Mg/0.5 Ml Syringe IVPUSH Q5M PRN Pain, Severe (Pain Scale 7-10) Piperacillin Sod/Tazobactam 50 mls @ 100 mls/hr 07/28/20 01:00 08/03/20 09:38 Sod 3.375 gm/ Sodium Chloride IV Infused Q8H [facility] Infusion Vancomycin HCl 750 mg/ Sodium 265 mls @ 265 mls/hr 08/01/20 17:00 08/01/20 20:10 Chloride IV Infused Q48H [facility] Infusion Sodium Chloride 1,000 mls @ 100 mls/hr 08/03/20 16:00 Ns IVCONT 08/04/20 01:59 .Q10H [facility] Lactated Ringer's 1,000 mls @ 50 mls/hr 08/03/20 13:00 08/03/20 12:30 Lr IVCONT 50 mls/hr .Q20H [facility] Administration Promethazine HCl 12.5 mg/ 50.5 mls @ 202 mls/hr 08/03/20 12:48 Sodium Chloride IV ONCE PRN Nausea and Vomiting Insulin Human Lispro 0 unit 07/28/20 07:30 08/03/20 12:49 Insulin Lispro 100 Unit/Ml 3 Ml Vial SUBCUT Not Given QIDACHS [facility] Protocol Loratadine 10 mg 07/28/20 09:00 08/03/20 08:46 Loratadine 10 Mg Tablet PO Not Given DAILY [facility] Metoprolol Tartrate 50 mg 07/27/20 22:23 08/03/20 08:46 Metoprolol Tartrate 50 Mg Tablet PO Not Given BID [facility] Protocol Non-Formulary Medication 1 drop 07/28/20 09:00 Timolol Maleate EYE-RIGHT DAILY [facility] Omeprazole 20 mg 07/28/20 06:30 08/03/20 06:09 Omeprazole 20 Mg Capsule.Dr PO Not Given DAILY@0630 [facility] Ondansetron HCl 4 mg 07/27/20 22:23 07/27/20 22:41 Ondansetron Hcl 4 Mg/2 Ml Vial IVPUSH 4 mg Q8H PRN Administration Nausea and Vomiting Oxycodone HCl 5 mg 08/03/20 12:48 Oxycodone Hcl Immed Release 5 Mg Tablet PO ONCE PRN Pain, Severe (Pain Scale 7-10) Pharmacy Consult 1 each 07/27/20 16:25 Consult Rx Perform Med Rec MISCELLANE ONCE PRN Consult order Pharmacy Consult 1 each 07/27/20 16:38 Consult Rx Vancomycin Dosing MISCELLANE DAILY PRN Consult order Polyethylene Glycol 17 gm 07/28/20 09:00 08/03/20 09:05 Polyethylene Glycol 3350 17 Gm Powd.Pack PO Not Given DAILY [facility] Sevelamer Carbonate 800 mg 07/28/20 17:00 08/03/20 12:57 Sevelamer Carbonate Tablet 800 Mg Tablet PO Not Given TIDWM [facility] Sodium Chloride 3 ml 07/28/20 00:00 08/03/20 08:44 0.9 % Sodium Chloride Flush 3 Ml Syringe IVFLUSH 3 ml QSHIFT [facility] Administration Vitamin D 50 mcg 07/28/20 09:00 08/03/20 08:46 Cholecalciferol (Vitamin D3) 25 Mcg Tablet PO Not Given DAILY [facility] Home Medications Medication Instructions Recorded Confirmed Last Taken Type atropine 1 drp OPHTHALMIC-LEFT TID 04/15/20 07/27/20 Unknown History prednisolone acetate 1 drp OPHTHALMIC-LEFT DAILY 04/15/20 07/27/20 Unknown H istory timolol maleate 1 drp OPHTHALMIC-RIGHT DAILY 04/15/20 07/27/20 Unknown History acetaminophen 1,000 mg PO TID PRN 07/27/20 07/27/20 Unknown History aspirin 81 mg PO DAILY 07/27/20 07/27/20 Unknown History bumetanide 0.5 mg PO BID 07/27/20 07/27/20 Unknown History calcitriol 0.25 mcg PO DAILY 07/27/20 07/27/20 Unknown History cholecalciferol (vitamin D3) 50 mcg PO DAILY 07/27/20 07/27/20 Unknown History cyanocobalamin (vitamin B-12) 1,000 mcg IM QMONTH 07/27/20 07/27/20 07/18/20 History fexofenadine 60 mg PO DAILY 07/27/20 07/27/20 Unknown History fluticasone propionate [Flonase] 1 spray INTRANASAL DAILY 07/27/20 07/27/20 Unknown History glyburide 5 mg PO DAILY 07/27/20 07/27/20 Unknown History sevelamer HCl 800 mg PO TID 07/27/20 07/27/20 Unknown History vitamin E 400 unit PO DAILY 07/27/20 07/27/20 Unknown History Exam Exam Date and Time: August 03, 2020 1400 Height,Weight and Vital Signs: Height 5 ft 6 in Weight 143 lb Last Vital Signs Temp 99.0 F 08/03/20 12:42 Pulse 82 08/03/20 12:42 Resp 18 08/03/20 12:42 BP 175/64 H 08/03/20 12:42 Pulse Ox 98 08/03/20 12:40 Pertinent Lab Results Pertinent Lab Results: Laboratory Tests 07/27/20 07/27/20 07/27/20 17:10 17:10 17:10 WBC 9.0 RBC 3.18 L Hgb 8.8 L Hct 27.1 L MCV 85.2 MCH 27.7 MCHC 32.5 RDW 15.7 Plt Count 288 D MPV 9.5 Immature Gran % (Auto) 0.2 Neut % (Auto) 72.6 Lymph % (Auto) 17.6 L [place] % (Auto) 7.6 Eos % (Auto) 1.3 Baso % (Auto) 0.7 Lymph # (Auto) 1.6 [place] # (Auto) 0.7 Eos # (Auto) 0.1 Baso # (Auto) 0.1 Abs Immat Gran (auto) 0.02 Absolute Neuts (auto) 6.5 Absolute Nucleated RBC 0.000 Nucleated RBC % (auto) 0.0 ESR APTT Sodium 137 Potassium 5.0 Chloride 109 H Carbon Dioxide 18 L Anion Gap 15 BUN 65 H Creatinine 3.10 H Estim Creat Clear Calc 14.5 Estimated GFR 15 POC Glucose Random Glucose 159 H Estimat Average Glucose Hemoglobin A1c % Lactic Acid 0.7 Calcium 9.5 D Iron TIBC % Saturation Unsat Iron Binding Ferritin Total Bilirubin 0.4 Direct Bilirubin < 0.2 AST 12 ALT < 6 Alkaline Phosphatase 85 C-Reactive Protein Total Protein 7.7 Albumin 3.7 Vitamin B12 Random Vancomycin COVID-19 ([facility]) COVID-19 Clin Com Blood Type Antibody Screen Crossmatch 07/27/20 07/28/20 07/28/20 17:10 06:05 06:05 WBC 9.8 RBC 2.83 L Hgb 7.9 L Hct 24.7 L MCV 87.3 MCH 27.9 MCHC 32.0 RDW 15.7 Plt Count 290 MPV 9.7 Immature Gran % (Auto) 0.3 Neut % (Auto) 56.7 Lymph % (Auto) 29.5 [place] % (Auto) 11.1 H Eos % (Auto) 1.7 Baso % (Auto) 0.7 Lymph # (Auto) 2.9 [place] # (Auto) 1.1 Eos # (Auto) 0.2 Baso # (Auto) 0.1 Abs Immat Gran (auto) 0.03 Absolute Neuts (auto) 5.6 Absolute Nucleated RBC 0.000 Nucleated RBC % (auto) 0.0 ESR APTT Sodium 140 Potassium 5.2 H Chloride 111 H Carbon Dioxide 18 L Anion Gap 16 BUN 64 H Creatinine 3.22 H Estim Creat Clear Calc 13.9 Estimated GFR 14 POC Glucose Random Glucose 105 Estimat Average Glucose Hemoglobin A1c % Lactic Acid Calcium 9.2 Iron TIBC % Saturation Unsat Iron Binding Ferritin Total Bilirubin Direct Bilirubin AST ALT Alkaline Phosphatase C-Reactive Protein 0.20 Total Protein Albumin Vitamin B12 Random Vancomycin COVID-19 ([facility]) Negative COVID-19 Clin Com See Note Blood Type Antibody Screen Crossmatch 07/28/20 07/28/20 07/28/20 06:06 07:07 11:18 WBC RBC Hgb Hct MCV MCH MCHC RDW Plt Count MPV Immature Gran % (Auto) Neut % (Auto) Lymph % (Auto) [place] % (Auto) Eos % (Auto) Baso % (Auto) Lymph # (Auto) [place] # (Auto) Eos # (Auto) Baso # (Auto) Abs Immat Gran (auto) Absolute Neuts (auto) Absolute Nucleated RBC Nucleated RBC % (auto) ESR 95 H APTT Sodium Potassium Chloride Carbon Dioxide Anion Gap BUN Creatinine Estim Creat Clear Calc Estimated GFR POC Glucose 94 85 Random Glucose Estimat Average Glucose Hemoglobin A1c % Lactic Acid Calcium Iron TIBC % Saturation Unsat Iron Binding Ferritin Total Bilirubin Direct Bilirubin AST ALT Alkaline Phosphatase C-Reactive Protein Total Protein Albumin Vitamin B12 Random Vancomycin COVID-19 ([facility]) COVID-19 Clin Com Blood Type Antibody Screen Crossmatch 07/28/20 07/28/20 07/29/20 16:07 20:05 07:35 WBC RBC Hgb Hct MCV MCH MCHC RDW Plt Count MPV Immature Gran % (Auto) Neut % (Auto) Lymph % (Auto) [place] % (Auto) Eos % (Auto) Baso % (Auto) Lymph # (Auto) [place] # (Auto) Eos # (Auto) Baso # (Auto) Abs Immat Gran (auto) Absolute Neuts (auto) Absolute Nucleated RBC Nucleated RBC % (auto) ESR APTT Sodium Potassium Chloride Carbon Dioxide Anion Gap BUN Creatinine Estim Creat Clear Calc Estimated GFR POC Glucose 140 H 188 H 86 Random Glucose Estimat Average Glucose Hemoglobin A1c % Lactic Acid Calcium Iron TIBC % Saturation Unsat Iron Binding Ferritin Total Bilirubin Direct Bilirubin AST ALT Alkaline Phosphatase C-Reactive Protein Total Protein Albumin Vitamin B12 Random Vancomycin COVID-19 ([facility]) COVID-19 q[facility]b Blood Type Antibody Screen Crossmatch 07/29/20 07/29/20 07/29/20 10:28 10:28 11:20 WBC RBC Hgb Hct MCV MCH MCHC RDW Plt Count MPV Immature Gran % (Auto) Neut % (Auto) Lymph % (Auto) [place] % (Auto) Eos % (Auto) Baso % (Auto) Lymph # (Auto) [place] # (Auto) Eos # (Auto) Baso # (Auto) Abs Immat Gran (auto) Absolute Neuts (auto) Absolute Nucleated RBC Nucleated RBC % (auto) ESR APTT Sodium 137 Potassium 4.6 Chloride 108 Carbon Dioxide 20 L Anion Gap 14 BUN 69 H Creatinine 3.49 H Estim Creat Clear Calc 12.8 Estimated GFR 13 POC Glucose 153 H Random Glucose 149 H D Estimat Average Glucose Hemoglobin A1c % Lactic Acid Calcium 8.9 Iron TIBC % Saturation Unsat Iron Binding Ferritin Total Bilirubin Direct Bilirubin AST ALT Alkaline Phosphatase C-Reactive Protein Total Protein Albumin Vitamin B12 > 2000 H Random Vancomycin COVID-19 ([facility]) COVID-19 qunb Blood Type Antibody Screen Crossmatch 07/29/20 07/29/20 07/30/20 16:33 20:36 06:25 WBC 8.7 RBC 2.69 L Hgb 7.3 L Hct 23.4 L MCV 87.0 MCH 27.1 MCHC 31.2 RDW 15.4 Plt Count 241 MPV 9.6 Immature Gran % (Auto) Neut % (Auto) Lymph % (Auto) [place] % (Auto) Eos % (Auto) Baso % (Auto) Lymph # (Auto) [place] # (Auto) Eos # (Auto) Baso # (Auto) Abs Immat Gran (auto) Absolute Neuts (auto) Absolute Nucleated RBC 0.000 Nucleated RBC % (auto) 0.0 ESR APTT Sodium Potassium Chloride Carbon Dioxide Anion Gap BUN Creatinine Estim Creat Clear Calc Estimated GFR POC Glucose 148 H 169 H Random Glucose Estimat Average Glucose Hemoglobin A1c % Lactic Acid Calcium Iron TIBC % Saturation Unsat Iron Binding Ferritin Total Bilirubin Direct Bilirubin AST ALT Alkaline Phosphatase C-Reactive Protein Total Protein Albumin Vitamin B12 Random Vancomycin COVID-19 ([facility]) COVID-19 [facility] Com Blood Type Antibody Screen Crossmatch 07/30/20 07/30/20 07/30/20 06:25 06:25 07:23 WBC RBC Hgb Hct MCV MCH MCHC RDW Plt Count MPV Immature Gran % (Auto) Neut % (Auto) Lymph % (Auto) [place] % (Auto) Eos % (Auto) Baso % (Auto) Lymph # (Auto) [place] # (Auto) Eos # (Auto) Baso # (Auto) Abs Immat Gran (auto) Absolute Neuts (auto) Absolute Nucleated RBC Nucleated RBC % (auto) ESR APTT Sodium 139 Potassium 4.7 Chloride 110 H Carbon Dioxide 21 L Anion Gap 13 BUN 72 H Creatinine 3.31 H Estim Creat Clear Calc 13.5 Estimated GFR 14 POC Glucose 96 Random Glucose 102 Estimat Average Glucose Hemoglobin A1c % Lactic Acid Calcium 8.8 Iron 34 TIBC 173 L % Saturation 20 Unsat Iron Binding 139 Ferritin Total Bilirubin Direct Bilirubin AST ALT Alkaline Phosphatase C-Reactive Protein Total Protein Albumin Vitamin B12 Random Vancomycin COVID-19 ([facility]) COVID-19 [facility] Com Blood Type Antibody Screen Crossmatch 07/30/20 07/30/20 07/30/20 10:49 16:27 20:25 WBC RBC Hgb Hct MCV MCH MCHC RDW Plt Count MPV Immature Gran % (Auto) Neut % (Auto) Lymph % (Auto) [place] % (Auto) Eos % (Auto) Baso % (Auto) Lymph # (Auto) [place] # (Auto) Eos # (Auto) Baso # (Auto) Abs Immat Gran (auto) Absolute Neuts (auto) Absolute Nucleated RBC Nucleated RBC % (auto) ESR APTT Sodium Potassium Chloride Carbon Dioxide Anion Gap BUN Creatinine Estim Creat Clear Calc Estimated GFR POC Glucose 134 H 156 H 158 H Random Glucose Estimat Average Glucose Hemoglobin A1c % Lactic Acid Calcium Iron TIBC % Saturation Unsat Iron Binding Ferritin Total Bilirubin Direct Bilirubin AST ALT Alkaline Phosphatase C-Reactive Protein Total Protein Albumin Vitamin B12 Random Vancomycin COVID-19 ([facility]) COVID-19 [facility] Com Blood Type Antibody Screen Crossmatch 07/31/20 07/31/20 07/31/20 06:05 06:05 06:05 WBC 7.3 RBC 2.66 L Hgb 7.3 L Hct 23.3 L MCV 87.6 MCH 27.4 MCHC 31.3 RDW 15.5 Plt Count 240 MPV 9.9 Immature Gran % (Auto) Neut % (Auto) Lymph % (Auto) [place] % (Auto) Eos % (Auto) Baso % (Auto) Lymph # (Auto) [place] # (Auto) Eos # (Auto) Baso # (Auto) Abs Immat Gran (auto) Absolute Neuts (auto) Absolute Nucleated RBC 0.000 Nucleated RBC % (auto) 0.0 ESR APTT Sodium 137 Potassium 4.4 Chloride 110 H Carbon Dioxide 19 L Anion Gap 12 BUN 68 H Creatinine 3.24 H Estim Creat Clear Calc 13.8 Estimated GFR 14 POC Glucose Random Glucose 120 H Estimat Average Glucose Hemoglobin A1c % Lactic Acid Calcium 8.9 Iron TIBC % Saturation Unsat Iron Binding Ferritin Total Bilirubin Direct Bilirubin AST ALT Alkaline Phosphatase C-Reactive Protein Total Protein Albumin Vitamin B12 Random Vancomycin COVID-19 ([facility]) COVID-19 [facility] Blood Type O Positive Antibody Screen NEGATIVE Crossmatch 07/31/20 07/31/20 07/31/20 06:05 07:35 11:29 WBC RBC Hgb Hct MCV MCH MCHC RDW Plt Count MPV Immature Gran % (Auto) Neut % (Auto) Lymph % (Auto) [place] % (Auto) Eos % (Auto) Baso % (Auto) Lymph # (Auto) [place] # (Auto) Eos # (Auto) Baso # (Auto) Abs Immat Gran (auto) Absolute Neuts (auto) Absolute Nucleated RBC Nucleated RBC % (auto) ESR APTT Sodium Potassium Chloride Carbon Dioxide Anion Gap BUN Creatinine Estim Creat Clear Calc Estimated GFR POC Glucose 108 173 H Random Glucose Estimat Average Glucose Hemoglobin A1c % Lactic Acid Calcium Iron TIBC % Saturation Unsat Iron Binding Ferritin 320 H Total Bilirubin Direct Bilirubin AST ALT Alkaline Phosphatase C-Reactive Protein Total Protein Albumin Vitamin B12 Random Vancomycin COVID-19 ([facility]) COVID-19 [facility] Blood Type Antibody Screen Crossmatch 06/07/31/20 07/31/20 16:26 16:37 20:39 WBC RBC Hgb Hct MCV MCH MCHC RDW Plt Count MPV Immature Gran % (Auto) Neut % (Auto) Lymph % (Auto) [place] % (Auto) Eos % (Auto) Baso % (Auto) Lymph # (Auto) [place] # (Auto) Eos # (Auto) Baso # (Auto) Abs Immat Gran (auto) Absolute Neuts (auto) Absolute Nucleated RBC Nucleated RBC % (auto) ESR APTT Sodium Potassium Chloride Carbon Dioxide Anion Gap BUN Creatinine Estim Creat Clear Calc Estimated GFR POC Glucose 154 H 161 H Random Glucose Estimat Average Glucose Hemoglobin A1c % Lactic Acid Calcium Iron TIBC % Saturation Unsat Iron Binding Ferritin Total Bilirubin Direct Bilirubin AST ALT Alkaline Phosphatase C-Reactive Protein Total Protein Albumin Vitamin B12 Random Vancomycin 15.7 COVID-19 ([facility]) [facility] Blood Type Antibody Screen Crossmatch 08/01/20 08/01/20 08/01/20 07:56 11:21 16:24 WBC RBC Hgb Hct MCV MCH MCHC RDW Plt Count MPV Immature Gran % (Auto) Neut % (Auto) Lymph % (Auto) [place] % (Auto) Eos % (Auto) Baso % (Auto) Lymph # (Auto) [place] # (Auto) Eos # (Auto) Baso # (Auto) Abs Immat Gran (auto) Absolute Neuts (auto) Absolute Nucleated RBC Nucleated RBC % (auto) ESR APTT Sodium Potassium Chloride Carbon Dioxide Anion Gap BUN Creatinine Estim Creat Clear Calc Estimated GFR POC Glucose 119 H 164 H Random Glucose Estimat Average Glucose Hemoglobin A1c % Lactic Acid Calcium Iron TIBC % Saturation Unsat Iron Binding Ferritin Total Bilirubin Direct Bilirubin AST ALT Alkaline Phosphatase C-Reactive Protein Total Protein Albumin Vitamin B12 Random Vancomycin 12.9 L COVID-19 ([facility]) COVID-19 [facility] Blood Type Antibody Screen Crossmatch 08/01/20 08/01/20 08/02/20 16:32 20:23 07:56 WBC RBC Hgb Hct MCV MCH MCHC RDW Plt Count MPV Immature Gran % (Auto) Neut % (Auto) Lymph % (Auto) [place] % (Auto) Eos % (Auto) Baso % (Auto) Lymph # (Auto) [place] # (Auto) Eos # (Auto) Baso # (Auto) Abs Immat Gran (auto) Absolute Neuts (auto) Absolute Nucleated RBC Nucleated RBC % (auto) ESR APTT Sodium Potassium Chloride Carbon Dioxide Anion Gap BUN Creatinine Estim Creat Clear Calc Estimated GFR POC Glucose 162 H 163 H 182 H Random Glucose Estimat Average Glucose Hemoglobin A1c % Lactic Acid Calcium Iron TIBC % Saturation Unsat Iron Binding Ferritin Total Bilirubin Direct Bilirubin AST ALT Alkaline Phosphatase C-Reactive Protein Total Protein Albumin Vitamin B12 Random Vancomycin COVID-19 ([facility]) COVID-19 [facility] Blood Type Antibody Screen Crossmatch 08/02/20 08/02/20 08/02/20 08:41 08:41 08:41 WBC RBC Hgb Hct MCV MCH MCHC RDW Plt Count MPV Immature Gran % (Auto) Neut % (Auto) Lymph % (Auto) [place] % (Auto) Eos % (Auto) Baso % (Auto) Lymph # (Auto) [place] # (Auto) Eos # (Auto) Baso # (Auto) Abs Immat Gran (auto) Absolute Neuts (auto) Absolute Nucleated RBC Nucleated RBC % (auto) ESR 92 H APTT 48.3 H Sodium 139 Potassium 4.1 Chloride 111 H Carbon Dioxide 21 L Anion Gap 11 L BUN 49 H Creatinine 3.25 H Estim Creat Clear Calc 13.8 Estimated GFR 14 POC Glucose Random Glucose 186 H D Estimat Average Glucose Hemoglobin A1c % Lactic Acid Calcium 8.9 Iron TIBC % Saturation Unsat Iron Binding Ferritin Total Bilirubin Direct Bilirubin AST ALT Alkaline Phosphatase C-Reactive Protein 0.24 Total Protein Albumin Vitamin B12 Random Vancomycin COVID-19 ([facility]) COVID-19 [facility] Blood Type Antibody Screen Crossmatch 08/02/20 08/02/20 08/02/20 08:41 08:41 11:40 WBC 9.6 RBC 2.79 L Hgb 7.7 L Hct 24.6 L MCV 88.2 MCH 27.6 MCHC 31.3 RDW 15.4 Plt Count 258 MPV 9.9 Immature Gran % (Auto) Neut % (Auto) Lymph % (Auto) [place] % (Auto) Eos % (Auto) Baso % (Auto) Lymph # (Auto) [place] # (Auto) Eos # (Auto) Baso # (Auto) Abs Immat Gran (auto) Absolute Neuts (auto) Absolute Nucleated RBC 0.000 Nucleated RBC % (auto) 0.0 ESR APTT Sodium Potassium Chloride Carbon Dioxide Anion Gap BUN Creatinine Estim Creat Clear Calc Estimated GFR POC Glucose 227 H Random Glucose Estimat Average Glucose 131 Hemoglobin A1c % 6.2 Lactic Acid Calcium Iron TIBC % Saturation Unsat Iron Binding Ferritin Total Bilirubin Direct Bilirubin AST ALT Alkaline Phosphatase C-Reactive Protein Total Protein Albumin Vitamin B12 Random Vancomycin COVID-19 ([facility]) COVID-19 [facility]b Blood Type Antibody Screen Crossmatch 08/02/20 08/02/20 08/03/20 16:49 20:43 07:37 WBC RBC Hgb Hct MCV MCH MCHC RDW Plt Count MPV Immature Gran % (Auto) Neut % (Auto) Lymph % (Auto) [place] % (Auto) Eos % (Auto) Baso % (Auto) Lymph # (Auto) [place] # (Auto) Eos # (Auto) Baso # (Auto) Abs Immat Gran (auto) Absolute Neuts (auto) Absolute Nucleated RBC Nucleated RBC % (auto) ESR APTT Sodium Potassium Chloride Carbon Dioxide Anion Gap BUN Creatinine Estim Creat Clear Calc Estimated GFR POC Glucose 196 H 218 H 122 H Random Glucose Estimat Average Glucose Hemoglobin A1c % Lactic Acid Calcium Iron TIBC % Saturation Unsat Iron Binding Ferritin Total Bilirubin Direct Bilirubin AST ALT Alkaline Phosphatase C-Reactive Protein Total Protein Albumin Vitamin B12 Random Vancomycin COVID-19 ([facility]) COVID-19 [facility] Blood Type Antibody Screen Crossmatch 08/03/20 08/03/20 10:56 10:59 WBC RBC Hgb Hct MCV MCH MCHC RDW Plt Count MPV Immature Gran % (Auto) Neut % (Auto) Lymph % (Auto) [place] % (Auto) Eos % (Auto) Baso % (Auto) Lymph # (Auto) [place] # (Auto) Eos # (Auto) Baso # (Auto) Abs Immat Gran (auto) Absolute Neuts (auto) Absolute Nucleated RBC Nucleated RBC % (auto) ESR APTT Sodium Potassium Chloride Carbon Dioxide Anion Gap BUN Creatinine Estim Creat Clear Calc Estimated GFR POC Glucose 124 H Random Glucose Estimat Average Glucose Hemoglobin A1c % Lactic Acid Calcium Iron TIBC % Saturation Unsat Iron Binding Ferritin Total Bilirubin Direct Bilirubin AST ALT Alkaline Phosphatase C-Reactive Protein Total Protein Albumin Vitamin B12 Random Vancomycin COVID-19 ([facility]) [employer] Blood Type O Positive Antibody Screen NEGATIVE Crossmatch See Detail Assessment and Plan Assessment Anesthesia Assessment: Anesthesia Plan Discussed Final Anesthetic Review NPO: Yes ASA Class: IV Final Preanesthetic Review: No Changes in Pt Med Stat, Meds/Allgs Chart Reviewed, Consent Obtained/Reviewed and Anes Risks/Benef Reviewed Patient Risk: High Procedure Risk: High Anesthetic Plan Anesthetic Plan: GA Disposition: Standard PACU
--- NOTE | 2020-08-03 16:26 | W.PM.OPN ---
Operative Note Operative Note Date of Service: 08/03/20 Narrative: Operative note by [facility] Preoperative diagnosis: atherosclerosis with right foot gangrene Postoperative diagnosis: Same Procedure:1. Left to right femoral to femoral bypass 2. Thrombectomy of right profunda femoris 3. Amputation of right great toe Surgeon:Mateo Blood M.D. Lockstitch Sleeve Maker: Dr. Sharpe Anesthesia: General Specimens: 1 Drains: None Estimated blood loss: 100 cc Indications: 75-year-old female with history significant for peripheral vascular disease presents for bypass, and toe amputation The patient has signed the informed consent after reviewing risks, complications, benefits, and alternatives previously discussed with the patient. The patient was given the opportunity to ask any additional questions or voice any concerns. All questions were answered to the patient's satisfaction. Procedure in detail: Patient was brought to the operating room prior to which a time-out was called for patient identification and site verification. Bilateral groins and right lower extremity was prepped and draped in the standard surgical fashion. Bilateral femoral cutdowns were 1st undertaken. We approached the left groin 1st we made a vertical incision approximately 8 cm long. We dissected down through the subcu fat fascia and identified the common femoral artery at the inguinal ligament. We isolated this with silastic loops. We did a similar approach to the right side and we were able to isolate out the common femoral profundus and SFA. Once this was done a tunnel was created using an aortic clamp in the subcu tissue from the left groin to the right groin. At this time 5000 units of systemic heparin was given. After 5 minutes of circulation time we 1st clamped the left common femoral and created an arteriotomy using an 11 blade. The vessel although atherosclerotic did have reasonable caliber. We then used a [place] Propaten 6 mm graft. This was trimmed to the appropriate size. We then anastomosed this in a circumferential manner using 5 0 [place] suture. Once this was accomplished we flushed through the graft. We then tunneled the graft and in a similar fashion we created an arteriotomy in the right common femoral. There was no significant backflow appreciated. We took this on down to beyond the profunda femoral into the SFA. We then passed a 3. [place] into the profundus to dilate this up. We were then able to obtain good backbleeding. We then in a similar fashion did a circumferential anastomosis of the [place] graft which had been trimmed down to the appropriate size. We used a 5 0 [place] suture. Prior to closure we flushed this entire area clean and then we closed. Once this was accomplished adequate hemostasis was achieved in Tisseel sealant was then used. We then closed both groins using 2 0 poly Sorb 3-0 poly Sorb in multiple levels and finally skin clips. Once both groins were closed sterile dressings were applied we then turned our attention to the right foot which had been isolated previously with a bowel bag. We created a fishmouth incision and we took down the incision down to the metatarsal head. The toe was resected in its entirety. Once this was accomplished there was bleeding noted. We obtained adequate hemostasis. We then close the deep layer with 2 0 Polysorb finally skin with 3 of 0 nylon in a mattress fashion and a sterile dressing was applied. At the end of the case needle sponge and instrument counts were correct. Patient tolerated the procedure well. Was returned to recovery with stable vitals. This note is constructed using voice recognition software. While every effort has been made to ensure accuracy, evp managing director errors may have been included. Thank you for allowing me to participate in the care of your patient. Yours sincerely, Mateo Blood MD, FACS, R.P.V.I.
[2020-08-03] MEDS: hydrALAZINE HCl 20 MG/ML VIAL 10 MG IVPUSH ×2 (17:10→23:50)
[2020-08-03] MEDS: Heparin Sodium,Porcine 5,000 UNIT/ML VIAL 5000 UNIT SUBCUT (18:43)
[2020-08-03 18:56] LABS: Glucose, Whole Blood 202 mg/dL (60-115)
[2020-08-03 19:11] LABS: Glucose, Whole Blood 210 mg/dL (60-115)
[2020-08-03] MEDS: vancomycin HCL 750 MG in 0.9 % Sodium Chloride 250 ML 265 MG IV (19:26)
[2020-08-03] MEDS: Sevelamer Carbonate Tablet 800 MG TABLET PO (19:27)
[2020-08-03] MEDS: 0.9 % Sodium Chloride 1,000 ML 100 ML IVCONT (19:29)
[2020-08-03 19:41] LABS: Creatinine Clr Calc Pharmacy 14.6; Estimated Glomerular Filt Rate 15
[2020-08-03 19:48] LABS: Vancomycin Random 12.3 mcg/mL (15-20)
[2020-08-03 19:49] LABS: Albumin Level 3.3 g/dL (3.5-5.0); Anion Gap 17 (12-20); Blood Urea Nitrogen 41 mg/dL (9-16); Calcium 8.7 mg/dL (8.4-10.2); Carbon Dioxide 16 mmol/L (22-29); Chloride 112 mmol/L (96-108); Glucose Random 220 mg/dL (60-115); Magnesium 1.8 mg/dL (1.6-2.6); Phosphorus 4.1 mg/dL (2.7-4.5); Potassium 4.5 mmol/L (3.3-5.1); Sodium 140 mmol/L (135-145)
[2020-08-03 19:50] LABS: Basophils Percent Auto 0.1 % (0-2); Eosinophils Percent Auto 0.1 % (0-4); Hemoglobin 8.7 g/dl (12.0-16.0); Imm Gran Abs Auto 0.13 X10*3/uL (0.00-0.03); Imm Gran Pct Auto 0.8 % (0.0-0.4); Lymphocytes Absolute Auto 0.9 X10*3/uL (1.2-4.9); Lymphocytes Percent Auto 5.5 % (20-40); MANUAL DIFF FLAG SCAN; Mean Corpuscular HGB Conc 31.1 g/dl (31.0-35.0); Mean Corpuscular Hemoglobin 27.9 pg (27.0-33.0); Mean Corpuscular Volume 89.7 fL (80-98); Mean Platelet Volume 9.4 fL (9.4-12.3); Monocytes Absolute Auto 0.2 X10*3/uL (0.1-1.2); Monocytes Percent Auto 1.4 % (2-11); Neutrophils Absolute Auto 14.4 X10*3/uL (2.0-8.3); Neutrophils Percent Auto 92.1 % (45-73); Platelet Count 256 X10*3/uL (160-400); Red Blood Count 3.12 X10*6/uL (4.20-5.50); Red Cell Distribution Width 16.2 % (11.0-16.0); SCAN SMEAR FLAG 1; White Blood Count 15.6 X10*3/uL (4.8-10.8)
--- NOTE | 2020-08-03 20:00 | P.EN_ITS ---
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 Today she underwent Left to right femoral to femoral bypass 2, Thrombectomy of right profunda femo ris 3, and Amputation of right great toe with Dr. Blood. Admitted into ICU for post-operative hemodynamically management. Plan: Post op lab SBP <180s Critical care time: x 45 minutes
[2020-08-03 20:10] LABS: SLIDE REVIEW VERIFIED
[2020-08-03] MEDS: Ascorbic Acid 250 MG TABLET PO (20:57)
[2020-08-03] MEDS: Metoprolol Tartrate 50 MG TABLET PO (20:57)
[2020-08-03] MEDS: Bumetanide 1 MG TABLET 0.5 MG PO (20:58)
[2020-08-04] VITALS (17 sets, daily range): BP systolic 138–190; BP diastolic 46–82; PULSE 91–112; RESP 12–20; TEMP 36.7–37.6; O2SAT 90–97
--- NOTE | 2020-08-04 01:46 | PC.NURSE ---
CARE ASSUMED 23:15...AWAKE..ALERT...ORIENTED X3...VAGUE RESPONSES AT TIMES..RESPIRATIONS EASY...SAO2 96-98% ROOM AIR...RIGHT FOOT DRESSING DRY/INTACT..FOOT/LOWER LEG WARM...RIGHT POSTERIOR PULSE (+) VIA DOPPLER...RIGHT RADIAL A-LINE WITH GOOD WAVEFORM/GOODCMS TO RIGHT HAND...BP REMAINS ELEVATED...SBP 180'S-190'S...PER REGISTERED REPRESENTATIVE PATIENT HAD REFUSED PRN BP MEDS THIS EVENING...HS BP 194/76...PATIENT ACCEPTED PRN HYDRALAZINE 10 MG IV...BP IMPROVED..CURRENTLY SBP 140-150...RESTFUL...NSR HR 80'S-90'S...DRESSINGS TO RIGHT/LEFT GROIN DRY/INTACT
[2020-08-04 05:50] LABS: Hematocrit 24.8 % (37-47); Hemoglobin 7.9 g/dl (12.0-16.0); Mean Corpuscular HGB Conc 31.9 g/dl (31.0-35.0); Mean Corpuscular Hemoglobin 28.2 pg (27.0-33.0); Mean Corpuscular Volume 88.6 fL (80-98); Mean Platelet Volume 9.7 fL (9.4-12.3); Platelet Count 272 X10*3/uL (160-400); Red Cell Distribution Width 16.4 % (11.0-16.0); White Blood Count 17.9 X10*3/uL (4.8-10.8)
[2020-08-04 06:12] LABS: Albumin Level 2.8 g/dL (3.5-5.0); Anion Gap 15 (12-20); Blood Urea Nitrogen 46 mg/dL (9-16); Carbon Dioxide 16 mmol/L (22-29); Chloride 110 mmol/L (96-108); Creatinine Clr Calc Pharmacy 13.9; Estimated Glomerular Filt Rate 14; Glucose Random 216 mg/dL (60-115); Magnesium 1.6 mg/dL (1.6-2.6); Phosphorus 4.4 mg/dL (2.7-4.5); Potassium 4.4 mmol/L (3.3-5.1); Sodium 137 mmol/L (135-145)
--- NOTE | 2020-08-04 06:35 | PC.NURSE ---
AWAKE..ALERT THIS AM....REFUSED AM HEPARIN AND PRILOSEC....UPSET R/T PRESENCE OF MONITOR LEADS/A-LINE/SEBASTIAN ETC....DEMANDED REMOVAL OF FO,SUHAIL CATHETER.. EITHER YOU TAKE IT OUT OR I'LL TAKE IT OUTZ'...Z'I DON'T WANT IT ANY MORE ...SEBASTIAN D/C'D INTACT...PORTABLE PHONE PROVIDED...PATIENT TALKED WITH HER DAUGHTER THEN SETTLED SELF FOR SLEEP
[2020-08-04 07:42] LABS: Glucose, Whole Blood 183 mg/dL (60-115)
--- NOTE | 2020-08-04 08:39 | MHC.SHP ---
Pre-Procedural Eval Section A Date of Service: 08/04/20 The patient is an INPATIENT: Yes The History & Physical has been completed within 30 days and I have reviewed it.: Yes Section B Chief Complaint: Osteo Allergies: Allergies Allergy/AdvReac Type Severity Reaction Status Date / Time No Known Allergies Allergy Verified 06/15/20 16:02 [No Known Allergies*] Plan I have reviewed the history and physical and performed a pertinent physical examination on my patient. No changes have occurred unless specified.
[2020-08-04] MEDS: Magnesium Sulfate/H2O 2 GM/50 ML PIGGYBACK IV (08:40)
[2020-08-04] MEDS: 0.9 % Sodium Chloride Flush 3 ML SYRINGE IVFLUSH ×3 (08:41→21:08)
--- NOTE | 2020-08-04 09:04 | MHC.CLN ---
F/U PT S/P R GRT TOE AMP PO REMAINS FAIR TO GOOD DIET RX: REGULAR -PT MAY BENEFIT FROM DM DIET R/T DM RECOMMEND 2000DM DIET AND RE-START GLUCERNA SUPPLEMENT BID MONITOR PO INTAKE CLOSELY DIET UPDATED
--- NOTE | 2020-08-04 09:34 | HO.VASCPN ---
Subjective Subjective Date of Service: 08/04/20 Patient reports: no new complaints and feels better Interval history: Patient seen and examined. No events overnight. Doing relatively well. Pain well controlled. In relatively good spirits. She was upset at nursing regarding her eyedrops this morning. Otherwise doing excellent from a procedural standpoint. Physical Exam Vital Signs: Vital Signs: Last Vital Signs Temp 98.9 F 08/04/20 08:00 Pulse 93 08/04/20 09:00 Resp 14 08/04/20 09:00 BP 171/52 H 08/04/20 09:00 Pulse Ox 97 08/04/20 09:00 Body Mass Index 23.1 Const: General: cooperative, healthy appearing and no acute distress Orientation/consciousness: oriented to person, oriented to place and oriented to time HENMT: Head: Yes normal to inspection Neck: Carotids: no bruits Chest: Chest palpation & inspection: normal inspection of the chest Resp: Effort & Inspection: normal respiratory effort and able to speak in complete sentences Auscultation: clear to auscultation bilaterally Cardio: Rate: regular rate Heart sounds: S1 normal heart sound present and S2 normal heart sound present Peripheral pulses: posterior tibial pulses present (Right biphasic signal) GI: Inspection: Yes normal to inspection Skin: General skin exam: no rashes or lesions noted Wounds: amputation site (Right foot dressing clean dry intact) Neuro: General: oriented to person, oriented to place, oriented to time and CN's II-XI intact bilaterally Extrem: General: Yes normal to inspection, Yes full ROM and Yes no clubbing, cyanosis or edema Psych: Appearance: grossly normal and well kempt Speech and movement: Normal speech and movement present Affect: normal affect Progress Note: A&P Assessment and plan (1) PAD (peripheral artery disease): Status: Acute Assessment and Plan: Patient doing extremely well status post femoral to femoral bypass, and right great toe amputation. Pain well controlled. Appears to be doing extremely well this morning tolerating a diet. Navas was removed. Will remove A-line and she is stable for transfer up to [facility]. She will be observed through the weekend. Plan for dressing change on Friday. If stable would anticipate discharge early next week. Thank you for allowing us to assist in her care. If there are any questions or concerns please do not hesitate to contact us. Fall Risk Details Current Medications: Current Medications Generic Name Dose Route Start Last Admin Trade Name Steve PRN Reason Stop Dose Admin Acetaminophen 650 mg 07/27/20 22:23 08/02/20 21:06 Acetaminophen 325 Mg Tablet PO 650 mg Q6H PRN Administration Pain, Mild (Pain Scale 1-3) Amlodipine Besylate 10 mg 07/28/20 09:00 08/04/20 08:47 Amlodipine Besylate 5 Mg Tablet PO Not Given DAILY [facility] Protocol Artificial Tears 2 drop 07/29/20 13:00 08/04/20 08:47 Artificial Tears 15 Ml Drops EYE-LEFT Not Given QID [facility] Ascorbic Acid 250 mg 07/28/20 09:00 08/04/20 08:47 Ascorbic Acid 250 Mg Tablet PO Not Given BID [facility] Aspirin 81 mg 07/28/20 09:00 08/04/20 08:47 Aspirin Enteric Coated 81 Mg Tablet.Dr PO Not Given DAILY [facility] Atorvastatin Calcium 80 mg 07/27/20 22:23 08/03/20 22:01 Atorvastatin Calcium 80 Mg Tablet PO Not Given BEDTIME [facility] Atropine Sulfate 1 drop 07/27/20 22:23 08/04/20 08:48 Atropine Sulfate 1 % Ophth Jacki 2 Ml Bottle EYE-LEFT Not Given TID [facility] Bumetanide 0.5 mg 07/27/20 22:23 08/04/20 08:48 Bumetanide 1 Mg Tablet PO Not Given BID [facility] Protocol Calcitriol 0.25 mcg 07/28/20 09:00 08/04/20 08:48 Calcitriol 0.25 Mcg Capsule PO Not Given DAILY [facility] Cyanocobalamin 1,000 mcg 08/15/20 09:00 Cyanocobalamin (Vitamin B-12) 1,000 Mcg/Ml Vial IM Q28D [facility] Docusate Sodium 100 mg 07/27/20 22:23 Docusate Sodium 100 Mg Capsule PO DAILY PRN Constipation Erythromycin 1 cm 07/29/20 13:00 08/04/20 08:49 Erythromycin Base 0.5% Oph Oin 1 Gm Tube EYE-LEFT Not Given QID [facility] Fluticasone Propionate 1 spray 07/28/20 09:00 08/04/20 08:49 Fluticasone Propionate Nasal 16 Gm [place] NOSTRIL-B Not Given DAILY [facility] Heparin Sodium (Porcine) 5,000 unit 07/29/20 17:00 08/04/20 05:29 Heparin Sodium,Porcine 5,000 Unit/Ml Vial SUBCUT Not Given Q12H [facility] Hydralazine HCl 10 mg 08/03/20 16:52 08/03/20 23:50 Hydralazine Hcl 20 Mg/Ml Vial IVPUSH 10 mg Q6H PRN Administration SBP > 160 Protocol Vancomycin HCl 750 mg/ Sodium 265 mls @ 265 mls/hr 08/01/20 17:00 08/03/20 20:31 Chloride IV Infused Q48H [facility] Infusion Magnesium Sulfate 2 gm in 50 mls @ 25 mls/hr 08/04/20 08:13 08/04/20 08:40 Magnesium Sulfate/H2o IV 08/04/20 10:12 25 mls/hr ONCE ONE Administration Insulin Human Lispro 0 unit 07/28/20 07:30 08/04/20 08:42 Insulin Lispro 100 Unit/Ml 3 Ml Vial SUBCUT Not Given QIDACHS [facility] Protocol Loratadine 10 mg 07/28/20 09:00 08/04/20 08:49 Loratadine 10 Mg Tablet PO Not Given DAILY [facility] Metoprolol Tartrate 50 mg 07/27/20 22:23 08/04/20 08:50 Metoprolol Tartrate 50 Mg Tablet PO Not Given BID [facility] Protocol Non-Formulary Medication 1 drop 07/28/20 09:00 Timolol Maleate EYE-RIGHT DAILY [facility] Omeprazole 20 mg 07/28/20 06:30 08/04/20 06:32 Omeprazole 20 Mg Capsule.Dr PO Not Given DAILY@0630 [facility] Ondansetron HCl 4 mg 07/27/20 22:23 07/27/20 22:41 Ondansetron Hcl 4 Mg/2 Ml Vial IVPUSH 4 mg Q8H PRN Administration Nausea and Vomiting Pharmacy Consult 1 each 07/27/20 16:25 Consult Rx Perform Med Rec MISCELLANE ONCE PRN Consult order Polyethylene Glycol 17 gm 07/28/20 09:00 08/04/20 08:50 Polyethylene Glycol 3350 17 Gm Powd.Pack PO Not Given DAILY [facility] Sevelamer Carbonate 800 mg 07/28/20 17:00 08/04/20 08:46 Sevelamer Carbonate Tablet 800 Mg Tablet PO Not Given TIDWM [facility] Sodium Chloride 3 ml 07/28/20 00:00 08/04/20 08:41 0.9 % Sodium Chloride Flush 3 Ml Syringe IVFLUSH 3 ml QSHIFT [facility] Administration Vitamin D 50 mcg 07/28/20 09:00 08/04/20 08:48 Cholecalciferol (Vitamin D3) 25 Mcg Tablet PO Not Given DAILY [facility] Time Spent With Patient Time: Total time spent is greater than 50% in coordination of care (as documented) at patient's floor/unit and/or counseling patient: Time with patient: 25 - 35 minutes Procedures Date of Service Date of Service: 08/04/20 Quality Stroke Does the patient have a stroke diagnosis?: No VTE Prior VTE?: No VTE Risk Level:: Medical - moderate - high VTE Device Contraindication: N/A - Device Ordered VTE Drug Contraindication: Treatment Not Indicated
[2020-08-04] MEDS: Morphine Sulfate 2 MG/ML CARTRIDGE IVPUSH (11:14)
[2020-08-04 11:26] LABS: Glucose, Whole Blood 209 mg/dL (60-115)
--- NOTE | 2020-08-04 11:28 | PM.CCPN ---
Subjective Subjective Date of Service: 08/04/20 Interval History: 75-year-old lady with underlying diabetes mellitus, hypertension, peripheral arterial disease, CKD, coronary artery disease admitted on 07/27/2020 with right back to pain secondary to osteomyelitis and peripheral vascular disease, initially treated conservatively with antibiotics, eventually requiring fem-fem bypass, thrombectomy, and amputation of right great toe on 08/03/2020. Patient has been monitored in the intensive care unit in the postop period. She has had no significant events overnight and has been transferred to telemetry [place]. Critical Care Time (minutes): 0 Physical Exam Vital Signs: Vital Signs: Last Vital Signs Temp 98.9 F 08/04/20 08:00 Pulse 93 08/04/20 09:00 Resp 14 08/04/20 09:00 BP 171/52 H 08/04/20 09:00 Pulse Ox 97 08/04/20 09:00 Body Mass Index 23.1 Const: General: no acute distress, alert and awake Eyes: Sclerae: sclerae normal EOM: EOMs intact bilaterally Neck: Neck: Yes no lymphadenopathy, Yes trachea midline and Yes supple Resp: Effort & Inspection: normal respiratory effort and no respiratory distress Auscultation: clear to auscultation bilaterally Cardio: Rate: regular rate Rhythm: regular rhythm Heart sounds: no gallops, no murmurs and no rubs GI: Palpation (GI): Soft to palpation and Other GI palpation findings present ( Nontender) Auscultation: normal bowel sounds Extrem: General: No clubbing, No cyanosis and Yes pedal edema (Trace bilateral) Objective Data Labs CBC & Chem 7: 08/04/20 05:25 08/04/20 05:25 Labs: Laboratory Results - last 24 hr 08/03/20 08/03/20 08/03/20 10:56 17:53 19:04 WBC RBC Hgb Hct MCV MCH MCHC RDW Plt Count MPV Immature Gran % (Auto) Neut % (Auto) Lymph % (Auto) [place] % (Auto) Eos % (Auto) Baso % (Auto) Lymph # (Auto) [place] # (Auto) Eos # (Auto) Baso # (Auto) Abs Immat Gran (auto) Absolute Neuts (auto) Absolute Nucleated RBC Nucleated RBC % (auto) Smear Tech's Comments Sodium Potassium Chloride Carbon Dioxide Anion Gap BUN Creatinine Estim Creat Clear Calc Estimated GFR POC Glucose 202 H 210 H Random Glucose Calcium Phosphorus Magnesium Albumin Random Vancomycin Blood Type O Positive Antibody Screen NEGATIVE Crossmatch See Detail 08/03/20 08/03/20 08/03/20 19:11 19:11 19:41 WBC 15.6 H RBC 3.12 L Hgb 8.7 L Hct 28.0 L MCV 89.7 MCH 27.9 MCHC 31.1 RDW 16.2 H Plt Count 256 MPV 9.4 Immature Gran % (Auto) 0.8 H Neut % (Auto) 92.1 H Lymph % (Auto) 5.5 L [place] % (Auto) 1.4 L Eos % (Auto) 0.1 Baso % (Auto) 0.1 Lymph # (Auto) 0.9 L [place] # (Auto) 0.2 Eos # (Auto) 0.0 Baso # (Auto) 0.0 Abs Immat Gran (auto) 0.13 H Absolute Neuts (auto) 14.4 H Absolute Nucleated RBC 0.000 Nucleated RBC % (auto) 0.0 Smear Tech's Comments VERIFIED Sodium 140 Potassium 4.5 Chloride 112 H Carbon Dioxide 16 L Anion Gap 17 BUN 41 H Creatinine 3.05 H Estim Creat Clear Calc 14.6 Estimated GFR 15 POC Glucose Random Glucose 220 H Calcium 8.7 Phosphorus 4.1 Magnesium 1.8 Albumin 3.3 L Random Vancomycin 12.3 L Blood Type Antibody Screen Crossmatch 08/04/20 08/04/20 08/04/20 05:25 05:25 07:36 WBC 17.9 H RBC 2.80 L Hgb 7.9 L Hct 24.8 L MCV 88.6 MCH 28.2 MCHC 31.9 RDW 16.4 H Plt Count 272 MPV 9.7 Immature Gran % (Auto) Neut % (Auto) Lymph % (Auto) [place] % (Auto) Eos % (Auto) Baso % (Auto) Lymph # (Auto) [place] # (Auto) Eos # (Auto) Baso # (Auto) Abs Immat Gran (auto) Absolute Neuts (auto) Absolute Nucleated RBC 0.000 Nucleated RBC % (auto) 0.0 Smear Tech's Comments Sodium 137 Potassium 4.4 Chloride 110 H Carbon Dioxide 16 L Anion Gap 15 BUN 46 H Creatinine 3.23 H Estim Creat Clear Calc 13.9 Estimated GFR 14 POC Glucose 183 H Random Glucose 216 H Calcium 8.0 L D Phosphorus 4.4 Magnesium 1.6 Albumin 2.8 L Random Vancomycin Blood Type Antibody Screen Crossmatch 08/04/20 11:17 WBC RBC Hgb Hct MCV MCH MCHC RDW Plt Count MPV Immature Gran % (Auto) Neut % (Auto) Lymph % (Auto) [place] % (Auto) Eos % (Auto) Baso % (Auto) Lymph # (Auto) [place] # (Auto) Eos # (Auto) Baso # (Auto) Abs Immat Gran (auto) Absolute Neuts (auto) Absolute Nucleated RBC Nucleated RBC % (auto) Smear Tech's Comments Sodium Potassium Chloride Carbon Dioxide Anion Gap BUN Creatinine Estim Creat Clear Calc Estimated GFR POC Glucose 209 H Random Glucose Calcium Phosphorus Magnesium Albumin Random Vancomycin Blood Type Antibody Screen Crossmatch Microbiology Microbiology Results: Microbiology 07/27/20 17:11 Blood - Venous Blood Culture - Final No growth after 5 days. 07/27/20 17:10 Blood - Venous Blood Culture - Final No growth after 5 days. Progress Note: A&P Assessment and plan (1) PAD (peripheral artery disease): Status: Acute Assessment and Plan: Assessment: 75-year-old lady admitted with right osteomyelitis peripheral vascular disease requiring fem-fem bypass and right toe amputation on 08/03/2020 monitored in the intensive care unit in the postoperative period. Plan: Neuro: No acute issues. Cardiac: Peripheral vascular disease status post fem-fem bypass on 08/03/2020. Vascular surgery service care appreciated. Underlying hypertension and coronary artery disease. Maintain systolic blood pressure under 180. Pulmonary: No acute issues. Renal: No acute issues. Endo: No acute issues. Underlying diabetes mellitus GI: No acute issues. ID: Right osteomyelitis/dry gangrene status post amputation 08/03/2020. Heme/Onc: No acute issues. Psych: No acute issues. Miscellaneous: Patient poorly compliant with suggest medical treatments Prophylaxis: Heparin Diet: Diabetic (2) Osteomyelitis of great toe of right foot: Status: Acute (3) Diabetes: Status: Acute Quality Stroke Does the patient have a stroke diagnosis?: No VTE Prior VTE?: No VTE Risk Level:: Medical - moderate - high VTE Device Contraindication: N/A - Device Ordered VTE Drug Contraindication: Treatment Not Indicated
[2020-08-04] MEDS: Amoxicillin/Potassium Clav 500 MG TABLET PO (13:25)
[2020-08-04] MEDS: ondansetron HCL 4 MG/2 ML VIAL IVPUSH ×3 (14:24→22:59)
[2020-08-04 16:04] LABS: Glucose, Whole Blood 215 mg/dL (60-115)
[2020-08-04] MEDS: Artificial Tears 15 ML DROPS 2 DROP EYE-LEFT (16:32)
[2020-08-04] MEDS: Erythromycin Base 0.5% Oph Oin 1 GM TUBE 1 CM EYE-LEFT (16:32)
[2020-08-04] MEDS: Heparin Sodium,Porcine 5,000 UNIT/ML VIAL 5000 UNIT SUBCUT (16:32)
--- NOTE | 2020-08-04 17:17 | PM.PNNEP ---
Subjective Subjective Date of Service: 08/04/20 Interval history: 75-year-old lady s/p fem-fem bypass, thrombectomy, and amputation of right great toe on 08/03/2020 In the telemetry [place]. Physical Exam Vital Signs: Vital Signs: Last Vital Signs Temp 99.6 F 08/04/20 14:43 Pulse 102 H 08/04/20 14:43 Resp 14 08/04/20 14:43 BP 161/70 H 08/04/20 14:43 Pulse Ox 96 08/04/20 14:43 Body Mass Index 23.1 Const: General: cooperative, healthy appearing, comfortable, no acute distress, alert and awake Nutritional Appearance: average body habitus Orientation/consciousness: oriented to person, oriented to place, oriented to time and patient oriented x3 Limitations: no limitations and No language barrier HENMT: Other: Unremarkable Head: Yes normal to inspection Ears: hearing grossly normal bilaterally General nose exam: Normal external nose present Face and sinus: Yes normal facial exam Mouth: Normal oral and palatal mucosa present Throat: Yes posterior oropharynx normal Eyes: Other: 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 eyes, scabbing under the left lower eyelid General: appearance normal, both eyes and all related structures Sclerae: sclerae normal Pupils: Equal, round and reactive pupils present EOM: EOMs intact bilaterally Neck: Neck: Yes normal visual inspection, Yes no lymphadenopathy, Yes trachea midline and Yes supple Carotids: no bruits Chest: Chest palpation & inspection: normal inspection of the chest Resp: Effort & Inspection: normal respiratory effort, able to speak in complete sentences, no respiratory distress, no stridor and not tachypneic Auscultation: clear to auscultation bilaterally, no crackles, no rales, no rhonchi and no wheezes Cardio: Jugular venous distension: no JVD Palpation: normal PMI Rate: regular rate Rhythm: regular rhythm Heart sounds: S1 normal heart sound present, S2 normal heart sound present, no gallops, no murmurs and no rubs Bruits: no carotid bruits Peripheral pulses: Peripheral pulses 2+ throughout, posterior tibial pulses present (Right biphasic signal) and dorsalis pedis present (Right side DP signal) on the right (Right side DP signal) GI: Inspection: Yes normal to inspection Palpation (GI): Soft to palpation, nontender and Other GI palpation findings present ( Nontender) Auscultation: normal bowel sounds Back/Spine/Pelvis: Other: unremarkable Thoracic/Lumbar Spine: thoracic and lumbar spine normal to inspection Skin: Other: warm, dry, no rash General skin exam: no rashes or lesions noted Wounds: amputation site (Right foot dressing clean dry intact) and wounds noted (Right great toe gangrene) Hair: normal Neuro: General: oriented to person, oriented to place, oriented to time, patient oriented x3, moves all extremities and CN's II-XI intact bilaterally Cranial nerves: Yes CN's II-XII intact bilaterally, Yes Equal, round and reactive pupils present, Yes Normal hearing present and Yes Other cranial nerve findings present Cognition (Neuro): normal cognition Speech: No Abnormal speech present Gait exam (Neuro): Normal gait present Motor exam (neuro): 5/5 motor strength present throughout Extrem: Other: right great toe necrosis General: Yes normal to inspection, Yes full ROM, Yes no clubbing, cyanosis or edema, Yes no pedal edema, No clubbing, No cyanosis, No edema and Yes pedal edema (Trace bilateral) Psych: Appearance: grossly normal and well kempt Mental Status: mental status grossly normal and other Speech and movement: Normal speech and movement present Affect: normal affect Objective Data Labs CBC & Chem 7: 08/04/20 05:25 08/04/20 05:25 Labs: Laboratory Results - last 24 hr 08/03/20 08/03/20 08/03/20 10:56 17:53 19:04 WBC RBC Hgb Hct MCV MCH MCHC RDW Plt Count MPV Immature Gran % (Auto) Neut % (Auto) Lymph % (Auto) [place] % (Auto) Eos % (Auto) Baso % (Auto) Lymph # (Auto) [place] # (Auto) Eos # (Auto) Baso # (Auto) Abs Immat Gran (auto) Absolute Neuts (auto) Absolute Nucleated RBC Nucleated RBC % (auto) Smear Tech's Comments Sodium Potassium Chloride Carbon Dioxide Anion Gap BUN Creatinine Estim Creat Clear Calc Estimated GFR POC Glucose 202 H 210 H Random Glucose Calcium Phosphorus Magnesium Albumin Random Vancomycin Crossmatch See Detail 08/03/20 08/03/20 08/03/20 19:11 19:11 19:41 WBC 15.6 H RBC 3.12 L Hgb 8.7 L Hct 28.0 L MCV 89.7 MCH 27.9 MCHC 31.1 RDW 16.2 H Plt Count 256 MPV 9.4 Immature Gran % (Auto) 0.8 H Neut % (Auto) 92.1 H Lymph % (Auto) 5.5 L [place] % (Auto) 1.4 L Eos % (Auto) 0.1 Baso % (Auto) 0.1 Lymph # (Auto) 0.9 L [place] # (Auto) 0.2 Eos # (Auto) 0.0 Baso # (Auto) 0.0 Abs Immat Gran (auto) 0.13 H Absolute Neuts (auto) 14.4 H Absolute Nucleated RBC 0.000 Nucleated RBC % (auto) 0.0 Smear Tech's Comments VERIFIED Sodium 140 Potassium 4.5 Chloride 112 H Carbon Dioxide 16 L Anion Gap 17 BUN 41 H Creatinine 3.05 H Estim Creat Clear Calc 14.6 Estimated GFR 15 POC Glucose Random Glucose 220 H Calcium 8.7 Phosphorus 4.1 Magnesium 1.8 Albumin 3.3 L Random Vancomycin 12.3 L Crossmatch 08/04/20 08/04/20 08/04/20 05:25 05:25 07:36 WBC 17.9 H RBC 2.80 L Hgb 7.9 L Hct 24.8 L MCV 88.6 MCH 28.2 MCHC 31.9 RDW 16.4 H Plt Count 272 MPV 9.7 Immature Gran % (Auto) Neut % (Auto) Lymph % (Auto) [place] % (Auto) Eos % (Auto) Baso % (Auto) Lymph # (Auto) [place] # (Auto) Eos # (Auto) Baso # (Auto) Abs Immat Gran (auto) Absolute Neuts (auto) Absolute Nucleated RBC 0.000 Nucleated RBC % (auto) 0.0 Smear Tech's Comments Sodium 137 Potassium 4.4 Chloride 110 H Carbon Dioxide 16 L Anion Gap 15 BUN 46 H Creatinine 3.23 H Estim Creat Clear Calc 13.9 Estimated GFR 14 POC Glucose 183 H Random Glucose 216 H Calcium 8.0 L D Phosphorus 4.4 Magnesium 1.6 Albumin 2.8 L Random Vancomycin Crossmatch 08/04/20 08/04/20 11:17 15:46 WBC RBC Hgb Hct MCV MCH MCHC RDW Plt Count MPV Immature Gran % (Auto) Neut % (Auto) Lymph % (Auto) [place] % (Auto) Eos % (Auto) Baso % (Auto) Lymph # (Auto) [place] # (Auto) Eos # (Auto) Baso # (Auto) Abs Immat Gran (auto) Absolute Neuts (auto) Absolute Nucleated RBC Nucleated RBC % (auto) Smear Tech's Comments Sodium Potassium Chloride Carbon Dioxide Anion Gap BUN Creatinine Estim Creat Clear Calc Estimated GFR POC Glucose 209 H 215 H Random Glucose Calcium Phosphorus Magnesium Albumin Random Vancomycin Crossmatch Microbiology Microbiology Results: Microbiology 07/27/20 17:11 Blood - Venous Blood Culture - Final No growth after 5 days. 07/27/20 17:10 Blood - Venous Blood Culture - Final No growth after 5 days. 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 Epo def - % sat is 20% - Fe stores OK Epo- 20 K x 1 dose given this week Will follow Time Spent With Patient Time: Total time spent is greater than 50% in coordination of care (as documented) at patient's floor/unit and/or counseling patient: Procedures Date of Service Date of Service: 08/04/20 Progress Note: Quality Stroke Does the patient have a stroke diagnosis?: No
[2020-08-04 20:31] LABS: Glucose, Whole Blood 259 mg/dL (60-115)
[2020-08-04] MEDS: hydrALAZINE HCl 20 MG/ML VIAL 10 MG IVPUSH (21:02)
--- NOTE | 2020-08-04 23:12 | PC.NURSE ---
Addendum entered by Luciana Burciaga RN 08/05/20 05:46: Pt had temp of 101.6 at 0430, tylenol administered. Pt hr low 100s on tele, bp 174/74. Pt refusing prn hydralazine. 0500 temp checked 101.0, pt refusing ice packs at this time. Dr Herrera notified. Will continue to encourage pt to participate in care. Original Note: Pt only alert to person, confused to time and place, vague to situation. Pt resistive to care, refusing 2100 and 2300 medications including insulin, lopressor, and po antibiotics. Dr Herrera notified, no new orders at this time. Pt educated on the importance of these medications. Pt stated the doctor told me not to take anything by mouth because of my nausea. Prn zofran administered, pt still refusing medications. This RN explained to pt she is on a clear liquid diet and can take po medications. Pt also stating she is having pain in groin at surgical site. When offered pain medication or other pain management interventions, pt refused. Will continue to educate pt.
[2020-08-05] VITALS (13 sets, daily range): BP systolic 130–174; BP diastolic 59–74; PULSE 80–110; RESP 16–20; TEMP 36.1–38.7; O2SAT 93–96
[2020-08-05] MEDS: Morphine Sulfate 2 MG/ML CARTRIDGE IVPUSH ×3 (01:44→20:03)
[2020-08-05] MEDS: Acetaminophen 325 MG TABLET 650 MG PO (04:29)
[2020-08-05] MEDS: Heparin Sodium,Porcine 5,000 UNIT/ML VIAL 5000 UNIT SUBCUT ×2 (04:31→17:09)
[2020-08-05 06:53] LABS: MANUAL DIFF FLAG NO
[2020-08-05 07:04] LABS: Basophils Percent Auto 0.1 % (0-2); Eosinophils Percent Auto 0.1 % (0-4); Hematocrit 24.3 % (37-47); Hemoglobin 7.7 g/dl (12.0-16.0); Imm Gran Abs Auto 0.09 X10*3/uL (0.00-0.03); Imm Gran Pct Auto 0.7 % (0.0-0.4); Mean Corpuscular HGB Conc 31.7 g/dl (31.0-35.0); Mean Corpuscular Hemoglobin 28.1 pg (27.0-33.0); Mean Corpuscular Volume 88.7 fL (80-98); Monocytes Absolute Auto 1.2 X10*3/uL (0.1-1.2); Monocytes Percent Auto 8.5 % (2-11); Neutrophils Absolute Auto 11.6 X10*3/uL (2.0-8.3); Neutrophils Percent Auto 83.6 % (45-73); Platelet Count 267 X10*3/uL (160-400); Red Blood Count 2.74 X10*6/uL (4.20-5.50); Red Cell Distribution Width 16.6 % (11.0-16.0); White Blood Count 13.8 X10*3/uL (4.8-10.8)
[2020-08-05 07:34] LABS: Glucose, Whole Blood 198 mg/dL (60-115)
[2020-08-05 07:37] LABS: Anion Gap 14 (12-20); Blood Urea Nitrogen 48 mg/dL (9-16); Calcium 7.9 mg/dL (8.4-10.2); Carbon Dioxide 16 mmol/L (22-29); Chloride 110 mmol/L (96-108); Creatinine Clr Calc Pharmacy 12.8; Estimated Glomerular Filt Rate 13; Glucose Random 219 mg/dL (60-115); Magnesium 1.9 mg/dL (1.6-2.6); Phosphorus 3.4 mg/dL (2.7-4.5); Potassium 4.1 mmol/L (3.3-5.1); Sodium 136 mmol/L (135-145)
--- NOTE | 2020-08-05 08:12 | PM.PNNEP ---
Subjective Subjective Date of Service: 08/05/20 Interval history: 75-year-old lady s/p fem-fem bypass, thrombectomy, and amputation of right great toe on 08/03/2020 . Physical Exam Vital Signs: Vital Signs: Last Vital Signs Temp 98.9 F 08/05/20 08:00 Pulse 95 08/05/20 08:00 Resp 18 08/05/20 08:00 BP 140/64 H 08/05/20 08:00 Pulse Ox 94 08/05/20 08:00 Body Mass Index 23.1 Const: General: cooperative, healthy appearing, comfortable, no acute distress, alert and awake Nutritional Appearance: average body habitus Orientation/consciousness: oriented to person, oriented to place, oriented to time and patient oriented x3 Limitations: no limitations and No language barrier HENMT: Other: Unremarkable Head: Yes normal to inspection Ears: hearing grossly normal bilaterally General nose exam: Normal external nose present Face and sinus: Yes normal facial exam Mouth: Normal oral and palatal mucosa present Throat: Yes posterior oropharynx normal Eyes: Other: 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 eyes, scabbing under the left lower eyelid General: appearance normal, both eyes and all related structures Sclerae: sclerae normal Pupils: Equal, round and reactive pupils present EOM: EOMs intact bilaterally Neck: Neck: Yes normal visual inspection, Yes no lymphadenopathy, Yes trachea midline and Yes supple Carotids: no bruits Chest: Chest palpation & inspection: normal inspection of the chest Resp: Effort & Inspection: normal respiratory effort, able to speak in complete sentences, no respiratory distress, no stridor and not tachypneic Auscultation: clear to auscultation bilaterally, no crackles, no rales, no rhonchi and no wheezes Cardio: Jugular venous distension: no JVD Palpation: normal PMI Rate: regular rate Rhythm: regular rhythm Heart sounds: S1 normal heart sound present, S2 normal heart sound present, no gallops, no murmurs and no rubs Bruits: no carotid bruits Peripheral pulses: Peripheral pulses 2+ throughout, posterior tibial pulses present (Right biphasic signal) and dorsalis pedis present (Right side DP signal) on the right (Right side DP signal) GI: Inspection: Yes normal to inspection Palpation (GI): Soft to palpation, nontender and Other GI palpation findings present ( Nontender) Auscultation: normal bowel sounds Back/Spine/Pelvis: Other: unremarkable Thoracic/Lumbar Spine: thoracic and lumbar spine normal to inspection Skin: Other: warm, dry, no rash General skin exam: no rashes or lesions noted Wounds: amputation site (Right foot dressing clean dry intact) and wounds noted (Right great toe gangrene) Hair: normal Neuro: General: oriented to person, oriented to place, oriented to time, patient oriented x3, moves all extremities and CN's II-XI intact bilaterally Cranial nerves: Yes CN's II-XII intact bilaterally, Yes Equal, round and reactive pupils present, Yes Normal hearing present and Yes Other cranial nerve findings present Cognition (Neuro): normal cognition Speech: No Abnormal speech present Gait exam (Neuro): Normal gait present Motor exam (neuro): 5/5 motor strength present throughout Extrem: Other: right great toe necrosis General: Yes normal to inspection, Yes full ROM, Yes no clubbing, cyanosis or edema, Yes no pedal edema, No clubbing, No cyanosis, No edema and Yes pedal edema (Trace bilateral) Psych: Appearance: grossly normal and well kempt Mental Status: mental status grossly normal and other Speech and movement: Normal speech and movement present Affect: normal affect Objective Data Labs CBC & Chem 7: 08/05/20 06:00 08/05/20 06:00 Labs: Laboratory Results - last 24 hr 08/04/20 08/04/20 08/04/20 11:17 15:46 20:26 WBC RBC Hgb Hct MCV MCH MCHC RDW Plt Count MPV Immature Gran % (Auto) Neut % (Auto) Lymph % (Auto) [place] % (Auto) Eos % (Auto) Baso % (Auto) Lymph # (Auto) [place] # (Auto) Eos # (Auto) Baso # (Auto) Abs Immat Gran (auto) Absolute Neuts (auto) Absolute Nucleated RBC Nucleated RBC % (auto) Sodium Potassium Chloride Carbon Dioxide Anion Gap BUN Creatinine Estim Creat Clear Calc Estimated GFR POC Glucose 209 H 215 H 259 H Random Glucose Calcium Phosphorus Magnesium 08/05/20 08/05/20 08/05/20 06:00 06:00 07:21 WBC 13.8 H RBC 2.74 L Hgb 7.7 L Hct 24.3 L MCV 88.7 MCH 28.1 MCHC 31.7 RDW 16.6 H Plt Count 267 MPV 10.0 Immature Gran % (Auto) 0.7 H Neut % (Auto) 83.6 H Lymph % (Auto) 7.0 L [place] % (Auto) 8.5 Eos % (Auto) 0.1 Baso % (Auto) 0.1 Lymph # (Auto) 1.0 L [place] # (Auto) 1.2 Eos # (Auto) 0.0 Baso # (Auto) 0.0 Abs Immat Gran (auto) 0.09 H Absolute Neuts (auto) 11.6 H Absolute Nucleated RBC 0.000 Nucleated RBC % (auto) 0.0 Sodium 136 Potassium 4.1 Chloride 110 H Carbon Dioxide 16 L Anion Gap 14 BUN 48 H Creatinine 3.47 H Estim Creat Clear Calc 12.8 Estimated GFR 13 POC Glucose 198 H Random Glucose 219 H Calcium 7.9 L Phosphorus 3.4 Magnesium 1.9 Microbiology Microbiology Results: Microbiology 07/27/20 17:11 Blood - Venous Blood Culture - Final No growth after 5 days. 07/27/20 17:10 Blood - Venous Blood Culture - Final No growth after 5 days. 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 Epo def - % sat is 20% - she would benefit from IV iron Epo- 20 K x 1 dose given this week Will follow Time Spent With Patient Time: Total time spent is greater than 50% in coordination of care (as documented) at patient's floor/unit and/or counseling patient: Procedures Date of Service Date of Service: 08/05/20 Progress Note: Quality Stroke Does the patient have a stroke diagnosis?: No
[2020-08-05] MEDS: Cholecalciferol (Vitamin D3) 25 MCG TABLET 50 MCG PO (09:56)
[2020-08-05] MEDS: Aspirin Enteric Coated 81 MG TABLET.DR PO (09:57)
[2020-08-05] MEDS: Ascorbic Acid 250 MG TABLET PO ×2 (09:57→20:03)
[2020-08-05] MEDS: Erythromycin Base 0.5% Oph Oin 1 GM TUBE 1 CM EYE-LEFT ×4 (09:57→20:03)
[2020-08-05] MEDS: Atropine Sulfate 1 % Ophth Sol 2 ML BOTTLE 1 DROP EYE-LEFT ×3 (09:59→20:03)
[2020-08-05] MEDS: Artificial Tears 15 ML DROPS 2 DROP EYE-LEFT ×4 (09:59→20:03)
[2020-08-05] MEDS: calcitrioL 0.25 MCG CAPSULE PO (10:05)
[2020-08-05] MEDS: 0.9 % Sodium Chloride Flush 3 ML SYRINGE IVFLUSH ×3 (10:10→20:04)
[2020-08-05 11:08] LABS: Glucose, Whole Blood 170 mg/dL (60-115)
[2020-08-05] MEDS: Fluticasone Propionate Nasal 16 GM SPRAY 1 SPRAY NOSTRIL-B (14:28)
[2020-08-05] MEDS: Metoprolol Tartrate 50 MG TABLET PO ×2 (14:45→20:02)
[2020-08-05] MEDS: amLODIPine Besylate 5 MG TABLET 10 MG PO (14:46)
--- NOTE | 2020-08-05 15:49 | HO.PM.IMPN ---
Subjective Subjective Date of Service: 08/05/20 Interval History: patient awake alert refusing her medications, no further bout of nausea, vomiting, complaining of pain, no acute issues overnight. 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, no dizziness CVS no chest pain, no palpitation GI no nausea, no vomiting Physical Exam Vital Signs: Vital Signs: Last Vital Signs Temp 96.9 F 08/05/20 11:59 Pulse 98 08/05/20 14:46 Resp 18 08/05/20 11:59 BP 159/72 H 08/05/20 14:46 Pulse Ox 93 08/05/20 11:59 Body Mass Index 23.1 Gen: legally blind, awake alert no distress HEENT: sclera anicteric, moist mucus membranes Neck: supple Lungs: clear to auscultation bilaterally Heart: regular rate and rhythm, no murmurs Abd: soft, non-tender, non-distended Ext: R foot dressing in place Skin: warm/well-perfused Neuro: alert and oriented x3, no focal findings Psych: appropriate affect Objective Data Current Medications Generic Name Dose Route Start Last Admin Trade Name Harmanq PRN Reason Stop Dose Admin Acetaminophen 650 mg 07/27/20 22:23 08/05/20 04:29 Acetaminophen 325 Mg Tablet PO 650 mg Q6H PRN Administration Pain, Mild (Pain Scale 1-3) Amlodipine Besylate 10 mg 07/28/20 09:00 08/05/20 14:46 Amlodipine Besylate 5 Mg Tablet PO 10 mg DAILY RAUL Administration Protocol Amoxicillin/Clavulanate Potassium 500 mg 08/04/20 11:30 08/05/20 11:28 Amoxicillin/Potassium Clav 500 Mg Tablet PO Not Given Q12H RAUL Artificial Tears 2 drop 07/29/20 13:00 08/05/20 14:27 Artificial Tears 15 Ml Drops EYE-LEFT 2 drop QID RAUL Administration Ascorbic Acid 250 mg 07/28/20 09:00 08/05/20 09:57 Ascorbic Acid 250 Mg Tablet PO 250 mg BID RAUL Administration Aspirin 81 mg 07/28/20 09:00 08/05/20 09:57 Aspirin Enteric Coated 81 Mg Tablet. PO 81 mg DAILY RAUL Administration Atorvastatin Calcium 80 mg 07/27/20 22:23 08/04/20 21:06 Atorvastatin Calcium 80 Mg Tablet PO Not Given BEDTIME RAUL Atropine Sulfate 1 drop 07/27/20 22:23 08/05/20 14:27 Atropine Sulfate 1 % Ophth Jacki 2 Ml Bottle EYE-LEFT 1 drop TID RAUL Administration Bumetanide 0.5 mg 07/27/20 22:23 08/05/20 09:57 Bumetanide 1 Mg Tablet PO Not Given BID [facility] Protocol Calcitriol 0.25 mcg 07/28/20 09:00 08/05/20 10:05 Calcitriol 0.25 Mcg Capsule PO 0.25 mcg DAILY RAUL Administration Cyanocobalamin 1,000 mcg 08/15/20 09:00 Cyanocobalamin (Vitamin B-12) 1,000 Mcg/Ml Vial IM Q28D [facility] Docusate Sodium 100 mg 07/27/20 22:23 Docusate Sodium 100 Mg Capsule PO DAILY PRN Constipation Doxycycline Hyclate 100 mg 08/04/20 11:00 08/05/20 10:01 Doxycycline Hyclate 100 Mg Tablet PO Not Given Q12H [facility] Erythromycin 1 cm 07/29/20 13:00 08/05/20 14:27 Erythromycin Base 0.5% Oph Oin 1 Gm Tube EYE-LEFT 1 cm QID RAUL Administration Fluticasone Propionate 1 spray 07/28/20 09:00 08/05/20 14:37 Fluticasone Propionate Nasal 16 Gm [place] NOSTRIL-B Not Given DAILY [facility] Heparin Sodium (Porcine) 5,000 unit 07/29/20 17:00 08/05/20 04:31 Heparin Sodium,Porcine 5,000 Unit/Ml Vial SUBCUT 5,000 unit Q12H RAUL Administration Hydralazine HCl 10 mg 08/03/20 16:52 08/04/20 21:02 Hydralazine Hcl 20 Mg/Ml Vial IVPUSH 10 mg Q6H PRN Administration SBP > 160 Protocol Insulin Human Lispro 0 unit 07/28/20 07:30 08/05/20 11:27 Insulin Lispro 100 Unit/Ml 3 Ml Vial SUBCUT Not Given QIDACHS [facility] Protocol Loratadine 10 mg 07/28/20 09:00 08/05/20 10:00 Loratadine 10 Mg Tablet PO Not Given DAILY [facility] Metoprolol Tartrate 50 mg 07/27/20 22:23 08/05/20 14:45 Metoprolol Tartrate 50 Mg Tablet PO 50 mg BID RAUL Administration Protocol Morphine Sulfate 2 mg 08/04/20 10:58 08/05/20 10:05 Morphine Sulfate 2 Mg/Ml Cartridge IVPUSH 2 mg Q2H PRN Administration pain,severe Non-Formulary Medication 1 drop 07/28/20 09:00 Timolol Maleate EYE-RIGHT DAILY [facility] Omeprazole 20 mg 07/28/20 06:30 08/05/20 05:14 Omeprazole 20 Mg Capsule.Dr PO Not Given DAILY@0630 [facility] Ondansetron HCl 4 mg 07/27/20 22:23 08/04/20 22:59 Ondansetron Hcl 4 Mg/2 Ml Vial IVPUSH 4 mg Q8H PRN Administration Nausea and Vomiting Pharmacy Consult 1 each 07/27/20 16:25 Consult Rx Perform Med Rec MISCELLANE ONCE PRN Consult order Polyethylene Glycol 17 gm 07/28/20 09:00 08/05/20 10:01 Polyethylene Glycol 3350 17 Gm Powd.Pack PO Not Given DAILY [facility] Sevelamer Carbonate 800 mg 07/28/20 17:00 08/05/20 12:20 Sevelamer Carbonate Tablet 800 Mg Tablet PO Not Given TIDWM [facility] Sodium Chloride 3 ml 07/28/20 00:00 08/05/20 14:29 0.9 % Sodium Chloride Flush 3 Ml Syringe IVFLUSH 3 ml QSHIFT [facility] Administration Vitamin D 50 mcg 07/28/20 09:00 08/05/20 09:56 Cholecalciferol (Vitamin D3) 25 Mcg Tablet PO 50 mcg DAILY [facility] Administration Labs CBC & Chem 7: 08/05/20 06:00 08/05/20 06:00 Labs: Laboratory Results - last 24 hr 08/04/20 08/04/20 08/05/20 15:46 20:26 06:00 WBC 13.8 H RBC 2.74 L Hgb 7.7 L Hct 24.3 L MCV 88.7 MCH 28.1 MCHC 31.7 RDW 16.6 H Plt Count 267 MPV 10.0 Immature Gran % (Auto) 0.7 H Neut % (Auto) 83.6 H Lymph % (Auto) 7.0 L [place] % (Auto) 8.5 Eos % (Auto) 0.1 Baso % (Auto) 0.1 Lymph # (Auto) 1.0 L [place] # (Auto) 1.2 Eos # (Auto) 0.0 Baso # (Auto) 0.0 Abs Immat Gran (auto) 0.09 H Absolute Neuts (auto) 11.6 H Absolute Nucleated RBC 0.000 Nucleated RBC % (auto) 0.0 Sodium Potassium Chloride Carbon Dioxide Anion Gap BUN Creatinine Estim Creat Clear Calc Estimated GFR POC Glucose 215 H 259 H Random Glucose Calcium Phosphorus Magnesium 08/05/20 08/05/20 08/05/20 06:00 07:21 11:01 WBC RBC Hgb Hct MCV MCH MCHC RDW Plt Count MPV Immature Gran % (Auto) Neut % (Auto) Lymph % (Auto) [place] % (Auto) Eos % (Auto) Baso % (Auto) Lymph # (Auto) [place] # (Auto) Eos # (Auto) Baso # (Auto) Abs Immat Gran (auto) Absolute Neuts (auto) Absolute Nucleated RBC Nucleated RBC % (auto) Sodium 136 Potassium 4.1 Chloride 110 H Carbon Dioxide 16 L Anion Gap 14 BUN 48 H Creatinine 3.47 H Estim Creat Clear Calc 12.8 Estimated GFR 13 POC Glucose 198 H 170 H Random Glucose 219 H Calcium 7.9 L Phosphorus 3.4 Magnesium 1.9 Quality Stroke Does the patient have a stroke diagnosis?: No VTE Prior VTE?: No VTE Risk Level:: Medical - moderate - high VTE Device Contraindication: N/A - Device Ordered VTE Drug Contraindication: Treatment Not Indicated Assessment and Plan (1) Osteomyelitis of great toe of right foot: Status: Acute (2) PAD (peripheral artery disease): Status: Acute (3) Acute kidney injury: Status: Acute (4) Normocytic anemia: Status: Acute (5) Abnormal myocardial perfusion study: Status: Acute (6) Diabetes: Status: Acute Assessment and Plan: 75yo F with DM2, HTN, PAD, abnormal stress test back in April sent in from [facility] with nonhealing gangrenous R great toe # acute osteomyelitis R great toe with gangrene with PAD (R iliac artery occlusion) - previously treated at last admission in April with long-term IV ertapenem, s/p IV vanco + pip/anny x 7 days s/p fem-fem bypass and right great toe amputation, dressing change on Friday by vascular surgeon continue ASA, atorvastatin, and metoprolol # KRYSTYNA/CKD4-5 - Nephrology consult appreciated. avoid nephrotoxins. s/p IV fluids pre- and post-angiogram, will hold bumex today, and follow renal function closely that seems to be stable # normocytic anemia - likely anemia of CKD + due to underlying osteomyelitis but check FOBT. T+S active and now agreeable to transfusion, 1u requested by surgery/anesthesia today; epo given as per Nephrology 07/30 # severe constipation - continue bowel regimen # B12 deficiency - on IM repletion monthly # HTN - refusing medication (amlodipine + metoprolol). per psychiatry evaluation last admission pt competent to make own decision, explain patient importance of taking medication she is agreeing to take medication later in the day,continue to revisit. # L eye blepharitis - improving with erythromycin ointment, artificial tears # DM2 - correction-dose lispro; well-controlled, A1c only 6.2 # VTE ppx - UFH # dispo - pt came from [facility] but would like to change to [facility]; CM working on this possible discharge early next week
[2020-08-05 16:16] LABS: Glucose, Whole Blood 146 mg/dL (60-115)
[2020-08-05 20:15] LABS: Glucose, Whole Blood 187 mg/dL (60-115)
[2020-08-05] MEDS: Amoxicillin/Potassium Clav 500 MG TABLET PO (23:54)
[2020-08-06] VITALS (8 sets, daily range): BP systolic 132–155; BP diastolic 61–69; PULSE 90–95; RESP 16–18; TEMP 36.8–37.4; O2SAT 91–93
[2020-08-06] MEDS: Morphine Sulfate 2 MG/ML CARTRIDGE IVPUSH (03:15)
[2020-08-06 07:13] LABS: Glucose, Whole Blood 152 mg/dL (60-115)
[2020-08-06] MEDS: Ascorbic Acid 250 MG TABLET PO ×2 (08:59→21:25)
[2020-08-06] MEDS: calcitrioL 0.25 MCG CAPSULE PO (08:59)
[2020-08-06] MEDS: Cholecalciferol (Vitamin D3) 25 MCG TABLET 50 MCG PO (08:59)
[2020-08-06] MEDS: Atropine Sulfate 1 % Ophth Sol 2 ML BOTTLE 1 DROP EYE-LEFT ×3 (08:59→21:24)
[2020-08-06] MEDS: Fluticasone Propionate Nasal 16 GM SPRAY 1 SPRAY NOSTRIL-B (08:59)
[2020-08-06] MEDS: Erythromycin Base 0.5% Oph Oin 1 GM TUBE 1 CM EYE-LEFT ×4 (08:59→21:26)
[2020-08-06] MEDS: Aspirin Enteric Coated 81 MG TABLET.DR PO (08:59)
[2020-08-06] MEDS: Artificial Tears 15 ML DROPS 2 DROP EYE-LEFT ×4 (09:00→21:24)
[2020-08-06] MEDS: 0.9 % Sodium Chloride Flush 3 ML SYRINGE IVFLUSH ×3 (09:17→21:26)
--- NOTE | 2020-08-06 09:34 | P.PNNP_ITS ---
Subjective Subjective Date of Service: 08/06/20 Interval history: patient awake alert refusing her medications, no further bout of nausea, vomiting, complaining of pain, no acute issues overnight. 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, no dizziness CVS no chest pain, no palpitation GI no nausea, no vomiting Physical Exam Vital Signs: Vital Signs: Last Vital Signs Temp 98.3 F 08/06/20 07:24 Pulse 90 08/06/20 07:24 Resp 16 08/06/20 07:24 BP 132/61 08/06/20 07:24 Pulse Ox 93 08/06/20 09:17 Body Mass Index 23.1 Const: General: cooperative, healthy appearing, comfortable, no acute distress, alert and awake Nutritional Appearance: average body habitus Orientation/consciousness: oriented to person, oriented to place, oriented to time and patient oriented x3 Limitations: no limitations and No language barrier HENMT: Other: Unremarkable Head: Yes normal to inspection Ears: hearing grossly normal bilaterally General nose exam: Normal external nose present Face and sinus: Yes normal facial exam Mouth: Normal oral and palatal mucosa present Throat: Yes posterior oropharynx normal Eyes: Other: 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 eyes, scabbing under the left lower eyelid General: appearance normal, both eyes and all related structures Sclerae: sclerae normal Pupils: Equal, round and reactive pupils present EOM: EOMs intact bilaterally Neck: Neck: Yes normal visual inspection, Yes no lymphadenopathy, Yes trachea midline and Yes supple Carotids: no bruits Chest: Chest palpation & inspection: normal inspection of the chest Resp: Effort & Inspection: normal respiratory effort, able to speak in complete sentences, no respiratory distress, no stridor and not tachypneic Auscultation: clear to auscultation bilaterally, no crackles, no rales, no rhonchi and no wheezes Cardio: Jugular venous distension: no JVD Palpation: normal PMI Rate: regular rate Rhythm: regular rhythm Heart sounds: S1 normal heart sound present, S2 normal heart sound present, no gallops, no murmurs and no rubs Bruits: no carotid bruits Peripheral pulses: Peripheral pulses 2+ throughout, posterior tibial pulses present (Right biphasic signal) and dorsalis pedis present (Right side DP signal) on the right (Right side DP signal) GI: Inspection: Yes normal to inspection Palpation (GI): Soft to palpation, nontender and Other GI palpation findings present ( Nontender) Auscultation: normal bowel sounds Back/Spine/Pelvis: Other: unremarkable Thoracic/Lumbar Spine: thoracic and lumbar spine normal to inspection Skin: Other: warm, dry, no rash General skin exam: no rashes or lesions noted Wounds: amputation site (Right foot dressing clean dry intact) and wounds noted (Right great toe gangrene) Hair: normal Neuro: General: oriented to person, oriented to place, oriented to time, patient oriented x3, moves all extremities and CN's II-XI intact bilaterally Cranial nerves: Yes CN's II-XII intact bilaterally, Yes Equal, round and reactive pupils present, Yes Normal hearing present and Yes Other cranial nerve findings present Cognition (Neuro): normal cognition Speech: No Abnormal speech present Gait exam (Neuro): Normal gait present Motor exam (neuro): 5/5 motor strength present throughout Extrem: Other: right great toe necrosis General: Yes normal to inspection, Yes full ROM, Yes no clubbing, cyanosis or edema, Yes no pedal edema, No clubbing, No cyanosis, No edema and Yes pedal edema (Trace bilateral) Psych: Appearance: grossly normal and well kempt Mental Status: mental status grossly normal and other Speech and movement: Normal speech and movement present Affect: normal affect Objective Data Labs CBC & Chem 7: 08/05/20 06:00 08/05/20 06:00 Labs: Laboratory Results - last 24 hr 08/05/20 08/05/20 08/05/20 11:01 16:03 19:57 POC Glucose 170 H 146 H 187 H 08/06/20 06:59 POC Glucose 152 H Microbiology Microbiology Results: Microbiology 07/27/20 17:11 Blood - Venous Blood Culture - Final No growth after 5 days. 07/27/20 17:10 Blood - Venous Blood Culture - Final No growth after 5 days. Assessment & Plan Assessment and plan (1) Osteomyelitis of great toe of right foot: Status: Acute (2) PAD (peripheral artery disease): Status: Acute (3) Acute kidney injury: Status: Acute (4) Normocytic anemia: Status: Acute (5) Abnormal myocardial perfusion study: Status: Acute (6) Diabetes: Status: Acute Assessment and Plan: 75yo F with DM2, HTN, PAD, abnormal stress test back in April [facility] with nonhealing gangrenous R great toe low urine output recorded labs pending would get urine studies, UA, FENA EPO IV iron when off IV abx Time Spent With Patient Time: Total time spent is greater than 50% in coordination of care (as documented) at patient's floor/unit and/or counseling patient: Procedures Date of Service Date of Service: 08/06/20 Progress Note: Quality Stroke Does the patient have a stroke diagnosis?: No
[2020-08-06] MEDS: Amoxicillin/Potassium Clav 500 MG TABLET PO (10:51)
[2020-08-06 11:05] LABS: Glucose, Whole Blood 166 mg/dL (60-115)
[2020-08-06 12:20] LABS: Anion Gap 12 (12-20); Blood Urea Nitrogen 56 mg/dL (9-16); Carbon Dioxide 20 mmol/L (22-29); Chloride 109 mmol/L (96-108); Creatinine Clr Calc Pharmacy 12.1; Estimated Glomerular Filt Rate 12; Glucose Random 176 mg/dL (60-115); Potassium 4.6 mmol/L (3.3-5.1); Sodium 136 mmol/L (135-145)
--- NOTE | 2020-08-06 15:38 | P.PNIM_ITS ---
Subjective Subjective Date of Service: 08/06/20 Interval History: awake alert answering questions appropriately, denies acute pain, by mouth intake remains low, decreased urinary output, denies fever chills, no other acute issues overnight. 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 CVS no chest pain, no palpitation GI no nausea, no vomiting Physical Exam Vital Signs: Vital Signs: Last Vital Signs Temp 99.3 F 08/06/20 15:28 Pulse 90 08/06/20 15:28 Resp 16 08/06/20 15:28 BP 132/61 08/06/20 15:28 Pulse Ox 92 08/06/20 15:28 Body Mass Index 23.1 Gen: legally blind, awake alert no distress HEENT: sclera anicteric, moist mucus membranes Neck: supple Lungs: clear to auscultation bilaterally Heart: regular rate and rhythm, no murmurs Abd: soft, non-tender, non-distended Ext: R foot dressing in place , no drainage noted Skin: warm/well-perfused Neuro: alert and oriented x3, no focal findings Psych: appropriate affect Objective Data Current Medications Generic Name Dose Route Start Last Admin Trade Name Freq PRN Reason Stop Dose Admin Acetaminophen 650 mg 07/27/20 22:23 08/05/20 04:29 Acetaminophen 325 Mg Tablet PO 650 mg Q6H PRN Administration Pain, Mild (Pain Scale 1-3) Amlodipine Besylate 10 mg 07/28/20 09:00 08/06/20 09:17 Amlodipine Besylate 5 Mg Tablet PO Not Given DAILY [facility] Protocol Amoxicillin/Clavulanate Potassium 500 mg 08/04/20 11:30 08/06/20 10:51 Amoxicillin/Potassium Clav 500 Mg Tablet PO 500 mg Q12H RAUL Administration Artificial Tears 2 drop 07/29/20 13:00 08/06/20 13:25 Artificial Tears 15 Ml Drops EYE-LEFT 2 drop QID RAUL Administration Ascorbic Acid 250 mg 07/28/20 09:00 08/06/20 08:59 Ascorbic Acid 250 Mg Tablet PO 250 mg BID RAUL Administration Aspirin 81 mg 07/28/20 09:00 08/06/20 08:59 Aspirin Enteric Coated 81 Mg Tablet. PO 81 mg DAILY RAUL Administration Atorvastatin Calcium 80 mg 07/27/20 22:23 08/05/20 20:06 Atorvastatin Calcium 80 Mg Tablet PO Not Given BEDTIME RAUL Atropine Sulfate 1 drop 07/27/20 22:23 08/06/20 15:00 Atropine Sulfate 1 % Ophth Jacki 2 Ml Bottle EYE-LEFT 1 drop TID [facility] Administration Bumetanide 0.5 mg 07/27/20 22:23 08/05/20 09:57 Bumetanide 1 Mg Tablet PO Not Given BID [facility] Protocol Calcitriol 0.25 mcg 07/28/20 09:00 08/06/20 08:59 Calcitriol 0.25 Mcg Capsule PO 0.25 mcg DAILY [facility] Administration Cyanocobalamin 1,000 mcg 08/15/20 09:00 Cyanocobalamin (Vitamin B-12) 1,000 Mcg/Ml Vial IM Q28D [facility] Docusate Sodium 100 mg 07/27/20 22:23 Docusate Sodium 100 Mg Capsule PO DAILY PRN Constipation Doxycycline Hyclate 100 mg 08/04/20 11:00 08/06/20 10:51 Doxycycline Hyclate 100 Mg Tablet PO 100 mg Q12H [facility] Administration Erythromycin 1 cm 07/29/20 13:00 08/06/20 13:25 Erythromycin Base 0.5% Oph Oin 1 Gm Tube EYE-LEFT 1 cm QID [facility] Administration Fluticasone Propionate 1 spray 07/28/20 09:00 08/06/20 08:59 Fluticasone Propionate Nasal 16 Gm [place] NOSTRIL-B 1 spray DAILY [facility] Administration Heparin Sodium (Porcine) 5,000 unit 07/29/20 17:00 08/06/20 06:02 Heparin Sodium,Porcine 5,000 Unit/Ml Vial SUBCUT Not Given Q12H [facility] Hydralazine HCl 10 mg 08/03/20 16:52 08/04/20 21:02 Hydralazine Hcl 20 Mg/Ml Vial IVPUSH 10 mg Q6H PRN Administration SBP > 160 Protocol Sodium Chloride 1,000 mls @ 80 mls/hr 08/06/20 15:45 Ns IVCONT .[id number] [facility] Insulin Human Lispro 0 unit 07/28/20 07:30 08/06/20 11:07 Insulin Lispro 100 Unit/Ml 3 Ml Vial SUBCUT Not Given QIDACHS [facility] Protocol Loratadine 10 mg 07/28/20 09:00 08/06/20 09:18 Loratadine 10 Mg Tablet PO Not Given DAILY [facility] Metoprolol Tartrate 50 mg 07/27/20 22:23 08/06/20 09:18 Metoprolol Tartrate 50 Mg Tablet PO Not Given BID [facility] Protocol Non-Formulary Medication 1 drop 07/28/20 09:00 Timolol Maleate EYE-RIGHT DAILY [facility] Omeprazole 20 mg 07/28/20 06:30 08/06/20 06:02 Omeprazole 20 Mg Capsule.Dr PO Not Given DAILY@0630 [facility] Ondansetron HCl 4 mg 07/27/20 22:23 08/04/20 22:59 Ondansetron Hcl 4 Mg/2 Ml Vial IVPUSH 4 mg Q8H PRN Administration Nausea and Vomiting Oxycodone HCl 2.5 mg 08/06/20 11:10 Oxycodone Hcl Immed Release 5 Mg Tablet PO Q6H PRN Pain, Moderate (Pain Scale 4-6 Pharmacy Consult 1 each 07/27/20 16:25 Consult Rx Perform Med Rec MISCELLANE ONCE PRN Consult order Polyethylene Glycol 17 gm 07/28/20 09:00 08/06/20 09:18 Polyethylene Glycol 3350 17 Gm Powd.Pack PO Not Given DAILY [facility] Sevelamer Carbonate 800 mg 07/28/20 17:00 08/06/20 10:57 Sevelamer Carbonate Tablet 800 Mg Tablet PO Not Given TIDWM [facility] Sodium Chloride 3 ml 07/28/20 00:00 08/06/20 15:00 0.9 % Sodium Chloride Flush 3 Ml Syringe IVFLUSH 3 ml QSHIFT [facility] Administration Vitamin D 50 mcg 07/28/20 09:00 08/06/20 08:59 Cholecalciferol (Vitamin D3) 25 Mcg Tablet PO 50 mcg DAILY [facility] Administration Labs CBC & Chem 7: 08/05/20 06:00 08/06/20 11:33 Labs: Laboratory Results - last 24 hr 08/05/20 08/05/20 08/06/20 16:03 19:57 06:59 Sodium Potassium Chloride Carbon Dioxide Anion Gap BUN Creatinine Estim Creat Clear Calc Estimated GFR POC Glucose 146 H 187 H 152 H Random Glucose Calcium 08/06/20 08/06/20 10:48 11:33 Sodium 136 Potassium 4.6 Chloride 109 H Carbon Dioxide 20 L Anion Gap 12 BUN 56 H Creatinine 3.71 H Estim Creat Clear Calc 12.1 Estimated GFR 12 POC Glucose 166 H Random Glucose 176 H Calcium 8.0 L Quality Stroke Does the patient have a stroke diagnosis?: No VTE Prior VTE?: No VTE Risk Level:: Medical - moderate - high VTE Device Contraindication: N/A - Device Ordered VTE Drug Contraindication: Treatment Not Indicated Assessment and Plan (1) Acute kidney injury: Status: Acute (2) Diabetes: Status: Acute (3) Abnormal myocardial perfusion study: Status: Acute (4) PAD (peripheral artery disease): Status: Acute (5) Normocytic anemia: Status: Acute (6) Osteomyelitis of great toe of right foot: Status: Acute (7) Osteomyelitis of great toe of right foot: Status: Acute Assessment and Plan: 75yo F with DM2, HTN, PAD, abnormal stress test back in April sent in from [facility] with nonhealing gangrenous R great toe # acute osteomyelitis R great toe with gangrene with PAD (R iliac artery occlusion) stable pain control - previously treated at last admission in April with long-term IV ertapenem, s/p IV vanco + pip/anny x 7 days s/p fem-fem bypass and right great toe amputation pod #3 , dressing change on Friday by vascular surgeon continue ASA, atorvastatin, and metoprolol, will DC by mouth Augmentin and doxy # 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 status post Epogen 07/30 # severe constipation - continue bowel regimen # B12 deficiency - on IM repletion monthly # HTN - BP stable today, strongly recommend to take current blood pressure medications amlodipine + metoprolol # L eye blepharitis - improving with erythromycin ointment, artificial tears # DM2 - correction-dose lispro; well-controlled, A1c only 6.2 # VTE ppx - UFH # dispo - pt came [facility] but would like to change to [facility]; CM working on this possible discharge early next week
[2020-08-06 16:18] LABS: Glucose, Whole Blood 180 mg/dL (60-115)
[2020-08-06] MEDS: Heparin Sodium,Porcine 5,000 UNIT/ML VIAL 5000 UNIT SUBCUT (16:45)
[2020-08-06] MEDS: 0.9 % Sodium Chloride 1,000 ML 80 ML IVCONT (16:46)
[2020-08-06 20:15] LABS: Glucose Urine UA NEG (NEG); Leukocyte Esterase Urine 1+ (NEG); Nitrite Urine NEG (NEG); Specific Gravity - Urine 1.025 (1.005-1.025); UACC Culture Trigger YES; Urine Blood NEG (NEG); Urine Ketones NEG (NEG); Urine Protein 2+ MG/DL (NEG-TRACE)
[2020-08-06 20:21] LABS: Appearance Urine HAZY; Color Urine YELLOW
[2020-08-06 20:28] LABS: RBC Urine 0 /HPF (0); Renal Epithelial Cells Urine TRACE /LPF; Squamous Epithelial Cell Urine 1+ /LPF
[2020-08-06 20:32] LABS: Creatinine Urine 174.53 mg/dL; Protein/Creatinine Ratio, Ur 0.58 (<0.2); Total Protein Urine Random 102 mg/dL (<12)
[2020-08-06 20:52] LABS: Glucose, Whole Blood 160 mg/dL (60-115)
[2020-08-06] MEDS: oxyCODONE HCl Immed Release 5 MG TABLET 2.5 MG PO (21:25)
[2020-08-07 03:06] VITALS: BP 151/68; PULSE 90; RESP 18; TEMP 36.9; O2SAT 93
[2020-08-07] MEDS: 0.9 % Sodium Chloride 1,000 ML 80 ML IVCONT (05:01)
[2020-08-07 06:58] LABS: Hematocrit 21.8 % (37-47); Mean Corpuscular HGB Conc 31.2 g/dl (31.0-35.0); Mean Corpuscular Volume 89.7 fL (80-98); Mean Platelet Volume 9.9 fL (9.4-12.3); Platelet Count 215 X10*3/uL (160-400); Red Blood Count 2.43 X10*6/uL (4.20-5.50); Red Cell Distribution Width 15.9 % (11.0-16.0); White Blood Count 12.1 X10*3/uL (4.8-10.8)
[2020-08-07 07:18] LABS: Anion Gap 8 (12-20); Blood Urea Nitrogen 54 mg/dL (9-16); Calcium 7.6 mg/dL (8.4-10.2); Carbon Dioxide 20 mmol/L (22-29); Chloride 112 mmol/L (96-108); Creatinine Clr Calc Pharmacy 13.3; Estimated Glomerular Filt Rate 13; Glucose Random 108 mg/dL (60-115); Potassium 4.3 mmol/L (3.3-5.1); Sodium 136 mmol/L (135-145)
[2020-08-07 07:39] LABS: Glucose, Whole Blood 104 mg/dL (60-115)
[2020-08-07 07:45] LABS: Hemoglobin 6.8 g/dl (12.0-16.0)
[2020-08-07 08:00] VITALS: BP 159/68; PULSE 90; RESP 20; TEMP 37.3; O2SAT 94
--- NOTE | 2020-08-07 08:20 | P.PNNP_ITS ---
Subjective Subjective Date of Service: 08/07/20 Interval history: awake alert answering questions appropriately, denies acute pain, by mouth intake remains low, decreased urinary output, denies fever chills, no other acute issues overnight. 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 CVS no chest pain, no palpitation GI no nausea, no vomiting Physical Exam Vital Signs: Vital Signs: Last Vital Signs Temp 99.1 F 08/07/20 08:00 Pulse 90 08/07/20 08:00 Resp 20 08/07/20 08:00 BP 159/68 H 08/07/20 08:00 Pulse Ox 94 08/07/20 08:00 Body Mass Index 23.1 Const: General: cooperative, healthy appearing, comfortable, no acute distress, alert and awake Nutritional Appearance: average body habitus Orientation/consciousness: oriented to person, oriented to place, oriented to time and patient oriented x3 Limitations: no limitations and No language barrier HENMT: Other: Unremarkable Head: Yes normal to inspection Ears: hearing grossly normal bilaterally General nose exam: Normal external nose present Face and sinus: Yes normal facial exam Mouth: Normal oral and palatal mucosa present Throat: Yes posterior oropharynx normal Eyes: Other: 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 eyes, scabbing under the left lower eyelid General: appearance normal, both eyes and all related structures Sclerae: sclerae normal Pupils: Equal, round and reactive pupils present EOM: EOMs intact bilaterally Neck: Neck: Yes normal visual inspection, Yes no lymphadenopathy, Yes trachea midline and Yes supple Carotids: no bruits Chest: Chest palpation & inspection: normal inspection of the chest Resp: Effort & Inspection: normal respiratory effort, able to speak in complete sentences, no respiratory distress, no stridor and not tachypneic Auscultation: clear to auscultation bilaterally, no crackles, no rales, no rhonchi and no wheezes Cardio: Jugular venous distension: no JVD Palpation: normal PMI Rate: regular rate Rhythm: regular rhythm Heart sounds: S1 normal heart sound present, S2 normal heart sound present, no gallops, no murmurs and no rubs Bruits: no carotid bruits Peripheral pulses: Peripheral pulses 2+ throughout, posterior tibial pulses present (Right biphasic signal) and dorsalis pedis present (Right side DP signal) on the right (Right side DP signal) GI: Inspection: Yes normal to inspection Palpation (GI): Soft to palpation, nontender and Other GI palpation findings present ( Nontender) Auscultation: normal bowel sounds Back/Spine/Pelvis: Other: unremarkable Thoracic/Lumbar Spine: thoracic and lumbar spine normal to inspection Skin: Other: warm, dry, no rash General skin exam: no rashes or lesions noted Wounds: amputation site (Right foot dressing clean dry intact) and wounds noted (Right great toe gangrene) Hair: normal Neuro: General: oriented to person, oriented to place, oriented to time, patient oriented x3, moves all extremities and CN's II-XI intact bilaterally Cranial nerves: Yes CN's II-XII intact bilaterally, Yes Equal, round and reactive pupils present, Yes Normal hearing present and Yes Other cranial nerve findings present Cognition (Neuro): normal cognition Speech: No Abnormal speech present Gait exam (Neuro): Normal gait present Motor exam (neuro): 5/5 motor strength present throughout Extrem: Other: right great toe necrosis General: Yes normal to inspection, Yes full ROM, Yes no clubbing, cyanosis or edema, Yes no pedal edema, No clubbing, No cyanosis, No edema and Yes pedal edema (Trace bilateral) Psych: Appearance: grossly normal and well kempt Mental Status: mental status grossly normal and other Speech and movement: Normal speech and movement present Affect: normal affect Objective Data Labs CBC & Chem 7: 08/07/20 05:46 08/07/20 05:46 Labs: Laboratory Results - last 24 hr 08/06/20 08/06/20 08/06/20 10:48 11:33 16:14 WBC RBC Hgb Hct MCV MCH MCHC RDW Plt Count MPV Absolute Nucleated RBC Nucleated RBC % (auto) Sodium 136 Potassium 4.6 Chloride 109 H Carbon Dioxide 20 L Anion Gap 12 BUN 56 H Creatinine 3.71 H Estim Creat Clear Calc 12.1 Estimated GFR 12 POC Glucose 166 H 180 H Random Glucose 176 H Calcium 8.0 L Urine Color Urine Appearance Urine pH Ur Specific Stephen Urine Protein Urine Glucose (UA) Urine Ketones Urine Blood Urine Nitrite Ur Leukocyte Esterase Urine RBC Urine WBC Ur Squamous Epith Cells Ur Renal Epithelial Cell Urine Bacteria Urine Yeast U Random Total Protein Ur Random Sodium Urine Creatinine Protein/Creatinin Ratio 08/06/20 08/06/20 08/06/20 20:31 Unknown Unknown WBC RBC Hgb Hct MCV MCH MCHC RDW Plt Count MPV Absolute Nucleated RBC Nucleated RBC % (auto) Sodium Potassium Chloride Carbon Dioxide Anion Gap BUN Creatinine Estim Creat Clear Calc Estimated GFR POC Glucose 160 H Random Glucose Calcium Urine Color YELLOW Urine Appearance HAZY Urine pH 6.0 Ur Specific Stephen 1.025 Urine Protein 2+ H Urine Glucose (UA) NEG Urine Ketones NEG Urine Blood NEG Urine Nitrite NEG Ur Leukocyte Esterase 1+ H Urine RBC 0 Urine WBC 1-4 Ur Squamous Epith Cells 1+ Ur Renal Epithelial Cell TRACE Urine Bacteria NONE Urine Yeast 2+ U Random Total Protein 102 H Ur Random Sodium 29.0 Urine Creatinine 174.53 Protein/Creatinin Ratio 0.58 H 08/07/20 08/07/20 08/07/20 05:46 05:46 07:35 WBC 12.1 H RBC 2.43 L Hgb 6.8 L* Hct 21.8 L MCV 89.7 MCH 28.0 MCHC 31.2 RDW 15.9 Plt Count 215 MPV 9.9 Absolute Nucleated RBC 0.000 Nucleated RBC % (auto) 0.0 Sodium 136 Potassium 4.3 Chloride 112 H Carbon Dioxide 20 L Anion Gap 8 L BUN 54 H Creatinine 3.35 H Estim Creat Clear Calc 13.3 Estimated GFR 13 POC Glucose 104 Random Glucose 108 D Calcium 7.6 L Urine Color Urine Appearance Urine pH Ur Specific Stephen Urine Protein Urine Glucose (UA) Urine Ketones Urine Blood Urine Nitrite Ur Leukocyte Esterase Urine RBC Urine WBC Ur Squamous Epith Cells Ur Renal Epithelial Cell Urine Bacteria Urine Yeast U Random Total Protein Ur Random Sodium Urine Creatinine Protein/Creatinin Ratio Microbiology Microbiology Results: Microbiology 08/06/20 Unknown Urine clean catch - Urine agrawal top Urine Culture - Preliminary No growth to date. 07/27/20 17:11 Blood - Venous Blood Culture - Final No growth after 5 days. 07/27/20 17:10 Blood - Venous Blood Culture - Final No growth after 5 days. Assessment & Plan Assessment and plan (1) Acute kidney injury: Status: Acute (2) Diabetes: Status: Acute (3) Abnormal myocardial perfusion study: Status: Acute (4) PAD (peripheral artery disease): Status: Acute (5) Normocytic anemia: Status: Acute (6) Osteomyelitis of great toe of right foot: Status: Acute Assessment and Plan: 75yo F with DM2, HTN, PAD, abnormal stress test back in April sent in from [facility] with nonhealing gangrenous R great toe # acute osteomyelitis R great toe with gangrene with PAD (R iliac artery occlusion) stable pain control - previously treated at last admission in April with long-term IV ertapenem, s/p IV vanco + pip/anny x 7 days s/p fem-fem bypass and right great toe amputation pod #3 , dressing change on Friday by vascular surgeon continue ASA, atorvastatin, and metoprolol, will DC by mouth Augmentin and doxy # 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 status post Epogen 07/30 # severe constipation - continue bowel regimen # B12 deficiency - on IM repletion monthly # HTN - BP stable today, strongly recommend to take current blood pressure medications amlodipine + metoprolol # L eye blepharitis - improving with erythromycin ointment, artificial tears # DM2 - correction-dose lispro; well-controlled, A1c only 6.2 # VTE ppx - UFH # dispo - pt came [facility] but would like to change to [facility]; CM working on this possible discharge early next week Time Spent With Patient Time: Total time spent is greater than 50% in coordination of care (as documented) at patient's floor/unit and/or counseling patient: Procedures Date of Service Date of Service: 08/07/20 Progress Note: Quality Stroke Does the patient have a stroke diagnosis?: No
[2020-08-07] MEDS: calcitrioL 0.25 MCG CAPSULE PO (08:24)
[2020-08-07] MEDS: Erythromycin Base 0.5% Oph Oin 1 GM TUBE 1 CM EYE-LEFT ×4 (08:24→21:44)
[2020-08-07] MEDS: Aspirin Enteric Coated 81 MG TABLET.DR PO (08:24)
[2020-08-07] MEDS: Ascorbic Acid 250 MG TABLET PO (08:24)
[2020-08-07] MEDS: Cholecalciferol (Vitamin D3) 25 MCG TABLET 50 MCG PO (08:25)
[2020-08-07] MEDS: Artificial Tears 15 ML DROPS 2 DROP EYE-LEFT ×4 (08:25→21:38)
[2020-08-07] MEDS: Atropine Sulfate 1 % Ophth Sol 2 ML BOTTLE 1 DROP EYE-LEFT ×3 (08:25→21:40)
[2020-08-07] MEDS: Fluticasone Propionate Nasal 16 GM SPRAY 1 SPRAY NOSTRIL-B (08:25)
[2020-08-07] MEDS: 0.9 % Sodium Chloride Flush 3 ML SYRINGE IVFLUSH ×3 (08:32→23:56)
[2020-08-07] MEDS: oxyCODONE HCl Immed Release 5 MG TABLET 2.5 MG PO ×2 (08:58→14:02)
[2020-08-07 10:06] VITALS: BMI 23.1
[2020-08-07 11:03] LABS: Glucose, Whole Blood 111 mg/dL (60-115)
[2020-08-07 11:25] VITALS: BP 153/70; PULSE 95; RESP 20; TEMP 37.3; O2SAT 93
--- NOTE | 2020-08-07 14:13 | HO.VASCPN ---
Subjective Subjective Date of Service: 08/07/20 Patient reports: no new complaints and feels better Interval history: pt. s/p fem-fem and great toe amp. No interval issues. Did great over the weekend. Pain well controlled. Physical Exam Vital Signs: Vital Signs: Last Vital Signs Temp 99.2 F 08/07/20 11:25 Pulse 95 08/07/20 11:25 Resp 20 08/07/20 11:25 BP 153/70 H 08/07/20 11:25 Pulse Ox 93 08/07/20 11:25 Body Mass Index 23.1 Const: General: cooperative, healthy appearing and no acute distress Orientation/consciousness: oriented to person, oriented to place and oriented to time HENMT: Head: Yes normal to inspection Neck: Carotids: no bruits Chest: Chest palpation & inspection: normal inspection of the chest Resp: Effort & Inspection: normal respiratory effort and able to speak in complete sentences Auscultation: clear to auscultation bilaterally Cardio: Rate: regular rate Heart sounds: S1 normal heart sound present and S2 normal heart sound present GI: Inspection: Yes normal to inspection Skin: General skin exam: no rashes or lesions noted Wounds: amputation site ( Healing well) Neuro: General: oriented to person, oriented to place, oriented to time and CN's II-XI intact bilaterally Extrem: General: Yes normal to inspection, Yes full ROM and Yes no clubbing, cyanosis or edema Psych: Appearance: grossly normal and well kempt Speech and movement: Normal speech and movement present Affect: normal affect Progress Note: A&P Assessment and plan (1) PAD (peripheral artery disease): Status: Acute Assessment and Plan: patient doing well status post fem-fem and toe amp. Will start to get per patient physical therapy. Ambulate as tolerated. Hopefully will be able to transfer to rehab facility within the next day or so. Fall Risk Details Current Medications: Current Medications Generic Name Dose Route Start Last Admin Trade Name Freq PRN Reason Stop Dose Admin Acetaminophen 650 mg 07/27/20 22:23 08/05/20 04:29 Acetaminophen 325 Mg Tablet PO 650 mg Q6H PRN Administration Pain, Mild (Pain Scale 1-3) Amlodipine Besylate 10 mg 07/28/20 09:00 08/07/20 08:33 Amlodipine Besylate 5 Mg Tablet PO Not Given DAILY RAUL Protocol Artificial Tears 2 drop 07/29/20 13:00 08/07/20 13:13 Artificial Tears 15 Ml Drops EYE-LEFT 2 drop QID RAUL Administration Ascorbic Acid 250 mg 07/28/20 09:00 08/07/20 08:24 Ascorbic Acid 250 Mg Tablet PO 250 mg BID RAUL Administration Aspirin 81 mg 07/28/20 09:00 08/07/20 08:24 Aspirin Enteric Coated 81 Mg Tablet.Dr PO 81 mg DAILY RAUL Administration Atorvastatin Calcium 80 mg 07/27/20 22:23 08/06/20 21:26 Atorvastatin Calcium 80 Mg Tablet PO Not Given BEDTIME RAUL Atropine Sulfate 1 drop 07/27/20 22:23 08/07/20 13:14 Atropine Sulfate 1 % Ophth Jacki 2 Ml Bottle EYE-LEFT 1 drop TID RAUL Administration Bumetanide 0.5 mg 07/27/20 22:23 08/07/20 08:34 Bumetanide 1 Mg Tablet PO Not Given BID [facility] Protocol Calcitriol 0.25 mcg 07/28/20 09:00 08/07/20 08:24 Calcitriol 0.25 Mcg Capsule PO 0.25 mcg DAILY RAUL Administration Cyanocobalamin 1,000 mcg 08/15/20 09:00 Cyanocobalamin (Vitamin B-12) 1,000 Mcg/Ml Vial IM Q28D RAUL Docusate Sodium 100 mg 07/27/20 22:23 Docusate Sodium 100 Mg Capsule PO DAILY PRN Constipation Erythromycin 1 cm 07/29/20 13:00 08/07/20 13:13 Erythromycin Base 0.5% Oph Oin 1 Gm Tube EYE-LEFT 1 cm QID RAUL Administration Fluticasone Propionate 1 spray 07/28/20 09:00 08/07/20 08:25 Fluticasone Propionate Nasal 16 Gm [place] NOSTRIL-B 1 spray DAILY RAUL Administration Heparin Sodium (Porcine) 5,000 unit 07/29/20 17:00 08/07/20 05:02 Heparin Sodium,Porcine 5,000 Unit/Ml Vial SUBCUT Not Given Q12H RAUL Hydralazine HCl 10 mg 08/03/20 16:52 08/04/20 21:02 Hydralazine Hcl 20 Mg/Ml Vial IVPUSH 10 mg Q6H PRN Administration SBP > 160 Protocol Sodium Chloride 1,000 mls @ 80 mls/hr 08/06/20 15:45 08/07/20 05:01 Ns IVCONT 80 mls/hr .[id number] RAUL Administration Insulin Human Lispro 0 unit 07/28/20 07:30 08/07/20 11:35 Insulin Lispro 100 Unit/Ml 3 Ml Vial SUBCUT Not Given QIDACHS [facility] Protocol Loratadine 10 mg 07/28/20 09:00 08/07/20 08:34 Loratadine 10 Mg Tablet PO Not Given DAILY [facility] Metoprolol Tartrate 50 mg 07/27/20 22:23 08/07/20 08:34 Metoprolol Tartrate 50 Mg Tablet PO Not Given BID [facility] Protocol Non-Formulary Medication 1 drop 07/28/20 09:00 Timolol Maleate EYE-RIGHT DAILY [facility] Omeprazole 20 mg 07/28/20 06:30 08/07/20 05:46 Omeprazole 20 Mg Capsule.Dr PO Not Given DAILY@0630 [facility] Ondansetron HCl 4 mg 07/27/20 22:23 08/04/20 22:59 Ondansetron Hcl 4 Mg/2 Ml Vial IVPUSH 4 mg Q8H PRN Administration Nausea and Vomiting Oxycodone HCl 2.5 mg 08/06/20 11:10 08/07/20 14:02 Oxycodone Hcl Immed Release 5 Mg Tablet PO 2.5 mg Q6H PRN Administration Pain, Moderate (Pain Scale 4-6 Pharmacy Consult 1 each 07/27/20 16:25 Consult Rx Perform Med Rec MISCELLANE ONCE PRN Consult order Polyethylene Glycol 17 gm 07/28/20 09:00 08/07/20 08:34 Polyethylene Glycol 3350 17 Gm Powd.Pack PO Not Given DAILY [facility] Sevelamer Carbonate 800 mg 07/28/20 17:00 08/07/20 12:21 Sevelamer Carbonate Tablet 800 Mg Tablet PO Not Given TIDWM [facility] Sodium Chloride 3 ml 07/28/20 00:00 08/07/20 08:32 0.9 % Sodium Chloride Flush 3 Ml Syringe IVFLUSH 3 ml QSHIFT [facility] Administration Vitamin D 50 mcg 07/28/20 09:00 08/07/20 08:25 Cholecalciferol (Vitamin D3) 25 Mcg Tablet PO 50 mcg DAILY RAUL Administration Time Spent With Patient Time: Total time spent is greater than 50% in coordination of care (as documented) at patient's floor/unit and/or counseling patient: Time with patient: 25 - 35 minutes Procedures Date of Service Date of Service: 08/07/20 Quality Stroke Does the patient have a stroke diagnosis?: No VTE Prior VTE?: No VTE Risk Level:: Medical - moderate - high VTE Device Contraindication: N/A - Device Ordered VTE Drug Contraindication: Treatment Not Indicated
--- NOTE | 2020-08-07 14:46 | MHC.CM.PN ---
CM MET WITH PT THIS MORNING TO DISCUSS DC PLANNING. PT INFORMED JOSEFA [facility]GUYEN [facility] DID NOT OFFER A BED. PT REPORTS SHE WANTED TO GO THERE BECAUSE SHE HEARD GOOD THINGS ABOUT THE REHAB. PT REPORTS SHE WANTS TO GO TO A SNF IN [place]. CM BROUGHT A LIST AND REVIEWED IT WITH PT. PT HAD SEVERAL SHE WANTED TAKEN OFF THE LIST AND AFTER CROSSING THOSE OUT, SHE HAD FOUR LEFT. PT REPORTED SHE COULD NOT DECIDE BECAUSE SHE DID NOT KNOW IF THEY HAD GOOD REHAB. CM OFFERED TO OBTAIN ANY REVIEWS AVAILABLE ONLINE HOWEVER PT DID NOT THINK THIS WOULD GIVE HER ENOUGH INFORMATION. PT REQUESTED CM CHECK [facility] AGAIN AND IF THEY SAID NO, CM WILL REVISIT TO REVIEW CHOICES AGAIN. [facility] AGAIN DECLINED THE REFERRAL. CM WILL REVIEW POSSIBLE STR OPTIONS WITH PT AGAIN.
[2020-08-07 15:03] VITALS: BP 140/84; PULSE 90; RESP 20; TEMP 36.7; O2SAT 96
--- NOTE | 2020-08-07 15:45 | HO.PM.IMPN ---
Subjective Subjective Date of Service: 08/07/20 Interval History: patient awake alert answering questions appropriately, minimal by mouth intake since does not like the food, no nausea no vomiting, noted to have low hematocrit. 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 ,no chills GI ASST no headache, no dizziness CVS no chest pain, no palpitation GI no nausea, no vomiting Physical Exam Vital Signs: Vital Signs: Last Vital Signs Temp 98.1 F 08/07/20 15:03 Pulse 90 08/07/20 15:03 Resp 20 08/07/20 15:03 BP 140/84 H 08/07/20 15:03 Pulse Ox 96 08/07/20 15:03 Body Mass Index 23.1 Gen: legally blind, awake alert no distress , left eyelids no erythema no scaling HEENT: sclera anicteric, moist mucus membranes Neck: supple Lungs: clear to auscultation bilaterally Heart: regular rate and rhythm, no murmurs Abd: soft, non-tender, non-distended Ext: R foot dressing in place , no drainage noted Skin: warm/well-perfused Neuro: alert and oriented x3, no focal findings Psych: appropriate affect Objective Data Current Medications Generic Name Dose Route Start Last Admin Trade Name Freq PRN Reason Stop Dose Admin Acetaminophen 650 mg 07/27/20 22:23 08/05/20 04:29 Acetaminophen 325 Mg Tablet PO 650 mg Q6H PRN Administration Pain, Mild (Pain Scale 1-3) Amlodipine Besylate 10 mg 07/28/20 09:00 08/07/20 08:33 Amlodipine Besylate 5 Mg Tablet PO Not Given DAILY [facility] Protocol Artificial Tears 2 drop 07/29/20 13:00 08/07/20 13:13 Artificial Tears 15 Ml Drops EYE-LEFT 2 drop QID RAUL Administration Ascorbic Acid 250 mg 07/28/20 09:00 08/07/20 08:24 Ascorbic Acid 250 Mg Tablet PO 250 mg BID RAUL Administration Aspirin 81 mg 07/28/20 09:00 08/07/20 08:24 Aspirin Enteric Coated 81 Mg Tablet.Dr PO 81 mg DAILY RAUL Administration Atorvastatin Calcium 80 mg 07/27/20 22:23 08/06/20 21:26 Atorvastatin Calcium 80 Mg Tablet PO Not Given BEDTIME [facility] Atropine Sulfate 1 drop 07/27/20 22:23 08/07/20 13:14 Atropine Sulfate 1 % Ophth Jacki 2 Ml Bottle EYE-LEFT 1 drop TID RAUL Administration Calcitriol 0.25 mcg 07/28/20 09:00 08/07/20 08:24 Calcitriol 0.25 Mcg Capsule PO 0.25 mcg DAILY [facility] Administration Cyanocobalamin 1,000 mcg 08/15/20 09:00 Cyanocobalamin (Vitamin B-12) 1,000 Mcg/Ml Vial IM Q28D [facility] Docusate Sodium 100 mg 07/27/20 22:23 Docusate Sodium 100 Mg Capsule PO DAILY PRN Constipation Erythromycin 1 cm 07/29/20 13:00 08/07/20 13:13 Erythromycin Base 0.5% Oph Oin 1 Gm Tube EYE-LEFT 1 cm QID [facility] Administration Fluticasone Propionate 1 spray 07/28/20 09:00 08/07/20 08:25 Fluticasone Propionate Nasal 16 Gm [place] NOSTRIL-B 1 spray DAILY RAUL Administration Heparin Sodium (Porcine) 5,000 unit 07/29/20 17:00 08/07/20 05:02 Heparin Sodium,Porcine 5,000 Unit/Ml Vial SUBCUT Not Given Q12H [facility] Hydralazine HCl 10 mg 08/03/20 16:52 08/04/20 21:02 Hydralazine Hcl 20 Mg/Ml Vial IVPUSH 10 mg Q6H PRN Administration SBP > 160 Protocol Sodium Chloride 1,000 mls @ 50 mls/hr 08/06/20 15:45 08/07/20 05:01 Ns IVCONT 80 mls/hr .Q20H RAUL Administration Insulin Human Lispro 0 unit 07/28/20 07:30 08/07/20 11:35 Insulin Lispro 100 Unit/Ml 3 Ml Vial SUBCUT Not Given QIDACHS [facility] Protocol Loratadine 10 mg 07/28/20 09:00 08/07/20 08:34 Loratadine 10 Mg Tablet PO Not Given DAILY [facility] Metoprolol Tartrate 50 mg 07/27/20 22:23 08/07/20 08:34 Metoprolol Tartrate 50 Mg Tablet PO Not Given BID [facility] Protocol Non-Formulary Medication 1 drop 07/28/20 09:00 Timolol Maleate EYE-RIGHT DAILY [facility] Omeprazole 20 mg 07/28/20 06:30 08/07/20 05:46 Omeprazole 20 Mg Capsule.Dr PO Not Given DAILY@0630 [facility] Ondansetron HCl 4 mg 07/27/20 22:23 08/04/20 22:59 Ondansetron Hcl 4 Mg/2 Ml Vial IVPUSH 4 mg Q8H PRN Administration Nausea and Vomiting Oxycodone HCl 2.5 mg 08/06/20 11:10 08/07/20 14:02 Oxycodone Hcl Immed Release 5 Mg Tablet PO 2.5 mg Q6H PRN Administration Pain, Moderate (Pain Scale 4-6 Pharmacy Consult 1 each 07/27/20 16:25 Consult Rx Perform Med Rec MISCELLANE ONCE PRN Consult order Polyethylene Glycol 17 gm 07/28/20 09:00 08/07/20 08:34 Polyethylene Glycol 3350 17 Gm Powd.Pack PO Not Given DAILY [facility] Sevelamer Carbonate 800 mg 07/28/20 17:00 08/07/20 12:21 Sevelamer Carbonate Tablet 800 Mg Tablet PO Not Given TIDWM [facility] Sodium Chloride 3 ml 07/28/20 00:00 08/07/20 15:36 0.9 % Sodium Chloride Flush 3 Ml Syringe IVFLUSH 3 ml QSHIFT [facility] Administration Vitamin D 50 mcg 07/28/20 09:00 08/07/20 08:25 Cholecalciferol (Vitamin D3) 25 Mcg Tablet PO 50 mcg DAILY [facility] Administration Labs CBC & Chem 7: 08/07/20 05:46 08/07/20 05:46 Labs: Laboratory Results - last 24 hr 08/06/20 08/06/20 08/06/20 16:14 20:31 Unknown WBC RBC Hgb Hct MCV MCH MCHC RDW Plt Count MPV Absolute Nucleated RBC Nucleated RBC % (auto) Sodium Potassium Chloride Carbon Dioxide Anion Gap BUN Creatinine Estim Creat Clear Calc Estimated GFR POC Glucose 180 H 160 H Random Glucose Calcium Urine Color Urine Appearance Urine pH Ur Specific [place] Urine Protein Urine Glucose (UA) Urine Ketones Urine Blood Urine Nitrite Ur Leukocyte Esterase Urine RBC Urine WBC Ur Squamous Epith Cells Ur Renal Epithelial Cell Urine Bacteria Urine Yeast U Random Total Protein 102 H Ur Random Sodium 29.0 Urine Creatinine 174.53 Protein/Creatinin Ratio 0.58 H 08/06/20 08/07/20 08/07/20 Unknown 05:46 05:46 WBC 12.1 H RBC 2.43 L Hgb 6.8 L* Hct 21.8 L MCV 89.7 MCH 28.0 MCHC 31.2 RDW 15.9 Plt Count 215 MPV 9.9 Absolute Nucleated RBC 0.000 Nucleated RBC % (auto) 0.0 Sodium 136 Potassium 4.3 Chloride 112 H Carbon Dioxide 20 L Anion Gap 8 L BUN 54 H Creatinine 3.35 H Estim Creat Clear Calc 13.3 Estimated GFR 13 POC Glucose Random Glucose 108 D Calcium 7.6 L Urine Color YELLOW Urine Appearance HAZY Urine pH 6.0 Ur Specific [place] 1.025 Urine Protein 2+ H Urine Glucose (UA) NEG Urine Ketones NEG Urine Blood NEG Urine Nitrite NEG Ur Leukocyte Esterase 1+ H Urine RBC 0 Urine WBC 1-4 Ur Squamous Epith Cells 1+ Ur Renal Epithelial Cell TRACE Urine Bacteria NONE Urine Yeast 2+ U Random Total Protein Ur Random Sodium Urine Creatinine Protein/Creatinin Ratio 08/07/20 08/07/20 07:35 10:51 WBC RBC Hgb Hct MCV MCH MCHC RDW Plt Count MPV Absolute Nucleated RBC Nucleated RBC % (auto) Sodium Potassium Chloride Carbon Dioxide Anion Gap BUN Creatinine Estim Creat Clear Calc Estimated GFR POC Glucose 104 111 Random Glucose Calcium Urine Color Urine Appearance Urine pH Ur Specific [place] Urine Protein Urine Glucose (UA) Urine Ketones Urine Blood Urine Nitrite Ur Leukocyte Esterase Urine RBC Urine WBC Ur Squamous Epith Cells Ur Renal Epithelial Cell Urine Bacteria Urine Yeast U Random Total Protein Ur Random Sodium Urine Creatinine Protein/Creatinin Ratio Microbiology Microbiology Results: Microbiology 08/06/20 Unknown Urine Culture - Preliminary Urine clean catch - Urine agrawal top No growth to date. Quality Stroke Does the patient have a stroke diagnosis?: No VTE Prior VTE?: No VTE Risk Level:: Medical - moderate - high VTE Device Contraindication: N/A - Device Ordered VTE Drug Contraindication: Treatment Not Indicated Assessment and Plan (1) Osteomyelitis of great toe of right foot: Status: Acute (2) Normocytic anemia: Status: Acute (3) Acute kidney injury: Status: Acute (4) Diabetes: Status: Acute (5) PAD (peripheral artery disease): Status: Acute Assessment and Plan: 75yo F with DM2, HTN, PAD, abnormal stress test back in April sent in from [facility] with nonhealing gangrenous R great toe # acute osteomyelitis R great toe with gangrene with PAD (R iliac artery occlusion) stable pain control, continue low-dose oxycodone - previously treated at last admission in April with long-term IV ertapenem, s/p IV vanco + pip/anny x 7 days s/p fem-fem bypass and right great toe amputation pod #4 , dressing change today by Dr. 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 # normocytic anemia - Acute drop in hematocrit likely dilutional and has anemia of chronic disease with underlying infection and renal disease patient declined blood transfusion, will give Procrit, follow CBC closely # severe constipation - continue bowel regimen # B12 deficiency - on IM repletion monthly # HTN - BP stable today, strongly recommend to take current blood pressure medications amlodipine + metoprolol # L eye blepharitis - improving with erythromycin ointment, and artificial tears # DM2 - correction-dose lispro; well-controlled, A1c only 6.2, at home takes glipizide 5 mg daily, will resume oral hypoglycemic once by mouth intake improved # VTE ppx - UFH # dispo - pt came [facility] but would like to change to different facility, behavioral health case manager 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
[2020-08-07] MEDS: 0.9 % Sodium Chloride 1,000 ML 50 ML IVCONT (16:09)
[2020-08-07 16:13] LABS: Glucose, Whole Blood 198 mg/dL (60-115)
[2020-08-07 19:05] VITALS: BP 178/76; PULSE 90; RESP 20; TEMP 36.7; O2SAT 95
[2020-08-07 19:57] LABS: Glucose, Whole Blood 194 mg/dL (60-115)
[2020-08-07 23:09] VITALS: BP 163/74; PULSE 89; RESP 18; TEMP 36.4; O2SAT 95
[2020-08-08] VITALS (7 sets, daily range): BP systolic 152–184; BP diastolic 68–77; PULSE 84–103; RESP 16–20; TEMP 36.4–37.6; O2SAT 94–97
[2020-08-08 06:35] LABS: Hematocrit 21.3 % (37-47); Mean Corpuscular Hemoglobin 27.8 pg (27.0-33.0); Mean Corpuscular Volume 89.9 fL (80-98); Mean Platelet Volume 9.7 fL (9.4-12.3); Platelet Count 216 X10*3/uL (160-400); Red Blood Count 2.37 X10*6/uL (4.20-5.50); Red Cell Distribution Width 15.8 % (11.0-16.0); White Blood Count 9.6 X10*3/uL (4.8-10.8)
[2020-08-08 06:48] LABS: Anion Gap 10 (12-20); Blood Urea Nitrogen 48 mg/dL (9-16); Calcium 7.5 mg/dL (8.4-10.2); Carbon Dioxide 19 mmol/L (22-29); Chloride 111 mmol/L (96-108); Creatinine Clr Calc Pharmacy 15.6; Estimated Glomerular Filt Rate 16; Glucose Random 124 mg/dL (60-115); Potassium 4.4 mmol/L (3.3-5.1); Sodium 136 mmol/L (135-145)
[2020-08-08 07:33] LABS: Glucose, Whole Blood 127 mg/dL (60-115)
[2020-08-08 08:08] LABS: Hemoglobin 6.6 g/dl (12.0-16.0)
[2020-08-08] MEDS: Artificial Tears 15 ML DROPS 2 DROP EYE-LEFT ×3 (08:56→22:48)
[2020-08-08] MEDS: Atropine Sulfate 1 % Ophth Sol 2 ML BOTTLE 1 DROP EYE-LEFT ×3 (08:58→22:48)
[2020-08-08] MEDS: Erythromycin Base 0.5% Oph Oin 1 GM TUBE 1 CM EYE-LEFT ×3 (09:00→22:47)
[2020-08-08] MEDS: Fluticasone Propionate Nasal 16 GM SPRAY 1 SPRAY NOSTRIL-B (09:01)
[2020-08-08] MEDS: amLODIPine Besylate 5 MG TABLET 10 MG PO (09:03)
[2020-08-08] MEDS: Cholecalciferol (Vitamin D3) 25 MCG TABLET 50 MCG PO (09:04)
[2020-08-08] MEDS: calcitrioL 0.25 MCG CAPSULE PO (09:05)
[2020-08-08] MEDS: 0.9 % Sodium Chloride Flush 3 ML SYRINGE IVFLUSH ×2 (09:05→16:19)
[2020-08-08] MEDS: Ascorbic Acid 250 MG TABLET PO ×2 (09:05→22:47)
[2020-08-08] MEDS: Aspirin Enteric Coated 81 MG TABLET.DR PO (09:05)
--- NOTE | 2020-08-08 09:18 | PM.PNNEP ---
Subjective Subjective Date of Service: 08/08/20 Interval history: patient awake alert answering questions appropriately, minimal by mouth intake since does not like the food, no nausea no vomiting, noted to have low hematocrit. 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 ,no chills [employer] no headache, no dizziness CVS no chest pain, no palpitation GI no nausea, no vomiting Physical Exam Vital Signs: Vital Signs: Last Vital Signs Temp 97.7 F 08/08/20 07:13 Pulse 95 08/08/20 09:03 Resp 20 08/08/20 07:13 BP 152/68 H 08/08/20 09:03 Pulse Ox 95 08/08/20 07:13 Body Mass Index 23.1 Const: Nutritional Appearance: average body habitus Orientation/consciousness: oriented to person, oriented to place, oriented to time and patient oriented x3 Limitations: no limitations and No language barrier HENMT: Other: Unremarkable Head: Yes normal to inspection Ears: hearing grossly normal bilaterally General nose exam: Normal external nose present Face and sinus: Yes normal facial exam Mouth: Normal oral and palatal mucosa present Throat: Yes posterior oropharynx normal Eyes: Other: 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 eyes, scabbing under the left lower eyelid General: appearance normal, both eyes and all related structures Sclerae: sclerae normal Pupils: Equal, round and reactive pupils present EOM: EOMs intact bilaterally Neck: Neck: Yes normal visual inspection, Yes no lymphadenopathy, Yes trachea midline and Yes supple Carotids: no bruits Chest: Chest palpation & inspection: normal inspection of the chest Resp: Effort & Inspection: normal respiratory effort, able to speak in complete sentences, no respiratory distress, no stridor and not tachypneic Auscultation: clear to auscultation bilaterally, no crackles, no rales, no rhonchi and no wheezes Cardio: Jugular venous distension: no JVD Palpation: normal PMI Rate: regular rate Rhythm: regular rhythm Heart sounds: S1 normal heart sound present, S2 normal heart sound present, no gallops, no murmurs and no rubs Bruits: no carotid bruits Peripheral pulses: Peripheral pulses 2+ throughout, posterior tibial pulses present (Right biphasic signal) and dorsalis pedis present (Right side DP signal) on the right (Right side DP signal) GI: Inspection: Yes normal to inspection Palpation (GI): Soft to palpation, nontender and Other GI palpation findings present ( Nontender) Auscultation: normal bowel sounds Back/Spine/Pelvis: Other: unremarkable Thoracic/Lumbar Spine: thoracic and lumbar spine normal to inspection Skin: Other: warm, dry, no rash General skin exam: no rashes or lesions noted Wounds: amputation site ( Healing well) and wounds noted (Right great toe gangrene) Hair: normal Neuro: General: oriented to person, oriented to place, oriented to time, patient oriented x3, moves all extremities and CN's II-XI intact bilaterally Cranial nerves: Yes CN's II-XII intact bilaterally, Yes Equal, round and reactive pupils present, Yes Normal hearing present and Yes Other cranial nerve findings present Cognition (Neuro): normal cognition Speech: No Abnormal speech present Gait exam (Neuro): Normal gait present Motor exam (neuro): 5/5 motor strength present throughout Extrem: Other: right great toe necrosis General: Yes normal to inspection, Yes full ROM, Yes no clubbing, cyanosis or edema, Yes no pedal edema, No clubbing, No cyanosis, No edema and Yes pedal edema (Trace bilateral) Psych: Appearance: grossly normal and well kempt Mental Status: mental status grossly normal and other Speech and movement: Normal speech and movement present Affect: normal affect Objective Data Labs CBC & Chem 7: 08/08/20 05:35 08/08/20 05:35 Labs: Laboratory Results - last 24 hr 08/07/20 08/07/20 08/07/20 10:51 16:05 19:50 WBC RBC Hgb Hct MCV MCH MCHC RDW Plt Count MPV Absolute Nucleated RBC Nucleated RBC % (auto) Sodium Potassium Chloride Carbon Dioxide Anion Gap BUN Creatinine Estim Creat Clear Calc Estimated GFR POC Glucose 111 198 H 194 H Random Glucose Calcium 08/08/20 08/08/20 08/08/20 05:35 05:35 07:26 WBC 9.6 RBC 2.37 L Hgb 6.6 L* Hct 21.3 L MCV 89.9 MCH 27.8 MCHC 31.0 RDW 15.8 Plt Count 216 MPV 9.7 Absolute Nucleated RBC 0.000 Nucleated RBC % (auto) 0.0 Sodium 136 Potassium 4.4 Chloride 111 H Carbon Dioxide 19 L Anion Gap 10 L BUN 48 H Creatinine 2.88 H Estim Creat Clear Calc 15.6 Estimated GFR 16 POC Glucose 127 H Random Glucose 124 H Calcium 7.5 L Microbiology Microbiology Results: Microbiology 08/06/20 Unknown Urine clean catch - Urine agrawal top Urine Culture - Final 07/27/20 17:11 Blood - Venous Blood Culture - Final No growth after 5 days. 07/27/20 17:10 Blood - Venous Blood Culture - Final No growth after 5 days. Assessment & Plan Assessment and plan (1) Osteomyelitis of great toe of right foot: Status: Acute (2) Normocytic anemia: Status: Acute (3) Acute kidney injury: Status: Acute (4) Diabetes: Status: Acute (5) PAD (peripheral artery disease): Status: Acute Assessment and Plan: 75yo F with DM2, HTN, PAD, abnormal stress test back in April sent in from [facility] with nonhealing gangrenous R great toe # acute osteomyelitis R great toe with gangrene with PAD (R iliac artery occlusion) stable pain control, continue low-dose oxycodone - previously treated at last admission in April with long-term IV ertapenem, s/p IV vanco + pip/anny x 7 days s/p fem-fem bypass and right great toe amputation pod #4 , dressing change today by Dr. 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 # normocytic anemia - will check iron labs if low give IV iron # severe constipation - continue bowel regimen # B12 deficiency - on IM repletion monthly # HTN - BP stable today, strongly recommend to take current blood pressure medications amlodipine + metoprolol # L eye blepharitis - improving with erythromycin ointment, and artificial tears # DM2 - correction-dose lispro; well-controlled, A1c only 6.2, at home takes glipizide 5 mg daily, will resume oral hypoglycemic once by mouth intake improved # VTE ppx - UFH # dispo - pt came [facility] but would like to change to different facility, rn field case manager 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 Time Spent With Patient Time: Total time spent is greater than 50% in coordination of care (as documented) at patient's floor/unit and/or counseling patient: Procedures Date of Service Date of Service: 08/08/20 Progress Note: Quality Stroke Does the patient have a stroke diagnosis?: No
[2020-08-08 09:49] LABS: Iron 20 mcg/dL (30-160); Percent Iron Saturation 16 % (15-50); Total Iron Binding Capacity 126 mcg/dL (228-428); Unsaturated Iron Binding 106 ug/dL
[2020-08-08 10:02] LABS: Ferritin 304 ng/mL (10-250)
[2020-08-08 11:26] LABS: Glucose, Whole Blood 146 mg/dL (60-115)
--- NOTE | 2020-08-08 13:45 | P.PNIM_ITS ---
Subjective Subjective Date of Service: 08/08/20 Interval History: patient awake alert offers no acute complaints good pain control right foot trying to eat better still refusing blood transfusion denies symptoms of lightheadedness and dizziness. 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 CVS no chest pain, no palpitation GI no nausea, no vomiting Physical Exam Vital Signs: Vital Signs: Last Vital Signs Temp 98.0 F 08/08/20 11:32 Pulse 90 08/08/20 11:32 Resp 20 08/08/20 11:32 BP 164/70 H 08/08/20 11:32 Pulse Ox 94 08/08/20 11:32 Body Mass Index 23.1 Gen: legally blind, awake alert no distress , left eyelids no erythema no scaling HEENT: sclera anicteric, moist mucus membranes Neck: supple Lungs: clear to auscultation bilaterally Heart: regular rate and rhythm, no murmurs Abd: soft, non-tender, non-distended Ext: R foot dressing in place , no drainage noted Skin: warm/well-perfused Neuro: alert and oriented x3, no focal findings Psych: appropriate affect Objective Data Current Medications Generic Name Dose Route Start Last Admin Trade Name Freq PRN Reason Stop Dose Admin Acetaminophen 650 mg 07/27/20 22:23 08/05/20 04:29 Acetaminophen 325 Mg Tablet PO 650 mg Q6H PRN Administration Pain, Mild (Pain Scale 1-3) Amlodipine Besylate 10 mg 07/28/20 09:00 08/08/20 09:03 Amlodipine Besylate 5 Mg Tablet PO 10 mg DAILY RAUL Administration Protocol Artificial Tears 2 drop 07/29/20 13:00 08/08/20 13:25 Artificial Tears 15 Ml Drops EYE-LEFT Not Given QID RAUL Ascorbic Acid 250 mg 07/28/20 09:00 08/08/20 09:05 Ascorbic Acid 250 Mg Tablet PO 250 mg BID RAUL Administration Aspirin 81 mg 07/28/20 09:00 08/08/20 09:05 Aspirin Enteric Coated 81 Mg Tablet.Dr PO 81 mg DAILY RAUL Administration Atorvastatin Calcium 80 mg 07/27/20 22:23 08/07/20 20:32 Atorvastatin Calcium 80 Mg Tablet PO Not Given BEDTIME RAUL Atropine Sulfate 1 drop 07/27/20 22:23 08/08/20 08:58 Atropine Sulfate 1 % Ophth Jacki 2 Ml Bottle EYE-LEFT 1 drop TID RAUL Administration Calcitriol 0.25 mcg 07/28/20 09:00 08/08/20 09:05 Calcitriol 0.25 Mcg Capsule PO 0.25 mcg DAILY [facility] Administration Cyanocobalamin 1,000 mcg 08/15/20 09:00 Cyanocobalamin (Vitamin B-12) 1,000 Mcg/Ml Vial IM Q28D [facility] Docusate Sodium 100 mg 07/27/20 22:23 Docusate Sodium 100 Mg Capsule PO DAILY PRN Constipation Erythromycin 1 cm 07/29/20 13:00 08/08/20 13:25 Erythromycin Base 0.5% Oph Oin 1 Gm Tube EYE-LEFT Not Given QID [facility] Fluticasone Propionate 1 spray 07/28/20 09:00 08/08/20 09:01 Fluticasone Propionate Nasal 16 Gm [place] NOSTRIL-B 1 spray DAILY [facility] Administration Heparin Sodium (Porcine) 5,000 unit 07/29/20 17:00 08/08/20 06:08 Heparin Sodium,Porcine 5,000 Unit/Ml Vial SUBCUT Not Given Q12H [facility] Hydralazine HCl 10 mg 08/03/20 16:52 08/04/20 21:02 Hydralazine Hcl 20 Mg/Ml Vial IVPUSH 10 mg Q6H PRN Administration SBP > 160 Protocol Insulin Human Lispro 0 unit 07/28/20 07:30 08/08/20 08:48 Insulin Lispro 100 Unit/Ml 3 Ml Vial SUBCUT Not Given QIDACHS [facility] Protocol Loratadine 10 mg 07/28/20 09:00 08/08/20 08:49 Loratadine 10 Mg Tablet PO Not Given DAILY [facility] Metoprolol Tartrate 50 mg 07/27/20 22:23 08/08/20 08:50 Metoprolol Tartrate 50 Mg Tablet PO Not Given BID [facility] Protocol Omeprazole 20 mg 07/28/20 06:30 08/08/20 06:08 Omeprazole 20 Mg Capsule.Dr PO Not Given DAILY@0630 [facility] Ondansetron HCl 4 mg 07/27/20 22:23 08/04/20 22:59 Ondansetron Hcl 4 Mg/2 Ml Vial IVPUSH 4 mg Q8H PRN Administration Nausea and Vomiting Oxycodone HCl 2.5 mg 08/06/20 11:10 08/08/20 00:00 Oxycodone Hcl Immed Release 5 Mg Tablet PO 2.5 mg Q6H PRN Administration Pain, Moderate (Pain Scale 4-6 Pharmacy Consult 1 each 07/27/20 16:25 Consult Rx Perform Med Rec MISCELLANE ONCE PRN Consult order Polyethylene Glycol 17 gm 07/28/20 09:00 08/08/20 08:49 Polyethylene Glycol 3350 17 Gm Powd.Pack PO Not Given DAILY RAUL Sevelamer Carbonate 800 mg 07/28/20 17:00 08/08/20 11:20 Sevelamer Carbonate Tablet 800 Mg Tablet PO Not Given TIDWM [facility] Sodium Chloride 3 ml 07/28/20 00:00 08/08/20 09:05 0.9 % Sodium Chloride Flush 3 Ml Syringe IVFLUSH 3 ml QSHIFT [facility] Administration Vitamin D 50 mcg 07/28/20 09:00 08/08/20 09:04 Cholecalciferol (Vitamin D3) 25 Mcg Tablet PO 50 mcg DAILY RAUL Administration Labs CBC & Chem 7: 08/08/20 05:35 08/08/20 05:35 Labs: Laboratory Results - last 24 hr 08/07/20 08/07/20 08/08/20 16:05 19:50 05:35 WBC 9.6 RBC 2.37 L Hgb 6.6 L* Hct 21.3 L MCV 89.9 MCH 27.8 MCHC 31.0 RDW 15.8 Plt Count 216 MPV 9.7 Absolute Nucleated RBC 0.000 Nucleated RBC % (auto) 0.0 Sodium Potassium Chloride Carbon Dioxide Anion Gap BUN Creatinine Estim Creat Clear Calc Estimated GFR POC Glucose 198 H 194 H Random Glucose Calcium Iron TIBC % Saturation Unsat Iron Binding Ferritin 08/08/20 08/08/20 08/08/20 05:35 07:26 11:13 WBC RBC Hgb Hct MCV MCH MCHC RDW Plt Count MPV Absolute Nucleated RBC Nucleated RBC % (auto) Sodium 136 Potassium 4.4 Chloride 111 H Carbon Dioxide 19 L Anion Gap 10 L BUN 48 H Creatinine 2.88 H Estim Creat Clear Calc 15.6 Estimated GFR 16 POC Glucose 127 H 146 H Random Glucose 124 H Calcium 7.5 L Iron 20 L TIBC 126 L % Saturation 16 Unsat Iron Binding 106 Ferritin 304 H Microbiology Microbiology Results: Microbiology 08/06/20 Unknown Urine Culture - Final Urine clean catch - Urine agrawal top Quality Stroke Does the patient have a stroke diagnosis?: No VTE Prior VTE?: No VTE Risk Level:: Medical - moderate - high VTE Device Contraindication: N/A - Device Ordered VTE Drug Contraindication: Treatment Not Indicated Assessment and Plan (1) Osteomyelitis of great toe of right foot: Status: Acute (2) Normocytic anemia: Status: Acute (3) Diabetes: Status: Acute (4) Abnormal myocardial perfusion study: Status: Acute (5) PAD (peripheral artery disease): Status: Acute (6) Acute kidney injury: Status: Acute Assessment and Plan: 75yo F with DM2, HTN, PAD, abnormal stress test back in April [facility] in [facility] with nonhealing gangrenous R great toe # acute osteomyelitis R great toe with gangrene with PAD (R iliac artery occlusion) stable pain control, continue low-dose oxycodone , no fever chills, WBC normalized - previously treated at last admission in April with long-term IV ertapenem, s/p IV vanco + pip/anny x 7 days during this admission s/p fem-fem bypass and right great toe amputation pod #5 , dressing change as per Dr. Blood wound looks clean continue ASA, atorvastatin, and metoprolol, continue pain control with oxycodone. 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 will discuss renal studies with Nephrology # normocytic anemia - Acute drop in hematocrit likely dilutional and has anemia of chronic disease with underlying infection and renal disease, hematocrit further drop today to 21.3 patient is adamant that she will not take blood transfusion, but if hematocrit remains low tomorrow she said she will take it, continue Procrit and follow CBC # severe constipation - continue bowel regimen # B12 deficiency - on IM repletion monthly # HTN - BP stable today, strongly recommend to take current blood pressure medic ations amlodipine + metoprolol # L eye blepharitis - improving with erythromycin ointment, and artificial tears # DM2 - correction-dose lispro; well-controlled, A1c only 6.2, at home takes glipizide 5 mg daily, will resume oral hypoglycemic once by mouth intake improved # VTE ppx - UFH # dispo - pt came from [facility] but would like to change to different facility, pillowcase turner 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
--- NOTE | 2020-08-08 15:40 | PC.NURSE ---
Skin/wound assessment completed today. Patient has bilateral groin incisions from fem to fem, amputation site of right great toe-sutures in place and xeroform over sutures, wrapped in gauze. Blanchable redness to buttocks.
--- NOTE | 2020-08-08 15:48 | PC.NURSE ---
Skin/wound assessment completed today. Bliateral groin incisions from fem to fem bypass, right great toe amputation site-sutures intact, covered with xeroform and wrapped in gauze, stage 2 PU to left buttocks and coccyx, epc cream and foam.
[2020-08-08 16:01] LABS: Glucose, Whole Blood 177 mg/dL (60-115)
[2020-08-08] MEDS: oxyCODONE HCl Immed Release 5 MG TABLET 2.5 MG PO ×2 (18:09)
[2020-08-08 20:10] LABS: Glucose, Whole Blood 176 mg/dL (60-115)
[2020-08-09] VITALS (12 sets, daily range): BP systolic 136–185; BP diastolic 67–82; PULSE 80–95; RESP 14–20; TEMP 36–37.8; O2SAT 95–98
[2020-08-09] MEDS: oxyCODONE HCl Immed Release 5 MG TABLET 2.5 MG PO ×2 (01:11→06:39)
[2020-08-09] MEDS: Acetaminophen 325 MG TABLET 650 MG PO (06:37)
[2020-08-09 07:24] LABS: Glucose, Whole Blood 130 mg/dL (60-115)
[2020-08-09] MEDS: amLODIPine Besylate 5 MG TABLET 10 MG PO (08:31)
[2020-08-09] MEDS: Aspirin Enteric Coated 81 MG TABLET.DR PO (08:31)
[2020-08-09] MEDS: calcitrioL 0.25 MCG CAPSULE PO (08:32)
[2020-08-09] MEDS: Cholecalciferol (Vitamin D3) 25 MCG TABLET 50 MCG PO (08:32)
[2020-08-09] MEDS: Ascorbic Acid 250 MG TABLET PO ×2 (08:33→20:31)
[2020-08-09] MEDS: 0.9 % Sodium Chloride Flush 3 ML SYRINGE IVFLUSH ×2 (08:35→16:12)
[2020-08-09] MEDS: Artificial Tears 15 ML DROPS 2 DROP EYE-LEFT ×3 (08:36→20:27)
[2020-08-09] MEDS: Atropine Sulfate 1 % Ophth Sol 2 ML BOTTLE 1 DROP EYE-LEFT ×3 (08:36→20:29)
[2020-08-09] MEDS: Erythromycin Base 0.5% Oph Oin 1 GM TUBE 1 CM EYE-LEFT (08:37)
[2020-08-09] MEDS: Fluticasone Propionate Nasal 16 GM SPRAY 1 SPRAY NOSTRIL-B (08:37)
--- NOTE | 2020-08-09 10:03 | MHC.CM.PN ---
Addendum entered by Cynthia Coello 08/09/20 12:09: [facility] B[facility]. PT LIKELY TO DC EARLY TOMORROW AND WILL NEED BLS TRANSPORT Original Note: CM MET WITH PT THIS MORNING TO DISCUSS STR CHOICES. CM INFORMED HER THE ONLY SNF IN THE AREA SHE REQUESTED THAT WAS ABLE TO OFFER A BED WAS [facility]. PT REPORTS SHE NEEDS TO KNOW IF THEY HAVE TREADMILLS AND STATIONARY BIKES, CM INFORMED HER MOST SHORT TERM REHABS DID NOT HAVE THIS EQUIPMENT HOWEVER ONCE SHE COMPLETED STR, SHE COULD BE REFERRED TO OUTPATIENT PT WHERE THESE THINGS ARE USED ON A REGULAR BASIS. PT STILL NOT AGREEING TO FACILITIES THAT ARE OFFERING AND AGAIN ASKS CM TO CHECK AVAILABILITY AT [facility]. CM EXPLAINED THEY HAVE BEEN CONTACTED MULTIPLE TIMES AND THEY ARE NOT OFFERING A BED. AFTER SOME DISCUSSION, PT AGREED TO A REFERRAL TO [facility]. REFERRAL SENT, CURRENTLY AWAITING RESPONSE. PT IS EXPECTED TO BE MEDICALLY CLEARED TODAY AND DC PENDING STR BED
--- NOTE | 2020-08-09 10:25 | P.PNNP_ITS ---
Subjective Subjective Date of Service: 08/09/20 Interval history: patient awake alert offers no acute complaints good pain control right foot trying to eat better still refusing blood transfusion denies symptoms of lightheadedness and dizziness. 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 CVS no chest pain, no palpitation GI no nausea, no vomiting Physical Exam Vital Signs: Vital Signs: Last Vital Signs Temp 97 F 08/09/20 07:16 Pulse 88 08/09/20 08:31 Resp 20 08/09/20 07:16 BP 159/68 H 08/09/20 08:31 Pulse Ox 96 08/09/20 07:16 Body Mass Index 23.1 Const: General: cooperative, healthy appearing, comfortable, no acute distres s, alert and awake Nutritional Appearance: average body habitus Orientation/consciousness: oriented to person, oriented to place, oriented to time and patient oriented x3 Limitations: no limitations and No language barrier HENMT: Other: Unremarkable Head: Yes normal to inspection Ears: hearing grossly normal bilaterally General nose exam: Normal external nose present Face and sinus: Yes normal facial exam Mouth: Normal oral and palatal mucosa present Throat: Yes posterior oropharynx normal Eyes: Other: 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 eyes, scabbing under the left lower eyelid General: appearance normal, both eyes and all related structures Sclerae: sclerae normal Pupils: Equal, round and reactive pupils present EOM: EOMs intact bilaterally Neck: Neck: Yes normal visual inspection, Yes no lymphadenopathy, Yes trachea midline and Yes supple Carotids: no bruits Chest: Chest palpation & inspection: normal inspection of the chest Resp: Effort & Inspection: normal respiratory effort, able to speak in complete sentences, no respiratory distress, no stridor and not tachypneic Auscultation: clear to auscultation bilaterally, no crackles, no rales, no rhonchi and no wheezes Cardio: Jugular venous distension: no JVD Palpation: normal PMI Rate: regular rate Rhythm: regular rhythm Heart sounds: S1 normal heart sound present, S2 normal heart sound present, no gallops, no murmurs and no rubs Bruits: no carotid bruits Peripheral pulses: Peripheral pulses 2+ throughout, posterior tibial pulses present (Right biphasic signal) and dorsalis pedis present (Right side DP signal) on the right (Right side DP signal) GI: Inspection: Yes normal to inspection Palpation (GI): Soft to palpation, nontender and Other GI palpation findings present ( Nontender) Auscultation: normal bowel sounds Back/Spine/Pelvis: Other: unremarkable Thoracic/Lumbar Spine: thoracic and lumbar spine normal to inspection Skin: Other: warm, dry, no rash General skin exam: no rashes or lesions noted Wounds: amputation site ( Healing well) and wounds noted (Right great toe gangrene) Hair: normal Neuro: General: oriented to person, oriented to place, oriented to time, patient oriented x3, moves all extremities and CN's II-XI intact bilaterally Cranial nerves: Yes CN's II-XII intact bilaterally, Yes Equal, round and reactive pupils present, Yes Normal hearing present and Yes Other cranial nerve findings present Cognition (Neuro): normal cognition Speech: No Abnormal speech present Gait exam (Neuro): Normal gait present Motor exam (neuro): 5/5 motor strength present throughout Extrem: Other: right great toe necrosis General: Yes normal to inspection, Yes full ROM, Yes no clubbing, cyanosis or edema, Yes no pedal edema, No clubbing, No cyanosis, No edema and Yes pedal edema (Trace bilateral) Psych: Appearance: grossly normal and well kempt Mental Status: mental status grossly normal and other Speech and movement: Normal speech and movement present Affect: normal affect Objective Data Labs CBC & Chem 7: 08/08/20 05:35 08/08/20 05:35 Labs: Laboratory Results - last 24 hr 08/08/20 08/08/20 08/08/20 11:13 15:52 20:02 POC Glucose 146 H 177 H 176 H 08/09/20 07:16 POC Glucose 130 H Microbiology Microbiology Results: Microbiology 08/06/20 Unknown Urine clean catch - Urine agrawal top Urine Culture - Final 07/27/20 17:11 Blood - Venous Blood Culture - Final No growth after 5 days. 07/27/20 17:10 Blood - Venous Blood Culture - Final No growth after 5 days. Assessment & Plan Assessment and plan (1) Osteomyelitis of great toe of right foot: Status: Acute (2) Normocytic anemia: Status: Acute (3) Diabetes: Status: Acute (4) Abnormal myocardial perfusion study: Status: Acute (5) PAD (peripheral artery disease): Status: Acute (6) Acute kidney injury: Status: Acute Assessment and Plan: 75yo F with DM2, HTN, PAD, abnormal stress test back in April sent in from [facility] with nonhealing gangrenous R great toe # acute osteomyelitis R great toe with gangrene with PAD (R iliac artery occlusion) stable pain control, continue low-dose oxycodone , no fever chills, WBC normalized - previously treated at last admission in April with long-term IV ertapenem, s/p IV vanco + pip/anny x 7 days during this admission s/p fem-fem bypass and right great toe amputation pod #5 , dressing change as per Dr. Blood wound looks clean continue ASA, atorvastatin, and metoprolol, continue pain control with oxycod one. 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
--- NOTE | 2020-08-09 10:29 | HO.VASCPN ---
Subjective Subjective Date of Service: 08/09/20 Patient reports: no new complaints and feels better Interval history: Patient seen and examined. No events overnight. Pain seems fairly well controlled. Apparently she has refused blood for the past 2 days in addition she refused a blood draw this morning. Remains relatively asymptomatic from that as well. Physical Exam Vital Signs: Vital Signs: Last Vital Signs Temp 97 F 08/09/20 07:16 Pulse 88 08/09/20 08:31 Resp 20 08/09/20 07:16 BP 159/68 H 08/09/20 08:31 Pulse Ox 96 08/09/20 07:16 Body Mass Index 23.1 Const: General: cooperative, healthy appearing and no acute distress Orientation/consciousness: oriented to person, oriented to place and oriented to time HENMT: Head: Yes normal to inspection Neck: Carotids: no bruits Chest: Chest palpation & inspection: normal inspection of the chest Resp: Effort & Inspection: normal respiratory effort and able to speak in complete sentences Auscultation: clear to auscultation bilaterally Cardio: Rate: regular rate Heart sounds: S1 normal heart sound present and S2 normal heart sound present GI: Inspection: Yes normal to inspection Skin: General skin exam: no rashes or lesions noted Wounds: amputation site ( Healing well) Neuro: General: oriented to person, oriented to place, oriented to time and CN's II-XI intact bilaterally Extrem: General: Yes normal to inspection, Yes full ROM and Yes no clubbing, cyanosis or edema Psych: Appearance: grossly normal and well kempt Speech and movement: Normal speech and movement present Affect: normal affect Progress Note: A&P Assessment and plan (1) PAD (peripheral artery disease): Status: Acute Assessment and Plan: status post fem-fem bypass. Toe amp site looks like it is doing fairly well. I did take an opportunity to discuss with her the importance of maintaining adequate hemoglobin. There is a risk of graft thrombosis. She did demonstrated understanding of this. She continues to be difficult with staff and hospitalist team. Will try to readdress tomorrow. Thank you for allowing us to assist in her care. Fall Risk Details Current Medications: Current Medications Generic Name Dose Route Start Last Admin Trade Name Freq PRN Reason Stop Dose Admin Acetaminophen 650 mg 07/27/20 22:23 08/09/20 06:37 Acetaminophen 325 Mg Tablet PO 650 mg Q6H PRN Administration Pain, Mild (Pain Scale 1-3) Amlodipine Besylate 10 mg 07/28/20 09:00 08/09/20 08:31 Amlodipine Besylate 5 Mg Tablet PO 10 mg DAILY RAUL Administration Protocol Artificial Tears 2 drop 07/29/20 13:00 08/09/20 08:36 Artificial Tears 15 Ml Drops EYE-LEFT 2 drop QID RAUL Administration Ascorbic Acid 250 mg 07/28/20 09:00 08/09/20 08:33 Ascorbic Acid 250 Mg Tablet PO 250 mg BID RAUL Administration Aspirin 81 mg 07/28/20 09:00 08/09/20 08:31 Aspirin Enteric Coated 81 Mg Tablet.Dr PO 81 mg DAILY RAUL Administration Atorvastatin Calcium 80 mg 07/27/20 22:23 08/08/20 22:49 Atorvastatin Calcium 80 Mg Tablet PO Not Given BEDTIME [facility] Atropine Sulfate 1 drop 07/27/20 22:23 08/09/20 08:36 Atropine Sulfate 1 % Ophth Jacki 2 Ml Bottle EYE-LEFT 1 drop TID RAUL Administration Calcitriol 0.25 mcg 07/28/20 09:00 08/09/20 08:32 Calcitriol 0.25 Mcg Capsule PO 0.25 mcg DAILY RAUL Administration Cyanocobalamin 1,000 mcg 08/15/20 09:00 Cyanocobalamin (Vitamin B-12) 1,000 Mcg/Ml Vial IM Q28D [facility] Docusate Sodium 100 mg 07/27/20 22:23 Docusate Sodium 100 Mg Capsule PO DAILY PRN Constipation Erythromycin 1 cm 07/29/20 13:00 08/09/20 08:37 Erythromycin Base 0.5% Oph Oin 1 Gm Tube EYE-LEFT 1 cm QID [facility] Administration Fluticasone Propionate 1 spray 07/28/20 09:00 08/09/20 08:37 Fluticasone Propionate Nasal 16 Gm [place] NOSTRIL-B 1 spray DAILY [facility] Administration Heparin Sodium (Porcine) 5,000 unit 07/29/20 17:00 08/09/20 06:44 Heparin Sodium,Porcine 5,000 Unit/Ml Vial SUBCUT Not Given Q12H [facility] Hydralazine HCl 10 mg 08/03/20 16:52 08/04/20 21:02 Hydralazine Hcl 20 Mg/Ml Vial IVPUSH 10 mg Q6H PRN Administration SBP > 160 Protocol Insulin Human Lispro 0 unit 07/28/20 07:30 08/09/20 06:42 Insulin Lispro 100 Unit/Ml 3 Ml Vial SUBCUT Not Given QIDACHS [facility] Protocol Loratadine 10 mg 07/28/20 09:00 08/09/20 06:43 Loratadine 10 Mg Tablet PO Not Given DAILY [facility] Metoprolol Tartrate 50 mg 07/27/20 22:23 08/09/20 06:43 Metoprolol Tartrate 50 Mg Tablet PO Not Given BID [facility] Protocol Omeprazole 20 mg 07/28/20 06:30 08/09/20 05:15 Omeprazole 20 Mg Capsule.Dr PO Not Given DAILY@0630 [facility] Ondansetron HCl 4 mg 07/27/20 22:23 08/04/20 22:59 Ondansetron Hcl 4 Mg/2 Ml Vial IVPUSH 4 mg Q8H PRN Administration Nausea and Vomiting Oxycodone HCl 2.5 mg 08/06/20 11:10 08/09/20 06:39 Oxycodone Hcl Immed Release 5 Mg Tablet PO 2.5 mg Q6H PRN Administration Pain, Moderate (Pain Scale 4-6 Pharmacy Consult 1 each 07/27/20 16:25 Consult Rx Perform Med Rec MISCELLANE ONCE PRN Consult order Polyethylene Glycol 17 gm 07/28/20 09:00 08/09/20 06:43 Polyethylene Glycol 3350 17 Gm Powd.Pack PO Not Given DAILY [facility] Sevelamer Carbonate 800 mg 07/28/20 17:00 08/09/20 06:43 Sevelamer Carbonate Tablet 800 Mg Tablet PO Not Given TIDWM [facility] Sodium Chloride 3 ml 07/28/20 00:00 08/09/20 08:35 0.9 % Sodium Chloride Flush 3 Ml Syringe IVFLUSH 3 ml QSHIFT [facility] Administration Vitamin D 50 mcg 07/28/20 09:00 08/09/20 08:32 Cholecalciferol (Vitamin D3) 25 Mcg Tablet PO 50 mcg DAILY [facility] Administration Time Spent With Patient Time: Total time spent is greater than 50% in coordination of care (as documented) at patient's floor/unit and/or counseling patient: Time with patient: 25 - 35 minutes Procedures Date of Service Date of Service: 08/09/20 Quality Stroke Does the patient have a stroke diagnosis?: No VTE Prior VTE?: No VTE Risk Level:: Medical - moderate - high VTE Device Contraindication: N/A - Device Ordered VTE Drug Contraindication: Treatment Not Indicated
[2020-08-09 11:14] LABS: Glucose, Whole Blood 143 mg/dL (60-115)
--- NOTE | 2020-08-09 11:44 | MHC.CLN ---
F/U PO INTAKE 75-100% DIET RX: 2200DM-APPROPRITE PT RECEIVING GLUCERNA AND JEREMY TO PROMOTE WOUND HEALING SUPPLEMENT PROVIDES 634KCALS, 25G PROTEIN CONTINUE TO MONITOR PO INTAKE AND ACCEPTANCE OF SUPPLEMENTS
[2020-08-09 11:59] LABS: Hematocrit 22.5 % (37-47)
--- NOTE | 2020-08-09 15:29 | HO.PM.IMPN ---
Subjective Subjective Date of Service: 08/09/20 Interval History: patient feeling much better this morning, except feeling dryness and sensation of hair around the left eyelid , keep trying to pull hair from lower lid, is agreeing for blood transfusion this morning eating better. 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 ,no chills [employer] no headache, no dizziness CVS no chest pain, no palpitation GI no nausea, no vomiting Physical Exam Vital Signs: Vital Signs: Last Vital Signs Temp 98.7 F 08/09/20 15:20 Pulse 83 08/09/20 15:20 Resp 20 08/09/20 15:20 BP 182/79 H 08/09/20 15:20 Pulse Ox 95 08/09/20 15:20 Body Mass Index 23.1 Gen: legally blind, awake alert no distress , left eyelids no erythema no scaling HEENT: dry scales around left eye lids , no hair noted on left lower lid that is everted,sclera anicteric, moist mucus membranes Neck: supple Lungs: clear to auscultation bilaterally Heart: regular rate and rhythm, no murmurs Abd: soft, non-tender, non-distended Ext: R foot dressing in place , no drainage noted Neuro: alert and oriented x3, no focal findings Psych: appropriate affect Objective Data Current Medications Generic Name Dose Route Start Last Admin Trade Name Harmanq PRN Reason Stop Dose Admin Acetaminophen 650 mg 07/27/20 22:23 08/09/20 06:37 Acetaminophen 325 Mg Tablet PO 650 mg Q6H PRN Administration Pain, Mild (Pain Scale 1-3) Amlodipine Besylate 10 mg 07/28/20 09:00 08/09/20 08:31 Amlodipine Besylate 5 Mg Tablet PO 10 mg DAILY RAUL Administration Protocol Artificial Tears 2 drop 07/29/20 13:00 08/09/20 14:24 Artificial Tears 15 Ml Drops EYE-LEFT 2 drop QID RAUL Administration Ascorbic Acid 250 mg 07/28/20 09:00 08/09/20 08:33 Ascorbic Acid 250 Mg Tablet PO 250 mg BID RAUL Administration Aspirin 81 mg 07/28/20 09:00 08/09/20 08:31 Aspirin Enteric Coated 81 Mg Tablet. PO 81 mg DAILY RAUL Administration Atorvastatin Calcium 80 mg 07/27/20 22:23 08/08/20 22:49 Atorvastatin Calcium 80 Mg Tablet PO Not Given BEDTIME RAUL Atropine Sulfate 1 drop 07/27/20 22:23 08/09/20 14:24 Atropine Sulfate 1 % Ophth Jacki 2 Ml Bottle EYE-LEFT 1 drop TID [facility] Administration Calcitriol 0.25 mcg 07/28/20 09:00 08/09/20 08:32 Calcitriol 0.25 Mcg Capsule PO 0.25 mcg DAILY RAUL Administration Cyanocobalamin 1,000 mcg 08/15/20 09:00 Cyanocobalamin (Vitamin B-12) 1,000 Mcg/Ml Vial IM Q28D [facility] Docusate Sodium 100 mg 07/27/20 22:23 Docusate Sodium 100 Mg Capsule PO DAILY PRN Constipation Fluticasone Propionate 1 spray 07/28/20 09:00 08/09/20 08:37 Fluticasone Propionate Nasal 16 Gm [place] NOSTRIL-B 1 spray DAILY [facility] Administration Heparin Sodium (Porcine) 5,000 unit 07/29/20 17:00 08/09/20 06:44 Heparin Sodium,Porcine 5,000 Unit/Ml Vial SUBCUT Not Given Q12H [facility] Hydralazine HCl 10 mg 08/03/20 16:52 08/04/20 21:02 Hydralazine Hcl 20 Mg/Ml Vial IVPUSH 10 mg Q6H PRN Administration SBP > 160 Protocol Ferric Sodium Gluconate 270 mls @ 67.5 mls/hr 08/09/20 18:00 Complex 250 mg/ Sodium IV 08/12/20 21:59 Chloride DAILY@1800 [facility] Insulin Human Lispro 0 unit 07/28/20 07:30 08/09/20 11:28 Insulin Lispro 100 Unit/Ml 3 Ml Vial SUBCUT Not Given QIDACHS [facility] Protocol Loratadine 10 mg 07/28/20 09:00 08/09/20 06:43 Loratadine 10 Mg Tablet PO Not Given DAILY [facility] Metoprolol Tartrate 50 mg 07/27/20 22:23 08/09/20 06:43 Metoprolol Tartrate 50 Mg Tablet PO Not Given BID [facility] Protocol Omeprazole 20 mg 07/28/20 06:30 08/09/20 05:15 Omeprazole 20 Mg Capsule.Dr PO Not Given DAILY@0630 [facility] Ondansetron HCl 4 mg 07/27/20 22:23 08/04/20 22:59 Ondansetron Hcl 4 Mg/2 Ml Vial IVPUSH 4 mg Q8H PRN Administration Nausea and Vomiting Oxycodone HCl 2.5 mg 08/06/20 11:10 08/09/20 06:39 Oxycodone Hcl Immed Release 5 Mg Tablet PO 2.5 mg Q6H PRN Administration Pain, Moderate (Pain Scale 4-6 Pharmacy Consult 1 each 07/27/20 16:25 Consult Rx Perform Med Rec MISCELLANE ONCE PRN Consult order Polyethylene Glycol 17 gm 07/28/20 09:00 08/09/20 06:43 Polyethylene Glycol 3350 17 Gm Powd.Pack PO Not Given DAILY RAUL Sevelamer Carbonate 800 mg 07/28/20 17:00 08/09/20 11:28 Sevelamer Carbonate Tablet 800 Mg Tablet PO Not Given TIDWM [facility] Sodium Chloride 3 ml 07/28/20 00:00 08/09/20 08:35 0.9 % Sodium Chloride Flush 3 Ml Syringe IVFLUSH 3 ml QSHIFT [facility] Administration Vitamin D 50 mcg 07/28/20 09:00 08/09/20 08:32 Cholecalciferol (Vitamin D3) 25 Mcg Tablet PO 50 mcg DAILY RAUL Administration Labs CBC & Chem 7: 08/09/20 11:28 08/08/20 05:35 Labs: Laboratory Results - last 24 hr 08/08/20 08/08/20 08/09/20 15:52 20:02 07:16 Hgb Hct POC Glucose 177 H 176 H 130 H Blood Type Antibody Screen Crossmatch 08/09/20 08/09/20 08/09/20 10:57 11:28 11:28 Hgb 7.0 L* Hct 22.5 L POC Glucose 143 H Blood Type O Positive Antibody Screen NEGATIVE Crossmatch See Detail Quality Stroke Does the patient have a stroke diagnosis?: No VTE Prior VTE?: No VTE Risk Level:: Medical - moderate - high VTE Device Contraindication: N/A - Device Ordered VTE Drug Contraindication: Treatment Not Indicated Assessment and Plan (1) Normocytic anemia: Status: Acute (2) Diabetes: Status: Acute (3) PAD (peripheral artery disease): Status: Acute (4) Constipation: Status: Acute (5) Osteomyelitis of great toe of right foot: Status: Acute (6) Acute kidney injury: Status: Acute Assessment and Plan: 75yo F with DM2, HTN, PAD, abnormal stress test back in April [facility] with nonhealing gangrenous R great toe # acute osteomyelitis R great toe with gangrene with PAD (R iliac artery occlusion) stable pain control, continue low-dose oxycodone , no fever chills, WBC normalized - previously treated at last admission in April with long-term IV ertapenem, s/p IV vanco + pip/anny x 7 days during this admission s/p fem-fem bypass and right great toe amputation pod #6 , continue dressing change as per Dr. Blood wound looks clean continue ASA, atorvastatin, and metoprolol. 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 # normocytic anemia - Acute drop in hematocrit likely dilutional and has anemia of chronic disease with underlying infection and renal disease, since hematocrit remained low, we discussed blood transfusion with patient and she is agreeable for blood transfusion, therefore will give 1 unit of packed RBC. status post Procrit, receiving iron transfusion as per Nephrology, follow CBC Closely # severe constipation - continue bowel regimen # B12 deficiency - on IM repletion monthly # HTN - BP stable today, strongly recommend to take current blood pressure medications amlodipine + metoprolol # L eye blepharitis - improved with erythromycin ointment, and artificial tears, will DC erythromycin ointment noted to have dryness will apply moisturizing cream. # DM2 - correction-dose lispro; well-controlled, A1c only 6.2, at home takes glipizide 5 mg daily, will resume oral hypoglycemic once by mouth intake improved # VTE ppx - UFH # dispo - pt came from [facility] but would like to change to different facility, case work aide 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
[2020-08-09 16:34] LABS: Glucose, Whole Blood 165 mg/dL (60-115)
[2020-08-09 20:32] LABS: Glucose, Whole Blood 169 mg/dL (60-115)
[2020-08-10] MEDS: 0.9 % Sodium Chloride Flush 3 ML SYRINGE IVFLUSH (00:03)
[2020-08-10 03:39] VITALS: BP 151/84; PULSE 99; RESP 18; TEMP 36.3; O2SAT 94
[2020-08-10] MEDS: Heparin Sodium,Porcine 5,000 UNIT/ML VIAL 5000 UNIT SUBCUT (06:18)
[2020-08-10 06:59] LABS: Hematocrit 28.4 % (37-47)
[2020-08-10 07:16] LABS: Glucose, Whole Blood 139 mg/dL (60-115)
[2020-08-10 07:31] VITALS: BP 180/71; PULSE 93; RESP 16; TEMP 36.8; O2SAT 96
--- NOTE | 2020-08-10 07:36 | PM.PNNEP ---
Subjective Subjective Date of Service: 08/10/20 Interval history: patient feeling much better this morning, except feeling dryness and sensation of hair around the left eyelid , keep trying to pull hair from lower lid, is agreeing for blood transfusion this morning eating better. 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 ,no chills [employer]PER no headache, no dizziness CVS no chest pain, no palpitation GI no nausea, no vomiting Physical Exam Vital Signs: Vital Signs: Last Vital Signs Temp 98.3 F 08/10/20 07:31 Pulse 93 08/10/20 07:31 Resp 16 08/10/20 07:31 BP 180/71 H 08/10/20 07:31 Pulse Ox 96 08/10/20 07:31 Body Mass Index 23.1 Const: General: cooperative, healthy appearing, comfortable, no acute distress, alert and awake Nutritional Appearance: average body habitus Orientation/consciousness: oriented to person, oriented to place, oriented to time and patient oriented x3 Limitations: no limitations and No language barrier HENMT: Other: Unremarkable Head: Yes normal to inspection Ears: hearing grossly normal bilaterally General nose exam: Normal external nose present Face and sinus: Yes normal facial exam Mouth: Normal oral and palatal mucosa present Throat: Yes posterior oropharynx normal Eyes: Other: 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 eyes, scabbing under the left lower eyelid General: appearance normal, both eyes and all related structures Sclerae: sclerae normal Pupils: Equal, round and reactive pupils present EOM: EOMs intact bilaterally Neck: Neck: Yes normal visual inspection, Yes no lymphadenopathy, Yes trachea midline and Yes supple Carotids: no bruits Chest: Chest palpation & inspection: normal inspection of the chest Resp: Effort & Inspection: normal respiratory effort, able to speak in complete sentences, no respiratory distress, no stridor and not tachypneic Auscultation: clear to auscultation bilaterally, no crackles, no rales, no rhonchi and no wheezes Cardio: Jugular venous distension: no JVD Palpation: normal PMI Rate: regular rate Rhythm: regular rhythm Heart sounds: S1 normal heart sound present, S2 normal heart sound present, no gallops, no murmurs and no rubs Bruits: no carotid bruits Peripheral pulses: Peripheral pulses 2+ throughout, posterior tibial pulses present (Right biphasic signal) and dorsalis pedis present (Right side DP signal) on the right (Right side DP signal) GI: Inspection: Yes normal to inspection Palpation (GI): Soft to palpation, nontender and Other GI palpation findings present ( Nontender) Auscultation: normal bowel sounds Back/Spine/Pelvis: Other: unremarkable Thoracic/Lumbar Spine: thoracic and lumbar spine normal to inspection Skin: Other: warm, dry, no rash General skin exam: no rashes or lesions noted Wounds: amputation site ( Healing well) and wounds noted (Right great toe gangrene) Hair: normal Neuro: General: oriented to person, oriented to place, oriented to time, patient oriented x3, moves all extremities and CN's II-XI intact bilaterally Cranial nerves: Yes CN's II-XII intact bilaterally, Yes Equal, round and reactive pupils present, Yes Normal hearing present and Yes Other cranial nerve findings present Cognition (Neuro): normal cognition Speech: No Abnormal speech present Gait exam (Neuro): Normal gait present Motor exam (neuro): 5/5 motor strength present throughout Extrem: Other: right great toe necrosis General: Yes normal to inspection, Yes full ROM, Yes no clubbing, cyanosis or edema, Yes no pedal edema, No clubbing, No cyanosis, No edema and Yes pedal edema (Trace bilateral) Psych: Appearance: grossly normal and well kempt Mental Status: mental status grossly normal and other Speech and movement: Normal speech and movement present Affect: normal affect Objective Data Labs CBC & Chem 7: 08/10/20 05:42 08/08/20 05:35 Labs: Laboratory Results - last 24 hr 08/09/20 08/09/20 08/09/20 10:57 11:28 11:28 Hgb 7.0 L* Hct 22.5 L POC Glucose 143 H Blood Type O Positive Antibody Screen NEGATIVE Crossmatch See Detail 08/09/20 08/09/20 08/10/20 16:28 20:28 05:42 Hgb 9.0 L D Hct 28.4 L D POC Glucose 165 H 169 H Blood Type Antibody Screen Crossmatch 08/10/20 07:07 Hgb Hct POC Glucose 139 H Blood Type Antibody Screen Crossmatch Microbiology Microbiology Results: Microbiology 08/06/20 Unknown Urine clean catch - Urine agrawal top Urine Culture - Final 07/27/20 17:11 Blood - Venous Blood Culture - Final No growth after 5 days. 07/27/20 17:10 Blood - Venous Blood Culture - Final No growth after 5 days. Assessment & Plan Assessment and plan (1) Normocytic anemia: Status: Acute (2) Diabetes: Status: Acute (3) PAD (peripheral artery disease): Status: Acute (4) Constipation: Status: Acute (5) Osteomyelitis of great toe of right foot: Status: Acute (6) Acute kidney injury: Status: Acute Assessment and Plan: 75yo F with DM2, HTN, PAD, abnormal stress test back in April sent in from [facility] with nonhealing gangrenous R great toe # acute osteomyelitis R great toe with gangrene with PAD (R iliac artery occlusion) stable pain control, continue low-dose oxycodone , no fever chills, WBC normalized - previously treated at last admission in April with long-term IV ertapenem, s/p IV vanco + pip/anny x 7 days during this admission s/p fem-fem bypass and right great toe amputation pod #6 , continue dressing change as per Dr. Blood wound looks clean continue ASA, atorvastatin, and metoprolol. 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 # normocytic anemia IV iron and procrit # HTN add losartan once creat at baseline # DM2 -suggest [id number] Procedures Date of Service Date of Service: 08/10/20 Progress Note: Quality Stroke Does the patient have a stroke diagnosis?: No
--- NOTE | 2020-08-10 07:58 | PC.NURSE ---
Pt's BP this AM is 180/71. Pt is refusing all medications this morning, including BP medication. Pt education regarding risks of high BP provided.
[2020-08-10 10:36] VITALS: BP 180/71; PULSE 93; O2SAT 96
[2020-08-10 11:27] LABS: Glucose, Whole Blood 170 mg/dL (60-115)
[2020-08-10 11:36] VITALS: BP 176/72; PULSE 85; RESP 17; TEMP 36.3; O2SAT 96
--- NOTE | 2020-08-10 12:07 | MHC.CM.PN ---
PT WAS ACCEPTED AT HER CURRENT PREFERRED FACILITY, [facility] HOWEVER THEY INDICATED THEY WOULD ONLY ACCEPT HER IF SHE PARTICIPATED WITH PT. CM SPOKE TO PTS THIS MORNING ABOUT THE IMPORTANCE OF PT PARTICIPATION AND WHY THE STR REQUIRED SUCH EVALUATIONS. INITIALLY PT CONTINUED TO BE RESISTANT STATING SHE WANTED DR. ADAMS [facility] TO DO THE EVAL BECAUSE SHE KNOWS WHAT SHE IS DOING CM EXPLAINED THE NEED FOR THE EVAL TO BE DONE BY A PHYSICAL THERAPIST. PT DID PARTICIPATE MINIMALLY WITH PT AND THE UPDATES WERE SENT TO [facility]. CM MET WITH PT TO DISCUSS DC TIME/TRANSPORT. PT IS AWARE THE NURSING STAFF WILL ASSIST HER IN GETTING READY FOR TRANSPORT. PT REPORTS SOME OF HER BELONGINGS ARE STILL AT [facility]. CM INFORMED HER SHE SHOULD CONTACT THEM TO STORE HER BELONGINGS UNTIL SHE CAN ARRANGE TO HAVE THEM PICKED UP. FOLLOW UP IMM DELIVERED YESTERDAY (08/09/20) AT 1600 HOURS. PT WILL DC TO [facility] TODAY AT 1300 HOURS VIA [facility].
--- NOTE | 2020-08-10 13:36 | P.DS_ITS ---
DS: Providers Provider Date of Service: 08/10/20 Date of admission: 07/27/20 21:20 Primary care physician: Alex Spence MD Consults: 07/27/20 22:23 Consult to Vascular Surgery Routine Consulting Provider: Mateo Blood Reason for consultation: severe PVD Has provider been notified: Yes 07/28/20 05:48 Consult to Infectious Diseases Routine Consulting Provider: Rosina Stein Reason for consultation: osteomyelitis acute vs chronic? Has provider been notified: No 07/29/20 09:51 Consult to Cardiology Routine Consulting Provider: [facility] Reason for consultation: cardiac cath prior to fem-pop bypass 07/29/20 09:55 Consult to Nephrology Routine Consulting Provider: [facility] Reason for consultation: CKD SCr 3, renal optimization pre-cardiac cath DS: Diagnosis Discharge Diagnosis (1) Normocytic anemia: Status: Acute (2) Diabetes: Status: Acute (3) PAD (peripheral artery disease): Status: Acute (4) Constipation: Status: Acute (5) Osteomyelitis of great toe of right foot: Status: Acute (6) Acute kidney injury: Status: Acute DS: Medications Discharge Medications Home Medications: Home Medications Medication Instructions Recorded Confirmed atropine 1 drp OPHTHALMIC-LEFT TID 04/15/20 07/27/20 prednisolone acetate 1 drp OPHTHALMIC-LEFT DAILY 04/15/20 07/27/20 timolol maleate 1 drp OPHTHALMIC-RIGHT DAILY 04/15/20 07/27/20 acetaminophen 1,000 mg PO TID PRN 07/27/20 07/27/20 aspirin 81 mg PO DAILY 07/27/20 07/27/20 calcitriol 0.25 mcg PO DAILY 07/27/20 07/27/20 cholecalciferol (vitamin D3) 50 mcg PO DAILY 07/27/20 07/27/20 cyanocobalamin (vitamin B-12) 1,000 mcg IM QMONTH 07/27/20 07/27/20 fluticasone propionate 1 spray INTRANASAL DAILY 07/27/20 07/27/20 glyburide 5 mg PO DAILY 07/27/20 07/27/20 vitamin E 400 unit PO DAILY 07/27/20 07/27/20 Previous Rx's Medication Instructions Recorded amlodipine 10 mg PO DAILY #30 tab 03/19/21 ascorbic acid (vitamin C) 250 mg PO BID #30 tab 04/28/20 atorvastatin 80 mg PO BEDTIME #30 tab 04/28/20 metoprolol tartrate 50 mg PO BID #60 tab 04/28/20 omeprazole 20 mg PO DAILY@0630 #30 cap 04/28/20 ferrous sulfate 324 mg PO DAILY #60 tab 08/10/20 polyethylene glycol 3350 17 g PO DAILY #30 ea 08/10/20 DS: Summary Hospital Course Hospital Course: history of presenting illness Chief Complaint: right big toe pain With past medical history of CKD, CAD, P 80, HTN, chronic anemia, diabetes who presents to the hospital with complaints of right big toe pain. Patient has been dealing with right big toe infection since March within admission in April for osteomyelitis and treatment completed with ertapenem and reports that she was planned for surgical intervention by Dr. Blood but been following with Wound Care at this time. She was at wound care today, they evaluated the wound noticed a wet and dry gangrene and asked her, to come to the hospital. She otherwise denies any headache, change in vision, no chest pain, no shortness of breath, no abdominal pain, nausea, has significant constipation, no urinary symptoms but has pain in the groin region secondary to history of pubic ramus fracture in the setting of will review ago accident in the past, and no lower extremity edema. On arrival to the ED patient vital significant for temp of 90.2? heart rate, respiratory rate of 18, blood pressure of 172/72, satting 98% on room air Lab significant for WBC count of 9.0, hemoglobin of 8.8 which is her baseline chronically, BUN of 65, creatinine of 3.1 which is around her baseline, EKG showed sinus tachycardia with left anterior fascicular block with which she does with compared to previous EKG Foot x-ray shows osteomyelitis of the distal phalanx right great toe, with moderate soft tissue swelling and edema. Abdominal x-ray shows moderate constipation, Given her complaint of groin pain patient underwent CT/pelvic abdomen which was negative for any abnormality. PMHx Anemia Blind CKD (chronic kidney disease) Coronary artery disease Diabetes Diabetic foot infection Essential hypertension PAD (peripheral artery disease) UTI due to Klebsiella species hospital course 5yo F with DM2, HTN, PAD, abnormal stress test back in April sent in from Wound Clinic with nonhealing gangrenous R great toe, patient recently diagnosed to have right big toe osteomyelitis with gangrene with PAD (R iliac artery occlusion) during her recent hospitalization in April of 2020, patient was discharged home on long-term IV ertapenem and was supposed to undergo cardiac catheterization and then subsequent revascularization however patient did not undergo above studies and was followed closely by wound clinic and since the wound was not improving she was admitted to [facility] and was treated with 1 week of IV vancomycin and Zosyn patient was followed closely by vascular surgeon Dr. Blood and underwent fem-fem bypass and right great toe amputation on 08/03/20 postprocedure she has good pain control, wound looks dry and clean, she does not need further antibiotic, is now being discharged to rehab facility with activity as tolerated and continued wound care. in regard to coronary artery disease patient was seen in consultation by search marketing coordinator and they felt that patient is high risk for surgery but cardiac catheterization will not change surgical risk rather would cause procedural complication including worsening of renal function therefore cardiac catheterization was not done and she has been continued on ASA, atorvastatin, and metoprolol. In regard to chronic kidney disease, patient creatinine has returned to normal range she had a slight bump in creatinine which improved with IV hydration, Bumex has been discontinued, patient was followed closely by Nephrology patient primary range scientist is Dr. Carey recommend follow-up in 1 week Normocytic anemia patient was noted to have Acute drop in hematocrit likely dilutional and related to anemia of chronic disease with underlying infection and renal disease, patient received 1 unit of packed RBC, Epogen and iron her hematocrit improved, recommend outpatient Epogen as per Nephrology. History of constipation recommend bowel regimen B12 deficiency continue IM repletion monthly HTN have intermittent elevated blood pressures since patient refused to take her medications she needs lot of encouragement and enforcement to take blood pressure medication L eye blepharitis, patient treated with erythromycin ointment for infection has improved but patient noted to have mild dryness underneath lower lid recommend to apply Vaseline. DM2 well-controlled, A1c only 6.2, at home takes glipizide 5 mg daily , continue the same and recommend blood sugar monitoring twice a day Time Spent with Patient Time attestation: Total time spent providing and/or coordinating discharge services: Discharge coordination time: Greater than 30 minutes Quality: Stroke Does the patient have a stroke diagnosis?: No Physical Exam Vital Signs: Vital Signs: Last Vital Signs Temp 97.4 F 08/10/20 11:36 Pulse 85 08/10/20 11:36 Resp 17 08/10/20 11:36 BP 176/72 H 08/10/20 11:36 Pulse Ox 96 08/10/20 11:36 Body Mass Index 23.1 Gen: legally blind, awake alert no distress , left eyelids no erythema no scaling HEENT: dry scales around left eye lids , no hair noted on left lower lid that is everted,sclera anicteric, moist mucus membranes Neck: supple Lungs: clear to auscultation bilaterally Heart: regular rate and rhythm, no murmurs Abd: soft, non-tender, non-distended Ext: R foot dressing in place , no drainage noted Neuro: alert and oriented x3, no focal findings Psych: appropriate affect DS: Data Data Completed and Pending Completed studies during hospitalization [Text1]: Pending at discharge 08/03/20 16:00 Surgical [PTH] Routine Procedures Dilation of Left External Iliac Artery using Drug-Coated Balloon, Percutaneous Approach (04/14/20) Insertion of Infusion Device into Superior Vena Cava, Percutaneous Approach (04/14/20) Ultrasonography of Superior Vena Cava, Guidance (04/14/20) Labs on day of discharge: Laboratory Results - last 24 hr 08/09/20 08/09/20 08/09/20 11:28 16:28 20:28 Hgb Hct POC Glucose 165 H 169 H Crossmatch See Detail 08/10/20 08/10/20 08/10/20 05:42 07:07 11:23 Hgb 9.0 L D Hct 28.4 L D POC Glucose 139 H 170 H Crossmatch Discharge Plan Discharge Patient Disposition: Xfer [facility] Discharge Diagnosis: acute osteomyelitis right great toe status post amputation peripheral artery disease acute on chronic kidney disease acute on chronic normocytic anemia severe constipation hypertension left eye blepharitis diabetes mellitus Referrals: Juan Jose Call [Outside] - 1 Week Alex Spence MD [Primary Care Provider] - 1 Week Discharge Medications: New polyethylene glycol 3350 17 gram Powder In Packet 17 g PO DAILY Qty: 30 RF: 0 ferrous sulfate 324 mg (65 mg iron) tablet,delayed release (DR/EC) 324 mg PO DAILY Qty: 60 RF: 0 Continued prednisolone acetate 1 % drops,suspension 1 drp ophthalmic-Left DAILY RF: 0 timolol maleate 0.25 % drops 1 drp ophthalmic-Right DAILY RF: 0 atropine 1 % drops 1 drp ophthalmic-Left TID RF: 0 amlodipine 5 mg Tablet 10 mg PO DAILY Qty: 30 RF: 0 atorvastatin 80 mg Tablet 80 mg PO BEDTIME Qty: 30 RF: 0 metoprolol tartrate 25 mg Tablet 50 mg PO BID Qty: 60 RF: 0 omeprazole 20 mg Capsule,Delayed Release(Dr/Ec) 20 mg PO DAILY@0630 Qty: 30 RF: 0 ascorbic acid (vitamin C) 250 mg Tablet 250 mg PO BID Qty: 30 RF: 0 glyburide 5 mg Tablet 5 mg PO DAILY RF: 0 aspirin 81 mg Tablet,Delayed Release (Dr/Ec) 81 mg PO DAILY RF: 0 acetaminophen 500 mg Tablet 1,000 mg PO TID PRN (Reason: Pain (Scale Score 1-3)) RF: 0 fluticasone propionate 50 mcg/actuation [place],Suspension 1 spray INTRANASAL DAILY RF: 0 calcitriol 0.25 mcg Capsule 0.25 mcg PO DAILY RF: 0 vitamin E 400 unit Capsule 400 unit PO DAILY RF: 0 cholecalciferol (vitamin D3) 50 mcg (2,000 unit) Tablet 50 mcg PO DAILY RF: 0 cyanocobalamin (vitamin B-12) 1,000 mcg/mL Kit 1,000 mcg IM QMONTH RF: 0 Discontinued fexofenadine 60 mg Tablet 60 mg PO DAILY RF: 0 sevelamer HCl 800 mg Tablet 800 mg PO TID RF: 0 bumetanide 0.5 mg Tablet 0.5 mg PO BID RF: 0 doxycycline hyclate 100 mg capsule 100 mg PO BID 30 Days Qty: 60 RF: 1 Discharge Orders: Discharge Order (Routine); Ordered 08/10/20 Ordered By: Michaelle Knapp Diet: diabetic diet and low fat, low cholesterol Activity on Discharge: As tolerated Stand Alone Forms: Patient Portal Discharge page Care Plan Goals: admitted with right toe osteomyelitis, status post amputation, well-healing wound continue wound care, ambulate as tolerated will need physical therapy, dressing change daily. Health Concerns: Follow blood sugar daily, follow blood pressure needs to emphasize importance of taking all medications, will need Procrit shots as per Nephrology recommend Plan of Treatment: outpatient follow-up with primary care physician Dr. Spence, Nephrology Dr. Carey and vascular surgeon Dr. Blood Assessment: as above
== END 2020-08-10 13:10 | disposition skilled nursing facility (03) | DRG 253 ==
LOC: HO.ED 19:13 → HO.EDOVER 22:09 → HO.S3 22:13 → HO.ICU 08-03 16:28 → HO.IMC 08-04 14:07
PROVIDERS: Family Medicine; Internal Medicine Nephrology; Internal Medicine Pulmonary Disease; Nurse Practitioner Family; Registered Nurse Community Health; Surgery Vascular Surgery; Admitting Provider Internal Medicine; Emergency Provider Emergency Medicine; PCP Internal Medicine; Visit Provider Hospitalist
PROC: 041L0JH Bypass Left Femoral Artery to Right Femoral Artery with Synthetic Substitute, Open Approach (ICD-10-PCS; principal; 2020-08-03 12:00)
DX: E11.52 Type 2 diabetes mellitus with diabetic peripheral angiopathy with gangrene (principal); M86.171 Other acute osteomyelitis, right ankle and foot; N17.9 Acute kidney failure, unspecified; I12.0 Hypertensive chronic kidney disease with stage 5 chronic kidney disease or end stage renal disease; N18.5 Chronic kidney disease, stage 5; E78.5 Hyperlipidemia, unspecified; E11.69 Type 2 diabetes mellitus with other specified complication; E11.22 Type 2 diabetes mellitus with diabetic chronic kidney disease; K59.00 Constipation, unspecified; L30.9 Dermatitis, unspecified; D63.1 Anemia in chronic kidney disease; H01.006 Unspecified blepharitis left eye, unspecified eyelid; E53.8 Deficiency of other specified B group vitamins; E11.621 Type 2 diabetes mellitus with foot ulcer; L97.514 Non-pressure chronic ulcer of other part of right foot with necrosis of bone; Z20.822 Contact with and (suspected) exposure to COVID-19; Z79.82 Long term (current) use of aspirin; Z79.899 Other long term (current) drug therapy
CPT/HCPCS: 36415; 73620; 74018; 74176; 80048; 80076; 80202; 81001; 81003; 82040; 82607; 82728; 82947; 83036; 83540; 83605; 83735; 84100; 84156; 84300; 85014; 85018; 85025; 85027; 85652; 85730; 86140; 86850; 86900; 86901; 86923; 87040; 87086; 87635; 88305; 88311; 93005; 97162; 97530; 99285; C1757; C1768; J0885; J1100; J1170; J2270; J2370; J2405; J2543; J3010; J3370; J3475; P9016

== ENCOUNTER → 2020-08-29 14:51 | Outpatient (BNVA) | payer MEDICARE, MEDICAID, SELFPAY | PROVIDERS: PCP Internal Medicine; Visit Provider Surgery Vascular Surgery | DX: I73.9 Peripheral vascular disease, unspecified (principal); E11.65 Type 2 diabetes mellitus with hyperglycemia; E11.22 Type 2 diabetes mellitus with diabetic chronic kidney disease; E11.621 Type 2 diabetes mellitus with foot ulcer; L97.429 Non-pressure chronic ulcer of left heel and midfoot with unspecified severity; I12.9 Hypertensive chronic kidney disease with stage 1 through stage 4 chronic kidney disease, or unspecified chronic kidney disease; N18.9 Chronic kidney disease, unspecified; I25.10 Atherosclerotic heart disease of native coronary artery without angina pectoris; Z95.820 Peripheral vascular angioplasty status with implants and grafts; Z89.422 Acquired absence of other left toe(s) | CPT/HCPCS: 99212 ==

== ENCOUNTER 2020-09-06 15:25 | Emergency (ER) | payer MEDICARE, MEDICAID, SELFPAY ==
--- NOTE | ~2020-09-06 | CT_ITS ---
EXAMINATION: CT HEAD WITHOUT CONTRAST CLINICAL INFORMATION: Fall. COMPARISON: 12/26/2008 TECHNIQUE: Contiguous axial imaging was performed from the skull base to vertex without intravenous administration of contrast. This CT examination was performed using dose optimization techniques as appropriate, variously including the following: *Automated exposure control *Adjustment of mA and/or kV according to patient size (this includes techniques or standardized protocols for targeted exams where dose is matched to indication/reason for exam; i.e. extremities or head) *Use of iterative reconstruction technique DLP: 902 mGy-cm FINDINGS: There is no evidence of acute intracranial hemorrhage or territorial infarction. No abnormal mass effect or midline shift is seen. Sifuentes to white matter differentiation is well preserved. No extra-axial fluid collections are identified. Lacunar infarcts are evident in the right basal ganglia at the internal capsule at the genu and anterior limb as well as the caudate head. Mild enlargement of the ventricles, sulci, and extra-axial CSF spaces is indicative of parenchymal volume loss. A few foci of hypoattenuation in the subcortical and periventricular white matter are most consistent with chronic microangiopathic changes. Osseous structures are normal. Dense material is present within the left vitreous from prior silicone autoinjection additional scleral prosthesis is evident at the lateral aspect of the right lobe. The mastoid air cells and visualized portions of the paranasal sinuses are well aerated. CT/CT head/brain wo con IMPRESSION: No acute intracranial pathology. Chronic appearing lacunar infarcts in the right basal ganglia.
--- NOTE | ~2020-09-06 | XR_ITS ---
EXAMINATION: XR HIP, RIGHT CLINICAL INFORMATION: Fall COMPARISON: 08/04/2020 TECHNIQUE: AP view of the pelvis and 2 views of the right hip. FINDINGS: No displaced pelvic fracture. The right femoral head is well-seated within the acetabulum. Mild degenerative change in the right hip. Sacroiliac joints and pubic symphysis appear grossly intact. Vascular calcifications. XR/XR hip RT w [id number] IMPRESSION: No displaced fracture.
--- NOTE | ~2020-09-06 | CT_ITS ---
EXAMINATION: CT HIP WITHOUT CONTRAST, RIGHT CLINICAL INFORMATION: Pain after fall. COMPARISON: CT dated 07/27/2020. TECHNIQUE: Multidetector volumetric imaging was obtained through the right hip without contrast. Multiplanar reformatted images in coronal and sagittal orientations were submitted. This CT examination was performed using dose optimization techniques as appropriate, variously including the following: *Automated exposure control *Adjustment of mA and/or kV according to patient size (this includes techniques or standardized protocols for targeted exams where dose is matched to indication/reason for exam; i.e. extremities or head) *Use of iterative reconstruction technique DLP: 902 mGy-cm FINDINGS: No acute fracture or malalignment. 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 There is mild osteoarthritis in the right SI joint as well. An old healed right inferior pubic ramus fracture is noted. No acute fractures are identified. There is a 5 x 3.5 x 7.5 cm collection surrounding the right femoral femoral bypass graft at the right common femoral anastomosis. This could correspond to a hematoma or seroma. Pseudoaneurysm is not excluded, though less likely. Significant edema is present at the hip. There is calcific atherosclerosis in the iliac and femoral arteries. Musculature is unremarkable. Diverticulosis is present in the pelvis. CT/CT hip RT wo con IMPRESSION: 1. No acute fracture or malalignment. 2. A new 7.5 cm collection surrounding the right common femoral anastomosis of the femorofemoral bypass graft, possibly a hematoma or seroma. Pseudoaneurysm is also possible, though less likely.
[2020-09-06 16:14] VITALS: BP 131/54; PULSE 101; RESP 18; TEMP 37.3; O2SAT 99; BMI 26.3
[2020-09-06 18:03] VITALS: BP 135/67; PULSE 96; RESP 17; O2SAT 99
--- NOTE | 2020-09-06 18:11 | PC.NURSE ---
pPt comes to er from home complaining of pain in right groin after falling trying to sit down on the toilet. Pt denies hitting head. pt also complains of chronic right foot pain after having amputation of rt great toe. Pt is blind since 2013. pt does not ambulate. Pt is also seeking help for placement until she can get around better to live by herself.
--- NOTE | 2020-09-06 18:15 | ED_ITS ---
HPI - Fall General Chief Complaint: Fall Stated Complaint: MULTIPLE COMPLAINTS Time Seen by Provider: 09/06/20 18:13 History of Present Illness HPI Narrative: Patient is 75-year-old female presents today after falling. Patient accidentally fell has a history of blindness. Lives alone. Complaining of pain to the hip area. Unable ambulate. Came to the emergency department. Denies any headache denies any neck injury. Denies any head injury. Denies being on any blood thinners. No fever no chills. Positive history diabetes status post right great toe amputation a few months ago. No chest pain or shortness of breath. No diaphoresis. No fever no chills. Patient did not rece [place] her coronavirus vaccine. Related Data Home Medications Medication Instructions Recorded Confirmed atropine 1 % eye drops 1 drp OPHTHALMIC-LEFT TID 04/15/20 07/27/20 prednisolone acetate 1 % eye 1 drp OPHTHALMIC-LEFT DAILY 04/15/20 07/27/20 drops,suspension timolol maleate 0.25 % eye drops 1 drp OPHTHALMIC-RIGHT DAILY 04/15/20 07/27/20 acetaminophen 500 mg tablet 1,000 mg PO TID PRN 07/27/20 07/27/20 aspirin 81 mg tablet,delayed 81 mg PO DAILY 07/27/20 07/27/20 release calcitriol 0.25 mcg capsule 0.25 mcg PO DAILY 07/27/20 07/27/20 cholecalciferol (vitamin D3) 50 50 mcg PO DAILY 07/27/20 07/27/20 mcg (2,000 unit) tablet cyanocobalamin (vitamin B-12) 1,000 mcg IM QMONTH 07/27/20 07/27/20 1,000 mcg/mL injection kit fluticasone propionate 50 1 spray INTRANASAL DAILY 07/27/20 07/27/20 mcg/actuation nasal spray,suspension glyburide 5 mg tablet 5 mg PO DAILY 07/27/20 07/27/20 vitamin E 400 unit capsule 400 unit PO DAILY 07/27/20 07/27/20 Previous Rx's Medication Instructions Recorded amlodipine 5 mg tablet 10 mg PO DAILY #30 tab 04/28/20 ascorbic acid (vitamin C) 250 mg 250 mg PO BID #30 tab 04/28/20 tablet atorvastatin 80 mg tablet 80 mg PO BEDTIME #30 tab 03/19/21 metoprolol tartrate 25 mg tablet 50 mg PO BID #60 tab 04/28/20 omeprazole 20 mg capsule,delayed 20 mg PO DAILY@0630 #30 cap 04/28/20 release ferrous sulfate 324 mg (65 mg 324 mg PO DAILY #60 tab 08/10/20 iron) tablet,delayed release polyethylene glycol 3350 17 gram 17 g PO DAILY #30 ea 08/10/20 oral powder packet Allergies Allergy/AdvReac Type Severity Reaction Status Date / Time No Known Allergies Allergy Verified 09/06/20 16:14 [No Known Allergies*] Review of Systems Review of Systems: No fever no chills no chest pain or shortness of breath No diaphoresis Yes all other systems are reviewed and are negative [facility] Past Medical History Medical History Anemia Blind CKD (chronic kidney disease) Coronary artery disease Diabetes Diabetic foot infection Essential hypertension PAD (peripheral artery disease) UTI due to Klebsiella species Social History Social History Household Members: None Housing: Assisted Do you presently have visiting nurse or other home services: No Alcohol intake: unknown Patient Tobacco Use Status: Never used Tobacco Second Hand Smoke Exposure: No Use of substances other than those prescribed or required for medical reasons: No Advance Directives: No Advance Directives Information Provided: Yes service: No Current occupational status: disabled Physical Exam Vital Signs: Vital Signs: Last Vital Signs Temp 99.2 F 09/06/20 16:14 Pulse 94 09/06/20 18:44 Resp 16 09/06/20 18:44 BP 163/68 H 09/06/20 18:44 Pulse Ox 96 09/06/20 18:44 Body Mass Index 26.3 Appearance: Alert. Oriented X3. No acute distress. Eyes: Extraocular muscle intact ENT: Pharynx normal. Neck: Normal inspection. No posterior C-spine tenderness. Trachea is midline, Neck supple. No lymph nodes noted. No crepitus CVS: Normal heart rate and rhythm. Pulses normal. Normal S1 and S2 Respiratory: No respiratory distress. Breath sounds normal. No Wheezing. No rales Abdomen: Soft and nontender. No rigidity. No distention. good BS x4 Skin: Skin warm and dry. Normal skin color. Normal skin turgor. Patient's wound post great toe amputation is intact. There is no redness noted. No discharge noted. There is good pulses at dorsalis pedis. The skin feels warm. Sensation intact. Extremities: No lower extremity edema. Neurovascular intact to all extremities. No Lacerations. Pain on movement of the right hip. Right knee range of motion intact there is no tenderness on palpation of the right ankle. Neuro: Oriented X 3. No motor deficit. No sensory deficit. Moving all extermities. No slurred speech MDM - Fall MDM Narrative Medical decision making narrative: X-ray of the hip did not show any acute fracture. CT scan of the head did not show any evidence of bleeding/fracture. CT scan of the hip was done. It shows a seroma in the right hip area next to the graft. This finding was discussed with Dr. Blood from vascular surgery felt this is an old finding previous imaging at [facility] showed the same. Patient's white count is normal. She is unable to ambulate secondary to her condition. Patient is also blind. Will get physical therapy to evaluate patient in morning. Patient's case discussed with case management. They are ready involved. Will attempt to place patient in to another rehab unit after she gets a physical therapy clearance. Currently in stable condition. Lab Data Attestation: I reviewed the patient's lab results. Result diagrams: 09/06/20 18:38 09/06/20 18:38 Labs: Lab Results 09/06/20 Range/Units 18:38 WBC 7.5 (4.8-10.8) X10*3/uL RBC 3.40 L (4.20-5.50) X10*6/uL Hgb 9.6 L (12.0-16.0) g/dl Hct 30.7 L (37-47) % MCV 90.3 (80-98) fL MCH 28.2 (27.0-33.0) pg MCHC 31.3 (31.0-35.0) g/dl RDW 14.7 (11.0-16.0) % Plt Count 255 D (160-400) X10*3/uL MPV 10.0 (9.4-12.3) fL Immature Gran % (Auto) 0.1 (0.0-0.4) % Neut % (Auto) 58.0 (45-73) % Lymph % (Auto) 26.2 (20-40) % Harris % (Auto) 8.7 (2-11) % Eos % (Auto) 5.9 H (0-4) % Baso % (Auto) 1.1 (0-2) % Lymph # (Auto) 2.0 (1.2-4.9) X10*3/uL Harris # (Auto) 0.7 (0.1-1.2) X10*3/uL Eos # (Auto) 0.4 (0.0-0.4) X10*3/uL Baso # (Auto) 0.1 (0.0-0.2) X10*3/uL Abs Immat Gran (auto) 0.01 (0.00-0.03) X10*3/uL Absolute Neuts (auto) 4.4 (2.0-8.3) X10*3/uL Absolute Nucleated RBC 0.000 (0.0-0.012) X10*3/uL Nucleated RBC % (auto) 0.0 (0.0-0.2) /100WBC Discharge Plan Discharge Clinical Impression: Fall, Chronic hip pain Prescriptions: No Action prednisolone acetate 1 % drops,suspension 1 drp ophthalmic-Left DAILY RF: 0 timolol maleate 0.25 % drops 1 drp ophthalmic-Right DAILY RF: 0 atropine 1 % drops 1 drp ophthalmic-Left TID RF: 0 amlodipine 5 mg Tablet 10 mg PO DAILY Qty: 30 RF: 0 atorvastatin 80 mg Tablet 80 mg PO BEDTIME Qty: 30 RF: 0 metoprolol tartrate 25 mg Tablet 50 mg PO BID Qty: 60 RF: 0 omeprazole 20 mg Capsule,Delayed Release(Dr/Ec) 20 mg PO DAILY@0630 Qty: 30 RF: 0 ascorbic acid (vitamin C) 250 mg Tablet 250 mg PO BID Qty: 30 RF: 0 glyburide 5 mg Tablet 5 mg PO DAILY RF: 0 aspirin 81 mg Tablet,Delayed Release (Dr/Ec) 81 mg PO DAILY RF: 0 acetaminophen 500 mg Tablet 1,000 mg PO TID PRN (Reason: Pain (Scale Score 1-3)) RF: 0 fluticasone propionate 50 mcg/actuation [employer],Suspension 1 spray INTRANASAL DAILY RF: 0 calcitriol 0.25 mcg Capsule 0.25 mcg PO DAILY RF: 0 vitamin E 400 unit Capsule 400 unit PO DAILY RF: 0 cholecalciferol (vitamin D3) 50 mcg (2,000 unit) Tablet 50 mcg PO DAILY RF: 0 cyanocobalamin (vitamin B-12) 1,000 mcg/mL Kit 1,000 mcg IM QMONTH RF: 0 polyethylene glycol 3350 17 gram Powder In Packet 17 g PO DAILY Qty: 30 RF: 0 ferrous sulfate 324 mg (65 mg iron) tablet,delayed release (DR/EC) 324 mg PO DAILY Qty: 60 RF: 0
[2020-09-06] MEDS: HYDROmorphone HCl 0.5 MG/0.5 ML SYRINGE IVPUSH (18:43)
[2020-09-06 18:44] VITALS: BP 163/68; PULSE 94; RESP 16; O2SAT 96
[2020-09-06 18:45] LABS: Basophils Absolute Auto 0.1 X10*3/uL (0.0-0.2); Basophils Percent Auto 1.1 % (0-2); Eosinophils Absolute Auto 0.4 X10*3/uL (0.0-0.4); Eosinophils Percent Auto 5.9 % (0-4); Hematocrit 30.7 % (37-47); Hemoglobin 9.6 g/dl (12.0-16.0); Imm Gran Abs Auto 0.01 X10*3/uL (0.00-0.03); Imm Gran Pct Auto 0.1 % (0.0-0.4); Lymphocytes Percent Auto 26.2 % (20-40); MANUAL DIFF FLAG NO; Mean Corpuscular HGB Conc 31.3 g/dl (31.0-35.0); Mean Corpuscular Hemoglobin 28.2 pg (27.0-33.0); Mean Corpuscular Volume 90.3 fL (80-98); Monocytes Absolute Auto 0.7 X10*3/uL (0.1-1.2); Monocytes Percent Auto 8.7 % (2-11); Neutrophils Absolute Auto 4.4 X10*3/uL (2.0-8.3); Platelet Count 255 X10*3/uL (160-400); Red Cell Distribution Width 14.7 % (11.0-16.0); White Blood Count 7.5 X10*3/uL (4.8-10.8)
--- NOTE | 2020-09-06 20:02 | PC.NURSE ---
REPORT TAKEN FROM LANA RODGERS, FIRST CONTACT WITH PT. RESTING IN BED EYES CLOSED SKIN PWD RESPIRATIONS EVEN UNLABORED, NO FACIAL GRIMACING NOTED. AWAITING LAB RESULTS AND PT EVAL. WILL CONTINUE TO MONITOR.
[2020-09-06 20:48] LABS: Anion Gap 13 (12-20); Blood Urea Nitrogen 50 mg/dL (9-16); Calcium 8.8 mg/dL (8.4-10.2); Carbon Dioxide 24 mmol/L (22-29); Chloride 109 mmol/L (96-108); Creatinine Clr Calc Pharmacy 17.3; Estimated Glomerular Filt Rate 15; Glucose Random 208 mg/dL (60-115); Potassium 5.2 mmol/L (3.3-5.1); Sodium 141 mmol/L (135-145)
[2020-09-06 20:51] VITALS: BP 151/66; PULSE 91; RESP 12; TEMP 36.8; O2SAT 97
--- NOTE | 2020-09-06 21:41 | PC.NURSE ---
CASE MANAGEMENT AT BEDSIDE TO SPEAK WITH PT. CORNELIA RODGERS CM SPOKE WITH PT DAUGHTER AT LENGTH WELL BY PHONE. CURRENT DESIRE FOR SHORT TERM REHAB- REQUESTS TO NOT ATTEND CERTAIN FACILITIES- NO [facility]. PT AWAITING PHYSICAL THERAPY CONSULT IN AM, REFERRALS TO BE MADE FOR STR.
--- NOTE | 2020-09-06 22:27 | MHC.CM.ED ---
Addendum entered by Nani Montes 09/06/20 22:48: 15 referrals placed, with [facility] first choice. Original Note: CM spoke with HCP/daughter Amara Rojo ([phone]), who tells CM that her mother has been in and out of the hospital/STR since April. Pt is blind. Pt has been at [facility] and [facility]. Was d/c for [facility] on 08/31 to daughter's home. Amara states her mother is very weak. She brought her to her PCP today, Dr. Alex Spence and he told her to bring her mother to the ED, as see needs more PT. Amara states her mother is very unsteady on her feet and had her R great toe amputated in July. Amara would like to see how her mother does with more rehab. Unsure of group home living situation. Above shared with Dr. Coulter. CM then met with pt. Pt has a walker. Admits to being very unsteady on her feet since her toe amputation. Tells CM a story about a neighbor placing bugs in her home, which caused her toe infection. Pt described the bugs, even though she is blind. RN aware of conversation. Pt states she wants to go to a facility that has good PT. She will not go to [facility] or [facility]. Pt first choice is [facility]. Pt is unsure of other facilities, but is willing for CM to place referrals locally and then discuss when bed offers are made. Pt sttes she is unsure of her living situation after STR. CM will follow for D/C needs.
[2020-09-06 22:35] VITALS: BP 157/69; PULSE 93; RESP 16; TEMP 36.8; O2SAT 98
[2020-09-06 23:52] VITALS: BP 170/79; PULSE 95; RESP 16; TEMP 36.8; O2SAT 99
[2020-09-07] VITALS (12 sets, daily range): BP systolic 141–182; BP diastolic 52–89; PULSE 74–96; RESP 16–18; TEMP 36.8–36.9; O2SAT 92–98
--- NOTE | 2020-09-07 00:04 | PC.NURSE ---
Pt requesting pain meds. Dr Mendez made aware. Dr Mendez states she is aware that home meds need to be continued in system in order for this RN to medicate and states she will do so when she's able.
--- NOTE | 2020-09-07 00:47 | PC.NURSE ---
Dr Mendez made aware that pt is HTN with hx of same.
[2020-09-07] MEDS: Atorvastatin Calcium 80 MG TABLET PO (02:29)
[2020-09-07] MEDS: Metoprolol Tartrate 50 MG TABLET PO (02:30)
[2020-09-07] MEDS: Acetaminophen 325 MG TABLET 975 MG PO (02:31)
--- NOTE | 2020-09-07 03:21 | PC.NURSE ---
Dr Mendez at bedside to discuss pt's c/o pain with pt.
[2020-09-07 03:27] LABS: Glucose Urine UA NEG (NEG); Leukocyte Esterase Urine NEG (NEG); Nitrite Urine NEG (NEG); Specific Gravity - Urine 1.015 (1.005-1.025); UACC Culture Trigger NO; Urine Blood NEG (NEG); Urine Ketones NEG (NEG); Urine Protein 2+ MG/DL (NEG-TRACE)
[2020-09-07 03:30] LABS: Appearance Urine CLEAR; Color Urine YELLOW
[2020-09-07] MEDS: oxyCODONE HCl Immed Release 5 MG TABLET 2.5 MG PO (03:36)
[2020-09-07 03:41] LABS: Bacteria Urine 1+ /LPF; Squamous Epithelial Cell Urine 1+ /LPF
--- NOTE | 2020-09-07 07:33 | PC.NURSE ---
report taken from erlin jensen pt here for cm/pt had toe amputation and unable to care for self at home, had falls. resting in bed on first contact, rr even/unlabored. breakfast tray at bedside. no distress noted. wctm.
--- NOTE | 2020-09-07 08:33 | MHC.CM.ED ---
Patient remains in ER. Physical therapy eval completed. Short term rehab is recommended. Clinical updates sent. [facility] is first choice. Continue to monitor for d/c needs.
[2020-09-07] MEDS: Atropine Sulfate 1 % Ophth Sol 2 ML BOTTLE 1 DROP EYE-LEFT ×3 (08:37→22:09)
[2020-09-07] MEDS: calcitrioL 0.25 MCG CAPSULE PO (08:38)
[2020-09-07] MEDS: Ascorbic Acid 250 MG TABLET PO ×2 (08:38→22:09)
[2020-09-07] MEDS: prednisoLONE Acetate 1 % Oph Susp 5 ML DRPBTL 1 DROP EYE-LEFT (08:38)
[2020-09-07] MEDS: glyBURIDE 5 MG TABLET PO (08:38)
[2020-09-07] MEDS: Aspirin Enteric Coated 81 MG TABLET.DR PO (08:39)
[2020-09-07] MEDS: Omeprazole 20 MG CAPSULE.DR PO (08:39)
[2020-09-07] MEDS: Cholecalciferol (Vitamin D3) 25 MCG TABLET 50 MCG PO (08:39)
[2020-09-07] MEDS: amLODIPine Besylate 5 MG TABLET 10 MG PO (08:39)
--- NOTE | 2020-09-07 08:59 | PC.NURSE ---
pt particular about medication administration, takes all meds po w/o issue. dulce maria jackson rn.
[2020-09-07] MEDS: oxyCODONE HCl Immed Release 5 MG TABLET PO (09:59)
[2020-09-07 11:12] LABS: COVID-19 Test Negative (Negative)
--- NOTE | 2020-09-07 13:28 | MHC.CM.ED ---
[facility] does not have a bed to offer. At this time, [facility], [address] [place] [address] and [facility] are the only facilities willing to offer a bed. These choices were discussed with patient. Patient is not sure which facility to choose. Patient will think about it. Continue to monitor for d/c needs.
--- NOTE | 2020-09-07 14:03 | MHC.CM.ED ---
[facility] is also able to offer a bed. Patient does not have a facility choice yet. Continue to monitor for d/c needs.
--- NOTE | 2020-09-07 14:28 | MHC.CM.ED ---
Met with patient in regards to discharge planning. Explained [facility], [address] [facility], [facility] and [facility] are the only facilities offering bed. Patient is not interested in these facilities because they're nursing homes. I don't want a snf. I want a place with good rehab. Patient agreeable to referral being broadcasted within 40 miles of her home. Referral will be broadcasted in [employer]. Continue to monitor for d/c needs.
[2020-09-07] MEDS: Cyanocobalamin (Vitamin B-12) 1,000 MCG/ML VIAL 1000 MCG IM (15:32)
--- NOTE | 2020-09-07 20:16 | PC.NURSE ---
Report received from Alberto RODGERS at change of shift. Pt observed to be resting comfortably in hospital bed with respirations even and unlabored without distress noted. RN and staff will continue to monitor.
--- NOTE | 2020-09-07 21:48 | PC.NURSE ---
Rn to bedside to answer call talamantes while preparing to obtain night medication. RN introduced herself and provided pt with list of medications that were due; pt stated that she does not take those medications and when informed that she has been receiving these medications since arrival she reported well I didn't know that, they have just been giving me my meds in a cup and telling me to take them . Pt refusing to take metoprolol and atorvastatin adding that the only pills she takes are Vitamins and dm medication. Pt oriented to time and reports being hungry but refusing to eat food from meal tray as she stated I'm not eating nothing that's been sitting out , pt accepted strawberry ensure from tray and is requesting gingerale. Pt placed on bed funes per request.
--- NOTE | 2020-09-07 22:56 | MHC.CM.ED ---
Addendum entered by Nani Montes 09/07/20 23:07: [facility] was referred to and do not have a bed. Original Note: CM received a call from Liaison at [facility], who had a concern that the STR in her facility would be like the STR's she has already been to. Liaison questioned if we had referred this pt to acute rehab. CM stated she was unsure if pt would qualify for acute rehab. CM spoke with pt. Pt would like referrals to acute rehab. 3 referrals placed. Explained to pt that if Acute rehabs do not accept her, then she would need to look at local STR. Pt wants CM to look into [facility] on [facility]. CM will check [employer] for referral to this facility. CM to follow for d/c needs.
--- NOTE | 2020-09-08 05:38 | PC.NURSE ---
provided pt with a periwick cause pt was afraid to go to sleep cause she might wet the bed. Pt was good with the decision to use the periwick. Got pt comfortable in bed and call talamantes close.
[2020-09-08 07:55] LABS: Glucose, Whole Blood 156 mg/dL (60-115)
--- NOTE | 2020-09-08 08:16 | MHC.CM.ED ---
Patient remains in ER. Referrals have been made to all 3 local acute rehab facilities. [facility] is not able to offer a bed. [facility] are still reviewing. Continue to monitor for d/c needs.
[2020-09-08 08:17] VITALS: BP 142/62; PULSE 97; RESP 18; TEMP 37; O2SAT 97
[2020-09-08] MEDS: Ascorbic Acid 250 MG TABLET PO ×2 (08:19→21:55)
[2020-09-08] MEDS: Aspirin Enteric Coated 81 MG TABLET.DR PO (08:19)
[2020-09-08] MEDS: glyBURIDE 5 MG TABLET PO (08:19)
[2020-09-08] MEDS: amLODIPine Besylate 5 MG TABLET 10 MG PO (08:19)
[2020-09-08] MEDS: Cholecalciferol (Vitamin D3) 25 MCG TABLET 50 MCG PO (08:19)
[2020-09-08] MEDS: prednisoLONE Acetate 1 % Oph Susp 5 ML DRPBTL 1 DROP EYE-LEFT (08:25)
[2020-09-08] MEDS: Atropine Sulfate 1 % Ophth Sol 2 ML BOTTLE 1 DROP EYE-LEFT ×3 (08:25→22:02)
--- NOTE | 2020-09-08 10:31 | MHC.CM.ED ---
Patient remains in ER. All 3 acute rehabs are declining patient at this time. Will meet with patient to discuss facilities that can offer beds. Continue to monitor for d/c needs.
[2020-09-08 15:14] VITALS: BP 151/64; PULSE 96; RESP 12; TEMP 37; O2SAT 98
[2020-09-08 18:57] VITALS: BP 143/61; PULSE 89; RESP 12; TEMP 37; O2SAT 97
--- NOTE | 2020-09-08 20:41 | MHC.CM.ED ---
Pt. not a candidate for Acute rehab-no beds offered. Referrals offered out 30 miles. 10 bed offers obtained, including some locally. Worked with pt for 2 hours. Would not choose a facility. Continuing to states she knows nothing about them and she is scared and blind. Pt happy to stay in ED. Pt continually changing subject or refusing facilities, as she wants acute rehab. Explained numerous times she is not a candidate. Spoke with Fabiana Carreno regarding issue and requesting help. Per Fabiana, pt was told that she needed to choose a facility today (it was already 6pm) and she would be transported in the am. Explained that if she has choices, and choses not to make a decision, that medicare will not pay for her hospital stay and she could be billed. Explained that it could be $1200/day and that we would not want that to happen to her. Pt states they can bill me, but I won't Pay . Pt chose [facility]. Notified facility at 1814 that pt. accepts the bed and we would like to transport her by ambulance tomorrow, 09/08, at 10am. Ambulance transportation arranged. Fawn RODGERS present with CM during discussion. CM will follow for d/c needs.
[2020-09-08 21:53] VITALS: BP 153/65; PULSE 89; RESP 16; O2SAT 98
[2020-09-08 21:55] VITALS: BP 153/65; PULSE 89
--- NOTE | 2020-09-08 22:03 | PC.NURSE ---
pt refusing blood pressure medication and cholesterol medication BP 153/65 notified
--- NOTE | 2020-09-09 04:01 | PC.NURSE ---
pt called nurse into room and stated that she felt as if her bed linens were wet and that the purewick fell out of place. this nurse with assistance of another nurse assisted in cleaning patient, changing bed linens and placing purewick back in correct spot. pt also requested orange juice and a snack, this nurse provided orange juice, jello and crackers for patient. no distress noted at this time. call talamantes in reach.
[2020-09-09 06:35] VITALS: RESP 16
[2020-09-09] MEDS: glyBURIDE 5 MG TABLET PO (07:57)
[2020-09-09] MEDS: Ascorbic Acid 250 MG TABLET PO (08:15)
[2020-09-09] MEDS: calcitrioL 0.25 MCG CAPSULE PO (08:15)
[2020-09-09] MEDS: Aspirin Enteric Coated 81 MG TABLET.DR PO (08:15)
[2020-09-09] MEDS: Cholecalciferol (Vitamin D3) 25 MCG TABLET 50 MCG PO (08:15)
[2020-09-09] MEDS: prednisoLONE Acetate 1 % Oph Susp 5 ML DRPBTL 1 DROP EYE-LEFT (08:18)
[2020-09-09] MEDS: Atropine Sulfate 1 % Ophth Sol 2 ML BOTTLE 1 DROP EYE-LEFT (08:18)
--- NOTE | 2020-09-09 08:59 | PC.NURSE ---
Dressing to right great toe amp site changed, Area dried, scabbed, pt declines to leave open to air, new dcd applied. Pt refused some AM meds, accepted all vitamins and eye drops. Aware of plan for [employer] at 1000.
--- NOTE | 2020-09-09 09:49 | PC.NURSE ---
call to Juaquin Floyd x1 for nurse to nurse
--- NOTE | 2020-09-09 09:51 | MHC.CM.PN ---
PT DISCHARGING TO [facility] AT 10AM, ACTION FOR BLS TRANSPORT. CM ATTEMPTED TO MEET W/PT PRIOR TO D/C HOWEVER PT IN BR FOR EXTENDED PERIOD, ED SENIOR SAS PROGRAMMER, RN AND ED PROVIDER AWARE.
--- NOTE | 2020-09-09 10:26 | PC.NURSE ---
vitals 167/76 100 98% room air
== END 2020-09-09 10:25 | disposition skilled nursing facility (03) ==
PROVIDERS: Physician Assistant; Emergency Provider Emergency Medicine Emergency Medical Services; PCP Internal Medicine
DX: G89.29 Other chronic pain (principal); M25.551 Pain in right hip; Z91.81 History of falling; H54.7 Unspecified visual loss; E11.22 Type 2 diabetes mellitus with diabetic chronic kidney disease; I12.9 Hypertensive chronic kidney disease with stage 1 through stage 4 chronic kidney disease, or unspecified chronic kidney disease; N18.9 Chronic kidney disease, unspecified; Z20.822 Contact with and (suspected) exposure to COVID-19; Z89.411 Acquired absence of right great toe; Z79.82 Long term (current) use of aspirin; Z79.899 Other long term (current) drug therapy
CPT/HCPCS: 36415; 70450; 73502; 73700; 80048; 81001; 82947; 83735; 85025; 87635; 96374; 97162; 99285; J1170

== ENCOUNTER 2020-12-05 12:38 | Outpatient (REF) | payer MEDICARE, MEDICAID, SELFPAY ==
--- NOTE | ~2020-12-05 | US_ITS ---
EXAMINATION: COLOR-FLOW DUPLEX IMAGING OF THE BILATERAL LOWER EXTREMITY ARTERIAL SYSTEM. VELOCITY MEASUREMENTS THROUGHOUT THE FEMORAL ARTERIES WITH ANKLE-BRACHIAL PERIPHERAL ARTERIAL TESTING. Interventional Radiologist: Richard Hull M.D., F.S.I.R., F.A.C.R. CLINICAL INFORMATION: This is a 75-year-old female with a left to right femoral-femoral bypass. Peripheral vascular disease. COMPARISON: Comparison is made to a previous study dated 04/17/2020. TECHNIQUE: Bilateral lower extremity duplex ultrasound was performed with velocity measurements and waveform analysis in the common femoral arteries, profunda femoris arteries, proximal mid and distal superficial femoral arteries, popliteal arteries and tibial vessels. This study was performed only at rest. FINDINGS: Velocities in cm/sec and phasicity as well as the presence of plaque are reported below. RIGHT LEG: There is biphasic flow present in the common femoral artery and profunda femoral artery suggesting inflow disease with SFA occlusion poor runoff visualized. Common Femoral: 146 cm/s. Previously, 38 Profunda Femoris: 142 cm/s. Previously, 37 Proximal SFA: Occluded. Mid SFA: Occluded Distal SFA: 26 cm/s. Previously, 21, monophasic Popliteal: 53 cm/s. Previously, 48, monophasic Tibial: 41 cm/s. Previously, 27, monophasic The right ankle-brachial index is 1.15. There is a fluid collection seen at the right groin incision site measuring 5.1 x 1.8 x 3.2 cm. This fluid surrounds the bypass graft. There are multiple lymph nodes at the right groin. The largest measures 4.6 x 0.9 x 1.3 cm. LEFT LEG: There is biphasic flow present in the common femoral artery suggesting hemodynamically significant disease within elevated velocity of 469 cm/s near the proximal anastomosis of the left to right femoral bypass. Common Femoral: 469 cm/s. Previously, 132 Profunda Femoris: 115 cm/s. Monophasic. Previously, Not seen Proximal SFA: Occluded. Mid SFA: Occluded Distal SFA: Occluded Popliteal: 24 cm/s. Monophasic. Previously, 54 Tibial: 21 cm/s. Monophasic. Previously, 28 The left ankle-brachial index is 1.15. VELOCITY MEASUREMENTS WITHIN THE BYPASS GRAFT: Inflow artery: 469 cm/s and biphasic. Proximal anastomosis: 322 cm/s and biphasic. Proximal bypass graft: 203 cm/s and monophasic. Mid bypass graft: 77 cm/s and monophasic. Distal bypass graft: 120 cm/s and biphasic. Distal anastomosis: 111 cm/s and biphasic. Outflow artery: 146 cm/s and biphasic. US/US arterial duplex LE BI IMPRESSION: 1. There is a high-grade stenosis with elevated velocity at the outflow of the left to right femoral-femoral bypass. 2. There are bilateral superficial femoral artery occlusions. 3. There is a fluid collection at the right groin incision site with a maximum diameter of 5.1 cm.
== END 2020-12-05 12:39 | disposition home or self-care (01) ==
LOC: HO.US 12:38
PROVIDERS: PCP Internal Medicine; Visit Provider Surgery Vascular Surgery
DX: I73.9 Peripheral vascular disease, unspecified (principal)
CPT/HCPCS: 93923; 93925

== ENCOUNTER → 2020-12-07 14:32 | Outpatient (BNVA) | payer MEDICARE, MEDICAID, SELFPAY | PROVIDERS: PCP Internal Medicine; Visit Provider Surgery Vascular Surgery | DX: I73.9 Peripheral vascular disease, unspecified (principal) | CPT/HCPCS: 99212 ==

== ENCOUNTER 2021-03-01 17:31 | Inpatient (IN) | payer MEDICARE, MEDICAID, SELFPAY ==
--- NOTE | ~2021-03-01 | XR_ITS ---
EXAMINATION: XR CHEST CLINICAL INFORMATION: Chest pain COMPARISON: Chest x-ray 04/22/2020 TECHNIQUE: Frontal portable view of the chest was obtained. 6:32 PM FINDINGS: Lungs are clear. No pulmonary vascular congestion. There is no pleural effusion. The heart size is normal. The cardiac and mediastinal contours are normal. There are calcifications of the thoracic aorta. There are multilevel degenerative changes of dorsal spine. Marked degenerative change of the right glenohumeral joint XR/XR chest 1V IMPRESSION: No acute abnormality of the chest.
--- NOTE | 2021-03-01 17:42 | ECG_ITS ---
Test Reason : CP Blood Pressure : / mmHG Vent. Rate : 085 BPM Atrial Rate : 085 BPM P-R Int : 140 ms QRS Dur : 086 ms QT Int : 390 ms P-R-T Axes : 062 -58 045 degrees QTc Int : 464 ms Normal sinus rhythm Left anterior fascicular block Abnormal ECG When compared with ECG of 27-JUL-2020 17:13, No significant change was found Referred By: Generic ED Physician Electronically Signed By:Carson Almeida
[2021-03-01 17:43] VITALS: BP 160/63; BP 170/68; PULSE 86; PULSE 90; RESP 18; TEMP 36.9; O2SAT 98; O2SAT 99; BMI 27.4
--- NOTE | 2021-03-01 17:49 | ED.CHESTPAIN ---
HPI - Chest Pain General Chief Complaint: Chest Pain Stated Complaint: CHEST PAIN Time Seen by Provider: 03/01/21 17:49 Source: patient Mode of arrival: ambulatory Limitations: no limitations History of Present Illness HPI narrative: Patient with history of peripheral vascular disease diabetes no history of coronary artery disease just prior to arrival felt funny in her left chest RN told her that she had fast heart rate but patient did not feel it then she started feeling some tingling in the left hand by the time EMS reached heart rate was in 80s received 324 mg of aspirin also patient was diaphoretic and she woke up from sleep which happens all the time Related Data Home Medications Medication Instructions Recorded Confirmed atropine 1 % eye drops 1 drp OPHTHALMIC-LEFT TID 04/15/20 03/01/21 prednisolone acetate 1 % eye 1 drp OPHTHALMIC-LEFT DAILY 04/15/20 03/01/21 drops,suspension acetaminophen 500 mg tablet 1,000 mg PO Q8H PRN 07/27/20 03/01/21 calcitriol 0.25 mcg capsule 0.25 mcg PO DAILY 07/27/20 03/01/21 cyanocobalamin (vitamin B-12) 1,000 mcg IM QMONTH 07/27/20 03/01/21 1,000 mcg/mL injection kit glyburide 5 mg tablet 5 mg PO DAILY 07/27/20 03/01/21 amlodipine 10 mg tablet 10 mg PO DAILY 12/07/20 03/01/21 ascorbic acid (vitamin C) 500 mg 1,000 mg PO DAILY 03/01/21 03/01/21 tablet aspirin 81 mg chewable tablet 81 mg PO DAILY 03/01/21 03/01/21 benzalkonium chloride 0.13 % lotion 1 ea TOPICAL BID 03/01/21 03/01/21 bisacodyl 10 mg rectal suppository 10 mg MN DAILY PRN 03/01/21 03/01/21 cholecalciferol (vitamin D3) 25 50 mcg PO DAILY 03/01/21 03/01/21 mcg (1,000 unit) tablet ferrous sulfate 325 mg (65 mg 325 mg PO DAILY 03/01/21 03/01/21 iron) tablet fluticasone propionate 50 1 spray INTRANASAL DAILY 03/01/21 03/01/21 mcg/actuation nasal spray,suspension magnesium hydroxide 400 mg/5 mL 30 ml PO BEDTIME PRN 03/01/21 03/01/21 oral suspension (Milk of Magnesia) metoprolol tartrate 25 mg tablet 25 mg PO BID 03/01/21 03/01/21 multivitamin 1 tab PO DAILY 03/01/21 03/01/21 polyethylene glycol 3350 17 gram 17 g PO DAILY 03/01/21 03/01/21 oral powder packet (Miralax) Allergies Allergy/AdvReac Type Severity Reaction Status Date / Time No Known Allergies Allergy Verified 03/01/21 17:43 [No Known Allergies*] Review of Systems Review of Systems: Yes all other systems are reviewed and are negative [facility] Past Medical History Medical History Anemia Blind CKD (chronic kidney disease) Coronary artery disease Diabetes Diabetic foot infection Essential hypertension PAD (peripheral artery disease) UTI due to Klebsiella species Social History Social History Household Members: None Housing: [facility] Do you presently have visiting nurse or other home services: No Alcohol intake: never Patient Tobacco Use Status: Never used Tobacco Second Hand Smoke Exposure: No Use of substances other than those prescribed or required for medical reasons: No Advance Directives: No Advance Directives Information Provided: Yes service: No Current occupational status: disabled Physical Exam Vital Signs: Vital Signs: Last Vital Signs Temp 97.9 F 03/01/21 19:56 Pulse 77 03/01/21 22:00 Resp 22 H 03/01/21 22:00 BP 158/63 H 03/01/21 22:00 Pulse Ox 98 03/01/21 22:00 BMI result Body Mass Index 27.4 Appearance: Alert. Oriented X3. No acute distress. Eyes: Legally blind ENT: Pharynx normal. Oral Mucosa moist Neck: Normal inspection. Neck supple. CVS: Normal heart rate and rhythm. Pulses normal. Respiratory: No respiratory distress. Equal air entry bilateral, no wheezing/rales/rhonchi Abdomen: Soft and nontender. Bowel sounds are present, no mass palpable, no CVA tenderness Skin: Skin warm and dry. Normal skin color. Normal skin turgor. Extremities: No lower extremity edema. No calf tenderness Neuro: Oriented X 3. No motor deficit. No sensory deficit.No cerebellar signs , cranial nerves II-XII intact MDM - Chest Pain MDM Narrative Medical decision making narrative: Patient with atypical chest pain without any acute EKG changes poor oral intake since she does not drink much water noticed to be in acute renal failure with creatinine increased to 4 from baseline of 2.5. Will admit patient for IV hydration and renal failure Medical Records Data Attestation: I reviewed the patient's medical records. Lab Data Attestation: I reviewed the patient's lab results. Result diagrams: 03/01/21 18:25 03/01/21 18:25 Labs: Lab Results 03/01/21 03/01/21 03/01/21 Range/Units 18:25 18:25 18:25 WBC 5.0 (4.8-10.8) X10*3/uL RBC 3.23 L (4.20-5.50) X10*6/uL Hgb 9.7 L (12.0-16.0) g/dl Hct 29.3 L (37.0-47.0) % MCV 90.7 (80.0-98.0) fL MCH 30.0 (27.0-33.0) pg MCHC 33.1 (31.0-35.0) g/dl RDW 12.2 (11.0-16.0) % Plt Count TNP MPV 11.1 (9.4-12.3) fL Immature Gran % (Auto) 0.2 (0.0-0.4) % Neut % (Auto) 49.0 (45-73) % Lymph % (Auto) 35.5 (20-40) % Hernando % (Auto) 9.3 (2-11) % Eos % (Auto) 5.0 H (0-4) % Baso % (Auto) 1.0 (0-2) % Lymph # (Auto) 1.8 (1.2-4.9) X10*3/uL Hernando # (Auto) 0.5 (0.1-1.2) X10*3/uL Eos # (Auto) 0.3 (0.0-0.4) X10*3/uL Baso # (Auto) 0.1 (0.0-0.2) X10*3/uL Abs Immat Gran (auto) 0.01 (0.00-0.03) X10*3/uL Absolute Neuts (auto) 2.4 (2.0-8.3) x10*3/uL Absolute Nucleated RBC 0.000 (0.0-0.012) X10*3/uL Nucleated RBC % (auto) 0.0 (0.0-0.2) /100WBC Smear Tech's Comments VERIFIED PT 9.9 (9.9-13.0) SEC INR 0.9 (0.9-1.1) Sodium 140 (135-145) mmol/L Potassium 5.4 H (3.3-5.1) mmol/L Chloride 109 H (96-108) mmol/L Carbon Dioxide 20 L (22-29) mmol/L Anion Gap 16 (12-20) BUN 60 H (9-16) mg/dL Creatinine 4.03 H* (0.5-1.4) mg/dL Estim Creat Clear Calc 12.2 Estimated GFR 11 Random Glucose 157 H (60-115) mg/dL Calcium 9.2 (8.4-10.2) mg/dL Magnesium 2.4 (1.6-2.6) mg/dL Troponin I High Sens (<3.5-17.0) ng/L COVID-19 ([facility]) (Negative) COVID-19 Clin Com 03/01/21 03/01/21 Range/Units 18:25 21:46 WBC (4.8-10.8) X10*3/uL RBC (4.20-5.50) X10*6/uL Hgb (12.0-16.0) g/dl Hct (37.0-47.0) % MCV (80.0-98.0) fL MCH (27.0-33.0) pg MCHC (31.0-35.0) g/dl RDW (11.0-16.0) % Plt Count MPV (9.4-12.3) fL Immature Gran % (Auto) (0.0-0.4) % Neut % (Auto) (45-73) % Lymph % (Auto) (20-40) % Hernando % (Auto) (2-11) % Eos % (Auto) (0-4) % Baso % (Auto) (0-2) % Lymph # (Auto) (1.2-4.9) X10*3/uL Hernando # (Auto) (0.1-1.2) X10*3/uL Eos # (Auto) (0.0-0.4) X10*3/uL Baso # (Auto) (0.0-0.2) X10*3/uL Abs Immat Gran (auto) (0.00-0.03) X10*3/uL Absolute Neuts (auto) (2.0-8.3) x10*3/uL Absolute Nucleated RBC (0.0-0.012) X10*3/uL Nucleated RBC % (auto) (0.0-0.2) /100WBC Smear Tech's Comments PT (9.9-13.0) SEC INR (0.9-1.1) Sodium (135-145) mmol/L Potassium (3.3-5.1) mmol/L Chloride (96-108) mmol/L Carbon Dioxide (22-29) mmol/L Anion Gap (12-20) BUN (9-16) mg/dL Creatinine (0.5-1.4) mg/dL Estim Creat Clear Calc Estimated GFR Random Glucose (60-115) mg/dL Calcium (8.4-10.2) mg/dL Magnesium (1.6-2.6) mg/dL Troponin I High Sens 19.3 H (<3.5-17.0) ng/L COVID-19 ([facility]) Negative (Negative) COVID-19 Clin Com See Note ECG Data ECG #1: Attestation: I personally reviewed and interpreted this ECG as follows: Interpretation: Normal sinus rhythm heart rate 85 beats per minute normal axis normal intervals left block no acute ischemic changes Discharge Plan Discharge Clinical Impression: Acute renal failure Qualifiers: Acute renal failure type: unspecified Qualified Code(s): N17.9 - Acute kidney failure, unspecified Chest pain Qualifiers: Chest pain type: precordial pain Qualified Code(s): R07.2 - Precordial pain Patient Disposition: Admitted As Inpatient
[2021-03-01 18:35] LABS: Basophils Absolute Auto 0.1 X10*3/uL (0.0-0.2); Hemoglobin 9.7 g/dl (12.0-16.0); INTERNATIONAL NORM RATIO 0.9 (0.9-1.1); Imm Gran Abs Auto 0.01 X10*3/uL (0.00-0.03); Imm Gran Pct Auto 0.2 % (0.0-0.4); MANUAL DIFF FLAG SCAN; PLT CLUMP 1; Prothrombin Time 9.9 SEC (9.9-13.0); Red Blood Count 3.23 X10*6/uL (4.20-5.50); Red Cell Distribution Width 12.2 % (11.0-16.0); SCAN SMEAR FLAG 1
[2021-03-01 18:36] LABS: Eosinophils Absolute Auto 0.3 X10*3/uL (0.0-0.4); Hematocrit 29.3 % (37.0-47.0); Lymphocytes Absolute Auto 1.8 X10*3/uL (1.2-4.9); Lymphocytes Percent Auto 35.5 % (20-40); Mean Corpuscular HGB Conc 33.1 g/dl (31.0-35.0); Mean Corpuscular Volume 90.7 fL (80.0-98.0); Mean Platelet Volume 11.1 fL (9.4-12.3); Monocytes Absolute Auto 0.5 X10*3/uL (0.1-1.2); Monocytes Percent Auto 9.3 % (2-11); Neutrophils Absolute Auto 2.4 x10*3/uL (2.0-8.3)
[2021-03-01 18:50] LABS: Troponin-I High Sensitivity 19.3 ng/L (<3.5-17.0)
--- NOTE | 2021-03-01 18:58 | PC.NURSE ---
patient a&ox3, unable to obtain iv access but was able to get labs, hall monitor applied, nsr 80s, ekg performed.
[2021-03-01 18:59] LABS: Anion Gap 16 (12-20); Blood Urea Nitrogen 60 mg/dL (9-16); Calcium 9.2 mg/dL (8.4-10.2); Carbon Dioxide 20 mmol/L (22-29); Chloride 109 mmol/L (96-108); Creatinine Clr Calc Pharmacy 12.2; Estimated Glomerular Filt Rate 11; Glucose Random 157 mg/dL (60-115); Magnesium 2.4 mg/dL (1.6-2.6); Potassium 5.4 mmol/L (3.3-5.1); Sodium 140 mmol/L (135-145)
[2021-03-01 19:00] LABS: SLIDE REVIEW VERIFIED
[2021-03-01 19:56] VITALS: BP 137/63; PULSE 86; RESP 16; TEMP 36.6; O2SAT 99
[2021-03-01] MEDS: 0.9 % Sodium Chloride 1,000 ML 999 ML IV (20:36)
--- NOTE | 2021-03-01 20:38 | PC.NURSE ---
patient a&ox3, pt no c/o pain or discomfort, cafeteria monitor intact, vss, iv started by provider, ivf running per order
[2021-03-01 22:00] VITALS: BP 158/63; PULSE 77; RESP 22; O2SAT 98
[2021-03-01 22:17] LABS: COVID-19 Test Negative (Negative)
--- NOTE | 2021-03-01 22:30 | PC.NURSE ---
patient currently sleeping, daughter called and was updated, cardiac cath lab radiology technologist nsr, vss, will continue to monitor
--- NOTE | 2021-03-01 22:32 | PHA.MEDREC ---
Pharmacy Consult ? Medication Reconciliation Pharmacy has completed the medication reconciliation. list from Juaquin lucero at [place]
--- NOTE | 2021-03-01 22:41 | P.HPHOSP_ITS ---
History of Present Illness Date of Service: 03/01/21 Chief Complaint: chest pain 76-year-old female with a past medical history of hypertension, diabetes, peripheral vascular disease, chronic kidney disease, history of UTI, glaucoma, legally blind, anemia presented from the [facility] with a chief complaint of chest discomfort. Patient reports that she noted to have chest discomfort -tingling in nature loc ated in the center of the chest, no associated lightheaded dizziness. Mentioned that she also felt it tingling in her left arm; at the same time she had profuse sweating. Denies any fever chills cough. Reports her chest pain resolved the time of my interview. Denies any falls or trauma. Denies any numbness tingling or focal weakness. Review of all other systems is negative except mentioned above ER course: Per ER team patient noted to have normal EKG; troponins negative; on labs noted to have acute on chronic kidney injury. Admitted for further management. [facility] Medical History Anemia Blind CKD (chronic kidney disease) Coronary artery disease Diabetes Diabetic foot infection Essential hypertension PAD (peripheral artery disease) UTI due to Klebsiella species Pertinent family history: reviewed Social History Household Members: None Housing: [facility] Do you presently have visiting nurse or other home services: No Alcohol intake: never Patient Tobacco Use Status: Never used Tobacco Second Hand Smoke Exposure: No Use of substances other than those prescribed or required for medical reasons: No Advance Directives: No Advance Directives Information Provided: Yes service: No Current occupational status: disabled Meds Allergies Allergy/AdvReac Type Severity Reaction Status Date / Time No Known Allergies Allergy Verified 03/01/21 17:43 [No Known Allergies*] Active Medications: Current Medications Acetaminophen (Acetaminophen 325 Mg Tablet) 650 mg PO Q6H PRN PRN Reason: Pain, Mild (Pain Scale 1-3) Heparin Sodium (Porcine) (Heparin Sodium,Porcine 5,000 Unit/Ml Vial) 5,000 unit SUBCUT Q8H RAUL Sodium Chloride (Ns) 1,000 mls @ 50 mls/hr IVCONT .Q20H RAUL Melatonin (Melatonin 3 Mg Tablet) 6 mg PO BEDTIME PRN PRN Reason: Insomnia Pharmacy Consult (Consult Rx Perform Med Rec) 1 each MISCELLANE ONCE PRN PRN Reason: Consult order Senna (Sennosides 8.6 Mg Tablet) 17.2 mg PO BEDTIME PRN PRN Reason: Constipation Sodium Chloride (0.9 % Sodium Chloride Flush 3 Ml Syringe) 3 ml IVFLUSH QSHIFT [facility] Home Medications Medication Instructions Recorded Confirmed Last Taken Type atropine 1 % eye 1 drp 04/15/20 03/01/21 09/05/20 History drops OPHTHALMIC-LEFT TID prednisolone 1 drp 04/15/20 03/01/21 09/05/20 History acetate 1 % eye OPHTHALMIC-LEFT DAILY drops,suspension acetaminophen 500 1,000 mg PO Q8H 07/27/20 03/01/21 Unknown History mg tablet PRN calcitriol 0.25 0.25 mcg PO 07/27/20 03/01/21 Unknown History mcg capsule DAILY cyanocobalamin 1,000 mcg IM 07/27/20 03/01/21 07/18/20 History (vitamin B-12) QMONTH 1,000 mcg/mL injection kit glyburide 5 mg 5 mg PO DAILY 07/27/20 03/01/21 09/05/20 History tablet amlodipine 10 mg 10 mg PO DAILY 12/07/20 03/01/21 Unknown History tablet ascorbic acid 1,000 mg PO 03/01/21 03/01/21 Unknown History (vitamin C) 500 DAILY mg tablet aspirin 81 mg 81 mg PO DAILY 03/01/21 03/01/21 Unknown History chewable tablet benzalkonium 1 ea TOPICAL BID 03/01/21 03/01/21 Unknown History chloride 0.13 % lotion bisacodyl 10 mg 10 mg FL DAILY 03/01/21 03/01/21 Unknown History rectal PRN suppository cholecalciferol 50 mcg PO DAILY 03/01/21 03/01/21 Unknown History (vitamin D3) 25 mcg (1,000 unit) tablet ferrous sulfate 325 mg PO DAILY 03/01/21 03/01/21 Unknown History 325 mg (65 mg iron) tablet fluticasone 1 spray 03/01/21 03/01/21 Unknown History propionate 50 INTRANASAL DAILY mcg/actuation nasal spray,suspension magnesium 30 ml PO BEDTIME 03/01/21 03/01/21 Unknown History hydroxide 400 PRN mg/5 mL oral suspension (Milk of Magnesia) metoprolol 25 mg PO BID 03/01/21 03/01/21 Unknown History tartrate 25 mg tablet multivitamin 1 tab PO DAILY 03/01/21 03/01/21 Unknown History polyethylene 17 g PO DAILY 03/01/21 03/01/21 Unknown History glycol 3350 17 gram oral powder packet (Miralax) Physical Exam Verdana 4l Vital Signs and Narrative: Verdana 4d Verdana 4d Vital Signs: Verdana 4d Verdana 4Bd Last Vital Signs Verdana 4d Machine Sander New 4d Machine Sander New 4d Temp 97.9 F 03/01/21 19:56 Machine Sander New 4d Pulse 77 03/01/21 22:00 Machine Sander NewNew 4d Resp 22 H 03/01/21 22:00 BP 158/63 H 03/01/21 22:00 Pulse Ox 98 03/01/21 22:00 BMI result Body Mass Index 27.4 Gen: Appears be in no acute distress HEENT: NCAT, Moist mucosa. Eyes closed - mild yellow discharge noted on the tip of the eyelids; sclera are normal in color; Pulmonary: Vesicular breath sounds, fair air entry CVS: Normal S1-S2 Abdomen: BS+, Soft, Nontender Extremities: Warm well perfused Neuro: Alert and awake. Results Labs CBC and Chem 7: 03/01/21 18:25 03/01/21 18:25 Labs: Laboratory Results - last 24 hr 03/01/21 03/01/21 03/01/21 18:25 18:25 18:25 MCV 90.7 MCH 30.0 MCHC 33.1 RDW 12.2 Plt Count TNP MPV 11.1 Immature Gran % (Auto) 0.2 Neut % (Auto) 49.0 Lymph % (Auto) 35.5 [place] % (Auto) 9.3 Eos % (Auto) 5.0 H Baso % (Auto) 1.0 Lymph # (Auto) 1.8 [place] # (Auto) 0.5 Eos # (Auto) 0.3 Baso # (Auto) 0.1 Abs Immat Gran (auto) 0.01 Absolute Neuts (auto) 2.4 Absolute Nucleated RBC 0.000 Nucleated RBC % (auto) 0.0 Smear Tech's Comments VERIFIED PT 9.9 INR 0.9 Anion Gap 16 Estim Creat Clear Calc 12.2 Estimated GFR 11 Random Glucose 157 H Calcium 9.2 Magnesium 2.4 Troponin I High Sens COVID-19 (CHANTELLE) COVID-19 Clin Com 03/01/21 03/01/21 18:25 21:46 MCV MCH MCHC RDW Plt Count MPV Immature Gran % (Auto) Neut % (Auto) Lymph % (Auto) [place] % (Auto) Eos % (Auto) Baso % (Auto) Lymph # (Auto) [place] # (Auto) Eos # (Auto) Baso # (Auto) Abs Immat Gran (auto) Absolute Neuts (auto) Absolute Nucleated RBC Nucleated RBC % (auto) Smear Tech's Comments PT INR Anion Gap Estim Creat Clear Calc Estimated GFR Random Glucose Calcium Magnesium Troponin I High Sens 19.3 H COVID-19 (CHANTELLE) Negative COVID-19 Clin Com See Note Imaging Radiologist's Impressions: Impressions Chest X-Ray 03/01/21 18:38 IMPRESSION: No acute abnormality of the chest. Assessment and Plan (1) Acute kidney injury superimposed on CKD: Status: Acute (2) Chest pain: Status: Acute 76-year-old female with a past medical history of hypertension, diabetes, peripheral vascular disease, chronic kidney disease, history of UTI, glaucoma, legally blind, anemia presented from the [facility] with a chief complaint of chest discomfort. Noted to have following conditions Chest pain: Currently resolved. Initial troponin 19-> Repeat troponin also concern for reduced clearance given renal insufficiency. EKG nonischemic Telemetry Cycle cardiac enzymes Cardiology follow-up KRYSTYNA on CKD: Patient baseline creatinine around 2.9. On presentation patient's creatinine is 4.0. Nephrology follow-up Gentle IV fluids Avoid nephrotoxins Diabetes: Insulin sliding scale history of glaucoma: Continue home eye drops. Patient noted to have mild yellow discharged on the tip of the eyelids- sticking the eyelid; artificial tears/ Cleaning with Dry sterile water DVT prophylaxis: Subcu heparin Code status: Full code Quality Stroke Does the patient have a stroke diagnosis?: No VTE Prior VTE?: No VTE Risk Level:: Medical - low VTE Device Contraindication: Treatment Not Indicated VTE Drug Contraindication: N/A - Med Ordered
[2021-03-02] VITALS (11 sets, daily range): BP systolic 127–166; BP diastolic 57–69; PULSE 73–91; RESP 11–21; TEMP 36.7–36.9; O2SAT 96–99
[2021-03-02] MEDS: 0.9 % Sodium Chloride 1,000 ML 50 ML IVCONT ×2 (00:18→16:03)
[2021-03-02] MEDS: Sodium Polystyrene Sulfon/Sorb 15 GM/60 ML ORAL.SUSP 30 GM PO (03:30)
--- NOTE | 2021-03-02 03:30 | PC.NURSE ---
Assumed care of pt
[2021-03-02] MEDS: Heparin Sodium,Porcine 5,000 UNIT/ML VIAL 5000 UNIT SUBCUT ×3 (05:55→22:41)
[2021-03-02] MEDS: Acetaminophen 325 MG TABLET 650 MG PO (05:58)
--- NOTE | 2021-03-02 06:22 | PC.NURSE ---
Pt medicated per MAR Pt tolerated well Pt placed on bedpan with medical radiation tech Pt cleaned and dried Pt assisted at position of comfort Will continue to monitor
[2021-03-02 07:33] LABS: MANUAL DIFF FLAG NO
[2021-03-02 07:35] LABS: Basophils Absolute Auto 0.1 X10*3/uL (0.0-0.2); Eosinophils Absolute Auto 0.2 X10*3/uL (0.0-0.4); Eosinophils Percent Auto 4.7 % (0-4); Hematocrit 28.1 % (37.0-47.0); Hemoglobin 9.2 g/dl (12.0-16.0); Imm Gran Abs Auto 0.01 X10*3/uL (0.00-0.03); Imm Gran Pct Auto 0.2 % (0.0-0.4); Lymphocytes Absolute Auto 1.7 X10*3/uL (1.2-4.9); Lymphocytes Percent Auto 33.7 % (20-40); Mean Corpuscular HGB Conc 32.7 g/dl (31.0-35.0); Mean Corpuscular Hemoglobin 30.3 pg (27.0-33.0); Mean Corpuscular Volume 92.4 fL (80.0-98.0); Mean Platelet Volume 10.1 fL (9.4-12.3); Monocytes Absolute Auto 0.5 X10*3/uL (0.1-1.2); Monocytes Percent Auto 8.9 % (2-11); Neutrophils Absolute Auto 2.6 x10*3/uL (2.0-8.3); Neutrophils Percent Auto 51.5 % (45-73); Platelet Count 198 X10*3/uL (160-400); Red Blood Count 3.04 X10*6/uL (4.20-5.50); Red Cell Distribution Width 12.4 % (11.0-16.0); White Blood Count 5.1 X10*3/uL (4.8-10.8)
[2021-03-02 07:52] LABS: Anion Gap 15 (12-20); Blood Urea Nitrogen 58 mg/dL (9-16); Calcium 9.2 mg/dL (8.4-10.2); Carbon Dioxide 22 mmol/L (22-29); Chloride 111 mmol/L (96-108); Creatinine Clr Calc Pharmacy 12.8; Estimated Glomerular Filt Rate 11; Glucose Random 123 mg/dL (60-115); Potassium 4.8 mmol/L (3.3-5.1); Sodium 143 mmol/L (135-145)
--- NOTE | 2021-03-02 08:03 | PC.NURSE ---
Pt received from night cleaner: Pt AOX4 and offers no complaints at this time. NSR noted and lungs clear. Pt abd soft and non-tender Pending cardiology and nephrology consults.
[2021-03-02] MEDS: Cholecalciferol (Vitamin D3) 25 MCG TABLET 50 MCG PO (08:26)
[2021-03-02] MEDS: Ascorbic Acid 500 MG TABLET 1000 MG PO (08:26)
[2021-03-02] MEDS: Metoprolol Tartrate 25 MG TABLET PO (08:26)
[2021-03-02] MEDS: Ferrous Sulfate 324 MG TABLET.DR PO (08:27)
[2021-03-02] MEDS: Aspirin 81 MG TAB.CHEW PO (08:27)
[2021-03-02] MEDS: Multivitamin TABLET 1 TAB PO (08:27)
[2021-03-02] MEDS: calcitrioL 0.25 MCG CAPSULE PO (08:29)
[2021-03-02] MEDS: Fluticasone Propionate Nasal 16 GM SPRAY 1 SPRAY NOSTRIL-B (08:34)
[2021-03-02] MEDS: Atropine Sulfate 1 % Ophth Sol 2 ML BOTTLE 1 DROP EYE-BOTH ×3 (10:37→22:03)
[2021-03-02] MEDS: prednisoLONE Acetate 1 % Oph Susp 5 ML DRPBTL 1 DROP EYE-BOTH ×3 (10:38→22:03)
[2021-03-02] MEDS: timoloL maleate 0.5 % Oph Sol 5 ML DRBTL 1 DROP EYE-RIGHT (11:11)
[2021-03-02 11:19] LABS: Troponin-I High Sensitivity 15.1 ng/L (<3.5-17.0)
[2021-03-02] MEDS: glyBURIDE 5 MG TABLET PO (13:01)
--- NOTE | 2021-03-02 13:10 | P.PNIM_ITS ---
Subjective Subjective Date of Service: 03/03/21 Interval History: f/u on chest pain, and KRYSTYNA, chest pain is better Review of Systems chest pain, no sob Physical Exam Vital Signs: Vital Signs: Last Vital Signs Temp 98.0 F 03/02/21 07:35 Pulse 79 03/02/21 11:02 Resp 20 03/02/21 11:02 BP 163/62 H 03/02/21 11:02 Pulse Ox 97 03/02/21 11:02 BMI result Body Mass Index 27.4 Const: Other: General: AO X 3, no acute distress Resp: CTA bilateral CVS: S1,S2,RRR GI: +BS, NT, no distention Skin: No rash Neuro: motor grossly intact Psych: appropriate affect Objective Data Active Medications Acetaminophen (Acetaminophen 325 Mg Tablet) 650 mg PO Q6H PRN PRN Reason: Pain, Mild (Pain Scale 1-3) Last Admin: 03/02/21 05:58 Dose: 650 mg Documented by: CONSUELO Acetaminophen (Acetaminophen 325 Mg Tablet) 975 mg PO Q8H PRN PRN Reason: Pain (Scale Score 1-3) Ascorbic Acid (Ascorbic Acid 500 Mg Tablet) 1,000 mg PO DAILY [facility] Last Admin: 03/02/21 08:26 Dose: 500 mg Documented by: REBEL Aspirin (Aspirin 81 Mg Tab.Chew) 81 mg PO DAILY [facility] Last Admin: 03/02/21 08:27 Dose: 81 mg Documented by: REBEL Atropine Sulfate (Atropine Sulfate 1 % Ophth Jacki 2 Ml Bottle) 1 drop EYE-BOTH TID [facility] Last Admin: 03/02/21 10:37 Dose: 1 drop Documented by: REBEL Bisacodyl (Bisacodyl 10 Mg Supp.Rect) 10 mg UT DAILY PRN PRN Reason: Constipation Calcitriol (Calcitriol 0.25 Mcg Capsule) 0.25 mcg PO DAILY [facility] Last Admin: 03/02/21 08:29 Dose: 0.25 mcg Documented by: REBEL Cyanocobalamin (Cyanocobalamin (Vitamin B-12) 1,000 Mcg/Ml Vial) 1,000 mcg IM Q28D@0900 [facility] Ferrous Sulfate (Ferrous Sulfate 324 Mg Tablet.Dr) 324 mg PO DAILY [facility] Last Admin: 03/02/21 08:27 Dose: 324 mg Documented by: REBEL Fluticasone Propionate (Fluticasone Propionate Nasal 16 Gm [place]) 1 spray NOSTRIL-B DAILY [facility] Last Admin: 03/02/21 08:34 Dose: 1 spray Documented by: REBEL Glyburide (Glyburide 5 Mg Tablet) 5 mg PO DAILY [facility] Last Admin: 03/02/21 13:01 Dose: 5 mg Documented by: REBEL Heparin Sodium (Porcine) (Heparin Sodium,Porcine 5,000 Unit/Ml Vial) 5,000 unit SUBCUT Q8H [facility] Last Admin: 03/02/21 05:55 Dose: 5,000 unit Documented by: CONSUELO Sodium Chloride (Ns) 1,000 mls @ 50 mls/hr IVCONT .Q20H [facility] Last Admin: 03/02/21 00:18 Dose: 50 mls/hr Documented by: HERMILA Magnesium Hydroxide (Milk Of Magnesia 30 Ml Oral.Susp) 30 ml PO BEDTIME PRN PRN Reason: Constipation Melatonin (Melatonin 3 Mg Tablet) 6 mg PO BEDTIME PRN PRN Reason: Insomnia Metoprolol Tartrate (Metoprolol Tartrate 25 Mg Tablet) 25 mg PO BID [facility]; Protocol Last Admin: 03/02/21 08:26 Dose: 25 mg Documented by: REBEL Multivitamins/Vitamin C (Multivitamin Tablet) 1 tab PO DAILY [facility] Last Admin: 03/02/21 08:27 Dose: 1 tab Documented by: REBEL Pharmacy Consult (Consult Rx Perform Med Rec) 1 each MISCELLANE ONCE PRN PRN Reason: Consult order Polyethylene Glycol (Polyethylene Glycol 3350 17 Gm Powd.Pack) 17 gm PO DAILY [facility] Last Admin: 03/02/21 08:33 Dose: Not Given Documented by: REBEL Non-Admin Reason: Patient Refused Prednisolone Acetate (Prednisolone Acetate 1 % Oph Susp 5 Ml Drpbtl) 1 drop EYE-BOTH TID [facility] Last Admin: 03/02/21 10:38 Dose: 1 drop Documented by: REBEL Senna (Sennosides 8.6 Mg Tablet) 17.2 mg PO BEDTIME PRN PRN Reason: Constipation Sodium Chloride (0.9 % Sodium Chloride Flush 3 Ml Syringe) 3 ml IVFLUSH QSHIFT [facility] Last Admin: 03/02/21 07:31 Dose: Not Given Documented by: REBEL Non-Admin Reason: Med Not Available Timolol Maleate (Timolol Maleate 0.5 % Oph Jacki 5 Ml Drbtl) 1 drop EYE-RIGHT DAILY [facility] Last Admin: 03/02/21 11:11 Dose: 1 drop Documented by: REBEL Vitamin D (Cholecalciferol (Vitamin D3) 25 Mcg Tablet) 50 mcg PO DAILY [facility] Last Admin: 03/02/21 08:26 Dose: 25 mcg Documented by: REBEL Labs CBC & Chem 7: 03/02/21 07:04 03/03/21 06:44 Labs: Laboratory Results - last 24 hr 03/01/21 03/01/21 03/01/21 18:25 18:25 18:25 MCV 90.7 MCH 30.0 MCHC 33.1 RDW 12.2 Plt Count TNP MPV 11.1 Immature Gran % (Auto) 0.2 Neut % (Auto) 49.0 Lymph % (Auto) 35.5 [place] % (Auto) 9.3 Eos % (Auto) 5.0 H Baso % (Auto) 1.0 Lymph # (Auto) 1.8 [place] # (Auto) 0.5 Eos # (Auto) 0.3 Baso # (Auto) 0.1 Abs Immat Gran (auto) 0.01 Absolute Neuts (auto) 2.4 Absolute Nucleated RBC 0.000 Nucleated RBC % (auto) 0.0 Smear Tech's Comments VERIFIED PT 9.9 INR 0.9 Anion Gap 16 Estim Creat Clear Calc 12.2 Estimated GFR 11 Random Glucose 157 H Calcium 9.2 Magnesium 2.4 Troponin I High Sens COVID-19 ([facility]) COVID-19 Clin Com 03/01/21 03/01/21 03/02/21 18:25 21:46 07:04 MCV 92.4 MCH 30.3 MCHC 32.7 RDW 12.4 Plt Count 198 MPV 10.1 Immature Gran % (Auto) 0.2 Neut % (Auto) 51.5 Lymph % (Auto) 33.7 [place] % (Auto) 8.9 Eos % (Auto) 4.7 H Baso % (Auto) 1.0 Lymph # (Auto) 1.7 [place] # (Auto) 0.5 Eos # (Auto) 0.2 Baso # (Auto) 0.1 Abs Immat Gran (auto) 0.01 Absolute Neuts (auto) 2.6 Absolute Nucleated RBC 0.000 Nucleated RBC % (auto) 0.0 Smear Tech's Comments PT INR Anion Gap Estim Creat Clear Calc Estimated GFR Random Glucose Calcium Magnesium Troponin I High Sens 19.3 H COVID-19 ([facility]) Negative COVID-19 Clin Com See Note 03/02/21 03/02/21 07:04 08:23 MCV MCH MCHC RDW Plt Count MPV Immature Gran % (Auto) Neut % (Auto) Lymph % (Auto) [place] % (Auto) Eos % (Auto) Baso % (Auto) Lymph # (Auto) [place] # (Auto) Eos # (Auto) Baso # (Auto) Abs Immat Gran (auto) Absolute Neuts (auto) Absolute Nucleated RBC Nucleated RBC % (auto) Smear Tech's Comments PT INR Anion Gap 15 Estim Creat Clear Calc 12.8 Estimated GFR 11 Random Glucose 123 H Calcium 9.2 Magnesium Troponin I High Sens 15.1 COVID-19 ([facility]EL[facility]) COVID-19 Clin Com Assessment and Plan (1) Normocytic anemia: Status: Acute (2) Diabetes: Status: Acute (3) PAD (peripheral artery disease): Status: Acute (4) Constipation: Status: Acute (5) Osteomyelitis of great toe of right foot: Status: Resolved (6) Acute kidney injury: Status: Resolved Assessment and Plan: 76-year-old female with a past medical history of hypertension, diabetes, peripheral vascular disease, chronic kidney disease, history of UTI, glaucoma, legally blind, anemia, abnormal stress test in April 2020 here with chest pain and found to have KRYSTYNA #Chest pain:? Currently resolved.?cardiology advises conservative management #KRYSTYNA on CKD 5:? IVF and awaiting Nephrology comments #Diabetes:? Insulin sliding scale, glyburide # normocytic anemia/Anemia of chronic disease, H/H is stable. -procrit on outpatient basis # B12 deficiency - on IM repletion monthly # HTN--continue home BP meds amlodipine + metoprolol DVT prophylaxis--heparin Quality Stroke Does the patient have a stroke diagnosis?: No VTE Prior VTE?: No VTE Risk Level:: Medical - low VTE Device Contraindication: Treatment Not Indicated VTE Drug Contraindication: N/A - Med Ordered
--- NOTE | 2021-03-02 14:35 | P.CONCA_ITS ---
History of Present Illness History of Present Illness Date of Service: 03/02/21 Requesting physician: Nick Castro Chief complaint: Chest Pain Narrative: 76-year-old female with multiple risk factors for coronary artery disease as well as abnormal stress test in the past showing transient ischemic dilatation pointing to her multivessel disease. 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 She is legally blind and is currently in a nursing facility. She had a tingling sensation her arm which she has been experiencing for long time along with some tingling sensation over the left side of her chest. With these symptoms she presented to [facility]. Her troponin levels were 19 and 15. EKG personally reviewed by me showed sinus rhythm with left anterior fascicular block QTC of 464 milliseconds. This was unchanged compared to before. She has not had any cardiac sounding chest discomfort here. Blood pressure is elevated. [facility] Past Medical History Medical History Anemia Blind CKD (chronic kidney disease) Coronary artery disease Diabetes Diabetic foot infection Essential hypertension PAD (peripheral artery disease) UTI due to Klebsiella species Social History Social History Household Members: None Housing: [place]way Do you presently have visiting nurse or other home services: No Alcohol intake: never Patient Tobacco Use Status: Never used Tobacco Second Hand Smoke Exposure: No Use of substances other than those prescribed or required for medical reasons: No Advance Directives: No Advance Directives Information Provided: Yes service: No Current occupational status: disabled Meds Allergies Allergy/AdvReac Type Severity Reaction Status Date / Time No Known Allergies Allergy Verified 03/01/21 17:43 [No Known Allergies*] Active Medications: Current Medications Acetaminophen (Acetaminophen 325 Mg Tablet) 650 mg PO Q6H PRN PRN Reason: Pain, Mild (Pain Scale 1-3) Last Admin: 03/02/21 05:58 Dose: 650 mg Documented by: Acetaminophen (Acetaminophen 325 Mg Tablet) 975 mg PO Q8H PRN PRN Reason: Pain (Scale Score 1-3) Ascorbic Acid (Ascorbic Acid 500 Mg Tablet) 1,000 mg PO DAILY RAUL Last Admin: 03/02/21 08:26 Dose: 500 mg Documented by: Aspirin (Aspirin 81 Mg Tab.Chew) 81 mg PO DAILY [facility] Last Admin: 03/02/21 08:27 Dose: 81 mg Documented by: Atropine Sulfate (Atropine Sulfate 1 % Ophth Jacki 2 Ml Bottle) 1 drop EYE-BOTH TID [facility] Last Admin: 03/02/21 10:37 Dose: 1 drop Documented by: Bisacodyl (Bisacodyl 10 Mg Supp.Rect) 10 mg [place] DAILY PRN PRN Reason: Constipation Calcitriol (Calcitriol 0.25 Mcg Capsule) 0.25 mcg PO DAILY [facility] Last Admin: 03/02/21 08:29 Dose: 0.25 mcg Documented by: Cyanocobalamin (Cyanocobalamin (Vitamin B-12) 1,000 Mcg/Ml Vial) 1,000 mcg IM Q28D@0900 [facility] Ferrous Sulfate (Ferrous Sulfate 324 Mg Tablet.Dr) 324 mg PO DAILY [facility] Last Admin: 03/02/21 08:27 Dose: 324 mg Documented by: Fluticasone Propionate (Fluticasone Propionate Nasal 16 Gm [place]) 1 spray NOSTRIL-B DAILY [facility] Last Admin: 03/02/21 08:34 Dose: 1 spray Documented by: Glyburide (Glyburide 5 Mg Tablet) 5 mg PO DAILY [facility] Last Admin: 03/02/21 13:01 Dose: 5 mg Documented by: Heparin Sodium (Porcine) (Heparin Sodium,Porcine 5,000 Unit/Ml Vial) 5,000 unit SUBCUT Q8H [facility] Last Admin: 03/02/21 05:55 Dose: 5,000 unit Documented by: Sodium Chloride (Ns) 1,000 mls @ 50 mls/hr IVCONT .Q20H [facility] Last Admin: 03/02/21 00:18 Dose: 50 mls/hr Documented by: Magnesium Hydroxide (Milk Of Magnesia 30 Ml Oral.Susp) 30 ml PO BEDTIME PRN PRN Reason: Constipation Melatonin (Melatonin 3 Mg Tablet) 6 mg PO BEDTIME PRN PRN Reason: Insomnia Metoprolol Tartrate (Metoprolol Tartrate 25 Mg Tablet) 25 mg PO BID [facility]; Protocol Last Admin: 03/02/21 08:26 Dose: 25 mg Documented by: Multivitamins/Vitamin C (Multivitamin Tablet) 1 tab PO DAILY [facility] Last Admin: 03/02/21 08:27 Dose: 1 tab Documented by: Pharmacy Consult (Consult Rx Perform Med Rec) 1 each MISCELLANE ONCE PRN PRN Reason: Consult order Polyethylene Glycol (Polyethylene Glycol 3350 17 Gm Powd.Pack) 17 gm PO DAILY [facility] Last Admin: 03/02/21 08:33 Dose: Not Given Documented by: Prednisolone Acetate (Prednisolone Acetate 1 % Oph Susp 5 Ml Drpbtl) 1 drop EYE-BOTH TID [facility] Last Admin: 03/02/21 10:38 Dose: 1 drop Documented by: Senna (Sennosides 8.6 Mg Tablet) 17.2 mg PO BEDTIME PRN PRN Reason: Constipation Sodium Chloride (0.9 % Sodium Chloride Flush 3 Ml Syringe) 3 ml IVFLUSH QSHIFT [facility] Last Admin: 03/02/21 07:31 Dose: Not Given Documented by: Timolol Maleate (Timolol Maleate 0.5 % Oph Jacki 5 Ml Drbtl) 1 drop EYE-RIGHT DAILY [facility] Last Admin: 03/02/21 11:11 Dose: 1 drop Documented by: Vitamin D (Cholecalciferol (Vitamin D3) 25 Mcg Tablet) 50 mcg PO DAILY [facility] Last Admin: 03/02/21 08:26 Dose: 25 mcg Documented by: Home Medications Medication Instructions Recorded Confirmed Last Taken Type atropine 1 % eye drops 1 drp OPHTHALMIC (EYE) TID 04/15/20 03/02/21 09/05/20 History prednisolone acetate 1 % eye 1 drp OPHTHALMIC (EYE) TID 04/15/20 03/02/21 09/05/20 History drops,suspension acetaminophen 500 mg tablet 1,000 mg PO Q8H PRN 07/27/20 03/01/21 Unknown History calcitriol 0.25 mcg capsule 0.25 mcg PO DAILY 07/27/20 03/01/21 Unknown History cyanocobalamin (vitamin B-12) 1,000 mcg IM QMONTH 07/27/20 03/01/21 07/18/20 History 1,000 mcg/mL injection kit glyburide 5 mg tablet 5 mg PO DAILY 07/27/20 03/01/21 09/05/20 History amlodipine 10 mg tablet 10 mg PO DAILY 12/07/20 03/01/21 Unknown History ascorbic acid (vitamin C) 500 mg 1,000 mg PO DAILY 03/01/21 03/01/21 Unknown History tablet aspirin 81 mg chewable tablet 81 mg PO DAILY 03/01/21 03/01/21 Unknown History benzalkonium chloride 0.13 % lotion 1 ea TOPICAL BID 03/01/21 03/01/21 Unknown History bisacodyl 10 mg rectal suppository 10 mg [place] DAILY PRN 03/01/21 03/01/21 Unknown History cholecalciferol (vitamin D3) 25 50 mcg PO DAILY 03/01/21 03/01/21 Unknown History mcg (1,000 unit) tablet ferrous sulfate 325 mg (65 mg 325 mg PO DAILY 03/01/21 03/01/21 Unknown History iron) tablet fluticasone propionate 50 1 spray INTRANASAL DAILY 03/01/21 03/01/21 Unknown History mcg/actuation nasal spray,suspension magnesium hydroxide 400 mg/5 mL 30 ml PO BEDTIME PRN 03/01/21 03/01/21 Unknown History oral suspension (Milk of Magnesia) metoprolol tartrate 25 mg tablet 25 mg PO BID 03/01/21 03/01/21 Unknown History multivitamin 1 tab PO DAILY 03/01/21 03/01/21 Unknown History polyethylene glycol 3350 17 gram 17 g PO DAILY 03/01/21 03/01/21 Unknown History oral powder packet (Miralax) timolol maleate 0.25 % eye drops 1 drp OPHTHALMIC-RIGHT DAILY 03/02/21 03/02/21 Unknown History Physical Exam Vital Signs: Vital Signs: Last Vital Signs Temp 98.0 F 03/02/21 07:35 Pulse 79 03/02/21 11:02 Resp 20 03/02/21 11:02 BP 163/62 H 03/02/21 11:02 Pulse Ox 97 03/02/21 11:02 BMI result Body Mass Index 27.4 GENERAL APPEARANCE: in no acute distress, pleasant. NECK: no carotid bruit, no jugular venous distention. SKIN: no suspicious lesions, warm and dry. HEART: no murmurs, regular rate and rhythm. LUNGS: clear to auscultation bilaterally. ABDOMEN: soft, nontender. EXTREMITIES: no edema. PERIPHERAL PULSES: equal. NEUROLOGIC: No gross deficits, AAO X 3. Legally blind. Objective Labs and Meds Result diagrams: 03/02/21 07:04 03/02/21 07:04 Lab results: Laboratory Results - last 24 hr 03/01/21 03/01/21 03/01/21 18:25 18:25 18:25 WBC 5.0 RBC 3.23 L Hgb 9.7 L Hct 29.3 L MCV 90.7 MCH 30.0 MCHC 33.1 RDW 12.2 Plt Count TNP MPV 11.1 Immature Gran % (Auto) 0.2 Neut % (Auto) 49.0 Lymph % (Auto) 35.5 [place] % (Auto) 9.3 Eos % (Auto) 5.0 H Baso % (Auto) 1.0 Lymph # (Auto) 1.8 [place] # (Auto) 0.5 Eos # (Auto) 0.3 Baso # (Auto) 0.1 Abs Immat Gran (auto) 0.01 Absolute Neuts (auto) 2.4 Absolute Nucleated RBC 0.000 Nucleated RBC % (auto) 0.0 Smear Tech's Comments VERIFIED PT 9.9 INR 0.9 Sodium 140 Potassium 5.4 H Chloride 109 H Carbon Dioxide 20 L Anion Gap 16 BUN 60 H Creatinine 4.03 H* Estim Creat Clear Calc 12.2 Estimated GFR 11 Random Glucose 157 H Calcium 9.2 Magnesium 2.4 Troponin I High Sens COVID-19 (CHANTELLE) COVID-[employer] 03/01/21 03/01/21 03/02/21 18:25 21:46 07:04 WBC 5.1 RBC 3.04 L Hgb 9.2 L Hct 28.1 L MCV 92.4 MCH 30.3 MCHC 32.7 RDW 12.4 Plt Count 198 MPV 10.1 Immature Gran % (Auto) 0.2 Neut % (Auto) 51.5 Lymph % (Auto) 33.7 [place] % (Auto) 8.9 Eos % (Auto) 4.7 H Baso % (Auto) 1.0 Lymph # (Auto) 1.7 [place] # (Auto) 0.5 Eos # (Auto) 0.2 Baso # (Auto) 0.1 Abs Immat Gran (auto) 0.01 Absolute Neuts (auto) 2.6 Absolute Nucleated RBC 0.000 Nucleated RBC % (auto) 0.0 Smear Tech's Comments PT INR Sodium Potassium Chloride Carbon Dioxide Anion Gap BUN Creatinine Estim Creat Clear Calc Estimated GFR Random Glucose Calcium Magnesium Troponin I High Sens 19.3 H COVID-19 (CHANTELLE) Negative COVID-[employer] [facility] Com See Note 03/02/21 03/02/21 07:04 08:23 WBC RBC Hgb Hct MCV MCH MCHC RDW Plt Count MPV Immature Gran % (Auto) Neut % (Auto) Lymph % (Auto) [place] % (Auto) Eos % (Auto) Baso % (Auto) Lymph # (Auto) [place] # (Auto) Eos # (Auto) Baso # (Auto) Abs Immat Gran (auto) Absolute Neuts (auto) Absolute Nucleated RBC Nucleated RBC % (auto) Smear Tech's Comments PT INR Sodium 143 Potassium 4.8 Chloride 111 H Carbon Dioxide 22 Anion Gap 15 BUN 58 H Creatinine 3.85 H Estim Creat Clear Calc 12.8 Estimated GFR 11 Random Glucose 123 H Calcium 9.2 Magnesium Troponin I High Sens 15.1 COVID-19 ([facility]ELLE) COVID-19 Clin Com Imaging Radiologist's impression: Impressions Chest X-Ray 03/01/21 18:38 IMPRESSION: No acute abnormality of the chest. Assessment and Plan (1) Chest pain: Qualifiers: Chest pain type: precordial pain Qualified Code(s): R07.2 - Precordial pain Status: Acute (2) Abnormal myocardial perfusion study: Status: Acute 76-year-old female presenting for atypical chest pain. EKG is not showing any dynamic changes. Troponins are also not elevated. She has chronic kidney disease and creatinine is 3.85 with a GFR of 11. She has previously undergone pharmacologic stress test which was abnormal and showed transient ischemic dilatation. I think the likely would that she has underlying coronary disease is high. Having said that she does not have anginal symptoms right now. I think she should be on baby aspirin. Blood pressure control is important for her and I think we need to control of blood pressure better. I think we medically manage her with her kidney disease right now because she is high risk to get on dialysis if we try to perform a diagnostic angiogram on her. Also with multivessel disease I am not sure she will be a good surgical candidate with all her comorbidities and current functional status. Thank you for allowing me to participate in the care of your patient. Please feel free to contact me if you have any questions. Procedures Date of Service Date of Service: 03/02/21
--- NOTE | 2021-03-02 15:42 | MHC.CM.PN ---
Addendum entered by Cynthia Coello 03/02/21 15:47: PER SAFFELL LIAISON, PT IS A BED HOLD WITH THEM Original Note: CM CONTACTED PTS DAUGHTER/HCP, MONICA JOHNSON [phone] WHO REPORTS THE PT HAS BEEN AT [facility] SHE REPORTS THE PT IS NOT OFFICIALLY LTC WITH THEM BUT THAT IS LIKELY TO BE THE PLAN SHE REPORTS THE PT IS STILL LISTED WITH [facility] IN [place] FOR PRIMARY CARE BUT SEES THE MD AT THE SNF MONICA IS THE PTS HCP, COPY IS ON FILE PTS MEDICARE RIGHTS WERE REVIEWED WITH MONICA VIA T/C, SHE REPORTS BEING VERY FAMILIAR WITH THEM AND ASKS THAT THEY BE LEFT AT PTS BEDSIDE. A COPY WAS ALSO SENT TO [facility] CURRENT DC PLAN IS RETURN TO [facility] VIA BLS
--- NOTE | 2021-03-02 17:15 | CONS_ITS ---
DATE OF SERVICE: 03/02/2021 REASON FOR CONSULTATION: I was asked to see the patient to assist in evaluation and management of patient's acute kidney injury on chronic kidney disease where her serum creatinine was as high as 4.0 on admission, whereas her baseline creatinine runs in the 2.5 to 3 range. HISTORY OF PRESENT ILLNESS: In summary, the patient is a 76-year-old female with a history of hypertension, diabetes, peripheral vascular disease, and stage 4 chronic kidney disease, recurrent urinary tract infections, legally blind, who was [facility] with episode of chest pain and feeling unwell. The patient states she had an episode of chest pain and sweating, which fortunately has resolved. Her hospital course has included IV fluids and her creatinine is gradually coming down. She is overall feeling better. PAST MEDICAL HISTORY: As noted above. MEDICATIONS: Her medications on admission are listed in the admitting notes. Her current medications are noted in the MAR. ALLERGIES: SHE HAS NO KNOWN DRUG ALLERGIES. SOCIAL HISTORY: She is a nonsmoker, nondrinker. No illicit drug use and denies taking NSAIDs. FAMILY HISTORY: Noncontributory. REVIEW OF SYSTEMS: As noted above. PHYSICAL EXAMINATION: VITAL SIGNS: Blood pressure of 140/60 with a heart rate in the 70s. HEAD: Atraumatic and normocephalic. NECK: Supple. Mucous membranes are moist. There is no JVD. LUNGS: Breath sounds bilaterally. CARDIAC: Regular rate and rhythm. ABDOMEN: Soft, nontender. Good bowel sounds. No CVA tenderness. EXTREMITIES: Show no edema. LABORATORY DATA: Labs from today show hemoglobin 9.2, hematocrit 28.1, white blood cell count of 5.1, platelet count 198. Sodium 143, potassium 4.8, chloride 111, bicarb 22, BUN 58, creatinine 3.85. As mentioned, her baseline creatinine is in the 2.5 to 3 range and on admission yesterday, her creatinine was 4.0. Calcium 9.2, mag 2.4. IMPRESSION: A 76-year-old diabetic, hypertensive, chronic kidney disease stage 4 patient admitted with episode of chest pain and acute kidney injury on advanced chronic kidney disease. 1. Acute kidney injury. It is unclear what precipitated the episode of acute kidney injury. The good news is that renal function seems to be gradually improving simply with gentle intravenous hydration. I suspect she has a component of renal hypoperfusion from dehydration playing a role. Depending on her clinical course, she may need further evaluation of her acute kidney injury, including further serologic and urine studies. 2. Advanced chronic kidney disease. Most consistent with underlying diabetic hypertensive renal disease. 3. Chest pain episode. She will need Cardiac evaluation. 4. Anemia. We will check iron studies and see whether she is a candidate for iron and/or EPO. SUGGESTIONS: At this time include continue routine medications. Cardiac evaluation. Continue gentle IV hydration. Avoid nephrotoxins. We will follow the patient closely with the team. MD LISA Jean/NEENA / [phone]
[2021-03-02] MEDS: Melatonin 3 MG TABLET 6 MG PO (21:17)
--- NOTE | 2021-03-02 22:10 | PC.NURSE ---
Assumed care of pt Pt resting on hospital bed. Pt c/o indigestion and nausea from tomato soup she ate for dinner. Dr. Herrera made aware who ordered zofran. Pt refused zofran stating I don't need to be taking so many pills and medications. Let me just sip on my velvet kurt and get rid of this gas. Pt medicated per APR Pt requesting only 1 tablet (3 mg) of melatonin. Pt refusing metoprolol. Pt stating I only take one of those a day. I don't want to be taking too much medications. Pt advised that BP is elevated and may continue to elevate without medication which will put her at risk. Pt states, I know but I just need to get settled and calm down. Sometimes I don't even take that at home. I don't need that now. Pt given blankets and belongings repositioned per request Will continue to monitor
--- NOTE | 2021-03-03 01:59 | PC.NURSE ---
Pt assisted to bedside commode with credentialing specialist Pt was able to stand and pivot to bedside commode Pt had large soft BM Pt cleaned and repositioned back on bed Pt tolerated well Will continue to monitor
[2021-03-03] MEDS: Heparin Sodium,Porcine 5,000 UNIT/ML VIAL 5000 UNIT SUBCUT ×3 (06:29→22:17)
[2021-03-03 06:33] VITALS: BP 165/66; PULSE 80; RESP 18; O2SAT 98
[2021-03-03 07:26] LABS: Anion Gap 11 (12-20); Blood Urea Nitrogen 46 mg/dL (9-16); Carbon Dioxide 25 mmol/L (22-29); Chloride 109 mmol/L (96-108); Creatinine Clr Calc Pharmacy 15.5; Estimated Glomerular Filt Rate 14; Glucose Random 66 mg/dL (60-115); Potassium 4.1 mmol/L (3.3-5.1); Sodium 141 mmol/L (135-145)
[2021-03-03 07:27] LABS: Iron 63 mcg/dL (30-160); Percent Iron Saturation 27 % (15-50); Total Iron Binding Capacity 237 mcg/dL (228-428); Unsaturated Iron Binding 174 ug/dL
[2021-03-03] MEDS: calcitrioL 0.25 MCG CAPSULE PO (08:20)
[2021-03-03] MEDS: Aspirin 81 MG TAB.CHEW PO (08:20)
[2021-03-03] MEDS: Metoprolol Tartrate 25 MG TABLET PO ×2 (08:20→22:16)
[2021-03-03] MEDS: Ferrous Sulfate 324 MG TABLET.DR PO (08:21)
[2021-03-03] MEDS: glyBURIDE 5 MG TABLET PO (08:21)
[2021-03-03] MEDS: Cholecalciferol (Vitamin D3) 25 MCG TABLET 50 MCG PO (08:21)
[2021-03-03] MEDS: Multivitamin TABLET 1 TAB PO (08:21)
[2021-03-03] MEDS: Acetaminophen 325 MG TABLET 650 MG PO ×2 (08:21→19:44)
[2021-03-03] MEDS: timoloL maleate 0.5 % Oph Sol 5 ML DRBTL 1 DROP EYE-RIGHT (08:22)
[2021-03-03] MEDS: prednisoLONE Acetate 1 % Oph Susp 5 ML DRPBTL 1 DROP EYE-BOTH ×2 (08:22→16:05)
[2021-03-03] MEDS: Atropine Sulfate 1 % Ophth Sol 2 ML BOTTLE 1 DROP EYE-BOTH ×2 (08:22→16:05)
[2021-03-03] MEDS: Ascorbic Acid 500 MG TABLET 1000 MG PO (08:36)
--- NOTE | 2021-03-03 13:48 | PM.PNNEP ---
Subjective Subjective Date of Service: 03/03/21 Principal diagnosis: KRYSTYNA CKD Interval history: Seen and examined, events noted Physical Exam Vital Signs: Vital Signs: Last Vital Signs Temp 98.2 F 03/02/21 21:18 Pulse 80 03/03/21 06:33 Resp 18 03/03/21 06:33 BP 165/66 H 03/03/21 06:33 Pulse Ox 98 03/03/21 06:33 BMI result Body Mass Index 27.4 Const: Other: General: AO X 3, no acute distress Resp: CTA bilateral CVS: S1,S2,RRR GI: +BS, NT, no distention Skin: No rash Neuro: motor grossly intact Psych: appropriate affect Objective Data Labs CBC & Chem 7: 03/02/21 07:04 03/03/21 06:44 Labs: Laboratory Results - last 24 hr 03/03/21 03/03/21 06:44 06:44 Sodium 141 Potassium 4.1 Chloride 109 H Carbon Dioxide 25 Anion Gap 11 L BUN 46 H Creatinine 3.19 H Estim Creat Clear Calc 15.5 Estimated GFR 14 Random Glucose 66 Calcium 9.0 Iron 63 TIBC 237 % Saturation 27 Unsat Iron Binding 174 Procedures Date of Service Date of Service: 03/03/21 Assessment & Plan Assessment and plan (1) Chest pain: Status: Acute (2) Abnormal myocardial perfusion study: Status: Acute Assessment and Plan: 76-year-old female presenting for atypical chest pain and KRYSTYNA on adv CKD on backdropof multiple stble chronic med probs 1. KRYSTYNA: cont improvement with IVF; peak SCr was 4.0 and now clos eto BSL 2. CKD 4: SCr 2.5-3.0; most c/w DN/HTN renal dis 3. CP: w/u per hosp docs noted 4. Anemia: Fe and epo def; r/o dysproteinemia 5. CKD chronic issues: check PTH REC: d/c IVF now that renal func close to bsl; start po fe; check serum immunofixation, PTH Time Spent With Patient Time: Total time spent is greater than 50% in coordination of care (as documented) at patient's floor/unit and/or counseling patient: Progress Note: Quality Stroke Does the patient have a stroke diagnosis?: No
[2021-03-03 13:56] VITALS: BP 161/65; PULSE 72; RESP 14; O2SAT 99
[2021-03-03 16:00] VITALS: BP 175/69; PULSE 72; RESP 18; TEMP 36.3; O2SAT 96
[2021-03-03] MEDS: 0.9 % Sodium Chloride Flush 3 ML SYRINGE IVFLUSH (16:04)
[2021-03-03 18:20] VITALS: BP 170/72; PULSE 70; RESP 16; TEMP 36.6; O2SAT 99
--- NOTE | 2021-03-03 18:45 | P.PNIM_ITS ---
Subjective Subjective Date of Service: 03/03/21 Interval History: f/u on renal failure, creatinine is slightly better Review of Systems chest pain, no sob Physical Exam Vital Signs: Vital Signs: Last Vital Signs Temp 97.9 F 03/03/21 18:20 Pulse 70 03/03/21 18:20 Resp 16 03/03/21 18:20 BP 170/72 H 03/03/21 18:20 Pulse Ox 99 03/03/21 18:20 BMI result Body Mass Index 27.4 Const: Other: General: AO X 3, no acute distress Resp: CTA bilateral CVS: S1,S2,RRR GI: +BS, NT, no distention Skin: No rash Neuro: motor grossly intact Psych: appropriate affect Objective Data Active Medications Acetaminophen (Acetaminophen 325 Mg Tablet) 650 mg PO Q6H PRN PRN Reason: Pain, Mild (Pain Scale 1-3) Last Admin: 03/03/21 08:21 Dose: 650 mg Documented by: DAVID Acetaminophen (Acetaminophen 325 Mg Tablet) 975 mg PO Q8H PRN PRN Reason: Pain (Scale Score 1-3) Ascorbic Acid (Ascorbic Acid 500 Mg Tablet) 1,000 mg PO DAILY [facility] Last Admin: 03/03/21 08:36 Dose: 1,000 mg Documented by: DAVID Aspirin (Aspirin 81 Mg Tab.Chew) 81 mg PO DAILY [facility] Last Admin: 03/03/21 08:20 Dose: 81 mg Documented by: DAVID Atropine Sulfate (Atropine Sulfate 1 % Ophth Jacki 2 Ml Bottle) 1 drop EYE-BOTH TID@0700,1200,1600 [facility] Last Admin: 03/03/21 16:05 Dose: 1 drop Documented by: DAVID Bisacodyl (Bisacodyl 10 Mg Supp.Rect) 10 mg [place] DAILY PRN PRN Reason: Constipation Calcitriol (Calcitriol 0.25 Mcg Capsule) 0.25 mcg PO DAILY [facility] Last Admin: 03/03/21 08:20 Dose: 0.25 mcg Documented by: DAVID Cyanocobalamin (Cyanocobalamin (Vitamin B-12) 1,000 Mcg/Ml Vial) 1,000 mcg IM Q28D@0900 [facility] Ferrous Sulfate (Ferrous Sulfate 324 Mg Tablet.) 324 mg PO DAILY [facility] Last Admin: 03/03/21 08:21 Dose: 324 mg Documented by: DAVID Fluticasone Propionate (Fluticasone Propionate Nasal 16 Gm [place]) 1 spray N OSTRIL-B DAILY [facility] Last Admin: 03/03/21 08:34 Dose: Not Given Documented by: DAVID Non-Admin Reason: Patient Refused Glyburide (Glyburide 5 Mg Tablet) 5 mg PO DAILY [facility] Last Admin: 03/03/21 08:21 Dose: 5 mg Documented by: DAVID Heparin Sodium (Porcine) (Heparin Sodium,Porcine 5,000 Unit/Ml Vial) 5,000 unit SUBCUT Q8H [facility] Last Admin: 03/03/21 14:19 Dose: 5,000 unit Documented by: DAVID Magnesium Hydroxide (Milk Of Magnesia 30 Ml Oral.Susp) 30 ml PO BEDTIME PRN PRN Reason: Constipation Melatonin (Melatonin 3 Mg Tablet) 6 mg PO BEDTIME PRN PRN Reason: Insomnia Last Admin: 03/02/21 21:17 Dose: 3 mg Documented by: CONSUELO Comments: Patient requesting only 3 mg of melatonin Metoprolol Tartrate (Metoprolol Tartrate 25 Mg Tablet) 25 mg PO BID [facility]; Protocol Last Admin: 03/03/21 08:20 Dose: 25 mg Documented by: DAVID Multivitamins/Vitamin C (Multivitamin Tablet) 1 tab PO DAILY [facility] Last Admin: 03/03/21 08:21 Dose: 1 tab Documented by: DAVID Pharmacy Consult (Consult Rx Perform Med Rec) 1 each MISCELLANE ONCE PRN PRN Reason: Consult order Polyethylene Glycol (Polyethylene Glycol 3350 17 Gm Powd.Pack) 17 gm PO DAILY [facility] Last Admin: 03/03/21 08:16 Dose: Not Given Documented by: DAVID Non-Admin Reason: Patient Refused Prednisolone Acetate (Prednisolone Acetate 1 % Oph Susp 5 Ml Drpbtl) 1 drop EYE-BOTH TID@0700,1200,1600 [facility] Last Admin: 03/03/21 16:05 Dose: 1 drop Documented by: DAVID Senna (Sennosides 8.6 Mg Tablet) 17.2 mg PO BEDTIME PRN PRN Reason: Constipation Sodium Chloride (0.9 % Sodium Chloride Flush 3 Ml Syringe) 3 ml IVFLUSH QSHIFT [facility] Last Admin: 03/03/21 16:04 Dose: 3 ml Documented by: DAVID Timolol Maleate (Timolol Maleate 0.5 % Oph Jacki 5 Ml Drbtl) 1 drop EYE-RIGHT DAILY@1200 RAUL Vitamin D (Cholecalciferol (Vitamin D3) 25 Mcg Tablet) 50 mcg PO DAILY [facility] Last Admin: 03/03/21 08:21 Dose: 50 mcg Documented by: DAVID Labs CBC & Chem 7: 03/02/21 07:04 03/03/21 06:44 Labs: Laboratory Results - last 24 hr 03/03/21 03/03/21 06:44 06:44 Anion Gap 11 L Estim Creat Clear Calc 15.5 Estimated GFR 14 Random Glucose 66 Calcium 9.0 Iron 63 TIBC 237 % Saturation 27 Unsat Iron Binding 174 Assessment and Plan (1) Normocytic anemia: Status: Acute (2) Diabetes: Status: Acute (3) PAD (peripheral artery disease): Status: Acute (4) Constipation: Status: Acute (5) Osteomyelitis of great toe of right foot: Status: Resolved (6) Acute kidney injury: Status: Resolved Assessment and Plan: 76-year-old female with a past medical history of hypertension, diabetes, peripheral vascular disease, chronic kidney disease, history of UTI, glaucoma, legally blind, anemia, abnormal stress test in April 2020 here with chest pain and found to have KRYSTYNA #Chest pain:? Currently resolved.?cardiology advises conservative management #KRYSTYNA on CKD 5:? IVF for one more day, repeat lab tomorrow and #Diabetes:? Insulin sliding scale, glyburide # normocytic anemia/Anemia of chronic disease, H/H is stable. -procrit on outpatient basis # B12 deficiency - on IM repletion monthly # HTN--continue home BP meds amlodipine + metoprolol likely dc tomorrow DVT prophylaxis--heparin Quality Stroke Does the patient have a stroke diagnosis?: No VTE Prior VTE?: No VTE Risk Level:: Medical - low VTE Device Contraindication: Treatment Not Indicated VTE Drug Contraindication: N/A - Med Ordered
--- NOTE | 2021-03-03 20:00 | PC.NURSE ---
Assumed care of pt at 1900. Pt resting in bed, in NAD, medicated per MAR for knee pain. Warm blanket provided. Call light at hand. Awaiting inpatient bed assignment
[2021-03-03 21:04] VITALS: BP 146/62; PULSE 77; RESP 15; TEMP 36.7; O2SAT 96
[2021-03-03] MEDS: Melatonin 3 MG TABLET 6 MG PO (22:17)
[2021-03-04 00:25] VITALS: PULSE 74; RESP 16; RESP 18; O2SAT 98
[2021-03-04 06:56] VITALS: BP 136/74; PULSE 74; RESP 16; TEMP 36.7; O2SAT 99
[2021-03-04] MEDS: Multivitamin TABLET 1 TAB PO (08:07)
[2021-03-04] MEDS: Ascorbic Acid 500 MG TABLET 1000 MG PO (08:07)
[2021-03-04] MEDS: Aspirin 81 MG TAB.CHEW PO (08:07)
[2021-03-04] MEDS: Metoprolol Tartrate 25 MG TABLET PO (08:07)
[2021-03-04] MEDS: Atropine Sulfate 1 % Ophth Sol 2 ML BOTTLE 1 DROP EYE-BOTH (08:07)
[2021-03-04] MEDS: Ferrous Sulfate 324 MG TABLET.DR PO (08:07)
[2021-03-04] MEDS: glyBURIDE 5 MG TABLET PO (08:07)
[2021-03-04] MEDS: Cholecalciferol (Vitamin D3) 25 MCG TABLET 50 MCG PO (08:07)
[2021-03-04] MEDS: timoloL maleate 0.5 % Oph Sol 5 ML DRBTL 1 DROP EYE-RIGHT (08:07)
[2021-03-04] MEDS: calcitrioL 0.25 MCG CAPSULE PO (08:07)
[2021-03-04] MEDS: Heparin Sodium,Porcine 5,000 UNIT/ML VIAL 5000 UNIT SUBCUT (08:08)
[2021-03-04] MEDS: prednisoLONE Acetate 1 % Oph Susp 5 ML DRPBTL 1 DROP EYE-BOTH (08:08)
[2021-03-04] MEDS: 0.9 % Sodium Chloride Flush 3 ML SYRINGE IVFLUSH (08:08)
[2021-03-04 08:17] LABS: Anion Gap 11 (12-20); Blood Urea Nitrogen 43 mg/dL (9-16); Calcium 8.7 mg/dL (8.4-10.2); Carbon Dioxide 25 mmol/L (22-29); Chloride 108 mmol/L (96-108); Creatinine Clr Calc Pharmacy 14.6; Estimated Glomerular Filt Rate 13; Glucose Random 64 mg/dL (60-115); Potassium 4.3 mmol/L (3.3-5.1); Sodium 140 mmol/L (135-145)
[2021-03-04 08:44] VITALS: BP 185/70; PULSE 85; RESP 16; TEMP 36.8; O2SAT 100
--- NOTE | 2021-03-04 11:56 | PM.PNNEP ---
Subjective Subjective Date of Service: 03/04/21 Principal diagnosis: KRYSTYNA CKD Interval history: Seen and examined, events noted Physical Exam Vital Signs: Vital Signs: Last Vital Signs Temp 98.2 F 03/04/21 08:44 Pulse 85 03/04/21 08:44 Resp 16 03/04/21 08:44 BP 185/70 H 03/04/21 08:44 Pulse Ox 100 03/04/21 08:44 BMI result Body Mass Index 27.4 Const: Other: General: AO X 3, no acute distress Resp: CTA bilateral CVS: S1,S2,RRR GI: +BS, NT, no distention Skin: No rash Neuro: motor grossly intact Psych: appropriate affect Objective Data Labs CBC & Chem 7: 03/02/21 07:04 03/04/21 07:25 Labs: Laboratory Results - last 24 hr 03/04/21 07:25 Sodium 140 Potassium 4.3 Chloride 108 Carbon Dioxide 25 Anion Gap 11 L BUN 43 H Creatinine 3.36 H Estim Creat Clear Calc 14.6 Estimated GFR 13 Random Glucose 64 Calcium 8.7 Procedures Date of Service Date of Service: 03/04/21 Assessment & Plan Assessment and plan (1) Chest pain: Status: Acute (2) Abnormal myocardial perfusion study: Status: Acute Assessment and Plan: 76-year-old female presenting for atypical chest pain and KRYSTYNA on adv CKD on backdropof multiple stble chronic med probs 1. KRYSTYNA: cont improvement with IVF; peak SCr was 4.0 and now clos eto BSL 2. CKD 4: SCr 2.5-3.0; most c/w DN/HTN renal dis 3. CP: w/u per hosp docs noted 4. Anemia: Fe and epo def; r/o dysproteinemia 5. CKD chronic issues: check PTH REC: start po fe; check serum immunofixation, PTH i will arrang outpt f/u with me once d/c'd Time Spent With Patient Time: Total time spent is greater than 50% in coordination of care (as documented) at patient's floor/unit and/or counseling patient: Progress Note: Quality Stroke Does the patient have a stroke diagnosis?: No
--- NOTE | 2021-03-04 12:04 | P.DS_ITS ---
DS: Providers Provider Date of Service: 03/04/21 Date of admission: 03/01/21 22:38 Primary care physician: Unknown Physician Consults: 03/01/21 22:38 Consult to Cardiology Routine Consulting Provider: Carson Almeida Reason for consultation: chest pain 03/01/21 22:40 Consult to Nephrology Routine Consulting Provider: Jayjay Bentley Reason for consultation: krystyna on ckd DS: Diagnosis Discharge Diagnosis (1) Chest pain: Status: Acute (2) Abnormal myocardial perfusion study: Status: Acute DS: Summary Hospital Course Hospital Course: Chief Complaint:? chest pain ?76-year-old female with a past medical history of hypertension, diabetes, peripheral vascular disease, chronic kidney disease, history of UTI, glaucoma, legally blind, anemia presented from the residential with a chief complaint of chest discomfort.? Patient reports that she noted to have chest discomfort -tingling in nature located in the center of the chest, no associated lightheaded dizziness.? Mentioned that she also felt it tingling in her left arm; at the same time she had profuse sweating.? Denies any fever chills cough.? Reports her chest pain resolved the time of my interview.? Denies any falls or trauma.? Denies any numbness tingling or focal weakness.? Hospital course: He was admitted with chest pain and noted to have increased in serum creatine above her baseline. Cardiac work was essentially unremarkable and cardilogy is planning no additional work up at this time and she has no further chest pain.. For reanla failure, her creatinine was up to 4.03 and was treated with IVF fluid with improvment in renal function and was followed by the nephrology service. Creatine today is 3.36 which is within her baseline of CKD 3 to 4 and will be followed on outpatient basis by Dr. Carey Time Spent with Patient Time attestation: Total time spent providing and/or coordinating discharge services: Discharge coordination time: Greater than 30 minutes Quality: Stroke Does the patient have a stroke diagnosis?: No Physical Exam Verdana 4l Vital Signs: Verdana 4d Verdana 4d Vital Signs: Verdana 4d Verdana 4Bd Last Vital Signs Verdana 4d Brick Offbearer New 4d Brick Offbearer New 4d Temp 98.2 F 03/04/21 08:44 Brick Offbearer New 4d Pulse 85 03/04/21 08:44 Brick Offbearer NewNew 4d Resp 16 03/04/21 08:44 BP 185/70 H 03/04/21 08:44 Pulse Ox 100 03/04/21 08:44 BMI result Body Mass Index 27.4 DS: Data Data Completed and Pending Labs on day of discharge: Laboratory Results - last 24 hr 03/04/21 07:25 Sodium 140 Potassium 4.3 Chloride 108 Carbon Dioxide 25 Anion Gap 11 L BUN 43 H Creatinine 3.36 H Estim Creat Clear Calc 14.6 Estimated GFR 13 Random Glucose 64 Calcium 8.7 Discharge Plan Discharge Anticipated Discharge Date/Time: 03/04/21 11:43 Patient Disposition: er SNF Discharge Diagnosis: Chest pain, KRYSTYNA Referrals: [facility] [Outside] - 1 Week Physician,Sommer J [Primary Care Provider] - 1 Week Discharge Medications: Continued prednisolone acetate 1 % drops,suspension 1 drp ophthalmic (eye) TID RF: 0 atropine 1 % drops 1 drp ophthalmic (eye) TID RF: 0 glyburide 5 mg Tablet 5 mg PO DAILY RF: 0 acetaminophen 500 mg Tablet 1,000 mg PO Q8H PRN (Reason: Pain (Scale Score 1-3)) RF: 0 calcitriol 0.25 mcg Capsule 0.25 mcg PO DAILY RF: 0 cyanocobalamin (vitamin B-12) 1,000 mcg/mL Kit 1,000 mcg IM QMONTH RF: 0 multivitamin Tablet 1 tab PO DAILY RF: 0 polyethylene glycol 3350 [Miralax] 17 gram Powder In Packet 17 g PO DAILY RF: 0 magnesium hydroxide [Milk of Magnesia] 400 mg/5 mL Suspension 30 ml PO BEDTIME PRN (Reason: Constipation) RF: 0 ascorbic acid (vitamin C) 500 mg Tablet 1,000 mg PO DAILY RF: 0 bisacodyl 10 mg Suppository 10 mg [place] DAILY PRN (Reason: Constipation) RF: 0 ferrous sulfate 325 mg (65 mg iron) Tablet 325 mg PO DAILY RF: 0 aspirin 81 mg Tablet,Chewable 81 mg PO DAILY RF: 0 fluticasone propionate [Flonase] 50 mcg/actuation [place],Suspension 1 spray INTRANASAL DAILY RF: 0 benzalkonium chloride 0.13 % Lotion 1 ea TOPICAL BID RF: 0 cholecalciferol (vitamin D3) 25 mcg (1,000 unit) Tablet 50 mcg PO DAILY RF: 0 metoprolol tartrate 25 mg tablet 25 mg PO BID RF: 0 timolol maleate 0.25 % drops 1 drp ophthalmic-Right DAILY RF: 0 amlodipine 10 mg tablet 10 mg PO DAILY RF: 0 Discharge Orders: Discharge Order (Routine); Ordered 03/04/21 Ordered By: Nick Castro Diet: advance to usual diet Activity on Discharge: As tolerated Stand Alone Forms: Patient Portal Discharge page Care Plan Goals: controll of kidney disease and cardiac disease Health Concerns: chronic kidney disease Plan of Treatment: Follow up with your kidney doctor Assessment: As above
--- NOTE | 2021-03-04 12:04 | MHC.CM.PN ---
PT TO RETURN TO [facility] TODAY AT 1400 HOURS VM MESSAGE LEFT FOR PTS DAUGHTER / HCP MONICA [phone] informing her of DC
== END 2021-03-04 16:05 | disposition skilled nursing facility (03) | DRG 684 ==
LOC: HO.ED 21:26 → HO.EDOVER 23:39
PROVIDERS: Internal Medicine Nephrology; Admitting Provider Hospitalist; Emergency Provider Internal Medicine; PCP Internal Medicine; Visit Provider Internal Medicine
DX: N17.9 Acute kidney failure, unspecified (principal); E11.51 Type 2 diabetes mellitus with diabetic peripheral angiopathy without gangrene; H54.8 Legal blindness, as defined in USA; H40.9 Unspecified glaucoma; E11.22 Type 2 diabetes mellitus with diabetic chronic kidney disease; R94.39 Abnormal result of other cardiovascular function study; D63.1 Anemia in chronic kidney disease; I12.9 Hypertensive chronic kidney disease with stage 1 through stage 4 chronic kidney disease, or unspecified chronic kidney disease; N18.4 Chronic kidney disease, stage 4 (severe); K59.00 Constipation, unspecified; Z20.822 Contact with and (suspected) exposure to COVID-19; E53.8 Deficiency of other specified B group vitamins; Z87.440 Personal history of urinary (tract) infections; Z79.51 Long term (current) use of inhaled steroids; Z79.82 Long term (current) use of aspirin; Z79.899 Other long term (current) drug therapy
CPT/HCPCS: 36415; 71045; 80048; 83540; 83735; 84484; 85025; 85610; 87635; 93005; 96360; 99219; 99285

== ENCOUNTER 2021-06-16 13:55 | Inpatient (IN) | payer MEDICARE, MEDICAID, SELFPAY ==
[2021-06-16] VITALS (8 sets, daily range): BP systolic 167–185; BP diastolic 63–81; PULSE 91–101; RESP 16–24; TEMP 36.7–37.4; O2SAT 95–98; BMI 28.8
--- NOTE | ~2021-06-16 | US_ITS ---
EXAMINATION: US VENOUS ULTRASOUND WITH DOPPLER LOWER EXTREMITY, LEFT CLINICAL INFORMATION: Swelling COMPARISON: None TECHNIQUE: Ultrasound of the deep veins is performed from the hip to the calf with compression sonography and color and pulse Doppler assessment. Spectral analysis with color-flow imaging is performed. FINDINGS: There is almost complete occlusion of the left deep venous system including the common femoral vein, great saphenous vein, the entire femoral vein and popliteal veins. There is no significant popliteal fossa cyst. US/US venous duplex LE LT IMPRESSION: Positive DVT. Deep venous thrombosis of the entire left leg veins from the common femoral through popliteal and posterior tibial veins. (Referring physician staff is being called, to be alerted of the above findings and recommendations.) SM
[2021-06-16 14:40] LABS: MANUAL DIFF FLAG NO
--- NOTE | 2021-06-16 14:40 | PC.NURSE ---
pt a&ox3, vss, 20G IV placed left AC, labs drawn. pt seen at [facility] for ~2w for DVT rehab, low H&H, declined blood transfusion/treatment this morning. pt continues to have pain in her left leg without relief, has been experiencing increased discomfort w PT and is having difficulty following treatment plan. [facility] discharge pt AMA. provider in room.
[2021-06-16 14:46] LABS: Basophils Percent Auto 0.3 % (0-2); Eosinophils Absolute Auto 0.3 X10*3/uL (0.0-0.4); Eosinophils Percent Auto 4.2 % (0-4); Hematocrit 22.5 % (37.0-47.0); Hemoglobin 7.2 g/dl (12.0-16.0); Imm Gran Abs Auto 0.03 X10*3/uL (0.00-0.03); Imm Gran Pct Auto 0.4 % (0.0-0.4); Lymphocytes Absolute Auto 1.3 X10*3/uL (1.2-4.9); Lymphocytes Percent Auto 18.7 % (20-40); Mean Corpuscular Hemoglobin 28.9 pg (27.0-33.0); Mean Corpuscular Volume 90.4 fL (80.0-98.0); Mean Platelet Volume 9.5 fL (9.4-12.3); Monocytes Absolute Auto 0.5 X10*3/uL (0.1-1.2); Monocytes Percent Auto 7.2 % (2-11); Neutrophils Absolute Auto 4.7 x10*3/uL (2.0-8.3); Neutrophils Percent Auto 69.2 % (45-73); Platelet Count 277 X10*3/uL (160-400); Red Blood Count 2.49 X10*6/uL (4.20-5.50); Red Cell Distribution Width 13.2 % (11.0-16.0); White Blood Count 6.8 X10*3/uL (4.8-10.8)
[2021-06-16 14:55] LABS: Anion Gap 15 (12-20); Blood Urea Nitrogen 68 mg/dL (9-16); Calcium 8.7 mg/dL (8.4-10.2); Carbon Dioxide 15 mmol/L (22-29); Chloride 110 mmol/L (96-108); Creatinine Clr Calc Pharmacy 14.2; Estimated Glomerular Filt Rate 12; Glucose Random 304 mg/dL (60-115); Potassium 4.2 mmol/L (3.3-5.1); Sodium 136 mmol/L (135-145)
[2021-06-16 15:10] LABS: OBS Int Ctl Valid YES; OBS1 NEGATIVE (NEGATIVE)
--- NOTE | 2021-06-16 15:54 | ED_ITS ---
HPI - General Adult General Chief complaint: General Medical Stated complaint: ABNORMAL LABS, H&H PER EMS Time Seen by Provider: 06/16/21 14:04 History of Present Illness HPI narrative: Patient is a 76-year-old female been in a rehab facility for DVT. Had low hemoglobin. Scheduled for transfusion this morning. Patient decided to leave AMA. Experiencing discomfort in the legs which is there previously. Patient had a Doppler of the lower extremity done was positive for having a DVT in the lower extremity. Currently is on Eliquis. No fever no chills. No bloody stool. No cough no congestion or upper respiratory symptoms. No chest pain or shortness of breath. Positive generalized malaise. Patient is not vomiting blood. She is from home. Received her COVID test Related Data Home Medications Medication Instructions Recorded Confirmed atropine 1 % eye drops 1 drp OPHTHALMIC (EYE) TID 04/15/20 03/02/21 prednisolone acetate 1 % eye 1 drp OPHTHALMIC (EYE) TID 04/15/20 03/02/21 drops,suspension acetaminophen 500 mg tablet 1,000 mg PO Q8H PRN 07/27/20 03/01/21 calcitriol 0.25 mcg capsule 0.25 mcg PO DAILY 07/27/20 03/01/21 cyanocobalamin (vitamin B-12) 1,000 mcg IM QMONTH 07/27/20 03/01/21 1,000 mcg/mL injection kit glyburide 5 mg tablet 5 mg PO DAILY 07/27/20 03/01/21 amlodipine 10 mg tablet 10 mg PO DAILY 12/07/20 03/01/21 ascorbic acid (vitamin C) 500 mg 1,000 mg PO DAILY 03/01/21 03/01/21 tablet aspirin 81 mg chewable tablet 81 mg PO DAILY 03/01/21 03/01/21 benzalkonium chloride 0.13 % lotion 1 ea TOPICAL BID 03/01/21 03/01/21 bisacodyl 10 mg rectal suppository 10 mg CO DAILY PRN 03/01/21 03/01/21 cholecalciferol (vitamin D3) 25 50 mcg PO DAILY 03/01/21 03/01/21 mcg (1,000 unit) tablet ferrous sulfate 325 mg (65 mg 325 mg PO DAILY 03/01/21 03/01/21 iron) tablet fluticasone propionate 50 1 spray INTRANASAL DAILY 03/01/21 03/01/21 mcg/actuation nasal spray,suspension magnesium hydroxide 400 mg/5 mL 30 ml PO BEDTIME PRN 03/01/21 03/01/21 oral suspension (Milk of Magnesia) metoprolol tartrate 25 mg tablet 25 mg PO BID 03/01/21 03/01/21 multivitamin 1 tab PO DAILY 03/01/21 03/01/21 polyethylene glycol 3350 17 gram 17 g PO DAILY 03/01/21 03/01/21 oral powder packet (Miralax) timolol maleate 0.25 % eye drops 1 drp OPHTHALMIC-RIGHT DAILY 03/02/21 03/02/21 Allergies Allergy/AdvReac Type Severity Reaction Status Date / Time No Known Allergies Allergy Verified 06/16/21 14:06 [No Known Allergies*] Review of Systems Review of Systems: No fever no chills no coughing or congestion or upper respiratory symptoms No diaphoresis Positive pain to the left lower extremity No bloody stool Yes all other systems are reviewed and are negative PMFSH Past Medical History Attestation statement: The following information was validated with the patient. Medical History Abnormal myocardial perfusion study Anemia Blind Chest pain CKD (chronic kidney disease) Constipation Coronary artery disease Diabetes Diabetic foot infection DVT (deep venous thrombosis) Essential hypertension Normocytic anemia PAD (peripheral artery disease) UTI due to Klebsiella species Social History Social History Household Members: None Housing: Alf Do you presently have visiting nurse or other home services: No Alcohol intake: never Patient Tobacco Use Status: Never used Tobacco Second Hand Smoke Exposure: No Use of substances other than those prescribed or required for medical reasons: No Advance Directives: No Advance Directives Information Provided: No service: No Current occupational status: disabled Physical Exam ED Vital Signs: Vital Signs - 24 hr 06/16/21 14:07 Temperature 99.4 F Pulse Rate 98 Respiratory Rate 24 H Blood Pressure 168/63 H Pulse Oximetry 98 BMI result Body Mass Index 28.8 Appearance: Alert. Oriented X3. No acute distress. Eyes: Pupils equal, round and reactive to light. ENT: Pharynx normal. Neck: Normal inspection. Neck supple. No lymph nodes noted. No crepitus CVS: Normal heart rate and rhythm. Pulses normal. Normal S1 and S2 Respiratory: No respiratory distress. Breath sounds normal. No Wheezing. No rales Abdomen: Soft and nontender. No rigidity. No distention. good BS x4 Rectal exam done with nurse colton present. Grossly heme negative brown stool. Skin: Skin warm and dry. Normal skin color. Normal skin turgor. Extremities: Left lower extremity positive leg swelling 2+ pitting edema distal sensation intact pulse intact capillary refill less than 2 seconds. Neuro: Oriented X 3. No motor deficit. No sensory deficit. Moving all extermities. No slurred speech Medical Decision Making MDM Narrative Medical decision making narrative: Positive DVT on the left lower extremity. Patient's currently is on Eliquis. Unfortunately patient was noted to have a low hemoglobin. There is no trauma. Rectal exam showed no blood. Patient hemoglobin today is 7.2. In the setting of patient's diabetes, hypertension. Elderly. Will transfuse patient with blood. Risk and benefit of transfusion discussed with patient. Patient states understanding. Case discussed with hospitalist team for admission observation a s patient is on blood thinner having a low hemoglobin. Currently in stable condition awaiting admission. Case discussed with hospitalist team. Lab Data Result diagrams: 06/16/21 14:37 06/16/21 14:37 Labs: Lab Results 06/16/21 06/16/21 06/16/21 Range/Units 14:37 14:37 14:55 WBC 6.8 (4.8-10.8) X10*3/uL RBC 2.49 L (4.20-5.50) X10*6/uL Hgb 7.2 L D (12.0-16.0) g/dl Hct 22.5 L (37.0-47.0) % MCV 90.4 (80.0-98.0) fL MCH 28.9 (27.0-33.0) pg MCHC 32.0 (31.0-35.0) g/dl RDW 13.2 (11.0-16.0) % Plt Count 277 D (160-400) X10*3/uL MPV 9.5 (9.4-12.3) fL Immature Gran % (Auto) 0.4 (0.0-0.4) % Neut % (Auto) 69.2 (45-73) % Lymph % (Auto) 18.7 L (20-40) % [place] % (Auto) 7.2 (2-11) % Eos % (Auto) 4.2 H (0-4) % Baso % (Auto) 0.3 (0-2) % Lymph # (Auto) 1.3 (1.2-4.9) X10*3/uL [place] # (Auto) 0.5 (0.1-1.2) X10*3/uL Eos # (Auto) 0.3 (0.0-0.4) X10*3/uL Baso # (Auto) 0.0 (0.0-0.2) X10*3/uL Abs Immat Gran (auto) 0.03 (0.00-0.03) X10*3/uL Absolute Neuts (auto) 4.7 (2.0-8.3) x10*3/uL Absolute Nucleated RBC 0.000 (0.0-0.012) X10*3/uL Nucleated RBC % (auto) 0.0 (0.0-0.2) /100WBC Sodium 136 (135-145) mmol/L Potassium 4.2 (3.3-5.1) mmol/L Chloride 110 H (96-108) mmol/L Carbon Dioxide 15 L (22-29) mmol/L Anion Gap 15 (12-20) BUN 68 H D (9-16) mg/dL Creatinine 3.67 H (0.5-1.4) mg/dL Estim Creat Clear Calc 14.2 Estimated GFR 12 Random Glucose 304 H (60-115) mg/dL Calcium 8.7 (8.4-10.2) mg/dL Stool Occult Blood NEGATIVE (NEGATIVE) Discharge Plan Discharge Clinical Impression: Anemia, DVT (deep venous thrombosis) Patient Disposition: Admitted As Inpatient Prescriptions: No Action prednisolone acetate 1 % drops,suspension 1 drp ophthalmic (eye) TID 0RF atropine 1 % drops 1 drp ophthalmic (eye) TID 0RF glyburide 5 mg Tablet 5 mg PO DAILY 0RF acetaminophen 500 mg Tablet 1,000 mg PO Q8H PRN (Reason: Pain (Scale Score 1-3)) 0RF calcitriol 0.25 mcg Capsule 0.25 mcg PO DAILY 0RF cyanocobalamin (vitamin B-12) 1,000 mcg/mL Kit 1,000 mcg IM QMONTH 0RF Rx Instructions: on the 10th of each month multivitamin Tablet 1 tab PO DAILY 0RF polyethylene glycol 3350 [Miralax] 17 gram Powder In Packet 17 g PO DAILY 0RF magnesium hydroxide [Milk of Magnesia] 400 mg/5 mL Suspension 30 ml PO BEDTIME PRN (Reason: Constipation) 0RF ascorbic acid (vitamin C) 500 mg Tablet 1,000 mg PO DAILY 0RF bisacodyl 10 mg Suppository 10 mg CO DAILY PRN (Reason: Constipation) 0RF ferrous sulfate 325 mg (65 mg iron) Tablet 325 mg PO DAILY 0RF aspirin 81 mg Tablet,Chewable 81 mg PO DAILY 0RF fluticasone propionate [Flonase] 50 mcg/actuation [place],Suspension 1 spray INTRANASAL DAILY 0RF benzalkonium chloride 0.13 % Lotion 1 ea TOPICAL BID 0RF Rx Instructions: apply to bilateral feet cholecalciferol (vitamin D3) 25 mcg (1,000 unit) Tablet 50 mcg PO DAILY 0RF metoprolol tartrate 25 mg tablet 25 mg PO BID 0RF Protocol: Hold for SBP/HR < HOLD for SBP < : 90 HOLD for HR < : 60 timolol maleate 0.25 % drops 1 drp ophthalmic-Right DAILY 0RF
--- NOTE | 2021-06-16 16:17 | PM.IMHP ---
History of Present Illness Date of Service: 06/16/21 Chief Complaint: worsening LLE edema 76-year-old female recently admitted to rehab for left lower extremity DVT. Routine labs demonstrated a hemoglobin 7.2 was scheduled for transfusion. Patient unhappy with her care and signed out AMA. Presents to [facility] with a worsening left lower extremity edema in backdrop of ongoing Eliquis therapy. She voices no cardiac complaints at this time she will be admitted for transfusion and workup of left lower extremity edema Review of Systems Review of Systems: Denies chest pain Denies shortness of breath Denies nausea vomiting diarrhea Admits left lower extremity edema that has worsened [facility] Medical History (Updated 06/16/21 @ 16:22 by Александр Cramer DO) Abnormal myocardial perfusion study Anemia Blind Chest pain CKD (chronic kidney disease) Constipation Coronary artery disease Diabetes Diabetic foot infection DVT (deep venous thrombosis) Essential hypertension Normocytic anemia PAD (peripheral artery disease) UTI due to Klebsiella species Social History Household Members: None Housing: Assisted Do you presently have visiting nurse or other home services: No Alcohol intake: never Patient Tobacco Use Status: Never used Tobacco Second Hand Smoke Exposure: No Use of substances other than those prescribed or required for medical reasons: No Advance Directives: No Advance Directives Information Provided: No service: No Current occupational status: disabled Meds Allergies Allergy/AdvReac Type Severity Reaction Status Date / Time No Known Allergies Allergy Verified 06/16/21 14:06 [No Known Allergies*] Active Medications: Current Medications Acetaminophen (Acetaminophen 325 Mg Tablet) 650 mg PO Q6H PRN PRN Reason: Pain, Mild (Pain Scale 1-3) Pharmacy Consult (Consult Rx Perform Med Rec) 1 each MISCELLANE ONCE PRN PRN Reason: Consult order Pharmacy Consult (Consult Rx Perform Med Rec) 1 each MISCELLANE ONCE PRN PRN Reason: Consult order Sodium Chloride (0.9 % Sodium Chloride Flush 3 Ml Syringe) 3 ml IVFLUSH [facility] Medications Medication Instructions Recorded Confirmed Last Taken Type atropine 1 % eye drops 1 drp OPHTHALMIC (EYE) TID 04/15/20 03/02/21 09/05/20 History prednisolone acetate 1 % eye 1 drp OPHTHALMIC (EYE) TID 04/15/20 03/02/21 09/05/20 History drops,suspension acetaminophen 500 mg tablet 1,000 mg PO Q8H PRN 07/27/20 03/01/21 Unknown History calcitriol 0.25 mcg capsule 0.25 mcg PO DAILY 07/27/20 03/01/21 Unknown History cyanocobalamin (vitamin B-12) 1,000 mcg IM QMONTH 07/27/20 03/01/21 07/18/20 History 1,000 mcg/mL injection kit glyburide 5 mg tablet 5 mg PO DAILY 07/27/20 03/01/21 09/05/20 History amlodipine 10 mg tablet 10 mg PO DAILY 12/07/20 03/01/21 Unknown History ascorbic acid (vitamin C) 500 mg 1,000 mg PO DAILY 03/01/21 03/01/21 Unknown History tablet benzalkonium chloride 0.13 % lotion 1 ea TOPICAL BID 03/01/21 03/01/21 Unknown History bisacodyl 10 mg rectal suppository 10 mg [place] DAILY PRN 03/01/21 03/01/21 Unknown History cholecalciferol (vitamin D3) 25 50 mcg PO DAILY 03/01/21 03/01/21 Unknown History mcg (1,000 unit) tablet ferrous sulfate 325 mg (65 mg 325 mg PO DAILY 03/01/21 03/01/21 Unknown History iron) tablet fluticasone propionate 50 1 spray INTRANASAL DAILY 03/01/21 03/01/21 Unknown History mcg/actuation nasal spray,suspension magnesium hydroxide 400 mg/5 mL 30 ml PO BEDTIME PRN 03/01/21 03/01/21 Unknown History oral suspension (Milk of Magnesia) metoprolol tartrate 25 mg tablet 25 mg PO BID 03/01/21 03/01/21 Unknown History multivitamin 1 tab PO DAILY 03/01/21 03/01/21 Unknown History polyethylene glycol 3350 17 gram 17 g PO DAILY 03/01/21 03/01/21 Unknown History oral powder packet (Miralax) timolol maleate 0.25 % eye drops 1 drp OPHTHALMIC-RIGHT DAILY 03/02/21 03/02/21 Unknown History apixaban 5 mg tablet 5 mg PO BID 06/16/21 06/16/21 06/16/21 09:30 History aspirin 325 mg tablet 325 mg PO DAILY 06/16/21 06/16/21 06/16/21 History glyburide 5 mg tablet 5 mg PO BID 06/16/21 06/16/21 06/16/21 History Physical Exam Vital Signs and Narrative: Vital Signs: Last Vital Signs Temp 99.4 F 06/16/21 14:07 Pulse 98 06/16/21 14:07 Resp 24 H 06/16/21 14:07 BP 168/63 H 06/16/21 14:07 Pulse Ox 98 06/16/21 14:07 BMI result Body Mass Index 28.8 Const: Other: Awake alert no acute distress Resp: Other: Clear to auscultation bilaterally no rales rhonchi or wheezes Cardio: Other: No S4; positive S1-S2; no S3 murmurs rubs or gallops GI: Other: Soft nondistended normoactive bowel sounds x4 quadrants Extrem: Other: Left lower extremity greater than right lower extremity 3:1 Results Labs CBC and Chem 7: 06/16/21 14:37 06/16/21 14:37 Labs: Laboratory Results - last 24 hr 06/16/21 06/16/21 06/16/21 14:37 14:37 14:55 MCV 90.4 MCH 28.9 MCHC 32.0 RDW 13.2 Plt Count 277 D MPV 9.5 Immature Gran % (Auto) 0.4 Neut % (Auto) 69.2 Lymph % (Auto) 18.7 L [place] % (Auto) 7.2 Eos % (Auto) 4.2 H Baso % (Auto) 0.3 Lymph # (Auto) 1.3 [place] # (Auto) 0.5 Eos # (Auto) 0.3 Baso # (Auto) 0.0 Abs Immat Gran (auto) 0.03 Absolute Neuts (auto) 4.7 Absolute Nucleated RBC 0.000 Nucleated RBC % (auto) 0.0 Carbon Dioxide 15 L Anion Gap 15 Creatinine 3.67 H Estim Creat Clear Calc 14.2 Estimated GFR 12 Random Glucose 304 H Calcium 8.7 Stool Occult Blood NEGATIVE Crossmatch 06/16/21 16:00 MCV MCH MCHC RDW Plt Count MPV Immature Gran % (Auto) Neut % (Auto) Lymph % (Auto) [place] % (Auto) Eos % (Auto) Baso % (Auto) Lymph # (Auto) [place] # (Auto) Eos # (Auto) Baso # (Auto) Abs Immat Gran (auto) Absolute Neuts (auto) Absolute Nucleated RBC Nucleated RBC % (auto) Carbon Dioxide Anion Gap Creatinine Estim Creat Clear Calc Estimated GFR Random Glucose Calcium Stool Occult Blood Crossmatch See Detail Assessment and Plan (1) DVT (deep venous thrombosis): Status: Acute (2) Anemia: Status: Acute (3) CKD (chronic kidney disease): Status: Acute (4) Diabetes: Status: Acute Plan 76-year-old female with known history of left lower extremity DVT presents after signing out AMA from rehab. Presents to [facility] where hemoglobin was found to be 7 and left lower extremity is 3 times the size of the right despite Eliquis. 1. Left leg DVT -ultrasound this p.m. -consider Eliquis failure . . . Will start heparin drip in a.m. if clot burden extensive -consult Dr. Blood (has seen before ) 2. Anemia -acute on chronic -transfuse 2 units of packed cells with Lasix after 1st unit -follow hemoglobin in a.m. 3. CKD -at baseline -will consult Renal in a.m. -follow renals/divalents 4.DMII -continue outpatient therapy -lispro correctional scale -ADA diet Full code Eliquis Will require 2 midnights going forward for transfusion and treatment of what appears to be worsening clot. This could not be accomplished and a lesser acute setting Quality Stroke Does the patient have a stroke diagnosis?: No VTE Prior VTE?: Yes VTE Risk Level:: Medical - moderate - high VTE Device Contraindication: Treatment Not Indicated VTE Drug Contraindication: N/A - Med Ordered
[2021-06-16 16:30] LABS: COVID-19 Test Negative (Negative); IDNOW Serial# 16C4AD1C
[2021-06-16] MEDS: diphenhydrAMINE HCL 50 MG/ML VIAL 25 MG IVPUSH (17:19)
--- NOTE | 2021-06-16 17:29 | PC.NURSE ---
attempted to call in report for pt transfer, RN on break will call back.
--- NOTE | 2021-06-16 17:39 | PHA.MEDREC ---
med rec complete, info based on discharge from [facility] Pharmacy Consult ? Medication Reconciliation Pharmacy has completed the medication reconciliation.
--- NOTE | 2021-06-16 17:56 | PC.NURSE ---
medicated w benadryl prior to blood administration per provider order, blood infusing.
[2021-06-16] MEDS: Furosemide 20 MG/2 ML VIAL IVPUSH (20:27)
[2021-06-16] MEDS: Acetaminophen 325 MG TABLET 650 MG PO (21:13)
[2021-06-17 00:05] VITALS: BP 179/77; PULSE 95; RESP 20; TEMP 37.1
[2021-06-17 05:30] LABS: MANUAL DIFF FLAG NO
[2021-06-17 05:38] LABS: Basophils Percent Auto 0.5 % (0-2); Eosinophils Absolute Auto 0.4 X10*3/uL (0.0-0.4); Eosinophils Percent Auto 4.9 % (0-4); Hematocrit 28.8 % (37.0-47.0); Hemoglobin 9.6 g/dl (12.0-16.0); Imm Gran Abs Auto 0.03 X10*3/uL (0.00-0.03); Imm Gran Pct Auto 0.4 % (0.0-0.4); Lymphocytes Absolute Auto 1.5 X10*3/uL (1.2-4.9); Lymphocytes Percent Auto 17.6 % (20-40); Mean Corpuscular HGB Conc 33.3 g/dl (31.0-35.0); Mean Corpuscular Hemoglobin 29.6 pg (27.0-33.0); Mean Corpuscular Volume 88.9 fL (80.0-98.0); Mean Platelet Volume 9.6 fL (9.4-12.3); Monocytes Absolute Auto 0.7 X10*3/uL (0.1-1.2); Monocytes Percent Auto 7.9 % (2-11); Neutrophils Absolute Auto 5.7 x10*3/uL (2.0-8.3); Neutrophils Percent Auto 68.7 % (45-73); Platelet Count 253 X10*3/uL (160-400); Red Blood Count 3.24 X10*6/uL (4.20-5.50); Red Cell Distribution Width 13.2 % (11.0-16.0); White Blood Count 8.2 X10*3/uL (4.8-10.8)
[2021-06-17 05:50] LABS: Alanine Aminotransferase 8 U/L (0-31); Albumin Level 3.2 g/dL (3.5-5.0); Alkaline Phosphatase 64 U/L (39-117); Anion Gap 14 (12-20); Aspartate Amino Transferase 10 U/L (5-31); Bilirubin Total 0.4 mg/dL (0.0-1.0); Blood Urea Nitrogen 66 mg/dL (9-16); Calcium 8.5 mg/dL (8.4-10.2); Carbon Dioxide 14 mmol/L (22-29); Chloride 115 mmol/L (96-108); Creatinine Clr Calc Pharmacy 14.8; Estimated Glomerular Filt Rate 13; Glucose Fasting 114 mg/dL (60-99); Potassium 4.4 mmol/L (3.3-5.1); Sodium 139 mmol/L (135-145); Total Protein 6.4 g/dL (6.5-8.0)
[2021-06-17 07:48] LABS: Hematocrit 29.3 % (37.0-47.0); Hemoglobin 9.7 g/dl (12.0-16.0); Mean Corpuscular HGB Conc 33.1 g/dl (31.0-35.0); Mean Corpuscular Hemoglobin 29.4 pg (27.0-33.0); Mean Corpuscular Volume 88.8 fL (80.0-98.0); Mean Platelet Volume 9.3 fL (9.4-12.3); Platelet Count 240 X10*3/uL (160-400); Red Cell Distribution Width 13.3 % (11.0-16.0); White Blood Count 8.5 X10*3/uL (4.8-10.8)
[2021-06-17 07:59] LABS: INTERNATIONAL NORM RATIO 1.2 (0.9-1.1); Prothrombin Time 13.1 SEC (9.9-13.0)
[2021-06-17 08:00] VITALS: BP 178/77; PULSE 88; RESP 18; TEMP 37.1; O2SAT 97
[2021-06-17 08:16] VITALS: BMI 25.7
[2021-06-17] MEDS: Heparin Sodium,Porcine/1/2NS 25,000 UNIT/250 ML IV.SOLN 10.44 UNIT IVCONT (08:51)
[2021-06-17] MEDS: Heparin Sodium,Porcine 5,000 UNIT/ML VIAL 3000 UNIT IVPUSH (08:55)
[2021-06-17] MEDS: Aspirin 325 MG TABLET PO (10:43)
[2021-06-17] MEDS: glyBURIDE 5 MG TABLET PO (10:44)
[2021-06-17] MEDS: Ascorbic Acid 250 MG TABLET PO (10:44)
[2021-06-17] MEDS: Acetaminophen 325 MG TABLET 650 MG PO (10:44)
[2021-06-17] MEDS: Sodium Bicarbonate 650 MG TABLET PO (10:45)
[2021-06-17] MEDS: Cholecalciferol (Vitamin D3) 25 MCG TABLET 50 MCG PO (10:45)
[2021-06-17] MEDS: calcitrioL 0.25 MCG CAPSULE PO (10:45)
[2021-06-17] MEDS: amLODIPine Besylate 5 MG TABLET PO (10:45)
[2021-06-17] MEDS: Fluticasone Propionate Nasal 16 GM SPRAY 1 SPRAY NOSTRIL-B (10:51)
[2021-06-17] MEDS: timoloL maleate XE 0.5 % Gel 5 ML DRBTL 1 DROP EYE-RIGHT (10:53)
[2021-06-17] MEDS: Atropine Sulfate 1 % Ophth Sol 2 ML BOTTLE 1 DROP EYE-LEFT ×3 (10:55→21:13)
[2021-06-17] MEDS: prednisoLONE Acetate 1 % Oph Susp 5 ML DRPBTL 1 DROP EYE-BOTH (10:56)
[2021-06-17] MEDS: Ferrous Sulfate 324 MG TABLET.DR PO (11:01)
[2021-06-17 12:12] LABS: Glucose, Whole Blood 130 mg/dL (60-115)
--- NOTE | 2021-06-17 12:29 | MHC.CM.PN ---
IMM 06/17/21, EMR REVIEWED, PT ADMITTED W/LE DVT, PT REPORTS SHE WAS AT [facility] AND THEY WERE GOING TO GIVE HER A BLOOD TRANSFUSION AND SHE REFUSED AND CHOSE TO LEAVE AMA, THIS HAS BEEN VERIFIED W/FACILITY, PT CONCERNED ABOUT GOING HOME D/T NOT BEING ABLE TO WALK OR STAND W/HER LEG THE WAY IT IS, PT HAS HX OF DISLIKING SNF'S SHE HAS BEEN IN, IN THE PAST AND IS WILLING TO CONSIDER HHCC IN [place], PT REPORTS SHE WOULD NOT GO BACK TO [facility] EVEN IF THEY WOULD TAKE HER, PT WOULD D/C HOME IF SHE COULD STAND AND PIVOT PRIOR TO D/C. PT VERIFIES PCP IS DR GAO AT [address] [place] [address], HCP ON FILE FROM PREVIOUS VISIT. D/C PLAN: STR VS HOME W/SERVICES, PT WILL NEED BLS TRANSPORT FOR BOTH HOME AND STR
--- NOTE | 2021-06-17 12:41 | P.PNNP_ITS ---
Subjective Subjective Date of Service: 06/17/21 Interval history: seen and examined Physical Exam Vital Signs: Vital Signs: Last Vital Signs Temp 98.8 F 06/17/21 08:00 Pulse 88 06/17/21 08:00 Resp 18 06/17/21 08:00 BP 178/77 H 06/17/21 08:00 Pulse Ox 97 06/17/21 08:00 BMI result Body Mass Index 25.7 Objective Data Labs CBC & Chem 7: 06/17/21 07:41 06/17/21 05:18 Labs: Laboratory Results - last 24 hr 06/16/21 06/16/21 06/16/21 14:37 14:37 14:55 WBC 6.8 RBC 2.49 L Hgb 7.2 L D Hct 22.5 L MCV 90.4 MCH 28.9 MCHC 32.0 RDW 13.2 Plt Count 277 D MPV 9.5 Immature Gran % (Auto) 0.4 Neut % (Auto) 69.2 Lymph % (Auto) 18.7 L [place] % (Auto) 7.2 Eos % (Auto) 4.2 H Baso % (Auto) 0.3 Lymph # (Auto) 1.3 [place] # (Auto) 0.5 Eos # (Auto) 0.3 Baso # (Auto) 0.0 Abs Immat Gran (auto) 0.03 Absolute Neuts (auto) 4.7 Absolute Nucleated RBC 0.000 Nucleated RBC % (auto) 0.0 PT INR aPTT Heparin Protocol Sodium 136 Potassium 4.2 Chloride 110 H Carbon Dioxide 15 L Anion Gap 15 BUN 68 H D Creatinine 3.67 H Estim Creat Clear Calc 14.2 Estimated GFR 12 POC Glucose Random Glucose 304 H Fasting Glucose Calcium 8.7 Total Bilirubin AST ALT Alkaline Phosphatase Total Protein Albumin Stool Occult Blood NEGATIVE COVID-19 (CHANTELLE) COVID-19 Clin Com Blood Type Antibody Screen Crossmatch 06/16/21 06/16/21 06/17/21 16:00 16:00 05:18 WBC 8.2 RBC 3.24 L D Hgb 9.6 L D Hct 28.8 L D MCV 88.9 MCH 29.6 MCHC 33.3 RDW 13.2 Plt Count 253 MPV 9.6 Immature Gran % (Auto) 0.4 Neut % (Auto) 68.7 Lymph % (Auto) 17.6 L [place] % (Auto) 7.9 Eos % (Auto) 4.9 H Baso % (Auto) 0.5 Lymph # (Auto) 1.5 [place] # (Auto) 0.7 Eos # (Auto) 0.4 Baso # (Auto) 0.0 Abs Immat Gran (auto) 0.03 Absolute Neuts (auto) 5.7 Absolute Nucleated RBC 0.000 Nucleated RBC % (auto) 0.0 PT INR aPTT Heparin Protocol Sodium Potassium Chloride Carbon Dioxide Anion Gap BUN Creatinine Estim Creat Clear Calc Estimated GFR POC Glucose Random Glucose Fasting Glucose Calcium Total Bilirubin AST ALT Alkaline Phosphatase Total Protein Albumin Stool Occult Blood COVID-19 ([facility]ELLE) Negative COVID-19 Clin Com See Note Blood Type O Positive Antibody Screen NEGATIVE Crossmatch See Detail 06/17/21 06/17/21 06/17/21 05:18 07:41 07:41 WBC 8.5 RBC 3.30 L Hgb 9.7 L Hct 29.3 L MCV 88.8 MCH 29.4 MCHC 33.1 RDW 13.3 Plt Count 240 MPV 9.3 L Immature Gran % (Auto) Neut % (Auto) Lymph % (Auto) [place] % (Auto) Eos % (Auto) Baso % (Auto) Lymph # (Auto) [place] # (Auto) Eos # (Auto) Baso # (Auto) Abs Immat Gran (auto) Absolute Neuts (auto) Absolute Nucleated RBC 0.000 Nucleated RBC % (auto) 0.0 PT 13.1 H INR 1.2 H aPTT Heparin Protocol 38.0 L Sodium 139 Potassium 4.4 Chloride 115 H Carbon Dioxide 14 L Anion Gap 14 BUN 66 H Creatinine 3.53 H Estim Creat Clear Calc 14.8 Estimated GFR 13 POC Glucose Random Glucose Fasting Glucose 114 H Calcium 8.5 Total Bilirubin 0.4 AST 10 ALT 8 Alkaline Phosphatase 64 D Total Protein 6.4 L Albumin 3.2 L Stool Occult Blood COVID-19 (CHANTELLE) COVID-19 Endocyte Com Blood Type Antibody Screen Crossmatch 06/17/21 08:59 WBC RBC Hgb Hct MCV MCH MCHC RDW Plt Count MPV Immature Gran % (Auto) Neut % (Auto) Lymph % (Auto) [place] % (Auto) Eos % (Auto) Baso % (Auto) Lymph # (Auto) [place] # (Auto) Eos # (Auto) Baso # (Auto) Abs Immat Gran (auto) Absolute Neuts (auto) Absolute Nucleated RBC Nucleated RBC % (auto) PT INR aPTT Heparin Protocol Sodium Potassium Chloride Carbon Dioxide Anion Gap BUN Creatinine Estim Creat Clear Calc Estimated GFR POC Glucose 130 H Random Glucose Fasting Glucose Calcium Total Bilirubin AST ALT Alkaline Phosphatase Total Protein Albumin Stool Occult Blood COVID-19 (CHANTELLE) COVID-19 Clin Com Blood Type Antibody Screen Crossmatch Procedures Date of Service Date of Service: 06/17/21 Assessment & Plan Assessment and plan (1) CKD (chronic kidney disease) stage 4, GFR 15-29 ml/min: Status: Acute (2) Metabolic acidosis: Status: Acute (3) HTN (hypertension): Status: Acute (4) Anemia: Status: Acute Plan known severe CKD due to HTN/DM baseline Scr ~ 3 mg/dl non anion gap metabolic acidosis type IV RTA REC sodium bicarbonate 650 mg bid dose medications for eGFR < 30 ml/min follow kidney function and electrolytes Time Spent With Patient Time: Total time spent is greater than 50% in coordination of care (as documented) at patient's floor/unit and/or counseling patient: Progress Note: Quality Stroke Does the patient have a stroke diagnosis?: No
--- NOTE | 2021-06-17 12:46 | P.PNIM_ITS ---
Subjective Subjective Date of Service: 06/17/21 Review of Systems Denies chest pain Denies shortness of breath Denies nausea vomiting diarrhea Admits left lower extremity edema that has worsened Physical Exam Vital Signs: Vital Signs: Last Vital Signs Temp 98.8 F 06/17/21 08:00 Pulse 88 06/17/21 08:00 Resp 18 06/17/21 08:00 BP 178/77 H 06/17/21 08:00 Pulse Ox 97 06/17/21 08:00 BMI result Body Mass Index 25.7 Const: Other: Awake alert no acute distress Resp: Other: Clear to auscultation bilaterally no rales rhonchi or wheezes Cardio: Other: No S4; positive S1-S2; no S3 murmurs rubs or gallops GI: Other: Soft nondistended normoactive bowel sounds x4 quadrants Extrem: Other: Left lower extremity greater than right lower extremity 3:1 Objective Data Active Medications Acetaminophen (Acetaminophen 325 Mg Tablet) 650 mg PO Q6H PRN PRN Reason: Pain, Mild (Pain Scale 1-3) Last Admin: 06/17/21 10:44 Dose: 650 mg Documented by: BETHANY Amlodipine Besylate (Amlodipine Besylate 5 Mg Tablet) 5 mg PO DAILY [facility]; Protocol Last Admin: 06/17/21 10:45 Dose: 5 mg Documented by: BETHANY Ascorbic Acid (Ascorbic Acid 250 Mg Tablet) 250 mg PO DAILY [facility] Last Admin: 06/17/21 10:44 Dose: 250 mg Documented by: BETHANY Aspirin (Aspirin 325 Mg Tablet) 325 mg PO DAILY [facility] Last Admin: 06/17/21 10:43 Dose: 325 mg Documented by: BETHANY Atorvastatin Calcium (Atorvastatin Calcium 80 Mg Tablet) 80 mg PO BEDTIME [facility] Atropine Sulfate (Atropine Sulfate 1 % Ophth Jacki 2 Ml Bottle) 1 drop EYE-LEFT TID [facility] Last Admin: 06/17/21 10:55 Dose: 1 drop Documented by: BETHANY Calcitriol (Calcitriol 0.25 Mcg Capsule) 0.25 mcg PO DAILY [facility] Last Admin: 06/17/21 10:45 Dose: 0.25 mcg Documented by: BETHANY Ferrous Sulfate (Ferrous Sulfate 324 Mg Tablet.) 324 mg PO DAILY [facility] Last Admin: 06/17/21 11:01 Dose: 324 mg Documented by: BETHANY Fluticasone Propionate (Fluticasone Propionate Nasal 16 Gm [place]) 1 spray NOSTRIL-B DAILY [facility] Last Admin: 06/17/21 10:51 Dose: 1 spray Documented by: BETHANY Glyburide (Glyburide 5 Mg Tablet) 5 mg PO DAILY [facility] Last Admin: 06/17/21 10:44 Dose: 5 mg Documented by: BETHANY Heparin Sodium (Porcine) (Heparin Sodium,Porcine 5,000 Unit/Ml Vial) 3,000 unit 40 unit/kg (3000 unit) IVPUSH PROTOCOL BOLUS PRN; Protocol PRN Reason: 40 unit/kg - Heparin Protocol Last Admin: 06/17/21 08:55 Dose: 3,000 unit Documented by: BETHANY Heparin Sodium (Porcine) (Heparin Sodium,Porcine 5,000 Unit/Ml Vial) 6,000 unit 80 unit/kg (6000 unit) IVPUSH PROTOCOL BOLUS PRN; Protocol PRN Reason: 80 unit/kg - Heparin Protocol Heparin Sodium/Sodium Chloride () 25,000 unit in 250 mls @ 0 mls/hr IVCONT .Q0M [facility]; Protocol Last Admin: 06/17/21 08:51 Dose: 14 units/kg/hr, 10.44 mls/hr Documented by: BETHANY Cosigned by: KATTY Pharmacy Consult (Consult Rx Perform Med Rec) 1 each MISCELLANE ONCE PRN PRN Reason: Consult order Pharmacy Consult (Consult Rx Perform Med Rec) 1 each MISCELLANE ONCE PRN PRN Reason: Consult order Prednisolone Acetate (Prednisolone Acetate 1 % Oph Susp 5 Ml Drpbtl) 1 drop EYE-BOTH DAILY [facility] Last Admin: 06/17/21 10:56 Dose: 1 drop Documented by: BETHANY Sodium Bicarbonate (Sodium Bicarbonate 650 Mg Tablet) 650 mg PO BID [facility] Last Admin: 06/17/21 10:45 Dose: 650 mg Documented by: BETHANY Sodium Chloride (0.9 % Sodium Chloride Flush 3 Ml Syringe) 3 ml IVFLUSH QSHIFT [facility] Last Admin: 06/17/21 10:45 Dose: Not Given Documented by: BETHANY Non-Admin Reason: IV Running Timolol Maleate (Timolol Maleate Xe 0.5 % Gel 5 Ml Drbtl) 1 drop EYE-RIGHT DAILY [facility] Last Admin: 06/17/21 10:53 Dose: 1 drop Documented by: BETHANY Vitamin D (Cholecalciferol (Vitamin D3) 25 Mcg Tablet) 50 mcg PO DAILY [facility] Last Admin: 06/17/21 10:45 Dose: 50 mcg Documented by: BETHANY Labs CBC & Chem 7: 06/17/21 07:41 06/17/21 05:18 Labs: Laboratory Results - last 24 hr 06/16/21 06/16/21 06/16/21 14:37 14:37 14:55 MCV 90.4 MCH 28.9 MCHC 32.0 RDW 13.2 Plt Count 277 D MPV 9.5 Immature Gran % (Auto) 0.4 Neut % (Auto) 69.2 Lymph % (Auto) 18.7 L [place] % (Auto) 7.2 Eos % (Auto) 4.2 H Baso % (Auto) 0.3 Lymph # (Auto) 1.3 [place] # (Auto) 0.5 Eos # (Auto) 0.3 Baso # (Auto) 0.0 Abs Immat Gran (auto) 0.03 Absolute Neuts (auto) 4.7 Absolute Nucleated RBC 0.000 Nucleated RBC % (auto) 0.0 PT INR aPTT Heparin Protocol Anion Gap 15 Estim Creat Clear Calc 14.2 Estimated GFR 12 POC Glucose Random Glucose 304 H Fasting Glucose Calcium 8.7 Total Bilirubin AST ALT Alkaline Phosphatase Total Protein Albumin Stool Occult Blood NEGATIVE COVID-19 ([facility]ELLE) COVID-19 Clin Com Blood Type Antibody Screen Crossmatch 06/16/21 06/16/21 06/17/21 16:00 16:00 05:18 MCV 88.9 MCH 29.6 MCHC 33.3 RDW 13.2 Plt Count 253 MPV 9.6 Immature Gran % (Auto) 0.4 Neut % (Auto) 68.7 Lymph % (Auto) 17.6 L [place] % (Auto) 7.9 Eos % (Auto) 4.9 H Baso % (Auto) 0.5 Lymph # (Auto) 1.5 [place] # (Auto) 0.7 Eos # (Auto) 0.4 Baso # (Auto) 0.0 Abs Immat Gran (auto) 0.03 Absolute Neuts (auto) 5.7 Absolute Nucleated RBC 0.000 Nucleated RBC % (auto) 0.0 PT INR aPTT Heparin Protocol Anion Gap Estim Creat Clear Calc Estimated GFR POC Glucose Random Glucose Fasting Glucose Calcium Total Bilirubin AST ALT Alkaline Phosphatase Total Protein Albumin Stool Occult Blood COVID-19 (CHANTELLE) Negative COVID-[employer] Com See Note Blood Type O Positive Antibody Screen NEGATIVE Crossmatch See Detail 06/17/21 06/17/21 06/17/21 05:18 07:41 07:41 MCV 88.8 MCH 29.4 MCHC 33.1 RDW 13.3 Plt Count 240 MPV 9.3 L Immature Gran % (Auto) Neut % (Auto) Lymph % (Auto) [place] % (Auto) Eos % (Auto) Baso % (Auto) Lymph # (Auto) [place] # (Auto) Eos # (Auto) Baso # (Auto) Abs Immat Gran (auto) Absolute Neuts (auto) Absolute Nucleated RBC 0.000 Nucleated RBC % (auto) 0.0 PT 13.1 H INR 1.2 H aPTT Heparin Protocol 38.0 L Anion Gap 14 Estim Creat Clear Calc 14.8 Estimated GFR 13 POC Glucose Random Glucose Fasting Glucose 114 H Calcium 8.5 Total Bilirubin 0.4 AST 10 ALT 8 Alkaline Phosphatase 64 D Total Protein 6.4 L Albumin 3.2 L Stool Occult Blood COVID-19 (CHANTELLE) COVID-[employer] Blood Type Antibody Screen Crossmatch 06/17/21 08:59 MCV MCH MCHC RDW Plt Count MPV Immature Gran % (Auto) Neut % (Auto) Lymph % (Auto) [place] % (Auto) Eos % (Auto) Baso % (Auto) Lymph # (Auto) [place] # (Auto) Eos # (Auto) Baso # (Auto) Abs Immat Gran (auto) Absolute Neuts (auto) Absolute Nucleated RBC Nucleated RBC % (auto) PT INR aPTT Heparin Protocol Anion Gap Estim Creat Clear Calc Estimated GFR POC Glucose 130 H Random Glucose Fasting Glucose Calcium Total Bilirubin AST ALT Alkaline Phosphatase Total Protein Albumin Stool Occult Blood COVID-19 (CHANTELLE) COVID-[employer] Com Blood Type Antibody Screen Crossmatch Assessment and Plan (1) DVT (deep venous thrombosis): Status: Acute (2) Anemia: Status: Acute (3) CKD (chronic kidney disease) stage 4, GFR 15-29 ml/min: Status: Acute (4) Type 2 diabetes mellitus: Status: Acute Plan 76-year-old female with known history of left lower extremity DVT presents after signing out AMA from rehab. Presents to [facility] where hemoglobin was found to be 7 and left lower extremity is 3 times the size of the right despite Eliquis. 1. Left leg DVT.........(Deep venous thrombosis of the entire left leg veins from the common femoral through popliteal and posterior tibial veins.) -switch to IV heparin drip. . . Eliquis failure -consult Dr. Blood 2. Anemia -acute on chronic -acceptable response to transfusion -follow hemoglobin in a.m. 3. CKD -at baseline -follow renals/divalents 4.DMII -continue outpatient therapy -refuses a list pro correctional scale as well as diabetic diet. Understands risks Full code Eliquis Will require IV heparin for failed Eliquis; entire deep vein system on left thrombosed Quality Stroke Does the patient have a stroke diagnosis?: No VTE Prior VTE?: Yes VTE Risk Level:: Medical - moderate - high VTE Device Contraindication: Treatment Not Indicated VTE Drug Contraindication: N/A - Med Ordered
[2021-06-17 15:14] LABS: PTT Heparin Drip 79.5 SEC (53-77.9)
[2021-06-17 15:39] VITALS: BP 165/75; PULSE 86; RESP 18; TEMP 36.9; O2SAT 99
[2021-06-17 16:34] LABS: Glucose, Whole Blood 165 mg/dL (60-115)
[2021-06-17 22:17] LABS: PTT Heparin Drip 74.3 SEC (53-77.9)
[2021-06-18] VITALS: BP 160/70; PULSE 85; RESP 18; TEMP 36.8; O2SAT 98
[2021-06-18 04:53] LABS: PTT Heparin Drip 78.2 SEC (53-77.9)
[2021-06-18 06:02] LABS: MANUAL DIFF FLAG NO
[2021-06-18 06:12] LABS: Basophils Absolute Auto 0.1 X10*3/uL (0.0-0.2); Basophils Percent Auto 0.6 % (0-2); Eosinophils Absolute Auto 0.4 X10*3/uL (0.0-0.4); Eosinophils Percent Auto 4.7 % (0-4); Hematocrit 30.2 % (37.0-47.0); Imm Gran Abs Auto 0.04 X10*3/uL (0.00-0.03); Imm Gran Pct Auto 0.5 % (0.0-0.4); Lymphocytes Absolute Auto 1.4 X10*3/uL (1.2-4.9); Lymphocytes Percent Auto 16.5 % (20-40); Mean Corpuscular HGB Conc 33.1 g/dl (31.0-35.0); Mean Corpuscular Hemoglobin 29.2 pg (27.0-33.0); Mean Corpuscular Volume 88.3 fL (80.0-98.0); Monocytes Absolute Auto 0.6 X10*3/uL (0.1-1.2); Monocytes Percent Auto 6.7 % (2-11); Neutrophils Absolute Auto 5.9 x10*3/uL (2.0-8.3); Platelet Count 259 X10*3/uL (160-400); Red Blood Count 3.42 X10*6/uL (4.20-5.50); Red Cell Distribution Width 13.5 % (11.0-16.0); White Blood Count 8.3 X10*3/uL (4.8-10.8)
[2021-06-18 06:27] LABS: INTERNATIONAL NORM RATIO 1.1 (0.9-1.1); Prothrombin Time 12.2 SEC (9.9-13.0)
[2021-06-18 06:36] LABS: Alanine Aminotransferase 10 U/L (0-31); Albumin Level 3.2 g/dL (3.5-5.0); Alkaline Phosphatase 64 U/L (39-117); Anion Gap 13 (12-20); Aspartate Amino Transferase 13 U/L (5-31); Bilirubin Total < 0.2 mg/dL (0.0-1.0); Blood Urea Nitrogen 68 mg/dL (9-16); Calcium 8.8 mg/dL (8.4-10.2); Carbon Dioxide 17 mmol/L (22-29); Chloride 112 mmol/L (96-108); Creatinine Clr Calc Pharmacy 14.6; Estimated Glomerular Filt Rate 13; Glucose Fasting 95 mg/dL (60-99); Potassium 4.3 mmol/L (3.3-5.1); Sodium 138 mmol/L (135-145); Total Protein 6.4 g/dL (6.5-8.0)
[2021-06-18 07:34] VITALS: BP 180/79; PULSE 84; RESP 18; TEMP 36.6; O2SAT 99
[2021-06-18] MEDS: calcitrioL 0.25 MCG CAPSULE PO (09:16)
[2021-06-18] MEDS: glyBURIDE 5 MG TABLET PO (09:16)
[2021-06-18] MEDS: hydrALAZINE HCl 10 MG TABLET PO ×3 (09:16→20:57)
[2021-06-18] MEDS: Aspirin 325 MG TABLET PO (09:17)
[2021-06-18] MEDS: Ascorbic Acid 250 MG TABLET PO (09:17)
[2021-06-18] MEDS: amLODIPine Besylate 5 MG TABLET PO (09:17)
[2021-06-18] MEDS: Ferrous Sulfate 324 MG TABLET.DR PO (09:18)
[2021-06-18] MEDS: Acetaminophen 325 MG TABLET 650 MG PO (09:18)
[2021-06-18] MEDS: Cholecalciferol (Vitamin D3) 25 MCG TABLET 50 MCG PO (09:18)
[2021-06-18] MEDS: Sodium Bicarbonate 650 MG TABLET PO ×2 (09:18→20:58)
[2021-06-18] MEDS: timoloL maleate XE 0.5 % Gel 5 ML DRBTL 1 DROP EYE-RIGHT (09:19)
[2021-06-18] MEDS: Fluticasone Propionate Nasal 16 GM SPRAY 1 SPRAY NOSTRIL-B (09:19)
[2021-06-18] MEDS: prednisoLONE Acetate 1 % Oph Susp 5 ML DRPBTL 1 DROP EYE-BOTH (09:19)
[2021-06-18] MEDS: Atropine Sulfate 1 % Ophth Sol 2 ML BOTTLE 1 DROP EYE-LEFT ×3 (09:19→20:56)
[2021-06-18] MEDS: Heparin Sodium,Porcine/1/2NS 25,000 UNIT/250 ML IV.SOLN 7.46 UNIT IVCONT (09:51)
--- NOTE | 2021-06-18 09:53 | MHC.CLN ---
Addendum entered by Elsie Alves RD 06/18/21 11:08: ALERTED BY NURSING THAT PATIENT WILL NOT ACCEPT DIABETIC DIET. CHANGED BACK TO REGULAR DIET. PATIENT REQUESTING ENSURE CLEAR. ADDED BID TO PROVIDE ADDITIONAL 480 KCAL, 16 GRAMS PROTEIN. Original Note: NUTRITION PATIENT WITH DX DM AND CKD STAGE 4. DIET CHANGED TO DIABETIC 1800 KCAL, 2 GRAM SODIUM.
[2021-06-18 12:04] LABS: PTT Heparin Drip 60.8 SEC (53-77.9)
--- NOTE | 2021-06-18 12:19 | HO.VASCPN ---
Subjective Subjective Date of Service: 06/18/21 Patient reports: no new complaints and pain is less Interval history: Very complex 76-year-old female with that prior history of peripheral vascular disease. She has undergone a femoral to femoral bypass and subsequent toe amputation. She has done well and gone on to heal that amputation. She most recently experience left lower extremity swelling. She subsequently presented to the emergency room and was found to have a DVT. Of note she was on Eliquis at home. If it is unclear if she was compliant with it or taking it on a consistent basis. She did develop this DVT. In general she is fairly noncompliant and has reportedly signed out from several facilities. It is fairly certain that she is not taking medications on a regular basis. She now presents to us for vascular evaluation. Physical Exam Vital Signs: Vital Signs: Last Vital Signs Temp 97.9 F 06/18/21 07:34 Pulse 84 06/18/21 07:34 Resp 18 06/18/21 07:34 BP 180/79 H 06/18/21 07:34 Pulse Ox 99 06/18/21 07:34 BMI result Body Mass Index 25.7 Const: General: cooperative, healthy appearing and comfortable Orientation/consciousness: oriented to person, oriented to place and oriented to time HEENT: Head: Yes normal to inspection Neck: Neck: Yes normal visual inspection Carotids: no bruits Chest: Chest palpation & inspection: normal inspection of the chest Resp: Effort & Inspection: normal respiratory effort and able to speak in complete sentences Auscultation: clear to auscultation bilaterally, no crackles, no rales, no rhonchi and no wheezes Cardio: Rate: regular rate Rhythm: regular rhythm Heart sounds: S1 normal heart sound present and S2 normal heart sound present Bruits: no carotid bruits Peripheral pulses: dorsalis pedis present (Bilateral DP signals) GI: Inspection: Yes normal to inspection Skin: Wounds: no wounds Hair: normal Neuro: General: oriented to person, oriented to place and oriented to time Cranial nerves: Yes CN's II-XII intact bilaterally and Yes Normal hearing present Cognition (Neuro): normal cognition Motor exam (neuro): 5/5 motor strength present throughout Extrem: Other: venous exam: +2 edema left lower extremity General: No clubbing, No cyanosis and No edema Psych: Appearance: grossly normal Mental Status: mental status grossly normal Speech and movement: Normal speech and movement present Progress Note: A&P Assessment and plan (1) DVT (deep venous thrombosis): Status: Acute Plan In short patient has new onset left lower extremity DVT. She has been on Eliquis and it is unclear if she is compliant with that. I have had an extensive discussion with the patient and the hospitalist team. In the interest of safety I do believe placement of an IVC filter will be in her best interest. She will need long-term Coumadin and it is unclear if she will be compliant with that as well. Risks benefits complications of the procedure were discussed in detail with the patient. She is in agreement and would like to move forward with that. We will plan for placement of filter for tomorrow. Thank you for allowing us to assist in her care. Time Spent With Patient Time: Total time spent is greater than 50% in coordination of care (as documented) at patient's floor/unit and/or counseling patient: Procedures Date of Service Date of Service: 06/18/21 Quality Stroke Does the patient have a stroke diagnosis?: No VTE Prior VTE?: Yes VTE Risk Level:: Medical - moderate - high VTE Device Contraindication: Treatment Not Indicated VTE Drug Contraindication: N/A - Med Ordered
--- NOTE | 2021-06-18 12:49 | CONS_ITS ---
DATE OF SERVICE: 06/17/2021 HISTORY OF PRESENT ILLNESS: This is a 76-year-old patient with a history of advanced chronic kidney disease followed by Dr. Carey, who presented to the hospital with worsening lower extremity edema, noted to have an elevated serum creatinine above her baseline. The patient at the time of consultation denies any chest pain or shortness of breath. She denies any nausea, vomiting, or diarrhea. She has been complaining of worsening lower extremity edema, although she has been on Eliquis. PAST MEDICAL HISTORY: Remarkable for chronic kidney disease stage 4, diabetes mellitus, hypertension, history of DVT, anemia, coronary artery disease, diabetic foot infection, peripheral arterial disease. MEDICATIONS: As an outpatient included: 1. Prednisolone. 2. Amlodipine. 3. Iron sulfate. 4. Magnesium oxide. 5. . 6. Apixaban. 7. Aspirin. 8. Glimepiride. She is not on IV medications. SOCIAL HISTORY: Does not smoke. FAMILY HISTORY: Negative. REVIEW OF SYSTEMS: 10-point review is negative except for pertinent in History of Present Illness. PHYSICAL EXAMINATION: VITAL SIGNS: Blood pressure is 178/77, heart rate 88, respiratory rate 18, temperature 98.8. CONSTITUTIONAL: Looks as stated age. No acute distress. NEUROLOGIC: Alert, awake. HEENT: Head is normocephalic. NECK: Supple. LUNGS: Good air entry bilaterally. CARDIOVASCULAR: S1, S2. No rub. ABDOMEN: Soft, obese, nontender. EXTREMITIES: With peripheral edema. LABORATORY DATA: Showed a white count 8.5, hemoglobin 9.7, platelet count 240. Sodium 139, potassium 4.4, chloride 115, bicarbonate 14, BUN 66, creatinine 3.53. IMPRESSION: 1. Chronic kidney disease stage 4. 2. Metabolic acidosis. 3. Hypertension. 4. Anemia. PLAN: This patient with advanced chronic kidney disease due to underlying diabetic and hypertensive nephrosclerosis with a baseline serum creatinine around 3 mg/dL. Serum creatinine is slightly above her baseline, which could be due to progression of underlying diabetic and hypertensive kidney disease. She has a metabolic acidosis with normal anion gap. She is anemic due to underlying chronic kidney disease. I would start her on sodium bicarbonate. Medicate for GFR less than 30 mL/minute and follow closely up kidney function as well. MD LORAINE Cunha/NEENA / [id number]
[2021-06-18 15:31] VITALS: BP 195/86; PULSE 84; RESP 18; TEMP 36.4; O2SAT 97
--- NOTE | 2021-06-18 15:51 | HO.PM.IMPN ---
Subjective Subjective Date of Service: 06/18/21 Review of Systems Denies chest pain Denies shortness of breath Denies nausea vomiting diarrhea Admits left lower extremity edema that has worsened Physical Exam Vital Signs: Vital Signs: Last Vital Signs Temp 97.6 F 06/18/21 15:31 Pulse 84 06/18/21 15:31 Resp 18 06/18/21 15:31 BP 195/86 H 06/18/21 15:31 Pulse Ox 97 06/18/21 15:31 BMI result Body Mass Index 25.7 Const: Other: Awake alert no acute distress Resp: Other: Clear to auscultation bilaterally no rales rhonchi or wheezes Cardio: Other: No S4; positive S1-S2; no S3 murmurs rubs or gallops GI: Other: Soft nondistended normoactive bowel sounds x4 quadrants Extrem: Other: Left lower extremity greater than right lower extremity 3:1 Objective Data Active Medications Acetaminophen (Acetaminophen 325 Mg Tablet) 650 mg PO Q6H PRN PRN Reason: Pain, Mild (Pain Scale 1-3) Last Admin: 06/18/21 09:18 Dose: 650 mg Documented by: BETHANY Amlodipine Besylate (Amlodipine Besylate 5 Mg Tablet) 5 mg PO DAILY [facility]; Protocol Last Admin: 06/18/21 09:17 Dose: 5 mg Documented by: BETHANY Ascorbic Acid (Ascorbic Acid 250 Mg Tablet) 250 mg PO DAILY [facility] Last Admin: 06/18/21 09:17 Dose: 250 mg Documented by: BETHANY Aspirin (Aspirin 325 Mg Tablet) 325 mg PO DAILY [facility] Last Admin: 06/18/21 09:17 Dose: 325 mg Documented by: BETHANY Atorvastatin Calcium (Atorvastatin Calcium 80 Mg Tablet) 80 mg PO BEDTIME [facility] Last Admin: 06/17/21 21:13 Dose: Not Given Documented by: MAHSA Non-Admin Reason: Patient Refused Atropine Sulfate (Atropine Sulfate 1 % Oph Jacki 2 Ml Bottle) 1 drop EYE-LEFT TID [facility] Last Admin: 06/18/21 15:37 Dose: 1 drop Documented by: MAHSA Calcitriol (Calcitriol 0.25 Mcg Capsule) 0.25 mcg PO DAILY [facility] Last Admin: 06/18/21 09:16 Dose: 0.25 mcg Documented by: BETHANY Ferrous Sulfate (Ferrous Sulfate 324 Mg Tablet.) 324 mg PO DAILY [facility] Last Admin: 06/18/21 09:18 Dose: 324 mg Documented by: BETHANY Fluticasone Propionate (Fluticasone Propionate Nasal 16 Gm [place]) 1 spray NOSTRIL-B DAILY [facility] Last Admin: 06/18/21 09:19 Dose: 1 spray Documented by: BETHANY Glyburide (Glyburide 5 Mg Tablet) 5 mg PO DAILY [facility] Last Admin: 06/18/21 09:16 Dose: 5 mg Documented by: BETHANY Heparin Sodium (Porcine) (Heparin Sodium,Porcine 5,000 Unit/Ml Vial) 3,000 unit 40 unit/kg (3000 unit) IVPUSH PROTOCOL BOLUS PRN; Protocol PRN Reason: 40 unit/kg - Heparin Protocol Last Admin: 06/17/21 08:55 Dose: 3,000 unit Documented by: BETHANY Heparin Sodium (Porcine) (Heparin Sodium,Porcine 5,000 Unit/Ml Vial) 6,000 unit 80 unit/kg (6000 unit) IVPUSH PROTOCOL BOLUS PRN; Protocol PRN Reason: 80 unit/kg - Heparin Protocol Hydralazine HCl (Hydralazine Hcl 10 Mg Tablet) 10 mg PO TID [facility]; Protocol Last Admin: 06/18/21 15:33 Dose: 10 mg Documented by: MAHSA Heparin Sodium/Sodium Chloride () 25,000 unit in 250 mls @ 0 mls/hr IVCONT .Q0M [facility]; Protocol Last Titration: 06/18/21 12:21 Dose: 10 units/kg/hr, 7.46 mls/hr Documented by: BETHANY Cosigned by: SUSAN Pharmacy Consult (Consult Rx Perform Med Rec) 1 each MISCELLANE ONCE PRN PRN Reason: Consult order Pharmacy Consult (Consult Rx Perform Med Rec) 1 each MISCELLANE ONCE PRN PRN Reason: Consult order Prednisolone Acetate (Prednisolone Acetate 1 % Oph Susp 5 Ml Drpbtl) 1 drop EYE-BOTH DAILY [facility] Last Admin: 06/18/21 09:19 Dose: 1 drop Documented by: BETHANY Sodium Bicarbonate (Sodium Bicarbonate 650 Mg Tablet) 650 mg PO BID [facility] Last Admin: 06/18/21 09:18 Dose: 650 mg Documented by: BETHANY Sodium Chloride (0.9 % Sodium Chloride Flush 3 Ml Syringe) 3 ml IVFLUSH QSHIFT [facility] Last Admin: 06/18/21 15:33 Dose: Not Given Documented by: MAHSA Non-Admin Reason: IV Running Timolol Maleate (Timolol Maleate Xe 0.5 % Gel 5 Ml Drbtl) 1 drop EYE-RIGHT DAILY [facility] Last Admin: 06/18/21 09:19 Dose: 1 drop Documented by: BETHANY Vitamin D (Cholecalciferol (Vitamin D3) 25 Mcg Tablet) 50 mcg PO DAILY [facility] Last Admin: 06/18/21 09:18 Dose: 50 mcg Documented by: BETHANY Labs CBC & Chem 7: 06/18/21 05:20 06/18/21 05:20 Labs: Laboratory Results - last 24 hr 06/17/21 06/17/21 06/18/21 15:43 22:02 04:39 MCV MCH MCHC RDW Plt Count MPV Immature Gran % (Auto) Neut % (Auto) Lymph % (Auto) [place] % (Auto) Eos % (Auto) Baso % (Auto) Lymph # (Auto) [place] # (Auto) Eos # (Auto) Baso # (Auto) Abs Immat Gran (auto) Absolute Neuts (auto) Absolute Nucleated RBC Nucleated RBC % (auto) PT INR aPTT Heparin Protocol 74.3 78.2 H Anion Gap Estim Creat Clear Calc Estimated GFR POC Glucose 165 H Fasting Glucose Calcium Total Bilirubin AST ALT Alkaline Phosphatase Total Protein Albumin 06/18/21 06/18/21 06/18/21 05:20 05:20 05:20 MCV 88.3 MCH 29.2 MCHC 33.1 RDW 13.5 Plt Count 259 MPV 10.0 Immature Gran % (Auto) 0.5 H Neut % (Auto) 71.0 Lymph % (Auto) 16.5 L [place] % (Auto) 6.7 Eos % (Auto) 4.7 H Baso % (Auto) 0.6 Lymph # (Auto) 1.4 [place] # (Auto) 0.6 Eos # (Auto) 0.4 Baso # (Auto) 0.1 Abs Immat Gran (auto) 0.04 H Absolute Neuts (auto) 5.9 Absolute Nucleated RBC 0.000 Nucleated RBC % (auto) 0.0 PT 12.2 INR 1.1 aPTT Heparin Protocol Anion Gap 13 Estim Creat Clear Calc 14.6 Estimated GFR 13 POC Glucose Fasting Glucose 95 Calcium 8.8 Total Bilirubin < 0.2 AST 13 ALT 10 Alkaline Phosphatase 64 Total Protein 6.4 L Albumin 3.2 L 06/18/21 11:38 MCV MCH MCHC RDW Plt Count MPV Immature Gran % (Auto) Neut % (Auto) Lymph % (Auto) [place] % (Auto) Eos % (Auto) Baso % (Auto) Lymph # (Auto) [place] # (Auto) Eos # (Auto) Baso # (Auto) Abs Immat Gran (auto) Absolute Neuts (auto) Absolute Nucleated RBC Nucleated RBC % (auto) PT INR aPTT Heparin Protocol 60.8 D Anion Gap Estim Creat Clear Calc Estimated GFR POC Glucose Fasting Glucose Calcium Total Bilirubin AST ALT Alkaline Phosphatase Total Protein Albumin Assessment and Plan (1) DVT (deep venous thrombosis): Status: Acute (2) Anemia: Status: Acute (3) CKD (chronic kidney disease) stage 4, GFR 15-29 ml/min: Status: Acute Plan 76-year-old female with known history of left lower extremity DVT presents after signing out AMA from rehab. Presents to [facility] where hemoglobin was found to be 7 and left lower extremity is 3 times the size of the right despite Eliquis. 1. Left leg DVT.........(Deep venous thrombosis of the entire left leg veins from the common femoral through popliteal and posterior tibial veins.) -switch to IV heparin drip. . . Eliquis failure -IVC filter in am 2. Anemia -acute on chronic -acceptable response to transfusion -follow hemoglobin in a.m. 3. CKD -at baseline -follow renals/divalents 4.DMII -continue outpatient therapy -refuses a list pro correctional scale as well as diabetic diet. Understands risks Full code Eliquis Will require IV heparin for failed Eliquis; entire deep vein system on left thrombosed Quality Stroke Does the patient have a stroke diagnosis?: No VTE Prior VTE?: Yes VTE Risk Level:: Medical - moderate - high VTE Device Contraindication: Treatment Not Indicated VTE Drug Contraindication: N/A - Med Ordered
[2021-06-18 19:23] LABS: PTT Heparin Drip 63.2 SEC (53-77.9)
[2021-06-18 19:45] VITALS: BP 155/72; PULSE 87; RESP 18; TEMP 36.3; O2SAT 98
--- NOTE | 2021-06-18 21:43 | P.PNNP_ITS ---
Subjective Subjective Date of Service: 06/18/21 Interval history: seen and examined Physical Exam Vital Signs: Vital Signs: Last Vital Signs Temp 97.3 F 06/18/21 19:45 Pulse 87 06/18/21 19:45 Resp 18 06/18/21 19:45 BP 155/72 H 06/18/21 19:45 Pulse Ox 98 06/18/21 19:45 BMI result Body Mass Index 25.7 Const: General: cooperative and no acute distress Orientation/consciousness: patient oriented x3 HEENT: Head: Yes normocephalic and Yes atraumatic Neck: Neck: Yes no JVD Resp: Auscultation: clear to auscultation bilaterally Cardio: Jugular venous distension: no JVD Rate: regular rate Rhythm: reg ular rhythm Heart sounds: S1 normal heart sound present and S2 normal heart sound present GI: Auscultation: normal bowel sounds Neuro: General: patient oriented x3 and no focal motor deficits Extrem: General: Yes no clubbing, cyanosis or edema Objective Data Labs CBC & Chem 7: 06/18/21 05:20 06/18/21 05:20 Labs: Laboratory Results - last 24 hr 06/17/21 06/18/21 06/18/21 22:02 04:39 05:20 WBC 8.3 RBC 3.42 L Hgb 10.0 L Hct 30.2 L MCV 88.3 MCH 29.2 MCHC 33.1 RDW 13.5 Plt Count 259 MPV 10.0 Immature Gran % (Auto) 0.5 H Neut % (Auto) 71.0 Lymph % (Auto) 16.5 L [place] % (Auto) 6.7 Eos % (Auto) 4.7 H Baso % (Auto) 0.6 Lymph # (Auto) 1.4 [place] # (Auto) 0.6 Eos # (Auto) 0.4 Baso # (Auto) 0.1 Abs Immat Gran (auto) 0.04 H Absolute Neuts (auto) 5.9 Absolute Nucleated RBC 0.000 Nucleated RBC % (auto) 0.0 PT INR aPTT Heparin Protocol 74.3 78.2 H Sodium Potassium Chloride Carbon Dioxide Anion Gap BUN Creatinine Estim Creat Clear Calc Estimated GFR Fasting Glucose Calcium Total Bilirubin AST ALT Alkaline Phosphatase Total Protein Albumin 06/18/21 06/18/21 06/18/21 05:20 05:20 11:38 WBC RBC Hgb Hct MCV MCH MCHC RDW Plt Count MPV Immature Gran % (Auto) Neut % (Auto) Lymph % (Auto) [place] % (Auto) Eos % (Auto) Baso % (Auto) Lymph # (Auto) [place] # (Auto) Eos # (Auto) Baso # (Auto) Abs Immat Gran (auto) Absolute Neuts (auto) Absolute Nucleated RBC Nucleated RBC % (auto) PT 12.2 INR 1.1 aPTT Heparin Protocol 60.8 D Sodium 138 Potassium 4.3 Chloride 112 H Carbon Dioxide 17 L Anion Gap 13 BUN 68 H Creatinine 3.39 H Estim Creat Clear Calc 14.6 Estimated GFR 13 Fasting Glucose 95 Calcium 8.8 Total Bilirubin < 0.2 AST 13 ALT 10 Alkaline Phosphatase 64 Total Protein 6.4 L Albumin 3.2 L 06/18/21 18:50 WBC RBC Hgb Hct MCV MCH MCHC RDW Plt Count MPV Immature Gran % (Auto) Neut % (Auto) Lymph % (Auto) [place] % (Auto) Eos % (Auto) Baso % (Auto) Lymph # (Auto) [place] # (Auto) Eos # (Auto) Baso # (Auto) Abs Immat Gran (auto) Absolute Neuts (auto) Absolute Nucleated RBC Nucleated RBC % (auto) PT INR aPTT Heparin Protocol 63.2 Sodium Potassium Chloride Carbon Dioxide Anion Gap BUN Creatinine Estim Creat Clear Calc Estimated GFR Fasting Glucose Calcium Total Bilirubin AST ALT Alkaline Phosphatase Total Protein Albumin Procedures Date of Service Date of Service: 06/18/21 Assessment & Plan Assessment and plan (1) Metabolic acidosis: Status: Acute (2) CKD (chronic kidney disease) stage 4, GFR 15-29 ml/min: Status: Acute (3) HTN (hypertension): Status: Acute Plan known severe CKD due to HTN/DM baseline Scr ~ 3 mg/dl non anion gap metabolic acidosis - Improving with current Na-HCO3 regimen. type IV RTA REC sodium bicarbonate 650 mg bid dose medications for eGFR < 30 ml/min S-Cr slowly improving. follow kidney function and electrolytes Time Spent With Patient Time: Total time spent is greater than 50% in coordination of care (as documented) at patient's floor/unit and/or counseling patient: Progress Note: Quality Stroke Does the patient have a stroke diagnosis?: No
[2021-06-18 23:50] VITALS: BP 176/79; PULSE 90; RESP 18; TEMP 36.4; O2SAT 99
[2021-06-19] VITALS (10 sets, daily range): BP systolic 155–200; BP diastolic 70–89; PULSE 76–92; RESP 11–20; TEMP 36.1–37.1; O2SAT 97–100
[2021-06-19] MEDS: 0.9 % Sodium Chloride Flush 3 ML SYRINGE IVFLUSH (00:11)
[2021-06-19 06:32] LABS: MANUAL DIFF FLAG NO
[2021-06-19 06:36] LABS: Basophils Absolute Auto 0.1 X10*3/uL (0.0-0.2); Basophils Percent Auto 0.7 % (0-2); Eosinophils Absolute Auto 0.3 X10*3/uL (0.0-0.4); Eosinophils Percent Auto 4.5 % (0-4); Hematocrit 29.6 % (37.0-47.0); Hemoglobin 9.7 g/dl (12.0-16.0); Imm Gran Abs Auto 0.03 X10*3/uL (0.00-0.03); Imm Gran Pct Auto 0.4 % (0.0-0.4); Lymphocytes Absolute Auto 1.1 X10*3/uL (1.2-4.9); Lymphocytes Percent Auto 16.3 % (20-40); Mean Corpuscular HGB Conc 32.8 g/dl (31.0-35.0); Mean Corpuscular Hemoglobin 29.2 pg (27.0-33.0); Mean Corpuscular Volume 89.2 fL (80.0-98.0); Mean Platelet Volume 9.7 fL (9.4-12.3); Monocytes Absolute Auto 0.5 X10*3/uL (0.1-1.2); Monocytes Percent Auto 6.7 % (2-11); Neutrophils Absolute Auto 4.9 x10*3/uL (2.0-8.3); Neutrophils Percent Auto 71.4 % (45-73); Platelet Count 245 X10*3/uL (160-400); Red Blood Count 3.32 X10*6/uL (4.20-5.50); Red Cell Distribution Width 13.4 % (11.0-16.0); White Blood Count 6.9 X10*3/uL (4.8-10.8)
[2021-06-19 07:02] LABS: Alanine Aminotransferase 10 U/L (0-31); Albumin Level 3.2 g/dL (3.5-5.0); Alkaline Phosphatase 63 U/L (39-117); Anion Gap 14 (12-20); Aspartate Amino Transferase 11 U/L (5-31); Bilirubin Total < 0.2 mg/dL (0.0-1.0); Blood Urea Nitrogen 64 mg/dL (9-16); Carbon Dioxide 17 mmol/L (22-29); Chloride 112 mmol/L (96-108); Creatinine Clr Calc Pharmacy 14.5; Estimated Glomerular Filt Rate 13; Glucose Fasting 116 mg/dL (60-99); Potassium 4.6 mmol/L (3.3-5.1); Sodium 138 mmol/L (135-145); Total Protein 6.3 g/dL (6.5-8.0)
[2021-06-19 07:05] LABS: PTT Heparin Drip 34.5 SEC (53-77.9)
--- NOTE | 2021-06-19 07:25 | PC.NURSE ---
PATIENT TRANSFERRED VIA BED TO [facility] FOR PLANNED PROCEDURE BY A[facility]ILL OPERATOR AND NURSING REPRESENTATIVE AT 0710. DAY RN MADE AWARE
--- NOTE | 2021-06-19 07:40 | PC.NURSE ---
HEPARIN DRIP SHUT OFF AT 0000 ORDERED FOR AM PLANNED PROCEDURE....LATE ENTRY
--- NOTE | 2021-06-19 09:38 | W.PM.OPN ---
Operative Note Operative Note Date of Service: 06/19/21 Narrative: Angiogram report from [facility] Preoperative diagnosis: DVT Postoperative diagnosis: Same Procedure: 1. Ultrasound-guided right common femoral access 2. Inferior vena cavogram 3. Insertion of vena cava filter Surgeon:Mateo Blood M.D., FACS, RPVI Unarmed Security Officer:None Anesthesia: Local with moderate conscious sedation. Total intraservice moderate sedation time was 22 minutes. I monitored the patient's level of consciousness and physiologic status continuously throughout the procedure. Specimens:none Drains:none Estimated blood loss: Less than 10 ml Implant: [place] IVC filter Indications: 76-year-old female with known history of peripheral vascular disease presented to the hospital with left lower extremity swelling. Upon workup she was noted to have a left lower extremity DVT while on Eliquis. It appears to be a failure of anticoagulation. She now presents for IVC filter placement. The patient has signed the informed consent after reviewing risks, complications, benefits, and alternatives previously discussed with the patient. The patient was given the opportunity to ask any additional questions or voice any concerns. All questions were answered to the patient's satisfaction. Procedure in detail: Patient was brought to the angiography suite prior to which a time-out was called for patient identification and site verification. Bilateral groins were prepped and draped in the standard surgical fashion. Under ultrasound guidance right common femoral vein was punctured with micro puncture needle and wire. Subsequently a precision 6 Tamazight sheath was then placed. Bentson wire was advanced to the level of the vena cava. Through the sheath vena cavogram was undertaken. We were easily able to identify the left renal vein. We then tried to advance the filter sheath over the Bentson wire and it would not track. We subsequently exchanged out for an 035 glidewire Advantage wire. And we subsequently dilated up with a 6 Tamazight in 7 Tamazight dilator and subsequently a short 8 Tamazight sheath. After this we were able to advanced the filter sheath up to the level of the inferior vena cava we parked this just below the left renal. We then subsequently deployed the [place] vena cava filter. Completion angiogram demonstrated excellent result. Sheath was removed and direct pressure was held for 10 minutes. Interpretation of films: 1. Ultrasound demonstrates appropriate femoral puncture. Image of which was saved. 2. Vena cavogram demonstrated no evidence of thrombus and less than 3 cm 3. Post filter imaging demonstrated appropriate IVC filter placement Conclusion: 1. IVC filter placement 2. Anticoagulation status: Resume prior anticoagulation after 13:00 This note is constructed using voice recognition software. While every effort has been made to ensure accuracy, electrical logging engineer errors may have been included. Thank you for allowing me to participate in the care of your patient. Yours sincerely, Mateo Blood MD, FACS, R.P.V.I.
[2021-06-19] MEDS: Acetaminophen 325 MG TABLET 650 MG PO (09:55)
[2021-06-19] MEDS: Morphine Sulfate 4 MG/ML CARTRIDGE IVPUSH (09:59)
[2021-06-19] MEDS: hydrALAZINE HCl 10 MG TABLET PO ×3 (10:01→20:54)
[2021-06-19] MEDS: amLODIPine Besylate 5 MG TABLET PO (10:02)
--- NOTE | 2021-06-19 11:32 | PM.HEMONCCN ---
Subjective - Subjective Chief complaint: Left leg swelling Patient: new to practice Consult date: 06/19/21 Requesting Physician: Dr. Bradshaw Primary Care Provider: Unknown Physician HPI - Consult Narrative Reason for consult: Left lower extremity DVT Narrative: Vesta Vences is a 76 year old female who has been admitted for worsening anemia, renal failure and progression of left lower extremity DVT. Patient states that in the middle of May she fell at a grocery store injuring her left leg. She immediately went to emergency room at [facility] for pain and swelling, she was advised to take Tylenol which she did for a few days. She subsequently when back on 06/01/2021 her worsening pain and swelling to [facility] ER. At that time she underwent Doppler, which revealed extensive clot in her leg. She was admitted for a couple of days when she was on IV heparin, she was then started on Eliquis 10 mg b.i.d. and discharged to a half-way. She states that she has been taking medications all along, after a few days of 10 mg b.i.d. of Eliquis she was switched to 5 mg b.i.d.. However she noticed that her left leg continued to feel swollen and it actually got worse when her dose was lowered to 5 mg twice daily. She decided to call the ambulance and leave AMA from the half-way. She was admitted at [facility], she was given blood transfusion and started on IV heparin. She has had an IVC filter placed. Hematology consultation has been called for further recommendations. Patient states that this is her 1st episode of DVT, she was never on anticoagulation before May 2021. There is no family history of DVT that she can recall. Review of Systems - Constitutional Reports as per HPI, Reports no additional constitutional complaints - Cardiovascular Reports no additional cardiovascular complaints - Respiratory Reports no additional respiratory complaints - Gastrointestinal Reports no additional gastrointestinal complaints - Neurologic Reports hearing normal ON LICENSE OF [facility] Medical History: Medical History (Last Updated 06/16/21 @ 16:22 by Александр Cramer DO) Abnormal myocardial perfusion study Anemia Blind Chest pain CKD (chronic kidney disease) Constipation Coronary artery disease Diabetes Diabetic foot infection DVT (deep venous thrombosis) Essential hypertension Normocytic anemia PAD (peripheral artery disease) UTI due to Klebsiella species Social History: Social History (Last Reviewed 06/16/21 @ 16:20 by Александр Cramer DO) Living Situation History: Household Members: Other Housing: Other Housing Other:: rehab Do you presently have visiting nurse or other home services: No Tobacco History: Patient Tobacco Use Status: Never used Tobacco Second Hand Smoke Exposure: No Occupation Assessmet: service: No Current occupational status: disabled Home Medications and Allergies Current Medications: Current Medications Acetaminophen (Acetaminophen 325 Mg Tablet) 650 mg PO Q6H PRN PRN Reason: Pain, Mild (Pain Scale 1-3) Last Admin: 06/19/21 09:55 Dose: 650 mg Documented by: Amlodipine Besylate (Amlodipine Besylate 5 Mg Tablet) 5 mg PO DAILY [facility]; Protocol Last Admin: 06/19/21 10:02 Dose: 5 mg Documented by: Ascorbic Acid (Ascorbic Acid 250 Mg Tablet) 250 mg PO DAILY [facility] Last Admin: 06/18/21 09:17 Dose: 250 mg Documented by: Aspirin (Aspirin 325 Mg Tablet) 325 mg PO DAILY [facility] Last Admin: 06/18/21 09:17 Dose: 325 mg Documented by: Atorvastatin Calcium (Atorvastatin Calcium 80 Mg Tablet) 80 mg PO BEDTIME [facility] Last Admin: 06/18/21 20:58 Dose: Not Given Documented by: Atropine Sulfate (Atropine Sulfate 1 % Ophth Jacki 2 Ml Bottle) 1 drop EYE-LEFT TID [facility] Last Admin: 06/18/21 20:56 Dose: 1 drop Documented by: Calcitriol (Calcitriol 0.25 Mcg Capsule) 0.25 mcg PO DAILY [facility] Last Admin: 06/18/21 09:16 Dose: 0.25 mcg Documented by: Ferrous Sulfate (Ferrous Sulfate 324 Mg Tablet.Dr) 324 mg PO DAILY [facility] Last Admin: 06/18/21 09:18 Dose: 324 mg Documented by: Fluticasone Propionate (Fluticasone Propionate Nasal 16 Gm [place]) 1 spray NOSTRIL-B DAILY [facility] Last Admin: 06/18/21 09:19 Dose: 1 spray Documented by: Glyburide (Glyburide 5 Mg Tablet) 5 mg PO DAILY [facility] Last Admin: 06/18/21 09:16 Dose: 5 mg Documented by: Heparin Sodium (Porcine) (Heparin Sodium,Porcine 5,000 Unit/Ml Vial) 3,000 unit 40 unit/kg (3000 unit) IVPUSH PROTOCOL BOLUS PRN; Protocol PRN Reason: 40 unit/kg - Heparin Protocol Last Admin: 06/17/21 08:55 Dose: 3,000 unit Documented by: Heparin Sodium (Porcine) (Heparin Sodium,Porcine 5,000 Unit/Ml Vial) 6,000 unit 80 unit/kg (6000 unit) IVPUSH PROTOCOL BOLUS PRN; Protocol PRN Reason: 80 unit/kg - Heparin Protocol Hydralazine HCl (Hydralazine Hcl 10 Mg Tablet) 10 mg PO TID [facility]; Protocol Last Admin: 06/19/21 10:01 Dose: 10 mg Documented by: Heparin Sodium/Sodium Chloride () 25,000 unit in 250 mls @ 0 mls/hr IVCONT .Q0M [facility]; Protocol Last Titration: 06/19/21 00:00 Dose: 0 units/kg/hr, 0 mls/hr Documented by: Morphine Sulfate (Morphine Sulfate 4 Mg/Ml Cartridge) 4 mg IVPUSH Q2H PRN; Protocol PRN Reason: Pain, Severe (Pain Scale 7-10) Last Admin: 06/19/21 09:59 Dose: 4 mg Documented by: Oxycodone HCl (Oxycodone Hcl Immed Release 5 Mg Tablet) 5 mg PO Q4H PRN PRN Reason: Pain, Moderate (Pain Scale 4-6 Pharmacy Consult (Consult Rx Perform Med Rec) 1 each MISCELLANE ONCE PRN PRN Reason: Consult order Pharmacy Consult (Consult Rx Perform Med Rec) 1 each MISCELLANE ONCE PRN PRN Reason: Consult order Prednisolone Acetate (Prednisolone Acetate 1 % Oph Susp 5 Ml Drpbtl) 1 drop EYE-BOTH DAILY [facility] Last Admin: 06/18/21 09:19 Dose: 1 drop Documented by: Sodium Bicarbonate (Sodium Bicarbonate 650 Mg Tablet) 650 mg PO BID [facility] Last Admin: 06/18/21 20:58 Dose: 650 mg Documented by: Sodium Chloride (0.9 % Sodium Chloride Flush 3 Ml Syringe) 3 ml IVFLUSH QSHIFT [facility] Last Admin: 06/19/21 00:11 Dose: 3 ml Documented by: Timolol Maleate (Timolol Maleate Xe 0.5 % Gel 5 Ml Drbtl) 1 drop EYE-RIGHT DAILY [facility] Last Admin: 06/18/21 09:19 Dose: 1 drop Documented by: Vitamin D (Cholecalciferol (Vitamin D3) 25 Mcg Tablet) 50 mcg PO DAILY [facility] Last Admin: 06/18/21 09:18 Dose: 50 mcg Documented by: Home Medications Medication Instructions Recorded Confirmed Type atropine 1 % eye drops 1 drp OPHTHALMIC-LEFT TID 03/06/21 05/07/22 History prednisolone acetate 1 % eye 1 drp OPHTHALMIC (EYE) DAILY 04/15/20 06/16/21 History drops,suspension calcitriol 0.25 mcg capsule 0.25 mcg PO DAILY 07/27/20 06/16/21 History cyanocobalamin (vitamin B-12) 1,000 mcg IM QMONTH 07/27/20 06/16/21 History 1,000 mcg/mL injection kit glyburide 5 mg tablet 5 mg PO DAILY 07/27/20 06/16/21 History ascorbic acid (vitamin C) 500 mg 250 mg PO DAILY 03/01/21 06/16/21 History tablet cholecalciferol (vitamin D3) 25 50 mcg PO DAILY 03/01/21 06/16/21 History mcg (1,000 unit) tablet ferrous sulfate 325 mg (65 mg 325 mg PO DAILY 03/01/21 06/16/21 History iron) tablet fluticasone propionate 50 1 spray INTRANASAL DAILY 03/01/21 06/16/21 History mcg/actuation nasal spray,suspension timolol maleate 0.25 % eye drops 1 drp OPHTHALMIC-RIGHT DAILY 03/02/21 06/16/21 History amlodipine 5 mg tablet 5 mg PO DAILY 06/16/21 06/16/21 History apixaban 5 mg tablet 5 mg PO BID 06/16/21 06/16/21 History aspirin 325 mg tablet 325 mg PO DAILY 06/16/21 06/16/21 History atorvastatin 80 mg tablet 80 mg PO BEDTIME 06/16/21 06/16/21 History sodium bicarbonate 650 mg tablet 650 mg PO BID 06/16/21 06/16/21 History vitamin E 400 unit capsule 400 unit PO DAILY 06/16/21 06/16/21 History Allergies Allergy/AdvReac Type Severity Reaction Status Date / Time No Known Allergies Allergy Verified 06/16/21 14:06 [No Known Allergies*] Physical Exam Vital signs: Vital Signs Temp 97.9 F 06/19/21 10:33 Pulse 92 06/19/21 10:33 Resp 18 06/19/21 10:33 BP 188/82 H 06/19/21 10:33 Pulse Ox 99 06/19/21 10:33 Intake & Output 06/18/21 06/19/21 06/19/21 18:59 06:59 18:59 Intake Total 774.831 / 861.740 86.909 / 861.740 Balance 774.831 / 861.740 86.909 / 861.740 Intake: Intake, Oral Amount 720 / 720 Intake, IV Amount 54.831 / 141.740 86.909 / 141.740 Heparin Sodium,Porcine/1/2NS 25 54.831 / 141.740 86.909 / 141.740 ,000 unit In 250 ml @ Per Protocol IVCONT .Q0M [facility] Rx#: [id number] Other: Breakfast % Eaten 100% Lunch % Eaten 100% Number of Unmeasured Voids 4 2 Number of Bowel Movements 1 Urine Bedpan Bedpan Urine Color Yellow Stool Bedpan Stool Amount Large Stool Color Brown Stool Consistency Loose Weight 74.6 kg - Constitutional Present: no acute distress - Routine HEENT Exam Head: Present: normal inspection - Routine Neck Exam Present: supple Comments: Lipoma on the right side of neck - Detailed Neck Exam: Thyroid Comments: Large lipoma on the right side of neck - Routine Respiratory Exam Absent: respiratory distress - Routine Cardiovascular Exam Cardiovascular: Present: S1, S2 - Routine Abdominal Exam Present: soft - Routine Extremities Exam Present: pulses intact Comments: Swelling of right leg and thigh - Routine Skin Exam Present: intact - Routine Neurological Exam Present: alert, oriented X3 Hem/Onc Consult Result - Labs CBC & Chem 7: 06/19/21 06:17 06/19/21 06:17 Labs: Short CBC 06/19/21 Range/Units 06:17 WBC 6.9 (4.8-10.8) X10*3/uL Hgb 9.7 L (12.0-16.0) g/dl Hct 29.6 L (37.0-47.0) % Plt Count 245 (160-400) X10*3/uL BMP 06/19/21 06:17 Sodium 138 Potassium 4.6 Chloride 112 H Carbon Dioxide 17 L BUN 64 H Creatinine 3.43 H Calcium 9.0 Liver Function 06/19/21 Range/Units 06:17 Total Bilirubin < 0.2 (0.0-1.0) mg/dL AST 11 (5-31) U/L ALT 10 (0-31) U/L Alkaline Phosphatase 63 (39-117) U/L Albumin 3.2 L (3.5-5.0) g/dL Assessment and Plan Patient Active problem list reviewed?: Yes (1) DVT (deep venous thrombosis) Status: Acute Assessment and plan: 1. This is a 76-year-old woman diagnosed with extensive right lower extremity DVT in May 2021. She suffered a fall and a few days later presented to the ED at [facility], Doppler on 06/01/2021 revealed extensive DVT. She was admitted briefly where anticoagulation was initiated on unfractionated heparin and later switched to Eliquis 10 mg b.i.d.. After a week she was switched to 5 mg Eliquis b.i.d., she was at a half-way by this time and she complained of worsening swelling of the right leg. She came to [facility], Doppler performed on 06/16/2021 revealed DVT of the entire left leg veins from common femoral through popliteal and posterior tibial veins. However, this Doppler was not compared to the 1 performed in [facility] on 06/01/2021. It is therefore unclear if she has had a true failure of Eliquis but patient is convinced that her leg pain and swelling got worse while on Eliquis. Since she has chronic stage IV kidney disease, the efficacy of DOAC's is not known well. Most of the studies /clinical trials excluded patients with this degree of renal failure. I discussed with the patient about anticoagulation with warfarin which would probably be better although it does require INR monitoring which would be cumbersome for her. Duration of anticoagulation would be 3-6 months since the event appears to have been triggered by a fall/trauma and brief immobilization. The IVC filter would also have to be removed if she comes off anticoagulation. I thank you for this consultation. - Time Spent With Patient Time Spent with Patient (in minutes): 15
[2021-06-19] MEDS: Heparin Sodium,Porcine/1/2NS 25,000 UNIT/250 ML IV.SOLN 7.46 UNIT IVCONT (13:03)
--- NOTE | 2021-06-19 13:10 | PC.NURSE ---
Patients Heparin gtt stopped at midnight for a procedure. Per Dr. Blood, restart Heparin gtt at 1300. Verified with Pharmacy and Dr Bradshaw to restart Heparin gtt at previous rate and redraw PTT HD now. Start protocol from there. Heparin gtt now going at 10units/kg/hr or 7.46mls/hr. PTT order in stat.
[2021-06-19 14:22] LABS: PTT Heparin Drip 44.8 SEC (53-77.9)
[2021-06-19] MEDS: Heparin Sodium,Porcine 5,000 UNIT/ML VIAL 3000 UNIT IVPUSH (14:34)
[2021-06-19] MEDS: Atropine Sulfate 1 % Ophth Sol 2 ML BOTTLE 1 DROP EYE-LEFT ×2 (14:43→21:00)
--- NOTE | 2021-06-19 15:26 | HO.PM.IMPN ---
Subjective Subjective Date of Service: 06/19/21 Interval History: went to OR for IVCF placement today back on heparin gtt LLE swelling improved endorses full adherence with apixaban at prescribed doses leery of starting warfarin Review of Systems Review of Systems: Yes all other systems are reviewed and are negative Physical Exam Vital Signs: Vital Signs: Last Vital Signs Temp 97.9 F 06/19/21 10:33 Pulse 76 06/19/21 14:30 Resp 18 06/19/21 11:28 BP 164/86 H 06/19/21 14:30 Pulse Ox 99 06/19/21 11:28 BMI result Body Mass Index 25.7 Gen: in no acute distress HEENT: blind, sclera anicteric, moist mucus membranes Neck: supple Lungs: clear to auscultation bilaterally Heart: regular rate and rhythm, no murmurs Abd: soft, non-tender, non-distended Ext: LLE swollen Skin: warm/well-perfused Neuro: alert and oriented x3, no focal findings Psych: appropriate affect Objective Data Active Medications Acetaminophen (Acetaminophen 325 Mg Tablet) 650 mg PO Q6H PRN PRN Reason: Pain, Mild (Pain Scale 1-3) Last Admin: 06/19/21 09:55 Dose: 650 mg Documented by: SHERRI Amlodipine Besylate (Amlodipine Besylate 5 Mg Tablet) 5 mg PO DAILY [facility]; Protocol Last Admin: 06/19/21 10:02 Dose: 5 mg Documented by: SHERRI Ascorbic Acid (Ascorbic Acid 250 Mg Tablet) 250 mg PO DAILY [facility] Last Admin: 06/19/21 11:43 Dose: Not Given Documented by: LINDSAY Non-Admin Reason: Off Unit: Surgery Aspirin (Aspirin 325 Mg Tablet) 325 mg PO DAILY [facility] Last Admin: 06/19/21 11:44 Dose: Not Given Documented by: LINDSAY Non-Admin Reason: Off Unit: Surgery Atorvastatin Calcium (Atorvastatin Calcium 80 Mg Tablet) 80 mg PO BEDTIME [facility] Last Admin: 06/18/21 20:58 Dose: Not Given Documented by: MAHSA Non-Admin Reason: Patient Refused Atropine Sulfate (Atropine Sulfate 1 % Ophth Jacki 2 Ml Bottle) 1 drop EYE-LEFT TID [facility] Last Admin: 06/19/21 14:43 Dose: 1 drop Documented by: LINDSAY Calcitriol (Calcitriol 0.25 Mcg Capsule) 0.25 mcg PO DAILY [facility] Last Admin: 06/19/21 11:44 Dose: Not Given Documented by: LINDSAY Non-Velma Reason: Off Unit: Surgery Ferrous Sulfate (Ferrous Sulfate 324 Mg Tablet.Dr) 324 mg PO DAILY [facility] Last Admin: 06/19/21 11:44 Dose: Not Given Documented by: LINDSAY Non-Admin Reason: Off Unit: Surgery Fluticasone Propionate (Fluticasone Propionate Nasal 16 Gm [place]) 1 spray NOSTRIL-B DAILY [facility] Last Admin: 06/19/21 11:44 Dose: Not Given Documented by: LINDSAY Non-Admin Reason: Off Unit: Surgery Glyburide (Glyburide 5 Mg Tablet) 5 mg PO DAILY [facility] Last Admin: 06/19/21 11:44 Dose: Not Given Documented by: LINDSAY Non-Velma Reason: Off Unit: Surgery Heparin Sodium (Porcine) (Heparin Sodium,Porcine 5,000 Unit/Ml Vial) 3,000 unit 40 unit/kg (3000 unit) IVPUSH PROTOCOL BOLUS PRN; Protocol PRN Reason: 40 unit/kg - Heparin Protocol Last Admin: 06/19/21 14:34 Dose: 3,000 unit Documented by: LINDSAY Heparin Sodium (Porcine) (Heparin Sodium,Porcine 5,000 Unit/Ml Vial) 6,000 unit 80 unit/kg (6000 unit) IVPUSH PROTOCOL BOLUS PRN; Protocol PRN Reason: 80 unit/kg - Heparin Protocol Hydralazine HCl (Hydralazine Hcl 10 Mg Tablet) 10 mg PO TID [facility]; Protocol Last Admin: 06/19/21 14:34 Dose: 10 mg Documented by: LINDSAY Heparin Sodium/Sodium Chloride () 25,000 unit in 250 mls @ 0 mls/hr IVCONT .Q0M [facility]; Protocol Last Titration: 06/19/21 14:34 Dose: 12 units/kg/hr, 8.95 mls/hr Documented by: LINDSAY Cosigned by: SUSAN Morphine Sulfate (Morphine Sulfate 4 Mg/Ml Cartridge) 4 mg IVPUSH Q2H PRN; Protocol PRN Reason: Pain, Severe (Pain Scale 7-10) Last Admin: 06/19/21 09:59 Dose: 4 mg Documented by: SHERRI Oxycodone HCl (Oxycodone Hcl Immed Release 5 Mg Tablet) 5 mg PO Q4H PRN PRN Reason: Pain, Moderate (Pain Scale 4-6 Pharmacy Consult (Consult Rx Perform Med Rec) 1 each MISCELLANE ONCE PRN PRN Reason: Consult order Pharmacy Consult (Consult Rx Perform Med Rec) 1 each MISCELLANE ONCE PRN PRN Reason: Consult order Prednisolone Acetate (Prednisolone Acetate 1 % Oph Susp 5 Ml Drpbtl) 1 drop EYE-BOTH DAILY [facility] Last Admin: 06/19/21 11:44 Dose: Not Given Documented by: LINDSAY Non-Admin Reason: Off Unit: Surgery Sodium Bicarbonate (Sodium Bicarbonate 650 Mg Tablet) 650 mg PO BID [facility] Last Admin: 06/19/21 11:44 Dose: Not Given Documented by: LINDSAY Non-Velma Reason: Off Unit: Surgery Sodium Chloride (0.9 % Sodium Chloride Flush 3 Ml Syringe) 3 ml IVFLUSH QSHIFT [facility] Last Admin: 06/19/21 11:43 Dose: Not Given Documented by: LINDSAY Non-Velma Reason: Off Unit: Surgery Timolol Maleate (Timolol Maleate Xe 0.5 % Gel 5 Ml Drbtl) 1 drop EYE-RIGHT DAILY [facility] Last Admin: 06/19/21 11:45 Dose: Not Given Documented by: LINDSAY Non-Velma Reason: Off Unit: Surgery Vitamin D (Cholecalciferol (Vitamin D3) 25 Mcg Tablet) 50 mcg PO DAILY [facility] Last Admin: 06/19/21 11:44 Dose: Not Given Documented by: LINDSAY Non-Velma Reason: Off Unit: Surgery Labs CBC & Chem 7: 06/19/21 06:17 06/19/21 06:17 Labs: Laboratory Results - last 24 hr 06/18/21 06/19/21 06/19/21 18:50 06:17 06:17 MCV 89.2 MCH 29.2 MCHC 32.8 RDW 13.4 Plt Count 245 MPV 9.7 Immature Gran % (Auto) 0.4 Neut % (Auto) 71.4 Lymph % (Auto) 16.3 L [place] % (Auto) 6.7 Eos % (Auto) 4.5 H Baso % (Auto) 0.7 Lymph # (Auto) 1.1 L [place] # (Auto) 0.5 Eos # (Auto) 0.3 Baso # (Auto) 0.1 Abs Immat Gran (auto) 0.03 Absolute Neuts (auto) 4.9 Absolute Nucleated RBC 0.000 Nucleated RBC % (auto) 0.0 aPTT Heparin Protocol 63.2 Anion Gap 14 Estim Creat Clear Calc 14.5 Estimated GFR 13 Fasting Glucose 116 H Calcium 9.0 Total Bilirubin < 0.2 AST 11 ALT 10 Alkaline Phosphatase 63 Total Protein 6.3 L Albumin 3.2 L 06/19/21 06/19/21 06:17 14:05 MCV MCH MCHC RDW Plt Count MPV Immature Gran % (Auto) Neut % (Auto) Lymph % (Auto) [place] % (Auto) Eos % (Auto) Baso % (Auto) Lymph # (Auto) [place] # (Auto) Eos # (Auto) Baso # (Auto) Abs Immat Gran (auto) Absolute Neuts (auto) Absolute Nucleated RBC Nucleated RBC % (auto) aPTT Heparin Protocol 34.5 L D 44.8 L D Anion Gap Estim Creat Clear Calc Estimated GFR Fasting Glucose Calcium Total Bilirubin AST ALT Alkaline Phosphatase Total Protein Albumin Assessment and Plan (1) DVT (deep venous thrombosis): Status: Acute (2) Anemia: Status: Acute (3) CKD (chronic kidney disease) stage 4, GFR 15-29 ml/min: Status: Acute Plan hospital d#4 76yo F diagnosed with extensive LLE DVT at [facility] 06/01/21, presented here with LLE swelling after signing out AMA from [facility], found to be anemic # extensive LLE DVT - IVC filter placed today - back on heparin gtt - Heme/Onc consulted. unclear if true failure of apixaban but efficacy of DOACs not studied in this population [CKD4]. warfarin recommended but pt leery of monitoring requirements and she should like some time to consider it before we start; she will need bridging if she decides to proceed. would need 3-6 mo of AC since event provoked by fall/trauma + brief immobilization; IVC filter will need to be removed if she comes off AC # acute/chronic anemia - likely ACKD, transfused 2u pRBCs 06/16/21 with appopriate response in Hb # CKD4 - SCr at baseline - oral bicarbonate # HLD - statin # HTN - amlodipine, hydralazine # DM2 - switch glyburide to glipizide given renal failure. refuses correction-dose lispro -continue outpatient therapy In my clinical judgment, the patient requires continued hospitalization for the following reasons: IV heparin Quality Stroke Does the patient have a stroke diagnosis?: No VTE Prior VTE?: Yes VTE Risk Level:: Medical - moderate - high VTE Device Contraindication: Treatment Not Indicated VTE Drug Contraindication: N/A - Med Ordered
[2021-06-19] MEDS: Sodium Bicarbonate 650 MG TABLET PO (20:55)
[2021-06-19 21:05] LABS: PTT Heparin Drip 82.6 SEC (53-77.9)
--- NOTE | 2021-06-19 22:00 | P.PNNP_ITS ---
Subjective Subjective Date of Service: 06/20/21 Interval history: Chart Reviewed. Events noted. Physical Exam Vital Signs: Vital Signs: Last Vital Signs Temp 97.6 F 06/19/21 20:53 Pulse 81 06/19/21 20:53 Resp 20 06/19/21 20:53 BP 171/81 H 06/19/21 20:53 Pulse Ox 97 06/19/21 20:53 BMI result Body Mass Index 25.7 Const: General: no acute distress Orientation/consciousness: patient oriented x3 HEENT: Head: Yes normocephalic and Yes atraumatic Neck: Neck: Yes no JVD Resp: Auscultation: clear to auscultation bilaterally Cardio: Jugular venous distension: no JVD Rate: regular rate Rhythm: regular rhythm Heart sounds: S1 normal heart sound present and S2 normal heart sound present GI: Auscultation: normal bowel sounds Neuro: General: patient oriented x3 and no focal motor deficits Extrem: General: Yes no clubbing, cyanosis or edema Objective Data Labs CBC & Chem 7: 06/20/21 05:38 06/20/21 05:38 Labs: Laboratory Results - last 24 hr 06/19/21 06/19/21 06/19/21 06:17 06:17 06:17 WBC 6.9 RBC 3.32 L Hgb 9.7 L Hct 29.6 L MCV 89.2 MCH 29.2 MCHC 32.8 RDW 13.4 Plt Count 245 MPV 9.7 Immature Gran % (Auto) 0.4 Neut % (Auto) 71.4 Lymph % (Auto) 16.3 L [place] % (Auto) 6.7 Eos % (Auto) 4.5 H Baso % (Auto) 0.7 Lymph # (Auto) 1.1 L [place] # (Auto) 0.5 Eos # (Auto) 0.3 Baso # (Auto) 0.1 Abs Immat Gran (auto) 0.03 Absolute Neuts (auto) 4.9 Absolute Nucleated RBC 0.000 Nucleated RBC % (auto) 0.0 aPTT Heparin Protocol 34.5 L D Sodium 138 Potassium 4.6 Chloride 112 H Carbon Dioxide 17 L Anion Gap 14 BUN 64 H Creatinine 3.43 H Estim Creat Clear Calc 14.5 Estimated GFR 13 Fasting Glucose 116 H Calcium 9.0 Total Bilirubin < 0.2 AST 11 ALT 10 Alkaline Phosphatase 63 Total Protein 6.3 L Albumin 3.2 L 06/19/21 06/19/21 14:05 20:38 WBC RBC Hgb Hct MCV MCH MCHC RDW Plt Count MPV Immature Gran % (Auto) Neut % (Auto) Lymph % (Auto) [place] % (Auto) Eos % (Auto) Baso % (Auto) Lymph # (Auto) [place] # (Auto) Eos # (Auto) Baso # (Auto) Abs Immat Gran (auto) Absolute Neuts (auto) Absolute Nucleated RBC Nucleated RBC % (auto) aPTT Heparin Protocol 44.8 L D 82.6 H D Sodium Potassium Chloride Carbon Dioxide Anion Gap BUN Creatinine Estim Creat Clear Calc Estimated GFR Fasting Glucose Calcium Total Bilirubin AST ALT Alkaline Phosphatase Total Protein Albumin Procedures Date of Service Date of Service: 06/20/21 Assessment & Plan Assessment and plan (1) CKD (chronic kidney disease) stage 4, GFR 15-29 ml/min: Status: Acute (2) Metabolic acidosis: Status: Acute Plan Known severe CKD due to HTN/DM baseline Scr ~ 3 mg/dl non anion gap metabolic acidosis - Improving with current Na-HCO3 regimen. May need to increase to 650 mg tid. type IV RTA REC Cont. sodium bicarbonate but increase to tid dose medications for eGFR < 30 ml/min S-Cr ~ at BL follow kidney function and electrolytes iron panel added for am. No urgent indication for [employer] at this time but she will require close follow up at outpatient and [employer] planning. Time Spent With Patient Time: Total time spent is greater than 50% in coordination of care (as documented) at patient's floor/unit and/or counseling patient: Progress Note: Quality Stroke Does the patient have a stroke diagnosis?: No
--- NOTE | 2021-06-19 22:58 | PC.NURSE ---
P BP elevated 174/[address] Herrera made aware E will monitor ,pt has no complaints
[2021-06-20 04:20] LABS: PTT Heparin Drip 61.4 SEC (53-77.9)
--- NOTE | 2021-06-20 05:29 | PC.NURSE ---
PTT-HD RESULTS AT 0400 WERE 61.4, THEREFORE, PER PROTOCOL NO RATE CHANGES NEEDED. NEXT PTT-HD DUE FOR 1000
[2021-06-20 05:47] LABS: Hematocrit 28.7 % (37.0-47.0); Hemoglobin 9.5 g/dl (12.0-16.0); Mean Corpuscular HGB Conc 33.1 g/dl (31.0-35.0); Mean Corpuscular Hemoglobin 29.9 pg (27.0-33.0); Mean Corpuscular Volume 90.3 fL (80.0-98.0); Mean Platelet Volume 9.6 fL (9.4-12.3); Platelet Count 216 X10*3/uL (160-400); Red Blood Count 3.18 X10*6/uL (4.20-5.50); Red Cell Distribution Width 13.8 % (11.0-16.0); White Blood Count 7.7 X10*3/uL (4.8-10.8)
[2021-06-20 06:14] LABS: Anion Gap 13 (12-20); Blood Urea Nitrogen 61 mg/dL (9-16); Calcium 8.9 mg/dL (8.4-10.2); Carbon Dioxide 17 mmol/L (22-29); Chloride 113 mmol/L (96-108); Creatinine Clr Calc Pharmacy 14.6; Estimated Glomerular Filt Rate 13; Glucose Random 134 mg/dL (60-115); Potassium 4.5 mmol/L (3.3-5.1); Sodium 138 mmol/L (135-145)
[2021-06-20 08:00] VITALS: BP 176/69; PULSE 83; RESP 18; TEMP 36.8; O2SAT 99
[2021-06-20] MEDS: Cholecalciferol (Vitamin D3) 25 MCG TABLET 50 MCG PO ×2 (09:08→09:14)
[2021-06-20] MEDS: Aspirin 325 MG TABLET PO (09:09)
[2021-06-20] MEDS: hydrALAZINE HCl 10 MG TABLET PO ×2 (09:10→16:19)
[2021-06-20] MEDS: amLODIPine Besylate 5 MG TABLET PO (09:10)
[2021-06-20] MEDS: Ascorbic Acid 250 MG TABLET PO (09:13)
[2021-06-20] MEDS: Sodium Bicarbonate 650 MG TABLET PO (09:13)
[2021-06-20] MEDS: Ferrous Sulfate 324 MG TABLET.DR PO (09:14)
[2021-06-20] MEDS: 0.9 % Sodium Chloride Flush 3 ML SYRINGE IVFLUSH ×2 (09:17→20:41)
[2021-06-20] MEDS: calcitrioL 0.25 MCG CAPSULE PO (09:30)
[2021-06-20 10:00] VITALS: BP 180/69; PULSE 83; RESP 18; TEMP 37.5; O2SAT 98
[2021-06-20 10:02] LABS: Prothrombin Time 11.3 SEC (9.9-13.0)
[2021-06-20] MEDS: Atropine Sulfate 1 % Ophth Sol 2 ML BOTTLE 1 DROP EYE-LEFT ×3 (10:04→20:40)
[2021-06-20 10:05] LABS: PTT Heparin Drip 43.6 SEC (53-77.9)
[2021-06-20] MEDS: Fluticasone Propionate Nasal 16 GM SPRAY 1 SPRAY NOSTRIL-B (10:05)
[2021-06-20] MEDS: prednisoLONE Acetate 1 % Oph Susp 5 ML DRPBTL 1 DROP EYE-BOTH (10:05)
[2021-06-20] MEDS: timoloL maleate XE 0.5 % Gel 5 ML DRBTL 1 DROP EYE-RIGHT (10:06)
[2021-06-20] MEDS: Heparin Sodium,Porcine 5,000 UNIT/ML VIAL 3000 UNIT IVPUSH (10:45)
--- NOTE | 2021-06-20 11:12 | P.PNIM_ITS ---
Subjective Subjective Date of Service: 06/20/21 Interval History: Claims glyburide causes nausea in her. LLE swelling improved. No GI bleeding. Still leery of warfarin but other option is SQ Lovenox. Review of Systems Review of Systems: Yes all other systems are reviewed and are negative Physical Exam Vital Signs: Vital Signs: Last Vital Signs Temp 98.3 F 06/20/21 08:00 Pulse 83 06/20/21 08:00 Resp 18 06/20/21 08:00 BP 176/69 H 06/20/21 08:00 Pulse Ox 99 06/20/21 08:00 BMI result Body Mass Index 25.7 Gen: in no acute distress HEENT: blind, sclera anicteric, moist mucus membranes Neck: supple Lungs: clear to auscultation bilaterally Heart: regular rate and rhythm, no murmurs Abd: soft, non-tender, non-distended Ext: LLE swelling decreased Skin: warm/well-perfused Neuro: alert and oriented x3, no focal findings Psych: appropriate affect Objective Data Active Medications Acetaminophen (Acetaminophen 325 Mg Tablet) 650 mg PO Q6H PRN PRN Reason: Pain, Mild (Pain Scale 1-3) Last Admin: 06/19/21 09:55 Dose: 650 mg Documented by: SHERRI Amlodipine Besylate (Amlodipine Besylate 5 Mg Tablet) 5 mg PO DAILY [facility]; Protocol Last Admin: 06/20/21 09:10 Dose: 5 mg Documented by: SANJUANITA Ascorbic Acid (Ascorbic Acid 250 Mg Tablet) 250 mg PO DAILY [facility] Last Admin: 06/20/21 09:13 Dose: 250 mg Documented by: SANJUANITA Aspirin (Aspirin 325 Mg Tablet) 325 mg PO DAILY [facility] Last Admin: 06/20/21 09:09 Dose: 325 mg Documented by: SANJUANITA Atorvastatin Calcium (Atorvastatin Calcium 80 Mg Tablet) 80 mg PO BEDTIME [facility] Last Admin: 06/19/21 20:31 Dose: Not Given Documented by: MAHSA Non-Admin Reason: Patient Refused Atropine Sulfate (Atropine Sulfate 1 % Oph Jacki 2 Ml Bottle) 1 drop EYE-LEFT TID [facility] Last Admin: 06/20/21 10:04 Dose: 1 drop Documented by: SANJUANITA Calcitriol (Calcitriol 0.25 Mcg Capsule) 0.25 mcg PO DAILY [facility] Last Admin: 06/20/21 09:30 Dose: 0.25 mcg Documented by: SANJUANITA Ferrous Sulfate (Ferrous Sulfate 324 Mg Tablet.Dr) 324 mg PO DAILY [facility] Last Admin: 06/20/21 09:14 Dose: 324 mg Documented by: SANJUANITA Fluticasone Propionate (Fluticasone Propionate Nasal 16 Gm [place]) 1 spray NOSTRIL-B DAILY [facility] Last Admin: 06/20/21 10:05 Dose: 1 spray Documented by: SANJUANITA Glipizide (Glipizide 5 Mg Tablet) 5 mg PO DAILY [facility] Last Admin: 06/20/21 09:33 Dose: Not Given Documented by: SANJUANITA Non-Admin Reason: Patient Refused Heparin Sodium (Porcine) (Heparin Sodium,Porcine 5,000 Unit/Ml Vial) 3,000 unit 40 unit/kg (3000 unit) IVPUSH PROTOCOL BOLUS PRN; Protocol PRN Reason: 40 unit/kg - Heparin Protocol Last Admin: 06/20/21 10:45 Dose: 3,000 unit Documented by: SANJUANITA Heparin Sodium (Porcine) (Heparin Sodium,Porcine 5,000 Unit/Ml Vial) 6,000 unit 80 unit/kg (6000 unit) IVPUSH PROTOCOL BOLUS PRN; Protocol PRN Reason: 80 unit/kg - Heparin Protocol Hydralazine HCl (Hydralazine Hcl 10 Mg Tablet) 10 mg PO TID [facility]; Protocol Last Admin: 06/20/21 09:10 Dose: 10 mg Documented by: SANJUANITA Heparin Sodium/Sodium Chloride () 25,000 unit in 250 mls @ 0 mls/hr IVCONT .Q0M [facility]; Protocol Last Titration: 06/20/21 10:46 Dose: 12 units/kg/hr, 8.95 mls/hr Documented by: SANJUANITA Cosigned by: KATTY Morphine Sulfate (Morphine Sulfate 4 Mg/Ml Cartridge) 4 mg IVPUSH Q2H PRN; Protocol PRN Reason: Pain, Severe (Pain Scale 7-10) Last Admin: 06/19/21 09:59 Dose: 4 mg Documented by: ZNARLINE Oxycodone HCl (Oxycodone Hcl Immed Release 5 Mg Tablet) 5 mg PO Q4H PRN PRN Reason: Pain, Moderate (Pain Scale 4-6 Pharmacy Consult (Consult Rx Perform Med Rec) 1 each MISCELLANE ONCE PRN PRN Reason: Consult order Pharmacy Consult (Consult Rx Perform Med Rec) 1 each MISCELLANE ONCE PRN PRN Reason: Consult order Prednisolone Acetate (Prednisolone Acetate 1 % Oph Susp 5 Ml Drpbtl) 1 drop EYE-BOTH DAILY [facility] Last Admin: 06/20/21 10:05 Dose: 1 drop Documented by: SANJUANITA Sodium Bicarbonate (Sodium Bicarbonate 650 Mg Tablet) 650 mg PO BID [facility] Last Admin: 06/20/21 09:13 Dose: 650 mg Documented by: SANJUANITA Sodium Chloride (0.9 % Sodium Chloride Flush 3 Ml Syringe) 3 ml IVFLUSH QSHIFT [facility] Last Admin: 06/20/21 09:17 Dose: 3 ml Documented by: SANJUANITA Timolol Maleate (Timolol Maleate Xe 0.5 % Gel 5 Ml Drbtl) 1 drop EYE-RIGHT DAILY [facility] Last Admin: 06/20/21 10:06 Dose: 1 drop Documented by: SANJUANITA Vitamin D (Cholecalciferol (Vitamin D3) 25 Mcg Tablet) 50 mcg PO DAILY [facility] Last Admin: 06/20/21 09:14 Dose: 50 mcg Documented by: SANJUANITA Labs CBC & Chem 7: 06/20/21 05:38 06/20/21 05:38 Labs: Laboratory Results - last 24 hr 06/19/21 06/19/21 06/20/21 14:05 20:38 03:54 MCV MCH MCHC RDW Plt Count MPV Absolute Nucleated RBC Nucleated RBC % (auto) PT INR aPTT Heparin Protocol 44.8 L D 82.6 H D 61.4 D Anion Gap Estim Creat Clear Calc Estimated GFR Random Glucose Calcium 06/20/21 06/20/21 06/20/21 05:38 05:38 09:45 MCV 90.3 MCH 29.9 MCHC 33.1 RDW 13.8 Plt Count 216 MPV 9.6 Absolute Nucleated RBC 0.000 Nucleated RBC % (auto) 0.0 PT 11.3 INR 1.0 aPTT Heparin Protocol 43.6 L D Anion Gap 13 Estim Creat Clear Calc 14.6 Estimated GFR 13 Random Glucose 134 H Calcium 8.9 Assessment and Plan (1) DVT (deep venous thrombosis): Status: Acute (2) Anemia: Status: Acute (3) CKD (chronic kidney disease) stage 4, GFR 15-29 ml/min: Status: Acute [facility] hospital d#5 76yo F diagnosed with extensive LLE DVT at [facility] [place] 06/01/21, presented here with LLE swelling after signing out AMA from STR, found to be anemic # extensive LLE DVT - IVC filter placed 06/19/21 - back on heparin gtt - Heme/Onc consulted. unclear if true failure of apixaban but efficacy of DOACs not studied in this population [CKD4]. start warfarin, bridge with heparin gtt until INR 2+ x2d. needs 3-6 mo of AC since event provoked by fall/trauma + brief immobilization; IVC filter will need to be removed if she comes off AC. # acute/chronic anemia - likely ACKD, transfused 2u pRBCs 06/16/21 with appopriate response in Hb # CKD4 - SCr at baseline - oral bicarbonate - Nephrology following # HLD # PAD - high-intensity statin - d/c ASA as she will be started on warfarin # HTN - amlodipine, hydralazine # DM2 - glipizide # dispo - PT consult In my clinical judgment, the patient requires continued hospitalization for the following reasons: IV heparin Quality Stroke Does the patient have a stroke diagnosis?: No VTE Prior VTE?: Yes VTE Risk Level:: Medical - moderate - high VTE Device Contraindication: Treatment Not Indicated VTE Drug Contraindication: N/A - Med Ordered
--- NOTE | 2021-06-20 11:17 | MHC.CM.PN ---
Per ROUNDS discussion, Patient is not yet medically cleard for dc (IV Heparin); STR is the goal for dc and CM will follow for possible need to adjust the dc plan.
[2021-06-20 15:47] VITALS: BP 175/80; PULSE 86; RESP 18; TEMP 37.1; O2SAT 99
[2021-06-20 17:31] LABS: PTT Heparin Drip 94.1 SEC (53-77.9)
--- NOTE | 2021-06-20 18:39 | PC.NURSE ---
pt's PTT-HD at 1713 was 94.1, heparin drip was held from [id number], restarted at 1835 at 9 units/kg/hr. Next PTT-HD scheduled for today at 2315.
[2021-06-20] MEDS: Heparin Sodium,Porcine/1/2NS 25,000 UNIT/250 ML IV.SOLN 6.71 UNIT IVCONT (20:36)
[2021-06-20 20:58] VITALS: BP 165/71; PULSE 83; RESP 18; TEMP 36.9; O2SAT 97
[2021-06-21] VITALS (7 sets, daily range): BP systolic 160–177; BP diastolic 61–81; PULSE 81–85; RESP 18–20; TEMP 36.3–37.3; O2SAT 97–99
[2021-06-21 00:32] LABS: PTT Heparin Drip 47.3 SEC (53-77.9)
[2021-06-21] MEDS: Heparin Sodium,Porcine 5,000 UNIT/ML VIAL 3000 UNIT IVPUSH ×2 (00:59→17:58)
[2021-06-21 07:09] LABS: Prothrombin Time 11.2 SEC (9.9-13.0)
[2021-06-21 07:10] LABS: Glucose, Whole Blood 102 mg/dL (60-115)
[2021-06-21 07:12] LABS: PTT Heparin Drip 82.7 SEC (53-77.9)
[2021-06-21 07:19] LABS: Iron 85 mcg/dL (30-160); Percent Iron Saturation 37 % (15-50); Total Iron Binding Capacity 228 mcg/dL (228-428); Unsaturated Iron Binding 143 ug/dL
[2021-06-21] MEDS: hydrALAZINE HCl 10 MG TABLET PO (09:30)
[2021-06-21] MEDS: Cholecalciferol (Vitamin D3) 25 MCG TABLET 50 MCG PO (09:30)
[2021-06-21] MEDS: Ascorbic Acid 250 MG TABLET PO (09:31)
[2021-06-21] MEDS: Ferrous Sulfate 324 MG TABLET.DR PO (09:31)
[2021-06-21] MEDS: amLODIPine Besylate 5 MG TABLET PO ×2 (09:31→09:44)
[2021-06-21] MEDS: 0.9 % Sodium Chloride Flush 3 ML SYRINGE IVFLUSH ×2 (09:31→16:17)
[2021-06-21] MEDS: glyBURIDE 5 MG TABLET PO (09:31)
[2021-06-21] MEDS: calcitrioL 0.25 MCG CAPSULE PO (09:37)
[2021-06-21] MEDS: Sodium Bicarbonate 650 MG TABLET PO (09:39)
[2021-06-21] MEDS: prednisoLONE Acetate 1 % Oph Susp 5 ML DRPBTL 1 DROP EYE-BOTH (09:49)
[2021-06-21] MEDS: Atropine Sulfate 1 % Ophth Sol 2 ML BOTTLE 1 DROP EYE-LEFT ×2 (09:49→16:17)
[2021-06-21] MEDS: timoloL maleate XE 0.5 % Gel 5 ML DRBTL 1 DROP EYE-RIGHT (09:49)
[2021-06-21] MEDS: Fluticasone Propionate Nasal 16 GM SPRAY 1 SPRAY NOSTRIL-B (09:49)
[2021-06-21 11:40] LABS: Glucose, Whole Blood 197 mg/dL (60-115)
--- NOTE | 2021-06-21 13:08 | P.PNVS_ITS ---
Subjective Subjective Date of Service: 06/21/21 Patient reports: no new complaints and feels better Interval history: Patient seen and examined. No significant events status post IVC filter placement. She reports she is doing fairly well. She continues to be difficult with the staff and has been somewhat noncompliant with her medications. Now for vascular follow-up. Physical Exam Vital Signs: Vital Signs: Last Vital Signs Temp 98.4 F 06/21/21 11:46 Pulse 81 06/21/21 11:46 Resp 20 06/21/21 11:46 BP 177/81 H 06/21/21 11:46 Pulse Ox 97 06/21/21 11:46 BMI result Body Mass Index 25.7 Const: General: cooperative, healthy appearing and comfortable Orientation/consciousness: oriented to person, oriented to place and oriented to time HEENT: Head: Yes normal to inspection Neck: Neck: Yes normal visual inspection Carotids: no bruits Chest: Chest palpation & inspection: normal inspection of the chest Resp: Effort & Inspection: normal respiratory effort and able to speak in complete sentences Auscultation: clear to auscultation bilaterally, no crackles, no rales, no rhonchi and no wheezes Cardio: Rate: regular rate Rhythm: regular rhythm Heart sounds: S1 n ormal heart sound present and S2 normal heart sound present Bruits: no carotid bruits Peripheral pulses: Peripheral pulses 2+ throughout GI: Inspection: Yes normal to inspection Skin: Wounds: no wounds Hair: normal Neuro: General: oriented to person, oriented to place and oriented to time Cranial nerves: Yes CN's II-XII intact bilaterally and Yes Normal hearing present Cognition (Neuro): normal cognition Motor exam (neuro): 5/5 motor strength present throughout Extrem: Other: venous exam: No significant superficial varicosities or spider telangiectasias, minimal edema General: No clubbing, No cyanosis and No edema Psych: Appearance: grossly normal Mental Status: mental status grossly normal Speech and movement: Normal speech and movement present Progress Note: A&P Assessment and plan (1) DVT (deep venous thrombosis): Status: Acute Assessment and Plan: In short patient is status post IVC filter placement. The patient will require transition from heparin to Coumadin. I did discuss with her the importance of staying on Coumadin and being compliant with it. She will follow up with us on an as-needed basis. Thank you for allowing us to assist in her care. Time Spent With Patient Time: Total time spent is greater than 50% in coordination of care (as documented) at patient's floor/unit and/or counseling patient: Procedures Date of Service Date of Service: 06/21/21 Quality Stroke Does the patient have a stroke diagnosis?: No VTE Prior VTE?: Yes VTE Risk Level:: Medical - moderate - high VTE Device Contraindication: Treatment Not Indicated VTE Drug Contraindication: N/A - Med Ordered
--- NOTE | 2021-06-21 13:52 | P.PNIM_ITS ---
Subjective Subjective Date of Service: 06/21/21 Interval History: Refused warfarin yesterday but willing to reconsider today. LLE swelling improved Review of Systems Review of Systems: Yes all other systems are reviewed and are negative Physical Exam Vital Signs: Vital Signs: Last Vital Signs Temp 98.4 F 06/21/21 11:46 Pulse 81 06/21/21 11:46 Resp 20 06/21/21 11:46 BP 177/81 H 06/21/21 11:46 Pulse Ox 97 06/21/21 11:46 BMI result Body Mass Index 25.7 Gen: in no acute distress HEENT: blind, sclera anicteric, moist mucus membranes Neck: supple Lungs: clear to auscultation bilaterally Heart: regular rate and rhythm, no murmurs Abd: soft, non-tender, non-distended Ext: LLE swelling decreased Skin: warm/well-perfused Neuro: alert and oriented x3, no focal findings Psych: appropriate affect Objective Data Active Medications Acetaminophen (Acetaminophen 325 Mg Tablet) 650 mg PO Q6H PRN PRN Reason: Pain, Mild (Pain Scale 1-3) Last Admin: 06/19/21 09:55 Dose: 650 mg Documented by: SHERRI Amlodipine Besylate (Amlodipine Besylate 10 Mg Tablet) 10 mg PO DAILY [facility]; Protocol Ascorbic Acid (Ascorbic Acid 250 Mg Tablet) 250 mg PO DAILY [facility] Last Admin: 06/21/21 09:31 Dose: 250 mg Documented by: JULIET Atorvastatin Calcium (Atorvastatin Calcium 80 Mg Tablet) 80 mg PO BEDTIME [facility] Last Admin: 06/20/21 21:05 Dose: Not Given Documented by: NEENA Non-Admin Reason: Patient Refused Atropine Sulfate (Atropine Sulfate 1 % Oph Jacki 2 Ml Bottle) 1 drop EYE-LEFT TID [facility] Last Admin: 06/21/21 09:49 Dose: 1 drop Documented by: JULIET Calcitriol (Calcitriol 0.25 Mcg Capsule) 0.25 mcg PO DAILY [facility] Last Admin: 06/21/21 09:37 Dose: 0.25 mcg Documented by: JULIET Ferrous Sulfate (Ferrous Sulfate 324 Mg Tablet.) 324 mg PO DAILY [facility] Last Admin: 06/21/21 09:31 Dose: 324 mg Documented by: JULIET Fluticasone Propionate (Fluticasone Propionate Nasal 16 Gm [place]) 1 spray NOSTRIL-B DAILY [facility] Last Admin: 06/21/21 09:49 Dose: 1 spray Documented by: JULIET Glyburide (Glyburide 5 Mg Tablet) 5 mg PO DAILY [facility] Last Admin: 06/21/21 09:31 Dose: 5 mg Documented by: JULIET Hydralazine HCl (Hydralazine Hcl 10 Mg Tablet) 10 mg PO TID [facility]; Protocol Last Admin: 06/21/21 09:30 Dose: 10 mg Documented by: JULIET Morphine Sulfate (Morphine Sulfate 4 Mg/Ml Cartridge) 4 mg IVPUSH Q2H PRN; Protocol PRN Reason: Pain, Severe (Pain Scale 7-10) Last Admin: 06/19/21 09:59 Dose: 4 mg Documented by: SHERRI Oxycodone HCl (Oxycodone Hcl Immed Release 5 Mg Tablet) 5 mg PO Q4H PRN PRN Reason: Pain, Moderate (Pain Scale 4-6 Pharmacy Consult (Consult Rx Perform Med Rec) 1 each MISCELLANE ONCE PRN PRN Reason: Consult order Pharmacy Consult (Consult Rx Perform Med Rec) 1 each MISCELLANE ONCE PRN PRN Reason: Consult order Prednisolone Acetate (Prednisolone Acetate 1 % Oph Susp 5 Ml Drpbtl) 1 drop EYE-BOTH DAILY [facility] Last Admin: 06/21/21 09:49 Dose: 1 drop Documented by: JULIET Sodium Bicarbonate (Sodium Bicarbonate 650 Mg Tablet) 650 mg PO BID [facility] Last Admin: 06/21/21 09:39 Dose: 650 mg Documented by: JULIET Sodium Chloride (0.9 % Sodium Chloride Flush 3 Ml Syringe) 3 ml IVFLUSH QSHIFT [facility] Last Admin: 06/21/21 09:31 Dose: 3 ml Documented by: JULIET Timolol Maleate (Timolol Maleate Xe 0.5 % Gel 5 Ml Drbtl) 1 drop EYE-RIGHT DAILY [facility] Last Admin: 06/21/21 09:49 Dose: 1 drop Documented by: JULIET Vitamin D (Cholecalciferol (Vitamin D3) 25 Mcg Tablet) 50 mcg PO DAILY [facility] Last Admin: 06/21/21 09:30 Dose: 50 mcg Documented by: JULIET Warfarin Sodium (Warfarin Sodium 5 Mg Tablet) 5 mg PO DAILY@1800 [facility] Last Admin: 06/20/21 17:43 Dose: Not Given Documented by: SRIRAM Non-Admin Reason: Patient Refused Labs CBC & Chem 7: 06/20/21 05:38 06/20/21 05:38 Labs: Laboratory Results - last 24 hr 06/20/21 06/20/21 06/21/21 17:13 23:31 06:51 PT Cancelled INR Cancelled aPTT Heparin Protocol 94.1 H D 47.3 L D POC Glucose Iron TIBC % Saturation Unsat Iron Binding 06/21/21 06/21/21 06/21/21 06:51 06:51 07:01 PT 11.2 INR 1.0 aPTT Heparin Protocol 82.7 H D POC Glucose 102 Iron 85 TIBC 228 % Saturation 37 Unsat Iron Binding 143 06/21/21 11:31 PT INR aPTT Heparin Protocol POC Glucose 197 H Iron TIBC % Saturation Unsat Iron Binding Assessment and Plan (1) DVT (deep venous thrombosis): Status: Acute (2) Anemia: Status: Acute (3) CKD (chronic kidney disease) stage 4, GFR 15-29 ml/min: Status: Acute Plan hospital d#6 76yo F diagnosed with extensive LLE DVT at [facility] [place] 06/01/21, presented here with LLE swelling after signing out AMA from STR, found to be anemic # extensive LLE DVT - IVC filter placed 06/19/21 - placed on heparin gtt -> transition to renally dosed enoxaparin 1 mg/kg q24h - Heme/Onc consulted. unclear if true failure of apixaban but efficacy of DOACs not studied in this population [CKD4]. start warfarin, bridge with enoxaparin until INR 2+ x2d. needs 3-6 mo of AC since event provoked by fall/trauma + brief immobilization; IVC filter will need to be removed if she comes off AC. # acute/chronic anemia - likely ACKD, transfused 2u pRBCs 06/16/21 with appopriate response in Hb # CKD4 - SCr at baseline - oral bicarbonate - Nephrology following # HLD # PAD - high-intensity statin - d/c'ed ASA as she will be started on warfarin # HTN - increase amlodipine, continue hydralazine - pt requests triamterene but this is contraindicated with her degree of renal insufficiency # DM2 - glipizide # dispo - PT: STR recommended, seeking placement options In my clinical judgment, the patient requires continued hospitalization for the following reasons: IV heparin -> SQ heparin, STR placement Quality Stroke Does the patient have a stroke diagnosis?: No VTE Prior VTE?: Yes VTE Risk Level:: Medical - moderate - high VTE Device Contraindication: Treatment Not Indicated VTE Drug Contraindication: N/A - Med Ordered
[2021-06-21 16:18] LABS: PTT Heparin Drip 50.9 SEC (53-77.9)
[2021-06-21] MEDS: Heparin Sodium,Porcine/1/2NS 25,000 UNIT/250 ML IV.SOLN 10.44 UNIT IVCONT (17:58)
[2021-06-21] MEDS: Acetaminophen 325 MG TABLET 650 MG PO (18:53)
[2021-06-21 22:55] LABS: PTT Heparin Drip 95.9 SEC (53-77.9)
[2021-06-22] VITALS (8 sets, daily range): BP systolic 157–178; BP diastolic 65–79; PULSE 75–87; RESP 16–20; TEMP 36.2–37.4; O2SAT 96–99
[2021-06-22 00:25] LABS: PTT Heparin Drip 92.7 SEC (53-77.9)
[2021-06-22 06:46] LABS: Hematocrit 29.4 % (37.0-47.0); Hemoglobin 9.6 g/dl (12.0-16.0); Mean Corpuscular HGB Conc 32.7 g/dl (31.0-35.0); Mean Corpuscular Hemoglobin 29.4 pg (27.0-33.0); Mean Corpuscular Volume 90.2 fL (80.0-98.0); Mean Platelet Volume 9.9 fL (9.4-12.3); Platelet Count 213 X10*3/uL (160-400); Red Blood Count 3.26 X10*6/uL (4.20-5.50); Red Cell Distribution Width 13.8 % (11.0-16.0); White Blood Count 7.4 X10*3/uL (4.8-10.8)
[2021-06-22 06:51] LABS: INTERNATIONAL NORM RATIO 0.9 (0.9-1.1); Prothrombin Time 10.6 SEC (9.9-13.0)
[2021-06-22 06:54] LABS: PTT Heparin Drip 78.3 SEC (53-77.9)
[2021-06-22] MEDS: Ascorbic Acid 250 MG TABLET PO (08:18)
[2021-06-22] MEDS: glyBURIDE 5 MG TABLET PO (08:18)
[2021-06-22] MEDS: Ferrous Sulfate 324 MG TABLET.DR PO (08:18)
[2021-06-22] MEDS: calcitrioL 0.25 MCG CAPSULE PO (08:18)
[2021-06-22] MEDS: Cholecalciferol (Vitamin D3) 25 MCG TABLET 50 MCG PO (08:19)
[2021-06-22] MEDS: amLODIPine Besylate 10 MG TABLET PO (08:20)
[2021-06-22] MEDS: Atropine Sulfate 1 % Ophth Sol 2 ML BOTTLE 1 DROP EYE-LEFT ×3 (08:28→20:55)
[2021-06-22] MEDS: prednisoLONE Acetate 1 % Oph Susp 5 ML DRPBTL 1 DROP EYE-BOTH (08:28)
[2021-06-22] MEDS: timoloL maleate XE 0.5 % Gel 5 ML DRBTL 1 DROP EYE-RIGHT (08:28)
[2021-06-22] MEDS: Fluticasone Propionate Nasal 16 GM SPRAY 1 SPRAY NOSTRIL-B (08:29)
--- NOTE | 2021-06-22 09:55 | P.PNIM_ITS ---
Subjective Subjective Date of Service: 06/22/21 Interval History: Refused warfarin yesterday, willing to take today Refuses enoxaparin Review of Systems Review of Systems: Yes all other systems are reviewed and are negative Physical Exam Vital Signs: Vital Signs: Last Vital Signs Temp 98.5 F 06/22/21 07:10 Pulse 81 06/22/21 07:10 Resp 18 06/22/21 07:10 BP 167/73 H 06/22/21 07:10 Pulse Ox 99 06/22/21 07:10 BMI result Body Mass Index 25.7 Gen: in no acute distress HEENT: blind, sclera anicteric, moist mucus membranes Neck: supple Lungs: clear to auscultation bilaterally Heart: regular rate and rhythm, no murmurs Abd: soft, non-tender, non-distended Ext: LLE swelling decreased Skin: warm/well-perfused Neuro: alert and oriented x3, no focal findings Psych: appropriate affect Objective Data Active Medications Acetaminophen (Acetaminophen 325 Mg Tablet) 650 mg PO Q6H PRN PRN Reason: Pain, Mild (Pain Scale 1-3) Last Admin: 06/21/21 18:53 Dose: 650 mg Documented by: JULIET Amlodipine Besylate (Amlodipine Besylate 10 Mg Tablet) 10 mg PO DAILY [facility]; Protocol Last Admin: 06/22/21 08:20 Dose: 10 mg Documented by: NIRMALA Ascorbic Acid (Ascorbic Acid 250 Mg Tablet) 250 mg PO DAILY [facility] Last Admin: 06/22/21 08:18 Dose: 250 mg Documented by: NIRMALA Atorvastatin Calcium (Atorvastatin Calcium 80 Mg Tablet) 80 mg PO BEDTIME [facility] Last Admin: 06/21/21 20:08 Dose: Not Given Documented by: HEBER Non-Admin Reason: Patient Refused Atropine Sulfate (Atropine Sulfate 1 % Ophth Jacki 2 Ml Bottle) 1 drop EYE-LEFT TID [facility] Last Admin: 06/22/21 08:28 Dose: 1 drop Documented by: NIRMALA Calcitriol (Calcitriol 0.25 Mcg Capsule) 0.25 mcg PO DAILY [facility] Last Admin: 06/22/21 08:18 Dose: 0.25 mcg Documented by: NIRMALA Ferrous Sulfate (Ferrous Sulfate 324 Mg Tablet.) 324 mg PO DAILY [facility] Last Admin: 06/22/21 08:18 Dose: 324 mg Documented by: NIRMALA Fluticasone Propionate (Fluticasone Propionate Nasal 16 Gm [place]) 1 spray NOSTRIL-B DAILY [facility] Last Admin: 06/22/21 08:29 Dose: 1 spray Documented by: NIRMALA Glyburide (Glyburide 5 Mg Tablet) 5 mg PO DAILY [facility] Last Admin: 06/22/21 08:18 Dose: 5 mg Documented by: NIRMALA Heparin Sodium (Porcine) (Heparin Sodium,Porcine 5,000 Unit/Ml Vial) 3,000 unit 40 unit/kg (3000 unit) IVPUSH PROTOCOL BOLUS PRN; Protocol PRN Reason: 40 unit/kg - Heparin Protocol Last Admin: 06/21/21 17:58 Dose: 3,000 unit Documented by: JULIET Heparin Sodium (Porcine) (Heparin Sodium,Porcine 5,000 Unit/Ml Vial) 6,000 unit 80 unit/kg (6000 unit) IVPUSH PROTOCOL BOLUS PRN; Protocol PRN Reason: 80 unit/kg - Heparin Protocol Hydralazine HCl (Hydralazine Hcl 10 Mg Tablet) 10 mg PO TID [facility]; Protocol Last Admin: 06/22/21 08:20 Dose: Not Given Documented by: NIRMALA Non-Admin Reason: Patient Refused Heparin Sodium/Sodium Chloride () 25,000 unit in 250 mls @ 0 mls/hr IVCONT .Q0M [facility]; Protocol Last Titration: 06/22/21 07:25 Dose: 10 units/kg/hr, 7.46 mls/hr Documented by: NIRMALA Cosigned by: DAY Morphine Sulfate (Morphine Sulfate 4 Mg/Ml Cartridge) 4 mg IVPUSH Q2H PRN; Protocol PRN Reason: Pain, Severe (Pain Scale 7-10) Last Admin: 06/19/21 09:59 Dose: 4 mg Documented by: METZNARLINE Oxycodone HCl (Oxycodone Hcl Immed Release 5 Mg Tablet) 5 mg PO Q4H PRN PRN Reason: Pain, Moderate (Pain Scale 4-6 Pharmacy Consult (Consult Rx Perform Med Rec) 1 each MISCELLANE ONCE PRN PRN Reason: Consult order Pharmacy Consult (Consult Rx Perform Med Rec) 1 each MISCELLANE ONCE PRN PRN Reason: Consult order Prednisolone Acetate (Prednisolone Acetate 1 % Oph Susp 5 Ml Drpbtl) 1 drop EYE-BOTH DAILY [facility] Last Admin: 06/22/21 08:28 Dose: 1 drop Documented by: NIRMALA Sodium Bicarbonate (Sodium Bicarbonate 650 Mg Tablet) 650 mg PO BID [facility] Last Admin: 06/22/21 08:20 Dose: Not Given Documented by: NIRMALA Non-Admin Reason: Patient Refused Sodium Chloride (0.9 % Sodium Chloride Flush 3 Ml Syringe) 3 ml IVFLUSH QSHIFT [facility] Last Admin: 06/22/21 07:27 Dose: Not Given Documented by: NIRMALA Non-Admin Reason: IV Running Timolol Maleate (Timolol Maleate Xe 0.5 % Gel 5 Ml Drbtl) 1 drop EYE-RIGHT DAILY [facility] Last Admin: 06/22/21 08:28 Dose: 1 drop Documented by: NIRMALA Vitamin D (Cholecalciferol (Vitamin D3) 25 Mcg Tablet) 50 mcg PO DAILY [facility] Last Admin: 06/21/21 09:30 Dose: 50 mcg Documented by: JULIET Warfarin Sodium (Warfarin Sodium 5 Mg Tablet) 5 mg PO DAILY@1800 [facility] Last Admin: 06/21/21 18:06 Dose: Not Given Documented by: JULIET Non-Admin Reason: Patient Refused Labs CBC & Chem 7: 06/22/21 06:21 06/20/21 05:38 Labs: Laboratory Results - last 24 hr 06/21/21 06/21/21 06/21/21 11:31 15:55 22:22 MCV MCH MCHC RDW Plt Count MPV Absolute Nucleated RBC Nucleated RBC % (auto) PT INR aPTT Heparin Protocol 50.9 L D 95.9 H D POC Glucose 197 H 06/22/21 06/22/21 06/22/21 00:11 06:21 06:21 MCV 90.2 MCH 29.4 MCHC 32.7 RDW 13.8 Plt Count 213 MPV 9.9 Absolute Nucleated RBC 0.000 Nucleated RBC % (auto) 0.0 PT 10.6 INR 0.9 aPTT Heparin Protocol 92.7 H 78.3 H POC Glucose Assessment and Plan (1) DVT (deep venous thrombosis): Status: Acute (2) Anemia: Status: Acute (3) CKD (chronic kidney disease) stage 4, GFR 15-29 ml/min: Status: Acute Plan hospital d#7 76yo F diagnosed with extensive LLE DVT at [facility] [place], presented here with LLE swelling after signing out AMA from STR, found to be anemic # extensive LLE DVT - IVC filter placed 06/19/21 - placed on heparin gtt, refuses enoxaparin - Heme/Onc consulted. unclear if true failure of apixaban but efficacy of DOACs not studied in this population [CKD4]. start warfarin today, bridge with warfarin until INR 2+ x2d. needs 3-6 mo of AC since event provoked by fall/trauma + brief immobilization; IVC filter will need to be removed if she comes off AC. # acute/chronic anemia - likely ACKD, transfused 2u pRBCs 06/16/21 with appropriate response in Hb # CKD4 - SCr at baseline - oral bicarbonate - Nephrology following # HLD # PAD - high-intensity statin - d/c'ed ASA as she will be started on warfarin # HTN - increase amlodipine, continue hydralazine [refused, counseled on importance of taking] - pt requests triamterene but this is contraindicated with her degree of renal insufficiency # DM2 - glipizide # dispo - PT: STR recommended, seeking placement options In my clinical judgment, the patient requires continued hospitalization for the following reasons: heparin bridge, STR placement Quality Stroke Does the patient have a stroke diagnosis?: No VTE Prior VTE?: Yes VTE Risk Level:: Medical - moderate - high VTE Device Contraindication: Treatment Not Indicated VTE Drug Contraindication: N/A - Med Ordered
[2021-06-22 13:52] LABS: PTT Heparin Drip 58.5 SEC (53-77.9)
--- NOTE | 2021-06-22 14:36 | MHC.CM.PN ---
Addendum entered by Marycarmen Taylor 06/22/21 16:11: [facility] ot follow and reevaluated on friday, need [employer] ins auth and bed availability, remains in hosital for warfarin and heparing bridge for inr 2 plus x 2 days , needs 3-6 monts of anticioahgulation and has new ivc filter Original Note: NURSE CASE MNAGER NOTE ELECTRONIC MEDICAL RECORD REVIEWED ALONG WITH CASE DISUCSSED WITH STAFF NURSE AND HOSPITLSIT . PATIENT WILL NEED SHORT TERM REHAB CLINICAL UPDATES SENT TO [facility] AND [facility] DISCHARGE PLAN SHORT TERM REHAB FREFERRALS SENT DICTIONARY EDITOR TO [facility] TO [facility]
[2021-06-22] MEDS: Acetaminophen 325 MG TABLET 650 MG PO (17:08)
[2021-06-22] MEDS: Warfarin Sodium 5 MG TABLET PO (17:08)
[2021-06-22] MEDS: Heparin Sodium,Porcine/1/2NS 25,000 UNIT/250 ML IV.SOLN 7.46 UNIT IVCONT (17:08)
--- NOTE | 2021-06-22 17:19 | PM.PNNEP ---
Subjective Subjective Date of Service: 06/22/21 Interval history: Chart Reviewed. Events noted. Physical Exam Vital Signs: Vital Signs: Last Vital Signs Temp 98.7 F 06/22/21 15:12 Pulse 84 06/22/21 15:12 Resp 16 06/22/21 15:12 BP 164/72 H 06/22/21 15:12 Pulse Ox 96 06/22/21 15:12 BMI result Body Mass Index 25.7 Const: General: cooperative and no acute distress HEENT: Head: Yes normocephalic and Yes atraumatic Neck: Neck: Yes no JVD Resp: Auscultation: clear to auscultation bilaterally Cardio: Jugular venous distension: no JVD Rate: regular rate Rhythm: regular rhythm Heart sounds: S1 normal heart sound present and S2 normal heart sound present GI: Auscultation: normal bowel sounds Skin: Lesions: no lesions Neuro: General: no focal motor deficits Extrem: General: Yes no clubbing, cyanosis or edema Objective Data Labs CBC & Chem 7: 06/22/21 06:21 06/20/21 05:38 Labs: Laboratory Results - last 24 hr 06/21/21 06/22/21 06/22/21 22:22 00:11 06:21 WBC 7.4 RBC 3.26 L Hgb 9.6 L Hct 29.4 L MCV 90.2 MCH 29.4 MCHC 32.7 RDW 13.8 Plt Count 213 MPV 9.9 Absolute Nucleated RBC 0.000 Nucleated RBC % (auto) 0.0 PT INR aPTT Heparin Protocol 95.9 H D 92.7 H 06/22/21 06/22/21 06:21 13:31 WBC RBC Hgb Hct MCV MCH MCHC RDW Plt Count MPV Absolute Nucleated RBC Nucleated RBC % (auto) PT 10.6 INR 0.9 aPTT Heparin Protocol 78.3 H 58.5 D Procedures Date of Service Date of Service: 06/22/21 Assessment & Plan Assessment and plan (1) Metabolic acidosis: Status: Acute (2) HTN (hypertension): Status: Acute (3) CKD (chronic kidney disease) stage 4, GFR 15-29 ml/min: Status: Acute Assessment and Plan: Known severe CKD due to HTN/DM baseline Scr ~ 3 mg/dl non anion gap metabolic acidosis - Improving with current Na-HCO3 regimen. Please increase Na-HCO3 to 650 mg tid. type IV RTA REC Cont. sodium bicarbonate but increase to tid dose medications for eGFR < 30 ml/min S-Cr ~ at BL follow kidney function and electrolytes iron panel added. TSAT ok Adding one time dose CRESCENCIO No urgent indication for LADIES SUIT OPERATOR at this time but she will require close follow up at outpatient and LADIES SUIT OPERATOR planning. Time Spent With Patient Time: Total time spent is greater than 50% in coordination of care (as documented) at patient's floor/unit and/or counseling patient: Progress Note: Quality Stroke Does the patient have a stroke diagnosis?: No
[2021-06-23 02:22] LABS: PTT Heparin Drip 56.6 SEC (53-77.9)
[2021-06-23 03:53] VITALS: BP 160/69; PULSE 75; RESP 18; TEMP 36.4; O2SAT 97
[2021-06-23 07:55] VITALS: BP 130/68; PULSE 78; RESP 17; TEMP 37.3; O2SAT 98
[2021-06-23] MEDS: glyBURIDE 5 MG TABLET PO (08:33)
[2021-06-23] MEDS: Ferrous Sulfate 324 MG TABLET.DR PO (08:33)
[2021-06-23] MEDS: calcitrioL 0.25 MCG CAPSULE PO (08:33)
[2021-06-23] MEDS: Cholecalciferol (Vitamin D3) 25 MCG TABLET 50 MCG PO (08:33)
[2021-06-23] MEDS: Ascorbic Acid 250 MG TABLET PO (08:33)
[2021-06-23] MEDS: Sodium Bicarbonate 650 MG TABLET PO ×2 (08:33→21:33)
[2021-06-23] MEDS: Metoprolol Succinate ER 25 MG TAB.ER.24H PO (08:33)
[2021-06-23] MEDS: prednisoLONE Acetate 1 % Oph Susp 5 ML DRPBTL 1 DROP EYE-BOTH (08:34)
[2021-06-23] MEDS: Atropine Sulfate 1 % Ophth Sol 2 ML BOTTLE 1 DROP EYE-LEFT ×3 (08:34→21:32)
[2021-06-23] MEDS: Fluticasone Propionate Nasal 16 GM SPRAY 1 SPRAY NOSTRIL-B (08:34)
[2021-06-23] MEDS: amLODIPine Besylate 10 MG TABLET PO (08:34)
[2021-06-23] MEDS: timoloL maleate XE 0.5 % Gel 5 ML DRBTL 1 DROP EYE-RIGHT (08:34)
[2021-06-23] MEDS: Acetaminophen 325 MG TABLET 650 MG PO ×2 (09:51→21:33)
[2021-06-23 10:00] LABS: INTERNATIONAL NORM RATIO 0.9 (0.9-1.1); Prothrombin Time 10.7 SEC (9.9-13.0)
[2021-06-23 11:27] VITALS: BP 164/77; PULSE 78; RESP 17; TEMP 36.5; O2SAT 98
--- NOTE | 2021-06-23 11:55 | P.PNIM_ITS ---
Subjective Subjective Date of Service: 06/23/21 Interval History: LLE swelling improved Started warfarin yesterday Review of Systems Review of Systems: Yes all other systems are reviewed and are negative Physical Exam Vital Signs: Vital Signs: Last Vital Signs Temp 97.7 F 06/23/21 11:27 Pulse 78 06/23/21 11:27 Resp 17 06/23/21 11:27 BP 164/77 H 06/23/21 11:27 Pulse Ox 98 06/23/21 11:27 BMI result Body Mass Index 25.7 Gen: in no acute distress HEENT: blind, sclera anicteric, moist mucus membranes Neck: supple Lungs: clear to auscultation bilaterally Heart: regular rate and rhythm, no murmurs Abd: soft, non-tender, non-distended Ext: LLE swelling decreased Skin: warm/well-perfused Neuro: alert and oriented x3, no focal findings Psych: appropriate affect Objective Data Active Medications Acetaminophen (Acetaminophen 325 Mg Tablet) 650 mg PO Q6H PRN PRN Reason: Pain, Mild (Pain Scale 1-3) Last Admin: 06/23/21 09:51 Dose: 650 mg Documented by: LEWIS Amlodipine Besylate (Amlodipine Besylate 10 Mg Tablet) 10 mg PO DAILY [facility]; Protocol Last Admin: 06/23/21 08:34 Dose: 10 mg Documented by: LEWIS Ascorbic Acid (Ascorbic Acid 250 Mg Tablet) 250 mg PO DAILY [facility] Last Admin: 06/23/21 08:33 Dose: 250 mg Documented by: LEWIS Atorvastatin Calcium (Atorvastatin Calcium 80 Mg Tablet) 80 mg PO BEDTIME [facility] Last Admin: 06/22/21 21:02 Dose: Not Given Documented by: DARWIN Non-Admin Reason: Patient Refused Atropine Sulfate (Atropine Sulfate 1 % Ophth Jacki 2 Ml Bottle) 1 drop EYE-LEFT TID [facility] Last Admin: 06/23/21 08:34 Dose: 1 drop Documented by: LEWIS Calcitriol (Calcitriol 0.25 Mcg Capsule) 0.25 mcg PO DAILY [facility] Last Admin: 06/23/21 08:33 Dose: 0.25 mcg Documented by: LEWIS Ferrous Sulfate (Ferrous Sulfate 324 Mg Tablet.) 324 mg PO DAILY [facility] Last Admin: 06/23/21 08:33 Dose: 324 mg Documented by: LEWIS Fluticasone Propionate (Fluticasone Propionate Nasal 16 Gm [place]) 1 spray NOSTRIL-B DAILY [facility] Last Admin: 06/23/21 08:34 Dose: 1 spray Documented by: LEWIS Glyburide (Glyburide 5 Mg Tablet) 5 mg PO DAILY [facility] Last Admin: 06/23/21 08:33 Dose: 5 mg Documented by: LEWIS Heparin Sodium (Porcine) (Heparin Sodium,Porcine 5,000 Unit/Ml Vial) 3,000 unit 40 unit/kg (3000 unit) IVPUSH PROTOCOL BOLUS PRN; Protocol PRN Reason: 40 unit/kg - Heparin Protocol Last Admin: 06/21/21 17:58 Dose: 3,000 unit Documented by: JULIET Heparin Sodium (Porcine) (Heparin Sodium,Porcine 5,000 Unit/Ml Vial) 6,000 unit 80 unit/kg (6000 unit) IVPUSH PROTOCOL BOLUS PRN; Protocol PRN Reason: 80 unit/kg - Heparin Protocol Heparin Sodium/Sodium Chloride () 25,000 unit in 250 mls @ 0 mls/hr IVCONT .Q0M [facility]; Protocol Last Titration: 06/23/21 02:27 Dose: 10 units/kg/hr, 7.46 mls/hr Documented by: DARWIN Cosigned by: RY Metoprolol Succinate (Metoprolol Succinate Er 25 Mg Tab.Er.24h) 25 mg PO DAILY [facility]; Protocol Last Admin: 06/23/21 08:33 Dose: 25 mg Documented by: LEWIS Morphine Sulfate (Morphine Sulfate 4 Mg/Ml Cartridge) 4 mg IVPUSH Q2H PRN; Protocol PRN Reason: Pain, Severe (Pain Scale 7-10) Last Admin: 06/19/21 09:59 Dose: 4 mg Documented by: METZNAT Oxycodone HCl (Oxycodone Hcl Immed Release 5 Mg Tablet) 5 mg PO Q4H PRN PRN Reason: Pain, Moderate (Pain Scale 4-6 Pharmacy Consult (Consult Rx Perform Med Rec) 1 each MISCELLANE ONCE PRN PRN Reason: Consult order Pharmacy Consult (Consult Rx Perform Med Rec) 1 each MISCELLANE ONCE PRN PRN Reason: Consult order Prednisolone Acetate (Prednisolone Acetate 1 % Oph Susp 5 Ml Drpbtl) 1 drop EYE-BOTH DAILY [facility] Last Admin: 06/23/21 08:34 Dose: 1 drop Documented by: LEWIS Sodium Bicarbonate (Sodium Bicarbonate 650 Mg Tablet) 650 mg PO BID [facility] Last Admin: 06/23/21 08:33 Dose: 650 mg Documented by: LEWIS Sodium Chloride (0.9 % Sodium Chloride Flush 3 Ml Syringe) 3 ml IVFLUSH QSHIFT [facility] Last Admin: 06/23/21 08:34 Dose: Not Given Documented by: LEWIS Non-Admin Reason: IV Running Timolol Maleate (Timolol Maleate Xe 0.5 % Gel 5 Ml Drbtl) 1 drop EYE-RIGHT DAILY [facility] Last Admin: 06/23/21 08:34 Dose: 1 drop Documented by: LEWIS Vitamin D (Cholecalciferol (Vitamin D3) 25 Mcg Tablet) 50 mcg PO DAILY [facility] Last Admin: 06/23/21 08:33 Dose: 50 mcg Documented by: LEWIS Warfarin Sodium (Warfarin Sodium 5 Mg Tablet) 5 mg PO DAILY@1800 [facility] Last Admin: 06/22/21 17:08 Dose: 5 mg Documented by: NIRMALA Labs CBC & Chem 7: 06/22/21 06:21 06/20/21 05:38 Labs: Laboratory Results - last 24 hr 06/22/21 06/22/21 06/23/21 13:31 19:53 02:04 PT 10.7 INR 0.9 aPTT Heparin Protocol 58.5 D 53.0 56.6 Assessment and Plan (1) DVT (deep venous thrombosis): Status: Acute (2) Anemia: Status: Acute (3) CKD (chronic kidney disease) stage 4, GFR 15-29 ml/min: Status: Acute Plan hospital d#8 76yo F diagnosed with extensive LLE DVT at [facility] 06/01/21, presented here with LLE swelling after signing out AMA from STR, found to be anemic # extensive LLE DVT - IVC filter placed 06/19/21 - placed on heparin gtt, refuses enoxaparin - Heme/Onc consulted. unclear if true failure of apixaban but efficacy of DOACs not studied in this population [CKD4]. started warfarin 06/23, bridge with warfarin until INR 2+ x2d. needs 3-6 mo of AC since event provoked by fall/trauma + brief immobilization; IVC filter will need to be removed if she comes off AC. daily INR while bridging. # acute/chronic anemia - likely ACKD, transfused 2u pRBCs 06/16/21 with appropriate response in Hb # CKD4 - SCr at baseline - oral bicarbonate - Nephrology following # HLD # PAD - high-intensity statin - d/c'ed ASA as she will be started on warfarin # HTN - increased amlodipine, d/c hydralazine [refused], start metoprolol succinate # DM2 - glipizide # dispo - PT: STR recommended, seeking placement options In my clinical judgment, the patient requires continued hospitalization for the following reasons: heparin bridge, STR placement Quality Stroke Does the patient have a stroke diagnosis?: No VTE Prior VTE?: Yes VTE Risk Level:: Medical - moderate - high VTE Device Contraindication: Treatment Not Indicated VTE Drug Contraindication: N/A - Med Ordered
[2021-06-23 15:30] VITALS: BP 152/61; PULSE 80; RESP 18; TEMP 37.2; O2SAT 97
[2021-06-23] MEDS: Warfarin Sodium 5 MG TABLET PO (17:11)
[2021-06-23] MEDS: 0.9 % Sodium Chloride Flush 3 ML SYRINGE IVFLUSH ×2 (17:12→21:33)
[2021-06-23] MEDS: Heparin Sodium,Porcine/1/2NS 25,000 UNIT/250 ML IV.SOLN 7.46 UNIT IVCONT (17:12)
[2021-06-23 20:00] VITALS: BP 165/71; PULSE 77; RESP 18; TEMP 36.6; O2SAT 97
--- NOTE | 2021-06-23 21:54 | PC.NURSE ---
Patient has heparin gtt running at 10 units/kg/hr. MAR says gtt is discontinued. Dr. Herrera notified and ordered to continue gtt until INR is 2. Last INR was 0.9 at 0204 06/23/21. Next PTTHD due 0600 06/24/21. Will continue to monitor.
--- NOTE | 2021-06-23 22:38 | PM.PNNEP ---
Subjective Subjective Date of Service: 06/23/21 Interval history: Chart Reviewed. Events noted. Physical Exam Vital Signs: Vital Signs: Last Vital Signs Temp 97.9 F 06/23/21 20:00 Pulse 77 06/23/21 20:00 Resp 18 06/23/21 20:00 BP 165/71 H 06/23/21 20:00 Pulse Ox 97 06/23/21 20:00 BMI result Body Mass Index 25.7 Const: General: cooperative and no acute distress Orientation/consciousness: patient oriented x3 HEENT: Head: Yes normocephalic and Yes atraumatic Neck: Neck: Yes no JVD Resp: Auscultation: clear to auscultation bilaterally Cardio: Jugular venous distension: no JVD Rate: regular rate Rhythm: regular rhythm Heart sounds: S1 normal heart sound present and S2 normal heart sound present GI: Auscultation: normal bowel sounds Neuro: General: patient oriented x3 Extrem: General: Yes no clubbing, cyanosis or edema Objective Data Labs CBC & Chem 7: 06/22/21 06:21 06/20/21 05:38 Labs: Laboratory Results - last 24 hr 06/23/21 02:04 PT 10.7 INR 0.9 aPTT Heparin Protocol 56.6 Procedures Date of Service Date of Service: 06/23/21 Assessment & Plan Assessment and plan (1) Metabolic acidosis: Status: Acute (2) CKD (chronic kidney disease) stage 4, GFR 15-29 ml/min: Status: Acute Plan Known severe CKD due to HTN/DM baseline Scr ~ 3 mg/dl non anion gap metabolic acidosis - Improving with current Na-HCO3 regimen. Please increase Na-HCO3 to? 650 mg tid. type IV RTA REC Repeat renal panel Cont. sodium bicarbonate dose medications for eGFR < 30 ml/min S-Cr ~ at BL follow kidney function and electrolytes iron panel added. TSAT ok Added one time dose CRESCENCIO No urgent indication for PUG MILL OPERATOR at this time but she will require close follow up at outpatient and PUG MILL OPERATOR planning. Time Spent With Patient Time: Total time spent is greater than 50% in coordination of care (as documented) at patient's floor/unit and/or counseling patient: Progress Note: Quality Stroke Does the patient have a stroke diagnosis?: No
[2021-06-23 23:25] VITALS: BP 165/60; PULSE 70; RESP 18; TEMP 36.6; O2SAT 97
[2021-06-24 03:41] VITALS: BP 165/72; PULSE 77; RESP 18; TEMP 36.5; O2SAT 97
[2021-06-24 06:59] LABS: Prothrombin Time 11.2 SEC (9.9-13.0)
[2021-06-24 07:01] LABS: PTT Heparin Drip 48.4 SEC (53-77.9)
[2021-06-24 07:57] VITALS: BP 149/67; PULSE 77; RESP 17; TEMP 37; O2SAT 98
[2021-06-24] MEDS: Fluticasone Propionate Nasal 16 GM SPRAY 1 SPRAY NOSTRIL-B (08:13)
[2021-06-24] MEDS: timoloL maleate XE 0.5 % Gel 5 ML DRBTL 1 DROP EYE-RIGHT (08:13)
[2021-06-24] MEDS: Atropine Sulfate 1 % Ophth Sol 2 ML BOTTLE 1 DROP EYE-LEFT ×3 (08:13→21:41)
[2021-06-24] MEDS: prednisoLONE Acetate 1 % Oph Susp 5 ML DRPBTL 1 DROP EYE-BOTH (08:13)
[2021-06-24] MEDS: calcitrioL 0.25 MCG CAPSULE PO (08:18)
[2021-06-24] MEDS: glyBURIDE 5 MG TABLET PO (08:19)
[2021-06-24] MEDS: amLODIPine Besylate 10 MG TABLET PO (08:19)
[2021-06-24] MEDS: Sodium Bicarbonate 650 MG TABLET PO ×2 (08:19→21:41)
[2021-06-24] MEDS: Ferrous Sulfate 324 MG TABLET.DR PO (08:19)
[2021-06-24] MEDS: Ascorbic Acid 250 MG TABLET PO (08:19)
[2021-06-24] MEDS: Cholecalciferol (Vitamin D3) 25 MCG TABLET 50 MCG PO (08:19)
[2021-06-24] MEDS: Metoprolol Succinate ER 25 MG TAB.ER.24H PO (08:19)
[2021-06-24] MEDS: Heparin Sodium,Porcine 5,000 UNIT/ML VIAL 3000 UNIT IVPUSH (08:25)
--- NOTE | 2021-06-24 11:22 | P.PNIM_ITS ---
Subjective Subjective Date of Service: 06/24/21 Interval History: Leg swelling improved Taking warfarin Refuses enoxaparin Review of Systems Review of Systems: Yes all other systems are reviewed and are negative Physical Exam Vital Signs: Vital Signs: Last Vital Signs Temp 98.6 F 06/24/21 07:57 Pulse 77 06/24/21 07:57 Resp 17 06/24/21 07:57 BP 149/67 H 06/24/21 07:57 Pulse Ox 98 06/24/21 07:57 BMI result Body Mass Index 25.7 Gen: in no acute distress HEENT: blind, sclera anicteric, moist mucus membranes Neck: supple Lungs: clear to auscultation bilaterally Heart: regular rate and rhythm, no murmurs Abd: soft, non-tender, non-distended Ext: LLE swelling decreased Skin: warm/well-perfused Neuro: alert and oriented x3, no focal findings Psych: appropriate affect Objective Data Active Medications Acetaminophen (Acetaminophen 325 Mg Tablet) 650 mg PO Q6H PRN PRN Reason: Pain, Mild (Pain Scale 1-3) Last Admin: 06/23/21 21:33 Dose: 650 mg Documented by: DENICE Amlodipine Besylate (Amlodipine Besylate 10 Mg Tablet) 10 mg PO DAILY [facility]; Pr otocol Last Admin: 06/24/21 08:19 Dose: 10 mg Documented by: LEWIS Ascorbic Acid (Ascorbic Acid 250 Mg Tablet) 250 mg PO DAILY [facility] Last Admin: 06/24/21 08:19 Dose: 250 mg Documented by: LWEIS Atorvastatin Calcium (Atorvastatin Calcium 80 Mg Tablet) 80 mg PO BEDTIME [facility] Last Admin: 06/23/21 21:36 Dose: Not Given Documented by: DENICE Non-Admin Reason: Patient Refused Atropine Sulfate (Atropine Sulfate 1 % Ophth Jacki 2 Ml Bottle) 1 drop EYE-LEFT TID [facility] Last Admin: 06/24/21 08:13 Dose: 1 drop Documented by: LEWIS Calcitriol (Calcitriol 0.25 Mcg Capsule) 0.25 mcg PO DAILY [facility] Last Admin: 06/24/21 08:18 Dose: 0.25 mcg Documented by: LEWIS Ferrous Sulfate (Ferrous Sulfate 324 Mg Tablet.) 324 mg PO DAILY [facility] Last Admin: 06/24/21 08:19 Dose: 324 mg Documented by: LEWIS Fluticasone Propionate (Fluticasone Propionate Nasal 16 Gm [place]) 1 spray NOSTRIL-B DAILY [facility] Last Admin: 06/24/21 08:13 Dose: 1 spray Documented by: LEWIS Glyburide (Glyburide 5 Mg Tablet) 5 mg PO DAILY [facility] Last Admin: 06/24/21 08:19 Dose: 5 mg Documented by: LEWIS Heparin Sodium (Porcine) (Heparin Sodium,Porcine 5,000 Unit/Ml Vial) 3,000 unit 40 unit/kg (3000 unit) IVPUSH PROTOCOL BOLUS PRN; Protocol PRN Reason: 40 unit/kg - Heparin Protocol Last Admin: 06/24/21 08:25 Dose: 3,000 unit Documented by: LEWIS Heparin Sodium (Porcine) (Heparin Sodium,Porcine 5,000 Unit/Ml Vial) 6,000 unit 80 unit/kg (6000 unit) IVPUSH PROTOCOL BOLUS PRN; Protocol PRN Reason: 80 unit/kg - Heparin Protocol Heparin Sodium/Sodium Chloride () 25,000 unit in 250 mls @ 0 mls/hr IVCONT .Q0M [facility]; Protocol Last Titration: 06/24/21 08:23 Dose: 12 units/kg/hr, 8.95 mls/hr Documented by: LEWIS Cosigned by: DONNA Metoprolol Succinate (Metoprolol Succinate Er 25 Mg Tab.Er.24h) 25 mg PO DAILY [facility]; Protocol Last Admin: 06/24/21 08:19 Dose: 25 mg Documented by: LEWIS Morphine Sulfate (Morphine Sulfate 4 Mg/Ml Cartridge) 4 mg IVPUSH Q2H PRN; Protocol PRN Reason: Pain, Severe (Pain Scale 7-10) Last Admin: 06/19/21 09:59 Dose: 4 mg Documented by: METDEVIN Oxycodone HCl (Oxycodone Hcl Immed Release 5 Mg Tablet) 5 mg PO Q4H PRN PRN Reason: Pain, Moderate (Pain Scale 4-6 Pharmacy Consult (Consult Rx Perform Med Rec) 1 each MISCELLANE ONCE PRN PRN Reason: Consult order Pharmacy Consult (Consult Rx Perform Med Rec) 1 each MISCELLANE ONCE PRN PRN Reason: Consult order Prednisolone Acetate (Prednisolone Acetate 1 % Oph Susp 5 Ml Drpbtl) 1 drop EYE-BOTH DAILY [facility] Last Admin: 06/24/21 08:13 Dose: 1 drop Documented by: LEWIS Sodium Bicarbonate (Sodium Bicarbonate 650 Mg Tablet) 650 mg PO BID [facility] Last Admin: 06/24/21 08:19 Dose: 650 mg Documented by: LEWIS Sodium Chloride (0.9 % Sodium Chloride Flush 3 Ml Syringe) 3 ml IVFLUSH QSHIFT [facility] Last Admin: 06/24/21 08:18 Dose: Not Given Documented by: LEWIS Non-Admin Reason: IV Running Timolol Maleate (Timolol Maleate Xe 0.5 % Gel 5 Ml Drbtl) 1 drop EYE-RIGHT DAILY [facility] Last Admin: 06/24/21 08:13 Dose: 1 drop Documented by: LEWIS Vitamin D (Cholecalciferol (Vitamin D3) 25 Mcg Tablet) 50 mcg PO DAILY [facility] Last Admin: 06/24/21 08:19 Dose: 50 mcg Documented by: LEWIS Warfarin Sodium (Warfarin Sodium 5 Mg Tablet) 5 mg PO DAILY@1800 [facility] Last Admin: 06/23/21 17:11 Dose: 5 mg Documented by: LEWIS Labs CBC & Chem 7: 06/22/21 06:21 06/20/21 05:38 Labs: Laboratory Results - last 24 hr 06/24/21 06:09 PT 11.2 INR 1.0 aPTT Heparin Protocol 48.4 L Assessment and Plan (1) DVT (deep venous thrombosis): Status: Acute (2) Anemia: Status: Acute (3) CKD (chronic kidney disease) stage 4, GFR 15-29 ml/min: Status: Acute Plan hospital d#9 76yo F diagnosed with extensive LLE DVT at [facility] [place] 06/01/21, presented here with LLE swelling after signing out AMA from [facility], found to be anemic # extensive LLE DVT - IVC filter placed 06/19/21 - placed on heparin gtt, refuses enoxaparin - Heme/Onc consulted. unclear if true failure of apixaban but efficacy of DOACs not studied in this population [CKD4]. started warfarin 06/23, bridge with warfarin until INR 2+ x2d. needs 3-6 mo of AC since event provoked by fall/trauma + brief immobilization; IVC filter will need to be removed if she comes off AC. daily INR while bridging. # acute/chronic anemia - likely ACKD, transfused 2u pRBCs 06/16/21 with appropriate response in Hb # CKD4 - SCr at baseline - oral bicarbonate - Nephrology following # HLD # PAD - high-intensity statin - d/c'ed ASA as she will be started on warfarin # HTN - increased amlodipine, d/c hydralazine [refused], start metoprolol succinate # DM2 - glipizide # dispo - PT: STR recommended, seeking placement options In my clinical judgment, the patient requires continued hospitalization for the following reasons: heparin bridge, STR placement Quality Stroke Does the patient have a stroke diagnosis?: No VTE Prior VTE?: Yes VTE Risk Level:: Medical - moderate - high VTE Device Contraindication: Treatment Not Indicated VTE Drug Contraindication: N/A - Med Ordered
[2021-06-24 11:33] VITALS: BP 150/69; PULSE 84; RESP 17; TEMP 36.3; O2SAT 98
[2021-06-24 15:28] LABS: PTT Heparin Drip 83.8 SEC (53-77.9)
[2021-06-24 15:49] VITALS: BP 164/58; PULSE 78; RESP 18; TEMP 36.8; O2SAT 98
--- NOTE | 2021-06-24 16:33 | PM.PNNEP ---
Subjective Subjective Date of Service: 06/24/21 Interval history: Chart Reviewed. Events noted. Physical Exam Vital Signs: Vital Signs: Last Vital Signs Temp 98.4 F 06/24/21 20:00 Pulse 77 06/24/21 20:00 Resp 18 06/24/21 20:00 BP 168/74 H 06/24/21 20:00 Pulse Ox 97 06/24/21 20:00 BMI result Body Mass Index 25.7 Const: General: cooperative, comfortable and no acute distress Orientation/consciousness: patient oriented x3 HEENT: Head: Yes normocephalic and Yes atraumatic Neck: Neck: Yes no JVD Resp: Auscultation: clear to auscultation bilaterally Cardio: Jugular venous distension: no JVD Rate: regular rate Rhythm: regular rhythm GI: Auscultation: normal bowel sounds Neuro: General: patient oriented x3 Extrem: General: Yes no pedal edema and Yes no calf tenderness Objective Data Labs CBC & Chem 7: 06/22/21 06:21 06/20/21 05:38 Labs: Laboratory Results - last 24 hr 06/24/21 06/24/21 06:09 15:01 PT 11.2 INR 1.0 aPTT Heparin Protocol 48.4 L 83.8 H D Procedures Date of Service Date of Service: 06/24/21 Assessment & Plan Assessment and plan (1) CKD (chronic kidney disease) stage 4, GFR 15-29 ml/min: Status: Acute Assessment and Plan: Known severe CKD due to HTN/DM baseline Scr ~ 3 mg/dl non anion gap metabolic acidosis - Improving with current Na-HCO3 regimen. Increase Na-HCO3 to? 650 mg tid. type IV RTA REC Repeat renal panel dose medications for eGFR < 30 ml/min follow kidney function and electrolytes iron panel added. TSAT ok Added one time dose CRESCENCIO No urgent indication for EXIT BOOTH AGENT at this time but she will require close follow up at outpatient and EXIT BOOTH AGENT planning. (2) Anemia: Status: Acute (3) Metabolic acidosis: Status: Acute Time Spent With Patient Time: Total time spent is greater than 50% in coordination of care (as documented) at patient's floor/unit and/or counseling patient: Progress Note: Quality Stroke Does the patient have a stroke diagnosis?: No
[2021-06-24] MEDS: Heparin Sodium,Porcine/1/2NS 25,000 UNIT/250 ML IV.SOLN 7.46 UNIT IVCONT (16:57)
[2021-06-24] MEDS: Warfarin Sodium 5 MG TABLET PO (16:58)
[2021-06-24 20:00] VITALS: BP 168/74; PULSE 77; RESP 18; TEMP 36.9; O2SAT 97
[2021-06-24] MEDS: 0.9 % Sodium Chloride Flush 3 ML SYRINGE IVFLUSH (21:41)
[2021-06-24 23:50] VITALS: BP 153/70; PULSE 77; RESP 18; TEMP 36.6; O2SAT 99
[2021-06-25 00:44] LABS: PTT Heparin Drip 60.5 SEC (53-77.9)
[2021-06-25 03:24] VITALS: BP 160/72; PULSE 78; RESP 18; TEMP 36.7; O2SAT 97
[2021-06-25 05:59] LABS: INTERNATIONAL NORM RATIO 1.1 (0.9-1.1); Prothrombin Time 12.8 SEC (9.9-13.0)
[2021-06-25 06:02] LABS: PTT Heparin Drip 58.9 SEC (53-77.9)
[2021-06-25 07:21] VITALS: BP 160/70; PULSE 73; RESP 18; TEMP 37.1; O2SAT 98
[2021-06-25] MEDS: Acetaminophen 325 MG TABLET 650 MG PO (10:26)
[2021-06-25] MEDS: 0.9 % Sodium Chloride Flush 3 ML SYRINGE IVFLUSH ×2 (10:26→18:06)
[2021-06-25] MEDS: calcitrioL 0.25 MCG CAPSULE PO (10:26)
[2021-06-25] MEDS: amLODIPine Besylate 10 MG TABLET PO (10:27)
[2021-06-25] MEDS: Metoprolol Succinate ER 50 MG TAB.ER.24H PO (10:27)
[2021-06-25] MEDS: Sodium Bicarbonate 650 MG TABLET PO (10:27)
[2021-06-25] MEDS: Cholecalciferol (Vitamin D3) 25 MCG TABLET 50 MCG PO (10:27)
[2021-06-25] MEDS: Ascorbic Acid 250 MG TABLET PO (10:28)
[2021-06-25] MEDS: Ferrous Sulfate 324 MG TABLET.DR PO (10:28)
[2021-06-25] MEDS: glyBURIDE 5 MG TABLET PO (10:28)
[2021-06-25] MEDS: Atropine Sulfate 1 % Ophth Sol 2 ML BOTTLE 1 DROP EYE-LEFT ×2 (10:32→18:36)
[2021-06-25] MEDS: prednisoLONE Acetate 1 % Oph Susp 5 ML DRPBTL 1 DROP EYE-BOTH (10:32)
[2021-06-25] MEDS: Fluticasone Propionate Nasal 16 GM SPRAY 1 SPRAY NOSTRIL-B (10:32)
[2021-06-25] MEDS: timoloL maleate XE 0.5 % Gel 5 ML DRBTL 1 DROP EYE-RIGHT (10:32)
[2021-06-25 12:00] VITALS: BP 168/82; PULSE 74; RESP 18; TEMP 36.8; O2SAT 98
--- NOTE | 2021-06-25 12:12 | PM.PNNEP ---
Subjective Subjective Date of Service: 06/25/21 Interval history: Events noted. All recent data reviewed Physical Exam Vital Signs: Vital Signs: Last Vital Signs Temp 98.7 F 06/25/21 07:21 Pulse 73 06/25/21 07:21 Resp 18 06/25/21 07:21 BP 160/70 H 06/25/21 07:21 Pulse Ox 98 06/25/21 07:21 BMI result Body Mass Index 25.7 Const: General: no acute distress Eyes: EOM: EOMs intact bilaterally Neck: Neck: Yes supple Resp: Auscultation: diminished lung sounds Cardio: Rate: regular rate GI: Palpation (GI): Soft to palpation Neuro: General: moves all extremities Objective Data Labs CBC & Chem 7: 06/22/21 06:21 06/20/21 05:38 Labs: Laboratory Results - last 24 hr 06/24/21 06/24/21 06/25/21 15:01 23:06 05:16 PT 12.8 INR 1.1 aPTT Heparin Protocol 83.8 H D 60.5 D 06/25/21 05:16 PT INR aPTT Heparin Protocol 58.9 Procedures Date of Service Date of Service: 06/25/21 Assessment & Plan Assessment and plan (1) Acute kidney injury superimposed on CKD: Status: Acute Assessment and Plan: Known severe CKD due to HTN/DM Baseline Scr ~ 3 mg/dl Renal function close to baseline Has metabolic acidosis - On NaHCO3 Continue rest of current supportive care for now Time Spent With Patient Time: Total time spent is greater than 50% in coordination of care (as documented) at patient's floor/unit and/or counseling patient: Progress Note: Quality Stroke Does the patient have a stroke diagnosis?: No
--- NOTE | 2021-06-25 13:24 | HO.PM.IMPN ---
Subjective Subjective Date of Service: 06/25/21 Interval History: Tolerating warfarin, INR still only 1.1 LLE swelling improved Review of Systems Review of Systems: Yes all other systems are reviewed and are negative Physical Exam Vital Signs: Vital Signs: Last Vital Signs Temp 98.7 F 06/25/21 07:21 Pulse 73 06/25/21 07:21 Resp 18 06/25/21 07:21 BP 160/70 H 06/25/21 07:21 Pulse Ox 98 06/25/21 07:21 BMI result Body Mass Index 25.7 Gen: in no acute distress HEENT: blind, sclera anicteric, moist mucus membranes Neck: supple Lungs: clear to auscultation bilaterally Heart: regular rate and rhythm, no murmurs Abd: soft, non-tender, non-distended Ext: LLE swelling decreased Skin: warm/well-perfused Neuro: alert and oriented x3, no focal findings Psych: appropriate affect Objective Data Active Medications Acetaminophen (Acetaminophen 325 Mg Tablet) 650 mg PO Q6H PRN PRN Reason: Pain, Mild (Pain Scale 1-3) Last Admin: 06/25/21 10:26 Dose: 650 mg Documented by: MAURIZIO Amlodipine Besylate (Amlodipine Besylate 10 Mg Tablet) 10 mg PO DAILY [facility]; Protocol Last Admin: 06/25/21 10:27 Dose: 10 mg Documented by: MAURIZIO Ascorbic Acid (Ascorbic Acid 250 Mg Tablet) 250 mg PO DAILY [facility] Last Admin: 06/25/21 10:28 Dose: 250 mg Documented by: MAURIZIO Atorvastatin Calcium (Atorvastatin Calcium 80 Mg Tablet) 80 mg PO BEDTIME [facility] Last Admin: 06/24/21 21:50 Dose: Not Given Documented by: NEENA Non-Admin Reason: Patient Refused Atropine Sulfate (Atropine Sulfate 1 % Ophth Jacki 2 Ml Bottle) 1 drop EYE-LEFT TID [facility] Last Admin: 06/25/21 10:32 Dose: 1 drop Documented by: MAURIZIO Calcitriol (Calcitriol 0.25 Mcg Capsule) 0.25 mcg PO DAILY [facility] Last Admin: 06/25/21 10:26 Dose: 0.25 mcg Documented by: MAURIZIO Ferrous Sulfate (Ferrous Sulfate 324 Mg Tablet.Dr) 324 mg PO DAILY [facility] Last Admin: 06/25/21 10:28 Dose: 324 mg Documented by: MAURIZIO Fluticasone Propionate (Fluticasone Propionate Nasal 16 Gm [place]) 1 spray NOSTRIL-B DAILY [facility] Last Admin: 06/25/21 10:32 Dose: 1 spray Documented by: MAURIZIO Glyburide (Glyburide 5 Mg Tablet) 5 mg PO DAILY [facility] Last Admin: 06/25/21 10:28 Dose: 5 mg Documented by: MAURIZIO Heparin Sodium (Porcine) (Heparin Sodium,Porcine 5,000 Unit/Ml Vial) 3,000 unit 40 unit/kg (3000 unit) IVPUSH PROTOCOL BOLUS PRN; Protocol PRN Reason: 40 unit/kg - Heparin Protocol Last Admin: 06/24/21 08:25 Dose: 3,000 unit Documented by: LEWIS Heparin Sodium (Porcine) (Heparin Sodium,Porcine 5,000 Unit/Ml Vial) 6,000 unit 80 unit/kg (6000 unit) IVPUSH PROTOCOL BOLUS PRN; Protocol PRN Reason: 80 unit/kg - Heparin Protocol Heparin Sodium/Sodium Chloride () 25,000 unit in 250 mls @ 0 mls/hr IVCONT .Q0M [facility]; Protocol Last Admin: 06/24/21 16:57 Dose: 10 units/kg/hr, 7.46 mls/hr Documented by: LEWIS Cosigned by: SUSAN Metoprolol Succinate (Metoprolol Succinate Er 50 Mg Tab.Er.24h) 50 mg PO DAILY [facility]; Protocol Last Admin: 06/25/21 10:27 Dose: 50 mg Documented by: MAURIZIO Morphine Sulfate (Morphine Sulfate 4 Mg/Ml Cartridge) 4 mg IVPUSH Q2H PRN; Protocol PRN Reason: Pain, Severe (Pain Scale 7-10) Last Admin: 06/19/21 09:59 Dose: 4 mg Documented by: METZNAT Oxycodone HCl (Oxycodone Hcl Immed Release 5 Mg Tablet) 5 mg PO Q4H PRN PRN Reason: Pain, Moderate (Pain Scale 4-6 Pharmacy Consult (Consult Rx Perform Med Rec) 1 each MISCELLANE ONCE PRN PRN Reason: Consult order Pharmacy Consult (Consult Rx Perform Med Rec) 1 each MISCELLANE ONCE PRN PRN Reason: Consult order Prednisolone Acetate (Prednisolone Acetate 1 % Oph Susp 5 Ml Drpbtl) 1 drop EYE-BOTH DAILY [facility] Last Admin: 06/25/21 10:32 Dose: 1 drop Documented by: MAURIZIO Sodium Bicarbonate (Sodium Bicarbonate 650 Mg Tablet) 650 mg PO BID [facility] Last Admin: 06/25/21 10:27 Dose: 650 mg Documented by: MAURIZIO Sodium Chloride (0.9 % Sodium Chloride Flush 3 Ml Syringe) 3 ml IVFLUSH QSHIFT [facility] Last Admin: 06/25/21 10:26 Dose: 3 ml Documented by: MAURIZIO Timolol Maleate (Timolol Maleate Xe 0.5 % Gel 5 Ml Drbtl) 1 drop EYE-RIGHT DAILY [facility] Last Admin: 06/25/21 10:32 Dose: 1 drop Documented by: MAURIZIO Vitamin D (Cholecalciferol (Vitamin D3) 25 Mcg Tablet) 50 mcg PO DAILY [facility] Last Admin: 06/25/21 10:27 Dose: 50 mcg Documented by: MAURIZIO Warfarin Sodium (Warfarin Sodium 7.5 Mg Tablet) 7.5 mg PO DAILY@1800 [facility] Labs CBC & Chem 7: 06/22/21 06:21 06/20/21 05:38 Labs: Laboratory Results - last 24 hr 06/24/21 06/24/21 06/25/21 15:01 23:06 05:16 PT 12.8 INR 1.1 aPTT Heparin Protocol 83.8 H D 60.5 D 06/25/21 05:16 PT INR aPTT Heparin Protocol 58.9 Assessment and Plan (1) DVT (deep venous thrombosis): Status: Acute (2) Anemia: Status: Acute (3) CKD (chronic kidney disease) stage 4, GFR 15-29 ml/min: Status: Acute Plan hospital d#10 76yo F diagnosed with extensive LLE DVT at [facility] [place] 06/01/21, presented here with LLE swelling after signing out AMA from [facility], found to be anemic # extensive LLE DVT - IVC filter placed 06/19/21 - placed on heparin gtt, refuses enoxaparin - Heme/Onc consulted. unclear if true failure of apixaban but efficacy of DOACs not studied in this population [CKD4]. started warfarin 06/23, bridge with warfarin until INR 2+ x2d; increase from 5 to 7.5 mg daily; needs 3-6 mo of AC since event provoked by fall/trauma + brief immobilization; IVC filter will need to be removed if she comes off AC. daily INR while bridging. # acute/chronic anemia - likely ACKD, transfused 2u pRBCs 06/16/21 with appropriate response in Hb # CKD4 - SCr at baseline - oral bicarbonate - Nephrology following # HLD # PAD - high-intensity statin - d/c'ed ASA as she will be started on warfarin # HTN - increased amlodipine, d/c hydralazine [refused], increase metoprolol succinate # DM2 - glipizide # dispo - PT: STR recommended, seeking placement options In my clinical judgment, the patient requires continued hospitalization for the following reasons: heparin bridge, STR placement Quality Stroke Does the patient have a stroke diagnosis?: No VTE Prior VTE?: Yes VTE Risk Level:: Medical - moderate - high VTE Device Contraindication: Treatment Not Indicated VTE Drug Contraindication: N/A - Med Ordered
--- NOTE | 2021-06-25 13:30 | MHC.CLN ---
F/U SUPPLEMENT CHANGED TO ENSURE CLEAR TID PER PATIENT REQUEST/PREFERENCE. PROVIDES 720 KCAL, 24 G PROTEIN.
--- NOTE | 2021-06-25 14:21 | MHC.CM.PN ---
NURSE GROCERY STOCK CLERK NOTE ELECTONIC MEDICAL RECORD REVIEWED ALONG WITH CASE DISCUSSED WITH STAFF NURSE AND HOSPITALIST . , ON LABS- INR 1.1 ON 06/25 - 06/22 started warfarin today with bridge heparin unit inr 2 plus x 2 days, needs 3-6 months of anticoagulation has new ivc filter ,STR calvin [facility]ike skilled following patient for Str [facility] FOLLOWING [employer] AUTHORIZATION, & BED AVAIABILITY, PCP/DR. GAO.
[2021-06-25 16:00] VITALS: BP 150/70; PULSE 75; RESP 18; TEMP 36.8; O2SAT 97
[2021-06-25] MEDS: Heparin Sodium,Porcine/1/2NS 25,000 UNIT/250 ML IV.SOLN 7.46 UNIT IVCONT (18:01)
[2021-06-25] MEDS: Warfarin Sodium 7.5 MG TABLET PO (18:05)
[2021-06-25 19:21] VITALS: BP 166/72; PULSE 84; RESP 18; TEMP 37.4; O2SAT 95
[2021-06-25 23:39] VITALS: BP 166/64; PULSE 85; RESP 18; TEMP 36.5; O2SAT 98
[2021-06-26 04:00] VITALS: BP 160/65; PULSE 63; RESP 18; TEMP 36.7; O2SAT 98
[2021-06-26] MEDS: Acetaminophen 325 MG TABLET 650 MG PO (04:28)
[2021-06-26 07:37] LABS: INTERNATIONAL NORM RATIO 1.4 (0.9-1.1); Prothrombin Time 15.8 SEC (9.9-13.0)
[2021-06-26 07:40] LABS: PTT Heparin Drip 65.2 SEC (53-77.9)
[2021-06-26 08:00] VITALS: BP 168/74; PULSE 75; RESP 18; TEMP 36.8; O2SAT 96
[2021-06-26] MEDS: Sodium Bicarbonate 650 MG TABLET PO (10:19)
[2021-06-26] MEDS: amLODIPine Besylate 10 MG TABLET PO (10:20)
[2021-06-26] MEDS: calcitrioL 0.25 MCG CAPSULE PO (10:21)
[2021-06-26] MEDS: Cholecalciferol (Vitamin D3) 25 MCG TABLET 50 MCG PO (10:21)
[2021-06-26] MEDS: 0.9 % Sodium Chloride Flush 3 ML SYRINGE IVFLUSH (10:21)
[2021-06-26] MEDS: glyBURIDE 5 MG TABLET PO (10:21)
[2021-06-26] MEDS: Metoprolol Succinate ER 50 MG TAB.ER.24H PO (10:21)
[2021-06-26] MEDS: Ascorbic Acid 250 MG TABLET PO (10:21)
[2021-06-26] MEDS: Ferrous Sulfate 324 MG TABLET.DR PO (10:22)
[2021-06-26] MEDS: prednisoLONE Acetate 1 % Oph Susp 5 ML DRPBTL 1 DROP EYE-BOTH (10:46)
[2021-06-26] MEDS: Atropine Sulfate 1 % Ophth Sol 2 ML BOTTLE 1 DROP EYE-LEFT ×3 (10:47→20:16)
[2021-06-26] MEDS: timoloL maleate XE 0.5 % Gel 5 ML DRBTL 1 DROP EYE-RIGHT (10:47)
[2021-06-26] MEDS: Fluticasone Propionate Nasal 16 GM SPRAY 1 SPRAY NOSTRIL-B (10:50)
[2021-06-26 12:00] VITALS: BP 176/72; PULSE 72; RESP 18; TEMP 36.8; O2SAT 95
--- NOTE | 2021-06-26 14:36 | HO.PM.IMPN ---
Subjective Subjective Date of Service: 06/26/21 Interval History: No acute issues overnight. Still noncompliant with most therapies Review of Systems Denies chest pain Denies shortness of breath Denies nausea vomiting diarrhea Denies fever chills Physical Exam Vital Signs: Vital Signs: Last Vital Signs Temp 98.2 F 06/26/21 12:00 Pulse 72 06/26/21 12:00 Resp 18 06/26/21 12:00 BP 176/72 H 06/26/21 12:00 Pulse Ox 95 06/26/21 12:00 BMI result Body Mass Index 25.7 Const: Other: Awake alert no acute distress Resp: Other: Clear to auscultation bilaterally no rales rhonchi or wheezes Cardio: Other: No S4; positive S1-S2; no S3 murmurs rubs or gallops GI: Other: Soft nondistended normoactive bowel sounds x4 quadrants Extrem: Other: Left lower extremity greater than right lower extremity 3:1 Objective Data Active Medications Acetaminophen (Acetaminophen 325 Mg Tablet) 650 mg PO Q6H PRN PRN Reason: Pain, Mild (Pain Scale 1-3) Last Admin: 06/26/21 04:28 Dose: 650 mg Documented by: HEBER Amlodipine Besylate (Amlodipine Besylate 10 Mg Tablet) 10 mg PO DAILY [facility]; Protocol Last Admin: 06/26/21 10:20 Dose: 10 mg Documented by: BRITNEY Ascorbic Acid (Ascorbic Acid 250 Mg Tablet) 250 mg PO DAILY [facility] Last Admin: 06/26/21 10:21 Dose: 250 mg Documented by: BRITNEY Atorvastatin Calcium (Atorvastatin Calcium 80 Mg Tablet) 80 mg PO BEDTIME [facility] Last Admin: 06/25/21 19:49 Dose: Not Given Documented by: HEBER Non-Admin Reason: Patient Refused Atropine Sulfate (Atropine Sulfate 1 % Ophth Jacki 2 Ml Bottle) 1 drop EYE-LEFT TID [facility] Last Admin: 06/26/21 10:47 Dose: 1 drop Documented by: BRITNEY Calcitriol (Calcitriol 0.25 Mcg Capsule) 0.25 mcg PO DAILY [facility] Last Admin: 06/26/21 10:21 Dose: 0.25 mcg Documented by: BRITNEY Ferrous Sulfate (Ferrous Sulfate 324 Mg Tablet.) 324 mg PO DAILY [facility] Last Admin: 06/26/21 10:22 Dose: 324 mg Documented by: BRITNEY Fluticasone Propionate (Fluticasone Propionate Nasal 16 Gm [place]) 1 spray NOSTRIL-B DAILY [facility] Last Admin: 06/26/21 10:50 Dose: 1 spray Documented by: BRITNEY Glyburide (Glyburide 5 Mg Tablet) 5 mg PO DAILY [facility] Last Admin: 06/26/21 10:21 Dose: 5 mg Documented by: BRITNEY Heparin Sodium (Porcine) (Heparin Sodium,Porcine 5,000 Unit/Ml Vial) 3,000 unit 40 unit/kg (3000 unit) IVPUSH PROTOCOL BOLUS PRN; Protocol PRN Reason: 40 unit/kg - Heparin Protocol Last Admin: 06/24/21 08:25 Dose: 3,000 unit Documented by: LEWIS Heparin Sodium (Porcine) (Heparin Sodium,Porcine 5,000 Unit/Ml Vial) 6,000 unit 80 unit/kg (6000 unit) IVPUSH PROTOCOL BOLUS PRN; Protocol PRN Reason: 80 unit/kg - Heparin Protocol Heparin Sodium/Sodium Chloride () 25,000 unit in 250 mls @ 0 mls/hr IVCONT .Q0M [facility]; Protocol Last Titration: 06/26/21 07:49 Dose: 10 units/kg/hr, 7.46 mls/hr Documented by: BRITNEY Cosigned by: SUSAN Metoprolol Succinate (Metoprolol Succinate Er 50 Mg Tab.Er.24h) 50 mg PO DAILY [facility]; Protocol Last Admin: 06/26/21 10:21 Dose: 50 mg Documented by: BRITNEY Morphine Sulfate (Morphine Sulfate 4 Mg/Ml Cartridge) 4 mg IVPUSH Q2H PRN; Protocol PRN Reason: Pain, Severe (Pain Scale 7-10) Last Admin: 06/19/21 09:59 Dose: 4 mg Documented by: METZNAT Oxycodone HCl (Oxycodone Hcl Immed Release 5 Mg Tablet) 5 mg PO Q4H PRN PRN Reason: Pain, Moderate (Pain Scale 4-6 Pharmacy Consult (Consult Rx Perform Med Rec) 1 each MISCELLANE ONCE PRN PRN Reason: Consult order Pharmacy Consult (Consult Rx Perform Med Rec) 1 each MISCELLANE ONCE PRN PRN Reason: Consult order Prednisolone Acetate (Prednisolone Acetate 1 % Oph Susp 5 Ml Drpbtl) 1 drop EYE-BOTH DAILY [facility] Last Admin: 06/26/21 10:46 Dose: 1 drop Documented by: BRITNEY Sodium Bicarbonate (Sodium Bicarbonate 650 Mg Tablet) 650 mg PO BID [facility] Last Admin: 06/26/21 10:19 Dose: 650 mg Documented by: BRITNEY Sodium Chloride (0.9 % Sodium Chloride Flush 3 Ml Syringe) 3 ml IVFLUSH QSHIFT [facility] Last Admin: 06/26/21 10:21 Dose: 3 ml Documented by: BRITNEY Timolol Maleate (Timolol Maleate Xe 0.5 % Gel 5 Ml Drbtl) 1 drop EYE-RIGHT DAILY [facility] Last Admin: 06/26/21 10:47 Dose: 1 drop Documented by: BRITNEY Vitamin D (Cholecalciferol (Vitamin D3) 25 Mcg Tablet) 50 mcg PO DAILY [facility] Last Admin: 06/26/21 10:21 Dose: 50 mcg Documented by: BRITNEY Warfarin Sodium (Warfarin Sodium 7.5 Mg Tablet) 7.5 mg PO DAILY@1800 [facility] Last Admin: 06/25/21 18:05 Dose: 7.5 mg Documented by: FAVIO Labs CBC & Chem 7: 06/22/21 06:21 06/20/21 05:38 Labs: Laboratory Results - last 24 hr 06/26/21 07:24 PT 15.8 H INR 1.4 H aPTT Heparin Protocol 65.2 Assessment and Plan (1) DVT (deep venous thrombosis): Status: Acute (2) CKD (chronic kidney disease) stage 4, GFR 15-29 ml/min: Status: Acute (3) Anemia: Status: Acute (4) Type 2 diabetes mellitus: Status: Acute Plan 76yo F diagnosed with extensive LLE DVT at [facility] [place] 06/01/21, presented here with LLE swelling after signing out AMA from [facility], found to be anemic 1.Extensive left lower extremity DVT - IVC filter placed 06/19/21 - placed on heparin gtt, refuses enoxaparin - continue heparin until INR> 2 on 2 consecutive draw days 2.Acute/chronic anemia - likely ACKD, transfused 2u pRBCs 06/16/21 with appropriate response in Hb 3. CKD 4 - SCr at baseline - oral bicarbonate - follow renals/divalents 4. HTN - fair control -difficult to manage(compliance) 5. DM2 -acceptable control given limited treatment options - glipizide # dispo - PT: STR recommended, seeking placement options Patient requires continued hospitalization for the following reasons: heparin bridge, STR placement Quality Stroke Does the patient have a stroke diagnosis?: No VTE Prior VTE?: Yes VTE Risk Level:: Medical - moderate - high VTE Device Contraindication: Treatment Not Indicated VTE Drug Contraindication: N/A - Med Ordered
--- NOTE | 2021-06-26 14:38 | MHC.CM.PN ---
Addendum entered by Marycarmen Taylor 06/26/21 14:50: initated severL OTHER REFERRAL FACILITIS FOR STR TO BE ABLE TO OFFER PATIENT MORE CHOICES Original Note: nurse nurse case management note electronic medical record record reviewed along with case disucssed with staff jovana and will met with npatient today she was comoplianing of pain and asking if she had been accepted by [facility] , i reported that thye are actively following and we are sending them clinicals but it depends on when she is discharged the date if they have bed availability i asked for alternative chocies and she would not give them to me ,, clinical updates sent to [facility] with possible ? of d/ 2-3 days . physical therapy continues to follow dischagre plan str transportation action timothy
[2021-06-26 15:35] VITALS: BP 169/74; PULSE 76; RESP 18; TEMP 37.2; O2SAT 96
[2021-06-26] MEDS: Warfarin Sodium 7.5 MG TABLET PO (17:50)
[2021-06-26] MEDS: Heparin Sodium,Porcine/1/2NS 25,000 UNIT/250 ML IV.SOLN 7.46 UNIT IVCONT (17:52)
[2021-06-26 20:00] VITALS: BP 161/75; PULSE 77; RESP 18; TEMP 36.8; O2SAT 97
[2021-06-26 23:31] VITALS: BP 165/65; PULSE 82; RESP 18; TEMP 36.7; O2SAT 97
[2021-06-27 04:00] VITALS: BP 170/76; PULSE 77; RESP 18; TEMP 36.4; O2SAT 98
[2021-06-27 06:54] LABS: INTERNATIONAL NORM RATIO 1.8 (0.9-1.1); Prothrombin Time 21.1 SEC (9.9-13.0)
[2021-06-27 06:57] LABS: PTT Heparin Drip 67.6 SEC (53-77.9)
[2021-06-27 07:11] VITALS: BP 168/72; PULSE 74; RESP 18; TEMP 36.7; O2SAT 99
[2021-06-27] MEDS: 0.9 % Sodium Chloride Flush 3 ML SYRINGE IVFLUSH (09:43)
[2021-06-27] MEDS: timoloL maleate XE 0.5 % Gel 5 ML DRBTL 1 DROP EYE-RIGHT (09:45)
[2021-06-27] MEDS: prednisoLONE Acetate 1 % Oph Susp 5 ML DRPBTL 1 DROP EYE-BOTH (09:45)
[2021-06-27] MEDS: Acetaminophen 325 MG TABLET 650 MG PO (09:45)
[2021-06-27] MEDS: Fluticasone Propionate Nasal 16 GM SPRAY 1 SPRAY NOSTRIL-B (09:46)
[2021-06-27] MEDS: Atropine Sulfate 1 % Ophth Sol 2 ML BOTTLE 1 DROP EYE-LEFT ×2 (09:46→17:20)
[2021-06-27] MEDS: Ferrous Sulfate 324 MG TABLET.DR PO (09:48)
[2021-06-27] MEDS: Ascorbic Acid 250 MG TABLET PO (09:48)
[2021-06-27] MEDS: glyBURIDE 5 MG TABLET PO (09:48)
[2021-06-27] MEDS: Metoprolol Succinate ER 50 MG TAB.ER.24H PO (09:48)
[2021-06-27] MEDS: Cholecalciferol (Vitamin D3) 25 MCG TABLET 50 MCG PO (09:48)
[2021-06-27] MEDS: amLODIPine Besylate 10 MG TABLET PO (09:49)
[2021-06-27] MEDS: calcitrioL 0.25 MCG CAPSULE PO (09:49)
[2021-06-27 11:52] VITALS: BP 165/65; PULSE 70; RESP 20; TEMP 36.5; O2SAT 98
--- NOTE | 2021-06-27 14:37 | HO.PM.IMPN ---
Subjective Subjective Date of Service: 06/27/21 Interval History: No acute issues overnight. Still noncompliant with most therapies Review of Systems Denies chest pain Denies shortness of breath Denies nausea vomiting diarrhea Denies fever chills Physical Exam Vital Signs: Vital Signs: Last Vital Signs Temp 97.7 F 06/27/21 11:52 Pulse 70 06/27/21 11:52 Resp 20 06/27/21 11:52 BP 165/65 H 06/27/21 11:52 Pulse Ox 98 06/27/21 11:52 BMI result Body Mass Index 25.7 Const: Other: Awake alert no acute distress Resp: Other: Clear to auscultation bilaterally no rales rhonchi or wheezes Cardio: Other: No S4; positive S1-S2; no S3 murmurs rubs or gallops GI: Other: Soft nondistended normoactive bowel sounds x4 quadrants Extrem: Other: Left lower extremity greater than right lower extremity 3:1 Objective Data Active Medications Acetaminophen (Acetaminophen 325 Mg Tablet) 650 mg PO Q6H PRN PRN Reason: Pain, Mild (Pain Scale 1-3) Last Admin: 06/27/21 09:45 Dose: 650 mg Documented by: BRITNEY Amlodipine Besylate (Amlodipine Besylate 10 Mg Tablet) 10 mg PO DAILY [facility]; Protocol Last Admin: 06/27/21 09:49 Dose: 10 mg Documented by: BRITNEY Ascorbic Acid (Ascorbic Acid 250 Mg Tablet) 250 mg PO DAILY [facility] Last Admin: 06/27/21 09:48 Dose: 250 mg Documented by: BRITNEY Atorvastatin Calcium (Atorvastatin Calcium 80 Mg Tablet) 80 mg PO BEDTIME [facility] Last Admin: 06/26/21 20:10 Dose: Not Given Documented by: HEBER Non-Admin Reason: Patient Refused Atropine Sulfate (Atropine Sulfate 1 % Ophth Jacki 2 Ml Bottle) 1 drop EYE-LEFT TID [facility] Last Admin: 06/27/21 09:46 Dose: 1 drop Documented by: BRITNEY Calcitriol (Calcitriol 0.25 Mcg Capsule) 0.25 mcg PO DAILY [facility] Last Admin: 06/27/21 09:49 Dose: 0.25 mcg Documented by: BRITNEY Ferrous Sulfate (Ferrous Sulfate 324 Mg Mariia.) 324 mg PO DAILY [facility] Last Admin: 06/27/21 09:48 Dose: 324 mg Documented by: BRITNEY Fluticasone Propionate (Fluticasone Propionate Nasal 16 Gm [place]) 1 spray NOSTRIL-B DAILY [facility] Last Admin: 06/27/21 09:46 Dose: 1 spray Documented by: BRITNEY Glyburide (Glyburide 5 Mg Tablet) 5 mg PO DAILY [facility] Last Admin: 06/27/21 09:48 Dose: 5 mg Documented by: BRITNEY Heparin Sodium (Porcine) (Heparin Sodium,Porcine 5,000 Unit/Ml Vial) 3,000 unit 40 unit/kg (3000 unit) IVPUSH PROTOCOL BOLUS PRN; Protocol PRN Reason: 40 unit/kg - Heparin Protocol Last Admin: 06/24/21 08:25 Dose: 3,000 unit Documented by: BETZY-ANA Heparin Sodium (Porcine) (Heparin Sodium,Porcine 5,000 Unit/Ml Vial) 6,000 unit 80 unit/kg (6000 unit) IVPUSH PROTOCOL BOLUS PRN; Protocol PRN Reason: 80 unit/kg - Heparin Protocol Heparin Sodium/Sodium Chloride () 25,000 unit in 250 mls @ 0 mls/hr IVCONT .Q0M [facility]; Protocol Last Titration: 06/27/21 07:18 Dose: 10 units/kg/hr, 7.46 mls/hr Documented by: BRITNEY Cosigned by: HUSSAIN Metoprolol Succinate (Metoprolol Succinate Er 50 Mg Tab.Er.24h) 50 mg PO DAILY [facility]; Protocol Last Admin: 06/27/21 09:48 Dose: 50 mg Documented by: BRITNEY Morphine Sulfate (Morphine Sulfate 4 Mg/Ml Cartridge) 4 mg IVPUSH Q2H PRN; Protocol PRN Reason: Pain, Severe (Pain Scale 7-10) Last Admin: 06/19/21 09:59 Dose: 4 mg Documented by: METZNAT Oxycodone HCl (Oxycodone Hcl Immed Release 5 Mg Tablet) 5 mg PO Q4H PRN PRN Reason: Pain, Moderate (Pain Scale 4-6 Pharmacy Consult (Consult Rx Perform Med Rec) 1 each MISCELLANE ONCE PRN PRN Reason: Consult order Pharmacy Consult (Consult Rx Perform Med Rec) 1 each MISCELLANE ONCE PRN PRN Reason: Consult order Prednisolone Acetate (Prednisolone Acetate 1 % Oph Susp 5 Ml Drpbtl) 1 drop EYE-BOTH DAILY [facility] Last Admin: 06/27/21 09:45 Dose: 1 drop Documented by: BRITNEY Sodium Bicarbonate (Sodium Bicarbonate 650 Mg Tablet) 650 mg PO BID [facility] Last Admin: 06/27/21 09:49 Dose: Not Given Documented by: BRITNEY Non-Admin Reason: Patient Refused Sodium Chloride (0.9 % Sodium Chloride Flush 3 Ml Syringe) 3 ml IVFLUSH QSHIFT [facility] Last Admin: 06/27/21 09:43 Dose: 3 ml Documented by: BRITNEY Timolol Maleate (Timolol Maleate Xe 0.5 % Gel 5 Ml Drbtl) 1 drop EYE-RIGHT DAILY [facility] Last Admin: 06/27/21 09:45 Dose: 1 drop Documented by: BRITNEY Vitamin D (Cholecalciferol (Vitamin D3) 25 Mcg Tablet) 50 mcg PO DAILY [facility] Last Admin: 06/27/21 09:48 Dose: 50 mcg Documented by: BRITNEY Warfarin Sodium (Warfarin Sodium 7.5 Mg Tablet) 7.5 mg PO DAILY@1800 [facility] Last Admin: 06/26/21 17:50 Dose: 7.5 mg Documented by: BRITNEY Labs CBC & Chem 7: 06/22/21 06:21 06/20/21 05:38 Labs: Laboratory Results - last 24 hr 06/27/21 06:11 PT 21.1 H INR 1.8 H aPTT Heparin Protocol 67.6 Assessment and Plan (1) DVT (deep venous thrombosis): Status: Acute (2) Anemia: Status: Acute (3) CKD (chronic kidney disease) stage 4, GFR 15-29 ml/min: Status: Acute Plan 76yo F diagnosed with extensive LLE [place] [facility] [place], presented here with LLE swelling after signing out AMA from [facility], found to be anemic....INR 1.8 today 1.Extensive left lower extremity DVT - IVC filter placed 06/19/21 - placed on heparin gtt, refuses enoxaparin - continue heparin until INR> 2 on 2 consecutive draw days 2.Acute/chronic anemia - likely ACKD, transfused 2u pRBCs 06/16/21 with appropriate response in Hb 3. CKD 4 - SCr at baseline - oral bicarbonate - follow renals/divalents 4. HTN - fair control -difficult to manage(compliance) 5. DM2 -acceptable control given limited treatment options - glipizide # dispo - PT: STR recommended, seeking placement options Patient requires continued hospitalization for the following reasons: heparin bridge, STR placement Quality Stroke Does the patient have a stroke diagnosis?: No VTE Prior VTE?: Yes VTE Risk Level:: Medical - moderate - high VTE Device Contraindication: Treatment Not Indicated VTE Drug Contraindication: N/A - Med Ordered
--- NOTE | 2021-06-27 14:53 | MHC.CM.PN ---
Emr reviewed, pt's INR 1.8 today, per hospitalist plan cont's to be for INR to be in therapeutic range x 2 days before she will be cleared for d/c to STR. Cm will cont to follow d/c needs.
[2021-06-27 15:40] VITALS: BP 176/77; PULSE 79; RESP 18; TEMP 36.6; O2SAT 98
[2021-06-27] MEDS: Heparin Sodium,Porcine/1/2NS 25,000 UNIT/250 ML IV.SOLN 7.46 UNIT IVCONT (17:17)
[2021-06-27] MEDS: Warfarin Sodium 7.5 MG TABLET PO (17:20)
[2021-06-27 20:00] VITALS: BP 165/71; PULSE 78; RESP 18; TEMP 36.8; O2SAT 97
[2021-06-27 23:47] VITALS: BP 168/73; PULSE 78; RESP 18; TEMP 37.2; O2SAT 97
[2021-06-28 03:45] VITALS: BP 171/74; PULSE 80; RESP 18; TEMP 36.9; O2SAT 98
[2021-06-28 07:00] LABS: INTERNATIONAL NORM RATIO 2.5 (0.9-1.1); Prothrombin Time 29.3 SEC (9.9-13.0)
[2021-06-28 07:03] LABS: PTT Heparin Drip 77.7 SEC (53-77.9)
[2021-06-28 07:17] LABS: Hematocrit 28.3 % (37.0-47.0); Hemoglobin 9.3 g/dl (12.0-16.0); Mean Corpuscular HGB Conc 32.9 g/dl (31.0-35.0); Mean Corpuscular Hemoglobin 29.6 pg (27.0-33.0); Mean Corpuscular Volume 90.1 fL (80.0-98.0); Mean Platelet Volume 10.7 fL (9.4-12.3); Platelet Count 209 X10*3/uL (160-400); Red Blood Count 3.14 X10*6/uL (4.20-5.50); Red Cell Distribution Width 13.7 % (11.0-16.0); White Blood Count 10.3 X10*3/uL (4.8-10.8)
[2021-06-28 07:25] LABS: Alanine Aminotransferase 12 U/L (0-31); Albumin Level 3.2 g/dL (3.5-5.0); Alkaline Phosphatase 70 U/L (39-117); Anion Gap 12 (12-20); Aspartate Amino Transferase 10 U/L (5-31); Bilirubin Total 0.2 mg/dL (0.0-1.0); Blood Urea Nitrogen 69 mg/dL (9-16); Calcium 8.8 mg/dL (8.4-10.2); Carbon Dioxide 17 mmol/L (22-29); Chloride 113 mmol/L (96-108); Creatinine Clr Calc Pharmacy 13.4; Estimated Glomerular Filt Rate 12; Glucose Fasting 104 mg/dL (60-99); Potassium 4.3 mmol/L (3.3-5.1); Sodium 138 mmol/L (135-145); Total Protein 6.3 g/dL (6.5-8.0)
[2021-06-28 07:54] VITALS: BP 161/72; PULSE 80; RESP 17; TEMP 36.7; O2SAT 95
[2021-06-28] MEDS: Ascorbic Acid 250 MG TABLET PO (10:41)
[2021-06-28] MEDS: Cholecalciferol (Vitamin D3) 25 MCG TABLET 50 MCG PO (10:41)
[2021-06-28] MEDS: calcitrioL 0.25 MCG CAPSULE PO (10:42)
[2021-06-28] MEDS: Ferrous Sulfate 324 MG TABLET.DR PO (10:42)
[2021-06-28] MEDS: glyBURIDE 5 MG TABLET PO (10:47)
[2021-06-28] MEDS: Metoprolol Succinate ER 50 MG TAB.ER.24H PO (10:47)
[2021-06-28] MEDS: amLODIPine Besylate 10 MG TABLET PO (10:48)
[2021-06-28] MEDS: Fluticasone Propionate Nasal 16 GM SPRAY 1 SPRAY NOSTRIL-B (10:55)
[2021-06-28] MEDS: Atropine Sulfate 1 % Ophth Sol 2 ML BOTTLE 1 DROP EYE-LEFT ×3 (10:56→20:53)
[2021-06-28] MEDS: prednisoLONE Acetate 1 % Oph Susp 5 ML DRPBTL 1 DROP EYE-BOTH (10:57)
[2021-06-28] MEDS: timoloL maleate XE 0.5 % Gel 5 ML DRBTL 1 DROP EYE-RIGHT (10:58)
[2021-06-28] MEDS: Acetaminophen 325 MG TABLET 650 MG PO (11:02)
[2021-06-28 11:39] VITALS: BP 165/73; PULSE 81; RESP 17; TEMP 36.4; O2SAT 97
--- NOTE | 2021-06-28 12:45 | HO.PM.IMPN ---
Subjective Subjective Date of Service: 06/28/21 Interval History: No acute issues overnight Review of Systems Denies chest pain Denies shortness of breath Denies nausea vomiting diarrhea Denies fever chills Physical Exam Vital Signs: Vital Signs: Last Vital Signs Temp 97.6 F 06/28/21 11:39 Pulse 81 06/28/21 11:39 Resp 17 06/28/21 11:39 BP 165/73 H 06/28/21 11:39 Pulse Ox 97 06/28/21 11:39 BMI result Body Mass Index 25.7 Const: Other: No acute distress Resp: Other: Clear to auscultation bilaterally no rales rhonchi or wheezes Cardio: Other: No S4. Positive S1-S2 no S3 murmurs rubs or gallops Extrem: Other: No edema bilaterally Objective Data Active Medications Acetaminophen (Acetaminophen 325 Mg Tablet) 650 mg PO Q6H PRN PRN Reason: Pain, Mild (Pain Scale 1-3) Last Admin: 06/28/21 11:02 Dose: 650 mg Documented by: SANJUANITA Amlodipine Besylate (Amlodipine Besylate 10 Mg Tablet) 10 mg PO DAILY [facility]; Protocol Last Admin: 06/28/21 10:48 Dose: 10 mg Documented by: SANJUANITA Ascorbic Acid (Ascorbic Acid 250 Mg Tablet) 250 mg PO DAILY [facility] Last Admin: 06/28/21 10:41 Dose: 250 mg Documented by: SANJUANITA Atorvastatin Calcium (Atorvastatin Calcium 80 Mg Tablet) 80 mg PO BEDTIME [facility] Last Admin: 06/27/21 20:50 Dose: Not Given Documented by: MARLIN Non-Admin Reason: Patient Refused Atropine Sulfate (Atropine Sulfate 1 % [facility] Jacki 2 Ml Bottle) 1 drop EYE-LEFT TID [facility] Last Admin: 06/28/21 10:56 Dose: 1 drop Documented by: SANJUANITA Calcitriol (Calcitriol 0.25 Mcg Capsule) 0.25 mcg PO DAILY [facility] Last Admin: 06/28/21 10:42 Dose: 0.25 mcg Documented by: SANJUANITA Ferrous Sulfate (Ferrous Sulfate 324 Mg Tablet.Dr) 324 mg PO DAILY [facility] Last Admin: 06/28/21 10:42 Dose: 324 mg Documented by: SANJUANITA Fluticasone Propionate (Fluticasone Propionate Nasal 16 Gm [place]) 1 spray NOSTRIL-B DAILY [facility] Last Admin: 06/28/21 10:55 Dose: 1 spray Documented by: SANJUANITA Glyburide (Glyburide 5 Mg Tablet) 5 mg PO DAILY [facility] Last Admin: 06/28/21 10:47 Dose: 5 mg Documented by: SANJUANITA Heparin Sodium (Porcine) (Heparin Sodium,Porcine 5,000 Unit/Ml Vial) 3,000 unit 40 unit/kg (3000 unit) IVPUSH PROTOCOL BOLUS PRN; Protocol PRN Reason: 40 unit/kg - Heparin Protocol Last Admin: 06/24/21 08:25 Dose: 3,000 unit Documented by: LEWIS Heparin Sodium (Porcine) (Heparin Sodium,Porcine 5,000 Unit/Ml Vial) 6,000 unit 80 unit/kg (6000 unit) IVPUSH PROTOCOL BOLUS PRN; Protocol PRN Reason: 80 unit/kg - Heparin Protocol Heparin Sodium/Sodium Chloride () 25,000 unit in 250 mls @ 0 mls/hr IVCONT .Q0M RAUL; Protocol Last Titration: 06/28/21 07:26 Dose: 10 units/kg/hr, 7.46 mls/hr Documented by: BRITNEY Cosigned by: SUSAN Metoprolol Succinate (Metoprolol Succinate Er 50 Mg Tab.Er.24h) 50 mg PO DAILY [facility]; Protocol Last Admin: 06/28/21 10:47 Dose: 50 mg Documented by: SANJUANITA Pharmacy Consult (Consult Rx Perform Med Rec) 1 each MISCELLANE ONCE PRN PRN Reason: Consult order Pharmacy Consult (Consult Rx Perform Med Rec) 1 each MISCELLANE ONCE PRN PRN Reason: Consult order Prednisolone Acetate (Prednisolone Acetate 1 % Oph Susp 5 Ml Drpbtl) 1 drop EYE-BOTH DAILY [facility] Last Admin: 06/28/21 10:57 Dose: 1 drop Documented by: SANJUANITA Sodium Bicarbonate (Sodium Bicarbonate 650 Mg Tablet) 650 mg PO BID [facility] Last Admin: 06/28/21 10:55 Dose: Not Given Documented by: SANJUANITA Non-Admin Reason: Patient Refused Sodium Chloride (0.9 % Sodium Chloride Flush 3 Ml Syringe) 3 ml IVFLUSH QSHIFT [facility] Last Admin: 06/28/21 09:41 Dose: Not Given Documented by: SANJUANITA Non-Admin Reason: IV Running Timolol Maleate (Timolol Maleate Xe 0.5 % Gel 5 Ml Drbtl) 1 drop EYE-RIGHT DAILY [facility] Last Admin: 06/28/21 10:58 Dose: 1 drop Documented by: SANJUANITA Vitamin D (Cholecalciferol (Vitamin D3) 25 Mcg Tablet) 50 mcg PO DAILY [facility] Last Admin: 06/28/21 10:41 Dose: 50 mcg Documented by: SANJUANITA Warfarin Sodium (Warfarin Sodium 5 Mg Tablet) 5 mg PO DAILY@1800 [facility] Labs CBC & Chem 7: 06/28/21 06:09 06/28/21 06:09 Labs: Laboratory Results - last 24 hr 06/28/21 06/28/21 06/28/21 06:09 06:09 06:09 MCV 90.1 MCH 29.6 MCHC 32.9 RDW 13.7 Plt Count 209 MPV 10.7 Absolute Nucleated RBC 0.000 Nucleated RBC % (auto) 0.0 PT 29.3 H INR 2.5 H aPTT Heparin Protocol 77.7 Anion Gap 12 Estim Creat Clear Calc 13.4 Estimated GFR 12 Fasting Glucose 104 H Calcium 8.8 Total Bilirubin 0.2 AST 10 ALT 12 Alkaline Phosphatase 70 Total Protein 6.3 L Albumin 3.2 L Assessment and Plan (1) DVT (deep venous thrombosis): Status: Acute (2) Acute kidney injury superimposed on CKD: Status: Acute (3) Type 2 diabetes mellitus: Status: Acute Plan 76yo F diagnosed with extensive LLE DVT at [facility] 06/01/21, presented here with LLE swelling after signing out AMA from [facility], found to be anemic....INR 2.4 today 1.Extensive left lower extremity DVT - IVC filter placed 06/19/21 - placed on heparin gtt, refuses enoxaparin - continue heparin until INR> 2 on 2 consecutive draw days; if greater than 2 5 20 May be discharged to rehab 2.Acute/chronic anemia - likely ACKD, transfused 2u pRBCs 06/16/21 with appropriate response in Hb 3. CKD 4 - SCr at baseline - oral bicarbonate - follow renals/divalents 4. HTN - fair control -difficult to manage(compliance) 5. DM2 -acceptable control given limited treatment options - glipizide # dispo - PT: STR recommended, seeking placement options Patient requires continued hospitalization for the following reasons: heparin bridge, STR placement Quality Stroke Does the patient have a stroke diagnosis?: No VTE Prior VTE?: Yes VTE Risk Level:: Medical - moderate - high VTE Device Contraindication: Treatment Not Indicated VTE Drug Contraindication: N/A - Med Ordered
--- NOTE | 2021-06-28 12:49 | P.DS_ITS ---
DS: Providers Provider Date of Service: 06/28/21 Date of admission: 06/16/21 16:10 Date of discharge: 06/28/21 Primary care physician: Alex Spence MD Consults: 06/17/21 07:14 Consult to Nephrology Routine Consulting Provider: Rudolph Pardo Reason for consultation: CKD Has provider been notified: No 06/17/21 07:24 Consult to Vascular Surgery Routine Consulting Provider: Mateo Blood Reason for consultation: LLE deep system clot Has provider been notified: No 06/19/21 09:19 Consult to Hematology / Oncology Routine Consulting Provider: [facility]ology Reason for consultation: thrombosed LLE despite eliquis.. ?noncompliant? IVCF planned, AC plan? DS: Diagnosis Discharge Diagnosis (1) DVT (deep venous thrombosis): Status: Acute (2) Acute kidney injury superimposed on CKD: Status: Resolved (3) Type 2 diabetes mellitus: Status: Acute DS: Summary Hospital Course Hospital Course: 76-year-old female recently admitted to rehab for left lower extremity DVT.? Routine labs demonstrated a hemoglobin 7.2 was scheduled for transfusion.? Patient unhappy with her care and signed out AMA.? Presents to [facility] with a worsening left lower extremity edema in backdrop of ongoing Eliquis therapy.? She voices no cardiac complaints at this time she will be admitted for transfusion and workup of left lower extremity edema Hospital course Admitted to general medical floor and transfused 2 appropriate hemoglobin. Patient was started on heparin drip assuming failed Eliquis therapy in the backdrop of chronic kidney disease. She was seen in consultation by vascular surgery; on 06/19/2021 patient underwent ultrasound-guided insertion of an inferior vena cava filter without incident. She was subsequently maintained on heparin as a bridge until INR was trending up and was then discontinued. Her INR then began trending down. The patient did not want to stay in the hospital so the case was discussed with hematology. She should take 4mg of coumadin on the day of discharge followed by 3 mg daily until INR is checked on Friday. Tuesdays INR will be cc to both Dr. Monroy as well as patient's PCP. Coumadin dose should be adjusted from there. She should follow in the coumadin clinic for INR's following that. UTI mixed bacteria in urine final culture. finished ceftriaxone 3 days Extensive left lower extremity DVT. failed Eliquis. IVC filter placed 06/19/21. Dose of coumdin increased to 4 mg on day of discharge. Acute/chronic anemia related to CKD stage IV, transfused 2u pRBCs 06/16/21 with appropriate response in Hb worsening CKD 4, metabolic acidosis. patient has refused IV and oral bicarbonate. she was followed by nephrology and is also declining dialysis. She will be discharged home on oral sodium bicarb and should follow up with nephrology as outpatient. HTN. metoprolol was added to Norvasc for adequate BP control. DM2 control given limited treatment options. glipizide dose changed to 2.5 mg daily. physical deconditioning - PT: STR recommended, seeking placement options - pt declined all options presented and opted to return home without services. Time Spent with Patient Time attestation: Total time spent providing and/or coordinating discharge services: Discharge coordination time: Greater than 30 minutes Quality: Safe Use of Opioids Does Pt have an Active Cancer Diagnosis on the Problem List?: No Quality: Stroke Does the patient have a stroke diagnosis?: No Physical Exam Vital Signs: Vital Signs: Last Vital Signs Temp 97.6 F 06/28/21 11:39 Pulse 81 06/28/21 11:39 Resp 17 06/28/21 11:39 BP 165/73 H 06/28/21 11:39 Pulse Ox 97 06/28/21 11:39 BMI result Body Mass Index 25.7 Const: Other: No acute distress Resp: Other: Clear to auscultation bilaterally no rales rhonchi or wheezes Cardio: Other: No S4. Positive S1-S2 no S3 murmurs rubs or gallops Extrem: Other: No edema bilaterally DS: Data Data Completed and Pending Completed studies during hospitalization [Text1]: Procedures Bypass Left Femoral Artery to Right Femoral Artery with Synthetic Substitute, Open Approach (07/27/20) Detachment at Right 1st Toe, Complete, Open Approach (07/27/20) Dilation of Left External Iliac Artery using Drug-Coated Balloon, Percutaneous Approach (04/14/20) Extirpation of Matter from Right Femoral Artery, Open Approach (07/27/20) Insertion of Infusion Device into Superior Vena Cava, Percutaneous Approach (04/14/20) Transfusion of Nonautologous Red Blood Cells into Peripheral Vein, Percutaneous Approach (07/27/20) Ultrasonography of Superior Vena Cava, Guidance (04/14/20) Labs on day of discharge: Laboratory Results - last 24 hr 06/28/21 06/28/21 06/28/21 06:09 06:09 06:09 WBC 10.3 RBC 3.14 L Hgb 9.3 L Hct 28.3 L MCV 90.1 MCH 29.6 MCHC 32.9 RDW 13.7 Plt Count 209 MPV 10.7 Absolute Nucleated RBC 0.000 Nucleated RBC % (auto) 0.0 PT 29.3 H INR 2.5 H aPTT Heparin Protocol 77.7 Sodium 138 Potassium 4.3 Chloride 113 H Carbon Dioxide 17 L Anion Gap 12 BUN 69 H Creatinine 3.69 H Estim Creat Clear Calc 13.4 Estimated GFR 12 Fasting Glucose 104 H Calcium 8.8 Total Bilirubin 0.2 AST 10 ALT 12 Alkaline Phosphatase 70 Total Protein 6.3 L Albumin 3.2 L Discharge Plan Discharge Anticipated Discharge Date/Time: 07/09/21 09:32 Patient Disposition: Home Health Service Discharge Diagnosis: LLE DVT CKD4 metabolic acidosis Referrals: [facility] coumadin clinic [Other] - 3-5 Days (please call them to set up appointmnet [phone] friday you will need to come back to the [facility] for ourtpatient labs for checking your inr. as you will not start with the coumadin clinic until a later date ) Alex Spence MD [Primary Care Provider] - 1 Week Mateo Blood MD [Physician] - 1 Week Discharge Medications: New metoprolol succinate 50 mg Tablet Extended Release 24 Hr 50 mg PO DAILY Qty: 30 0RF Protocol: Hold for SBP/HR < HOLD for SBP < : 90 HOLD for HR < : 60 warfarin 3 mg tablet 3 mg PO DAILY Qty: 30 0RF glyburide 5 mg Tablet 2.5 mg PO DAILY 30 Days Qty: 15 0RF Continued prednisolone acetate 1 % drops,suspension 1 drp ophthalmic (eye) DAILY atropine 1 % drops 1 drp ophthalmic-Left TID calcitriol 0.25 mcg Capsule 0.25 mcg PO DAILY cyanocobalamin (vitamin B-12) 1,000 mcg/mL Kit 1,000 mcg IM QMONTH Rx Instructions: on the 10th of each month ascorbic acid (vitamin C) 500 mg Tablet 250 mg PO DAILY ferrous sulfate 325 mg (65 mg iron) Tablet 325 mg PO DAILY fluticasone propionate 50 mcg/actuation [place],Suspension 1 spray INTRANASAL DAILY cholecalciferol (vitamin D3) 25 mcg (1,000 unit) Tablet 50 mcg PO DAILY timolol maleate 0.25 % drops 1 drp ophthalmic-Right DAILY vitamin E 400 unit Capsule 400 unit PO DAILY atorvastatin 80 mg Tablet 80 mg PO BEDTIME amlodipine 5 mg Tablet 5 mg PO DAILY sodium bicarbonate 650 mg Tablet 650 mg PO BID Discontinued glyburide 5 mg Tablet 5 mg PO DAILY aspirin 325 mg Tablet 325 mg PO DAILY apixaban 5 mg Tablet 5 mg PO BID Discharge Orders: Discharge Order (Routine); Ordered 07/09/21 Ordered By: Ronda Yoo Diet: Advance to usual diet Activity on Discharge: As tolerated Stand Alone Forms: Patient Portal Discharge page Other Ambulatory Orders: Basic Metabolic Panel (Routine) Timeframe: 1 Week Facility: [facility] - Location: Laboratory Ordered By: Lois Napier Complete Blood Count no Diff (Routine) Timeframe: 1 Week Facility: [facility] - Location: Laboratory Ordered By: Lois Napier Prothrombin Time INR (Routine) Timeframe: [id number] Facility: [facility] - Location: Laboratory Ordered By: Lois Napier Care Plan Goals: See below Health Concerns: DVT CKD Plan of Treatment: Call to schedule follow up with PCP Call to schedule follow up with nephrology Follow-up with Dr. Blood in 2 weeks Take coumadin 3mg daily until labs are checked on Friday Get INR checked on Friday. Dose of INR will be adjusted based on the dose. Follow up in the coumadin clinic for INR monitoring. Dose of gliburide has been decreased to 2.5 mg daily metoprolol has been added for blood pressure control Assessment: See discharge summary Discharge Date/Time: 07/09/21 11:36
--- NOTE | 2021-06-28 14:07 | MHC.CM.PN ---
NURSE PSYCHOLOGY ASSISTANT NTOE REFERRALS U[DATED AND SENT TO VARIOUS FACILITIES PATIENT MAY NOT GET HER FIRST CHOICE AND WILL NEED [facility] DISCHARGE PLAN FOR 06/29/21 TO REHAB STR AND THEN [facility] SPOKE WITH [facility] AND HER INR NEEDS TO BE > 2.0 FOR TWO CONSECUTATIVE DAYS . HER FIRST CHOICE IS [facility]
[2021-06-28 16:00] VITALS: BP 153/61; PULSE 76; RESP 20; TEMP 36.8; O2SAT 98
[2021-06-28] MEDS: Warfarin Sodium 5 MG TABLET PO (17:52)
[2021-06-28 19:28] VITALS: BP 166/75; PULSE 88; RESP 18; TEMP 37.1; O2SAT 94
[2021-06-28 23:41] VITALS: BP 161/62; PULSE 80; RESP 18; TEMP 37.4; O2SAT 97
[2021-06-29] VITALS (7 sets, daily range): BP systolic 153–177; BP diastolic 58–72; PULSE 75–86; RESP 14–20; TEMP 36.7–37.5; O2SAT 96–99; BMI 25.7
[2021-06-29] MEDS: Heparin Sodium,Porcine/1/2NS 25,000 UNIT/250 ML IV.SOLN 7.46 UNIT IVCONT (03:38)
[2021-06-29 06:49] LABS: INTERNATIONAL NORM RATIO 3.1 (0.9-1.1); Prothrombin Time 36.7 SEC (9.9-13.0)
[2021-06-29 06:52] LABS: PTT Heparin Drip 79.6 SEC (53-77.9)
--- NOTE | 2021-06-29 07:37 | PC.NURSE ---
Heparin Drip discontinued by Dr. Parks at 7:29 AM. Spoke with Madeleine pharmacist to confirm.
--- NOTE | 2021-06-29 10:05 | P.PNIM_ITS ---
Subjective Subjective Date of Service: 06/29/21 Interval History: the patient was seen and evaluated this morning Laying in bed, feels comfortable Reports having episode of diarrhea Hemoglobin stable, INR above 3 No reported other overnight events. Systemic review: No fever, chills or weakness No chest pain, palpitation No shortness of breath or coughing No abdominal pain, nausea or vomiting but had episode of diarrhea No urinary symptoms No any rash or wounds Physical Exam Vital Signs: Vital Signs: Last Vital Signs Temp 99.1 F 06/29/21 07:48 Pulse 75 06/29/21 07:48 Resp 17 06/29/21 07:48 BP 162/70 H 06/29/21 07:48 Pulse Ox 99 06/29/21 07:48 BMI result Body Mass Index 25.7 Const: Other: Constitutional : interactive, blind,not in distress Neck : Normal inspection, Supple Cardiovascular : RRR, no JVP, no lower extremity edema Respiratory : fair bilateral air entry, no crackles, wheezes or rhonchi Gastrointestinal: soft, lax, Normal bowel sounds, Non tender Skin : Warm, Dry Neurological : Alert & oriented x3, No focal deficit , CN 2-12 within normal Objective Data Active Medications Acetaminophen (Acetaminophen 325 Mg Tablet) 650 mg PO Q6H PRN PRN Reason: Pain, Mild (Pain Scale 1-3) Last Admin: 06/28/21 11:02 Dose: 650 mg Documented by: SANJUANITA Amlodipine Besylate (Amlodipine Besylate 10 Mg Tablet) 10 mg PO DAILY [facility]; Protocol Last Admin: 06/28/21 10:48 Dose: 10 mg Documented by: SANJUANITA Ascorbic Acid (Ascorbic Acid 250 Mg Tablet) 250 mg PO DAILY [facility] Last Admin: 06/28/21 10:41 Dose: 250 mg Documented by: SANJUANITA Atorvastatin Calcium (Atorvastatin Calcium 80 Mg Tablet) 80 mg PO BEDTIME [facility] Last Admin: 06/28/21 20:55 Dose: Not Given Documented by: REBECCA Non-Admin Reason: Patient Refused Atropine Sulfate (Atropine Sulfate 1 % Ophth Jacki 2 Ml Bottle) 1 drop EYE-LEFT TID [facility] Last Admin: 06/28/21 20:53 Dose: 1 drop Documented by: REBECCA Calcitriol (Calcitriol 0.25 Mcg Capsule) 0.25 mcg PO DAILY [facility] Last Admin: 06/28/21 10:42 Dose: 0.25 mcg Documented by: SANJUANITA Ferrous Sulfate (Ferrous Sulfate 324 Mg Tablet.Dr) 324 mg PO DAILY [facility] Last Admin: 06/28/21 10:42 Dose: 324 mg Documented by: SANJUANITA Fluticasone Propionate (Fluticasone Propionate Nasal 16 Gm [place]) 1 spray NOSTRIL-B DAILY [facility] Last Admin: 06/28/21 10:55 Dose: 1 spray Documented by: SANJUANITA Glyburide (Glyburide 5 Mg Tablet) 5 mg PO DAILY [facility] Last Admin: 06/28/21 10:47 Dose: 5 mg Documented by: SANJUANITA Metoprolol Succinate (Metoprolol Succinate Er 50 Mg Tab.Er.24h) 50 mg PO DAILY [facility]; Protocol Last Admin: 06/28/21 10:47 Dose: 50 mg Documented by: SANJUANITA Pharmacy Consult (Consult Rx Perform Med Rec) 1 each MISCELLANE ONCE PRN PRN Reason: Consult order Pharmacy Consult (Consult Rx Perform Med Rec) 1 each MISCELLANE ONCE PRN PRN Reason: Consult order Prednisolone Acetate (Prednisolone Acetate 1 % Oph Susp 5 Ml Drpbtl) 1 drop EYE-BOTH DAILY [facility] Last Admin: 06/28/21 10:57 Dose: 1 drop Documented by: SANJUANITA Sodium Bicarbonate (Sodium Bicarbonate 650 Mg Tablet) 650 mg PO BID [facility] Last Admin: 06/28/21 20:55 Dose: Not Given Documented by: REBECCA Non-Admin Reason: Patient Refused Sodium Chloride (0.9 % Sodium Chloride Flush 3 Ml Syringe) 3 ml IVFLUSH QSHIFT [facility] Last Admin: 06/28/21 23:40 Dose: Not Given Documented by: REBECCA Non-Admin Reason: IV Running Timolol Maleate (Timolol Maleate Xe 0.5 % Gel 5 Ml Drbtl) 1 drop EYE-RIGHT DAILY [facility] Last Admin: 06/28/21 10:58 Dose: 1 drop Documented by: SANJUANITA Vitamin D (Cholecalciferol (Vitamin D3) 25 Mcg Tablet) 50 mcg PO DAILY [facility] Last Admin: 06/28/21 10:41 Dose: 50 mcg Documented by: SANJUANITA Warfarin Sodium (Warfarin Sodium 3 Mg Tablet) 3 mg PO DAILY@1800 [facility] Labs CBC & Chem 7: 06/28/21 06:09 06/28/21 06:09 Labs: Laboratory Results - last 24 hr 06/29/21 05:59 PT 36.7 H INR 3.1 H aPTT Heparin Protocol 79.6 H Assessment and Plan (1) Acute kidney injury superimposed on CKD: Status: Acute (2) DVT (deep venous thrombosis): Status: Acute Plan 76yo F diagnosed with extensive LLE DVT at [facility] 06/01/21, presented here with LLE swelling after signing out AMA from [facility], found to be anemic....INR 2.4 today Extensive left lower extremity DVT failed Eliquis IVC filter placed 06/19/21 Discontinue heparin gtt, refuses enoxaparin hold warfarin for today, restart a lower dose of 3 mg at time of discharge to SNF Acute/chronic anemia related to CKD stage IV, transfused 2u pRBCs 06/16/21 with appropriate response in Hb CKD 4 SCr at baseline oral bicarbonate follow renals/divalents HTN fair control difficult to manage(compliance) DM2 control given limited treatment options continue glipizide physical deconditioning PT: STR recommended, seeking placement options Patient requires continued hospitalization for the following reasons: Monitoring INR pending safe discharge plan and STR placement Quality Stroke Does the patient have a stroke diagnosis?: No VTE Prior VTE?: Yes VTE Risk Level:: Medical - moderate - high VTE Device Contraindication: Treatment Not Indicated VTE Drug Contraindication: N/A - Med Ordered
[2021-06-29] MEDS: Ferrous Sulfate 324 MG TABLET.DR PO (11:08)
[2021-06-29] MEDS: amLODIPine Besylate 10 MG TABLET PO (11:09)
[2021-06-29] MEDS: glyBURIDE 5 MG TABLET PO (11:09)
[2021-06-29] MEDS: prednisoLONE Acetate 1 % Oph Susp 5 ML DRPBTL 1 DROP EYE-BOTH (11:11)
[2021-06-29] MEDS: timoloL maleate XE 0.5 % Gel 5 ML DRBTL 1 DROP EYE-RIGHT (11:11)
[2021-06-29] MEDS: Fluticasone Propionate Nasal 16 GM SPRAY 1 SPRAY NOSTRIL-B (11:12)
[2021-06-29] MEDS: Atropine Sulfate 1 % Ophth Sol 2 ML BOTTLE 1 DROP EYE-LEFT ×3 (11:12→20:54)
[2021-06-29] MEDS: calcitrioL 0.25 MCG CAPSULE PO (11:12)
[2021-06-29] MEDS: Ascorbic Acid 250 MG TABLET PO (11:13)
[2021-06-29] MEDS: Cholecalciferol (Vitamin D3) 25 MCG TABLET 50 MCG PO (11:13)
--- NOTE | 2021-06-29 15:16 | MHC.CM.PN ---
Addendum entered by Marycarmen Taylor 06/29/21 15:48: LATE RESPONES [facility] WILL FOLLOW [facility] ON FRIDAY , [facility] ASKE ABOUT NUMBER OF DENIALS (SENT ). [employer] ;ISTED THEM [employer] CONTRACTS) Original Note: nurse case therapist note electronic medical record reviewed along with case discussed with bailey nurse and cathy t and physical theropaist , patient is not actively particip[ating in her therapy, expressed frustration that i could not find her a skilled nurisng fzcility , she reports she wants somewhere good that she can get good rehab and not a detention i explained that as she is not participating it looks more like long-term care now, she reported she wants 3hrs qd like when she qas in encomapss, i explained at this time she doesnot meet eligeability reuirement , i asked if i could reach out to family and she reported there was no need to and did not want me to call anyone her daughter comes [place] [facility] AND IF HER DAUGHTER HAD QUESTIONS THE PATIENT COULD ANSWER THEM . NUMEROUS REFERRALS DENT FOR SENIOR CARE FZCILITY NO ACCEPTANCE OFFERS YET AND THEN WILL NEED INS AUTH
[2021-06-29] MEDS: 0.9 % Sodium Chloride Flush 3 ML SYRINGE IVFLUSH (16:01)
[2021-06-30] MEDS: 0.9 % Sodium Chloride Flush 3 ML SYRINGE IVFLUSH ×4 (01:18→20:12)
[2021-06-30 03:55] VITALS: BP 150/55; PULSE 85; RESP 18; TEMP 36.4; O2SAT 97
[2021-06-30 06:41] LABS: INTERNATIONAL NORM RATIO 2.8 (0.9-1.1); Prothrombin Time 33.1 SEC (9.9-13.0)
[2021-06-30 07:07] VITALS: BP 148/67; PULSE 80; RESP 18; TEMP 36.7; O2SAT 97
[2021-06-30] MEDS: Cholecalciferol (Vitamin D3) 25 MCG TABLET 50 MCG PO (09:23)
[2021-06-30] MEDS: calcitrioL 0.25 MCG CAPSULE PO (09:23)
[2021-06-30] MEDS: Ferrous Sulfate 324 MG TABLET.DR PO (09:23)
[2021-06-30] MEDS: Ascorbic Acid 250 MG TABLET PO (09:23)
[2021-06-30] MEDS: Metoprolol Succinate ER 50 MG TAB.ER.24H PO (09:23)
[2021-06-30] MEDS: amLODIPine Besylate 10 MG TABLET PO (09:24)
[2021-06-30] MEDS: glyBURIDE 5 MG TABLET PO (09:24)
[2021-06-30] MEDS: timoloL maleate XE 0.5 % Gel 5 ML DRBTL 1 DROP EYE-RIGHT (09:48)
[2021-06-30] MEDS: Fluticasone Propionate Nasal 16 GM SPRAY 1 SPRAY NOSTRIL-B (09:48)
[2021-06-30] MEDS: Atropine Sulfate 1 % Ophth Sol 2 ML BOTTLE 1 DROP EYE-LEFT ×2 (09:48→15:40)
[2021-06-30] MEDS: prednisoLONE Acetate 1 % Oph Susp 5 ML DRPBTL 1 DROP EYE-BOTH (09:48)
--- NOTE | 2021-06-30 10:03 | HO.PM.IMPN ---
Subjective Subjective Date of Service: 06/30/21 Interval History: the patient was seen and evaluated this morning Laying in bed, feels comfortable Reports burning urination Hemoglobin stable, INR 2.8 No reported other overnight events. Systemic review: No fever, chills or weakness No chest pain, palpitation No shortness of breath or coughing No abdominal pain, nausea or vomiting No urinary symptoms No any rash or wounds Physical Exam Vital Signs: Vital Signs: Last Vital Signs Temp 98.1 F 06/30/21 07:07 Pulse 80 06/30/21 07:07 Resp 18 06/30/21 07:07 BP 148/67 H 06/30/21 07:07 Pulse Ox 97 06/30/21 07:07 BMI result Body Mass Index 25.7 Const: Other: Constitutional : interactive, blind,not in distress Neck : Normal inspection, Supple Cardiovascular : RRR, no JVP, no lower extremity edema Respiratory : fair bilateral air entry, no crackles, wheezes or rhonchi Gastrointestinal: soft, lax, Normal bowel sounds, Non tender Skin : Warm, Dry Neurological : Alert & oriented x3, No focal deficit , CN 2-12 within normal Objective Data Active Medications Acetaminophen (Acetaminophen 325 Mg Tablet) 650 mg PO Q6H PRN PRN Reason: Pain, Mild (Pain Scale 1-3) Last Admin: 06/28/21 11:02 Dose: 650 mg Documented by: SANJUANITA Amlodipine Besylate (Amlodipine Besylate 10 Mg Tablet) 10 mg PO DAILY [facility]; Protocol Last Admin: 06/30/21 09:24 Dose: 10 mg Documented by: HUSSAIN Ascorbic Acid (Ascorbic Acid 250 Mg Tablet) 250 mg PO DAILY [facility] Last Admin: 06/30/21 09:23 Dose: 250 mg Documented by: HUSSAIN Atorvastatin Calcium (Atorvastatin Calcium 80 Mg Tablet) 80 mg PO BEDTIME [facility] Last Admin: 06/29/21 20:56 Dose: Not Given Documented by: SRIRAM Non-Admin Reason: Patient Refused Atropine Sulfate (Atropine Sulfate 1 % Oph Jacki 2 Ml Bottle) 1 drop EYE-LEFT TID [facility] Last Admin: 06/30/21 09:48 Dose: 1 drop Documented by: HUSSAIN Calcitriol (Calcitriol 0.25 Mcg Capsule) 0.25 mcg PO DAILY [facility] Last Admin: 06/30/21 09:23 Dose: 0.25 mcg Documented by: HUSSAIN Ferrous Sulfate (Ferrous Sulfate 324 Mg Tablet.Dr) 324 mg PO DAILY [facility] Last Admin: 06/30/21 09:23 Dose: 324 mg Documented by: HUSSAIN Fluticasone Propionate (Fluticasone Propionate Nasal 16 Gm [place]) 1 spray NOSTRIL-B DAILY [facility] Last Admin: 06/30/21 09:48 Dose: 1 spray Documented by: HUSSAIN Glyburide (Glyburide 5 Mg Tablet) 5 mg PO DAILY [facility] Last Admin: 06/30/21 09:24 Dose: 5 mg Documented by: HUSSAIN Metoprolol Succinate (Metoprolol Succinate Er 50 Mg Tab.Er.24h) 50 mg PO DAILY [facility]; Protocol Last Admin: 06/30/21 09:23 Dose: 50 mg Documented by: HUSSAIN Pharmacy Consult (Consult Rx Perform Med Rec) 1 each MISCELLANE ONCE PRN PRN Reason: Consult order Pharmacy Consult (Consult Rx Perform Med Rec) 1 each MISCELLANE ONCE PRN PRN Reason: Consult order Prednisolone Acetate (Prednisolone Acetate 1 % Oph Susp 5 Ml Drpbtl) 1 drop EYE-BOTH DAILY [facility] Last Admin: 06/30/21 09:48 Dose: 1 drop Documented by: HUSSAIN Sodium Bicarbonate (Sodium Bicarbonate 650 Mg Tablet) 650 mg PO BID [facility] Last Admin: 06/30/21 09:24 Dose: Not Given Documented by: HUSSAIN Non-Admin Reason: Patient Refused Sodium Chloride (0.9 % Sodium Chloride Flush 3 Ml Syringe) 3 [facility] Last Admin: 06/30/21 09:24 Dose: 3 ml Documented by: HUSSAIN Timolol Maleate (Timolol Maleate Xe 0.5 % Gel 5 Ml Drbtl) 1 drop EYE-RIGHT DAILY [facility] Last Admin: 06/30/21 09:48 Dose: 1 drop Documented by: HUSSAIN Vitamin D (Cholecalciferol (Vitamin D3) 25 Mcg Tablet) 50 mcg PO DAILY [facility] Last Admin: 06/30/21 09:23 Dose: 50 mcg Documented by: HUSSAIN Warfarin Sodium (Warfarin Sodium 3 Mg Tablet) 3 mg PO DAILY@1800 [facility] Labs CBC & Chem 7: 06/28/21 06:09 06/28/21 06:09 Labs: Laboratory Results - last 24 hr 06/30/21 05:32 PT 33.1 H INR 2.8 H Assessment and Plan (1) Acute kidney injury superimposed on CKD: Status: Acute (2) DVT (deep venous thrombosis): Status: Acute Plan 76yo F diagnosed with extensive LLE DVT at [facility] 06/01/21, presented here with LLE swelling after signing out AMA from STR, found to be anemic....INR 2.4 today Extensive left lower extremity DVT failed Eliquis IVC filter placed 06/19/21 Discontinue heparin gtt resume warfarin 3 mg and follow INR Acute/chronic anemia related to CKD stage IV, transfused 2u pRBCs 06/16/21 with appropriate response in Hb CKD 4 SCr at baseline oral bicarbonate follow renals/divalents HTN fair control difficult to manage(compliance) DM2 control given limited treatment options continue glipizide physical deconditioning PT: STR recommended, seeking placement options Patient requires continued hospitalization for the following reasons: Monitoring INR pending safe discharge plan and STR placement Quality Stroke Does the patient have a stroke diagnosis?: No VTE Prior VTE?: Yes VTE Risk Level:: Medical - moderate - high VTE Device Contraindication: Treatment Not Indicated VTE Drug Contraindication: N/A - Med Ordered
--- NOTE | 2021-06-30 10:43 | MHC.CM.PN ---
Addendum entered by Cynthia Coello 07/02/21 08:28: CM RECEIVED A RETURN CALL FROM PTS DAUGHTER, MONICA. MONICA REPORTS SHE IS AWARE THE PT DOES NOT WANT TO GO TO LTC. SHE REPORTS THE HOPE IS THAT SHE WILL BE ABLE TO RETURN HOME WITH SERVICES FOLLOWING STR. Original Note: PT REPORTING SHE DOES NOT WANT TO GO TO LTC PT REPORTS SHE WOULD LIKE TO GO HOME OR STR PER REFERRALS, STR WAS THE PLAN WITH POSSIBLE TRANSITION TO LTC CM ATTEMPTED TO CONTACT PTS DAUGHTER/HCP, MONICA [phone] TO DISCUSS DC PLANNING VM MESSAGE LEFT REQUESTING RETURN CALL
[2021-06-30 11:13] VITALS: BP 161/69; PULSE 81; RESP 18; TEMP 36.3; O2SAT 98
[2021-06-30] MEDS: Phenazopyridine HCL 100 MG TABLET PO ×2 (11:31→17:13)
[2021-06-30 15:16] VITALS: BP 169/76; PULSE 86; RESP 20; TEMP 36.6; O2SAT 98
[2021-06-30 16:05] LABS: Appearance Urine CLOUDY; Color Urine YELLOW; Glucose Urine UA NEG (NEG); Leukocyte Esterase Urine 3+ (NEG); Nitrite Urine NEG (NEG); PH 5.5 (5.0-8.0); UACC Culture Trigger YES; Urine Blood 3+ (NEG); Urine Ketones NEG (NEG); Urine Protein 2+ MG/DL (NEG-TRACE)
[2021-06-30 16:14] LABS: Bacteria Urine 2+ /LPF; Mucus Urine TRACE /LPF; Squamous Epithelial Cell Urine TRACE /LPF; WBC Urine TNTC /HPF (0-4)
[2021-06-30] MEDS: Warfarin Sodium 3 MG TABLET PO (17:16)
[2021-06-30 19:23] VITALS: BP 170/60; PULSE 91; RESP 20; TEMP 38.6; O2SAT 97
[2021-07-01] VITALS: BP 168/72; PULSE 87; RESP 18; TEMP 36.7; O2SAT 97
[2021-07-01 03:21] VITALS: BP 154/67; PULSE 82; RESP 18; TEMP 36.4; O2SAT 98
[2021-07-01 06:45] LABS: Hematocrit 27.8 % (37.0-47.0); Hemoglobin 8.7 g/dl (12.0-16.0); Mean Corpuscular HGB Conc 31.3 g/dl (31.0-35.0); Mean Corpuscular Hemoglobin 28.7 pg (27.0-33.0); Mean Corpuscular Volume 91.7 fL (80.0-98.0); Mean Platelet Volume 10.2 fL (9.4-12.3); Platelet Count 207 X10*3/uL (160-400); Red Blood Count 3.03 X10*6/uL (4.20-5.50); Red Cell Distribution Width 13.7 % (11.0-16.0); White Blood Count 9.1 X10*3/uL (4.8-10.8)
[2021-07-01 08:00] VITALS: BP 163/74; PULSE 76; RESP 18; TEMP 36.4; O2SAT 98
[2021-07-01] MEDS: cefTRIAXone sodium 1 GM in 0.9 % Sodium Chloride 50 ML IV (08:09)
[2021-07-01] MEDS: Metoprolol Succinate ER 50 MG TAB.ER.24H PO (08:09)
[2021-07-01] MEDS: 0.9 % Sodium Chloride Flush 3 ML SYRINGE IVFLUSH (08:10)
[2021-07-01] MEDS: Phenazopyridine HCL 100 MG TABLET PO ×3 (08:10→15:44)
[2021-07-01] MEDS: glyBURIDE 5 MG TABLET PO (08:10)
[2021-07-01] MEDS: calcitrioL 0.25 MCG CAPSULE PO (08:10)
[2021-07-01] MEDS: Cholecalciferol (Vitamin D3) 25 MCG TABLET 50 MCG PO (08:10)
[2021-07-01] MEDS: Ascorbic Acid 250 MG TABLET PO (08:11)
[2021-07-01] MEDS: Atropine Sulfate 1 % Ophth Sol 2 ML BOTTLE 1 DROP EYE-LEFT ×2 (08:11→15:44)
[2021-07-01] MEDS: timoloL maleate XE 0.5 % Gel 5 ML DRBTL 1 DROP EYE-RIGHT (08:11)
[2021-07-01] MEDS: prednisoLONE Acetate 1 % Oph Susp 5 ML DRPBTL 1 DROP EYE-BOTH (08:11)
[2021-07-01] MEDS: Ferrous Sulfate 324 MG TABLET.DR PO (08:11)
[2021-07-01] MEDS: amLODIPine Besylate 10 MG TABLET PO (08:11)
[2021-07-01] MEDS: Fluticasone Propionate Nasal 16 GM SPRAY 1 SPRAY NOSTRIL-B (08:11)
[2021-07-01 09:22] LABS: Anion Gap 14 (12-20); Blood Urea Nitrogen 85 mg/dL (9-16); Calcium 8.4 mg/dL (8.4-10.2); Carbon Dioxide 16 mmol/L (22-29); Chloride 113 mmol/L (96-108); Creatinine Clr Calc Pharmacy 12.1; Estimated Glomerular Filt Rate 11; Glucose Random 140 mg/dL (60-115); Potassium 4.2 mmol/L (3.3-5.1); Sodium 139 mmol/L (135-145)
--- NOTE | 2021-07-01 10:52 | P.PNIM_ITS ---
Subjective Subjective Date of Service: 07/01/21 Interval History: the patient was seen and evaluated this morning Laying in bed, feels comfortable Reports burning urination Hemoglobin stable, INR pending No reported other overnight events. Systemic review: No fever, chills or weakness No chest pain, palpitation No shortness of breath or coughing No abdominal pain, nausea or vomiting No urinary symptoms No any rash or wounds Physical Exam Vital Signs: Vital Signs: Last Vital Signs Temp 97.6 F 07/01/21 08:00 Pulse 76 07/01/21 08:00 Resp 18 07/01/21 08:00 BP 163/74 H 07/01/21 08:00 Pulse Ox 98 07/01/21 08:00 BMI result Body Mass Index 25.7 Const: Other: Constitutional : interactive, blind,not in distress Neck : Normal inspection, Supple Cardiovascular : RRR, no JVP, no lower extremity edema Respiratory : fair bilateral air entry, no crackles, wheezes or rhonchi Gastrointestinal: soft, lax, Normal bowel sounds, Non tender Skin : Warm, Dry Neurological : Alert & oriented x3, No focal deficit , CN 2-12 within normal Objective Data Active Medications Acetaminophen (Acetaminophen 325 Mg Tablet) 650 mg PO Q6H PRN PRN Reason: Pain, Mild (Pain Scale 1-3) Last Admin: 06/28/21 11:02 Dose: 650 mg Documented by: SANJUANITA Amlodipine Besylate (Amlodipine Besylate 10 Mg Tablet) 10 mg PO DAILY [facility]; Protocol Last Admin: 07/01/21 08:11 Dose: 10 mg Documented by: BRITNEY Ascorbic Acid (Ascorbic Acid 250 Mg Tablet) 250 mg PO DAILY [facility] Last Admin: 07/01/21 08:11 Dose: 250 mg Documented by: BRITNEY Atorvastatin Calcium (Atorvastatin Calcium 80 Mg Tablet) 80 mg PO BEDTIME [facility] Last Admin: 06/30/21 20:12 Dose: Not Given Documented by: HEBER Non-Admin Reason: Patient Refused Atropine Sulfate (Atropine Sulfate 1 % Oph Jacki 2 Ml Bottle) 1 drop EYE-LEFT TID [facility] Last Admin: 07/01/21 08:11 Dose: 1 drop Documented by: BRITNEY Calcitriol (Calcitriol 0.25 Mcg Capsule) 0.25 mcg PO DAILY [facility] Last Admin: 07/01/21 08:10 Dose: 0.25 mcg Documented by: BRITNEY Cefuroxime Axetil (Cefuroxime Axetil 250 Mg Tablet) 250 mg PO Q12H [facility] Ferrous Sulfate (Ferrous Sulfate 324 Mg Tablet.Dr) 324 mg PO DAILY [facility] Last Admin: 07/01/21 08:11 Dose: 324 mg Documented by: BRITNEY Fluticasone Propionate (Fluticasone Propionate Nasal 16 Gm [place]) 1 spray NOSTRIL-B DAILY [facility] Last Admin: 07/01/21 08:11 Dose: 1 spray Documented by: BRITNEY Glyburide (Glyburide 5 Mg Tablet) 5 mg PO DAILY [facility] Last Admin: 07/01/21 08:10 Dose: 5 mg Documented by: BRITNEY Metoprolol Succinate (Metoprolol Succinate Er 50 Mg Tab.Er.24h) 50 mg PO DAILY [facility]; Protocol Last Admin: 07/01/21 08:09 Dose: 50 mg Documented by: BRITNEY Pharmacy Consult (Consult Rx Perform Med Rec) 1 each MISCELLANE ONCE PRN PRN Reason: Consult order Pharmacy Consult (Consult Rx Perform Med Rec) 1 each MISCELLANE ONCE PRN PRN Reason: Consult order Phenazopyridine HCl (Phenazopyridine Hcl 100 Mg Tablet) 100 mg PO TIDWM [facility] Stop: 07/02/21 08:01 Last Admin: 07/01/21 08:10 Dose: 100 mg Documented by: BRITNEY Prednisolone Acetate (Prednisolone Acetate 1 % Oph Susp 5 Ml Drpbtl) 1 drop EYE-BOTH DAILY [facility] Last Admin: 07/01/21 08:11 Dose: 1 drop Documented by: BRITNEY Sodium Bicarbonate (Sodium Bicarbonate 650 Mg Tablet) 650 mg PO BID [facility] Last Admin: 07/01/21 08:12 Dose: Not Given Documented by: BRITNEY Non-Admin Reason: Patient Refused Sodium Chloride (0.9 % Sodium Chloride Flush 3 Ml Syringe) 3 ml IVFLUSH QSHIFT [facility] Last Admin: 07/01/21 08:10 Dose: 3 ml Documented by: BRITNEY Timolol Maleate (Timolol Maleate Xe 0.5 % Gel 5 Ml Drbtl) 1 drop EYE-RIGHT DAILY [facility] Last Admin: 07/01/21 08:11 Dose: 1 drop Documented by: BRITNEY Vitamin D (Cholecalciferol (Vitamin D3) 25 Mcg Tablet) 50 mcg PO DAILY [facility] Last Admin: 07/01/21 08:10 Dose: 50 mcg Documented by: BRITNEY Warfarin Sodium (Warfarin Sodium 2.5 Mg Tablet) 2.5 mg PO DAILY@1800 [facility] Labs CBC & Chem 7: 07/01/21 06:33 07/01/21 05:00 Labs: Laboratory Results - last 24 hr 06/30/21 07/01/21 07/01/21 15:43 05:00 06:33 MCV 91.7 MCH 28.7 MCHC 31.3 RDW 13.7 Plt Count 207 MPV 10.2 Absolute Nucleated RBC 0.000 Nucleated RBC % (auto) 0.0 Anion Gap 14 Estim Creat Clear Calc 12.1 Estimated GFR 11 Random Glucose 140 H Calcium 8.4 Urine Color YELLOW Urine Appearance CLOUDY Urine pH 5.5 Ur Specific [place] 1.020 Urine Protein 2+ H Urine Glucose (UA) NEG Urine Ketones NEG Urine Blood 3+ H Urine Nitrite NEG Ur Leukocyte Esterase 3+ H Urine RBC 1-4 Urine WBC TNTC H Ur Squamous Epith Cells TRACE Urine Bacteria 2+ Urine Mucus TRACE Assessment and Plan (1) Acute kidney injury superimposed on CKD: Status: Acute (2) DVT (deep venous thrombosis): Status: Acute (3) UTI (urinary tract infection): Status: Acute Plan 76yo F diagnosed with extensive LLE DVT at [facility] 06/01/21, presented here with LLE swelling after signing out AMA from STR, found to be anemic....INR 2.4 today UTI pending final culture Start Ceftin p.o. Renally adjusted dose Extensive left lower extremity DVT failed Eliquis IVC filter placed 06/19/21 Discontinue heparin gtt Decrease warfarin to 2 mg and follow INR Acute/chronic anemia related to CKD stage IV, transfused 2u pRBCs 06/16/21 with appropriate response in Hb CKD 4 SCr at baseline oral bicarbonate follow renals/divalents HTN fair control difficult to manage(compliance) DM2 control given limited treatment options continue glipizide physical deconditioning PT: STR recommended, seeking placement options Patient requires continued hospitalization for the following reasons: Monitoring INR pending safe discharge plan and STR placement Quality Stroke Does the patient have a stroke diagnosis?: No VTE Prior VTE?: Yes VTE Risk Level:: Medical - moderate - high VTE Device Contraindication: Treatment Not Indicated VTE Drug Contraindication: N/A - Med Ordered
[2021-07-01 11:40] LABS: INTERNATIONAL NORM RATIO 2.9 (0.9-1.1); Prothrombin Time 34.1 SEC (9.9-13.0)
[2021-07-01 12:00] VITALS: BP 165/72; PULSE 74; RESP 18; TEMP 37.1; O2SAT 97
[2021-07-01 15:01] VITALS: BP 167/76; PULSE 78; RESP 18; TEMP 36.6; O2SAT 97
[2021-07-01] MEDS: Warfarin Sodium 2.5 MG TABLET PO (17:03)
[2021-07-01 20:00] VITALS: BP 168/72; PULSE 78; RESP 18; TEMP 36.7; O2SAT 98
[2021-07-02] VITALS (8 sets, daily range): BP systolic 156–189; BP diastolic 56–79; PULSE 75–82; RESP 16–19; TEMP 36.4–37.2; O2SAT 95–97
[2021-07-02] MEDS: Acetaminophen 325 MG TABLET 650 MG PO ×2 (01:44→23:06)
--- NOTE | 2021-07-02 09:59 | P.PNIM_ITS ---
Subjective Subjective Date of Service: 07/02/21 Interval History: the patient was seen and evaluated this morning Laying in bed, feels comfortable improved burning urination creatinine increased over the weekend Hemoglobin stable, INR 2.9 No reported other overnight events. Systemic review: No fever, chills or weakness No chest pain, palpitation No shortness of breath or coughing No abdominal pain, nausea or vomiting No urinary symptoms No any rash or wounds Physical Exam Vital Signs: Vital Signs: Last Vital Signs Temp 97.5 F 07/02/21 07:14 Pulse 79 07/02/21 07:14 Resp 18 07/02/21 07:14 BP 156/69 H 07/02/21 07:14 Pulse Ox 97 07/02/21 07:14 BMI result Body Mass Index 25.7 Const: Other: Constitutional : interactive, blind,not in distress Neck : Normal inspection, Supple Cardiovascular : RRR, no JVP, no lower extremity edema Respiratory : fair bilateral air entry, no crackles, wheezes or rhonchi Gastrointestinal: soft, lax, Normal bowel sounds, Non tender Skin : Warm, Dry Neurological : Alert & oriented x3, No focal deficit , CN 2-12 within normal Objective Data Active Medications Acetaminophen (Acetaminophen 325 Mg Tablet) 650 mg PO Q6H PRN PRN Reason: Pain, Mild (Pain Scale 1-3) Last Admin: 07/02/21 01:44 Dose: 650 mg Documented by: HEBER Amlodipine Besylate (Amlodipine Besylate 10 Mg Tablet) 10 mg PO DAILY [facility]; Protocol Last Admin: 07/01/21 08:11 Dose: 10 mg Documented by: BRITNEY Ascorbic Acid (Ascorbic Acid 250 Mg Tablet) 250 mg PO DAILY [facility] Last Admin: 07/01/21 08:11 Dose: 250 mg Documented by: BRITNEY Atorvastatin Calcium (Atorvastatin Calcium 80 Mg Tablet) 80 mg PO BEDTIME [facility] Last Admin: 07/01/21 21:46 Dose: Not Given Documented by: HEBER Non-Admin Reason: Patient Refused Atropine Sulfate (Atropine Sulfate 1 % Ophth Jacki 2 Ml Bottle) 1 drop EYE-LEFT TID [facility] Last Admin: 07/01/21 21:47 Dose: Not Given Documented by: HEBER Non-Admin Reason: Patient Refused Calcitriol (Calcitriol 0.25 Mcg Capsule) 0.25 mcg PO DAILY [facility] Last Admin: 07/01/21 08:10 Dose: 0.25 mcg Documented by: BRITNEY Ferrous Sulfate (Ferrous Sulfate 324 Mg Tablet.Dr) 324 mg PO DAILY [facility] Last Admin: 07/01/21 08:11 Dose: 324 mg Documented by: BRITNEY Fluticasone Propionate (Fluticasone Propionate Nasal 16 Gm [place]) 1 spray NOSTRIL-B DAILY [facility] Last Admin: 07/01/21 08:11 Dose: 1 spray Documented by: BRITNEY Glyburide (Glyburide 5 Mg Tablet) 5 mg PO DAILY [facility] Last Admin: 07/01/21 08:10 Dose: 5 mg Documented by: BRITNEY Ceftriaxone Sodium 1 gm/ (Sodium Chloride) 50 mls @ 100 mls/hr IV Q24H [facility] Lactated Ringer's (Lr) 1,000 mls @ 80 mls/hr IVCONT .[id number] [facility] Metoprolol Succinate (Metoprolol Succinate Er 50 Mg Tab.Er.24h) 50 mg PO DAILY [facility]; Protocol Last Admin: 07/01/21 08:09 Dose: 50 mg Documented by: BRITNEY Pharmacy Consult (Consult Rx Perform Med Rec) 1 each MISCELLANE ONCE PRN PRN Reason: Consult order Pharmacy Consult (Consult Rx Perform Med Rec) 1 each MISCELLANE ONCE PRN PRN Reason: Consult order Prednisolone Acetate (Prednisolone Acetate 1 % Oph Susp 5 Ml Drpbtl) 1 drop EYE-BOTH DAILY [facility] Last Admin: 07/01/21 08:11 Dose: 1 drop Documented by: BRITNEY Sodium Bicarbonate (Sodium Bicarbonate 650 Mg Tablet) 650 mg PO BID [facility] Last Admin: 07/01/21 21:47 Dose: Not Given Documented by: HEBER Non-Admin Reason: Patient Refused Sodium Chloride (0.9 % Sodium Chloride Flush 3 Ml Syringe) 3 ml IVFLUSH QSHIFT [facility] Last Admin: 07/01/21 21:47 Dose: Not Given Documented by: HEBER Non-Admin Reason: No Access Timolol Maleate (Timolol Maleate Xe 0.5 % Gel 5 Ml Drbtl) 1 drop EYE-RIGHT DAILY [facility] Last Admin: 07/01/21 08:11 Dose: 1 drop Documented by: BRITNEY Vitamin D (Cholecalciferol (Vitamin D3) 25 Mcg Tablet) 50 mcg PO DAILY [facility] Last Admin: 07/01/21 08:10 Dose: 50 mcg Documented by: BRITNEY Warfarin Sodium (Warfarin Sodium 2 Mg Tablet) 2 mg PO DAILY@1800 [facility] Labs CBC & Chem 7: 07/01/21 06:33 07/01/21 05:00 Labs: Laboratory Results - last 24 hr 07/01/21 06:40 PT 34.1 H INR 2.9 H Microbiology Microbiology Results: Microbiology 06/30/21 16:09 Urine Culture - Final Urine clean catch - Clean Catch Midstream Assessment and Plan (1) UTI (urinary tract infection): Status: Acute (2) Acute kidney injury superimposed on CKD: Status: Acute Plan 76yo F diagnosed with extensive LLE DVT at [facility] 06/01/21, presented here with LLE swelling after signing out AMA from STR, found to be anemic....INR 2.4 today UTI mixed bacteria in urine final culture Continue ceftriaxone Extensive left lower extremity DVT failed Eliquis IVC filter placed 06/19/21 Discontinue heparin gtt Decrease warfarin to 2 mg and follow INR Acute/chronic anemia related to CKD stage IV, transfused 2u pRBCs 06/16/21 with appropriate response in Hb worsening CKD 4, metabolic acidosis SCr increased to 4.1 , BUN increased to 85 bicarb at 16 increase oral bicarbonate nephrology to evaluate Start gentle hydration and increase p.o. intake HTN fair control difficult to manage(compliance) DM2 control given limited treatment options continue glipizide physical deconditioning PT: STR recommended, seeking placement options Patient requires continued hospitalization for the following reasons: worsening kidney function safe discharge plan and STR placement Quality Stroke Does the patient have a stroke diagnosis?: No VTE Prior VTE?: Yes VTE Risk Level:: Medical - moderate - high VTE Device Contraindication: Treatment Not Indicated VTE Drug Contraindication: N/A - Med Ordered
[2021-07-02] MEDS: Phenazopyridine HCL 100 MG TABLET PO (10:16)
[2021-07-02] MEDS: Metoprolol Succinate ER 50 MG TAB.ER.24H PO (10:17)
[2021-07-02] MEDS: glyBURIDE 5 MG TABLET PO (10:18)
[2021-07-02] MEDS: amLODIPine Besylate 10 MG TABLET PO (10:18)
[2021-07-02] MEDS: Cholecalciferol (Vitamin D3) 25 MCG TABLET 50 MCG PO (10:21)
[2021-07-02] MEDS: calcitrioL 0.25 MCG CAPSULE PO (10:21)
[2021-07-02] MEDS: Ascorbic Acid 250 MG TABLET PO (10:21)
[2021-07-02] MEDS: Ferrous Sulfate 324 MG TABLET.DR PO (10:22)
[2021-07-02] MEDS: prednisoLONE Acetate 1 % Oph Susp 5 ML DRPBTL 1 DROP EYE-BOTH (10:25)
[2021-07-02] MEDS: Atropine Sulfate 1 % Ophth Sol 2 ML BOTTLE 1 DROP EYE-LEFT ×3 (10:25→23:06)
[2021-07-02] MEDS: timoloL maleate XE 0.5 % Gel 5 ML DRBTL 1 DROP EYE-RIGHT (10:27)
[2021-07-02] MEDS: Fluticasone Propionate Nasal 16 GM SPRAY 1 SPRAY NOSTRIL-B (10:28)
[2021-07-02] MEDS: Lactated Ringers 1,000 ML 80 ML IVCONT ×2 (10:39→23:06)
[2021-07-02] MEDS: 0.9 % Sodium Chloride Flush 3 ML SYRINGE IVFLUSH (10:39)
[2021-07-02] MEDS: cefTRIAXone sodium 1 GM in 0.9 % Sodium Chloride 50 ML IV (10:39)
--- NOTE | 2021-07-02 11:40 | MHC.CLN ---
F/U PATIENT WITH STAGE II WOUNDS TO BILATERAL BUTTOCKS, DIET=REGULAR WITH ENSURE CLEAR TID. REFUSES THERAPEUTIC DIET FOR DM/CKD. LIKES ENSURE CLEAR. SUPPLEMENT PROVIDES ADDITIONAL 720 KCALS, 24 G PROTEIN. CONTINUE SUPPLEMENT TO PROMOTE WOUND HEALING. MD AWARE OF ELEVATED BUN/Cr. INTAKE APPEARS TO BE USUALLY GOOD WITH AVERAGE 75% AT MEALS. FOLLOW LABS, INTAKE, WOUNDS.
[2021-07-02 12:35] LABS: INTERNATIONAL NORM RATIO 2.7 (0.9-1.1); Prothrombin Time 31.9 SEC (9.9-13.0)
--- NOTE | 2021-07-02 15:34 | PM.PNNEP ---
Subjective Subjective Date of Service: 07/02/21 Interval history: Chart Reviewed. Events noted. Physical Exam Vital Signs: Vital Signs: Last Vital Signs Temp 98.6 F 07/02/21 15:06 Pulse 80 07/02/21 15:06 Resp 18 07/02/21 15:06 BP 158/74 H 07/02/21 15:06 Pulse Ox 96 07/02/21 15:06 BMI result Body Mass Index 25.7 Const: General: cooperative and no acute distress Orientation/consciousness: patient oriented x3 HEENT: Head: Yes normocephalic and Yes atraumatic Neck: Neck: Yes no JVD Resp: Auscultation: clear to auscultation bilaterally Cardio: Jugular venous distension: no JVD Rate: regular rate Rhythm: regular rhythm Heart sounds: S1 normal heart sound present and S2 normal heart sound present GI: Auscultation: normal bowel sounds Neuro: General: patient oriented x3 Extrem: General: Yes no clubbing, cyanosis or edema Objective Data Labs CBC & Chem 7: 07/01/21 06:33 07/01/21 05:00 Labs: Laboratory Results - last 24 hr 07/02/21 12:22 PT 31.9 H INR 2.7 H Microbiology Microbiology Results: Microbiology 06/30/21 16:09 Urine clean catch - Clean Catch Midstream Urine Culture - Final Procedures Date of Service Date of Service: 07/02/21 Assessment & Plan Assessment and plan (1) Acute kidney injury superimposed on CKD: Status: Acute (2) CKD (chronic kidney disease) stage 4, GFR 15-29 ml/min: Status: Acute Plan Known severe CKD due to HTN/DM Baseline Scr ~ 3 mg/dl Renal function uptrended over weekend. Has metabolic acidosis - On NaHCO3 I discussed potential need for [employer] in form of HD or PD and patient was adamant that she does not want dialysis. I reviewed with the patient that worsening renal function without [employer] could result in and she stated that she understood this. She remained confident that she does not want dialysis. Consider GOC discussion with patient/family. Update MOLST. Continue rest of current supportive care for now Time Spent With Patient Time: Total time spent is greater than 50% in coordination of care (as documented) at patient's floor/unit and/or counseling patient: Progress Note: Quality Stroke Does the patient have a stroke diagnosis?: No
[2021-07-02] MEDS: Warfarin Sodium 2 MG TABLET PO (17:38)
[2021-07-03 03:18] VITALS: BP 168/64; PULSE 76; RESP 18; TEMP 37; O2SAT 98
[2021-07-03 06:42] LABS: Anion Gap 16 (12-20); Blood Urea Nitrogen 87 mg/dL (9-16); Calcium 8.5 mg/dL (8.4-10.2); Carbon Dioxide 13 mmol/L (22-29); Chloride 113 mmol/L (96-108); Creatinine Clr Calc Pharmacy 12.5; Estimated Glomerular Filt Rate 11; Glucose Random 179 mg/dL (60-115); Potassium 4.1 mmol/L (3.3-5.1); Sodium 138 mmol/L (135-145)
[2021-07-03 06:56] LABS: INTERNATIONAL NORM RATIO 2.6 (0.9-1.1); Prothrombin Time 29.9 SEC (9.9-13.0)
[2021-07-03 07:40] VITALS: BP 159/72; PULSE 79; RESP 17; TEMP 38.1; O2SAT 97
[2021-07-03] MEDS: Metoprolol Succinate ER 50 MG TAB.ER.24H PO (10:15)
[2021-07-03] MEDS: amLODIPine Besylate 10 MG TABLET PO (10:15)
[2021-07-03] MEDS: glyBURIDE 5 MG TABLET PO (10:15)
[2021-07-03] MEDS: Ferrous Sulfate 324 MG TABLET.DR PO (10:16)
[2021-07-03] MEDS: Ascorbic Acid 250 MG TABLET PO (10:18)
[2021-07-03] MEDS: calcitrioL 0.25 MCG CAPSULE PO (10:18)
[2021-07-03] MEDS: Cholecalciferol (Vitamin D3) 25 MCG TABLET 50 MCG PO (10:18)
[2021-07-03] MEDS: Atropine Sulfate 1 % Ophth Sol 2 ML BOTTLE 1 DROP EYE-LEFT ×3 (10:20→20:51)
[2021-07-03] MEDS: prednisoLONE Acetate 1 % Oph Susp 5 ML DRPBTL 1 DROP EYE-BOTH (10:20)
[2021-07-03] MEDS: timoloL maleate XE 0.5 % Gel 5 ML DRBTL 1 DROP EYE-RIGHT (10:22)
[2021-07-03] MEDS: Fluticasone Propionate Nasal 16 GM SPRAY 1 SPRAY NOSTRIL-B (10:23)
[2021-07-03 11:37] VITALS: BP 169/81; PULSE 78; RESP 17; TEMP 37.2; O2SAT 95
--- NOTE | 2021-07-03 13:13 | MHC.CM.PN ---
NURSE SALES AND MARKETING ENGINEER [facility] UNABLE TO TAKE PATIENT SHE IN NOT COVID VACINATED AND THEY HAVE NO BED AVAILABILITY FOR UNVACINATED PATIENTS , RESENT CLINICALS THROUGH ALLSCRIPTS TO PREVIOUS REFFERALS , DISCHARGE PLAN STR THEN PT FAMILY WANT HER TO GO HOME ( RENAL DOCOTOR TO SPEAK WITH PATIENT AND FAMILY ) SALES AND MARKETING ENGINEER TO CONTINUE TO FOLLOW PATIENT IS [place] SHE DOES NTO WANT [facility] , SHE WANTS TO RECIVE PHYSICAL THERAPY
--- NOTE | 2021-07-03 13:59 | P.PNIM_ITS ---
Subjective Subjective Date of Service: 07/03/21 Interval History: the patient was seen and evaluated this morning Laying in bed, feels comfortable Resolved burning urination CO2 decreased to 13 refusing sodium bicarbonate p.o. or IV for now, refusing dialysis No reported other overnight events. Systemic review: No fever, chills or weakness No chest pain, palpitation No shortness of breath or coughing No abdominal pain, nausea or vomiting No urinary symptoms No any rash or wounds Physical Exam Vital Signs: Vital Signs: Last Vital Signs Temp 98.9 F 07/03/21 11:37 Pulse 78 07/03/21 11:37 Resp 17 07/03/21 11:37 BP 169/81 H 07/03/21 11:37 Pulse Ox 95 07/03/21 11:37 BMI result Body Mass Index 25.7 Const: Other: Constitutional : interactive, blind,not in distress Neck : Normal inspection, Supple Cardiovascular : RRR, no JVP, no lower extremity edema Respiratory : fair bilateral air entry, no crackles, wheezes or rhonchi Gastrointestinal: soft, lax, Normal bowel sounds, Non tender Skin : Warm, Dry Neurological : Alert & oriented x3, No focal deficit , CN 2-12 within normal Objective Data Active Medications Acetaminophen (Acetaminophen 325 Mg Tablet) 650 mg PO Q6H PRN PRN Reason: Pain, Mild (Pain Scale 1-3) Last Admin: 07/02/21 23:06 Dose: 650 mg Documented by: JOSE Amlodipine Besylate (Amlodipine Besylate 10 Mg Tablet) 10 mg PO DAILY [facility]; Protocol Last Admin: 07/03/21 10:15 Dose: 10 mg Documented by: SUSAN Ascorbic Acid (Ascorbic Acid 250 Mg Tablet) 250 mg PO DAILY [facility] Last Admin: 07/03/21 10:18 Dose: 250 mg Documented by: SUSAN Atorvastatin Calcium (Atorvastatin Calcium 80 Mg Tablet) 80 mg PO BEDTIME [facility] Last Admin: 07/02/21 23:07 Dose: Not Given Documented by: JOSE Non-Admin Reason: Patient Refused Atropine Sulfate (Atropine Sulfate 1 % Oph Jacki 2 Ml Bottle) 1 drop EYE-LEFT TID [facility] Last Admin: 07/03/21 10:20 Dose: 1 drop Documented by: SUSAN Calcitriol (Calcitriol 0.25 Mcg Capsule) 0.25 mcg PO DAILY [facility] Last Admin: 07/03/21 10:18 Dose: 0.25 mcg Documented by: SUSAN Ferrous Sulfate (Ferrous Sulfate 324 Mg Tablet.Dr) 324 mg PO DAILY [facility] Last Admin: 07/03/21 10:16 Dose: 324 mg Documented by: SUSAN Fluticasone Propionate (Fluticasone Propionate Nasal 16 Gm [place]) 1 spray NOSTRIL-B DAILY [facility] Last Admin: 07/03/21 10:23 Dose: 1 spray Documented by: SUSAN Glyburide (Glyburide 5 Mg Tablet) 5 mg PO DAILY [facility] Last Admin: 07/03/21 10:15 Dose: 5 mg Documented by: SUSAN Sodium Bicarbonate 50 meq/ (Dextrose) 1,000 mls @ 150 mls/hr IV .Q6H40M [facility] Stop: 07/03/21 20:00 Last Admin: 07/03/21 10:19 Dose: Not Given Documented by: SUSAN Non-Admin Reason: Patient Refused Metoprolol Succinate (Metoprolol Succinate Er 50 Mg Tab.Er.24h) 50 mg PO DAILY [facility]; Protocol Last Admin: 07/03/21 10:15 Dose: 50 mg Documented by: SUSAN Pharmacy Consult (Consult Rx Perform Med Rec) 1 each MISCELLANE ONCE PRN PRN Reason: Consult order Pharmacy Consult (Consult Rx Perform Med Rec) 1 each MISCELLANE ONCE PRN PRN Reason: Consult order Prednisolone Acetate (Prednisolone Acetate 1 % Oph Susp 5 Ml Drpbtl) 1 drop EYE-BOTH DAILY [facility] Last Admin: 07/03/21 10:20 Dose: 1 drop Documented by: SUSAN Sodium Bicarbonate (Sodium Bicarbonate 650 Mg Tablet) 650 mg PO BID [facility] Last Admin: 07/03/21 10:17 Dose: Not Given Documented by: SUSAN Non-Admin Reason: Patient Refused Sodium Chloride (0.9 % Sodium Chloride Flush 3 Ml Syringe) 3 ml IVFLUSH QSHIFT [facility] Last Admin: 07/03/21 10:19 Dose: Not Given Documented by: SUSAN Non-Admin Reason: IV Running Timolol Maleate (Timolol Maleate Xe 0.5 % Gel 5 Ml Drbtl) 1 drop EYE-RIGHT DAILY [facility] Last Admin: 07/03/21 10:22 Dose: 1 drop Documented by: SUSAN Vitamin D (Cholecalciferol (Vitamin D3) 25 Mcg Tablet) 50 mcg PO DAILY [facility] Last Admin: 07/03/21 10:18 Dose: 50 mcg Documented by: SUSAN Warfarin Sodium (Warfarin Sodium 2 Mg Tablet) 2 mg PO DAILY@1800 [facility] Last Admin: 07/02/21 17:38 Dose: 2 mg Documented by: SUSAN Labs CBC & Chem 7: 07/01/21 06:33 07/03/21 06:00 Labs: Laboratory Results - last 24 hr 07/03/21 07/03/21 06:00 06:00 PT 29.9 H INR 2.6 H Anion Gap 16 Estim Creat Clear Calc 12.5 Estimated GFR 11 Random Glucose 179 H Calcium 8.5 Assessment and Plan (1) Acute kidney injury superimposed on CKD: Status: Acute (2) UTI (urinary tract infection): Status: Acute (3) Type 2 diabetes mellitus: Status: Acute Plan 76yo F diagnosed with extensive LLE DVT at [facility] 06/01/21, presented here with LLE swelling after signing out AMA from STR, found to be anemic....INR 2.4 today UTI mixed bacteria in urine final culture Continue ceftriaxone day 3 Extensive left lower extremity DVT failed Eliquis IVC filter placed 06/19/21 Discontinue heparin gtt Decrease warfarin to 2 mg and follow INR Acute/chronic anemia related to CKD stage IV, transfused 2u pRBCs 06/16/21 with appropriate response in Hb worsening CKD 4, metabolic acidosis SCr increased to 4 , BUN increased to 87 bicarb dropped to 13 refusing IV and oral bicarbonate nephrology input appreciated, patient refusing dialysis on gentle hydration advises to increase p.o. intake HTN fair control difficult to manage(compliance) DM2 control given limited treatment options continue glipizide physical deconditioning PT: STR recommended, seeking placement options Patient requires continued hospitalization for the following reasons: worsening kidney function safe discharge plan and STR placement Quality Stroke Does the patient have a stroke diagnosis?: No VTE Prior VTE?: Yes VTE Risk Level:: Medical - moderate - high VTE Device Contraindication: Treatment Not Indicated VTE Drug Contraindication: N/A - Med Ordered
[2021-07-03 15:04] LABS: Anion Gap 12 (12-20); Blood Urea Nitrogen 85 mg/dL (9-16); Calcium 8.1 mg/dL (8.4-10.2); Carbon Dioxide 16 mmol/L (22-29); Chloride 115 mmol/L (96-108); Creatinine Clr Calc Pharmacy 12.3; Estimated Glomerular Filt Rate 11; Glucose Random 243 mg/dL (60-115); Potassium 4.1 mmol/L (3.3-5.1); Sodium 139 mmol/L (135-145)
[2021-07-03 16:00] VITALS: BP 158/70; PULSE 76; RESP 18; TEMP 36.6; O2SAT 98
[2021-07-03] MEDS: Acetaminophen 325 MG TABLET 650 MG PO (17:29)
[2021-07-03] MEDS: Warfarin Sodium 2 MG TABLET PO (17:30)
[2021-07-03 20:00] VITALS: BP 155/70; PULSE 82; RESP 18; TEMP 36.9; O2SAT 97
[2021-07-03 20:25] VITALS: BP 137/64; PULSE 82; RESP 18; TEMP 36.6; O2SAT 97
[2021-07-03] MEDS: 0.9 % Sodium Chloride Flush 3 ML SYRINGE IVFLUSH (20:52)
[2021-07-04] VITALS (7 sets, daily range): BP systolic 135–178; BP diastolic 62–77; PULSE 65–87; RESP 17–18; TEMP 36.1–37.6; O2SAT 95–97
[2021-07-04] MEDS: 0.9 % Sodium Chloride Flush 3 ML SYRINGE IVFLUSH ×2 (09:59→15:40)
[2021-07-04] MEDS: Cholecalciferol (Vitamin D3) 25 MCG TABLET 50 MCG PO (10:00)
[2021-07-04] MEDS: amLODIPine Besylate 10 MG TABLET PO (10:00)
[2021-07-04] MEDS: Metoprolol Succinate ER 50 MG TAB.ER.24H PO (10:01)
[2021-07-04] MEDS: Ascorbic Acid 250 MG TABLET PO (10:01)
[2021-07-04] MEDS: Ferrous Sulfate 324 MG TABLET.DR PO (10:01)
[2021-07-04] MEDS: glyBURIDE 5 MG TABLET 2.5 MG PO (10:01)
[2021-07-04] MEDS: calcitrioL 0.25 MCG CAPSULE PO (10:02)
[2021-07-04] MEDS: Atropine Sulfate 1 % Ophth Sol 2 ML BOTTLE 1 DROP EYE-LEFT ×2 (10:08→15:40)
[2021-07-04] MEDS: Fluticasone Propionate Nasal 16 GM SPRAY 1 SPRAY NOSTRIL-B (10:08)
[2021-07-04] MEDS: prednisoLONE Acetate 1 % Oph Susp 5 ML DRPBTL 1 DROP EYE-BOTH (10:09)
[2021-07-04] MEDS: timoloL maleate XE 0.5 % Gel 5 ML DRBTL 1 DROP EYE-RIGHT (10:15)
--- NOTE | 2021-07-04 11:31 | HO.PM.IMPN ---
Subjective Subjective Date of Service: 07/04/21 Interval History: the patient was seen and evaluated this morning Laying in bed, feels comfortable overall but mild nausea reported Refused blood work this morning No reported other overnight events. Systemic review: No fever, chills or weakness No chest pain, palpitation No shortness of breath or coughing No abdominal pain or vomiting No urinary symptoms No any rash or wounds Physical Exam Vital Signs: Vital Signs: Last Vital Signs Temp 98 F 07/04/21 11:16 Pulse 79 07/04/21 11:16 Resp 17 07/04/21 11:16 BP 178/77 H 07/04/21 11:16 Pulse Ox 96 07/04/21 11:16 BMI result Body Mass Index 25.7 Const: Other: Constitutional : interactive, blind,not in distress Neck : Normal inspection, Supple Cardiovascular : RRR, no JVP, no lower extremity edema Respiratory : fair bilateral air entry, no crackles, wheezes or rhonchi Gastrointestinal: soft, lax, Normal bowel sounds, Non tender Skin : Warm, Dry Neurological : Alert & oriented x3, No focal deficit , CN 2-12 within normal Objective Data Active Medications Acetaminophen (Acetaminophen 325 Mg Tablet) 650 mg PO Q6H PRN PRN Reason: Pain, Mild (Pain Scale 1-3) Last Admin: 07/03/21 17:29 Dose: 650 mg Documented by: SUSAN Amlodipine Besylate (Amlodipine Besylate 10 Mg Tablet) 10 mg PO DAILY [facility]; Protocol Last Admin: 07/04/21 10:00 Dose: 10 mg Documented by: BETHANY Ascorbic Acid (Ascorbic Acid 250 Mg Tablet) 250 mg PO DAILY [facility] Last Admin: 07/04/21 10:01 Dose: 250 mg Documented by: BETHANY Atorvastatin Calcium (Atorvastatin Calcium 80 Mg Tablet) 80 mg PO BEDTIME [facility] Last Admin: 07/03/21 20:52 Dose: Not Given Documented by: JOSE Non-Admin Reason: Patient Refused Atropine Sulfate (Atropine Sulfate 1 % Ophth Jacki 2 Ml Bottle) 1 drop EYE-LEFT TID [facility] Last Admin: 07/04/21 10:08 Dose: 1 drop Documented by: BETHANY Calcitriol (Calcitriol 0.25 Mcg Capsule) 0.25 mcg PO DAILY [facility] Last Admin: 07/04/21 10:02 Dose: 0.25 mcg Documented by: BETHANY Ferrous Sulfate (Ferrous Sulfate 324 Mg Tablet.Dr) 324 mg PO DAILY [facility] Last Admin: 07/04/21 10:01 Dose: 324 mg Documented by: BETHANY Fluticasone Propionate (Fluticasone Propionate Nasal [address] [place]) 1 spray NOSTRIL-B DAILY [facility] Last Admin: 07/04/21 10:08 Dose: 1 spray Documented by: BETHANY Glyburide (Glyburide 5 Mg Tablet) 2.5 mg PO DAILY [facility] Last Admin: 07/04/21 10:01 Dose: 2.5 mg Documented by: BETHANY Metoprolol Succinate (Metoprolol Succinate Er 50 Mg Tab.Er.24h) 50 mg PO DAILY [facility]; Protocol Last Admin: 07/04/21 10:01 Dose: 50 mg Documented by: BETHANY Pharmacy Consult (Consult Rx Perform Med Rec) 1 each MISCELLANE ONCE PRN PRN Reason: Consult order Pharmacy Consult (Consult Rx Perform Med Rec) 1 each MISCELLANE ONCE PRN PRN Reason: Consult order Prednisolone Acetate (Prednisolone Acetate 1 % Oph Susp 5 Ml Drpbtl) 1 drop EYE-BOTH DAILY [facility] Last Admin: 07/04/21 10:09 Dose: 1 drop Documented by: BETHANY Sodium Bicarbonate (Sodium Bicarbonate 650 Mg Tablet) 650 mg PO BID [facility] Last Admin: 07/04/21 10:03 Dose: Not Given Documented by: BETHANY Non-Admin Reason: Patient Refused Sodium Chloride (0.9 % Sodium Chloride Flush 3 Ml Syringe) 3 ml IVFLUSH QSHIFT [facility] Last Admin: 07/04/21 09:59 Dose: 3 ml Documented by: BETHANY Timolol Maleate (Timolol Maleate Xe 0.5 % Gel 5 Ml Drbtl) 1 drop EYE-RIGHT DAILY [facility] Last Admin: 07/04/21 10:15 Dose: 1 drop Documented by: BETHANY Vitamin D (Cholecalciferol (Vitamin D3) 25 Mcg Tablet) 50 mcg PO DAILY [facility] Last Admin: 07/04/21 10:00 Dose: 50 mcg Documented by: BETHANY Warfarin Sodium (Warfarin Sodium 2 Mg Tablet) 2 mg PO DAILY@1800 [facility] Last Admin: 07/03/21 17:30 Dose: 2 mg Documented by: SUSAN Labs CBC & Chem 7: 07/01/21 06:33 07/03/21 14:12 Labs: Laboratory Results - last 24 hr 07/03/21 14:12 Anion Gap 12 Estim Creat Clear Calc 12.3 Estimated GFR 11 Random Glucose 243 H Calcium 8.1 L Assessment and Plan (1) Acute kidney injury superimposed on CKD: Status: Acute (2) Metabolic acidosis: Status: Acute Plan 76yo F diagnosed with extensive LLE DVT at [facility] [place] 06/01/21, presented here with LLE swelling after signing out AMA from STR, found to be anemic....INR 2.4 today UTI mixed bacteria in urine final culture finished ceftriaxone 3 days Extensive left lower extremity DVT failed Eliquis IVC filter placed 06/19/21 Discontinue heparin gtt Decrease warfarin to 2 mg and follow INR Acute/chronic anemia related to CKD stage IV, transfused 2u pRBCs 06/16/21 with appropriate response in Hb worsening CKD 4, metabolic acidosis SCr increased to 4 , BUN increased to 85 bicarb of 16 refusing IV and oral bicarbonate nephrology input appreciated, patient refusing dialysis advises to increase p.o. intake HTN fair control difficult to manage(compliance) DM2 control given limited treatment options continue glipizide physical deconditioning PT: STR recommended, seeking placement options ACP: ?I had a chance to discuss with the patient her goals of care.? She reports that she does not want dialysis at any point not hemodialysis or even peritoneal one.? She would preferred to be full code.? Discussed CPR process and possible outcomes but she insisted she was to be a full code. Patient requires continued hospitalization for the following reasons: pending safe discharge plan and STR placement as the patient continue to refuse dialysis option. Quality Stroke Does the patient have a stroke diagnosis?: No VTE Prior VTE?: Yes VTE Risk Level:: Medical - moderate - high VTE Device Contraindication: Treatment Not Indicated VTE Drug Contraindication: N/A - Med Ordered
--- NOTE | 2021-07-04 11:44 | MHC.CLN ---
F/U PATIENT WITH STAGE II WOUNDS TO BILATERAL BUTTOCKS, DIET=REGULAR WITH ENSURE CLEAR TID. REFUSES THERAPEUTIC DIET FOR DM/CKD. LIKES ENSURE CLEAR. SUPPLEMENT PROVIDES ADDITIONAL 720 KCALS, 24 G PROTEIN. CONTINUE SUPPLEMENT TO PROMOTE WOUND HEALING. INTAKE X 3 DAYS 25-100% WITH MOST MEALS GREATER THAN OR EQUAL TO 50%. ELEVATED BUN/Cr. REFUSING DIALYSIS. FOLLOW LABS, INTAKE, WOUNDS.
--- NOTE | 2021-07-04 11:55 | MHC.CM.PN ---
CM MET W/PT TO DISCUSS DC PLAN, PT AWARE NO LOCAL FACILITIES ARE OFFERING, PT REFUSES TO GO FURTHER OUT OF AREA AND REPORTS SHE WILL GO HOME, PT DECLINES ALL VNA/PT SERVICES AND REPORTS HER DTR WILL TAKE HER TO GET [facility] FOR COUMADIN. CM DISCUSSED ISSUE OF HER REFUSING DIALYSIS W/PT AND PT IS ADAMANT SHE DOES NOT WANT DIALYSIS AND REPORTS SHE HAD A FRIEND ON DIALYSIS WHO . CM CONTACTED PT'S DTR MONICA AT 11:55AM [phone] TO DISCUSS PLAN, CM REVIEWED MULTIPLE BARRIERS TO SNF PLACEMENT AND PT'S REFUSAL TO GO FARTHER THAN LOCAL SNF'S, MONICA AGREEABLE TO PLAN FOR PT TO GO HOME AND MEET HER THERE TO ASSIST PT, MONICA ALSO REPORTS SHE CAN TAKE PT FOR WEEKLY BLOOD DRAWS TO MONITOR COUMADIN. MONICA DID REPORT THAT SHE WILL BE OUT OF TOWN THROUGH LATE TOMORROW AND IS REQUESTING A FRIDAY LATE MORNING D/C, HOSPITALIST AWARE AND AGREEABLE TO PLAN. CM WILL CONT TO FOLLOW D/C NEEDS.
[2021-07-04 12:21] LABS: INTERNATIONAL NORM RATIO 2.1 (0.9-1.1); Prothrombin Time 23.8 SEC (9.9-13.0)
[2021-07-04 12:46] LABS: Anion Gap 14 (12-20); Blood Urea Nitrogen 82 mg/dL (9-16); Calcium 8.3 mg/dL (8.4-10.2); Carbon Dioxide 15 mmol/L (22-29); Chloride 114 mmol/L (96-108); Creatinine Clr Calc Pharmacy 12.4; Estimated Glomerular Filt Rate 11; Glucose Random 195 mg/dL (60-115); Potassium 4.3 mmol/L (3.3-5.1); Sodium 139 mmol/L (135-145)
[2021-07-04] MEDS: Warfarin Sodium 2 MG TABLET PO (17:31)
[2021-07-05 04:00] VITALS: BP 151/82; PULSE 77; RESP 20; TEMP 37.3; O2SAT 97
[2021-07-05 05:31] LABS: INTERNATIONAL NORM RATIO 1.8 (0.9-1.1); Prothrombin Time 21.2 SEC (9.9-13.0)
[2021-07-05 05:50] LABS: Anion Gap 13 (12-20); Blood Urea Nitrogen 83 mg/dL (9-16); Calcium 8.4 mg/dL (8.4-10.2); Carbon Dioxide 16 mmol/L (22-29); Chloride 114 mmol/L (96-108); Creatinine Clr Calc Pharmacy 12.7; Estimated Glomerular Filt Rate 11; Glucose Random 127 mg/dL (60-115); Potassium 4.1 mmol/L (3.3-5.1); Sodium 139 mmol/L (135-145)
[2021-07-05 08:00] VITALS: BP 151/82; PULSE 77; RESP 18; TEMP 37.3; O2SAT 97
[2021-07-05] MEDS: glyBURIDE 5 MG TABLET 2.5 MG PO (09:43)
[2021-07-05] MEDS: amLODIPine Besylate 10 MG TABLET PO (09:44)
[2021-07-05] MEDS: Metoprolol Succinate ER 50 MG TAB.ER.24H PO (09:44)
[2021-07-05] MEDS: 0.9 % Sodium Chloride Flush 3 ML SYRINGE IVFLUSH ×3 (09:44→23:53)
[2021-07-05] MEDS: Cholecalciferol (Vitamin D3) 25 MCG TABLET 50 MCG PO (09:47)
[2021-07-05] MEDS: Ferrous Sulfate 324 MG TABLET.DR PO (09:47)
[2021-07-05] MEDS: Ascorbic Acid 250 MG TABLET PO (09:47)
[2021-07-05] MEDS: calcitrioL 0.25 MCG CAPSULE PO (09:47)
[2021-07-05] MEDS: Fluticasone Propionate Nasal 16 GM SPRAY 1 SPRAY NOSTRIL-B (09:49)
[2021-07-05] MEDS: timoloL maleate XE 0.5 % Gel 5 ML DRBTL 1 DROP EYE-RIGHT (09:49)
[2021-07-05] MEDS: prednisoLONE Acetate 1 % Oph Susp 5 ML DRPBTL 1 DROP EYE-BOTH (09:49)
[2021-07-05] MEDS: Atropine Sulfate 1 % Ophth Sol 2 ML BOTTLE 1 DROP EYE-LEFT ×2 (09:49→16:34)
[2021-07-05 11:17] VITALS: BP 196/84; PULSE 82; RESP 18; TEMP 37.1; O2SAT 96
[2021-07-05 15:24] VITALS: BP 163/71; PULSE 76; RESP 18; TEMP 37.1; O2SAT 94
--- NOTE | 2021-07-05 15:49 | P.PNNP_ITS ---
Subjective Subjective Date of Service: 07/05/21 Interval history: Chart REviewed. Events noted. Physical Exam Vital Signs: Vital Signs: Last Vital Signs Temp 98.7 F 07/05/21 15:24 Pulse 76 07/05/21 15:24 Resp 18 07/05/21 15:24 BP 163/71 H 07/05/21 15:24 Pulse Ox 94 07/05/21 15:24 BMI result Body Mass Index 25.7 Const: General: cooperative, comfortable and no acute distress O rientation/consciousness: patient oriented x3 HEENT: Head: Yes normocephalic Neck: Neck: Yes no JVD Resp: Auscultation: clear to auscultation bilaterally Cardio: Jugular venous distension: no JVD Rate: regular rate Rhythm: regular rhythm Heart sounds: S1 normal heart sound present and S2 normal heart sound present GI: Auscultation: normal bowel sounds Neuro: General: patient oriented x3 Extrem: General: Yes no clubbing, cyanosis or edema Objective Data Labs CBC & Chem 7: 07/01/21 06:33 07/05/21 05:13 Labs: Laboratory Results - last 24 hr 07/05/21 07/05/21 05:13 05:13 PT 21.2 H INR 1.8 H Sodium 139 Potassium 4.1 Chloride 114 H Carbon Dioxide 16 L Anion Gap 13 BUN 83 H Creatinine 3.92 H Estim Creat Clear Calc 12.7 Estimated GFR 11 Random Glucose 127 H Calcium 8.4 Microbiology Microbiology Results: Microbiology 06/30/21 16:09 Urine clean catch - Clean Catch Midstream Urine Culture - Fin al Procedures Date of Service Date of Service: 07/05/21 Assessment & Plan Assessment and plan (1) Metabolic acidosis: Status: Acute Assessment and Plan: Known severe CKD due to HTN/DM Baseline Scr ~ 3 mg/dl Has metabolic acidosis - On NaHCO3 - Increase NaHCO3 to tid. I discussed potential need for EMBEDDED SOFTWARE MANAGER in form of HD or PD and patient was adamant that she does not want dialysis. I reviewed with the patient that worsening renal function without EMBEDDED SOFTWARE MANAGER could res ult in and she stated that she understood this. She remained confident that she does not want dialysis. Consider GOC discussion with patient/family. Update MOLST. Continue rest of current supportive care for now (2) CKD (chronic kidney disease) stage 4, GFR 15-29 ml/min: Status: Acute Time Spent With Patient Time: Total time spent is greater than 50% in coordination of care (as documented) at patient's floor/unit and/or counseling patient: Progress Note: Quality Stroke Does the patient have a stroke diagnosis?: No
[2021-07-05] MEDS: Warfarin Sodium 2.5 MG TABLET PO (16:34)
--- NOTE | 2021-07-05 17:14 | HO.PM.IMPN ---
Subjective Subjective Date of Service: 07/05/21 Interval History: seen and examined this morning follow up for DVT, worsening renal function, metabolic acidosis declining to talk this morning as she wanted to make a phone call - unable to obtain ROS Physical Exam Vital Signs: Vital Signs: Last Vital Signs Temp 98.7 F 07/05/21 15:24 Pulse 76 07/05/21 15:24 Resp 18 07/05/21 15:24 BP 163/71 H 07/05/21 15:24 Pulse Ox 94 07/05/21 15:24 BMI result Body Mass Index 25.7 Const: General: comfortable, no acute distress, alert and awake Resp: Effort & Inspection: normal respiratory effort and able to speak in complete sentences Extrem: Other: moving all 4 extremities spontaneously Objective Data Active Medications Acetaminophen (Acetaminophen 325 Mg Tablet) 650 mg PO Q6H PRN PRN Reason: Pain, Mild (Pain Scale 1-3) Last Admin: 07/03/21 17:29 Dose: 650 mg Documented by: SUSAN Amlodipine Besylate (Amlodipine Besylate 10 Mg Tablet) 10 mg PO DAILY [facility]; Protocol Last Admin: 07/05/21 09:44 Dose: 10 mg Documented by: DAY Ascorbic Acid (Ascorbic Acid 250 Mg Tablet) 250 mg PO DAILY [facility] Last Admin: 07/05/21 09:47 Dose: 250 mg Documented by: DAY Atorvastatin Calcium (Atorvastatin Calcium 80 Mg Tablet) 80 mg PO BEDTIME [facility] Last Admin: 07/04/21 20:16 Dose: Not Given Documented by: MARLIN Non-Admin Reason: Patient Refused Atropine Sulfate (Atropine Sulfate 1 % Oph Jacki 2 Ml Bottle) 1 drop EYE-LEFT TID [facility] Last Admin: 07/05/21 16:34 Dose: 1 drop Documented by: CHERRY Calcitriol (Calcitriol 0.25 Mcg Capsule) 0.25 mcg PO DAILY [facility] Last Admin: 07/05/21 09:47 Dose: 0.25 mcg Documented by: DAY Ferrous Sulfate (Ferrous Sulfate 324 Mg Tablet.Dr) 324 mg PO DAILY [facility] Last Admin: 07/05/21 09:47 Dose: 324 mg Documented by: DAY Fluticasone Propionate (Fluticasone Propionate Nasal 16 Gm [place]) 1 spray NOSTRIL-B DAILY [facility] Last Admin: 07/05/21 09:49 Dose: 1 spray Documented by: DAY Glyburide (Glyburide 5 Mg Tablet) 2.5 mg PO DAILY [facility] Last Admin: 07/05/21 09:43 Dose: 2.5 mg Documented by: DAY Metoprolol Succinate (Metoprolol Succinate Er 50 Mg Tab.Er.24h) 50 mg PO DAILY [facility]; Protocol Last Admin: 07/05/21 09:44 Dose: 50 mg Documented by: DAY Pharmacy Consult (Consult Rx Perform Med Rec) 1 each MISCELLANE ONCE PRN PRN Reason: Consult order Pharmacy Consult (Consult Rx Perform Med Rec) 1 each MISCELLANE ONCE PRN PRN Reason: Consult order Prednisolone Acetate (Prednisolone Acetate 1 % Oph Susp 5 Ml Drpbtl) 1 drop EYE-BOTH DAILY [facility] Last Admin: 07/05/21 09:49 Dose: 1 drop Documented by: DAY Sodium Bicarbonate (Sodium Bicarbonate 650 Mg Tablet) 650 mg PO BID [facility] Last Admin: 07/05/21 09:47 Dose: Not Given Documented by: DAY Non-Admin Reason: Patient Refused Sodium Chloride (0.9 % Sodium Chloride Flush 3 Ml Syringe) 3 ml IVFLUSH QSHIFT [facility] Last Admin: 07/05/21 16:34 Dose: 3 ml Documented by: CHERRY Timolol Maleate (Timolol Maleate Xe 0.5 % Gel 5 Ml Drbtl) 1 drop EYE-RIGHT DAILY [facility] Last Admin: 07/05/21 09:49 Dose: 1 drop Documented by: DAY Vitamin D (Cholecalciferol (Vitamin D3) 25 Mcg Tablet) 50 mcg PO DAILY [facility] Last Admin: 07/05/21 09:47 Dose: 50 mcg Documented by: DAY Warfarin Sodium (Warfarin Sodium 2.5 Mg Tablet) 2.5 mg PO DAILY@1800 [facility] Last Admin: 07/05/21 16:34 Dose: 2.5 mg Documented by: CHERRY Labs CBC & Chem 7: 07/01/21 06:33 07/05/21 05:13 Labs: Laboratory Results - last 24 hr 07/05/21 07/05/21 05:13 05:13 PT 21.2 H INR 1.8 H Anion Gap 13 Estim Creat Clear Calc 12.7 Estimated GFR 11 Random Glucose 127 H Calcium 8.4 Assessment and Plan (1) Acute kidney injury superimposed on CKD: Status: Acute Plan 76yo F diagnosed with extensive LLE DVT at [facility] 06/01/21, presented here with LLE swelling after signing out AMA from STR, found to be anemic UTI mixed bacteria in urine final culture finished ceftriaxone 3 days Extensive left lower extremity DVT failed Eliquis IVC filter placed 06/19/21 Discontinue heparin gtt Decrease warfarin to 2 mg and follow INR. INR 1.8 today will increase dose Acute/chronic anemia related to CKD stage IV, transfused 2u pRBCs 06/16/21 with appropriate response in Hb worsening CKD 4, metabolic acidosis refusing IV and oral bicarbonate nephrology input appreciated, patient refusing dialysis advises to increase p.o. intake HTN fair control difficult to manage(compliance) DM2 control given limited treatment options continue glipizide physical deconditioning - PT: STR recommended, seeking placement options - pt declining all options presented, wants to go home without services dvt ppx - coumadin ACP: ?I had a chance to discuss with the patient her goals of care.? She reports that she does not want dialysis at any point not hemodialysis or even peritoneal one.? She would preferred to be full code.? Discussed CPR process and possible outcomes but she insisted she was to be a full code. Patient requires continued hospitalization for the following reasons: pending safe discharge plan and STR placement as the patient continue to refuse dialysis option. Quality Stroke Does the patient have a stroke diagnosis?: No VTE Prior VTE?: Yes VTE Risk Level:: Medical - moderate - high VTE Device Contraindication: Treatment Not Indicated VTE Drug Contraindication: N/A - Med Ordered
[2021-07-05 19:02] VITALS: BP 161/63; PULSE 80; RESP 18; TEMP 36.6; O2SAT 96
[2021-07-05 23:57] VITALS: BP 147/58; PULSE 77; RESP 17; TEMP 36.4; O2SAT 97
[2021-07-06 06:16] LABS: Anion Gap 13 (12-20); Blood Urea Nitrogen 80 mg/dL (9-16); Calcium 8.6 mg/dL (8.4-10.2); Carbon Dioxide 15 mmol/L (22-29); Chloride 114 mmol/L (96-108); Creatinine Clr Calc Pharmacy 12.6; Estimated Glomerular Filt Rate 11; Glucose Random 99 mg/dL (60-115); Potassium 4.3 mmol/L (3.3-5.1); Sodium 138 mmol/L (135-145)
[2021-07-06 06:28] LABS: INTERNATIONAL NORM RATIO 1.6 (0.9-1.1); Prothrombin Time 18.9 SEC (9.9-13.0)
[2021-07-06 07:22] VITALS: BP 154/73; PULSE 79; RESP 17; TEMP 36.6; O2SAT 98
[2021-07-06] MEDS: Ascorbic Acid 250 MG TABLET PO (09:28)
[2021-07-06] MEDS: Metoprolol Succinate ER 50 MG TAB.ER.24H PO (09:28)
[2021-07-06] MEDS: Cholecalciferol (Vitamin D3) 25 MCG TABLET 50 MCG PO (09:29)
[2021-07-06] MEDS: amLODIPine Besylate 10 MG TABLET PO (09:30)
[2021-07-06] MEDS: Ferrous Sulfate 324 MG TABLET.DR PO (09:30)
[2021-07-06] MEDS: glyBURIDE 5 MG TABLET 2.5 MG PO (09:30)
[2021-07-06] MEDS: calcitrioL 0.25 MCG CAPSULE PO (09:31)
--- NOTE | 2021-07-06 11:01 | MHC.CLN ---
F/U CONSULT FOR SKIN ISSUES. PATIENT WITH STAGE II WOUNDS TO BILATERAL BUTTOCKS. DIET=REGULAR WITH ENSURE CLEAR TID. REFUSES THERAPEUTIC DIET FOR DM/CKD. LIKES ENSURE CLEAR. SUPPLEMENT PROVIDES ADDITIONAL 720 KCALS, 24 G PROTEIN. CONTINUE SUPPLEMENT TO PROMOTE WOUND HEALING. INTAKE CONTINUES VARIABLE, 25-100%, WITH MOST MEALS GREATER THAN OR EQUAL TO 50%. ELEVATED BUN/Cr. REFUSING DIALYSIS. FOLLOW LABS, INTAKE, WOUNDS.
[2021-07-06] MEDS: timoloL maleate XE 0.5 % Gel 5 ML DRBTL 1 DROP EYE-RIGHT (11:13)
[2021-07-06] MEDS: Fluticasone Propionate Nasal 16 GM SPRAY 1 SPRAY NOSTRIL-B (11:13)
[2021-07-06] MEDS: Atropine Sulfate 1 % Ophth Sol 2 ML BOTTLE 1 DROP EYE-LEFT ×3 (11:14→20:41)
[2021-07-06] MEDS: prednisoLONE Acetate 1 % Oph Susp 5 ML DRPBTL 1 DROP EYE-BOTH (11:14)
--- NOTE | 2021-07-06 11:15 | MHC.CM.PN ---
nurse case mike note electronic medical record reviewed along with case discussed with staff nurse [facility] patient she is still against having any visiting nurse when asked . she also requested to talk with her layer off and also dr fox before she leaves , [facility] , she will be willing to come bavk to [facility] for the coumadin clinic , reforal form to be [facility] and faxed top [facility] coumadin clinic , i spoke with marcellus and she will need to have anyy labs drawn over the weekend at the [facility] as th[facility] are closed and they will be reported to pcp. discharge plan home referral to the outpatient [facility] coumadin clinic for inr checks to start next week and will have to come back to the hospital on sat for inr check she will be givwn a lab slip for this . pcp dr pierce han faxed d/c instructions and d/c summary to his office [phone] and informed his auto glass installer PATIENT WILL HAVE INR DRAWN IN OUTPT LAB OVER WEEKEND AND START [facility] COUMADIN CLINIC NEXT WEEK. PCP PATIENT TO [facility] FOR APPOINTMNET OT BE SEEN 1 WEEK TRANSPORTATION FAMILY AT THEIR REQUEST PT /DAUGHTER REFUSED ACTION QAMAR WOODWARD ) PER [facility] NOTES PATIENT REFUSING TO START ON ANY HEMO DIALYSIS AND WANTS TO REMAIN A FULL CODE . MEDICARE IMMM AND APPEALS REXPLAINED TO PATIENT AND TO HER DAUGHTER
[2021-07-06 11:43] VITALS: BP 157/65; PULSE 76; RESP 17; TEMP 37; O2SAT 98
--- NOTE | 2021-07-06 12:21 | PM.DS ---
DS: Providers Provider Date of Service: 07/06/21 Date of admission: 06/16/21 16:10 Date of discharge: 07/06/21 Primary care physician: Alex Spence MD Consults: 06/17/21 07:14 Consult to Nephrology Routine Consulting Provider: Rudolph Pardo Reason for consultation: CKD Has provider been notified: No 06/17/21 07:24 Consult to Vascular Surgery Routine Consulting Provider: Mateo Blood Reason for consultation: LLE deep system clot Has provider been notified: No 06/19/21 09:19 Consult to Hematology / Oncology Routine Consulting Provider: [facility] Oncology/Hematology Reason for consultation: thrombosed LLE despite eliquis.. ?noncompliant? IVCF planned, AC plan? Attending physician on discharge: Olivier Root Discharging clinician: Lois Napier DS: Diagnosis Discharge Diagnosis (1) Acute kidney injury superimposed on CKD: Status: Acute DS: Summary Hospital Course Hospital Course: 76-year-old female recently admitted to rehab for left lower extremity DVT.? Routine labs demonstrated a hemoglobin 7.2 was scheduled for transfusion.? Patient unhappy with her care and signed out AMA.? Presents to [facility] with a worsening left lower extremity edema in backdrop of ongoing Eliquis therapy.? She voices no cardiac complaints at this time she will be admitted for transfusion and workup of left lower extremity edema Hospital course Admitted to general medical floor and transfused 2 appropriate hemoglobin. Patient was started on heparin drip assuming failed Eliquis therapy in the backdrop of chronic kidney disease. She was seen in consultation by vascular surgery; on 06/19/2021 patient underwent ultrasound-guided insertion of an inferior vena cava filter without incident. She was subsequently maintained on heparin as a bridge until INR was trending up and was then discontinued. Her INR then began trending down. The patient did not want to stay in the hospital so the case was discussed with hematology. She should take 4mg of coumadin on the day of discharge followed by 3 mg daily until INR is checked on Friday. Tuesdays INR will be cc to both Dr. Monroy as well as patient's PCP. Coumadin dose should be adjusted from there. She should follow in the coumadin clinic for INR's following that. UTI mixed bacteria in urine final culture. finished ceftriaxone 3 days Extensive left lower extremity DVT. failed Eliquis. IVC filter placed 06/19/21. Dose of coumdin increased to 4 mg on day of discharge. Acute/chronic anemia related to CKD stage IV, transfused 2u pRBCs 06/16/21 with appropriate response in Hb worsening CKD 4, metabolic acidosis. patient has refused IV and oral bicarbonate. she was followed by nephrology and is also declining dialysis. She will be discharged home on oral sodium bicarb and should follow up with nephrology as outpatient. HTN. metoprolol was added to Norvasc for adequate BP control. DM2 control given limited treatment options. glipizide dose changed to 2.5 mg daily. physical deconditioning - PT: STR recommended, seeking placement options - pt declined all options presented and opted to return home without services. Time Spent with Patient Time attestation: Total time spent providing and/or coordinating discharge services: Quality: Safe Use of Opioids Does Pt have an Active Cancer Diagnosis on the Problem List?: No Physical Exam Vital Signs: Vital Signs: Last Vital Signs Temp 98.6 F 07/06/21 11:43 Pulse 76 07/06/21 11:43 Resp 17 07/06/21 11:43 BP 157/65 H 07/06/21 11:43 Pulse Ox 98 07/06/21 11:43 BMI result Body Mass Index 25.7 Const: Other: patient declined to be evaluated General: alert and awake Nutritional Appearance: average body habitus Orientation/consciousness: patient oriented x3 Neuro: General: patient oriented x3 DS: Data Data Completed and Pending Completed studies during hospitalization [Text1]: Procedures Bypass Left Femoral Artery to Right Femoral Artery with Synthetic Substitute, Open Approach (07/27/20) Detachment at Right 1st Toe, Complete, Open Approach (07/27/20) Dilation of Left External Iliac Artery using Drug-Coated Balloon, Percutaneous Approach (04/14/20) Extirpation of Matter from Right Femoral Artery, Open Approach (07/27/20) Insertion of Infusion Device into Superior Vena Cava, Percutaneous Approach (04/14/20) Transfusion of Nonautologous Red Blood Cells into Peripheral Vein, Percutaneous Approach (07/27/20) Ultrasonography of Superior Vena Cava, Guidance (04/14/20) Labs on day of discharge: Laboratory Results - last 24 hr 07/06/21 07/06/21 05:39 05:39 PT 18.9 H INR 1.6 H Sodium 138 Potassium 4.3 Chloride 114 H Carbon Dioxide 15 L Anion Gap 13 BUN 80 H Creatinine 3.94 H Estim Creat Clear Calc 12.6 Estimated GFR 11 Random Glucose 99 Calcium 8.6 Discharge Plan Discharge Anticipated Discharge Date/Time: 07/09/21 09:32 Patient Disposition: Home Health Service Discharge Diagnosis: LLE DVT CKD4 metabolic acidosis Referrals: [facility] coumadin clinic [Other] - 3-5 Days (please call them to set up appointmnet [phone] friday you will need to come back to the [facility] for ourtpatient labs for checking your inr. as you will not start with the coumadin clinic until a later date ) Alex Spence MD [Primary Care Provider] - 1 Week Mateo Blood MD [Physician] - 1 Week Discharge Medications: New metoprolol succinate 50 mg Tablet Extended Release 24 Hr 50 mg PO DAILY Qty: 30 0RF Protocol: Hold for SBP/HR < HOLD for SBP < : 90 HOLD for HR < : 60 warfarin 3 mg tablet 3 mg PO DAILY Qty: 30 0RF glyburide 5 mg Tablet 2.5 mg PO DAILY 30 Days Qty: 15 0RF Continued prednisolone acetate 1 % drops,suspension 1 drp ophthalmic (eye) DAILY 0RF atropine 1 % drops 1 drp ophthalmic-Left TID 0RF calcitriol 0.25 mcg Capsule 0.25 mcg PO DAILY 0RF cyanocobalamin (vitamin B-12) 1,000 mcg/mL Kit 1,000 mcg IM QMONTH 0RF Rx Instructions: on the 10th of each month ascorbic acid (vitamin C) 500 mg Tablet 250 mg PO DAILY 0RF ferrous sulfate 325 mg (65 mg iron) Tablet 325 mg PO DAILY 0RF fluticasone propionate 50 mcg/actuation [place],Suspension 1 spray INTRANASAL DAILY 0RF cholecalciferol (vitamin D3) 25 mcg (1,000 unit) Tablet 50 mcg PO DAILY 0RF timolol maleate 0.25 % drops 1 drp ophthalmic-Right DAILY 0RF vitamin E 400 unit Capsule 400 unit PO DAILY 0RF atorvastatin 80 mg Tablet 80 mg PO BEDTIME 0RF amlodipine 5 mg Tablet 5 mg PO DAILY 0RF sodium bicarbonate 650 mg Tablet 650 mg PO BID 0RF Discontinued glyburide 5 mg Tablet 5 mg PO DAILY 0RF aspirin 325 mg Tablet 325 mg PO DAILY 0RF apixaban 5 mg Tablet 5 mg PO BID 0RF Discharge Orders: Discharge Order (Routine); Ordered 07/09/21 Ordered By: Ronda Yoo Diet: advance to usual diet Activity on Discharge: As tolerated Stand Alone Forms: Patient Portal Discharge page Other Ambulatory Orders: Basic Metabolic Panel (Routine) Timeframe: 1 Week Facility: [facility] - Location: Laboratory Ordered By: Lois Napier Complete Blood Count no Diff (Routine) Timeframe: 1 Week Facility: [facility] - Location: Laboratory Ordered By: Lois Napier Prothrombin Time INR (Routine) Timeframe: [id number] Facility: [facility] - Location: Laboratory Ordered By: Lois Napier Care Plan Goals: See below Health Concerns: DVT CKD Plan of Treatment: Call to schedule follow up with PCP Call to schedule follow up with nephrology Follow-up with Dr. Blood in 2 weeks Take coumadin 3mg daily until labs are checked on Friday Get INR checked on Friday. Dose of INR will be adjusted based on the dose. Follow up in the coumadin clinic for INR monitoring. Dose of gliburide has been decreased to 2.5 mg daily metoprolol has been added for blood pressure control Assessment: See discharge summary Discharge Date/Time: 07/09/21 11:36
--- NOTE | 2021-07-06 13:40 | MHC.CM.PN ---
THIS SOURCING COORDINATOR ASSISTED WITH DC NEEDS. [facility] [employer] NOTIFIED VIA COMPLETED FORM THAT WAS THEN FAXED TO [phone]
--- NOTE | 2021-07-06 15:54 | MHC.CM.PN ---
Addendum entered by Anh Lamar 07/07/21 13:58: NEW PLAN- DC HOME Friday07/08/21 MESSAGE LEFT FOR SANDRA AT [phone] Addendum entered by Anh Lamar 07/06/21 16:19: CALL RECEIVED FROM ANSWERING SERVICE FOR [employer]. ACCORDING TO STAFF, CASE MANAGEMENT IS TO CALL SANDRA @ [phone] WITHIN AN HOUR OF PATIENT LEAVING SO THAT HE CAN UNLOCK THE DOOR FOR PATIENT. PATIENT STATES THAT SHE NEEDS CLOTHES THIS PARKING METER SERVICER STATED THAT [facility] CAN PROVIDE CLOTHES. PATIENT REFUSES CLOTHES FROM [facility]. THIS PARKING METER SERVICER INFORMED PATIENT THAT SHE WILL DC HOME WITH [facility] AND CAN CHOOSE HER ATTIRE ONCE SHE ARRIVES HOME. PATIENT AGREES TO PLAN. Addendum entered by Anh Lamar 07/06/21 16:06: CALL TO ANSWERING SERVICE FOR [place]IO ([phone]) THIS PARKING METER SERVICER ASKING IF PATIENT CAN GET ASSISTANCE UNLOCKING HER APARTMENT DOOR TOMORROW. ([address]) ANSWERING SERVICE WILL CALL THIS PARKING METER SERVICER BACK. CONTACT NUMBER LEFT Original Note: PATIENT AWARE THAT SHE WILL DC HOME BY AMBULANCE TOMORROW IF HER DAUGHTER IS UNABLE TO PROVIDE TRANSPORT HOME. PATIENT WANTS TO GO HOME SHE STATES THAT SHE NEEDS HER KEYS. PATIENT ALSO AWARE THAT [facility] WAS CONTACTED AND THIS AGENCY MAY BE OF BENEFIT FOR NECESSARY ASSISTANCES MESSAGE LEFT FOR DENIS ANDERSON @ [phone] WITH CONTACT NUMBERS LEFT ON [employer] MESSAGE INCLUDED TOMORROW'S DC PLAN, THE NEED FOR KEYS FOR THE APARTMENT, PROTECTIVE SERVICES BEING CONTACTED, AND THE PATIENT'S DESIRE TO RETURN HOME
[2021-07-06 16:03] VITALS: BP 165/65; PULSE 76; RESP 18; TEMP 36.4; O2SAT 99
--- NOTE | 2021-07-06 16:06 | PM.PNNEP ---
Subjective Subjective Date of Service: 07/06/21 Interval history: seen and examined this morning, events noted Physical Exam Vital Signs: Vital Signs: Last Vital Signs Temp 97.6 F 07/06/21 16:03 Pulse 76 07/06/21 16:03 Resp 18 07/06/21 16:03 BP 165/65 H 07/06/21 16:03 Pulse Ox 99 07/06/21 16:03 BMI result Body Mass Index 25.7 Const: General: cooperative, comfortable and no acute distress Orientation/consciousness: patient oriented x3 HEENT: Head: Yes normocephalic and Yes atraumatic Eyes: EOM: EOMs intact bilaterally Neck: Neck: Yes supple and Yes no JVD Resp: Auscultation: clear to auscultation bilaterally and diminished lung sounds Cardio: Jugular venous distension: no JVD Rate: regular rate Rhythm: regular rhythm Heart sounds: S1 normal heart sound present and S2 normal heart sound present GI: Palpation (GI): Soft to palpation Auscultation: normal bowel sounds Skin: Lesions: no lesions Neuro: General: patient oriented x3 and moves all extremities Extrem: General: Yes no clubbing, cyanosis or edema, Yes no pedal edema and Yes no calf tenderness Objective Data Labs CBC & Chem 7: 07/01/21 06:33 07/06/21 05:39 Labs: Laboratory Results - last 24 hr 07/06/21 07/06/21 05:39 05:39 PT 18.9 H INR 1.6 H Sodium 138 Potassium 4.3 Chloride 114 H Carbon Dioxide 15 L Anion Gap 13 BUN 80 H Creatinine 3.94 H Estim Creat Clear Calc 12.6 Estimated GFR 11 Random Glucose 99 Calcium 8.6 Microbiology Microbiology Results: Microbiology 06/30/21 16:09 Urine clean catch - Clean Catch Midstream Urine Culture - Final Procedures Date of Service Date of Service: 07/06/21 Assessment & Plan Assessment and plan (1) Metabolic acidosis: Status: Acute Assessment and Plan: 1. CKD 5 w/o uremic sym[ptoms yet and so she is gong to wait to start HD--doesnt want PD 2. NAGMA: goal is HCO3 > 24 3. DVT 4. Anemia: Fe stores ok; will arrange procrit as outpt 5. MBD of CKD: check PTH/vit D REC: if d/c'd then needs outpt labs in 2 wks and I will arrange f/u in office with me for prep of [employer] DEVELOPER and EPO (2) CKD (chronic kidney disease) stage 4, GFR 15-29 ml/min: Status: Acute Time Spent With Patient Time: Total time spent is greater than 50% in coordination of care (as documented) at patient's floor/unit and/or counseling patient: Progress Note: Quality Stroke Does the patient have a stroke diagnosis?: No
[2021-07-06] MEDS: Warfarin Sodium 4 MG TABLET PO ×2 (17:12→17:28)
[2021-07-06] MEDS: 0.9 % Sodium Chloride Flush 3 ML SYRINGE IVFLUSH ×2 (17:12→20:43)
[2021-07-06 19:33] VITALS: BP 156/63; PULSE 76; RESP 18; TEMP 36.3; O2SAT 96
[2021-07-06 23:30] VITALS: BP 157/77; PULSE 78; RESP 18; TEMP 36.4; O2SAT 96
[2021-07-07 03:00] VITALS: BP 173/77; PULSE 79; RESP 18; TEMP 36.4; O2SAT 97
[2021-07-07 06:10] LABS: INTERNATIONAL NORM RATIO 1.6 (0.9-1.1); Prothrombin Time 17.8 SEC (9.9-13.0)
[2021-07-07 08:00] VITALS: BP 161/70; PULSE 78; RESP 17; TEMP 37.3; O2SAT 96
[2021-07-07] MEDS: 0.9 % Sodium Chloride Flush 3 ML SYRINGE IVFLUSH ×3 (09:41→21:08)
[2021-07-07] MEDS: timoloL maleate XE 0.5 % Gel 5 ML DRBTL 1 DROP EYE-RIGHT (09:42)
[2021-07-07] MEDS: Atropine Sulfate 1 % Ophth Sol 2 ML BOTTLE 1 DROP EYE-LEFT ×3 (09:42→21:07)
[2021-07-07] MEDS: Fluticasone Propionate Nasal 16 GM SPRAY 1 SPRAY NOSTRIL-B (09:42)
[2021-07-07] MEDS: prednisoLONE Acetate 1 % Oph Susp 5 ML DRPBTL 1 DROP EYE-BOTH (09:42)
[2021-07-07] MEDS: amLODIPine Besylate 10 MG TABLET PO (09:43)
[2021-07-07] MEDS: Metoprolol Succinate ER 50 MG TAB.ER.24H PO (09:43)
[2021-07-07] MEDS: calcitrioL 0.25 MCG CAPSULE PO (09:43)
[2021-07-07] MEDS: glyBURIDE 5 MG TABLET 2.5 MG PO (09:43)
[2021-07-07] MEDS: Cholecalciferol (Vitamin D3) 25 MCG TABLET 50 MCG PO (09:43)
[2021-07-07] MEDS: Ascorbic Acid 250 MG TABLET PO (09:44)
[2021-07-07] MEDS: Ferrous Sulfate 324 MG TABLET.DR PO (09:45)
[2021-07-07 11:53] VITALS: BP 166/72; PULSE 76; RESP 17; TEMP 37.1; O2SAT 98
--- NOTE | 2021-07-07 12:44 | P.PNNP_ITS ---
Subjective Subjective Date of Service: 07/07/21 Interval history: seen and examined this morning, events noted Physical Exam Vital Signs: Vital Signs: Last Vital Signs Temp 98.8 F 07/07/21 11:53 Pulse 76 07/07/21 11:53 Resp 17 07/07/21 11:53 BP 166/72 H 07/07/21 11:53 Pulse Ox 98 07/07/21 11:53 BMI result Body Mass Index 25.7 Const: General: cooperative, comfortable and no acute distress Orientation/consciousness: patient oriented x3 HEENT: Head: Yes normocephalic and Yes atraumatic Eyes: EOM: EOMs intact bilaterally Neck: Neck: Yes supple and Yes no JVD Resp: Auscultation: clear to auscultation bilaterally and diminished lung sounds Cardio: Jugular venous distension: no JVD Rate: regular rate Rhythm: regular rhythm Heart sounds: S1 normal heart sound present and S2 normal heart sound present GI: Palpation (GI): Soft to palpation Auscultation: normal bowel sounds Skin: Lesions: no lesions Neuro: General: patient oriented x3 and moves all extremities Extrem: General: Yes no clubbing, cyanosis or edema, Yes no pedal edema and Yes no calf tenderness Objective Data Labs CBC & Chem 7: 07/01/21 06:33 07/06/21 05:39 Labs: Laboratory Results - last 24 hr 07/07/21 05:51 PT 17.8 H INR 1.6 H Microbiology Microbiology Results: Microbiology 06/30/21 16:09 Urine clean catch - Clean Catch Midstream Urine Culture - Final Procedures Date of Service Date of Service: 07/07/21 Assessment & Plan Assessment and plan (1) Metabolic acidosis: Status: Acute Assessment and Plan: 1. CKD 5 w/o uremic sym[ptoms yet and so she is gong to wait to start HD--doesnt want PD 2. NAGMA: goal is HCO3 > 24 3. DVT 4. Anemia: Fe stores ok; will arrange procrit as outpt 5. MBD of CKD: check PTH/vit D REC: incr NaHCO3 1300 bid; if d/c'd then needs outpt labs in 2 wks and I will arrange f/u in office with me for prep of [employer] TEACHER and EPO (2) CKD (chronic kidney disease) stage 4, GFR 15-29 ml/min: Status: Acute Time Spent With Patient Time: Total time spent is greater than 50% in coordination of care (as documented) at patient's floor/unit and/or counseling patient: Progress Note: Quality Stroke Does the patient have a stroke diagnosis?: No
--- NOTE | 2021-07-07 13:05 | P.PNIM_ITS ---
Subjective Subjective Date of Service: 07/07/21 Review of Systems Follow up Left leg DVT NO pain today Physical Exam Vital Signs: Vital Signs: Last Vital Signs Temp 98.8 F 07/07/21 11:53 Pulse 76 07/07/21 11:53 Resp 17 07/07/21 11:53 BP 166/72 H 07/07/21 11:53 Pulse Ox 98 07/07/21 11:53 BMI result Body Mass Index 25.7 Appearing in no acute distress lung sounds are clear to auscultation heart regular rate rhythm, clear S1, S2 positive bowel sounds, abdomen is soft, nontender neuro patient is alert x3, no focal deficits Objective Data Active Medications Acetaminophen (Acetaminophen 325 Mg Tablet) 650 mg PO Q6H PRN PRN Reason: Pain, Mild (Pain Scale 1-3) Last Admin: 07/03/21 17:29 Dose: 650 mg Documented by: SUSAN Amlodipine Besylate (Amlodipine Besylate 10 Mg Tablet) 10 mg PO DAILY [facility]; Protocol Last Admin: 07/07/21 09:43 Dose: 10 mg Documented by: ABELINO Ascorbic Acid (Ascorbic Acid 250 Mg Tablet) 250 mg PO DAILY [facility] Last Admin: 07/07/21 09:44 Dose: 250 mg Documented by: ABELINO Atorvastatin Calcium (Atorvastatin Calcium 80 Mg Tablet) 80 mg PO BEDTIME [facility] Last Admin: 07/06/21 20:43 Dose: Not Given Documented by: REBECCA Non-Admin Reason: Patient Refused Atropine Sulfate (Atropine Sulfate 1 % Ophth Jacki 2 Ml Bottle) 1 drop EYE-LEFT TID [facility] Last Admin: 07/07/21 09:42 Dose: 1 drop Documented by: ABELINO Calcitriol (Calcitriol 0.25 Mcg Capsule) 0.25 mcg PO DAILY [facility] Last Admin: 07/07/21 09:43 Dose: 0.25 mcg Documented by: ABELINO Ferrous Sulfate (Ferrous Sulfate 324 Mg Tablet.) 324 mg PO DAILY [facility] Last Admin: 07/07/21 09:45 Dose: 324 mg Documented by: ABELINO Fluticasone Propionate (Fluticasone Propionate Nasal 16 Gm [place]) 1 spray NOSTRIL-B DAILY [facility] Last Admin: 07/07/21 09:42 Dose: 1 spray Documented by: ABELINO Glyburide (Glyburide 5 Mg Tablet) 2.5 mg PO DAILY [facility] Last Admin: 07/07/21 09:43 Dose: 2.5 mg Documented by: ABELINO Metoprolol Succinate (Metoprolol Succinate Er 50 Mg Tab.Er.24h) 50 mg PO DAILY [facility]; Protocol Last Admin: 07/07/21 09:43 Dose: 50 mg Documented by: ABELINO Pharmacy Consult (Consult Rx Perform Med Rec) 1 each MISCELLANE ONCE PRN PRN Reason: Consult order Pharmacy Consult (Consult Rx Perform Med Rec) 1 each MISCELLANE ONCE PRN PRN Reason: Consult order Prednisolone Acetate (Prednisolone Acetate 1 % Oph Susp 5 Ml Drpbtl) 1 drop EYE-BOTH DAILY [facility] Last Admin: 07/07/21 09:42 Dose: 1 drop Documented by: ABELINO Sodium Bicarbonate (Sodium Bicarbonate 650 Mg Tablet) 1,300 mg PO BID [facility] Last Admin: 07/07/21 13:05 Dose: Not Given Documented by: ABELINO Non-Admin Reason: Patient Refused Sodium Chloride (0.9 % Sodium Chloride Flush 3 Ml Syringe) 3 ml IVFLUSH QSHIFT [facility] Last Admin: 07/07/21 09:41 Dose: 3 ml Documented by: ABELINO Timolol Maleate (Timolol Maleate Xe 0.5 % Gel 5 Ml Drbtl) 1 drop EYE-RIGHT DAILY [facility] Last Admin: 07/07/21 09:42 Dose: 1 drop Documented by: ABELINO Vitamin D (Cholecalciferol (Vitamin D3) 25 Mcg Tablet) 50 mcg PO DAILY [facility] Last Admin: 07/07/21 09:43 Dose: 50 mcg Documented by: ABELINO Warfarin Sodium (Warfarin Sodium 3 Mg Tablet) 3 mg PO DAILY@1800 [facility] Labs CBC & Chem 7: 07/01/21 06:33 07/06/21 05:39 Labs: Laboratory Results - last 24 hr 07/07/21 05:51 PT 17.8 H INR 1.6 H Assessment and Plan (1) Acute kidney injury superimposed on CKD: Status: Acute Plan 76yo F diagnosed with extensive LLE DVT at [facility] 06/01/21, presented here with LLE swelling after signing out AMA from STR, found to be anemic UTI mixed bacteria in urine final culture finished ceftriaxone 3 days Extensive left lower extremity DVT failed Eliquis IVC filter placed 06/19/21 Discontinue heparin gtt Decrease warfarin to 2 mg and follow INR. Acute/chronic anemia related to CKD stage IV, transfused 2u pRBCs 06/16/21 with appropriate response in Hb worsening CKD 4, metabolic acidosis, renal function improved refusing IV and oral bicarbonate nephrology input appreciated, patient refusing dialysis advises to increase p.o. intake HTN fair control difficult to manage(compliance) DM2 control given limited treatment options continue glipizide physical deconditioning - PT: STR recommended, seeking placement options - pt declining all options presented, wants to go home without services dvt ppx - coumadin Attending Dr. Root Patient requires continued hospitalization for the following reasons: pending safe discharge plan and STR placement as the patient continue to refuse dialysis option. Quality Stroke Does the patient have a stroke diagnosis?: No VTE Prior VTE?: Yes VTE Risk Level:: Medical - moderate - high VTE Device Contraindication: Treatment Not Indicated VTE Drug Contraindication: N/A - Med Ordered
[2021-07-07 15:31] VITALS: BP 165/73; PULSE 80; RESP 18; TEMP 36.6; O2SAT 98
[2021-07-07] MEDS: Warfarin Sodium 3 MG TABLET PO (18:38)
[2021-07-07 19:40] VITALS: BP 172/77; PULSE 77; RESP 18; TEMP 36.4; O2SAT 97
[2021-07-08] VITALS: PULSE 80; RESP 18; TEMP 36.8; O2SAT 98
[2021-07-08 06:40] LABS: INTERNATIONAL NORM RATIO 1.6 (0.9-1.1)
[2021-07-08 07:17] VITALS: BP 157/73; PULSE 72; RESP 17; TEMP 36.3; O2SAT 96
--- NOTE | 2021-07-08 09:09 | P.DS_ITS ---
DS: Providers Provider Date of Service: 07/08/21 Date of admission: 06/16/21 16:10 Primary care physician: Alex Spence MD Consults: 06/17/21 07:14 Consult to Nephrology Routine Consulting Provider: Rudolph Pardo Reason for consultation: CKD Has provider been notified: No 06/17/21 07:24 Consult to Vascular Surgery Routine Consulting Provider: Mateo Blood Reason for consultation: LLE deep system clot Has provider been notified: No 06/19/21 09:19 Consult to Hematology / Oncology Routine Consulting [place] [facility] [place] Reason for consultation: thrombosed LLE despite eliquis.. ?noncompliant? IVCF planned, AC plan? Attending physician on discharge: [facility] Discharging clinician: Ronda Yoo DS: Diagnosis Discharge Diagnosis (1) Acute kidney injury superimposed on CKD: Status: Acute DS: Summary Hospital Course Hospital Course: 76-year-old female recently admitted to rehab for left lower extremity DVT.? Routine labs demonstrated a hemoglobin 7.2 was scheduled for transfusion.? Patient unhappy with her care and signed out AMA.? Presents to [facility] with a worsening left lower extremity edema in backdrop of ongoing Eliquis therapy.? She voices no cardiac complaints at this time she will be admitted for transfusion and workup of left lower extremity edema Hospital course Admitted to general medical floor and transfused 2 appropriate hemoglobin. Patient was started on heparin drip assuming failed Eliquis therapy in the backdrop of chronic kidney disease. She was seen in consultation by vascular surgery; on 06/19/2021 patient underwent ultrasound-guided insertion of an inferior vena cava filter without incident. She was subsequently maintained on heparin as a bridge until INR was trending up and was then discontinued. Her INR then began trending down. The patient did not want to stay in the hospital so the case was discussed with hematology. She should take 4mg of coumadin on the day of discharge followed by 3 mg daily until INR is checked on Friday. Tuesdays INR will be cc to both Dr. Monroy as well as patient's PCP. Coumadin dose should be adjusted from there. She should follow in the coumadin clinic for INR's following that. UTI mixed bacteria in urine final culture. finished ceftriaxone 3 days Extensive left lower extremity DVT. failed Eliquis. IVC filter placed 06/19/21. Dose of coumdin increased to 4 mg on day of discharge. Acute/chronic anemia related to CKD stage IV, transfused 2u pRBCs 06/16/21 with appropriate response in Hb worsening CKD 4, metabolic acidosis. patient has refused IV and oral bicarbonate. she was followed by nephrology and is also declining dialysis. She will be discharged home on oral sodium bicarb and should follow up with nephrology as outpatient. HTN. metoprolol was added to Norvasc for adequate BP control. DM2 control given limited treatment options. glipizide dose changed to 2.5 mg daily. physical deconditioning - PT: STR recommended, seeking placement options - pt declined all options presented and opted to return home without services. Time Spent with Patient Time attestation: Total time spent providing and/or coordinating discharge services: Discharge coordination time: Greater than 30 minutes Quality: Safe Use of Opioids Does Pt have an Active Cancer Diagnosis on the Problem List?: No Quality: Stroke Does the patient have a stroke diagnosis?: No Physical Exam Vital Signs: Vital Signs: Last Vital Signs Temp 97.3 F 07/08/21 07:17 Pulse 72 07/08/21 07:17 Resp 17 07/08/21 07:17 BP 157/73 H 07/08/21 07:17 Pulse Ox 96 07/08/21 07:17 BMI result Body Mass Index 25.7 Appearing in no acute distress head is normocephalic atraumatic eyes pupils are PERRLA sclera is anicteric mouth throat mucous membranes are intact and moist neck is supple no lymphadenopathy, no JVD noted lung sounds are clear to auscultation heart regular rate rhythm, clear S1, S2 positive bowel sounds, abdomen is soft, nontender neuro patient is alert x3, no focal deficits DS: Data Data Completed and Pending Completed studies during hospitalization [Text1]: Procedures Bypass Left Femoral Artery to Right Femoral Artery with Synthetic Substitute, Open Approach (07/27/20) Detachment at Right 1st Toe, Complete, Open Approach (07/27/20) Dilation of Left External Iliac Artery using Drug-Coated Balloon, Percutaneous Approach (04/14/20) Extirpation of Matter from Right Femoral Artery, Open Approach (07/27/20) Insertion of Infusion Device into Superior Vena Cava, Percutaneous Approach (03/05/21) Transfusion of Nonautologous Red Blood Cells into Peripheral Vein, Percutaneous Approach (07/27/20) Ultrasonography of Superior Vena Cava, Guidance (04/14/20) Labs on day of discharge: Laboratory Results - last 24 hr 07/08/21 06:02 PT 18.0 H INR 1.6 H Discharge Plan Discharge Anticipated Discharge Date/Time: 07/08/21 09:06 Patient Disposition: Home Health Service Discharge Diagnosis: LLE DVT CKD4 metabolic acidosis Referrals: [facility] coumadin clinic [Other] - 3-5 Days (please call them to set up appointmnet [phone] friday you will need to come back to the [facility] for ourtpatient labs for checking your inr. as you will not start with the coumadin clinic until a later date ) Alex Spence MD [Primary Care Provider] - 1 Week Mateo Blood MD [Physician] - 1 Week Discharge Medications: New metoprolol succinate 50 mg Tablet Extended Release 24 Hr 50 mg PO DAILY Qty: 30 0RF Protocol: Hold for SBP/HR < HOLD for SBP < : 90 HOLD for HR < : 60 warfarin 3 mg tablet 3 mg PO DAILY Qty: 30 0RF glyburide 5 mg Tablet 2.5 mg PO DAILY 30 Days Qty: 15 0RF Continued prednisolone acetate 1 % drops,suspension 1 drp ophthalmic (eye) DAILY 0RF atropine 1 % drops 1 drp ophthalmic-Left TID 0RF calcitriol 0.25 mcg Capsule 0.25 mcg PO DAILY 0RF cyanocobalamin (vitamin B-12) 1,000 mcg/mL Kit 1,000 mcg IM QMONTH 0RF Rx Instructions: on the 10th of each month ascorbic acid (vitamin C) 500 mg Tablet 250 mg PO DAILY 0RF ferrous sulfate 325 mg (65 mg iron) Tablet 325 mg PO DAILY 0RF fluticasone propionate 50 mcg/actuation [place],Suspension 1 spray INTRANASAL DAILY 0RF cholecalciferol (vitamin D3) 25 mcg (1,000 unit) Tablet 50 mcg PO DAILY 0RF timolol maleate 0.25 % drops 1 drp ophthalmic-Right DAILY 0RF vitamin E 400 unit Capsule 400 unit PO DAILY 0RF atorvastatin 80 mg Tablet 80 mg PO BEDTIME 0RF amlodipine 5 mg Tablet 5 mg PO DAILY 0RF sodium bicarbonate 650 mg Tablet 650 mg PO BID 0RF Discontinued glyburide 5 mg Tablet 5 mg PO DAILY 0RF aspirin 325 mg Tablet 325 mg PO DAILY 0RF apixaban 5 mg Tablet 5 mg PO BID 0RF Discharge Orders: Discharge Order (Routine); Ordered 07/08/21 Ordered By: Ronda Yoo Diet: advance to usual diet Activity on Discharge: As tolerated Stand Alone Forms: Patient Portal Discharge page Other Ambulatory Orders: Basic Metabolic Panel (Routine) Timeframe: 1 Week Facility: [facility] - Location: Laboratory Ordered By: Lois Napier Complete Blood Count no Diff (Routine) Timeframe: 1 Week Facility: [facility] - Location: Laboratory Ordered By: Lois Napier Prothrombin Time INR (Routine) Timeframe: [id number] Facility: [facility] - Location: Laboratory Ordered By: Lois Napier Care Plan Goals: See below Health Concerns: DVT CKD Plan of Treatment: Call to schedule follow up with PCP Call to schedule follow up with nephrology Follow-up with Dr. Blood in 2 weeks Take coumadin 3mg daily until labs are checked on Friday Get INR checked on Friday. Dose of INR will be adjusted based on the dose. Follow up in the coumadin clinic for INR monitoring. Dose of gliburide has been decreased to 2.5 mg daily metoprolol has been added for blood pressure control Assessment: See discharge summary
[2021-07-08] MEDS: Metoprolol Succinate ER 50 MG TAB.ER.24H PO (10:24)
[2021-07-08] MEDS: amLODIPine Besylate 10 MG TABLET PO (10:24)
[2021-07-08] MEDS: glyBURIDE 5 MG TABLET 2.5 MG PO (10:24)
[2021-07-08] MEDS: calcitrioL 0.25 MCG CAPSULE PO (10:25)
[2021-07-08] MEDS: Cholecalciferol (Vitamin D3) 25 MCG TABLET 50 MCG PO (10:26)
[2021-07-08] MEDS: Ascorbic Acid 250 MG TABLET PO (10:26)
[2021-07-08] MEDS: Ferrous Sulfate 324 MG TABLET.DR PO (10:26)
[2021-07-08] MEDS: prednisoLONE Acetate 1 % Oph Susp 5 ML DRPBTL 1 DROP EYE-BOTH (10:28)
[2021-07-08] MEDS: Atropine Sulfate 1 % Ophth Sol 2 ML BOTTLE 1 DROP EYE-LEFT ×3 (10:29→20:55)
[2021-07-08] MEDS: Fluticasone Propionate Nasal 16 GM SPRAY 1 SPRAY NOSTRIL-B (10:31)
[2021-07-08] MEDS: timoloL maleate XE 0.5 % Gel 5 ML DRBTL 1 DROP EYE-RIGHT (10:31)
[2021-07-08 11:25] VITALS: BP 168/78; PULSE 79; RESP 17; TEMP 36.2; O2SAT 98
--- NOTE | 2021-07-08 14:50 | MHC.CM.PN ---
PATIENT AGREES TO SHIRT TERM REHAB AND TO PARTICIPATE IN P.T. SHE DOES REFUSES A COVID VACCINE; HOWEVER WHEN ASKED WHAT PATIENT PREFERS, SHE STATES TO GO HOME PATIENT THEN ADDS THAT SHE HAS TWO NEW PSYCHOLOGY LECTURER THAT ARE DUE TO COME TO HER HOME FRIDAY [facility] REQUESTED FOR 1100 TRANSPORT ON Friday07/09/21. SISTER, BHAVANA [phone] AWARE OF PLAN. HOUSING MAINTENANCE ([place]) [phone]) ALSO AWARE
--- NOTE | 2021-07-08 15:03 | HO.PM.IMPN ---
Subjective Subjective Date of Service: 07/08/21 Review of Systems Follow up Left leg DVT NO pain today Physical Exam Vital Signs: Vital Signs: Last Vital Signs Temp 97.1 F 07/08/21 11:25 Pulse 79 07/08/21 11:25 Resp 17 07/08/21 11:25 BP 168/78 H 07/08/21 11:25 Pulse Ox 98 07/08/21 11:25 BMI result Body Mass Index 25.7 Appearing in no acute distress lung sounds are clear to auscultation heart regular rate rhythm, clear S1, S2 positive bowel sounds, abdomen is soft, nontender neuro patient is alert x3, no focal deficits Objective Data Active Medications Acetaminophen (Acetaminophen 325 Mg Tablet) 650 mg PO Q6H PRN PRN Reason: Pain, Mild (Pain Scale 1-3) Last Admin: 07/03/21 17:29 Dose: 650 mg Documented by: SUSAN Amlodipine Besylate (Amlodipine Besylate 10 Mg Tablet) 10 mg PO DAILY [facility]; Protocol Last Admin: 07/08/21 10:24 Dose: 10 mg Documented by: SUSAN Ascorbic Acid (Ascorbic Acid 250 Mg Tablet) 250 mg PO DAILY [facility] Last Admin: 07/08/21 10:26 Dose: 250 mg Documented by: SUSAN Atorvastatin Calcium (Atorvastatin Calcium 80 Mg Tablet) 80 mg PO BEDTIME [facility] Last Admin: 07/07/21 21:07 Dose: Not Given Documented by: REBECCA Non-Admin Reason: Patient Refused Atropine Sulfate (Atropine Sulfate 1 % Ophth Jacki 2 Ml Bottle) 1 drop EYE-LEFT TID [facility] Last Admin: 07/08/21 10:29 Dose: 1 drop Documented by: SUSAN Calcitriol (Calcitriol 0.25 Mcg Capsule) 0.25 mcg PO DAILY [facility] Last Admin: 07/08/21 10:25 Dose: 0.25 mcg Documented by: SUSAN Ferrous Sulfate (Ferrous Sulfate 324 Mg Tablet.) 324 mg PO DAILY [facility] Last Admin: 07/08/21 10:26 Dose: 324 mg Documented by: SUASN Fluticasone Propionate (Fluticasone Propionate Nasal 16 Gm [place]) 1 spray NOSTRIL-B DAILY [facility] Last Admin: 07/08/21 10:31 Dose: 1 spray Documented by: SUSAN Glyburide (Glyburide 5 Mg Tablet) 2.5 mg PO DAILY [facility] Last Admin: 07/08/21 10:24 Dose: 2.5 mg Documented by: SUSAN Metoprolol Succinate (Metoprolol Succinate Er 50 Mg Tab.Er.24h) 50 mg PO DAILY [facility]; Protocol Last Admin: 07/08/21 10:24 Dose: 50 mg Documented by: SUSAN Pharmacy Consult (Consult Rx Perform Med Rec) 1 each MISCELLANE ONCE PRN PRN Reason: Consult order Pharmacy Consult (Consult Rx Perform Med Rec) 1 each MISCELLANE ONCE PRN PRN Reason: Consult order Prednisolone Acetate (Prednisolone Acetate 1 % Oph Susp 5 Ml Drpbtl) 1 drop EYE-BOTH DAILY [facility] Last Admin: 07/08/21 10:28 Dose: 1 drop Documented by: SUSAN Sodium Bicarbonate (Sodium Bicarbonate 650 Mg Tablet) 1,300 mg PO BID [facility] Last Admin: 07/08/21 10:27 Dose: Not Given Documented by: SUSAN Non-Admin Reason: Patient Refused Sodium Chloride (0.9 % Sodium Chloride Flush 3 Ml Syringe) 3 ml IVFLUSH QSHIFT [facility] Last Admin: 07/08/21 09:52 Dose: Not Given Documented by: SUSAN Non-Admin Reason: No Access Timolol Maleate (Timolol Maleate Xe 0.5 % Gel 5 Ml Drbtl) 1 drop EYE-RIGHT DAILY [facility] Last Admin: 07/08/21 10:31 Dose: 1 drop Documented by: SUSAN Vitamin D (Cholecalciferol (Vitamin D3) 25 Mcg Tablet) 50 mcg PO DAILY [facility] Last Admin: 07/08/21 10:26 Dose: 50 mcg Documented by: SUSAN Warfarin Sodium (Warfarin Sodium 4 Mg Tablet) 4 mg PO DAILY@1800 [facility] Labs CBC & Chem 7: 07/01/21 06:33 07/06/21 05:39 Labs: Laboratory Results - last 24 hr 07/08/21 06:02 PT 18.0 H INR 1.6 H Assessment and Plan (1) Acute kidney injury superimposed on CKD: Status: Acute Plan 76yo F diagnosed with extensive LLE DVT at [facility] 06/01/21, presented here with LLE swelling after signing out AMA from STR, found to be anemic UTI mixed bacteria in urine final culture finished ceftriaxone 3 days Extensive left lower extremity DVT failed Eliquis IVC filter placed 06/19/21 Discontinue heparin gtt Decrease warfarin to 2 mg and follow INR. Acute/chronic anemia related to CKD stage IV, transfused 2u pRBCs 06/16/21 with appropriate response in Hb worsening CKD 4, metabolic acidosis, renal function improved refusing IV and oral bicarbonate nephrology input appreciated, patient refusing dialysis advises to increase p.o. intake HTN fair control difficult to manage(compliance) DM2 control given limited treatment options continue glipizide physical deconditioning - PT: STR recommended, seeking placement options - pt declining all options presented, wants to go home without services dvt ppx - coumadin Attending Dr. Castro Patient requires continued hospitalization for the following reasons: pending safe discharge plan, refuses STR placement as the patient continue to refuse dialysis option as well. She is also declining to be vaccinated. Quality Stroke Does the patient have a stroke diagnosis?: No VTE Prior VTE?: Yes VTE Risk Level:: Medical - moderate - high VTE Device Contraindication: Treatment Not Indicated VTE Drug Contraindication: N/A - Med Ordered
--- NOTE | 2021-07-08 15:11 | PM.PNNEP ---
Subjective Subjective Date of Service: 07/08/21 Interval history: seen and examined this morning, events noted Physical Exam Vital Signs: Vital Signs: Last Vital Signs Temp 97.1 F 07/08/21 11:25 Pulse 79 07/08/21 11:25 Resp 17 07/08/21 11:25 BP 168/78 H 07/08/21 11:25 Pulse Ox 98 07/08/21 11:25 BMI result Body Mass Index 25.7 Const: General: cooperative, comfortable and no acute distress Orientation/consciousness: patient oriented x3 HEENT: Head: Yes normocephalic and Yes atraumatic Eyes: EOM: EOMs intact bilaterally Neck: Neck: Yes supple and Yes no JVD Resp: Auscultation: clear to auscultation bilaterally and diminished lung sounds Cardio: Jugular venous distension: no JVD Rate: regular rate Rhythm: regular rhythm Heart sounds: S1 normal heart sound present and S2 normal heart sound present GI: Palpation (GI): Soft to palpation Auscultation: normal bowel sounds Skin: Lesions: no lesions Neuro: General: patient oriented x3 and moves all extremities Extrem: General: Yes no clubbing, cyanosis or edema, Yes no pedal edema and Yes no calf tenderness Objective Data Labs CBC & Chem 7: 07/01/21 06:33 07/06/21 05:39 Labs: Laboratory Results - last 24 hr 07/08/21 06:02 PT 18.0 H INR 1.6 H Microbiology Microbiology Results: Microbiology 06/30/21 16:09 Urine clean catch - Clean Catch Midstream Urine Culture - Final Procedures Date of Service Date of Service: 07/08/21 Assessment & Plan Assessment and plan (1) Metabolic acidosis: Status: Acute Assessment and Plan: 1. CKD 5 w/o uremic sym[ptoms yet and so she is gong to wait to start HD--doesnt want PD 2. NAGMA: goal is HCO3 > 24 3. DVT 4. Anemia: Fe stores ok; will arrange procrit as outpt 5. MBD of CKD: check PTH/vit D REC: cont NaHCO3 1300 bid; if d/c'd then needs outpt labs in 2 wks and I will arrange f/u in office with me for prep of [employer] and EPO (2) CKD (chronic kidney disease) stage 4, GFR 15-29 ml/min: Status: Acute Time Spent With Patient Time: Total time spent is greater than 50% in coordination of care (as documented) at patient's floor/unit and/or counseling patient: Progress Note: Quality Stroke Does the patient have a stroke diagnosis?: No
[2021-07-08 15:50] VITALS: BP 171/77; PULSE 78; RESP 16; TEMP 36.5; O2SAT 97
[2021-07-08] MEDS: Warfarin Sodium 4 MG TABLET PO (17:18)
[2021-07-08 19:46] VITALS: BP 173/74; PULSE 80; RESP 17; TEMP 36.3; O2SAT 97
[2021-07-09] VITALS: BP 136/42; PULSE 68; RESP 16; TEMP 36.6
[2021-07-09 03:36] VITALS: BP 132/40; PULSE 72; RESP 16; TEMP 36.6; O2SAT 96
[2021-07-09] MEDS: Acetaminophen 325 MG TABLET 650 MG PO (05:34)
[2021-07-09 07:09] VITALS: BP 149/68; PULSE 74; RESP 18; TEMP 37.1; O2SAT 97
[2021-07-09] MEDS: Cholecalciferol (Vitamin D3) 25 MCG TABLET 50 MCG PO (09:11)
[2021-07-09] MEDS: Ascorbic Acid 250 MG TABLET PO (09:12)
[2021-07-09] MEDS: amLODIPine Besylate 10 MG TABLET PO (09:12)
[2021-07-09] MEDS: Metoprolol Succinate ER 50 MG TAB.ER.24H PO (09:12)
[2021-07-09] MEDS: Ferrous Sulfate 324 MG TABLET.DR PO (09:12)
[2021-07-09] MEDS: glyBURIDE 5 MG TABLET 2.5 MG PO (09:12)
[2021-07-09] MEDS: calcitrioL 0.25 MCG CAPSULE PO (09:12)
[2021-07-09] MEDS: Atropine Sulfate 1 % Ophth Sol 2 ML BOTTLE 1 DROP EYE-LEFT (09:16)
[2021-07-09] MEDS: Fluticasone Propionate Nasal 16 GM SPRAY 1 SPRAY NOSTRIL-B (09:16)
[2021-07-09] MEDS: timoloL maleate XE 0.5 % Gel 5 ML DRBTL 1 DROP EYE-RIGHT (09:16)
[2021-07-09] MEDS: prednisoLONE Acetate 1 % Oph Susp 5 ML DRPBTL 1 DROP EYE-BOTH (09:16)
--- NOTE | 2021-07-09 09:32 | MHC.CM.PN ---
OF THIS NOTE, PATIENT STILL REFUSING SERVICES BUT IS AWARE THAT [facility] IS STILL CONTACTED FOR HER SAFETY ASSESSMENT IN THE COMMUNITY. NO [facility] ACCEPTANCE YET. CASE MANAGEMENT TO STILL ATTEMPT. PATIENT WAS INFORMED THAT SHE DOES HAVE THE RIGHT TO REFUSE THEM, BUT THAT A REFERRAL IS STILL BEING PLACED IN THE EVENT THAT SHE GETS HOME AND REALIZES THAT SHE DOES NEED SERVICES. PATIENT AGREES THAT SHE WOULD BENEFIT FROM SERVICES, BUT IS TOO SCARED TO LET PEOPLE IN
[2021-07-09 11:12] LABS: INTERNATIONAL NORM RATIO 1.5 (0.9-1.1); Prothrombin Time 17.1 SEC (9.9-13.0)
--- NOTE | 2021-07-09 11:16 | PC.NURSE ---
Coumadin given to pt prior to discharge per Ronda Van
[2021-07-09] MEDS: Warfarin Sodium 4 MG TABLET PO (11:18)
--- NOTE | 2021-07-09 11:37 | PC.NURSE ---
This am pt assisted oob to wheel chair- 2 assist. Also assisted to BR to void. Brief applied for pt transport.
--- NOTE | 2021-07-09 11:43 | MHC.CM.PN ---
Addendum entered by Anh Lamar 07/09/21 11:46: CALL TO [phone] [facility] IS CLOSED FOR THE HOLIDAY. [facility] REPORT FILED ON FRIDAY Original Note: PATIENT IS DC CALL TO MAINTENANCE STAFF MEMBER, SANDRA @ [phone] WHO AGREESS TO MEET AMBULANCE AT PATIENT'S APARTMENT HE WILL UNLOCK DOOR FOR PATIENT
== END 2021-07-09 11:36 | disposition home health service (06) | DRG 300 ==
LOC: HO.ED 16:05 → HO.EDOVER 16:24 → HO.S3 17:07
PROVIDERS: Family Medicine; Internal Medicine Nephrology; Physician Assistant Medical; Student in an Organized Health Care Education/Training Program; Surgery Vascular Surgery; Admitting Provider Hospitalist; Emergency Provider Emergency Medicine Emergency Medical Services; PCP Internal Medicine; Visit Provider Nurse Practitioner Acute Care
PROC: 06H03DZ Insertion of Intraluminal Device into Inferior Vena Cava, Percutaneous Approach (ICD-10-PCS; principal; 2021-06-19 07:30)
DX: I82.412 Acute embolism and thrombosis of left femoral vein (principal); N18.4 Chronic kidney disease, stage 4 (severe); E87.2 Acidosis; N39.0 Urinary tract infection, site not specified; I82.432 Acute embolism and thrombosis of left popliteal vein; E11.51 Type 2 diabetes mellitus with diabetic peripheral angiopathy without gangrene; N25.0 Renal osteodystrophy; E78.5 Hyperlipidemia, unspecified; I12.9 Hypertensive chronic kidney disease with stage 1 through stage 4 chronic kidney disease, or unspecified chronic kidney disease; Z20.822 Contact with and (suspected) exposure to COVID-19; E11.22 Type 2 diabetes mellitus with diabetic chronic kidney disease; D63.1 Anemia in chronic kidney disease; Z79.51 Long term (current) use of inhaled steroids; Z79.01 Long term (current) use of anticoagulants; Z79.899 Other long term (current) drug therapy
CPT/HCPCS: 36415; 36430; 37191; 76937; 80048; 80053; 81001; 81003; 82272; 82947; 83540; 85025; 85027; 85610; 85730; 86850; 86900; 86901; 86923; 87086; 87635; 93971; 96374; 97110; 97163; 97530; 99152; 99284; 99285; C1769; C1880; C1894; J0696; J1200; J1940; J2270; P9016

== ENCOUNTER 2021-07-20 13:32 | Outpatient (REF) | payer MEDICARE, MEDICAID, SELFPAY ==
--- NOTE | ~2021-07-20 | US_ITS ---
EXAMINATION: US NONINVASIVE ASSESSMENT OF THE ARTERIES OF BOTH LOWER EXTREMITIES WITH PVR EXAM AND BILATERAL LOWER EXTREMITY DUPLEX Kimo Longoria MD CLINICAL INFORMATION: Peripheral vascular disease. TECHNIQUE: Ankle pulse volume recordings, ankle pressure measurements and ankle brachial indices were obtained of the lower extremity arterial system bilaterally in addition to duplex Doppler techniques with wave form analysis and measurement of velocities in the common femoral, profunda femoral, superficial femoral, popliteal and tibial arteries. The study was performed only at rest. COMPARISON: Arterial duplex study 04/17/2020. FINDINGS: There is a palg-gn-[id number] femoral-femoral bypass graft present which is widely patent but with a stenosis present in the inflow artery as well as in the proximal graft. In the graft, there is a proximal severe stenosis with a velocity of 347 with velocities throughout the remainder of the graft ranging from 94-194. Monophasic flow is seen. Right Le. The right ankle-brachial index is: 1.0 >0.97-1.25 = normal - no significant arterial disease 0.75-0.96 = mild peripheral arterial disease 0.5-0.74 = moderate peripheral arterial disease <0.50 = severe peripheral arterial disease 2. Right ankle pressure: normal. 3. Right ankle PVR waveform: Blunted 4. Right direct duplex Doppler findings: Common Femoral: 94 monophasic Profunda Femoris: 160 monophasic Proximal SFA: Occluded Mid SFA: 51 Distal SFA: 9 monophasic Popliteal: 44 monophasic Tibial: 47 monophasic Left Le. The left ankle-brachial index is: 0.97 >0.97-1.25 = normal - no significant arterial disease 0.75-0.96 = mild peripheral arterial disease 0.5-0.74 = moderate peripheral arterial disease <0.50 = severe peripheral arterial disease 2. Left ankle pressure: normal. 3. Left ankle PVR waveform: Blunted 4. Left direct duplex Doppler findings: Common Femoral: 768 monophasic (above the origin of the bypass graft) Profunda Femoris: 223 monophasic Proximal SFA: Occluded Mid SFA: Occluded Distal SFA: 41 reconstituted monophasic flow Popliteal: 65 monophasic Tibial: 39 monophasic US/US arterial duplex LE BI IMPRESSION: There is a patent stur-nr-xruwl femoral-femoral bypass graft present with monophasic flow throughout the lower extremities. There is a proximal stenosis seen in the graft. Severe stenosis left common femoral artery just proximal to anastomosis of the fem-fem bypass graft with velocities of 768 with associated left profunda femoris stenoses with velocity of 223. Bilateral SFA occlusions with reconstituted monophasic distal flow. Despite normal ABIs, flow is now monophasic which is somewhat unusual. ABIs may be elevated secondary to poor compressibility. CT angiography may be helpful for further evaluation.
--- NOTE | ~2021-07-20 | US_ITS ---
EXAMINATION: US NONINVASIVE ASSESSMENT OF THE ARTERIES OF BOTH LOWER EXTREMITIES WITH PVR EXAM AND BILATERAL LOWER EXTREMITY DUPLEX Kimo Longoria MD CLINICAL INFORMATION: Peripheral vascular disease. TECHNIQUE: Ankle pulse volume recordings, ankle pressure measurements and ankle brachial indices were obtained of the lower extremity arterial system bilaterally in addition to duplex Doppler techniques with wave form analysis and measurement of velocities in the common femoral, profunda femoral, superficial femoral, popliteal and tibial arteries. The study was performed only at rest. COMPARISON: Arterial duplex study 04/17/2020. FINDINGS: There is a [id number] femoral-femoral bypass graft present which is widely patent but with a stenosis present in the inflow artery as well as in the proximal graft. In the graft, there is a proximal severe stenosis with a velocity of 347 with velocities throughout the remainder of the graft ranging from 94-194. Monophasic flow is seen. Right Le. The right ankle-brachial index is: 1.0 >0.97-1.25 = normal - no significant arterial disease 0.75-0.96 = mild peripheral arterial disease 0.5-0.74 = moderate peripheral arterial disease <0.50 = severe peripheral arterial disease 2. Right ankle pressure: normal. 3. Right ankle PVR waveform: Blunted 4. Right direct duplex Doppler findings: Common Femoral: 94 monophasic Profunda Femoris: 160 monophasic Proximal SFA: Occluded Mid SFA: 51 Distal SFA: 9 monophasic Popliteal: 44 monophasic Tibial: 47 monophasic Left Le. The left ankle-brachial index is: 0.97 >0.97-1.25 = normal - no significant arterial disease 0.75-0.96 = mild peripheral arterial disease 0.5-0.74 = moderate peripheral arterial disease <0.50 = severe peripheral arterial disease 2. Left ankle pressure: normal. 3. Left ankle PVR waveform: Blunted 4. Left direct duplex Doppler findings: Common Femoral: 768 monophasic (above the origin of the bypass graft) Profunda Femoris: 223 monophasic Proximal SFA: Occluded Mid SFA: Occluded Distal SFA: 41 reconstituted monophasic flow Popliteal: 65 monophasic Tibial: 39 monophasic US/US SUKHDEV complete IMPRESSION: There is a patent guwc-[id number]-tfedo femoral-femoral bypass graft present with monophasic flow throughout the lower extremities. There is a proximal stenosis seen in the graft. Severe stenosis left common femoral artery just proximal to anastomosis of the fem-fem bypass graft with velocities of 768 with associated left profunda femoris stenoses with velocity of 223. Bilateral SFA occlusions with reconstituted monophasic distal flow. Despite normal ABIs, flow is now monophasic which is somewhat unusual. ABIs may be elevated secondary to poor compressibility. CT angiography may be helpful for further evaluation.
== END 2021-07-20 13:33 | disposition home or self-care (01) ==
LOC: HO.US 13:32
PROVIDERS: Visit Provider Surgery Vascular Surgery
DX: I73.9 Peripheral vascular disease, unspecified (principal)
CPT/HCPCS: 93923; 93925